=== PATIENT | male | born 1945 | race African-American/Black ===

== ENCOUNTER 2018-02-08 13:24 | Inpatient (IN) | payer OTHER ==
[~2018-02-08] VITALS: Ht 185.4 cm; Wt 132.5 kg
[~2018-02-08 13:24] MED LIST: AGG25C PO; ASP81EC PO; ASPI81TA27 PO; CHOL20007 BC; CLON0.1T PO; FURO40TA4 PO; HYDR50TA15 PO; LOSA100T27 PO; LOVA40TA72 PO; METO-158 PO; NIFE60TA59 PO
[2018-02-08 16:04] LABS: Basophils # (auto) 0.1 uL; Basophils % (auto) 0.9 % (0.0-2.0); Eosinophils # (auto) 0.2 uL; Eosinophils % (auto) 3.4 % (0.0-7.0); Hematocrit 40.9 % (41.0-53.0); Lymphocytes # (auto) 1.2 uL; Lymphocytes % (auto) 20.2 % (10.0-50.0); Mean Corpuscular Hemoglobin 29.5 pg (28.0-32.0); Mean Corpuscular Hgb Conc. 31.7 g/dL (32.0-36.0); Monocytes # (auto) 0.6 uL; Monocytes % (auto) 9.1 % (0.0-12.0); Neutrophils % (auto) 66.4 % (37.0-80.0); Nucleated Red Blood Cells % 0.1 %; Platelet Count (auto) 217 10^3/uL (140-450); Red Blood Cells 4.39 10^6/uL (4.5-5.90); Red Cell Distribution Width 13.7 % (11.8-14.3); White Blood Cell 6.1 10^3/uL (4.4-10.8)
[2018-02-08 16:06] LABS: Albumin 3.7 g/dL (3.4-5.0); BUN/Creatinine Ratio 8.7; Bilirubin, Total 0.5 mg/dL (0.2-1.0); Potassium 4.2 mmol/L (3.5-5.1); Total Protein 8.5 g/dL (6.4-8.2)
[2018-02-08] MEDS ORDERED: HYDROcodone-ACET 10/325MG TAB PO ONE (16:15)
[2018-02-08 16:40] LABS: Urine Bacteria MANY /hpf (None Seen); Urine Blood 2+ /uL (Negative); Urine Mucus FEW (None Seen); Urine Specific Gravity 1.013 (1.001-1.035); Urine WBC 137 /hpf (0 - 3); Urine WBC Clumps PRESENT /hpf (None Seen)
[2018-02-08] MEDS ORDERED: LEVOFLOXACIN 500MG 100 ML IV ONE (17:15)
[2018-02-08] MEDS ORDERED: FUROSEMIDE 40 MG TAB PO ONE (17:30)
[2018-02-08] MEDS ORDERED: cefTRIAXone 1GM/10ml IVPUSH 10 ML IV ONE (17:30)
[2018-02-08] MEDS ORDERED: cloNIDine HCL 0.1 MG TAB PO PRN (17:45)
[2018-02-08] MEDS ORDERED: hydrALAZINE HCL 25 MG TAB PO PRN (17:45)
[2018-02-08] MEDS ORDERED: MORPHINE SULF INJ 2 MG/ML SYRINGE 1ML IV PRN (17:45)
[2018-02-08] MEDS ORDERED: NITROGLYCERIN 0.4 MG SL TAB SL PRN (17:45)
[2018-02-08] MEDS ORDERED: TEMAZEPAM 15 MG CAP PO PRN (17:45)
[2018-02-08] MEDS ORDERED: ACETAMINOPHEN 325 MG TAB PO PRN (17:45)
[2018-02-08] MEDS ORDERED: ONDANSETRON HCL 4 MG/2 ML VIAL IV PRN (17:45)
[2018-02-08] MEDS ORDERED: DOCUSATE SOD 100 MG CAP PO PRN (17:45)
[2018-02-08] MEDS: NIFEdipine ER 30 MG TAB PO SCH (18:00)
[2018-02-08] MEDS: HYDROcodone-ACET 5/325MG TAB PO PRN (20:27)
[2018-02-08 22:00] VITALS: BP 161/98
[2018-02-08] MEDS ORDERED: ATORVASTATIN 20 MG TAB PO SCH (22:00)
[2018-02-08] MEDS ORDERED: LOSARTAN POTASSIUM 50 MG TAB PO SCH (22:00)
[2018-02-08] MEDS: SODIUM CHLOR 0.9% PF (SALINE LOCK) 10ML VIAL/SYR IV SCH (22:01)
[2018-02-08] MEDS: ASPIRIN-DIPYRIDAMOLE (25/200MG) CAPSULE PO SCH (22:03)
[2018-02-08 22:05] VITALS: BP 205/109
[2018-02-08] MEDS: cloNIDine HCL 0.1 MG TAB PO SCH (22:05)
[2018-02-08] MEDS: METOPROLOL TARTRATE 50 MG TAB PO SCH (22:05)
[2018-02-08] MEDS ORDERED: METO-5 PO (23:34)
[2018-02-08] MEDS ORDERED: CHOL20007 OR (23:34)
[2018-02-09] MEDS: HYDROcodone-ACET 5/325MG TAB PO PRN ×5 (00:29→17:59)
[2018-02-09 05:00] VITALS: BP 150/96
[2018-02-09 05:47] LABS: Basophils # (auto) 0.1 uL; Basophils % (auto) 0.9 % (0.0-2.0); Eosinophils # (auto) 0.2 uL; Eosinophils % (auto) 2.6 % (0.0-7.0); Hematocrit 36.4 % (41.0-53.0); Hemoglobin 11.6 g/dL (13.5-17.5); Lymphocytes # (auto) 1.3 uL; Lymphocytes % (auto) 17.2 % (10.0-50.0); Mean Corpuscular Hemoglobin 29.6 pg (28.0-32.0); Mean Corpuscular Hgb Conc. 31.9 g/dL (32.0-36.0); Mean Corpuscular Volume 92.7 fL (80.0-100.0); Monocytes # (auto) 0.7 uL; Monocytes % (auto) 9.9 % (0.0-12.0); Neutrophils # (auto) 5.1 uL; Neutrophils % (auto) 69.4 % (37.0-80.0); Platelet Count (auto) 210 10^3/uL (140-450); Red Blood Cells 3.92 10^6/uL (4.5-5.90); Red Cell Distribution Width 13.7 % (11.8-14.3); White Blood Cell 7.3 10^3/uL (4.4-10.8)
[2018-02-09] MEDS: METOPROLOL TARTRATE 50 MG TAB PO SCH ×2 (05:48→13:55)
[2018-02-09] MEDS: SODIUM CHLOR 0.9% PF (SALINE LOCK) 10ML VIAL/SYR IV SCH ×2 (05:48→13:55)
[2018-02-09 05:55] LABS: INR 0.97 (0.9-1.15); Prothrombin Time 10.4 sec (9.27-12.13)
[2018-02-09 06:07] LABS: Calcium 8.5 mg/dL (8.5-10.1); Potassium 4.7 mmol/L (3.5-5.1)
[2018-02-09 06:10] LABS: Albumin 2.9 g/dL (3.4-5.0); BUN/Creatinine Ratio 10.2
[2018-02-09 06:13] LABS: Bilirubin, Total 0.6 mg/dL (0.2-1.0); Total Protein 7.2 g/dL (6.4-8.2)
[2018-02-09 08:30] VITALS: BP 144/92
[2018-02-09] MEDS: ASPIRIN-DIPYRIDAMOLE (25/200MG) CAPSULE PO SCH (08:49)
[2018-02-09] MEDS: cloNIDine HCL 0.1 MG TAB PO SCH (08:50)
[2018-02-09] MEDS: NIFEdipine ER 30 MG TAB PO SCH ×2 (08:52→17:38)
[2018-02-09] MEDS ORDERED: cefTRIAXone 1GM/10ml IVPUSH 10 ML IV SCH (09:00)
[2018-02-09] MEDS ORDERED: ASPirin-EC 81 mg tab PO SCH (10:00)
[2018-02-09] MEDS ORDERED: FUROSEMIDE 40 MG TAB PO SCH (10:00)
[2018-02-09] MEDS ORDERED: CHOLECALCIFEROL (VITD3) 1,000 UNIT TAB PO SCH (10:00)
[2018-02-09 13:00] VITALS: BP 155/77
[2018-02-09] MEDS ORDERED: CIPR-217 PO (13:11)
[2018-02-09 17:21] VITALS: BP 163/98
== END 2018-02-09 18:12 | disposition home health service (06) | DRG 292 ==
LOC: ER 13:24 → OVERFLOW 13:25 → WEST WING 20:05
PROVIDERS: ADMIT Internal Medicine; ATTEND Internal Medicine
DX: I13.0 Hypertensive heart and chronic kidney disease with heart failure and stage 1 through stage 4 chronic kidney disease, or unspecified chronic kidney disease (principal); N39.0 Urinary tract infection, site not specified; N13.30 Unspecified hydronephrosis; J44.9 Chronic obstructive pulmonary disease, unspecified; R33.9 Retention of urine, unspecified; N18.3 Chronic kidney disease, stage 3 (moderate); K44.9 Diaphragmatic hernia without obstruction or gangrene; I70.0 Atherosclerosis of aorta; N32.89 Other specified disorders of bladder; D63.8 Anemia in other chronic diseases classified elsewhere; E78.5 Hyperlipidemia, unspecified; I50.9 Heart failure, unspecified; Z80.1 Family history of malignant neoplasm of trachea, bronchus and lung; Z82.5 Family history of asthma and other chronic lower respiratory diseases; Z86.73 Personal history of transient ischemic attack (TIA), and cerebral infarction without residual deficits; Z85.46 Personal history of malignant neoplasm of prostate; Z90.79 Acquired absence of other genital organ(s); Z79.899 Other long term (current) drug therapy; Z79.82 Long term (current) use of aspirin
CPT/HCPCS: 36415; 51702; 74176; 80053; 81001; 85025; 85610; 87086; 87088; 87186; 93926; 96365; 96375; J1956

== ENCOUNTER 2018-02-13 02:49 | Inpatient (IN) | payer OTHER ==
[~2018-02-13] VITALS: Ht 188 cm; Wt 130.4 kg
[~2018-02-13 02:49] MED LIST changes: -ASP81EC PO; -CHOL20007 BC; +CHOL20007 OR; +CIPR-217 PO; -LOSA100T27 PO; -METO-158 PO; +METO-5 PO
[2018-02-13 03:23] LABS: Urine Bacteria MANY /hpf (None Seen); Urine Blood 2+ /uL (Negative); Urine Specific Gravity 1.017 (1.001-1.035); Urine WBC 816 /hpf (0 - 3); Urine WBC Clumps PRESENT /hpf (None Seen)
[2018-02-13 03:44] LABS: Basophils # (auto) 0.1 uL; Basophils % (auto) 0.7 % (0.0-2.0); Eosinophils # (auto) 0.1 uL; Eosinophils % (auto) 0.7 % (0.0-7.0); Hematocrit 39.5 % (41.0-53.0); Hemoglobin 12.7 g/dL (13.5-17.5); Lymphocytes # (auto) 0.7 uL; Lymphocytes % (auto) 7.5 % (10.0-50.0); Mean Corpuscular Hemoglobin 29.8 pg (28.0-32.0); Mean Corpuscular Hgb Conc. 32.2 g/dL (32.0-36.0); Mean Corpuscular Volume 92.5 fL (80.0-100.0); Monocytes # (auto) 0.5 uL; Monocytes % (auto) 4.9 % (0.0-12.0); Neutrophils # (auto) 7.9 uL; Neutrophils % (auto) 86.2 % (37.0-80.0); Platelet Count (auto) 258 10^3/uL (140-450); Red Blood Cells 4.27 10^6/uL (4.5-5.90); Red Cell Distribution Width 13.6 % (11.8-14.3); White Blood Cell 9.2 10^3/uL (4.4-10.8)
[2018-02-13 04:03] LABS: Albumin 3.5 g/dL (3.4-5.0); BUN/Creatinine Ratio 11.9; Potassium 4.4 mmol/L (3.5-5.1)
[2018-02-13 04:05] LABS: Bilirubin, Total 0.3 mg/dL (0.2-1.0); Total Protein 8.6 g/dL (6.4-8.2)
[2018-02-13] MEDS ORDERED: SODIUM CHLORIDE 0.9% 500 ML IVB ONE (04:16)
[2018-02-13] MEDS ORDERED: ONDANSETRON HCL 4 MG/2 ML VIAL IV ONE (04:30)
[2018-02-13] MEDS ORDERED: NALBUPHINE HCL 10 MG/1ml INJECTION IV ONE (04:30)
[2018-02-13] MEDS ORDERED: PANTOPRAZOLE 40 MG/10 ML VIAL IV ONE (04:30)
[2018-02-13] MEDS ORDERED: ONDANSETRON HCL 4 MG/2 ML VIAL ONE (04:40)
[2018-02-13 04:56] LABS: Magnesium 2.3 mg/dL (1.6-2.6)
[2018-02-13 05:01] LABS: INR 0.99 (0.9-1.15); Partial Thromboplastin Time 31.3 sec (23.78-33.04); Prothrombin Time 10.6 sec (9.27-12.13)
[2018-02-13] MEDS ORDERED: CEFTRIAXONE SODIUM 2 GM in D5W 5% 50 ML IV ONE (06:15)
[2018-02-13] MEDS ORDERED: cefTRIAXone 1GM/10ml IVPUSH 10 ML IV ONE ×2 (06:30)
[2018-02-13] MEDS ORDERED: ONDANSETRON HCL 4 MG/2 ML VIAL IV PRN (07:00)
[2018-02-13] MEDS ORDERED: ACETAMINOPHEN 500 MG TAB PO PRN (07:00)
[2018-02-13] MEDS: METOPROLOL TARTRATE 50 MG TAB PO SCH (10:17)
[2018-02-13] MEDS: cefTRIAXone 1GM/10ml IVPUSH 10 ML IV SCH (10:17)
[2018-02-13] MEDS: NIFEdipine ER 30 MG TAB PO SCH (10:18)
[2018-02-13 11:16] VITALS: BP 154/88
[2018-02-13 13:00] VITALS: BP 167/97
[2018-02-13] MEDS: NALBUPHINE HCL 10 MG/1ml INJECTION IM PRN ×2 (15:39→22:03)
[2018-02-13 17:00] VITALS: BP 154/103
[2018-02-13] MEDS: PANTOPRAZOLE 40 MG/10 ML VIAL IV SCH ×2 (17:41→22:02)
[2018-02-13 20:00] VITALS: BP 145/73
[2018-02-13 21:54] VITALS: BP 145/73
[2018-02-14] MEDS: NALBUPHINE HCL 10 MG/1ml INJECTION IM PRN ×2 (02:09→05:57)
[2018-02-14] MEDS: HYDROcodone-ACET 5/325MG TAB PO PRN ×4 (03:24→21:09)
[2018-02-14 05:57] VITALS: BP 154/94
[2018-02-14 06:06] LABS: Basophils # (auto) 0 uL; Basophils % (auto) 0.5 % (0.0-2.0); Eosinophils # (auto) 0.1 uL; Eosinophils % (auto) 1.9 % (0.0-7.0); Hematocrit 37.5 % (41.0-53.0); Hemoglobin 11.8 g/dL (13.5-17.5); Lymphocytes # (auto) 1.2 uL; Lymphocytes % (auto) 15.9 % (10.0-50.0); Mean Corpuscular Hemoglobin 29.5 pg (28.0-32.0); Mean Corpuscular Hgb Conc. 31.5 g/dL (32.0-36.0); Mean Corpuscular Volume 93.6 fL (80.0-100.0); Monocytes # (auto) 0.8 uL; Monocytes % (auto) 11.3 % (0.0-12.0); Neutrophils # (auto) 5.2 uL; Neutrophils % (auto) 70.4 % (37.0-80.0); Platelet Count (auto) 232 10^3/uL (140-450); Red Blood Cells 4.01 10^6/uL (4.5-5.90); Red Cell Distribution Width 13.5 % (11.8-14.3); White Blood Cell 7.3 10^3/uL (4.4-10.8)
[2018-02-14 06:14] LABS: Calcium 8.6 mg/dL (8.5-10.1); Potassium 4.2 mmol/L (3.5-5.1)
[2018-02-14 06:18] LABS: BUN/Creatinine Ratio 13.1; Magnesium 2.7 mg/dL (1.6-2.6)
[2018-02-14] MEDS ORDERED: LIDOCAINE VISCOUS 2% 15ML UD ONE (08:09)
[2018-02-14] MEDS ORDERED: fentaNYL CITRATE 100 MCG/2 ML VL ONE (08:10)
[2018-02-14] MEDS ORDERED: diphenhdrAMINE HCL 50 MG/1 ML VL ONE (08:10)
[2018-02-14] MEDS: cefTRIAXone 1GM/10ml IVPUSH 10 ML IV SCH (08:10)
[2018-02-14] MEDS: PANTOPRAZOLE 40 MG/10 ML VIAL IV SCH (08:11)
[2018-02-14] MEDS: NIFEdipine ER 30 MG TAB PO SCH (08:11)
[2018-02-14] MEDS: METOPROLOL TARTRATE 50 MG TAB PO SCH (08:11)
[2018-02-14 09:11] VITALS: BP 145/83
[2018-02-14] MEDS: MIDAZOLAM HCL 5 MG/ML-1ML VIAL ONE ×2 (10:15→10:18)
[2018-02-14] MEDS ORDERED: hydrALAZINE HCL 20 MG/ML VL IV PRN (11:45)
[2018-02-14] MEDS: NALBUPHINE HCL 10 MG/1ml INJECTION IV PRN ×3 (11:53→22:40)
[2018-02-14 13:00] VITALS: BP 164/96
[2018-02-14] MEDS ORDERED: hydrALAZINE HCL 25 MG TAB PO SCH (14:00)
[2018-02-14] MEDS: hydrALAZINE HCL 25 MG TAB PO SCH ×2 (14:11→22:42)
[2018-02-14 16:52] VITALS: BP 154/81
[2018-02-14] MEDS ORDERED: PHENAZOPYRIDINE HCL 100 MG TAB PO ONE (17:45)
[2018-02-14 21:26] VITALS: BP 169/94
[2018-02-14] MEDS: PANTOPRAZOLE 40 MG TAB PO SCH (22:41)
[2018-02-15] MEDS: HYDROcodone-ACET 5/325MG TAB PO PRN ×3 (03:25→13:34)
[2018-02-15] MEDS: NALBUPHINE HCL 10 MG/1ml INJECTION IV PRN (04:35)
[2018-02-15 05:38] VITALS: BP 177/99
[2018-02-15] MEDS: hydrALAZINE HCL 25 MG TAB PO SCH ×2 (05:50→13:35)
[2018-02-15 06:14] LABS: Basophils # (auto) 0.1 uL; Basophils % (auto) 0.8 % (0.0-2.0); Eosinophils # (auto) 0.3 uL; Eosinophils % (auto) 2.7 % (0.0-7.0); Hematocrit 37.9 % (41.0-53.0); Hemoglobin 11.8 g/dL (13.5-17.5); Lymphocytes # (auto) 1.8 uL; Lymphocytes % (auto) 14.9 % (10.0-50.0); Mean Corpuscular Hgb Conc. 31.1 g/dL (32.0-36.0); Mean Corpuscular Volume 93.3 fL (80.0-100.0); Monocytes # (auto) 1.3 uL; Monocytes % (auto) 10.7 % (0.0-12.0); Neutrophils # (auto) 8.3 uL; Neutrophils % (auto) 70.9 % (37.0-80.0); Nucleated Red Blood Cells % 0.2 %; Platelet Count (auto) 259 10^3/uL (140-450); Red Blood Cells 4.06 10^6/uL (4.5-5.90); Red Cell Distribution Width 13.7 % (11.8-14.3); White Blood Cell 11.7 10^3/uL (4.4-10.8)
[2018-02-15 06:19] LABS: Potassium 4.3 mmol/L (3.5-5.1)
[2018-02-15 06:29] LABS: Calcium 8.8 mg/dL (8.5-10.1); Magnesium 2.8 mg/dL (1.6-2.6)
[2018-02-15] MEDS: PHENAZOPYRIDINE HCL 100 MG TAB PO SCH ×2 (08:24→12:57)
[2018-02-15] MEDS: cefTRIAXone 1GM/10ml IVPUSH 10 ML IV SCH (08:25)
[2018-02-15 09:00] VITALS: BP 154/95
[2018-02-15] MEDS: NIFEdipine ER 30 MG TAB PO SCH (10:12)
[2018-02-15] MEDS: METOPROLOL TARTRATE 50 MG TAB PO SCH (10:12)
[2018-02-15] MEDS: PANTOPRAZOLE 40 MG TAB PO SCH (10:13)
[2018-02-15] MEDS ORDERED: AMOXICILLIN/CLAVUL 875 MG TAB PO SCH (12:45)
[2018-02-15 15:10] VITALS: BP 145/86
== END 2018-02-15 15:50 | disposition home health service (06) | DRG 689 ==
LOC: ER 02:49 → CENTRAL 02:50 → TELE-CENTR 08:00
PROVIDERS: ADMIT Nurse Practitioner Family; ATTEND Internal Medicine
PROC: 0DB78ZX Excision of Stomach, Pylorus, Via Natural or Artificial Opening Endoscopic, Diagnostic (ICD-10-PCS; principal; 2018-02-14 10:13)
DX: N30.01 Acute cystitis with hematuria (principal); K29.61 Other gastritis with bleeding; K29.81 Duodenitis with bleeding; K57.91 Diverticulosis of intestine, part unspecified, without perforation or abscess with bleeding; I13.0 Hypertensive heart and chronic kidney disease with heart failure and stage 1 through stage 4 chronic kidney disease, or unspecified chronic kidney disease; N13.9 Obstructive and reflux uropathy, unspecified; K44.9 Diaphragmatic hernia without obstruction or gangrene; K40.90 Unilateral inguinal hernia, without obstruction or gangrene, not specified as recurrent; N18.3 Chronic kidney disease, stage 3 (moderate); E11.22 Type 2 diabetes mellitus with diabetic chronic kidney disease; I50.9 Heart failure, unspecified; E78.5 Hyperlipidemia, unspecified; E66.9 Obesity, unspecified; J44.9 Chronic obstructive pulmonary disease, unspecified; N32.0 Bladder-neck obstruction; N40.0 Benign prostatic hyperplasia without lower urinary tract symptoms; Z80.1 Family history of malignant neoplasm of trachea, bronchus and lung; Z82.5 Family history of asthma and other chronic lower respiratory diseases; Z79.82 Long term (current) use of aspirin; Z85.46 Personal history of malignant neoplasm of prostate; Z86.73 Personal history of transient ischemic attack (TIA), and cerebral infarction without residual deficits; Z90.79 Acquired absence of other genital organ(s)
CPT/HCPCS: 36415; 71046; 74176; 80048; 80053; 81001; 82150; 83605; 83690; 83735; 85025; 85610; 85730; 87081; 93005; 93926; 94761; 96361; 96374; 96375; C9113; J0696; J2250; J2405; J7060

== ENCOUNTER 2018-02-23 16:09 | Inpatient (IN) | payer OTHER ==
[2018-02-22 20:50] VITALS: BP 168/88
[~2018-02-23] VITALS: Ht 185.4 cm; Wt 135.0 kg
[~2018-02-23 16:09] MED LIST changes: -ASPI81TA27 PO; -CIPR-217 PO; -FURO40TA4 PO
[2018-02-23 19:18] LABS: Basophils # (auto) 0.1 uL; Basophils % (auto) 1.3 % (0.0-2.0); Eosinophils # (auto) 0.3 uL; Hemoglobin 11.6 g/dL (13.5-17.5); Lymphocytes # (auto) 1.5 uL; Lymphocytes % (auto) 21.6 % (10.0-50.0); Mean Corpuscular Hemoglobin 28.7 pg (28.0-32.0); Mean Corpuscular Hgb Conc. 31.4 g/dL (32.0-36.0); Mean Corpuscular Volume 91.4 fL (80.0-100.0); Monocytes # (auto) 0.8 uL; Monocytes % (auto) 11.2 % (0.0-12.0); Neutrophils # (auto) 4.2 uL; Neutrophils % (auto) 61.9 % (37.0-80.0); Platelet Count (auto) 268 10^3/uL (140-450); Red Blood Cells 4.05 10^6/uL (4.5-5.90); Red Cell Distribution Width 13.4 % (11.8-14.3); White Blood Cell 6.8 10^3/uL (4.4-10.8)
[2018-02-23 19:27] LABS: INR 0.95 (0.9-1.15); Partial Thromboplastin Time 27.1 sec (23.78-33.04); Prothrombin Time 10.2 sec (9.27-12.13)
[2018-02-23 19:32] LABS: Albumin 3.1 g/dL (3.4-5.0); BUN/Creatinine Ratio 15.2; Calcium 8.1 mg/dL (8.5-10.1); Magnesium 2.3 mg/dL (1.6-2.6); Potassium 4.1 mmol/L (3.5-5.1)
[2018-02-23 19:35] LABS: Bilirubin, Total 0.4 mg/dL (0.2-1.0); Total Protein 7.8 g/dL (6.4-8.2)
[2018-02-23] MEDS ORDERED: NIFEdipine 10 MG CAP PO ONE (19:45)
[2018-02-23] MEDS ORDERED: ACETAMINOPHEN 500 MG TAB PO PRN (19:45)
[2018-02-23] MEDS ORDERED: LORazepam 0.5 MG TAB PO PRN (19:45)
[2018-02-23] MEDS ORDERED: MORPHINE SULF(PF) 0.5MG/ML 10ML VIAL IV PRN (19:45)
[2018-02-23] MEDS ORDERED: hydrALAZINE HCL 25 MG TAB PO ONE (19:45)
[2018-02-23] MEDS ORDERED: cefTRIAXone 1GM/10ml IVPUSH 10 ML IV ONE (19:45)
[2018-02-23] MEDS ORDERED: NITROGLYCERIN 0.4 MG SL TAB SL PRN (19:45)
[2018-02-23] MEDS ORDERED: hydrALAZINE HCL 20 MG/ML VL IV ONE (19:45)
[2018-02-23] MEDS ORDERED: DEXTROSE (50%) 50ML SYRG IV PRN (19:45)
[2018-02-23] MEDS ORDERED: METOPROLOL TARTRATE 50 MG TAB PO ONE (19:45)
[2018-02-23] MEDS ORDERED: cloNIDine HCL 0.1 MG TAB PO ONE (19:45)
[2018-02-23] MEDS ORDERED: PROMETHAZINE HCL 25 MG/ML 1ML IV PRN (19:45)
[2018-02-23] MEDS ORDERED: TEMAZEPAM 15 MG CAP PO PRN (19:45)
[2018-02-23] MEDS: PRAVASTATIN SODIUM 20 MG TAB PO SCH (21:31)
[2018-02-23] MEDS: hydrALAZINE HCL 25 MG TAB PO SCH (21:31)
[2018-02-23] MEDS: ACCU-CHEK COMFORT CURVE STRIP VI SCH (21:32)
[2018-02-23] MEDS: NIFEdipine ER 30 MG TAB PO SCH (21:32)
[2018-02-23] MEDS ORDERED: LOSA100T27 PO (21:56)
[2018-02-23] MEDS ORDERED: METO-169 PO (21:56)
[2018-02-23] MEDS ORDERED: PANT40TA2 PO (21:56)
[2018-02-23] MEDS: InsuLIN REG 1unit/0.01ml Soln (100units/ml) SC SCH (21:57)
[2018-02-23 21:58] VITALS: BP 168/88
[2018-02-23 23:20] VITALS: BP 117/62
[2018-02-24 04:17] VITALS: BP 156/100
[2018-02-24] MEDS: HYDROcodone-ACET 5/325MG TAB PO PRN ×2 (04:22→10:15)
[2018-02-24] MEDS: ACCU-CHEK COMFORT CURVE STRIP VI SCH ×4 (06:03→22:13)
[2018-02-24] MEDS: InsuLIN REG 1unit/0.01ml Soln (100units/ml) SC SCH ×4 (06:03→22:00)
[2018-02-24 08:25] VITALS: BP 148/91
[2018-02-24] MEDS: ENALAPRIL MALEATE 10 MG TAB PO SCH (10:09)
[2018-02-24] MEDS: METOPROLOL SUCCINATE XL 50 MG TAB PO SCH (10:10)
[2018-02-24] MEDS: PANTOPRAZOLE 40 MG TAB PO SCH (10:11)
[2018-02-24] MEDS: NIFEdipine ER 30 MG TAB PO SCH ×2 (10:11→22:12)
[2018-02-24] MEDS: cloNIDine HCL 0.1 MG TAB PO SCH ×3 (10:12→22:12)
[2018-02-24] MEDS: hydrALAZINE HCL 25 MG TAB PO SCH ×2 (10:12→22:11)
[2018-02-24] MEDS: cefTRIAXone 1GM/10ml IVPUSH 10 ML IV SCH (10:14)
[2018-02-24] MEDS: NITROGLYCERIN 0.2MG/HR TOPICAL PATCH TD SCH (10:14)
[2018-02-24] MEDS: NALBUPHINE HCL 10 MG/1ml INJECTION IV PRN ×3 (12:19→21:00)
[2018-02-24 12:57] VITALS: BP 154/90
[2018-02-24] MEDS ORDERED: fentaNYL CITRATE 100 MCG/2 ML VL ONE (14:48)
[2018-02-24] MEDS ORDERED: MIDAZOLAM HCL 1MG/1ML-2 ML VIAL ONE (14:48)
[2018-02-24] MEDS ORDERED: LIDOCAINE 2% (LOCAL ANESTH.) PF 5ml SDV ONE ×2 (15:28→15:47)
[2018-02-24 17:00] VITALS: BP 154/84
[2018-02-24 22:00] VITALS: BP 145/67
[2018-02-24] MEDS: PRAVASTATIN SODIUM 20 MG TAB PO SCH (22:12)
[2018-02-24 23:39] LABS: Urine Bacteria NONE SEEN /hpf (None Seen); Urine Blood 2+ /uL (Negative); Urine Specific Gravity 1.007 (1.001-1.035); Urine WBC 2 /hpf (0 - 3)
[2018-02-25] MEDS: NALBUPHINE HCL 10 MG/1ml INJECTION IV PRN ×3 (00:45→08:55)
[2018-02-25 05:18] VITALS: BP 116/69
[2018-02-25] MEDS: ACCU-CHEK COMFORT CURVE STRIP VI SCH ×3 (06:20→17:00)
[2018-02-25] MEDS: InsuLIN REG 1unit/0.01ml Soln (100units/ml) SC SCH ×3 (06:20→17:00)
[2018-02-25 06:54] LABS: Basophils # (auto) 0 uL; Basophils % (auto) 0.9 % (0.0-2.0); Eosinophils # (auto) 0.2 uL; Eosinophils % (auto) 4.1 % (0.0-7.0); Hematocrit 35.2 % (41.0-53.0); Hemoglobin 11.2 g/dL (13.5-17.5); Lymphocytes % (auto) 19.3 % (10.0-50.0); Mean Corpuscular Hemoglobin 29.5 pg (28.0-32.0); Mean Corpuscular Volume 92.1 fL (80.0-100.0); Monocytes # (auto) 0.6 uL; Monocytes % (auto) 11.6 % (0.0-12.0); Neutrophils # (auto) 3.4 uL; Neutrophils % (auto) 64.1 % (37.0-80.0); Platelet Count (auto) 232 10^3/uL (140-450); Red Blood Cells 3.82 10^6/uL (4.5-5.90); Red Cell Distribution Width 13.4 % (11.8-14.3); White Blood Cell 5.4 10^3/uL (4.4-10.8)
[2018-02-25 07:00] LABS: Partial Thromboplastin Time 27.2 sec (23.78-33.04); Prothrombin Time 10.7 sec (9.27-12.13)
[2018-02-25 07:08] LABS: BUN/Creatinine Ratio 15.7; Calcium 8.5 mg/dL (8.5-10.1); Potassium 4.2 mmol/L (3.5-5.1)
[2018-02-25 07:53] VITALS: BP 149/84
[2018-02-25] MEDS: cefTRIAXone 1GM/10ml IVPUSH 10 ML IV SCH (09:00)
[2018-02-25] MEDS: NIFEdipine ER 30 MG TAB PO SCH (10:00)
[2018-02-25] MEDS: METOPROLOL SUCCINATE XL 50 MG TAB PO SCH (10:00)
[2018-02-25] MEDS: hydrALAZINE HCL 25 MG TAB PO SCH (10:00)
[2018-02-25] MEDS: PANTOPRAZOLE 40 MG TAB PO SCH (10:00)
[2018-02-25] MEDS: NITROGLYCERIN 0.2MG/HR TOPICAL PATCH TD SCH (10:00)
[2018-02-25] MEDS: ENALAPRIL MALEATE 10 MG TAB PO SCH (10:00)
[2018-02-25] MEDS: cloNIDine HCL 0.1 MG TAB PO SCH (10:00)
[2018-02-25 12:18] VITALS: BP 154/85
[2018-02-25] MEDS: HYDROcodone-ACET 5/325MG TAB PO PRN (13:57)
[2018-02-25 16:49] VITALS: BP 157/82
[2018-02-26] MEDS ORDERED: ERGOCALCIFEROL 50,000 UNIT(1.25MG) CAP PO SCH (10:00)
[2018-03-08] MEDS ORDERED: FEBU80TA PO (13:30)
[2018-03-08] MEDS ORDERED: FURO40TA4 PO (13:30)
[2018-03-08] MEDS ORDERED: ALBU1AER4 IN (13:55)
[2018-03-08] MEDS ORDERED: ASPI81TA27 PO (13:55)
== END 2018-02-25 17:35 | disposition home health service (06) | DRG 697 ==
LOC: ER 16:09 → TELE 16:10 → TELE-EAST 20:50
PROVIDERS: ADMIT Internal Medicine; ATTEND Internal Medicine
PROC: 0T9B30Z Drainage of Bladder with Drainage Device, Percutaneous Approach (ICD-10-PCS; principal; 2018-02-24)
DX: N35.9 Urethral stricture, unspecified (principal); N13.8 Other obstructive and reflux uropathy; I11.0 Hypertensive heart disease with heart failure; I50.9 Heart failure, unspecified; N40.1 Benign prostatic hyperplasia with lower urinary tract symptoms; R32 Unspecified urinary incontinence; J44.9 Chronic obstructive pulmonary disease, unspecified; E78.5 Hyperlipidemia, unspecified; E66.9 Obesity, unspecified; E11.9 Type 2 diabetes mellitus without complications; Z82.49 Family history of ischemic heart disease and other diseases of the circulatory system; Z82.5 Family history of asthma and other chronic lower respiratory diseases; Z86.73 Personal history of transient ischemic attack (TIA), and cerebral infarction without residual deficits; Z90.79 Acquired absence of other genital organ(s); Z68.39 Body mass index [BMI] 39.0-39.9, adult
CPT/HCPCS: 10022; 36415; 51702; 71045; 72192; 77012; 80048; 80053; 81001; 82962; 83036; 83735; 83880; 85025; 85610; 85730; 87081; 87086; 93005; 94761; 96374; C1729; J2250

== ENCOUNTER 2018-05-06 14:26 | Emergency (ER) | payer OTHER ==
[~2018-05-06] VITALS: Ht 188 cm; Wt 127.0 kg
[~2018-05-06 14:26] MED LIST changes: +ALBU1AER4 IN; +ASPI81TA27 PO; +FEBU80TA PO; +FURO40TA4 PO; +LOSA100T27 PO; +METO-169 PO; -METO-5 PO; +PANT40TA2 PO
[2018-05-06 14:33] VITALS: BP 147/80
[2018-05-07] MEDS ORDERED: CIPR-187 PO (10:32)
[2018-05-07] MEDS ORDERED: HYDR-4683 PO (11:16)
== END 2018-05-06 14:37 | disposition left against medical advice (07) ==
LOC: ER 14:29
DX: R33.9 Retention of urine, unspecified (principal); I11.0 Hypertensive heart disease with heart failure; I50.9 Heart failure, unspecified; E11.9 Type 2 diabetes mellitus without complications; J44.9 Chronic obstructive pulmonary disease, unspecified; Z86.73 Personal history of transient ischemic attack (TIA), and cerebral infarction without residual deficits; Z79.899 Other long term (current) drug therapy; Z53.29 Procedure and treatment not carried out because of patient's decision for other reasons

== ENCOUNTER 2018-05-06 17:28 | Inpatient (IN) | payer OTHER ==
[~2018-05-06] VITALS: Ht 185.4 cm; Wt 127.0 kg
[2018-05-06] MEDS ORDERED: SODIUM CHLORIDE LOCK 10 ML ONE (19:02)
[2018-05-06] MEDS ORDERED: MIDAZOLAM HCL 1MG/1ML-2 ML VIAL ONE (19:02)
[2018-05-06] MEDS ORDERED: PROPOFOL 10 MG/ML 20 ML IV ONE (19:02)
[2018-05-06] MEDS ORDERED: ONDANSETRON HCL 4 MG/2 ML VIAL ONE (19:02)
[2018-05-06] MEDS ORDERED: fentaNYL CITRATE 100 MCG/2 ML VL ONE (19:13)
[2018-05-06] MEDS ORDERED: PROMETHAZINE HCL 25 MG/ML 1ML IV PRN (19:15)
[2018-05-06] MEDS ORDERED: ACETAMINOPHEN 500 MG TAB PO PRN (19:15)
[2018-05-06] MEDS ORDERED: DEXTROSE (50%) 50ML SYRG IV PRN (19:15)
[2018-05-06] MEDS ORDERED: traMADol HCL 50 MG TAB PO PRN (19:15)
[2018-05-06] MEDS ORDERED: cefTRIAXone 1GM/10ml IVPUSH 10 ML IV ONE (19:15)
[2018-05-06] MEDS ORDERED: MORPHINE SULF INJ 2 MG/ML SYRINGE 1ML IV PRN (19:15)
[2018-05-06] MEDS ORDERED: METOCLOPRAMIDE HCL 5MG/ml INJ 2ml VIAL IV ONE (19:15)
[2018-05-06] MEDS ORDERED: ACCU-CHEK COMFORT CURVE STRIP VI ONE (19:15)
[2018-05-06] MEDS ORDERED: Albuterol Sulfate (Proair Respiclick) 108 MCG IN SCH (19:15)
[2018-05-06] MEDS ORDERED: fentaNYL CITRATE 100 MCG/2 ML VL IV ONE (20:00)
[2018-05-06 20:02] LABS: Basophils # (auto) 0 uL; Basophils % (auto) 0.7 % (0.0-2.0); Eosinophils # (auto) 0.2 uL; Eosinophils % (auto) 3.5 % (0.0-7.0); Hematocrit 36.4 % (41.0-53.0); Hemoglobin 11.3 g/dL (13.5-17.5); Lymphocytes # (auto) 1.5 uL; Lymphocytes % (auto) 23.6 % (10.0-50.0); Mean Corpuscular Hemoglobin 30.3 pg (28.0-32.0); Mean Corpuscular Hgb Conc. 31.1 g/dL (32.0-36.0); Mean Corpuscular Volume 97.4 fL (80.0-100.0); Monocytes # (auto) 0.6 uL; Monocytes % (auto) 9.6 % (0.0-12.0); Neutrophils % (auto) 62.6 % (37.0-80.0); Nucleated Red Blood Cells % 0.2 %; Platelet Count (auto) 217 10^3/uL (140-450); Red Blood Cells 3.74 10^6/uL (4.5-5.90); Red Cell Distribution Width 14.6 % (11.8-14.3); White Blood Cell 6.4 10^3/uL (4.4-10.8)
[2018-05-06] MEDS ORDERED: SUCCINYLCHOLINE CHLORIDE 20 MG/ML 10ML VIAL IV ONE (20:07)
[2018-05-06 20:12] LABS: INR 0.96 (0.9-1.15); Partial Thromboplastin Time 26.9 sec (23.78-33.04); Prothrombin Time 10.3 sec (9.27-12.13)
[2018-05-06 20:17] LABS: Albumin 3.2 g/dL (3.4-5.0); Calcium 8.5 mg/dL (8.5-10.1)
[2018-05-06 20:20] LABS: BUN/Creatinine Ratio 12.7
[2018-05-06 21:00] LABS: Bilirubin, Total 0.4 mg/dL (0.2-1.0); Potassium 3.5 mmol/L (3.5-5.1); Total Protein 7.7 g/dL (6.4-8.2)
[2018-05-06] MEDS ORDERED: BELLADONNA ALKAL/OPIUM (16.2/30MG) RECT SUPP PR ONE (21:15)
[2018-05-06] MEDS ORDERED: PRAVASTATIN SODIUM 20 MG TAB PO SCH (22:00)
[2018-05-06 22:22] VITALS: BP 157/90
[2018-05-06 23:00] VITALS: BP 152/90
[2018-05-06] MEDS: cloNIDine HCL 0.1 MG TAB PO SCH (23:17)
[2018-05-06] MEDS: NIFEdipine ER 30 MG TAB PO SCH (23:18)
[2018-05-06] MEDS: ASPIRIN-DIPYRIDAMOLE (25/200MG) CAPSULE PO SCH (23:18)
[2018-05-06] MEDS: PANTOPRAZOLE 40 MG TAB PO SCH (23:18)
[2018-05-06] MEDS: hydrALAZINE HCL 25 MG TAB PO SCH (23:19)
[2018-05-06] MEDS: METOPROLOL TARTRATE 50 MG TAB PO SCH (23:20)
[2018-05-06] MEDS: InsuLIN REG 1unit/0.01ml Soln (100units/ml) SC SCH (23:28)
[2018-05-06] MEDS: ACCU-CHEK COMFORT CURVE STRIP VI SCH (23:28)
[2018-05-07 03:32] LABS: Urine Bacteria NONE SEEN /hpf (None Seen); Urine Blood 3+ /uL (Negative); Urine Specific Gravity 1.016 (1.001-1.035); Urine WBC 358 /hpf (0 - 3)
[2018-05-07 04:47] VITALS: BP 118/78
[2018-05-07] MEDS: InsuLIN REG 1unit/0.01ml Soln (100units/ml) SC SCH ×2 (06:38→11:17)
[2018-05-07] MEDS: ACCU-CHEK COMFORT CURVE STRIP VI SCH ×2 (06:38→11:17)
[2018-05-07] MEDS ORDERED: ALBUTEROL SULF 2.5 MG/0.5ML(0.5%) NEB SOLN NEB PRN (07:30)
[2018-05-07 09:00] VITALS: BP 130/74
[2018-05-07] MEDS ORDERED: cefTRIAXone 1GM/10ml IVPUSH 10 ML IV SCH (09:00)
[2018-05-07] MEDS: NIFEdipine ER 30 MG TAB PO SCH (09:50)
[2018-05-07] MEDS: PANTOPRAZOLE 40 MG TAB PO SCH (09:51)
[2018-05-07] MEDS: ASPIRIN-DIPYRIDAMOLE (25/200MG) CAPSULE PO SCH (09:51)
[2018-05-07] MEDS: METOPROLOL TARTRATE 50 MG TAB PO SCH (09:51)
[2018-05-07] MEDS: hydrALAZINE HCL 25 MG TAB PO SCH (09:51)
[2018-05-07] MEDS: cloNIDine HCL 0.1 MG TAB PO SCH (09:52)
[2018-05-07] MEDS ORDERED: FUROSEMIDE 40 MG TAB PO SCH (10:00)
[2018-05-07] MEDS ORDERED: LOSARTAN POTASSIUM 50 MG TAB PO SCH (10:00)
[2018-05-07] MEDS ORDERED: CIPR-187 PO (10:32)
[2018-05-07] MEDS ORDERED: HYDR-4683 PO (11:16)
[2018-05-07] MEDS ORDERED: HYDROcodone-ACET 5/325MG TAB PO PRN (11:30)
[2018-05-07 11:47] VITALS: BP 130/74
== END 2018-05-07 13:05 | disposition home or self-care (01) | DRG 669 ==
LOC: ER 17:32 → OVERFLOW 17:33 → CENTRAL 22:05
PROVIDERS: ADMIT Internal Medicine; ATTEND Internal Medicine
PROC: 0TBC8ZZ Excision of Bladder Neck, Via Natural or Artificial Opening Endoscopic (ICD-10-PCS; principal; 2018-05-06 20:07)
DX: R33.9 Retention of urine, unspecified (principal); N39.0 Urinary tract infection, site not specified; I13.0 Hypertensive heart and chronic kidney disease with heart failure and stage 1 through stage 4 chronic kidney disease, or unspecified chronic kidney disease; E11.22 Type 2 diabetes mellitus with diabetic chronic kidney disease; E78.5 Hyperlipidemia, unspecified; N18.9 Chronic kidney disease, unspecified; K21.9 Gastro-esophageal reflux disease without esophagitis; M10.9 Gout, unspecified; E66.9 Obesity, unspecified; I50.9 Heart failure, unspecified; J44.9 Chronic obstructive pulmonary disease, unspecified; Z82.49 Family history of ischemic heart disease and other diseases of the circulatory system; Z82.5 Family history of asthma and other chronic lower respiratory diseases; Z86.73 Personal history of transient ischemic attack (TIA), and cerebral infarction without residual deficits; Z80.9 Family history of malignant neoplasm, unspecified; Z79.899 Other long term (current) drug therapy
CPT/HCPCS: 36415; 80053; 81001; 82962; 83036; 83735; 85025; 85610; 85730; 87086; 93005; 94761; J0330; J0696; J2250; J2405; J2704

== ENCOUNTER 2018-06-19 14:03 | Emergency (ER) | payer OTHER ==
[~2018-06-19] VITALS: Ht 185.4 cm; Wt 127.0 kg
[~2018-06-19 14:03] MED LIST changes: +CIPR-187 PO; +HYDR-4683 PO; +LOSA-49 PO; -LOSA100T27 PO
[2018-06-19] MEDS ORDERED: MORPHINE SULFATE 4 MG/ML SYR/VIAL IV ONE (14:45)
[2018-06-19] MEDS ORDERED: ONDANSETRON HCL 4 MG/2 ML VIAL IV ONE (14:45)
[2018-06-19 15:27] LABS: Basophils # (auto) 0.1 uL; Basophils % (auto) 0.7 % (0.0-2.0); Eosinophils # (auto) 0.2 uL; Eosinophils % (auto) 2.3 % (0.0-7.0); Hematocrit 39.7 % (41.0-53.0); Hemoglobin 12.8 g/dL (13.5-17.5); Lymphocytes # (auto) 0.9 uL; Lymphocytes % (auto) 11.5 % (10.0-50.0); Mean Corpuscular Hemoglobin 29.9 pg (28.0-32.0); Mean Corpuscular Hgb Conc. 32.2 g/dL (32.0-36.0); Mean Corpuscular Volume 92.9 fL (80.0-100.0); Monocytes # (auto) 0.5 uL; Monocytes % (auto) 7.2 % (0.0-12.0); Neutrophils # (auto) 5.9 uL; Neutrophils % (auto) 78.3 % (37.0-80.0); Nucleated Red Blood Cells % 0.1 %; Platelet Count (auto) 238 10^3/uL (140-450); Red Blood Cells 4.28 10^6/uL (4.5-5.90); Red Cell Distribution Width 14.3 % (11.8-14.3); White Blood Cell 7.5 10^3/uL (4.4-10.8)
[2018-06-19 15:44] LABS: Albumin 3.6 g/dL (3.4-5.0); BUN/Creatinine Ratio 12.8; Calcium 8.8 mg/dL (8.5-10.1); Potassium 3.9 mmol/L (3.5-5.1)
[2018-06-19 15:47] LABS: INR 0.93 (0.9-1.15); Partial Thromboplastin Time 28.2 sec (23.78-33.04)
[2018-06-19 15:48] LABS: Bilirubin, Total 0.3 mg/dL (0.2-1.0); Total Protein 8.6 g/dL (6.4-8.2)
[2018-06-19] MEDS ORDERED: LIDOCAINE 2% JELLY 11ml (GLYDO) ONE (15:51)
[2018-06-19] MEDS ORDERED: LIDOCAINE 2% JELLY 11ml (GLYDO) UR ONE (16:30)
[2018-06-19 16:51] VITALS: BP 149/85
== END 2018-06-19 17:13 | disposition home or self-care (01) ==
LOC: ER 14:03
DX: I13.0 Hypertensive heart and chronic kidney disease with heart failure and stage 1 through stage 4 chronic kidney disease, or unspecified chronic kidney disease (principal); E11.22 Type 2 diabetes mellitus with diabetic chronic kidney disease; N18.3 Chronic kidney disease, stage 3 (moderate); I50.9 Heart failure, unspecified; M10.9 Gout, unspecified; J44.9 Chronic obstructive pulmonary disease, unspecified; Z79.899 Other long term (current) drug therapy; Z87.891 Personal history of nicotine dependence
CPT/HCPCS: 36415; 51702; 80053; 85025; 85610; 85730; 94761; 96374; 96375; 99284; J2270; J2405

== ENCOUNTER 2018-07-26 07:08 | Inpatient (IN) | payer OTHER ==
[~2018-07-26] VITALS: Ht 186.7 cm; Wt 129.7 kg
[2018-07-26] MEDS: MORPHINE SULFATE 4 MG/ML SYR/VIAL ONE (08:17)
[2018-07-26] MEDS: ONDANSETRON HCL 4 MG/2 ML VIAL ONE (08:17)
[2018-07-26 08:19] LABS: Basophils # (auto) 0.1 uL; Basophils % (auto) 1.1 % (0.0-2.0); Eosinophils # (auto) 0.1 uL; Eosinophils % (auto) 1.4 % (0.0-7.0); Hematocrit 41.1 % (41.0-53.0); Hemoglobin 12.9 g/dL (13.5-17.5); Lymphocytes # (auto) 1.1 uL; Lymphocytes % (auto) 15.5 % (10.0-50.0); Mean Corpuscular Hgb Conc. 31.4 g/dL (32.0-36.0); Mean Corpuscular Volume 92.4 fL (80.0-100.0); Monocytes # (auto) 0.6 uL; Monocytes % (auto) 8.5 % (0.0-12.0); Neutrophils # (auto) 5.1 uL; Neutrophils % (auto) 73.5 % (37.0-80.0); Platelet Count (auto) 238 10^3/uL (140-450); Red Blood Cells 4.45 10^6/uL (4.5-5.90); Red Cell Distribution Width 14.5 % (11.8-14.3)
[2018-07-26 08:34] LABS: Albumin 3.6 g/dL (3.4-5.0); Calcium 8.9 mg/dL (8.5-10.1); Potassium 4.2 mmol/L (3.5-5.1)
[2018-07-26 08:37] LABS: BUN/Creatinine Ratio 13.2; Bilirubin, Total 0.4 mg/dL (0.2-1.0); Total Protein 8.5 g/dL (6.4-8.2)
[2018-07-26] MEDS ORDERED: LIDOCAINE 2% JELLY 11ml (GLYDO) ONE (09:01)
[2018-07-26] MEDS ORDERED: LIDOCAINE HCL 2% TOP JELLY 5ML TOP ONE (09:15)
[2018-07-26] MEDS ORDERED: MORPHINE SULFATE 4 MG/ML SYR/VIAL IV ONE (09:15)
[2018-07-26] MEDS ORDERED: ONDANSETRON HCL 4 MG/2 ML VIAL IM ONE (09:15)
[2018-07-26] MEDS ORDERED: HYDROmorphone HCL 2 MG/ML VL IV ONE (09:30)
[2018-07-26] MEDS ORDERED: ONDANSETRON HCL 4 MG/2 ML VIAL IV ONE (09:30)
[2018-07-26] MEDS ORDERED: FUROSEMIDE 40 MG TAB PO ONE (12:30)
[2018-07-26] MEDS ORDERED: ALBUTEROL SULF 2.5 MG/0.5ML(0.5%) NEB SOLN NEB PRN (12:30)
[2018-07-26] MEDS ORDERED: PANTOPRAZOLE 40 MG TAB PO ONE (12:30)
[2018-07-26] MEDS ORDERED: cloNIDine HCL 0.1 MG TAB PO PRN (12:30)
[2018-07-26 12:33] LABS: Urine Bacteria FEW /hpf (None Seen); Urine Blood 2+ /uL (Negative); Urine Specific Gravity 1.014 (1.001-1.035); Urine WBC 46 /hpf (0 - 3)
[2018-07-26] MEDS ORDERED: HYDROcodone-ACET 5/325MG TAB PO PRN (12:45)
[2018-07-26] MEDS ORDERED: NITROGLYCERIN 0.4 MG SL TAB SL PRN (12:45)
[2018-07-26] MEDS ORDERED: TEMAZEPAM 15 MG CAP PO PRN (12:45)
[2018-07-26] MEDS ORDERED: cefTRIAXone 1GM/50ML D5W 50 ML IV ONE (12:45)
[2018-07-26] MEDS ORDERED: DOCUSATE SOD 100 MG CAP PO PRN (12:45)
[2018-07-26] MEDS ORDERED: MORPHINE SULFATE 4 MG/ML SYR/VIAL IV PRN ×2 (12:45)
[2018-07-26] MEDS ORDERED: ONDANSETRON HCL 4 MG/2 ML VIAL IV PRN (12:45)
[2018-07-26] MEDS ORDERED: ACETAMINOPHEN 325 MG TAB PO PRN (12:45)
[2018-07-26] MEDS ORDERED: FAMOTIDINE 20 MG TAB PO SCH (12:51)
[2018-07-26] MEDS: SODIUM CHLOR 0.9% PF (SALINE LOCK) 10ML VIAL/SYR IV SCH ×2 (13:29→23:01)
[2018-07-26 17:00] VITALS: BP 144/84
[2018-07-26 20:20] VITALS: BP 144/84
[2018-07-26 22:00] VITALS: BP 145/79
[2018-07-26] MEDS ORDERED: ATORVASTATIN 20 MG TAB PO SCH (22:00)
[2018-07-26] MEDS: ASPIRIN-DIPYRIDAMOLE (25/200MG) CAPSULE PO SCH (22:47)
[2018-07-26] MEDS: hydrALAZINE HCL 25 MG TAB PO SCH (22:49)
[2018-07-26] MEDS: NIFEdipine ER 30 MG TAB PO SCH (22:52)
[2018-07-26] MEDS: ASCORBIC ACID 500 MG TAB PO SCH (22:53)
[2018-07-26] MEDS: cloNIDine HCL 0.1 MG TAB PO SCH (22:54)
[2018-07-26 23:23] VITALS: BP 145/79
[2018-07-27 05:49] VITALS: BP 146/79
[2018-07-27] MEDS: SODIUM CHLOR 0.9% PF (SALINE LOCK) 10ML VIAL/SYR IV SCH ×2 (06:39→14:00)
[2018-07-27 06:48] LABS: Basophils # (auto) 0 uL; Basophils % (auto) 0.8 % (0.0-2.0); Eosinophils # (auto) 0.2 uL; Eosinophils % (auto) 2.9 % (0.0-7.0); Hematocrit 37.7 % (41.0-53.0); Hemoglobin 11.9 g/dL (13.5-17.5); Lymphocytes # (auto) 1.2 uL; Mean Corpuscular Hemoglobin 29.6 pg (28.0-32.0); Mean Corpuscular Hgb Conc. 31.7 g/dL (32.0-36.0); Mean Corpuscular Volume 93.4 fL (80.0-100.0); Monocytes # (auto) 0.7 uL; Neutrophils % (auto) 66.3 % (37.0-80.0); Nucleated Red Blood Cells % 0.1 %; Platelet Count (auto) 195 10^3/uL (140-450); Red Blood Cells 4.03 10^6/uL (4.5-5.90); Red Cell Distribution Width 14.5 % (11.8-14.3); White Blood Cell 6.1 10^3/uL (4.4-10.8)
[2018-07-27 07:05] LABS: Albumin 3.1 g/dL (3.4-5.0); BUN/Creatinine Ratio 12.9; Calcium 8.5 mg/dL (8.5-10.1); Potassium 4.5 mmol/L (3.5-5.1)
[2018-07-27 07:08] LABS: Bilirubin, Total 0.3 mg/dL (0.2-1.0); Total Protein 7.4 g/dL (6.4-8.2)
[2018-07-27 08:00] VITALS: BP 149/81
[2018-07-27 09:00] VITALS: BP 149/81
[2018-07-27] MEDS ORDERED: cefTRIAXone 1GM/50ML D5W 50 ML IV SCH (09:00)
[2018-07-27] MEDS ORDERED: ASPirin-EC 81 mg tab PO SCH (10:00)
[2018-07-27] MEDS ORDERED: CHOLECALCIFEROL (VITD3) 1,000 UNIT TAB PO SCH (10:00)
[2018-07-27] MEDS ORDERED: ULORIC 80MG PO SCH (10:00)
[2018-07-27] MEDS ORDERED: FUROSEMIDE 40 MG TAB PO SCH (10:00)
[2018-07-27] MEDS ORDERED: MULTIPLE VITAMIN TAB PO SCH (10:00)
[2018-07-27] MEDS ORDERED: PANTOPRAZOLE 40 MG TAB PO SCH (10:00)
[2018-07-27] MEDS ORDERED: METOPROLOL SUCCINATE XL 50 MG TAB PO SCH (10:00)
[2018-07-27] MEDS ORDERED: ZINC SULFATE 220mg CAP or TAB PO SCH (10:00)
[2018-07-27] MEDS ORDERED: LOSARTAN POTASSIUM 50 MG TAB PO SCH (10:00)
[2018-07-27] MEDS: ASPIRIN-DIPYRIDAMOLE (25/200MG) CAPSULE PO SCH (10:40)
[2018-07-27] MEDS: ASCORBIC ACID 500 MG TAB PO SCH (10:42)
[2018-07-27] MEDS: hydrALAZINE HCL 25 MG TAB PO SCH (10:43)
[2018-07-27] MEDS ORDERED: TAMSULOSIN HYDROCHLORIDE 0.4 MG CAP PO ONE (10:45)
[2018-07-27] MEDS: NIFEdipine ER 30 MG TAB PO SCH (10:45)
[2018-07-27] MEDS: cloNIDine HCL 0.1 MG TAB PO SCH (10:46)
[2018-07-27 13:00] VITALS: BP 129/69
[2018-07-27] MEDS ORDERED: LEVOFLOXACIN 500 MG TAB PO ONE (14:00)
[2018-07-27] MEDS ORDERED: LEVO250T19 PO (14:13)
[2018-07-27] MEDS ORDERED: TAM04C PO (14:13)
[2018-07-27] MEDS ORDERED: INFLUENZA QUAD 2018-2019 0.5 ML SYRG IM ONE (15:15)
[2018-07-27] MEDS ORDERED: PNEUMOCOCCAL VACC POLYS 25 MCG/0.5 ML VIAL IM ONE (15:15)
[2018-07-27 16:45] VITALS: BP_SYST 125; BP_SYST 129; BP_DIAS 69; BP_DIAS 70
[2018-07-27] MEDS ORDERED: TAMSULOSIN HYDROCHLORIDE 0.4 MG CAP PO SCH (18:00)
== END 2018-07-27 18:00 | disposition home or self-care (01) | DRG 699 ==
LOC: ER 07:08 → TELE 12:25 → TELE-EAST 14:37
PROVIDERS: ADMIT Internal Medicine; ATTEND Internal Medicine
PROC: 0T9B30Z Drainage of Bladder with Drainage Device, Percutaneous Approach (ICD-10-PCS; principal; 2018-07-26)
DX: N13.9 Obstructive and reflux uropathy, unspecified (principal); I13.0 Hypertensive heart and chronic kidney disease with heart failure and stage 1 through stage 4 chronic kidney disease, or unspecified chronic kidney disease; I50.22 Chronic systolic (congestive) heart failure; N39.0 Urinary tract infection, site not specified; N18.3 Chronic kidney disease, stage 3 (moderate); J44.9 Chronic obstructive pulmonary disease, unspecified; E11.21 Type 2 diabetes mellitus with diabetic nephropathy; D63.8 Anemia in other chronic diseases classified elsewhere; E11.22 Type 2 diabetes mellitus with diabetic chronic kidney disease; E78.5 Hyperlipidemia, unspecified; M10.9 Gout, unspecified; Z82.49 Family history of ischemic heart disease and other diseases of the circulatory system; Z82.5 Family history of asthma and other chronic lower respiratory diseases; Z85.46 Personal history of malignant neoplasm of prostate; Z86.73 Personal history of transient ischemic attack (TIA), and cerebral infarction without residual deficits; K21.9 Gastro-esophageal reflux disease without esophagitis; Z23 Encounter for immunization
CPT/HCPCS: 36415; 51702; 80053; 81001; 85025; 87086; 90674; 94761; 96365; 96375; A6257; G0378; J0696; J2405

== ENCOUNTER 2018-11-02 18:52 | Emergency (ER) | payer OTHER ==
[~2018-11-02] VITALS: Ht 185.4 cm; Wt 127.0 kg
[~2018-11-02 18:52] MED LIST changes: -CIPR-187 PO; +LEVO250T19 PO; +TAM04C PO
[2018-11-02 19:00] VITALS: BP 157/87
== END 2018-11-02 22:05 | disposition left against medical advice (07) ==
LOC: ER 19:04
DX: R39.15 Urgency of urination (principal); Z53.21 Procedure and treatment not carried out due to patient leaving prior to being seen by health care provider

== ENCOUNTER 2018-11-03 08:32 | Emergency (ER) | payer OTHER ==
[~2018-11-03] VITALS: Ht 185.4 cm; Wt 127.0 kg
[2018-11-03] MEDS ORDERED: LIDOCAINE 2% JELLY 11ml (GLYDO) ONE ×2 (08:56→09:34)
[2018-11-03] MEDS ORDERED: LIDOCAINE 2% JELLY 11ml (GLYDO) UR ONE (10:00)
[2018-11-03] MEDS ORDERED: LIDOCAINE 1% HCL (LOCAL ANESTH.) INJ 20ML MDV ONE (11:44)
[2018-11-03] MEDS ORDERED: ONDANSETRON HCL 4 MG/2 ML VIAL IV ONE (12:15)
[2018-11-03] MEDS ORDERED: HYDROmorphone HCL 2 MG/ML VL IV ONE (12:15)
[2018-11-03] MEDS ORDERED: cefTRIAXone 1GM/50ML D5W 50 ML IV ONE (12:30)
[2018-11-03 13:23] VITALS: BP 153/85
== END 2018-11-03 13:29 | disposition home or self-care (01) ==
LOC: ER 08:32
DX: R33.9 Retention of urine, unspecified (principal); E78.5 Hyperlipidemia, unspecified; M10.9 Gout, unspecified; J44.9 Chronic obstructive pulmonary disease, unspecified; E11.22 Type 2 diabetes mellitus with diabetic chronic kidney disease; I13.0 Hypertensive heart and chronic kidney disease with heart failure and stage 1 through stage 4 chronic kidney disease, or unspecified chronic kidney disease; N18.9 Chronic kidney disease, unspecified; I50.9 Heart failure, unspecified; Z87.891 Personal history of nicotine dependence; Z79.82 Long term (current) use of aspirin; Z79.899 Other long term (current) drug therapy; Z86.73 Personal history of transient ischemic attack (TIA), and cerebral infarction without residual deficits
CPT/HCPCS: 51705; 96365; 96375; 99283; C2627; J0696; J1170; J2001; J2405; 51702

== ENCOUNTER 2018-11-18 08:33 | Emergency (ER) | payer OTHER ==
[~2018-11-18] VITALS: Ht 185.4 cm; Wt 127.0 kg
[2018-11-18 11:07] LABS: Urine Bacteria FEW /hpf (None Seen); Urine Blood Negative /uL (Negative); Urine Hyaline Cast FEW /lpf (0 - 2); Urine Specific Gravity 1.013 (1.001-1.035); Urine WBC 196 /hpf (0 - 3); Urine WBC Clumps PRESENT /hpf (None Seen)
[2018-11-18] MEDS ORDERED: HYDROcodone-ACET 10/325MG TAB PO ONE (12:00)
[2018-11-18] MEDS ORDERED: ONDANSETRON HCL 4 MG/2 ML VIAL IV ONE (12:30)
[2018-11-18] MEDS ORDERED: MORPHINE SULFATE 4 MG/ML SYR/VIAL IV ONE (12:30)
[2018-11-18] MEDS ORDERED: CARISOPRODOL 350 MG TAB PO ONE (12:30)
[2018-11-18] MEDS ORDERED: LIDOCAINE 2% (LOCAL ANESTH.) PF 5ml SDV ONE ×2 (16:00→16:27)
[2018-11-18] MEDS ORDERED: HYDROmorphone HCL 2 MG/ML VL ONE (16:08)
[2018-11-18] MEDS ORDERED: cefTRIAXone SOD 1,000 MG VL ONE (16:27)
[2018-11-18 17:00] VITALS: BP 109/60
[2018-11-18] MEDS ORDERED: cefTRIAXone SOD 1,000 MG VL IV ONE (17:30)
[2018-11-18] MEDS ORDERED: LIDOCAINE 2%HCL (LOCAL ANESTH.) INJ 10ml MDV IJ ONE (17:30)
[2018-11-18] MEDS ORDERED: HYDROmorphone HCL 2 MG/ML VL IV ONE (17:30)
== END 2018-11-18 20:59 | disposition home or self-care (01) ==
LOC: ER 08:42
DX: R33.9 Retention of urine, unspecified (principal); I10 Essential (primary) hypertension; E11.22 Type 2 diabetes mellitus with diabetic chronic kidney disease; I13.0 Hypertensive heart and chronic kidney disease with heart failure and stage 1 through stage 4 chronic kidney disease, or unspecified chronic kidney disease; N18.9 Chronic kidney disease, unspecified; I50.9 Heart failure, unspecified; J44.9 Chronic obstructive pulmonary disease, unspecified; E78.5 Hyperlipidemia, unspecified; Z86.73 Personal history of transient ischemic attack (TIA), and cerebral infarction without residual deficits; Z87.440 Personal history of urinary (tract) infections; Z87.891 Personal history of nicotine dependence; Z79.899 Other long term (current) drug therapy
CPT/HCPCS: 51705; 81001; 96374; 96375; 99284; C2627; J2001; J2270; J2405; 51702; J0696

== ENCOUNTER 2019-02-07 06:09 | Emergency (ER) | payer OTHER ==
[~2019-02-07] VITALS: Ht 185.4 cm; Wt 129.3 kg
[2019-02-07] MEDS ORDERED: cloNIDine HCL 0.1 MG TAB PO ONE ×2 (06:30→09:00)
[2019-02-07] MEDS ORDERED: PROMETHAZINE HCL 25 MG/ML 1ML IV ONE (07:45)
[2019-02-07] MEDS ORDERED: HYDROmorphone HCL 2 MG/ML VL IV ONE (07:45)
[2019-02-07] MEDS ORDERED: LIDOCAINE 2% JELLY 11ml (GLYDO) UR ONE (08:30)
[2019-02-07 09:40] LABS: Urine Bacteria FEW /hpf (None Seen); Urine Blood 2+ /uL (Negative); Urine Specific Gravity 1.014 (1.001-1.035); Urine WBC 71 /hpf (0 - 3); Urine WBC Clumps PRESENT /hpf (None Seen)
[2019-02-07] MEDS ORDERED: hydrALAZINE HCL 20 MG/ML VL IV ONE (10:15)
[2019-02-07 11:32] VITALS: BP 156/94
== END 2019-02-07 12:01 | disposition home or self-care (01) ==
LOC: ER 06:09
DX: R33.9 Retention of urine, unspecified (principal); J44.9 Chronic obstructive pulmonary disease, unspecified; M10.9 Gout, unspecified; E78.5 Hyperlipidemia, unspecified; E11.22 Type 2 diabetes mellitus with diabetic chronic kidney disease; I13.0 Hypertensive heart and chronic kidney disease with heart failure and stage 1 through stage 4 chronic kidney disease, or unspecified chronic kidney disease; N18.9 Chronic kidney disease, unspecified; I50.9 Heart failure, unspecified; Z79.82 Long term (current) use of aspirin; Z79.899 Other long term (current) drug therapy; Z86.73 Personal history of transient ischemic attack (TIA), and cerebral infarction without residual deficits
CPT/HCPCS: 81001; 96374; 96375; 99284; J0360; J1170; J2550

== ENCOUNTER 2020-09-01 15:59 | Inpatient (IN) | payer OTHER ==
[~2020-09-01] VITALS: Ht 188 cm; Wt 128.3 kg
[~2020-09-01 15:59] MED LIST changes: +ASPI-543 PO; -ASPI81TA27 PO; -HYDR-4683 PO; +HYDR-4833 PO; -LOSA-49 PO; -METO-169 PO; +METO-289 PO; +NIFE1TAB30 PO; -NIFE60TA59 PO
[2020-09-01 16:45] LABS: Basophils # (auto) 0 10 ^3/uL (0-0.2); Basophils % (auto) 0.3 % (0.0-2.0); Eosinophils # (auto) 0 10 ^3/uL (0-0.8); Hematocrit 40.9 % (41.0-53.0); Hemoglobin 13.5 g/dL (13.5-17.5); Lymphocytes # (auto) 0.9 10 ^3/uL (0.4-5.4); Lymphocytes % (auto) 12.8 % (10.0-50.0); Mean Corpuscular Hemoglobin 30.4 pg (28.0-32.0); Mean Corpuscular Volume 92.2 fL (80.0-100.0); Monocytes # (auto) 0.5 10 ^3/uL (0-1.3); Monocytes % (auto) 6.8 % (0.0-12.0); Neutrophils # (auto) 5.9 10 ^3/uL (1.6-8.6); Neutrophils % (auto) 80.1 % (37.0-80.0); Nucleated Red Blood Cells % 0.1 %; Red Blood Cells 4.43 10^6/uL (4.5-5.90); Red Cell Distribution Width 14.2 % (11.8-14.3); White Blood Cell 7.3 10^3/uL (4.4-10.8)
[2020-09-01 16:57] LABS: Partial Thromboplastin Time 32.3 sec (23.0-31.2)
[2020-09-01 17:01] LABS: Calcium 8.6 mg/dL (8.5-10.1); Magnesium 2.4 mg/dL (1.6-2.6); Potassium 3.9 mmol/L (3.5-5.1)
[2020-09-01 17:03] LABS: BUN/Creatinine Ratio 15.1
[2020-09-01 17:08] LABS: Bilirubin, Total 0.8 mg/dL (0.2-1.0); Total Protein 8.5 g/dL (6.4-8.2)
[2020-09-01] MEDS ORDERED: ACETAMINOPHEN 325 MG TAB PO ONE (18:15)
[2020-09-01] MEDS ORDERED: AZITHROMYCIN 500MG/ 250ML 250 ML IV ONE (20:15)
[2020-09-01] MEDS ORDERED: DexAMETHasone SOD PHOS 10MG/1ML VIAL INJ IV ONE (20:15)
[2020-09-01] MEDS ORDERED: ACETAMINOPHEN 500 MG TAB PO PRN (20:45)
[2020-09-01] MEDS: BUDESONIDE (INHALATION) 180 MCG IH IN SCH (22:00)
[2020-09-01] MEDS: cloNIDine HCL 0.1 MG TAB PO SCH (22:00)
[2020-09-01] MEDS: ATORVASTATIN 20 MG TAB PO SCH (22:00)
[2020-09-01] MEDS: METOPROLOL TARTRATE 50 MG TAB PO SCH (22:00)
[2020-09-01] MEDS: hydrALAZINE HCL 25 MG TAB PO SCH (22:00)
[2020-09-01] MEDS ORDERED: NITROGLYCERIN 0.4 MG SL TAB SL PRN (22:15)
[2020-09-01] MEDS ORDERED: MORPHINE SULFATE INJECTION 2 MG/ML SYRG IV PRN (22:15)
[2020-09-01 22:48] LABS: CRP High Sensitivity 18.2 mg/dL (< 0.3)
[2020-09-01 22:50] LABS: INR 1.01 (0.9-1.15); Partial Thromboplastin Time 24.1 sec (23.0-31.2)
[2020-09-02 05:14] LABS: Basophils # (auto) 0 10 ^3/uL (0-0.2); Basophils % (auto) 0.2 % (0.0-2.0); Eosinophils # (auto) 0 10 ^3/uL (0-0.8); Hematocrit 42.1 % (41.0-53.0); Hemoglobin 13.3 g/dL (13.5-17.5); Lymphocytes # (auto) 0.3 10 ^3/uL (0.4-5.4); Lymphocytes % (auto) 5.9 % (10.0-50.0); Mean Corpuscular Hemoglobin 29.8 pg (28.0-32.0); Mean Corpuscular Hgb Conc. 31.6 g/dL (32.0-36.0); Mean Corpuscular Volume 94.2 fL (80.0-100.0); Monocytes # (auto) 0.2 10 ^3/uL (0-1.3); Monocytes % (auto) 4.5 % (0.0-12.0); Neutrophils # (auto) 4.6 10 ^3/uL (1.6-8.6); Neutrophils % (auto) 89.4 % (37.0-80.0); Nucleated Red Blood Cells % 0.1 %; Red Blood Cells 4.47 10^6/uL (4.5-5.90); Red Cell Distribution Width 14.5 % (11.8-14.3); White Blood Cell 5.2 10^3/uL (4.4-10.8)
[2020-09-02 05:31] LABS: Albumin 2.8 g/dL (3.4-5.0); Potassium 4.4 mmol/L (3.5-5.1)
[2020-09-02 05:37] LABS: Bilirubin, Total 0.6 mg/dL (0.2-1.0); Total Protein 8.5 g/dL (6.4-8.2)
[2020-09-02] MEDS: ENOXAPARIN SOD 40 MG/0.4 ML SYRINGE SC SCH (09:12)
[2020-09-02] MEDS: CHOLECALCIFEROL (VITD3) 2,000 UNIT CAP/TAB PO SCH (09:12)
[2020-09-02] MEDS: ZINC SULFATE 220mg CAP or TAB PO SCH (09:13)
[2020-09-02] MEDS: PANTOPRAZOLE 40 MG TAB PO SCH (09:13)
[2020-09-02] MEDS: ASCORBIC ACID 1,000 MG TAB PO SCH (09:13)
[2020-09-02] MEDS: ASPirin 81 mg TAB PO SCH (09:14)
[2020-09-02] MEDS: hydrALAZINE HCL 25 MG TAB PO SCH ×2 (09:19→21:09)
[2020-09-02] MEDS: cloNIDine HCL 0.1 MG TAB PO SCH ×2 (09:19→21:11)
[2020-09-02] MEDS: METOPROLOL TARTRATE 50 MG TAB PO SCH ×2 (09:20→21:11)
[2020-09-02] MEDS: DexAMETHasone SOD PHOS 10MG/1ML VIAL INJ IV SCH (09:21)
[2020-09-02] MEDS: BUDESONIDE (INHALATION) 180 MCG IH IN SCH ×2 (10:00→22:40)
[2020-09-02] MEDS ORDERED: NIFEdipine ER 30 MG TAB PO SCH (10:00)
[2020-09-02] MEDS ORDERED: FUROSEMIDE 40 MG TAB PO SCH (10:00)
[2020-09-02] MEDS: NIFEdipine ER 30 MG TAB PO SCH (14:40)
[2020-09-02] MEDS: SODIUM CHLORIDE 0.9% 1,000 ML IV SCH (16:57)
[2020-09-02] MEDS: TAMSULOSIN HYDROCHLORIDE 0.4 MG CAP PO SCH (18:00)
[2020-09-02] MEDS: AZITHROMYCIN 500MG/ 250ML 250 ML IV SCH (21:09)
[2020-09-02] MEDS: ATORVASTATIN 20 MG TAB PO SCH (21:11)
[2020-09-02] MEDS: ALBUTEROL SULF HFA 90MCG INH 200DOSE IN PRN (22:51)
[2020-09-03] VITALS: BP 134/88
[2020-09-03 00:30] VITALS: BP 134/88
[2020-09-03] MEDS: SODIUM CHLORIDE 0.9% 1,000 ML IV SCH ×2 (02:43→15:55)
[2020-09-03 07:11] LABS: Urine Bacteria MANY /hpf (None Seen); Urine Blood TRACE /uL (Negative); Urine Specific Gravity 1.013 (1.001-1.035); Urine WBC 68 /hpf (0 - 3)
[2020-09-03 07:16] LABS: Creatinine, Urine 109 mg/dL (30.0-125.0); Protein, Urine 71.8 mg/dL (0.0-11.9); Sodium Urine 34 mmol/L (40-220)
[2020-09-03 08:00] VITALS: BP 146/89
[2020-09-03 08:09] LABS: BUN/Creatinine Ratio 21.9; Calcium 8.7 mg/dL (8.5-10.1); Potassium 4.6 mmol/L (3.5-5.1)
[2020-09-03 08:17] LABS: CRP High Sensitivity 12.3 mg/dL (< 0.3)
[2020-09-03] MEDS: ALBUTEROL SULF HFA 90MCG INH 200DOSE IN PRN ×2 (08:17→19:46)
[2020-09-03] MEDS: BUDESONIDE (INHALATION) 180 MCG IH IN SCH ×2 (08:17→19:46)
[2020-09-03 08:45] LABS: Basophils # (auto) 0 10 ^3/uL (0-0.2); Basophils % (auto) 0.1 % (0.0-2.0); Eosinophils # (auto) 0 10 ^3/uL (0-0.8); Hematocrit 40.7 % (41.0-53.0); Lymphocytes # (auto) 0.4 10 ^3/uL (0.4-5.4); Lymphocytes % (auto) 3.9 % (10.0-50.0); Mean Corpuscular Hemoglobin 29.7 pg (28.0-32.0); Mean Corpuscular Hgb Conc. 31.9 g/dL (32.0-36.0); Mean Corpuscular Volume 93.1 fL (80.0-100.0); Monocytes # (auto) 0.8 10 ^3/uL (0-1.3); Monocytes % (auto) 7.7 % (0.0-12.0); Neutrophils # (auto) 9.3 10 ^3/uL (1.6-8.6); Neutrophils % (auto) 88.3 % (37.0-80.0); Nucleated Red Blood Cells % 0.1 %; Red Blood Cells 4.38 10^6/uL (4.5-5.90); White Blood Cell 10.5 10^3/uL (4.4-10.8)
[2020-09-03] MEDS: DexAMETHasone SOD PHOS 10MG/1ML VIAL INJ IV SCH (09:53)
[2020-09-03] MEDS: ASPirin 81 mg TAB PO SCH (09:53)
[2020-09-03] MEDS: ENOXAPARIN SOD 40 MG/0.4 ML SYRINGE SC SCH (09:53)
[2020-09-03] MEDS: ASCORBIC ACID 1,000 MG TAB PO SCH (09:54)
[2020-09-03] MEDS: ZINC SULFATE 220mg CAP or TAB PO SCH (09:54)
[2020-09-03] MEDS: PANTOPRAZOLE 40 MG TAB PO SCH (09:54)
[2020-09-03] MEDS: CHOLECALCIFEROL (VITD3) 2,000 UNIT CAP/TAB PO SCH (09:54)
[2020-09-03] MEDS: hydrALAZINE HCL 25 MG TAB PO SCH ×2 (10:00→23:59)
[2020-09-03] MEDS: NIFEdipine ER 30 MG TAB PO SCH (10:00)
[2020-09-03] MEDS: cloNIDine HCL 0.1 MG TAB PO SCH (10:01)
[2020-09-03] MEDS: METOPROLOL TARTRATE 50 MG TAB PO SCH (10:01)
[2020-09-03 16:00] VITALS: BP 135/62
[2020-09-03] MEDS: TAMSULOSIN HYDROCHLORIDE 0.4 MG CAP PO SCH (17:33)
[2020-09-03] MEDS: AZITHROMYCIN 500MG/ 250ML 250 ML IV SCH (21:26)
[2020-09-04] VITALS: BP 158/98
[2020-09-04] MEDS: SODIUM CHLORIDE 0.9% 1,000 ML IV SCH ×2 (06:58→21:14)
[2020-09-04 07:16] LABS: Basophils # (auto) 0.3 10 ^3/uL (0-0.2); Basophils % (auto) 3.2 % (0.0-2.0); Eosinophils # (auto) 0 10 ^3/uL (0-0.8); Hematocrit 36.8 % (41.0-53.0); Hemoglobin 11.8 g/dL (13.5-17.5); Lymphocytes # (auto) 0.6 10 ^3/uL (0.4-5.4); Lymphocytes % (auto) 6.2 % (10.0-50.0); Mean Corpuscular Hemoglobin 29.3 pg (28.0-32.0); Mean Corpuscular Volume 91.3 fL (80.0-100.0); Monocytes # (auto) 0.8 10 ^3/uL (0-1.3); Monocytes % (auto) 8.3 % (0.0-12.0); Neutrophils # (auto) 8.3 10 ^3/uL (1.6-8.6); Neutrophils % (auto) 82.3 % (37.0-80.0); Nucleated Red Blood Cells % 0.2 %; Red Blood Cells 4.03 10^6/uL (4.5-5.90); White Blood Cell 10.1 10^3/uL (4.4-10.8)
[2020-09-04] MEDS: ALBUTEROL SULF HFA 90MCG INH 200DOSE IN PRN ×2 (07:19→21:10)
[2020-09-04] MEDS: BUDESONIDE (INHALATION) 180 MCG IH IN SCH ×2 (07:19→21:10)
[2020-09-04 08:00] VITALS: BP 162/76
[2020-09-04 08:04] LABS: Calcium 8.8 mg/dL (8.5-10.1); Potassium 4.9 mmol/L (3.5-5.1)
[2020-09-04 08:33] LABS: CRP High Sensitivity 5.61 mg/dL (< 0.3)
[2020-09-04] MEDS: hydrALAZINE HCL 25 MG TAB PO SCH ×2 (10:00→23:04)
[2020-09-04] MEDS: NIFEdipine ER 30 MG TAB PO SCH (10:00)
[2020-09-04] MEDS: CHOLECALCIFEROL (VITD3) 2,000 UNIT CAP/TAB PO SCH (10:00)
[2020-09-04] MEDS: ZINC SULFATE 220mg CAP or TAB PO SCH (10:43)
[2020-09-04] MEDS: ASCORBIC ACID 1,000 MG TAB PO SCH (10:43)
[2020-09-04] MEDS: METOPROLOL TARTRATE 50 MG TAB PO SCH ×3 (10:43→21:29)
[2020-09-04] MEDS: PANTOPRAZOLE 40 MG TAB PO SCH (10:43)
[2020-09-04] MEDS: ASPirin 81 mg TAB PO SCH (10:43)
[2020-09-04] MEDS: cloNIDine HCL 0.1 MG TAB PO SCH ×3 (10:44→23:05)
[2020-09-04] MEDS: ENOXAPARIN SOD 40 MG/0.4 ML SYRINGE SC SCH (10:44)
[2020-09-04] MEDS: DexAMETHasone SOD PHOS 10MG/1ML VIAL INJ IV SCH (10:44)
[2020-09-04 16:00] VITALS: BP 137/66
[2020-09-04] MEDS: TAMSULOSIN HYDROCHLORIDE 0.4 MG CAP PO SCH (18:23)
[2020-09-04] MEDS ORDERED: IPRIH INH (19:25)
[2020-09-04] MEDS ORDERED: DOXY-338 PO (19:25)
[2020-09-04] MEDS ORDERED: DEXA6TAB6 PO (19:25)
[2020-09-04] MEDS: AZITHROMYCIN 500MG/ 250ML 250 ML IV SCH (21:14)
[2020-09-04] MEDS: ATORVASTATIN 20 MG TAB PO SCH ×2 (22:02)
[2020-09-05] VITALS: BP 154/86
[2020-09-05 03:35] VITALS: BP 141/86
[2020-09-05 08:00] VITALS: BP 148/82
== END 2020-09-05 10:00 | disposition home health service (06) | DRG 177 ==
LOC: EDBD 15:59 → ER 16:04 → TELE 16:05 → TELE-WESTW 09-02 22:05
PROVIDERS: ADMIT Nurse Practitioner; ATTEND Internal Medicine
DX: U07.1 COVID-19 (principal); J96.01 Acute respiratory failure with hypoxia; N17.0 Acute kidney failure with tubular necrosis; J12.89 Other viral pneumonia; J15.9 Unspecified bacterial pneumonia; N18.4 Chronic kidney disease, stage 4 (severe); E44.0 Moderate protein-calorie malnutrition; I50.22 Chronic systolic (congestive) heart failure; I13.0 Hypertensive heart and chronic kidney disease with heart failure and stage 1 through stage 4 chronic kidney disease, or unspecified chronic kidney disease; J44.0 Chronic obstructive pulmonary disease with (acute) lower respiratory infection; E11.22 Type 2 diabetes mellitus with diabetic chronic kidney disease; E78.5 Hyperlipidemia, unspecified; K21.9 Gastro-esophageal reflux disease without esophagitis; E66.9 Obesity, unspecified; N35.919 Unspecified urethral stricture, male, unspecified site; N13.9 Obstructive and reflux uropathy, unspecified; C61 Malignant neoplasm of prostate; M10.9 Gout, unspecified; I25.10 Atherosclerotic heart disease of native coronary artery without angina pectoris; N32.0 Bladder-neck obstruction; N40.0 Benign prostatic hyperplasia without lower urinary tract symptoms; Z79.51 Long term (current) use of inhaled steroids; Z79.899 Other long term (current) drug therapy; Z82.49 Family history of ischemic heart disease and other diseases of the circulatory system; Z82.5 Family history of asthma and other chronic lower respiratory diseases; Z85.46 Personal history of malignant neoplasm of prostate; Z68.34 Body mass index [BMI] 34.0-34.9, adult; Z86.73 Personal history of transient ischemic attack (TIA), and cerebral infarction without residual deficits; Z93.59 Other cystostomy status; Z79.84 Long term (current) use of oral hypoglycemic drugs; Z95.818 Presence of other cardiac implants and grafts; Z87.891 Personal history of nicotine dependence; Z80.9 Family history of malignant neoplasm, unspecified; Z79.01 Long term (current) use of anticoagulants; Z79.891 Long term (current) use of opiate analgesic
CPT/HCPCS: 36415; 71045; 76775; 80048; 80053; 81001; 82570; 82728; 83036; 83605; 83615; 83735; 83880; 84156; 84300; 84443; 84484; 85025; 85379; 85610; 85730; 86141; 87040; 87426; 93005; 93970; 94640; 96361; 96365; 96366; 96367; 96372; 96375; G0378; J1100

== ENCOUNTER 2021-06-27 12:16 | Emergency (ER) | payer OTHER ==
[~2021-06-27] VITALS: Ht 15.2 cm; Wt 121.6 kg
[~2021-06-27 12:16] MED LIST changes: -ASPI-543 PO; +DEXA6TAB6 PO; +DOXY-338 PO; -FURO40TA4 PO; +IPRIH INH; -LEVO250T19 PO
[2021-06-27] MEDS ORDERED: LIDOCAINE 2% JELLY 11ml (GLYDO) UR ONE (16:45)
[2021-06-27 18:00] VITALS: BP 141/79
== END 2021-06-27 18:16 | disposition home or self-care (01) ==
LOC: ER 12:16
DX: R33.9 Retention of urine, unspecified (principal); I25.10 Atherosclerotic heart disease of native coronary artery without angina pectoris; K21.9 Gastro-esophageal reflux disease without esophagitis; M10.9 Gout, unspecified; I13.0 Hypertensive heart and chronic kidney disease with heart failure and stage 1 through stage 4 chronic kidney disease, or unspecified chronic kidney disease; N18.9 Chronic kidney disease, unspecified; I50.9 Heart failure, unspecified; J44.9 Chronic obstructive pulmonary disease, unspecified; E78.5 Hyperlipidemia, unspecified; Z87.891 Personal history of nicotine dependence; Z79.2 Long term (current) use of antibiotics; Z79.82 Long term (current) use of aspirin; Z79.899 Other long term (current) drug therapy

== ENCOUNTER 2021-06-28 07:55 | Emergency (ER) | payer OTHER ==
[~2021-06-28] VITALS: Ht 185.4 cm; Wt 121.6 kg
[2021-06-28] MEDS ORDERED: fentaNYL CITRATE 100 MCG/2 ML VL IV ONE (08:15)
[2021-06-28] MEDS ORDERED: MIDAZOLAM HCL 5 MG/ML-1ML VIAL IV ONE (08:15)
[2021-06-28] MEDS ORDERED: LIDOCAINE 2%HCL (LOCAL ANESTH.) INJ 20ML MDV ONE (09:26)
[2021-06-28] MEDS ORDERED: SODIUM CHLORIDE 0.9% 1,000 ML IV ONE (10:15)
[2021-06-28 11:06] LABS: Basophils # (auto) 0 10 ^3/uL (0-0.2); Eosinophils # (auto) 0.1 10 ^3/uL (0-0.8); Eosinophils % (auto) 2.4 % (0.0-7.0); Hematocrit 37.5 % (41.0-53.0); Hemoglobin 11.8 g/dL (13.5-17.5); Lymphocytes % (auto) 21.3 % (10.0-50.0); Mean Corpuscular Hemoglobin 28.8 pg (28.0-32.0); Mean Corpuscular Hgb Conc. 31.5 g/dL (32.0-36.0); Mean Corpuscular Volume 91.4 fL (80.0-100.0); Monocytes # (auto) 0.5 10 ^3/uL (0-1.3); Monocytes % (auto) 10.5 % (0.0-12.0); Neutrophils % (auto) 64.8 % (37.0-80.0); Nucleated Red Blood Cells % 0.1 %; Red Cell Distribution Width 13.9 % (11.8-14.3); White Blood Cell 4.7 10^3/uL (4.4-10.8)
[2021-06-28 11:25] LABS: INR 1.05 (0.9-1.15); Partial Thromboplastin Time 27.7 sec (23.6-33.0)
[2021-06-28 11:49] LABS: Albumin 2.9 g/dL (3.4-5.0); Anion Gap 3 (5-15); Blood Urea Nitrogen 53 mg/dL (7-18); Calcium 8.5 mg/dL (8.5-10.1); Carbon Dioxide 27 mmol/L (21-32); Chloride 112 mmol/L (98-107); Glucose 159 mg/dL (74-106); Potassium 4.7 mmol/L (3.5-5.1); Sodium 142 mmol/L (136-145)
[2021-06-28 11:55] LABS: Alanine Aminotransferase 18 U/L (16-61); Alkaline Phosphatase 61 U/L (45-117); Aspartate Aminotransferase 18 U/L (15-37); BUN/Creatinine Ratio 14.2; Bilirubin, Total 0.3 mg/dL (0.2-1.0); GFR African American 20 mL/min; GFR Non-African American 17 mL/min; Total Protein 6.6 g/dL (6.4-8.2)
[2021-06-28] MEDS ORDERED: HYDROcodone-ACET 10/325MG TAB PO ONE (14:15)
[2021-06-28 16:15] VITALS: BP 157/77
== END 2021-06-28 17:28 | disposition home or self-care (01) ==
LOC: ER 07:55
DX: R33.9 Retention of urine, unspecified (principal); R31.9 Hematuria, unspecified; I13.0 Hypertensive heart and chronic kidney disease with heart failure and stage 1 through stage 4 chronic kidney disease, or unspecified chronic kidney disease; N18.9 Chronic kidney disease, unspecified; I50.9 Heart failure, unspecified; I25.10 Atherosclerotic heart disease of native coronary artery without angina pectoris; J44.9 Chronic obstructive pulmonary disease, unspecified; K21.9 Gastro-esophageal reflux disease without esophagitis; M10.9 Gout, unspecified; E78.5 Hyperlipidemia, unspecified; Z87.891 Personal history of nicotine dependence; Z79.82 Long term (current) use of aspirin; Z79.2 Long term (current) use of antibiotics; Z79.899 Other long term (current) drug therapy
CPT/HCPCS: 36415; 51705; 71045; 76942; 80053; 83880; 84484; 85025; 85610; 85730; 96361; 96374; 99285; J2250; J3010; J7030; 51702

== ENCOUNTER 2022-08-30 19:41 | Emergency (ER) | payer OTHER ==
[~2022-08-30] VITALS: Ht 186.7 cm; Wt 127.5 kg
[2022-08-30] MEDS ORDERED: cloNIDine HCL 0.1 MG TAB PO ONE (20:30)
[2022-08-30 21:17] LABS: Basophils # (auto) 0.1 10 ^3/uL (0-0.2); Eosinophils # (auto) 0.4 10 ^3/uL (0-0.8); Eosinophils % (auto) 5.1 % (0.0-7.0); Hematocrit 37.2 % (41.0-53.0); Hemoglobin 11.9 g/dL (13.5-17.5); Lymphocytes # (auto) 1.3 10 ^3/uL (0.4-5.4); Lymphocytes % (auto) 19.1 % (10.0-50.0); Mean Corpuscular Hemoglobin 29.5 pg (28.0-32.0); Mean Corpuscular Hgb Conc. 32.1 g/dL (32.0-36.0); Mean Corpuscular Volume 91.9 fL (80.0-100.0); Monocytes # (auto) 0.7 10 ^3/uL (0-1.3); Monocytes % (auto) 10.2 % (0.0-12.0); Neutrophils # (auto) 4.4 10 ^3/uL (1.6-8.6); Neutrophils % (auto) 64.6 % (37.0-80.0); Nucleated Red Blood Cells % 0.1 %; Red Blood Cells 4.04 10^6/uL (4.5-5.90); Red Cell Distribution Width 13.6 % (11.8-14.3); White Blood Cell 6.9 10^3/uL (4.4-10.8)
[2022-08-30 21:42] LABS: BUN/Creatinine Ratio 14.2; Potassium 4.1 mmol/L (3.5-5.1)
[2022-08-30 21:43] LABS: Albumin 3.2 g/dL (3.4-5.0); Bilirubin, Total 0.3 mg/dL (0.2-1.0); Calcium 8.8 mg/dL (8.5-10.1); Total Protein 6.5 g/dL (6.4-8.2)
[2022-08-31 01:09] VITALS: BP 126/71
== END 2022-08-31 01:22 | disposition home or self-care (01) ==
LOC: ER 19:41
DX: I16.0 Hypertensive urgency (principal); J44.9 Chronic obstructive pulmonary disease, unspecified; I13.0 Hypertensive heart and chronic kidney disease with heart failure and stage 1 through stage 4 chronic kidney disease, or unspecified chronic kidney disease; N18.9 Chronic kidney disease, unspecified; I50.9 Heart failure, unspecified; K21.9 Gastro-esophageal reflux disease without esophagitis; E78.5 Hyperlipidemia, unspecified; R42 Dizziness and giddiness; Z87.891 Personal history of nicotine dependence
CPT/HCPCS: 36415; 70450; 71045; 80053; 83880; 84484; 85025; 93005; 99291

== ENCOUNTER 2022-12-04 17:52 | Inpatient (IN) | payer OTHER ==
[~2022-12-04] VITALS: Ht 177.8 cm; Wt 109.5 kg
[2022-12-04 19:00] LABS: Basophils # (auto) 0.1 10 ^3/uL (0-0.2); Basophils % (auto) 0.7 % (0.0-2.0); Eosinophils # (auto) 0.5 10 ^3/uL (0-0.8); Eosinophils % (auto) 4.5 % (0.0-7.0); Hematocrit 35.8 % (41.0-53.0); Hemoglobin 11.1 g/dL (13.5-17.5); Lymphocytes # (auto) 1.7 10 ^3/uL (0.4-5.4); Lymphocytes % (auto) 15.7 % (10.0-50.0); Mean Corpuscular Hemoglobin 29.5 pg (28.0-32.0); Mean Corpuscular Volume 95.4 fL (80.0-100.0); Neutrophils # (auto) 7.8 10 ^3/uL (1.6-8.6); Neutrophils % (auto) 70.1 % (37.0-80.0); Nucleated Red Blood Cells % 0.1 %; Red Blood Cells 3.76 10^6/uL (4.5-5.90); Red Cell Distribution Width 16.6 % (11.8-14.3); White Blood Cell 11.1 10^3/uL (4.4-10.8)
[2022-12-04 19:14] LABS: Albumin 3.1 g/dL (3.4-5.0); Calcium 9.4 mg/dL (8.5-10.1); Magnesium 2.8 mg/dL (1.6-2.6)
[2022-12-04 19:19] LABS: BUN/Creatinine Ratio 6.9 (10.0-20.0); Bilirubin, Total 0.3 mg/dL (0.2-1.0); Total Protein 8.4 g/dL (6.4-8.2)
[2022-12-05] MEDS ORDERED: NITROGLYCERIN 0.4 MG SL TAB SL PRN (00:45)
[2022-12-05] MEDS ORDERED: HYDROcodone-ACET 5/325MG TAB PO PRN (00:45)
[2022-12-05] MEDS ORDERED: ACETAMINOPHEN 325 MG TAB PO PRN (00:45)
[2022-12-05] MEDS ORDERED: ONDANSETRON HCL 4 MG/2 ML VIAL IV PRN (00:45)
[2022-12-05] MEDS ORDERED: cefTRIAXone 1GM/50ML D5W 50 ML IV ONE (00:45)
[2022-12-05] MEDS ORDERED: MORPHINE SULFATE INJ 2 MG/ml SYRG IV PRN (00:45)
[2022-12-05] MEDS ORDERED: DOCUSATE SOD 100 MG CAP PO PRN (00:45)
[2022-12-05] MEDS ORDERED: METO25TA5 PO (04:03)
[2022-12-05] MEDS ORDERED: SEVE800T8 PO (04:03)
[2022-12-05] MEDS ORDERED: PANT40TA2 PO (04:03)
[2022-12-05] MEDS ORDERED: APIX2.5T PO (04:03)
[2022-12-05] MEDS ORDERED: ATOR10TA52 PO (04:03)
[2022-12-05 04:24] LABS: Basophils # (auto) 0.1 10 ^3/uL (0-0.2); Basophils % (auto) 1.2 % (0.0-2.0); Eosinophils # (auto) 0.5 10 ^3/uL (0-0.8); Eosinophils % (auto) 4.8 % (0.0-7.0); Hematocrit 31.6 % (41.0-53.0); Hemoglobin 9.9 g/dL (13.5-17.5); Lymphocytes # (auto) 1.7 10 ^3/uL (0.4-5.4); Lymphocytes % (auto) 18.1 % (10.0-50.0); Mean Corpuscular Hemoglobin 29.9 pg (28.0-32.0); Mean Corpuscular Hgb Conc. 31.5 g/dL (32.0-36.0); Mean Corpuscular Volume 95.1 fL (80.0-100.0); Monocytes # (auto) 0.8 10 ^3/uL (0-1.3); Monocytes % (auto) 8.7 % (0.0-12.0); Neutrophils # (auto) 6.5 10 ^3/uL (1.6-8.6); Neutrophils % (auto) 67.2 % (37.0-80.0); Nucleated Red Blood Cells % 0.1 %; Red Blood Cells 3.33 10^6/uL (4.5-5.90); Red Cell Distribution Width 16.6 % (11.8-14.3); White Blood Cell 9.6 10^3/uL (4.4-10.8)
[2022-12-05 04:41] LABS: Albumin 2.8 g/dL (3.4-5.0); Calcium 9.2 mg/dL (8.5-10.1); Magnesium 2.3 mg/dL (1.6-2.6); Potassium 3.7 mmol/L (3.5-5.1)
[2022-12-05 04:43] LABS: BUN/Creatinine Ratio 7.4 (10.0-20.0)
[2022-12-05 04:45] LABS: Bilirubin, Total 0.4 mg/dL (0.2-1.0); Total Protein 7.2 g/dL (6.4-8.2)
[2022-12-05] MEDS: SODIUM CHLOR 0.9% PF (SALINE LOCK) 10ML VIAL/SYR IV SCH ×3 (06:09→21:07)
[2022-12-05] MEDS: SEVELAMER 800 MG TAB PO SCH ×3 (08:22→18:18)
[2022-12-05] MEDS: B-COMPLEX W/ C & FOLIC ACID(NEPHROVITE TAB) PO SCH (09:48)
[2022-12-05] MEDS: FAMOTIDINE (10MG/ML) 2ML VL IV SCH ×2 (09:48→21:07)
[2022-12-05] MEDS: ASPirin 81 mg TAB PO SCH (09:48)
[2022-12-05 13:23] VITALS: BP 107/78
[2022-12-05 16:53] VITALS: BP 120/67
[2022-12-05] MEDS: cefTRIAXone 1GM/50ML D5W 50 ML IV SCH (21:07)
[2022-12-05] MEDS: ATORVASTATIN 20 MG TAB PO SCH (21:16)
[2022-12-05] MEDS ORDERED: LORazepam 2MG/ML-1ML VIAL IV PRN (21:45)
[2022-12-05 22:00] VITALS: BP 121/78
[2022-12-05 22:13] LABS: Cholesterol 105 mg/dL (< 200)
[2022-12-05 22:16] LABS: HDL Cholesterol 44 mg/dL (40-59); LDL Cholesterol 52 mg/dL (< 100); Triglycerides 138 mg/dL (< 150)
[2022-12-06] VITALS (7 sets, daily range): BP systolic 123–137; BP diastolic 68–85
[2022-12-06] MEDS: SODIUM CHLOR 0.9% PF (SALINE LOCK) 10ML VIAL/SYR IV SCH ×3 (05:14→22:27)
[2022-12-06 06:41] LABS: Basophils # (auto) 0.1 10 ^3/uL (0-0.2); Basophils % (auto) 0.9 % (0.0-2.0); Eosinophils # (auto) 0.5 10 ^3/uL (0-0.8); Eosinophils % (auto) 6.2 % (0.0-7.0); Hematocrit 27.7 % (41.0-53.0); Lymphocytes # (auto) 1.3 10 ^3/uL (0.4-5.4); Lymphocytes % (auto) 16.8 % (10.0-50.0); Mean Corpuscular Hemoglobin 30.8 pg (28.0-32.0); Mean Corpuscular Hgb Conc. 32.5 g/dL (32.0-36.0); Monocytes # (auto) 0.7 10 ^3/uL (0-1.3); Monocytes % (auto) 8.8 % (0.0-12.0); Neutrophils # (auto) 5.3 10 ^3/uL (1.6-8.6); Neutrophils % (auto) 67.3 % (37.0-80.0); Nucleated Red Blood Cells % 0.1 %; Red Blood Cells 2.91 10^6/uL (4.5-5.90); Red Cell Distribution Width 16.3 % (11.8-14.3); White Blood Cell 7.8 10^3/uL (4.4-10.8)
[2022-12-06 06:47] LABS: Albumin 2.7 g/dL (3.4-5.0); Calcium 8.9 mg/dL (8.5-10.1); Potassium 3.9 mmol/L (3.5-5.1)
[2022-12-06 06:51] LABS: Bilirubin, Total 0.3 mg/dL (0.2-1.0)
[2022-12-06 07:15] LABS: BUN/Creatinine Ratio 7.9 (10.0-20.0)
[2022-12-06] MEDS: B-COMPLEX W/ C & FOLIC ACID(NEPHROVITE TAB) PO SCH (08:43)
[2022-12-06] MEDS: FAMOTIDINE (10MG/ML) 2ML VL IV SCH ×2 (08:43→22:25)
[2022-12-06] MEDS: SEVELAMER 800 MG TAB PO SCH ×3 (08:43→18:24)
[2022-12-06] MEDS: ASPirin 81 mg TAB PO SCH (08:44)
[2022-12-06] MEDS ORDERED: ERGOCALCIFEROL 50,000 UNIT(1.25MG) CAP PO SCH ×2 (11:30→12:15)
[2022-12-06] MEDS ORDERED: IOHEXOL 350 MG/ML 100ML IJ ONE ×2 (17:38→23:23)
[2022-12-06] MEDS: TAMSULOSIN HYDROCHLORIDE 0.4 MG CAP PO SCH (18:24)
[2022-12-06] MEDS: APIXABAN 2.5 MG TAB PO SCH (22:22)
[2022-12-06] MEDS: ATORVASTATIN 20 MG TAB PO SCH (22:23)
[2022-12-06] MEDS: METOPROLOL TARTRATE 25 MG TAB PO SCH (22:25)
[2022-12-06] MEDS: cefTRIAXone 1GM/50ML D5W 50 ML IV SCH (22:26)
[2022-12-07 05:00] VITALS: BP 133/81
[2022-12-07] MEDS: SODIUM CHLOR 0.9% PF (SALINE LOCK) 10ML VIAL/SYR IV SCH ×3 (06:37→22:00)
[2022-12-07 09:00] VITALS: BP 145/81
[2022-12-07] MEDS: SEVELAMER 800 MG TAB PO SCH ×4 (09:00→19:00)
[2022-12-07] MEDS: FAMOTIDINE (10MG/ML) 2ML VL IV SCH ×2 (10:05→22:58)
[2022-12-07] MEDS: B-COMPLEX W/ C & FOLIC ACID(NEPHROVITE TAB) PO SCH (10:07)
[2022-12-07] MEDS: APIXABAN 2.5 MG TAB PO SCH ×2 (10:07→22:54)
[2022-12-07] MEDS: METOPROLOL TARTRATE 25 MG TAB PO SCH ×2 (10:15→22:58)
[2022-12-07 13:00] VITALS: BP 140/89
[2022-12-07 17:00] VITALS: BP 143/94
[2022-12-07 18:59] LABS: Folate (Folic Acid) > 24.00 ng/mL (5.38-24)
[2022-12-07] MEDS: TAMSULOSIN HYDROCHLORIDE 0.4 MG CAP PO SCH (19:00)
[2022-12-07 20:00] VITALS: BP 112/72
[2022-12-07 22:00] VITALS: BP 112/72
[2022-12-07] MEDS: ATORVASTATIN 20 MG TAB PO SCH (22:54)
[2022-12-08 05:00] VITALS: BP 117/70
[2022-12-08] MEDS: SODIUM CHLOR 0.9% PF (SALINE LOCK) 10ML VIAL/SYR IV SCH ×3 (06:00→22:00)
[2022-12-08 08:36] VITALS: BP 113/73
[2022-12-08] MEDS: FAMOTIDINE (10MG/ML) 2ML VL IV SCH ×2 (08:55→23:08)
[2022-12-08] MEDS: APIXABAN 2.5 MG TAB PO SCH ×2 (08:55→23:08)
[2022-12-08] MEDS: B-COMPLEX W/ C & FOLIC ACID(NEPHROVITE TAB) PO SCH (08:55)
[2022-12-08] MEDS: METOPROLOL TARTRATE 25 MG TAB PO SCH ×2 (08:56→23:09)
[2022-12-08] MEDS: SEVELAMER 800 MG TAB PO SCH ×3 (08:57→17:19)
[2022-12-08] MEDS ORDERED: PROM1SOL4 PO (10:11)
[2022-12-08] MEDS ORDERED: ONDA-144 PO (10:11)
[2022-12-08] MEDS ORDERED: NITR0.4S29 SL (10:11)
[2022-12-08] MEDS ORDERED: BENZ100C97 PO (10:11)
[2022-12-08] MEDS ORDERED: CLOT1CRE56 TOP (10:11)
[2022-12-08 11:04] LABS: BUN/Creatinine Ratio 6.9 (10.0-20.0); Calcium 8.9 mg/dL (8.5-10.1); Potassium 4.1 mmol/L (3.5-5.1)
[2022-12-08] MEDS ORDERED: OPTISON 3ml Vial for INJ IV ONE (11:31)
[2022-12-08 12:47] VITALS: BP 119/77
[2022-12-08] MEDS ORDERED: SODIUM CHL 0.9% 1000 ML BAG XX ONE (15:08)
[2022-12-08 16:49] VITALS: BP 127/83
[2022-12-08] MEDS: TAMSULOSIN HYDROCHLORIDE 0.4 MG CAP PO SCH (17:18)
[2022-12-08 20:00] VITALS: BP 104/70
[2022-12-08 22:00] VITALS: BP 104/70
[2022-12-08] MEDS: ATORVASTATIN 20 MG TAB PO SCH (23:08)
[2022-12-09 05:00] VITALS: BP 119/77
[2022-12-09] MEDS: SODIUM CHLOR 0.9% PF (SALINE LOCK) 10ML VIAL/SYR IV SCH ×3 (06:25→22:17)
[2022-12-09] MEDS ORDERED: SODIUM CHL 0.9% 1000 ML BAG XX ONE (07:00)
[2022-12-09 07:56] LABS: Hematocrit 30.6 % (41.0-53.0); Hemoglobin 10.1 g/dL (13.5-17.5)
[2022-12-09] MEDS: APIXABAN 2.5 MG TAB PO SCH ×2 (08:13→22:17)
[2022-12-09] MEDS: FAMOTIDINE (10MG/ML) 2ML VL IV SCH ×2 (08:13→22:12)
[2022-12-09] MEDS: B-COMPLEX W/ C & FOLIC ACID(NEPHROVITE TAB) PO SCH (08:13)
[2022-12-09] MEDS: SEVELAMER 800 MG TAB PO SCH ×3 (08:13→18:18)
[2022-12-09 08:15] LABS: BUN/Creatinine Ratio 6.4 (10.0-20.0); Calcium 8.9 mg/dL (8.5-10.1); Potassium 4.3 mmol/L (3.5-5.1)
[2022-12-09 08:22] LABS: % Iron Saturation 21.6 % (20-55)
[2022-12-09 09:00] VITALS: BP 123/73
[2022-12-09] MEDS: METOPROLOL TARTRATE 25 MG TAB PO SCH ×2 (10:00→22:18)
[2022-12-09 13:00] VITALS: BP 125/86
[2022-12-09 16:36] VITALS: BP 119/85
[2022-12-09] MEDS: TAMSULOSIN HYDROCHLORIDE 0.4 MG CAP PO SCH (18:18)
[2022-12-09 20:00] VITALS: BP 140/88
[2022-12-09] MEDS ORDERED: EPOETIN ALFA-EPBX 10,000 UNIT/1ML VIAL SC ONE (21:00)
[2022-12-09 22:00] VITALS: BP 140/88
[2022-12-09] MEDS: ATORVASTATIN 20 MG TAB PO SCH (22:17)
[2022-12-10 05:00] VITALS: BP 157/87
[2022-12-10 05:20] VITALS: BP 126/84
[2022-12-10] MEDS: SODIUM CHLOR 0.9% PF (SALINE LOCK) 10ML VIAL/SYR IV SCH ×3 (06:39→22:23)
[2022-12-10 08:00] VITALS: BP 112/77
[2022-12-10] MEDS: FAMOTIDINE (10MG/ML) 2ML VL IV SCH ×2 (09:20→22:23)
[2022-12-10] MEDS: SEVELAMER 800 MG TAB PO SCH ×3 (09:20→17:27)
[2022-12-10] MEDS: APIXABAN 2.5 MG TAB PO SCH ×2 (09:20→22:23)
[2022-12-10] MEDS: METOPROLOL TARTRATE 25 MG TAB PO SCH ×2 (09:21→22:23)
[2022-12-10] MEDS: B-COMPLEX W/ C & FOLIC ACID(NEPHROVITE TAB) PO SCH (09:21)
[2022-12-10 12:00] VITALS: BP 118/75
[2022-12-10 12:28] LABS: Hepatitis A Ab IgM Negative; Hepatitis B Core IgM Negative; Hepatitis C Antibody Negative (Negative)
[2022-12-10 16:00] VITALS: BP 116/80
[2022-12-10] MEDS: TAMSULOSIN HYDROCHLORIDE 0.4 MG CAP PO SCH (17:27)
[2022-12-10 22:00] VITALS: BP 108/74
[2022-12-10] MEDS: MUPIROCIN 2% OINT 15gm or 22gm FOR MRSA NARES EACHNOSTRI SCH (22:22)
[2022-12-10] MEDS: ATORVASTATIN 20 MG TAB PO SCH (22:23)
[2022-12-11 05:00] VITALS: BP 120/89
[2022-12-11] MEDS: SODIUM CHLOR 0.9% PF (SALINE LOCK) 10ML VIAL/SYR IV SCH ×2 (06:45→14:00)
[2022-12-11] MEDS ORDERED: SODIUM CHL 0.9% 1000 ML BAG XX ONE (07:00)
[2022-12-11 09:00] VITALS: BP 129/83
[2022-12-11] MEDS: SEVELAMER 800 MG TAB PO SCH ×2 (09:14→12:00)
[2022-12-11] MEDS: MUPIROCIN 2% OINT 15gm or 22gm FOR MRSA NARES EACHNOSTRI SCH (09:14)
[2022-12-11] MEDS: APIXABAN 2.5 MG TAB PO SCH (09:15)
[2022-12-11] MEDS: B-COMPLEX W/ C & FOLIC ACID(NEPHROVITE TAB) PO SCH (09:15)
[2022-12-11] MEDS: FAMOTIDINE (10MG/ML) 2ML VL IV SCH (09:15)
[2022-12-11] MEDS: METOPROLOL TARTRATE 25 MG TAB PO SCH (09:15)
[2022-12-11 10:58] LABS: % Iron Saturation 35.7 % (20-55)
[2022-12-11 13:00] VITALS: BP 107/62
[2022-12-11 13:14] LABS: Hematocrit 35.3 % (41.0-53.0); Hemoglobin 11.2 g/dL (13.5-17.5)
[2022-12-11 13:44] VITALS: BP 107/62
[2022-12-11 13:47] LABS: BUN/Creatinine Ratio 5.9 (10.0-20.0); Calcium 9.1 mg/dL (8.5-10.1); Potassium 4.1 mmol/L (3.5-5.1)
[2022-12-11] MEDS ORDERED: EPOETIN ALFA-EPBX 10,000 UNIT/1ML VIAL SC ONE (21:00)
[2022-12-14 13:18] LABS: Hepatitis B Core IgM Negative; Hepatitis C Antibody Negative (Negative)
[2022-12-14 13:22] LABS: Hepatitis A Ab IgM Negative
== END 2022-12-11 17:07 | DRG 291 ==
LOC: ER 17:52 → EDBD 17:52 → TELE 12-05 00:41 → TELE-WESTW 12-05 13:00
PROVIDERS: ADMIT Nurse Practitioner Family; ATTEND Internal Medicine
PROC: 5A1D70Z Performance of Urinary Filtration, Intermittent, Less than 6 Hours Per Day (ICD-10-PCS; 2022-12-07)
PROC: 5A1D70Z Performance of Urinary Filtration, Intermittent, Less than 6 Hours Per Day (ICD-10-PCS; principal; 2022-12-09)
PROC: 5A1D70Z Performance of Urinary Filtration, Intermittent, Less than 6 Hours Per Day (ICD-10-PCS; 2022-12-11)
DX: I13.2 Hypertensive heart and chronic kidney disease with heart failure and with stage 5 chronic kidney disease, or end stage renal disease (principal); N18.6 End stage renal disease; I69.351 Hemiplegia and hemiparesis following cerebral infarction affecting right dominant side; R53.1 Weakness; D64.9 Anemia, unspecified; D72.829 Elevated white blood cell count, unspecified; E66.01 Morbid (severe) obesity due to excess calories; F17.200 Nicotine dependence, unspecified, uncomplicated; I25.10 Atherosclerotic heart disease of native coronary artery without angina pectoris; I48.91 Unspecified atrial fibrillation; I50.9 Heart failure, unspecified; J44.9 Chronic obstructive pulmonary disease, unspecified; K21.9 Gastro-esophageal reflux disease without esophagitis; M10.9 Gout, unspecified; N40.0 Benign prostatic hyperplasia without lower urinary tract symptoms; Z74.01 Bed confinement status; Z79.01 Long term (current) use of anticoagulants; Z79.82 Long term (current) use of aspirin; Z79.899 Other long term (current) drug therapy; Z82.49 Family history of ischemic heart disease and other diseases of the circulatory system; Z82.5 Family history of asthma and other chronic lower respiratory diseases; Z99.2 Dependence on renal dialysis; Z68.33 Body mass index [BMI] 33.0-33.9, adult
CPT/HCPCS: 36415; 70450; 70498; 70551; 71045; 73030; 80048; 80053; 80061; 80074; 82607; 82728; 82746; 82962; 83540; 83550; 83735; 83880; 84443; 84484; 85014; 85018; 85025; 87081; 87426; 90935; 93005; 93306; 93886; 95819; 96365; 97110; 97116; 97163; G0378; J0696; J1642; J3490; Q9956

== ENCOUNTER 2024-03-13 17:08 | Inpatient (IN) | payer MEDICAID, OTHER ==
[~2024-03-13] VITALS: Ht 188 cm; Wt 107.9 kg
[~2024-03-13 17:08] MED LIST changes: -AGG25C PO; +AMIO200T33 PO; +APIX2.5T PO; +ASPI-543 PO; +ATOR10TA52 PO; +ATOR20TA50 PO; +BENZ100C97 PO; +CLOT1CRE56 TOP; -DEXA6TAB6 PO; -DOXY-338 PO; -HYDR50TA15 PO; +HYDR50TA47 PO; -LOVA40TA72 PO; +MET25T PO; -METO-289 PO; +METO25TA5 PO; +NITR0.4S29 SL; +ONDA-144 PO; +PANT40T PO; +PROM1SOL4 PO; +SEVE800T8 PO; -TAM04C PO; +TAMS-35 PO; +[UNRECOGNIZED DRUG - CODE] PO
[2024-03-13 20:19] LABS: Basophils # (auto) 0.1 10 ^3/uL (0-0.2); Basophils % (auto) 0.6 % (0.0-2.0); Eosinophils # (auto) 0.5 10 ^3/uL (0-0.8); Eosinophils % (auto) 4.5 % (0.0-7.0); Hematocrit 26.3 % (41.0-53.0); Hemoglobin 8.3 g/dL (13.5-17.5); Lymphocytes # (auto) 0.9 10 ^3/uL (0.4-5.4); Lymphocytes % (auto) 8.1 % (10.0-50.0); Mean Corpuscular Hemoglobin 31.2 pg (28.0-32.0); Mean Corpuscular Hgb Conc. 31.6 g/dL (32.0-36.0); Mean Corpuscular Volume 98.9 fL (80.0-100.0); Monocytes # (auto) 0.8 10 ^3/uL (0-1.3); Monocytes % (auto) 7.5 % (0.0-12.0); Neutrophils # (auto) 8.8 10 ^3/uL (1.6-8.6); Neutrophils % (auto) 79.3 % (37.0-80.0); Red Blood Cells 2.66 10^6/uL (4.5-5.90); Red Cell Distribution Width 13.9 % (11.8-14.3); White Blood Cell 11.2 10^3/uL (4.4-10.8)
[2024-03-13 20:49] LABS: Alanine Aminotransferase 12 U/L (7-40); Albumin 3.8 g/dL (3.2-4.8); Alkaline Phosphatase 76 U/L (46-116); Anion Gap 12 (5-15); Aspartate Aminotransferase 14 U/L (13-40); BUN/Creatinine Ratio 4.9 (10.0-20.0); Bilirubin, Total 0.2 mg/dL (0.2-1.0); Blood Urea Nitrogen 17 mg/dL (9-23); Calcium 8.3 mg/dL (8.7-10.4); Carbon Dioxide 22 mmol/L (20-30); Chloride 106 mmol/L (98-107); Glucose 111 mg/dL (74-106); Potassium 4.1 mmol/L (3.5-5.1); Sodium 140 mmol/L (136-145); Total Protein 6.4 g/dL (5.7-8.2)
[2024-03-13 21:34] LABS: COVID19 ANTIGEN SOFIA FIA NEGATIVE (NEGATIVE); Rapid Influenza A Negative (Negative); Rapid Influenza B Negative (Negative)
[2024-03-13] MEDS ORDERED: HYDROcodone-ACET 5/325MG TAB PO PRN (23:15)
[2024-03-13] MEDS ORDERED: MORPHINE SULFATE INJ 2 MG/ml SYRG IV PRN ×2 (23:15)
[2024-03-13] MEDS ORDERED: DOCUSATE SOD 100 MG CAP PO PRN (23:15)
[2024-03-13] MEDS ORDERED: ONDANSETRON HCL 4 MG/2 ML VIAL IV PRN (23:15)
[2024-03-13] MEDS ORDERED: NITROGLYCERIN 0.4 MG SL TAB SL PRN (23:15)
[2024-03-13] MEDS ORDERED: ACETAMINOPHEN 325 MG TAB PO PRN (23:15)
[2024-03-13 23:25] VITALS: BP 118/68; PULSE 94; RESP 12; TEMP 98.7; O2SAT 100
[2024-03-14] VITALS (16 sets, daily range): BP systolic 116–120; BP diastolic 71–75; PULSE 64–120; RESP 12–23; TEMP 98.2–98.3; O2SAT 93–100
[2024-03-14] MEDS: IPRATROPIUM BROM 0.5 MG/2.5ML INH SOL NEB SCH (01:20)
[2024-03-14] MEDS: ALBUTEROL SULF 2.5 MG/0.5ML(0.5%) NEB SOLN NEB SCH (01:20)
[2024-03-14 05:40] LABS: Basophils # (auto) 0.1 10 ^3/uL (0-0.2); Basophils % (auto) 0.7 % (0.0-2.0); Eosinophils # (auto) 0.5 10 ^3/uL (0-0.8); Eosinophils % (auto) 5.5 % (0.0-7.0); Hemoglobin 8.2 g/dL (13.5-17.5); Lymphocytes % (auto) 10.9 % (10.0-50.0); Mean Corpuscular Hemoglobin 32.5 pg (28.0-32.0); Mean Corpuscular Hgb Conc. 32.9 g/dL (32.0-36.0); Mean Corpuscular Volume 98.9 fL (80.0-100.0); Monocytes # (auto) 0.7 10 ^3/uL (0-1.3); Monocytes % (auto) 7.8 % (0.0-12.0); Neutrophils # (auto) 6.6 10 ^3/uL (1.6-8.6); Neutrophils % (auto) 75.1 % (37.0-80.0); Red Blood Cells 2.53 10^6/uL (4.5-5.90); White Blood Cell 8.8 10^3/uL (4.4-10.8)
[2024-03-14 05:43] LABS: Chloride 105 mmol/L (98-107); Potassium 4.3 mmol/L (3.5-5.1); Sodium 138 mmol/L (136-145)
[2024-03-14 05:44] LABS: Anion Gap 9 (5-15); Calcium 8.9 mg/dL (8.7-10.4); Carbon Dioxide 24 mmol/L (20-30)
[2024-03-14 05:49] LABS: BUN/Creatinine Ratio 4.4 (10.0-20.0); Blood Urea Nitrogen 19 mg/dL (9-23); Glucose 107 mg/dL (74-106)
[2024-03-14] MEDS: PANTOPRAZOLE 40 MG/10 ML VIAL INJ IV SCH (10:02)
[2024-03-14] MEDS: BUMETANIDE 2.5mg/10ml (0.25 mg/ml) INJ IV ONE (12:26)
[2024-03-14] MEDS: methylPREDNISolone SOD SUCC 40 MG/ML VL IV SCH (15:21)
[2024-03-14] MEDS ORDERED: MET50T PO (18:48)
[2024-03-14] MEDS: SEVELAMER CARBONATE 2.4 GM PO SCH (22:00)
[2024-03-14] MEDS: APIXABAN 2.5 MG TAB PO SCH (22:44)
[2024-03-14] MEDS: BUMETANIDE 2.5mg/10ml (0.25 mg/ml) INJ IV SCH (22:44)
[2024-03-14] MEDS: METOPROLOL TARTRATE 50 MG TAB PO SCH (22:45)
[2024-03-15] VITALS (20 sets, daily range): BP systolic 107–131; BP diastolic 67–74; PULSE 66–132; RESP 15–20; TEMP 97.7–98.2; O2SAT 92–100
[2024-03-15 07:12] LABS: Basophils # (auto) 0 10 ^3/uL (0-0.2); Basophils % (auto) 0.3 % (0.0-2.0); Eosinophils # (auto) 0 10 ^3/uL (0-0.8); Hemoglobin 8.4 g/dL (13.5-17.5); Mean Corpuscular Hemoglobin 32.2 pg (28.0-32.0); Monocytes # (auto) 0.2 10 ^3/uL (0-1.3); Monocytes % (auto) 2.4 % (0.0-12.0); Nucleated Red Blood Cells % 0.2 %
[2024-03-15 07:18] LABS: Lymphocytes # (auto) 0.5 10 ^3/uL (0.4-5.4); Lymphocytes % (auto) 5.1 % (10.0-50.0); Mean Corpuscular Hgb Conc. 32.3 g/dL (32.0-36.0); Mean Corpuscular Volume 99.8 fL (80.0-100.0); Neutrophils # (auto) 8.3 10 ^3/uL (1.6-8.6); Neutrophils % (auto) 92.2 % (37.0-80.0); Red Blood Cells 2.61 10^6/uL (4.5-5.90); Red Cell Distribution Width 14.4 % (11.8-14.3)
[2024-03-15 07:33] LABS: Anion Gap 7 (5-15); Carbon Dioxide 25 mmol/L (20-30); Chloride 105 mmol/L (98-107); Potassium 4.9 mmol/L (3.5-5.1); Sodium 137 mmol/L (136-145)
[2024-03-15 07:34] LABS: Calcium 9.2 mg/dL (8.5-10.1)
[2024-03-15 07:39] LABS: BUN/Creatinine Ratio 4.9 (10.0-20.0); Blood Urea Nitrogen 27 mg/dL (9-23); Glucose 125 mg/dL (74-106)
[2024-03-15] MEDS: IOHEXOL 350 MG/ML 100ML IJ ONE (13:04)
[2024-03-15] MEDS ORDERED: levoFLOXacin 500MG 100 ML IV SCH (15:00)
[2024-03-15] MEDS: levoFLOXacin 500MG 100 ML IV ONE (21:28)
[2024-03-15] MEDS: ATORVASTATIN 20 MG TAB PO SCH (21:29)
[2024-03-15] MEDS: EPOETIN ALFA-EPBX 4,000 UNIT/ML VIAL SC ONE (21:33)
[2024-03-16] VITALS (20 sets, daily range): BP systolic 111–158; BP diastolic 63–92; PULSE 80–108; RESP 16–20; TEMP 97.4–98.3; O2SAT 95–100
[2024-03-16 06:48] LABS: Basophils # (auto) 0 10 ^3/uL (0-0.2); Basophils % (auto) 0.1 % (0.0-2.0); Eosinophils # (auto) 0 10 ^3/uL (0-0.8); Eosinophils % (auto) 0.1 % (0.0-7.0); Hemoglobin 7.7 g/dL (13.5-17.5); Lymphocytes # (auto) 0.4 10 ^3/uL (0.4-5.4)
[2024-03-16 06:52] LABS: Hematocrit 24.1 % (41.0-53.0); Lymphocytes % (auto) 3.8 % (10.0-50.0); Mean Corpuscular Hemoglobin 31.5 pg (28.0-32.0); Mean Corpuscular Hgb Conc. 32.1 g/dL (32.0-36.0); Mean Corpuscular Volume 98.1 fL (80.0-100.0); Monocytes # (auto) 0.7 10 ^3/uL (0-1.3); Monocytes % (auto) 6.2 % (0.0-12.0); Neutrophils # (auto) 9.5 10 ^3/uL (1.6-8.6); Neutrophils % (auto) 89.8 % (37.0-80.0); Nucleated Red Blood Cells % 0.2 %; Red Blood Cells 2.46 10^6/uL (4.5-5.90); Red Cell Distribution Width 14.1 % (11.8-14.3); White Blood Cell 10.5 10^3/uL (4.4-10.8)
[2024-03-16 06:56] LABS: Chloride 101 mmol/L (98-107); Potassium 4.3 mmol/L (3.5-5.1); Sodium 138 mmol/L (136-145)
[2024-03-16 06:57] LABS: Anion Gap 7 (5-15); Calcium 9.2 mg/dL (8.5-10.1); Carbon Dioxide 30 mmol/L (20-30)
[2024-03-16] MEDS: SODIUM CHL 0.9% 1000 ML BAG XX ONE (07:00)
[2024-03-16 07:02] LABS: BUN/Creatinine Ratio 7.1 (10.0-20.0); Blood Urea Nitrogen 29 mg/dL (9-23); Glucose 121 mg/dL (74-106)
[2024-03-16] MEDS: levoFLOXacin 250MG 50 ML IV SCH (10:26)
[2024-03-17] VITALS (19 sets, daily range): BP systolic 114–155; BP diastolic 64–94; PULSE 73–103; RESP 14–27; TEMP 97.5–97.8; O2SAT 93–100
[2024-03-17 06:13] LABS: Basophils # (auto) 0 10 ^3/uL (0-0.2); Eosinophils # (auto) 0 10 ^3/uL (0-0.8); Lymphocytes # (auto) 0.5 10 ^3/uL (0.4-5.4); Lymphocytes % (auto) 5.1 % (10.0-50.0); Monocytes # (auto) 0.5 10 ^3/uL (0-1.3); Nucleated Red Blood Cells % 0.1 %
[2024-03-17 06:17] LABS: Hemoglobin 8.1 g/dL (13.5-17.5); Mean Corpuscular Hemoglobin 31.8 pg (28.0-32.0); Mean Corpuscular Hgb Conc. 32.5 g/dL (32.0-36.0); Mean Corpuscular Volume 97.8 fL (80.0-100.0); Monocytes % (auto) 5.2 % (0.0-12.0); Neutrophils % (auto) 89.7 % (37.0-80.0); Red Blood Cells 2.56 10^6/uL (4.5-5.90); Red Cell Distribution Width 14.1 % (11.8-14.3)
[2024-03-17 06:24] LABS: Chloride 102 mmol/L (98-107); Potassium 4.8 mmol/L (3.5-5.1); Sodium 136 mmol/L (136-145)
[2024-03-17 06:25] LABS: Anion Gap 5 (5-15); Calcium 9.2 mg/dL (8.5-10.1); Carbon Dioxide 29 mmol/L (20-30)
[2024-03-17 06:30] LABS: BUN/Creatinine Ratio 7.4 (10.0-20.0); Glucose 135 mg/dL (74-106)
[2024-03-17 06:32] LABS: Blood Urea Nitrogen 41 mg/dL (9-23)
[2024-03-17] MEDS ORDERED: LEVO250T58 PO (14:38)
[2024-03-17] MEDS ORDERED: ASPI-543 PO (14:38)
[2024-03-17] MEDS ORDERED: METH4PAK PO (14:38)
== END 2024-03-17 20:20 | disposition home or self-care (01) | DRG 291 ==
LOC: EDBD 17:08 → ER 17:08 → TELE-EAST 23:17 → TELE 23:17 → TELE-EAST 03-14 17:19
PROVIDERS: ADMIT Nurse Practitioner Family; ATTEND Nurse Practitioner Family
PROC: 5A1D70Z Performance of Urinary Filtration, Intermittent, Less than 6 Hours Per Day (ICD-10-PCS; principal; 2024-03-15)
PROC: 5A1D70Z Performance of Urinary Filtration, Intermittent, Less than 6 Hours Per Day (ICD-10-PCS; 2024-03-17)
DX: I13.2 Hypertensive heart and chronic kidney disease with heart failure and with stage 5 chronic kidney disease, or end stage renal disease (principal); I50.33 Acute on chronic diastolic (congestive) heart failure; J96.21 Acute and chronic respiratory failure with hypoxia; N18.6 End stage renal disease; J44.1 Chronic obstructive pulmonary disease with (acute) exacerbation; E11.22 Type 2 diabetes mellitus with diabetic chronic kidney disease; K21.9 Gastro-esophageal reflux disease without esophagitis; Z20.822 Contact with and (suspected) exposure to COVID-19; D63.1 Anemia in chronic kidney disease; Z79.01 Long term (current) use of anticoagulants; Z80.9 Family history of malignant neoplasm, unspecified; Z82.49 Family history of ischemic heart disease and other diseases of the circulatory system; Z82.5 Family history of asthma and other chronic lower respiratory diseases; Z99.2 Dependence on renal dialysis; Z99.81 Dependence on supplemental oxygen; Z90.79 Acquired absence of other genital organ(s); Z85.46 Personal history of malignant neoplasm of prostate; Z86.73 Personal history of transient ischemic attack (TIA), and cerebral infarction without residual deficits
CPT/HCPCS: 36415; 70450; 71045; 71275; 80048; 80053; 83605; 83735; 83880; 84484; 85025; 85379; 87081; 87340; 87426; 87804; 90935; 93005; 93306; 94640; 97110; 97163; 97530; G0378; J1642; J1956; J2470

== ENCOUNTER 2025-01-11 20:09 | Inpatient (IN) | payer OTHER, MEDICAID ==
[~2025-01-11] VITALS: Ht 182.9 cm; Wt 102.1 kg
[~2025-01-11 20:09] MED LIST changes: -ALBU1AER4 IN; -AMIO200T33 PO; -ATOR10TA52 PO; -BENZ100C97 PO; -CHOL20007 OR; -CLON0.1T PO; -CLOT1CRE56 TOP; -FEBU80TA PO; -HYDR-4833 PO; -HYDR50TA47 PO; -IPRIH INH; +LEVO250T58 PO; -MET25T PO; +MET50T PO; +METH4PAK PO; -METO25TA5 PO; -NIFE1TAB30 PO; -NITR0.4S29 SL; -PANT40TA2 PO; -PROM1SOL4 PO; -SEVE800T8 PO; -TAMS-35 PO
[2025-01-11] MEDS: AMIODARONE 360mg/200mL PREMIX 200 ML IV ONE (20:45)
--- NOTE | 2025-01-11 20:47 | ED.PDOC ---
SOB-HPI HPI Comments 79-year-old male who came to ER via EMS for shortness of breath. Per EMS, patient resides at [place] [facility], does have history of hypertension diabetes, CHF, COPD, end-stage renal disease, on dialysis. Per EMS, patient has been having productive cough or shortness a breath for the past few days. Denies any acute chest pains. Saturating 84% at 2 lpm, with a blood pressure of 174/97 mmHg. Chief Complaint: Shortness of Breath Time Seen by MD: 20:45 Primary Care Provider: ANGELI Farfan notes: Paper Machine Tender Notes Information Source: Patient, Emergency Med Personnel Mode of Arrival: EMS Severity: Moderate Timing: Days Duration: Since onset Context: With Light Exertion History of: COPD, CHF Prehospital treatment: Breathing Tx, Oxygen Modifying Factors: Nothing Associated Signs and Symptoms: Cough Quality: Aching, Tightness Radiation: No Radiation If cough with SOB: Productive Review of Systems REVIEW OF SYSTEMS: No fever, no chills, or fatigue HEENT: No sore throat, no earache, no congestion, no neck pain. Cardiac: No chest pain. No palpitations. Lungs: (+) shortness of breath, (+) cough. GI: No nausea, no vomiting, no diarrhea, no constipation, no abdominal pain : No dysuria, frequency, or urgency. No hematuria. Musculoskeletal: No joint pain , no joint swelling, no extremity edema. Skin: No rash, no itching. Neuro: No headache, no dizziness, no weakness Vital Signs Vital Signs Date Time Temp Pulse Resp B/P (MAP) Pulse Ox O2 Delivery O2 Flow Rate FiO2 01/12/25 03:00 77 01/12/25 03:00 27 102/58 (73) 99 01/11/25 23:00 98.9 98.9 01/11/25 22:00 Oxymizer 6 N/A Physical Exam General: Patient appears lethargic. Skin: Skin in warm, dry and intact without rashes or lesions. HEENT: The head is normocephalic and atraumatic. Cardiac: Rapid rate Respiratory: Patient is tachypneic No Stridor. Extremities: Upper and lower extremities are atraumatic in appearance without deformity. Neurological: The patient is awake, lethargic. There is no facial asymmetry. Past Medical History PAST MEDICAL HISTORY: CAD, CHF, COPD, CVA, DM, ESRD, GERD, Gout, High Lipids, HTN, UTI'S Past Medical History (Other): Dialysis every Wednesday Surgical History: PTCA Family History Family History: Reviewed,noncontributory to illness, Family hx of Cancer Social History Smoker: Non-Smoker, Quit Greater Than 1 Year Alcohol: Denies ETOH Use Drugs: Denies Drug Use Lives In: Half-Way EKG EKG : Pulse Rate (adult): 121 Cardiac Rhythm: Afib, Aflutter Comments No STEMI Was a procedure done? Was a procedure done?: No Differential Dx Differential Diagnosis: Bronchitis, CHF, COPD, Myocardial infarction, Pneumonia, Respiratory Distress, URI X-Ray, Labs, Meds, VS Vital Signs Date Time Temp Pulse Resp B/P (MAP) Pulse Ox O2 Delivery O2 Flow Rate FiO2 01/12/25 03:00 77 01/12/25 03:00 77 27 102/58 (73) 99 01/12/25 02:00 78 32 98/56 (70) 99 01/12/25 00:51 88 29 122/62 (82) 100 01/11/25 23:09 88 01/11/25 23:00 98.9 93 28 131/58 (82) 98 98.9 01/11/25 22:50 96 01/11/25 22:00 99 29 99 Oxymizer 6 N/A 01/11/25 21:56 98.9 99 18 162/81 (108) 99 98.9 01/11/25 21:09 113 01/11/25 20:46 121 01/11/25 20:12 121 01/11/25 20:09 98.3 118 24 174/97 (122) 98 98.3 Lab Test 01/11/25 23:30 01/11/25 22:54 01/11/25 21:09 01/11/25 20:38 Range/Units Influenza Type A Antigen Negative Negative Influenza Type B Antigen Negative Negative SARS-CoV-2 Antigen (Rapid) Negative NEGATIVE Lactic Acid Level 2.4 *H 4.0 *H 0.4-2.0 mmol/L White Blood Count 15.1 H 4.4-10.8 10^3/uL Red Blood Count 3.28 L 4.5-5.90 10^6/uL Hemoglobin 10.8 L 13.5-17.5 g/dL Hematocrit 34.9 L 41.0-53.0 % Mean Corpuscular Volume 106.4 H 80.0-100.0 fL Mean Corpuscular Hemoglobin 33.0 H 28.0-32.0 pg Mean Corpuscular Hemoglobin Concent 31.0 L 32.0-36.0 g/dL Red Cell Distribution Width 19.4 H 11.8-14.3 % Platelet Count 207 140-450 10^3/uL Mean Platelet Volume 7.0 6.9-10.8 fL Neutrophils (%) (Auto) 91.9 H 37.0-80.0 % Lymphocytes (%) (Auto) 1.9 L 10.0-50.0 % Monocytes (%) (Auto) 4.3 0.0-12.0 % Eosinophils (%) (Auto) 1.6 0.0-7.0 % Basophils (%) (Auto) 0.3 0.0-2.0 % Neutrophils # (Auto) 13.9 H 1.6-8.6 10 ^3/uL Lymphocytes # (Auto) 0.3 L 0.4-5.4 10 ^3/uL Monocytes # (Auto) 0.6 0-1.3 10 ^3/uL Eosinophils # (Auto) 0.2 0-0.8 10 ^3/uL Basophils # (Auto) 0 0-0.2 10 ^3/uL Nucleated Red Blood Cells 0.1 % Sodium Level 139 136-145 mmol/L Potassium Level 4.3 3.5-5.1 mmol/L Chloride Level 99 98-107 mmol/L Carbon Dioxide Level 28 20-31 mmol/L Anion Gap 12 5-15 Blood Urea Nitrogen 27 H 9-23 mg/dL Creatinine 4.64 H 0.700-1.30 mg/dL Glomerular Filtration Rate Calc 12 >90 mL/min BUN/Creatinine Ratio 5.8 L 10.0-20.0 Serum Glucose 101 74-106 mg/dL Calcium Level 9.1 8.7-10.4 mg/dL Total Bilirubin 0.6 0.2-1.0 mg/dL Aspartate Amino Transferase (AST) 13 13-40 U/L Alanine Aminotransferase (ALT) 11 7-40 U/L Alkaline Phosphatase 152 H 46-116 U/L Troponin I High Sensitivity 17 </=54 ng/L B-Type Natriuretic Peptide 175.50 0-100 pg/mL Total Protein 7.7 5.7-8.2 g/dL Albumin 4.3 3.2-4.8 g/dL Blood Gas Specimen Type Arterial Blood Gas Sample Site Left radial Blood Gas Patient Temperature 37.0 Arterial Blood Date Drawn [id number] Arterial Blood pH 7.415 7.350-7.450 Arterial Blood Partial Pressure CO2 47.5 35.0-48.0 mmHg Arterial Blood Partial Pressure O2 134.3 H 83.0-108.0 mmHg Arterial Blood HCO3 29.8 H 21.0-28.0 mmol/L Arterial Blood Oxygen Saturation 99.2 H 94.0-98.0 % Arterial Blood Base Excess 4.5 H -2.0-3.0 mmol/L Arterial Blood Oxyhemoglobin 98.0 94.0-98.0 % Arterial Blood Carboxyhemoglobin 0.7 0.5-1.5 % Arterial Blood Methemoglobin 0.5 0.0-1.5 % Cornelio Test Yes Blood Gas Total Hemoglobin 10.40 L 13.5-17.5 g/dL Blood Gas Liter Flow 15.00 Blood Gas Modality Mask - nrb FiO2 % 100.0 Microbiology Date/Time Source Procedure Growth Status 01/11/25 21:52 Blood Blood Culture - Preliminary Resulted 01/11/25 21:52 Blood Blood Culture - Preliminary Resulted Current Medications Medications (Trade) Dose Ordered Sig/Carmen Route Start Time Stop Time Status Last Admin Amiodarone HCl 100 ml @ 600 mls/hr ONCE ONCE IV 01/11/25 20:30 01/11/25 20:39 DC 01/11/25 21:41 Sodium Chloride 1,000 ml @ 250 mls/hr Q4H ONCE IV 01/11/25 22:15 01/12/25 02:14 DC 01/11/25 22:15 Ceftriaxone Sodium 50 ml @ 100 mls/hr ONCE ONCE IV 01/11/25 23:00 01/11/25 23:29 DC 01/11/25 23:00 Vancomycin HCl 200 ml @ 200 mls/hr ONCE ONCE IV 01/11/25 23:00 01/11/25 23:59 DC 01/11/25 23:11 Sodium Chloride 1,000 ml @ 130 mls/hr Q7H42M ONCE IV 01/11/25 23:00 01/12/25 06:41 DC 01/11/25 23:24 Sodium Chloride 500 ml @ 500 mls/hr Q1H ONCE IV 01/11/25 23:00 01/11/25 23:59 DC 01/11/25 22:55 CHEST RADIOGRAPH Indication: Shortness of breath Technique: Single frontal view of the chest was obtained Comparison: XY CHEST XRAY 1 VIEW on DOS: 03/13/24, XY CHEST PORTABLE on DOS: 08/02/23, XY CHEST PORTABLE on DOS: 12/04/22 FINDINGS: Lines and Tubes: The hemodialysis catheter from the right has been removed. Interval placement of a hemodialysis catheter from the left internal jugular vein demonstrates the tip of the catheter in the distal superior vena cava or cavoatrial junction Lungs: Increased interstitial markings when compared to 08/02/2023. Pleura: No effusion. No pneumothorax. Cardiomediastinal contours: Unremarkable Bones: No acute osseous abnormality. IMPRESSION: 1. Removal of the right internal jugular catheter and placement of a hemodialysis catheter from the left. Catheter tip is in the distal superior vena cava or cavoatrial junction. 2. Mildly prominent bronchovascular markings especially in the left perihilar and lower lobe. Time of 1ST Reevaluation: 20:41 Reevaluation 1ST: Unchanged Patient Education/Counseling: Diagnosis, Treatment Family Education/Counseling: Diagnosis, Treatment Departure 1 Departure Time of Disposition: 22:48 Impression: Primary Impression: Atrial fibrillation with RVR Additional Impression: Sepsis Disposition: 01 HOME / SELF CARE / HOMELESS Condition: Stable Comments Patient admitted to hospitalist service for further treatment, evaluation and monitoring. Extensive evaluation was performed in attempt to identify or rule out: (See differential diagnosis section) The following tests were ordered, and results were reviewed by me and discussed with patient: (See diagnostic results section) The following test were independently interpreted by me: EKG I reviewed and agreed with the following test results read by other providers: Chest x-ray I reviewed the following notes from the pt's past medical encounters: N/A Additional information was gathered from interviewing the following independent historians: N/A Discussion of management or test interpretation with external physician/other qualified health nonfarm animal caretaker: N/A Acute or chronic illness that poses a threat to life or bodily function: Sepsis, AFib with RVR Decision regarding hospitalization or escalation of hospital level of care: Risk and benefits of admission for further treatment of patient's condition was considered. Due to patient's current clinical condition, high risk of decline and poor outcome if discharged and need for further inpatient management and monitoring, patient will be admitted to the hospital. Discussed with patient. Drug therapy requiring intensive monitoring for toxicity: IV amiodarone Parenteral controlled substances: N/A Decision regarding elective major surgery with identified patient or procedure risk factors: N/A Decision regarding emergency major surgery: N/A Decision not to resuscitate or to de-escalate care because of poor prognosis: N/A Diagnosis or treatment significantly limited by social determinants of health: N/A Critical Care Note Critical Care Time?: Yes (35 min-critical care time only) Critical care comment: Shortness of breath Stability Stability form required: No Heart Score Heart Score: Heart Score Response (Comments) Value History Moderate Suspicious 1 EKG Repolarization Disturb 1 Age >65 2 Risk Factors >3 or Hx ASHD 2 Troponin Normal limit 0 Total 6 I personally scribed for DRAKE DEL TORO MD ([email or web address]) on 01/11/25 at 20:46. Electronically submitted by Aristides Kennedy ([employer]). I personally scribed for DRAKE DEL TORO MD ([email or web address]) on 01/11/25 at 22:08. Electronically submitted by Aristides Kennedy ([employer]). DRAKE DEL TORO MD January 11, 2025 20:46
[2025-01-11 20:51] LABS: Base Excess 4.5 mmol/L (-2.0-3.0)
[2025-01-11 21:26] LABS: Basophils # (auto) 0 10 ^3/uL (0-0.2); Basophils % (auto) 0.3 % (0.0-2.0); Eosinophils # (auto) 0.2 10 ^3/uL (0-0.8); Eosinophils % (auto) 1.6 % (0.0-7.0); Hematocrit 34.9 % (41.0-53.0); Hemoglobin 10.8 g/dL (13.5-17.5); Lymphocytes # (auto) 0.3 10 ^3/uL (0.4-5.4); Lymphocytes % (auto) 1.9 % (10.0-50.0); Mean Corpuscular Volume 106.4 fL (80.0-100.0); Monocytes # (auto) 0.6 10 ^3/uL (0-1.3); Monocytes % (auto) 4.3 % (0.0-12.0); Neutrophils # (auto) 13.9 10 ^3/uL (1.6-8.6); Neutrophils % (auto) 91.9 % (37.0-80.0); Nucleated Red Blood Cells % 0.1 %; Platelet Count (auto) 207 10^3/uL (140-450); Red Blood Cells 3.28 10^6/uL (4.5-5.90); Red Cell Distribution Width 19.4 % (11.8-14.3); White Blood Cell 15.1 10^3/uL (4.4-10.8)
--- NOTE | 2025-01-11 21:40 | DVH ---
CHEST RADIOGRAPH Indication: Shortness of breath Technique: Single frontal view of the chest was obtained Comparison: XY CHEST XRAY 1 VIEW on DOS: 03/13/24, XY CHEST PORTABLE on DOS: 08/02/23, XY CHEST PORTABL E on DOS: 12/04/22 FINDINGS: Lines and Tubes: The hemodialysis catheter from the right has been removed. Interval placement of a h emodialysis catheter from the left internal jugular vein demonstrates the tip of the catheter in the distal superior vena cava or cavoatrial junction Lungs: Increased interstitial markings when compared to 08/02/2023. Pleura: No effusion. No pneumothorax. Cardiomediastinal contours: Unremarkable Bones: No acute osseous abnormality. IMPRESSION: 1. Removal of the right internal jugular catheter and placement of a hemodialysis catheter from the l eft. Catheter tip is in the distal superior vena cava or cavoatrial junction. 2. Mildly prominent bronchovascular markings especially in the left perihilar and lower lobe.
[2025-01-11] MEDS: AMIODARONE BOLUS KIT 100 ML IV ONE (21:41)
[2025-01-11 21:42] LABS: Alanine Aminotransferase 11 U/L (7-40); Albumin 4.3 g/dL (3.2-4.8); Anion Gap 12 (5-15); BUN/Creatinine Ratio 5.8 (10.0-20.0); Bilirubin, Total 0.6 mg/dL (0.2-1.0); Calcium 9.1 mg/dL (8.7-10.4); Carbon Dioxide 28 mmol/L (20-31); Chloride 99 mmol/L (98-107); Glucose 101 mg/dL (74-106); Potassium 4.3 mmol/L (3.5-5.1); Sodium 139 mmol/L (136-145); Total Protein 7.7 g/dL (5.7-8.2)
[2025-01-11 21:52] LABS: Alkaline Phosphatase 152 U/L (46-116); Aspartate Aminotransferase 13 U/L (13-40); Blood Urea Nitrogen 27 mg/dL (9-23)
[2025-01-11 22:00] VITALS: PULSE 99; RESP 29; O2SAT 99
[2025-01-11] MEDS: SODIUM CHLORIDE 0.9% 1,000 ML IV ONE ×2 (22:15→23:24)
[2025-01-11] MEDS: SODIUM CHLORIDE 0.9% 500 ML IV ONE (22:55)
[2025-01-11] MEDS: cefTRIAXone 1GM/50ML D5W 50 ML IV ONE (23:00)
[2025-01-11] MEDS: VANCOMYCIN 1GM/200ML PM 200 ML IV ONE (23:11)
[2025-01-12] VITALS (11 sets, daily range): BP systolic 115–180; BP diastolic 61–111; PULSE 84–119; RESP 14–27; TEMP 97.8–100; O2SAT 94–100
[2025-01-12 00:34] LABS: COVID19 ANTIGEN SOFIA FIA NEGATIVE (NEGATIVE); Rapid Influenza A Negative (Negative); Rapid Influenza B Negative (Negative)
[2025-01-12] MEDS ORDERED: VANCOMYCIN PER PHARMACY 0 MG IV SCH ×2 (03:15→20:00)
[2025-01-12] MEDS ORDERED: NITROGLYCERIN 0.4 MG SL TAB SL PRN (03:15)
[2025-01-12] MEDS ORDERED: DOCUSATE SOD 100 MG CAP PO PRN (03:15)
[2025-01-12] MEDS ORDERED: ONDANSETRON HCL 4 MG/2 ML VIAL IV PRN (03:15)
[2025-01-12] MEDS ORDERED: DEXTROSE (50%) 50ML SYRG IV PRN (03:15)
[2025-01-12] MEDS ORDERED: MORPHINE SULFATE INJ 2 MG/ml SYRG IV PRN (03:15)
--- NOTE | 2025-01-12 03:18 | DVHHP2 ---
ANAISBELLE Brayden [facility] 01/12/25 0318: History of Present Illness Reason for Visit: Atrial fibrillation with RVR History of Present Illness The patient is a 79-year-old male with multiple past medical history including COPD, DM, CVA, CHF, and hypertension who presented to [facility] ED with complaint of shortness of breaths. Patient is symptoms progressively get worse with productive cough, increased work of breathing, getting worse that prompted this visit. Patient was seen and evaluated in the ED, laboratory data shows WBC 15.1, hemoglobin 10.8, hematocrit 34.9, platelets 207, sodium 139, potassium 4.3, BUN 27, creatinine 4.64, glucose 101, lactic acid 4.0 trending down to 2.4, BNP 175.50, troponin 17, blood pressure 174/94 trending down to 98/54, heart rate 121 trending down to 78, temperature 98.9 F, O2 saturation 99% on oxygen. Patient was started on IV antibiotic regimen vancomycin, please see medication orders section in the computer. On my assessment,. Patient denied chest pain, no headache, no dizziness, currently on oxygen, no diaphoresis, no nausea, no vomiting, no fever, no chills. Patient was admitted for further evaluation and medical management. Past Medical History CAD, CHF, COPD, CVA, DM, ESRD, GERD, Gout, High Lipids, HTN, UTI'S Past Surgical History PTCA, Dialysis access; Dialysis every Wednesday Family History Reviewed, noncontributory to the management of this case. Past Social History The patient lives at long-term, denies smoking, alcohol or illicit drugs abuse. Review of Systems Constitutional: Yes: Weakness; No: Fever, Chills, Sweats, Malaise, Other Eyes: No: Pain, Vision change, Conjunctivae inflammation, Eyelid inflammation, Other, Redness ENT: No: Ear pain, Ear discharge, Nose pain, Nose discharge, Nose congestion, Mouth pain, Mouth swelling, Throat pain, Throat swelling, Other Respiratory: Shortness of breath; No: Cough, Dry, SOB with excertion, Wheezing, Hemoptysis, Pleuritic Pain, Sputum, Wheezing, Other Cardiovascular: No: Chest Pain, Palpitations, Orthopnea, Paroxysmal Noc. Dyspnea, Edema, Lt Headedness, Other Gastrointestinal: No: Nausea, Vomiting, Abdominal Pain, Diarrhea, Constipation, Melena, Hematochezia, Other Genitourinary: No Dysuria, No Frequency, No Incontinence, No Hematuria, No Retention, No Other Musculoskeletal: No: other, neck pain, shoulder pain, arm pain, back pain, hand pain, leg pain, foot pain Skin: No: Rash, Lesions, Jaundice, Bruising, Other Neurological: No: Weakness, Numbness, Incoordination, Change in speech, Confusion, Seizures, Other Allergies: Coded Allergies: NO KNOWN ALLERGIES (Unverified , 03/08/18) Exam Vital Signs Vital Signs Date Time Temp Pulse Resp B/P (MAP) Pulse Ox O2 Delivery O2 Flow Rate FiO2 01/12/25 02:00 78 32 98/56 (70) 99 01/11/25 23:00 98.9 98.9 01/11/25 22:00 Oxymizer 6 N/A General Appearance: Alert, Oriented X3, Cooperative, No acute distress HEENT: Atraumatic, PERRLA, EOMI, Mucous membr. moist/pink Respiratory: Normal air movement Cardiovascular: Regular rate, Normal S1, Normal S2, No murmurs Abdominal: Normal bowel sounds, Soft, No tenderness, No hepatospenomegaly, No masses Extremities: No clubbing, No cyanosis, No edema, Normal pulses, No tenderness/swelling Skin: No rashes, No breakdown, No significant lesion Neuro: Normal speech, Normal tone, Sensation intact, Cranial nerves 3-12 NL, Reflexes 2+, Other (Generalized weakness) Psych/Mental Status: Mental status NL, Mood NL Labs/Xrays Labs Test 01/11/25 23:30 01/11/25 22:54 01/11/25 21:09 01/11/25 20:38 Range/Units Influenza Type A Antigen Negative Negative Influenza Type B Antigen Negative Negative SARS-CoV-2 Antigen (Rapid) Negative NEGATIVE Lactic Acid Level 2.4 *H 0.4-2.0 mmol/L White Blood Count 15.1 H 4.4-10.8 10^3/uL Red Blood Count 3.28 L 4.5-5.90 10^6/uL Hemoglobin 10.8 L 13.5-17.5 g/dL Hematocrit 34.9 L 41.0-53.0 % Mean Corpuscular Volume 106.4 H 80.0-100.0 fL Mean Corpuscular Hemoglobin 33.0 H 28.0-32.0 pg Mean Corpuscular Hemoglobin Concent 31.0 L 32.0-36.0 g/dL Red Cell Distribution Width 19.4 H 11.8-14.3 % Platelet Count 207 140-450 10^3/uL Mean Platelet Volume 7.0 6.9-10.8 fL Neutrophils (%) (Auto) 91.9 H 37.0-80.0 % Lymphocytes (%) (Auto) 1.9 L 10.0-50.0 % Monocytes (%) (Auto) 4.3 0.0-12.0 % Eosinophils (%) (Auto) 1.6 0.0-7.0 % Basophils (%) (Auto) 0.3 0.0-2.0 % Neutrophils # (Auto) 13.9 H 1.6-8.6 10 ^3/uL Lymphocytes # (Auto) 0.3 L 0.4-5.4 10 ^3/uL Monocytes # (Auto) 0.6 0-1.3 10 ^3/uL Eosinophils # (Auto) 0.2 0-0.8 10 ^3/uL Basophils # (Auto) 0 0-0.2 10 ^3/uL Nucleated Red Blood Cells 0.1 % Sodium Level 139 136-145 mmol/L Potassium Level 4.3 3.5-5.1 mmol/L Chloride Level 99 98-107 mmol/L Carbon Dioxide Level 28 20-31 mmol/L Anion Gap 12 5-15 Blood Urea Nitrogen 27 H 9-23 mg/dL Creatinine 4.64 H 0.700-1.30 mg/dL Glomerular Filtration Rate Calc 12 >90 mL/min BUN/Creatinine Ratio 5.8 L 10.0-20.0 Serum Glucose 101 74-106 mg/dL Calcium Level 9.1 8.7-10.4 mg/dL Total Bilirubin 0.6 0.2-1.0 mg/dL Aspartate Amino Transferase (AST) 13 13-40 U/L Alanine Aminotransferase (ALT) 11 7-40 U/L Alkaline Phosphatase 152 H 46-116 U/L Troponin I High Sensitivity 17 </=54 ng/L B-Type Natriuretic Peptide 175.50 0-100 pg/mL Total Protein 7.7 5.7-8.2 g/dL Albumin 4.3 3.2-4.8 g/dL Blood Gas Specimen Type Arterial Blood Gas Sample Site Left radial Blood Gas Patient Temperature 37.0 Arterial Blood Date Drawn [id number] Arterial Blood pH 7.415 7.350-7.450 Arterial Blood Partial Pressure CO2 47.5 35.0-48.0 mmHg Arterial Blood Partial Pressure O2 134.3 H 83.0-108.0 mmHg Arterial Blood HCO3 29.8 H 21.0-28.0 mmol/L Arterial Blood Oxygen Saturation 99.2 H 94.0-98.0 % Arterial Blood Base Excess 4.5 H -2.0-3.0 mmol/L Arterial Blood Oxyhemoglobin 98.0 94.0-98.0 % Arterial Blood Carboxyhemoglobin 0.7 0.5-1.5 % Arterial Blood Methemoglobin 0.5 0.0-1.5 % Cornelio Test Yes Blood Gas Total Hemoglobin 10.40 L 13.5-17.5 g/dL Blood Gas Liter Flow 15.00 Blood Gas Modality Mask - nrb FiO2 % 100.0 PATIENT: TINY JIM ACCT: [id number] UNIT: [id number] : 1945 LOC: ER ROOM / BED: / AGE / SEX: 79 / M ADM STATUS: REG ER SERVICE 28 ORDERING PHYSICIAN: DRAKE DEL TORO MD PROCEDURE(s): CXR1 - CHEST XRAY 1 VIEW REASON: Shortness of breath ORDER NUMBER(s): [id number], ACCESSION NUMBER(s): [id number] CHEST RADIOGRAPH Indication: Shortness of breath Technique: Single frontal view of the chest was obtained Comparison: XY CHEST XRAY 1 VIEW on DOS: 03/13/24, XY CHEST PORTABLE on DOS: 08/02/23, XY CHEST PORTABLE on DOS: 12/04/22 FINDINGS: Lines and Tubes: The hemodialysis catheter from the right has been removed. Interval placement of a hemodialysis catheter from the left internal jugular vein demonstrates the tip of the catheter in the distal superior vena cava or cavoatrial junction Lungs: Increased interstitial markings when compared to 08/02/2023. Pleura: No effusion. No pneumothorax. Cardiomediastinal contours: Unremarkable Bones: No acute osseous abnormality. IMPRESSION: 1. Removal of the right internal jugular catheter and placement of a hemodial ysis catheter from the left. Catheter tip is in the distal superior vena cava or cavoatrial junction. 2. Mildly prominent bronchovascular markings especially in the left perihilar and lower lobe. Assessment/Plan Assessment/Plan Atrial fibrillation with RVR Sepsis, unspecified organism End-stage renal disease on hemodialysis Generalized weakness Plan 1. Admit to telemetry unit 2. Breathing treatment 3. Pain control management 4. IV antibiotic management 5. Management of fluids and electrolytes 6. Consultation for Nephrology 7. Diagnostic test chest x-ray 8. DVT prophylaxis-on Eliquis 9. Repeat labs CBC, CMP in a.m. 10. Home medication reviewed and reconciled 11. Continue with current medical management 12. Treatment plan discussed with patient and RN. Patient verbalized understanding. Plan discussed with: Patient, Other (RN) My Orders Orders - BELLE MANZO DNP Procedure Category Date Status Time Complete Blood Count LAB 01/12/25 Verified 04:00 Comprehensive LAB 01/12/25 Verified Metabolic Panel 04:00 *[facility] CONS 01/12/25 Verified -[place] 03:07 Vancomycin Per PHA 01/12/25 Verified Pharmacy 03:15 Ceftriaxone Ivpb PHA 01/12/25 Verified Rocephin 09:00 B-Complex W/ C & PHA 01/12/25 Verified Folic Tablet 10:00 Sevelamer (Renagel) PHA 01/12/25 Verified 08:00 Famotidine Injection PHA 01/12/25 Verified (Pepcid Injection) 10:00 Carvedilol Tablet PHA 01/12/25 Verified (Coreg Tablet) 10:00 Atorvastatin (Lipitor) PHA 01/12/25 Verified 22:00 Amiodarone Tablet PHA 01/12/25 Verified (Cordarone Tablet) 10:00 Apixaban (Eliquis) PHA 01/12/25 Verified 10:00 Glucose Blood PHA 01/12/25 Verified (Accu-Chek Comfort 07:00 Mild Sliding Scale PHA 01/12/25 Verified 07:00 Dextrose 50% Syringe PHA 01/12/25 Verified 03:15 Admit ADMIT 01/12/25 Verified 03:07 Allergies LULY 01/12/25 Verified 03:07 Code Status CODE 01/12/25 Verified 03:07 Renal DIET 01/12/25 Verified Standard(2gna,3gk,Lopho) Breakfast Sodium Chloride Lock PHA 01/12/25 Verified (Saline Lock Ns) 06:00 Oxygen Per Hour RT 01/12/25 Verified 03:07 Hydrocodone-Acet PHA 01/12/25 Verified 5/325mg Tab (Terry 03:15 Ondansetron Hcl PHA 01/12/25 Verified (Zofran) 03:15 Docusate Sodium PHA 01/12/25 Verified Capsule (Colace 03:15 Complete Blood Count LAB 01/13/25 Verified 04:00 Comprehensive LAB 01/13/25 Verified Metabolic Panel 04:00 Condition: Serious [facility] 01/12/25 Verified 03:[address] [facility] 01/12/25 Verified (Tylenol Tablet) 03:15 Bedrest With Bathroom [facility] 01/12/25 Verified Privileg 03:07 Sequential [facility] 01/12/25 Verified Compression Device Nitroglycerin [facility] 01/12/25 Verified Sublingual (Ntrostat 03:[address] [facility] 01/12/25 Verified Injection 03:15 Notify Md Of Changes [facility] 01/12/25 Verified From Base 03:07 Education Intern For [facility] 01/12/25 Verified 24 Hours 03:07 Emergency Dysrhythmia [facility] 01/12/25 Verified Protocol 03:07 Rhythm Strips Once [facility] 01/12/25 Verified Every Shift 03:07 Oxygen By Nasal RT 01/12/25 Verified Cannula 03:07 Problem List: (1) Atrial fibrillation with RVR (2) Sepsis, unspecified organism (3) End-stage renal disease on hemodialysis (4) Generalized weakness Date of Service: January 12, 2025 Billing Provider: BELLE MANZO DNP Common Visit Codes: [id number] INP/OBS CARE (HIGH) GARLAND BLOUNT MD 01/12/25 1650: Review of Systems Allergies: Coded Allergies: NO KNOWN ALLERGIES (Unverified , 03/08/18) Additional Comments Additional Comments Additional Comments Patient was seen and evaluated by me. I agree with the assessment and plan as outlined by my nurse practitioner. BELLE MANZO DNP January 12, 2025 03:18 GARLAND BLOUNT MD January 12, 2025 16:50
[2025-01-12 05:27] LABS: Basophils # (auto) 0.1 10 ^3/uL (0-0.2); Eosinophils # (auto) 0.2 10 ^3/uL (0-0.8); Eosinophils % (auto) 1.2 % (0.0-7.0); Lymphocytes # (auto) 0.4 10 ^3/uL (0.4-5.4); Mean Corpuscular Hgb Conc. 31.9 g/dL (32.0-36.0)
[2025-01-12 05:30] LABS: Basophils % (auto) 0.4 % (0.0-2.0); Hematocrit 26.5 % (41.0-53.0); Hemoglobin 8.5 g/dL (13.5-17.5); Lymphocytes % (auto) 2.4 % (10.0-50.0); Mean Corpuscular Hemoglobin 33.2 pg (28.0-32.0); Monocytes # (auto) 1.3 10 ^3/uL (0-1.3); Monocytes % (auto) 6.9 % (0.0-12.0); Neutrophils # (auto) 16.3 10 ^3/uL (1.6-8.6); Neutrophils % (auto) 89.1 % (37.0-80.0); Nucleated Red Blood Cells % 0.1 %; Platelet Count (auto) 170 10^3/uL (140-450); Red Blood Cells 2.55 10^6/uL (4.5-5.90); Red Cell Distribution Width 18.4 % (11.8-14.3); White Blood Cell 18.3 10^3/uL (4.4-10.8)
[2025-01-12 05:44] LABS: Albumin 3.4 g/dL (3.2-4.8); Alkaline Phosphatase 103 U/L (46-116); Anion Gap 12 (5-15); BUN/Creatinine Ratio 5.9 (10.0-20.0); Bilirubin, Total 0.3 mg/dL (0.2-1.0); Carbon Dioxide 27 mmol/L (20-31); Chloride 99 mmol/L (98-107); Potassium 4.1 mmol/L (3.5-5.1); Sodium 138 mmol/L (136-145); Total Protein 6.1 g/dL (5.7-8.2)
[2025-01-12 05:50] LABS: Alanine Aminotransferase < 9 U/L (7-40); Aspartate Aminotransferase < 8 U/L (13-40); Blood Urea Nitrogen 31 mg/dL (9-23); Calcium 7.8 mg/dL (8.7-10.4); Glucose 111 mg/dL (74-106)
[2025-01-12] MEDS: ACCU-CHEK COMFORT CURVE STRIP VI SCH (07:00)
[2025-01-12] MEDS: SODIUM CHLOR 0.9% PF (SALINE LOCK) 10ML VIAL/SYR IV SCH (07:37)
[2025-01-12] MEDS: InsuLIN REG 1unit/0.01ml Soln (100units/ml) SC SCH (07:37)
[2025-01-12] MEDS: SEVELAMER 800 MG TAB PO SCH (08:10)
--- NOTE | 2025-01-12 09:04 | ECG ---
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
--- NOTE | 2025-01-12 09:04 | ECG ---
[facility] Test Date: 2025-01-11 Test Time: 21:09:18 Pat Name: RUTH JIM Department: ED Room: 0231T Gender: M Tape Stringer: BJ : 1945 Requested By: DRAKE DEL TORO Order Number: [id number] Reading MD: Benja Arroyo Measurements Intervals [place] Rate: 113 P: 0 NE: 0 QRS: 8 QRSD: 83 T: 32 QT: 311 QTc: 427 Interpretive Statements Atrial flutter with predominant 2:1 AV block Abnormal R-wave progression, early transition Borderline abnrm T, anterolateral leads Electronically Signed On 01-17-2025 12:06:27 PDT by Benja Arryoo Please click the below link to view image of tracing.
--- NOTE | 2025-01-12 09:05 | ECG ---
[facility] Test Date: 2025-01-11 Test Time: 23:09:03 Pat Name: RUTH JIM Department: ED Room: 0231T Gender: M Medical Claims Examiner: BJ : 1945 Requested By: DRAKE DEL TORO Order Number: [id number] Reading MD: Benja Arroyo Measurements Intervals [place] Rate: 88 P: 0 IA: 0 QRS: 4 QRSD: 90 T: -1 QT: 373 QTc: 452 Interpretive Statements Atrial flutter Multiple ventricular premature complexes Abnormal R-wave progression, early transition Inferior infarct, age indeterminate Baseline wander in lead(s) V3 Electronically Signed On 01-17-2025 12:06:41 PDT by Benja Arroyo Please click the below link to view image of tracing.
[2025-01-12] MEDS: cefTRIAXone 1GM/50ML D5W 50 ML IV SCH (09:18)
--- NOTE | 2025-01-12 10:04 | DVHCONRES ---
Date Seen: February 02, 2025 Resident Creating Document: BEATRIZ ROCK RESIDENT History of Present Illness Mr. Muñoz is a 79-year-old male with PMHx AFib on Eliquis, ESRD on hemodialysis with [facility] Wednesday/Wednesday/Wednesday for the past 2 years, COPD not on home oxygen, history of stroke twice last 09/2023, denies diabetes mellitus, hypertension who presented to the ER with a chief complaint of shortness of breaths and generalized weakness. Patient is A&O x3, reports experiencing flu-like symptoms including fever, chills, generalized weakness and body ache for the past 3 weeks. He has been experiencing worsening shortness of breaths especially on exertion associated with sore throat and congestion, can not cough up the phlegm. Patient denies orthopnea, PND, chest pain, palpitations. Last hemodialysis session was on Wednesday per patient Patient reports making urine PMHx: AFib on Eliquis, ESRD on hemodialysis with [facility] Wednesday/ Wednesday/Wednesday for the past 2 years, COPD not on home oxygen, history of stroke twice last 09/2023, denies diabetes mellitus, hypertension Social history: Lives alone, does not have a caregiver, quit smoking more than 15 years back, previously heavy smoker, denies drinking or illicit drug use Home medications: Eliquis 2.5 mg b.i.d., aspirin, atorvastatin, metoprolol tartrate 50 mg, pantoprazole, sevelamer TID Patient seen and examined in the ER. Saturating 99 on 6 L Oxymizer. Family History: Asthma G8 MOTHER, Onset:Unknown FH: cancer G8 FATHER Hypertension G8 FATHER Allergies: Coded Allergies: NO KNOWN ALLERGIES (Unverified , 03/08/18) Home Meds Active Scripts Aspirin (Aspir-Low) 81 Mg Tab, 81 MG PO DAILY, #60 TAB Prov:GARLAND BLOUNT MD 03/17/24 Atorvastatin Calcium (ATORVASTATIN CALCIUM) 20 Mg Tab, 1 TAB PO DAILY, #90 TAB 1 Refill Prov:TALA GODINEZ MD 08/04/23 Reported Medications Metoprolol Tartrate (LOPRESSOR TABLET) 50 Mg Tb, 1 TAB PO BID, #60 TAB 5 Refills 03/14/24 Pantoprazole Sodium Sesquihydr (Pantoprazole Sodium) 40 Mg Tab, 1 TAB PO DAILY 07/17/23 Apixaban Base (ELIQUIS) 2.5 Mg Tab, 1 TAB PO BID 07/17/23 Sevelamer Carbonate (Sevelamer Carbonate) 2.4 Gm Pow, 1 PKT PO TID 07/17/23 Current Medications Current Medications Medications (Trade) Dose Ordered Sig/Carmen Route PRN Reason Start Time Stop Time Status Last Admin Vancomycin HCl 0 ml @ 0 mls/hr UD IV 01/12/25 03:15 Ceftriaxone Sodium 50 ml @ 100 mls/hr DAILY@09 IV 01/12/25 09:00 01/12/25 09:18 Multivit/Ca Carb/ B Cmplx/FA/Prenat (Nephro-Feliz Tablet) 1 tab DAILY PO 01/12/25 10:00 Sevelamer HCl (Renagel) 1,200 mg TIDWM PO 01/12/25 08:00 01/12/25 08:10 Famotidine (Pepcid Injection) 20 mg DAILY IV 01/12/25 10:00 Carvedilol (Coreg Tablet) 3.125 mg Q12HR PO 01/12/25 10:00 Atorvastatin Calcium (Lipitor) 10 mg HS PO 01/12/25 22:00 Amiodarone HCl (Cordarone Tablet) 200 mg DAILY PO 01/12/25 10:00 Apixaban (Eliquis) 2.5 mg BID PO 01/12/25 10:00 Diagnostic Test (Pha) (Accu-Chek Comfort Curve T) 1 strip ACHS 01/12/25 07:00 01/12/25 07:00 Insulin Human Regular (InsuLIN R) ACHS SC 01/12/25 07:00 Dextrose 50 ml UD PRN IV Blood Sugar LESS THAN 60 01/12/25 03:15 Sodium Chloride (Saline Lock Ns) 10 ml Q8HR IV 01/12/25 06:00 01/12/25 07:37 Acetaminophen/ Hydrocodone Bitart ([place] 5/325MG Tab) 1 tab Q4HP PRN PO MODERATE PAIN (4-6 PAIN SCALE) 01/12/25 03:15 Ondansetron HCl (Zofran) 4 mg Q4HP PRN IV NAUSEA / VOMITING 01/12/25 03:15 Docusate Sodium (Colace Capsule) 100 mg BIDPRN PRN PO FOR CONSTIPATION 01/12/25 03:15 Acetaminophen (Tylenol Tablet) 650 mg Q6HP PRN PO PAIN SCALE 1-3 OR TEMP>100.4 01/12/25 03:15 Nitroglycerin (Ntrostat Sublingual) 0.4 mg Q5MINP PRN SL FOR CHEST PAIN 01/12/25 03:15 Morphine Sulfate 2 mg Q30M PRN IV FOR CHEST PAIN 01/12/25 03:15 Review of Systems Eyes: No Pain, No Vision change, No Conjunctivae inflammation, No Eyelid inflammation, No Other, No Redness ENT: No Ear pain, No Ear discharge, No Nose pain, No Nose discharge, No Nose congestion, No Mouth pain, No Mouth swelling, No Throat pain, No Throat swelling, No Other Cardiovascular: No Chest Pain, No Palpitations, No Orthopnea, No PND, No Edema, No Lt Headedness, No Other Respiratory: Reports dry cough, shortness of breaths, shortness of breath on exertion Gastrointestinal: No Nausea, No Vomiting, No Abdominal Pain, No Diarrhea, No Constipation, No Melena, No Hematochezia, No Other Genitourinary: No Dysuria, No Frequency, No Incontinence, No Hematuria, No Retention, No Other Musculoskeletal: No other, No neck pain, No shoulder pain, No arm pain, No back pain, No hand pain, No leg pain, No foot pain Skin: No Rash, No Lesions, No Jaundice, No Bruising, No Other Vital Signs Vital Signs Date Time Temp Pulse Resp B/P (MAP) Pulse Ox O2 Delivery O2 Flow Rate FiO2 01/12/25 08:30 84 27 100 Oxymizer 6 N/A 01/12/25 07:00 97.8 110/59 (76) 97.8 Physical Exam Obese male patient lying in the bed, mild cough General: Obese, afebrile,, mucosae are moist Cardiovascular: Regular S1 and S2. No murmurs, gallops or rubs. No JVD elevation. 1+ bilateral pedal edema pitting Respiratory: Decreased bilateral air entry on 6 L Oxymizer, saturating 99% Abdomen: Soft, nontender, nondistended, normoactive bowel sounds, no rebound ten derness, no organomegaly, no masses Genitourinary: Deferred MSK/skin: Mobilizes 4 limbs. Skin is dry and warm Psych/Mental Status: A/Ox3 Labs/Diagnostic Data Labs Test 01/12/25 07:33 01/12/25 04:58 01/11/25 23:30 01/11/25 22:54 Range/Units POC Glucose 109 H 70-106 mg/dl White Blood Count 18.3 H 4.4-10.8 10^3/uL Red Blood Count 2.55 L 4.5-5.90 10^6/uL Hemoglobin 8.5 #L 13.5-17.5 g/dL Hematocrit 26.5 #L 41.0-53.0 % Mean Corpuscular Volume 104.0 H 80.0-100.0 fL Mean Corpuscular Hemoglobin 33.2 H 28.0-32.0 pg Mean Corpuscular Hemoglobin Concent 31.9 L 32.0-36.0 g/dL Red Cell Distribution Width 18.4 H 11.8-14.3 % Platelet Count 170 140-450 10^3/uL Mean Platelet Volume 7.0 6.9-10.8 fL Neutrophils (%) (Auto) 89.1 H 37.0-80.0 % Lymphocytes (%) (Auto) 2.4 L 10.0-50.0 % Monocytes (%) (Auto) 6.9 0.0-12.0 % Eosinophils (%) (Auto) 1.2 0.0-7.0 % Basophils (%) (Auto) 0.4 0.0-2.0 % Neutrophils # (Auto) 16.3 H 1.6-8.6 10 ^3/uL Lymphocytes # (Auto) 0.4 0.4-5.4 10 ^3/uL Monocytes # (Auto) 1.3 0-1.3 10 ^3/uL Eosinophils # (Auto) 0.2 0-0.8 10 ^3/uL Basophils # (Auto) 0.1 0-0.2 10 ^3/uL Nucleated Red Blood Cells 0.1 % Sodium Level 138 136-145 mmol/L Potassium Level 4.1 3.5-5.1 mmol/L Chloride Level 99 98-107 mmol/L Carbon Dioxide Level 27 20-31 mmol/L Anion Gap 12 5-15 Blood Urea Nitrogen 31 H 9-23 mg/dL Creatinine 5.22 H 0.700-1.30 mg/dL Glomerular Filtration Rate Calc 11 >90 mL/min BUN/Creatinine Ratio 5.9 L 10.0-20.0 Serum Glucose 111 H 74-106 mg/dL Calcium Level 7.8 L 8.7-10.4 mg/dL Total Bilirubin 0.3 0.2-1.0 mg/dL Aspartate Amino Transferase (AST) < 8 L 13-40 U/L Alanine Aminotransferase (ALT) < 9 7-40 U/L Alkaline Phosphatase 103 46-116 U/L Total Protein 6.1 5.7-8.2 g/dL Albumin 3.4 3.2-4.8 g/dL Influenza Type A Antigen Negative Negative Influenza Type B Antigen Negative Negative SARS-CoV-2 Antigen (Rapid) Negative NEGATIVE Lactic Acid Level 2.4 *H 0.4-2.0 mmol/L Test 01/11/25 21:09 01/11/25 20:38 Range/Units Troponin I High Sensitivity 17 </=54 ng/L B-Type Natriuretic Peptide 175.50 0-100 pg/mL Blood Gas Specimen Type Arterial Blood Gas Sample Site Left radial Blood Gas Patient Temperature 37.0 Arterial Blood Date Drawn [id number] Arterial Blood pH 7.415 7.350-7.450 Arterial Blood Partial Pressure CO2 47.5 35.0-48.0 mmHg Arterial Blood Partial Pressure O2 134.3 H 83.0-108.0 mmHg Arterial Blood HCO3 29.8 H 21.0-28.0 mmol/L Arterial Blood Oxygen Saturation 99.2 H 94.0-98.0 % Arterial Blood Base Excess 4.5 H -2.0-3.0 mmol/L Arterial Blood Oxyhemoglobin 98.0 94.0-98.0 % Arterial Blood Carboxyhemoglobin 0.7 0.5-1.5 % Arterial Blood Methemoglobin 0.5 0.0-1.5 % Cornelio Test Yes Blood Gas Total Hemoglobin 10.40 L 13.5-17.5 g/dL Blood Gas Liter Flow 15.00 Blood Gas Modality Mask - nrb FiO2 % 100.0 Assessment Acute kidney injury superimposed on ESRD on hemodialysis ESRD on hemodialysis Wednesday/Wednesday/Wednesday Macrocytic Anemia, likely secondary to ESRD Acute hypoxic respiratory failure Acute COPD exacerbation secondary to probable pneumonia Probable sepsis secondary to pneumonia Paroxysmal Atrial fibrillation-on Eliquis-currently sinus Lactic acidosis History of CVA History of diabetes-patient denies Hypertension GERD Plan: BUN 31/creatinine 5.2, patient is scheduled for hemodialysis today. Follow up with urine studies Continue sevelamer t.i.d. Follow up with PTH, phosphate, vitamin-D Follow up with lactic acid levels Continue IV antibiotics, consider azithromycin and pulmonology consultation Nebulized treatments, sputum culture, MRSA nares Covid/flu pending Plan discussed with patient in which all questions have been answered Case discussed with Dr. Villareal Patient seen and examined by myself today in rounds with the medicine resident, I agree with his assessment and plan Patient examined on HD, BP stable Plan discussed with: Patient BEATRIZ ROCK RESIDENT January 12, 2025 10:04 TISH VILLAREAL MD January 12, 2025 17:29
[2025-01-12] MEDS: B-COMPLEX W/ C & FOLIC ACID(NEPHROVITE TAB) PO SCH (10:09)
[2025-01-12] MEDS: CARVEDILOL 3.125 MG TAB PO SCH (10:10)
[2025-01-12] MEDS: AMIODARONE HCL 200 MG TAB PO SCH (10:10)
[2025-01-12] MEDS: APIXABAN 2.5 MG TAB PO SCH (10:10)
[2025-01-12] MEDS: FAMOTIDINE (10MG/ML) 2ML VL IV SCH (10:11)
[2025-01-12] MEDS: IPRATROPIUM BROM 0.5 MG/2.5ML INH SOL NEB ONE (11:01)
[2025-01-12] MEDS: IPRATROPIUM BROM 0.5 MG/2.5ML INH SOL ONE (11:02)
[2025-01-12 11:43] LABS: Lactic Acid w/Reflex 2.1 mmol/L (0.4-2.0)
[2025-01-12] MEDS: SODIUM CHLORIDE 0.9% 1,000 ML IV ONE (11:50)
[2025-01-12] MEDS: IPRATROPIUM BROM 0.5 MG/2.5ML INH SOL NEB SCH (13:18)
[2025-01-12] MEDS: LEVALBUTEROL HCL 1.25 MG/3 ML NEB NEB SCH (13:19)
[2025-01-12] MEDS: ACETAMINOPHEN 325 MG TAB PO PRN (17:45)
[2025-01-12] MEDS: AMIODARONE BOLUS KIT 100 ML IV ONE (18:10)
[2025-01-12] MEDS: AMIODARONE 360mg/200mL PREMIX 200 ML IV ONE (18:18)
[2025-01-12] MEDS: EPOETIN ALFA-EPBX 10,000 UNIT/1ML VIAL SC ONE (21:00)
--- NOTE | 2025-01-12 21:38 | DVHINCON2 ---
Date of service: January 12, [address] Blount Reason for Consultation Acute hypoxic respiratory failure History of Present Illness A 79-year-old man with multiple past medical history including COPD, congestive heart failure, CAD, diabetes, hypertension and ESRD on dialysis who presented to ED on 01/11/25 with complaint of shortness of breath. Patient stated symptoms progressively got worse with productive cough, increased work of breathing that prompted this visit. Patient denied chest pain, headache, dizziness, fever, chills or GI symptoms. Workup in the ED showed WBC 15.1, hemoglobin 10.8, hematocrit 34.9, platelets 207, sodium 139, potassium 4.3, BUN 27, creatinine 4.64, glucose 101, lactic acid 4.0 trending down to 2.4, BNP 175.50 and troponin 17. Initial vitals showed blood pressure 174/94 trending down to 98/54, heart rate 121 trending down to 78, temperature 98.9 F, O2 saturation 99% on oxygen. Patient was admitted for further care, and pulmonary consultation is requested for evaluation and management of acute hypoxic respiratory failure. Review of Systems: 14-point review of systems negative unless otherwise noted above. Past Medical History COPD, congestive heart failure, CAD, CVA, diabetes mellitus, ESRD on dialysis, GERD, gout, hypertension, hyperlipidemia and UTI's Past Surgical History PTCA, Dialysis access Medications: Reviewed. Allergies: No known drug allergies. Family History: Asthma, cancer and hypertension Social History: Nonsmoker. No alcohol or illicit drug use. Family History: Asthma G8 MOTHER, Onset:Unknown FH: cancer G8 FATHER Hypertension G8 FATHER Allergies: Coded Allergies: NO KNOWN ALLERGIES (Unverified , 03/08/18) Home Meds Active Scripts Aspirin (Aspir-Low) 81 Mg Tab, 81 MG PO DAILY, #60 TAB Prov:GARLAND BLOUNT MD 03/17/24 Atorvastatin Calcium (ATORVASTATIN CALCIUM) 20 Mg Tab, 1 TAB PO DAILY, #90 TAB 1 Refill Prov:TALA GODINEZ MD 08/04/23 Reported Medications Metoprolol Tartrate (LOPRESSOR TABLET) 50 Mg Tb, 1 TAB PO BID, #60 TAB 5 Refills 03/14/24 Pantoprazole Sodium Sesquihydr (Pantoprazole Sodium) 40 Mg Tab, 1 TAB PO DAILY 07/17/23 Apixaban Base (ELIQUIS) 2.5 Mg Tab, 1 TAB PO BID 07/17/23 Sevelamer Carbonate (Sevelamer Carbonate) 2.4 Gm Pow, 1 PKT PO TID 07/17/23 Current Medications Current Medications Medications (Trade) Dose Ordered Sig/Carmen Route PRN Reason Start Time Stop Time Status Last Admin Vancomycin HCl 0 ml @ 0 mls/hr UD IV 01/12/25 03:15 Ceftriaxone Sodium 50 ml @ 100 mls/hr DAILY@09 IV 01/12/25 09:00 01/12/25 09:18 Multivit/Ca Carb/ B Cmplx/FA/Prenat (Nephro-Feliz Tablet) 1 tab DAILY PO 01/12/25 10:00 01/12/25 10:09 Sevelamer HCl (Renagel) 1,200 mg TIDWM PO 01/12/25 08:00 01/12/25 12:06 Famotidine (Pepcid Injection) 20 mg DAILY IV 01/12/25 10:00 01/12/25 10:11 Carvedilol (Coreg Tablet) 3.125 mg Q12HR PO 01/12/25 10:00 01/12/25 10:10 Atorvastatin Calcium (Lipitor) 10 mg HS PO 01/12/25 22:00 Amiodarone HCl (Cordarone Tablet) 200 mg DAILY PO 01/12/25 10:00 01/12/25 10:10 Apixaban (Eliquis) 2.5 mg BID PO 01/12/25 10:00 01/12/25 10:10 Diagnostic Test (Pha) (Accu-Chek Comfort Curve T) 1 strip ACHS 01/12/25 07:00 01/12/25 11:30 Insulin Human Regular (InsuLIN R) ACHS SC 01/12/25 07:00 Dextrose 50 ml UD PRN IV Blood Sugar LESS THAN 60 01/12/25 03:15 Sodium Chloride (Saline Lock Ns) 10 ml Q8HR IV 01/12/25 06:00 01/12/25 07:37 Acetaminophen/ Hydrocodone Bitart ([place] 5/325MG Tab) 1 tab Q4HP PRN PO MODERATE PAIN (4-6 PAIN SCALE) 01/12/25 03:15 Ondansetron HCl (Zofran) 4 mg Q4HP PRN IV NAUSEA / VOMITING 01/12/25 03:15 Docusate Sodium (Colace Capsule) 100 mg BIDPRN PRN PO FOR CONSTIPATION 01/12/25 03:15 Acetaminophen (Tylenol Tablet) 650 mg Q6HP PRN PO PAIN SCALE 1-3 OR TEMP>100.4 01/12/25 03:15 01/12/25 17:45 Nitroglycerin (Ntrostat Sublingual) 0.4 mg Q5MINP PRN SL FOR CHEST PAIN 01/12/25 03:15 Morphine Sulfate 2 mg Q30M PRN IV FOR CHEST PAIN 01/12/25 03:15 Ipratropium Shelly (Atrovent Medneb) 0.5 mg Q4HR NEB 01/12/25 14:00 01/12/25 18:23 Levalbuterol HCl (Xopenex Medneb) 1.25 mg Q4HR NEB 01/12/25 14:00 01/12/25 18:23 Vancomycin HCl 0 ml @ 0 mls/hr UD IV 01/12/25 20:00 UNV Vital Signs Vital Signs Date Time Temp Pulse Resp B/P (MAP) Pulse Ox O2 Delivery O2 Flow Rate FiO2 01/12/25 21:00 97.8 92 17 115/61 (79) 100 97.8 01/12/25 20:00 Nasal Cannula* 3 32 Physical Exam Gen.: Patient lying in bed in no apparent distress. On supplemental oxygen. Head: Normocephalic, atraumatic. Eyes: EOMI/PERRLA. Ears: Normal hearing. Normal anatomy. Neck/trachea: Trachea midline, supple. Nose: Normal external anatomy. Mouth: Moist mucous membranes. Chest: Decreased air entry bilaterally. No wheezing or rhonchi. Cardiovascular: Positive S1, positive S2. Regular rate and rhythm. Abdomen: Positive bowel sounds in all 4 quadrants. Soft, non-tender, non- distended. : Deferred. Rectal: Deferred. Skin: Warm, dry. Intact. Extremities: 2+ radial pulses bilaterally. No lower extremity edema. Neuro: Awake, alert, oriented x3. No gross motor or sensory deficits. Cranial nerves II through XII intact. Gait not assessed. Labs/Diagnostic Data Labs Test 01/12/25 12:00 01/12/25 11:12 01/12/25 04:58 01/11/25 23:30 Range/Units POC Glucose 107 H 70-106 mg/dl Lactic Acid Level 2.1 *H 0.4-2.0 mmol/L White Blood Count 18.3 H 4.4-10.8 10^3/uL Red Blood Count 2.55 L 4.5-5.90 10^6/uL Hemoglobin 8.5 #L 13.5-17.5 g/dL Hematocrit 26.5 #L 41.0-53.0 % Mean Corpuscular Volume 104.0 H 80.0-100.0 fL Mean Corpuscular Hemoglobin 33.2 H 28.0-32.0 pg Mean Corpuscular Hemoglobin Concent 31.9 L 32.0-36.0 g/dL Red Cell Distribution Width 18.4 H 11.8-14.3 % Platelet Count 170 140-450 10^3/uL Mean Platelet Volume 7.0 6.9-10.8 fL Neutrophils (%) (Auto) 89.1 H 37.0-80.0 % Lymphocytes (%) (Auto) 2.4 L 10.0-50.0 % Monocytes (%) (Auto) 6.9 0.0-12.0 % Eosinophils (%) (Auto) 1.2 0.0-7.0 % Basophils (%) (Auto) 0.4 0.0-2.0 % Neutrophils # (Auto) 16.3 H 1.6-8.6 10 ^3/uL Lymphocytes # (Auto) 0.4 0.4-5.4 10 ^3/uL Monocytes # (Auto) 1.3 0-1.3 10 ^3/uL Eosinophils # (Auto) 0.2 0-0.8 10 ^3/uL Basophils # (Auto) 0.1 0-0.2 10 ^3/uL Nucleated Red Blood Cells 0.1 % Sodium Level 138 136-145 mmol/L Potassium Level 4.1 3.5-5.1 mmol/L Chloride Level 99 98-107 mmol/L Carbon Dioxide Level 27 20-31 mmol/L Anion Gap 12 5-15 Blood Urea Nitrogen 31 H 9-23 mg/dL Creatinine 5.22 H 0.700-1.30 mg/dL Glomerular Filtration Rate Calc 11 >90 mL/min BUN/Creatinine Ratio 5.9 L 10.0-20.0 Serum Glucose 111 H 74-106 mg/dL Calcium Level 7.8 L 8.7-10.4 mg/dL Phosphorus Level 3.0 2.4-5.1 mg/dL Total Bilirubin 0.3 0.2-1.0 mg/dL Aspartate Amino Transferase (AST) < 8 L 13-40 U/L Alanine Aminotransferase (ALT) < 9 7-40 U/L Alkaline Phosphatase 103 46-116 U/L Total Protein 6.1 5.7-8.2 g/dL Albumin 3.4 3.2-4.8 g/dL Vitamin D 25-Hydroxy 58.1 30.0-100 ng/mL Parathyroid Hormone (Intact) 294.4 H 18.4-80.1 pg/mL Hepatitis B Surface Antigen Negative Negative Influenza Type A Antigen Negative Negative Influenza Type B Antigen Negative Negative SARS-CoV-2 Antigen (Rapid) Negative NEGATIVE Test 01/11/25 21:09 01/11/25 20:38 Range/Units Troponin I High Sensitivity 17 </=54 ng/L B-Type Natriuretic Peptide 175.50 0-100 pg/mL Blood Gas Specimen Type Arterial Blood Gas Sample Site Left radial Blood Gas Patient Temperature 37.0 Arterial Blood Date Drawn [id number] Arterial Blood pH 7.415 7.350-7.450 Arterial Blood Partial Pressure CO2 47.5 35.0-48.0 mmHg Arterial Blood Partial Pressure O2 134.3 H 83.0-108.0 mmHg Arterial Blood HCO3 29.8 H 21.0-28.0 mmol/L Arterial Blood Oxygen Saturation 99.2 H 94.0-98.0 % Arterial Blood Base Excess 4.5 H -2.0-3.0 mmol/L Arterial Blood Oxyhemoglobin 98.0 94.0-98.0 % Arterial Blood Carboxyhemoglobin 0.7 0.5-1.5 % Arterial Blood Methemoglobin 0.5 0.0-1.5 % Cornelio Test Yes Blood Gas Total Hemoglobin 10.40 L 13.5-17.5 g/dL Blood Gas Liter Flow 15.00 Blood Gas Modality Mask - nrb FiO2 % 100.0 Microbiology Date/Time Source Procedure Growth Status 01/11/25 21:52 Blood Blood Culture - Preliminary Resulted Assessment Impression: Acute hypoxic respiratory failure Dependence on supplemental oxygen Atrial fibrillation with rapid ventricular response End-stage renal disease, on hemodialysis Congestive heart failure Bacteremia with GPC in clusters Obesity BMI 32.6 Plan: Supplemental oxygen 2 LPM NC Titrate to keep O2 sats above 92%. Taper O2 as tolerated. Continue bronchodilators. Continue antibiotics Follow up cultures Diurese with Lasix HD per Nephrology Nephrology recs appreciated. Monitor renal function. Monitor electrolytes. Supplement as necessary. Monitor ins and outs. DVT prophylaxis. Prognosis: Poor given patient's multiple co-morbidities. Rest of plan per hospitalist and other consultants. Thank you, Dr. Blount, for allowing me to participate in this patient's care. Further recommendations will depend on the patient's clinical course. Please do not hesitate to contact me if you have any questions or concerns. This medical document was created using an electronic medical record system with [employer] dictation system. Although these documentations are being carefully reviewed, there may still be some phonetic and typographical changes. The errors are purely typographical, due to imperfection on the software program, and do not reflect any compromise in the patient's medical care. Plan discussed with: Patient, Other (ALFIE Granados/Dr. Blount) JUANITO ADAMS MD January 12, 2025 21:38
--- NOTE | 2025-01-12 22:29 | DVHINCON2 ---
Date of service: January 12, 2025 Referring Physician Jaylon Reason for Consultation A-fib w RVR History of Present Illness This is a 79-year-old male with a PMH of hypertension diabetes, CHF, COPD, end- stage renal disease, on dialysis (M,W,F) who is brought in by EMS from [facility] due to complaint of shortness of breath. Per EMS, patient has been having productive cough or shortness a breath for the past few days. EKG shows A Fib at 121. 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 LA 4.0 > 2.4. Troponin is negative. Viral swabs were negative. Chest x-ray shows mildly prominent bronchovascular markings especially in the left perihilar and lower lobe. Patient was admitted to the hospital. I am asked to consult on this patient. Family History: Asthma G8 MOTHER, Onset:Unknown FH: cancer G8 FATHER Hypertension G8 FATHER Allergies: Coded Allergies: NO KNOWN ALLERGIES (Unverified , 03/08/18) Home Meds Active Scripts Aspirin (Aspir-Low) 81 Mg Tab, 81 MG PO DAILY, #60 TAB Prov:GARLAND BLOUNT MD 03/17/24 Atorvastatin Calcium (ATORVASTATIN CALCIUM) 20 Mg Tab, 1 TAB PO DAILY, #90 TAB 1 Refill Prov:TALA GODINEZ MD 08/04/23 Reported Medications Metoprolol Tartrate (LOPRESSOR TABLET) 50 Mg Tb, 1 TAB PO BID, #60 TAB 5 Refills 03/14/24 Pantoprazole Sodium Sesquihydr (Pantoprazole Sodium) 40 Mg Tab, 1 TAB PO DAILY 07/17/23 Apixaban Base (ELIQUIS) 2.5 Mg Tab, 1 TAB PO BID 07/17/23 Sevelamer Carbonate (Sevelamer Carbonate) 2.4 Gm Pow, 1 PKT PO TID 07/17/23 Current Medications Current Medications Medications (Trade) Dose Ordered Sig/Carmen Route PRN Reason Start Time Stop Time Status Last Admin Vancomycin HCl 0 ml @ 0 mls/hr UD IV 01/12/25 03:15 01/12/25 21:44 DC Ceftriaxone Sodium 50 ml @ 100 mls/hr DAILY@09 IV 01/12/25 09:00 01/12/25 09:18 Multivit/Ca Carb/ B Cmplx/FA/Prenat (Nephro-Feliz Tablet) 1 tab DAILY PO 01/12/25 10:00 01/12/25 10:09 Sevelamer HCl (Renagel) 1,200 mg TIDWM PO 01/12/25 08:00 01/12/25 12:06 Famotidine (Pepcid Injection) 20 mg DAILY IV 01/12/25 10:00 01/12/25 10:11 Carvedilol (Coreg Tablet) 3.125 mg Q12HR PO 01/12/25 10:00 01/12/25 10:10 Atorvastatin Calcium (Lipitor) 10 mg HS PO 01/12/25 22:00 Amiodarone HCl (Cordarone Tablet) 200 mg DAILY PO 01/12/25 10:00 01/12/25 10:10 Apixaban (Eliquis) 2.5 mg BID PO 01/12/25 10:00 01/12/25 10:10 Diagnostic Test (Pha) (Accu-Chek Comfort Curve T) 1 strip ACHS 01/12/25 07:00 01/12/25 11:30 Insulin Human Regular (InsuLIN R) ACHS SC 01/12/25 07:00 Dextrose 50 ml UD PRN IV Blood Sugar LESS THAN 60 01/12/25 03:15 Sodium Chloride (Saline Lock Ns) 10 ml Q8HR IV 01/12/25 06:00 01/12/25 07:37 Acetaminophen/ Hydrocodone Bitart ([place] 5/325MG Tab) 1 tab Q4HP PRN PO MODERATE PAIN (4-6 PAIN SCALE) 01/12/25 03:15 Ondansetron HCl (Zofran) 4 mg Q4HP PRN IV NAUSEA / VOMITING 01/12/25 03:15 Docusate Sodium (Colace Capsule) 100 mg BIDPRN PRN PO FOR CONSTIPATION 01/12/25 03:15 Acetaminophen (Tylenol Tablet) 650 mg Q6HP PRN PO PAIN SCALE 1-3 OR TEMP>100.4 01/12/25 03:15 01/12/25 17:45 Nitroglycerin (Ntrostat Sublingual) 0.4 mg Q5MINP PRN SL FOR CHEST PAIN 01/12/25 03:15 Morphine Sulfate 2 mg Q30M PRN IV FOR CHEST PAIN 01/12/25 03:15 Ipratropium [place] (Atrovent Medneb) 0.5 mg Q4HR NEB 01/12/25 14:00 01/12/25 21:43 Levalbuterol HCl (Xopenex Medneb) 1.25 mg Q4HR NEB 01/12/25 14:00 01/12/25 21:43 Vancomycin HCl 0 ml @ 0 mls/hr UD IV 01/12/25 20:00 Review of Systems REVIEW OF SYSTEMS: No fever, no chills, or fatigue HEENT: No sore throat, no earache, no congestion, no neck pain. Cardiac: No chest pain. No palpitations. Lungs: (+) shortness of breath, (+) cough. GI: No nausea, no vomiting, no diarrhea, no constipation, no abdominal pain : No dysuria, frequency, or urgency. No hematuria. Musculoskeletal: No joint pain , no joint swelling, no extremity edema. Skin: No rash, no itching. Neuro: No headache, no dizziness, no weakness Vital Signs Vital Signs Date Time Temp Pulse Resp B/P (MAP) Pulse Ox O2 Delivery O2 Flow Rate FiO2 01/12/25 21:00 97.8 92 17 115/61 (79) 100 97.8 01/12/25 20:00 Nasal Cannula* 3 32 Physical Exam GENERAL: Alert and oriented x 3. No acute distress.. EYES: PERRL, EOMI. Anicteric. HENT: Moist mucous membranes. LUNGS: Decreased breath sounds. CARDIOVASCULAR: Regular rate and rhythm. ABDOMEN: Soft, nontender and nondistended. EXTREMITIES: No edema. NEUROLOGIC: No focal neurological deficits. SKIN: Warm, dry. Labs/Diagnostic Data Labs Test 01/12/25 12:00 01/12/25 11:12 01/12/25 04:58 01/11/25 23:30 Range/Units POC Glucose 107 H 70-106 mg/dl Lactic Acid Level 2.1 *H 0.4-2.0 mmol/L White Blood Count 18.3 H 4.4-10.8 10^3/uL Red Blood Count 2.55 L 4.5-5.90 10^6/uL Hemoglobin 8.5 #L 13.5-17.5 g/dL Hematocrit 26.5 #L 41.0-53.0 % Mean Corpuscular Volume 104.0 H 80.0-100.0 fL Mean Corpuscular Hemoglobin 33.2 H 28.0-32.0 pg Mean Corpuscular Hemoglobin Concent 31.9 L 32.0-36.0 g/dL Red Cell Distribution Width 18.4 H 11.8-14.3 % Platelet Count 170 140-450 10^3/uL Mean Platelet Volume 7.0 6.9-10.8 fL Neutrophils (%) (Auto) 89.1 H 37.0-80.0 % Lymphocytes (%) (Auto) 2.4 L 10.0-50.0 % Monocytes (%) (Auto) 6.9 0.0-12.0 % Eosinophils (%) (Auto) 1.2 0.0-7.0 % Basophils (%) (Auto) 0.4 0.0-2.0 % Neutrophils # (Auto) 16.3 H 1.6-8.6 10 ^3/uL Lymphocytes # (Auto) 0.4 0.4-5.4 10 ^3/uL Monocytes # (Auto) 1.3 0-1.3 10 ^3/uL Eosinophils # (Auto) 0.2 0-0.8 10 ^3/uL Basophils # (Auto) 0.1 0-0.2 10 ^3/uL Nucleated Red Blood Cells 0.1 % Sodium Level 138 136-145 mmol/L Potassium Level 4.1 3.5-5.1 mmol/L Chloride Level 99 98-107 mmol/L Carbon Dioxide Level 27 20-31 mmol/L Anion Gap 12 5-15 Blood Urea Nitrogen 31 H 9-23 mg/dL Creatinine 5.22 H 0.700-1.30 mg/dL Glomerular Filtration Rate Calc 11 >90 mL/min BUN/Creatinine Ratio 5.9 L 10.0-20.0 Serum Glucose 111 H 74-106 mg/dL Calcium Level 7.8 L 8.7-10.4 mg/dL Phosphorus Level 3.0 2.4-5.1 mg/dL Total Bilirubin 0.3 0.2-1.0 mg/dL Aspartate Amino Transferase (AST) < 8 L 13-40 U/L Alanine Aminotransferase (ALT) < 9 7-40 U/L Alkaline Phosphatase 103 46-116 U/L Total Protein 6.1 5.7-8.2 g/dL Albumin 3.4 3.2-4.8 g/dL Vitamin D 25-Hydroxy 58.1 30.0-100 ng/mL Parathyroid Hormone (Intact) 294.4 H 18.4-80.1 pg/mL Hepatitis B Surface Antigen Negative Negative Influenza Type A Antigen Negative Negative Influenza Type B Antigen Negative Negative SARS-CoV-2 Antigen (Rapid) Negative NEGATIVE Test 01/11/25 21:09 01/11/25 20:38 Range/Units Troponin I High Sensitivity 17 </=54 ng/L B-Type Natriuretic Peptide 175.50 0-100 pg/mL Blood Gas Specimen Type Arterial Blood Gas Sample Site Left radial Blood Gas Patient Temperature 37.0 Arterial Blood Date Drawn [id number] Arterial Blood pH 7.415 7.350-7.450 Arterial Blood Partial Pressure CO2 47.5 35.0-48.0 mmHg Arterial Blood Partial Pressure O2 134.3 H 83.0-108.0 mmHg Arterial Blood HCO3 29.8 H 21.0-28.0 mmol/L Arterial Blood Oxygen Saturation 99.2 H 94.0-98.0 % Arterial Blood Base Excess 4.5 H -2.0-3.0 mmol/L Arterial Blood Oxyhemoglobin 98.0 94.0-98.0 % Arterial Blood Carboxyhemoglobin 0.7 0.5-1.5 % Arterial Blood Methemoglobin 0.5 0.0-1.5 % Cornelio Test Yes Blood Gas Total Hemoglobin 10.40 L 13.5-17.5 g/dL Blood Gas Liter Flow 15.00 Blood Gas Modality Mask - nrb FiO2 % 100.0 Microbiology Date/Time Source Procedure Growth Status 01/11/25 21:52 Blood Blood Culture - Preliminary Resulted Assessment Atrial fibrillation with RVR. Sepsis, unspecified organism. End-stage renal disease on hemodialysis. Generalized weakness. Plan/Recommendation I agree with your ongoing assessment and care of plan. Telemetry reviewed. Echocardiogram. Morphine and [place] for pain management. Amiodarone. Eliquis. Lipitor. Coreg. Additional plan as per the hospital course. A total of 45 minutes was spent reviewing the patient record, examining the patient, making a diagnostic and therapeutic plan, discussing this plan with medical personnel, following up on diagnostic studies and following the patient for clinical stability excluding any and all procedures. At least 50% of this time was spent in direct, [id number] contact. Plan discussed with: Patient ANASTASIYA KOLB MD January 12, 2025 22:07
[2025-01-12] MEDS: ATORVASTATIN 20 MG TAB PO SCH (22:51)
[2025-01-13] VITALS (24 sets, daily range): BP systolic 107–149; BP diastolic 63–82; PULSE 81–109; RESP 17–20; TEMP 97.5–98.7; O2SAT 95–100
[2025-01-13] MEDS: AMIODARONE 360mg/200mL PREMIX 200 ML IV SCH (00:19)
[2025-01-13 07:17] LABS: Basophils # (auto) 0.1 10 ^3/uL (0-0.2); Eosinophils # (auto) 0.2 10 ^3/uL (0-0.8); Mean Corpuscular Hemoglobin 33.1 pg (28.0-32.0); Monocytes # (auto) 0.8 10 ^3/uL (0-1.3)
[2025-01-13 07:20] LABS: Basophils % (auto) 0.5 % (0.0-2.0); Eosinophils % (auto) 1.9 % (0.0-7.0); Hematocrit 28.1 % (41.0-53.0); Hemoglobin 8.9 g/dL (13.5-17.5); Lymphocytes # (auto) 0.3 10 ^3/uL (0.4-5.4); Lymphocytes % (auto) 2.8 % (10.0-50.0); Mean Corpuscular Hgb Conc. 31.8 g/dL (32.0-36.0); Monocytes % (auto) 7.2 % (0.0-12.0); Neutrophils % (auto) 87.6 % (37.0-80.0); Platelet Count (auto) 181 10^3/uL (140-450); Red Cell Distribution Width 18.3 % (11.8-14.3); White Blood Cell 11.4 10^3/uL (4.4-10.8)
[2025-01-13 07:45] LABS: Alanine Aminotransferase 10 U/L (7-40); Albumin 3.4 g/dL (3.2-4.8); Alkaline Phosphatase 114 U/L (46-116); Anion Gap 13 (5-15); Aspartate Aminotransferase 14 U/L (13-40); BUN/Creatinine Ratio 5.1 (10.0-20.0); Bilirubin, Total 0.4 mg/dL (0.2-1.0); Blood Urea Nitrogen 21 mg/dL (9-23); Calcium 8.8 mg/dL (8.7-10.4); Carbon Dioxide 25 mmol/L (20-31); Chloride 100 mmol/L (98-107); Sodium 138 mmol/L (136-145); Total Protein 6.4 g/dL (5.7-8.2)
[2025-01-13 07:48] LABS: Glucose 116 mg/dL (74-106); Potassium 3.4 mmol/L (3.5-5.1)
--- NOTE | 2025-01-13 09:53 | DVHPN2 ---
Progress Note Date Seen: January 13, 2025 Medical Necessity Reason Pt with a Central, PICC or Fol: No Subjective Patient reports: No new complaints Other Systems: Patient seen and examined by myself today in follow-up Objective vital signs Vital Sign Date Time Temp Pulse Resp B/P (MAP) Pulse Ox O2 Delivery O2 Flow Rate FiO2 01/13/25 08:30 99 107/63 01/13/25 06:00 20 100 01/13/25 05:52 Nasal Cannula* 1 24 01/13/25 05:00 97.5 97.5 Total Intake and Output 01/12/25 01/12/25 01/13/25 15:00 23:00 07:00 Intake Total 100 ml 120 ml 0 ml Output Total 0 ml Balance 100 ml 120 ml 0 ml medications Current Medications Medications Dose Ordered Sig/Carmen Route Start Time Stop Time Status Last Admin Dose Admin Ceftriaxone Sodium 50 ml @ 100 mls/hr DAILY@09 IV 01/12/25 09:00 01/13/25 08:33 100 MLS/HR Multivit/Ca Carb/ B Cmplx/FA/Prenat 1 tab DAILY PO 01/12/25 10:00 01/13/25 08:25 1 TAB Sevelamer HCl 1,200 mg TIDWM PO 01/12/25 08:00 01/13/25 08:25 1,200 MG Famotidine 20 mg DAILY IV 01/12/25 10:00 01/13/25 08:32 20 MG Carvedilol 3.125 mg Q12HR PO 01/12/25 10:00 01/13/25 08:30 3.125 MG Atorvastatin Calcium 10 mg HS PO 01/12/25 22:00 01/12/25 22:51 10 MG Amiodarone HCl 200 mg DAILY PO 01/12/25 10:00 01/13/25 08:26 200 MG Apixaban 2.5 mg BID PO 01/12/25 10:00 01/13/25 08:25 2.5 MG Diagnostic Test (Pha) 1 strip ACHS 01/12/25 07:00 01/12/25 11:30 1 STRIP Insulin Human Regular ACHS SC 01/12/25 07:00 Dextrose 50 ml UD PRN IV 01/12/25 03:15 Sodium Chloride 10 ml Q8HR IV 01/12/25 06:00 01/13/25 06:15 10 ML Acetaminophen/ Hydrocodone Bitart 1 tab Q4HP PRN PO 01/12/25 03:15 Ondansetron HCl 4 mg Q4HP PRN IV 01/12/25 03:15 Docusate Sodium 100 mg BIDPRN PRN PO 01/12/25 03:15 Acetaminophen 650 mg Q6HP PRN PO 01/12/25 03:15 01/12/25 17:45 650 MG Nitroglycerin 0.4 mg Q5MINP PRN SL 01/12/25 03:15 Morphine Sulfate 2 mg Q30M PRN IV 01/12/25 03:15 Ipratropium [place] 0.5 mg Q4HR NEB 01/12/25 14:00 01/13/25 05:52 0.5 MG Levalbuterol HCl 1.25 mg Q4HR NEB 01/12/25 14:00 01/13/25 05:52 1.25 MG Vancomycin HCl 0 ml @ 0 mls/hr UD IV 01/12/25 20:00 Examination: LUNGS:Normal, CVS:Normal, MSK:Normal laboratory and microbiology Laboratory Tests 01/13/25 06:31 Test 01/13/25 06:31 Range/Units Serum Glucose 116 H 74-106 mg/dL Microbiology Date/Time Source Procedure Growth Status 01/11/25 21:52 Blood Blood Culture - Preliminary Resulted Problem List/Assessment/Plan Problem List/Assessment/Plan ESRD on hemodialysis Wednesday/Wednesday/Wednesday Acute hypoxic respiratory failure Acute COPD exacerbation Pneumonia AFib with RVR Lactic acidosis History of CVA Hypertension GERD Microcytic anemia Recommendations Next hemodialysis 01/15 Epogen 98989 subQ 3 times weekly Resume home medications Renal diet IV antibiotics Renal vitamins We will continue to follow Plan discussed with: Patient My Orders My Orders Orders - TISH CHOW MD Procedure Category Date Status Time Hemodialysis Orders ORDERS 01/12/25 Transmitted 12:39 Dialysis Nursing LULY 01/12/25 In Process Message 12:39 Document Fluid Input LULY 01/12/25 In Process And Outpu 12:39 TISH CHOW MD January 13, 2025 09:53
--- NOTE | 2025-01-13 16:15 | DVHPN2 ---
Subjective I am assuming the care of the patient from today onwards who was under the care of the hospitalist team. Detailed sign out obtained. Patient was seen and evaluated by me currently getting breathing treatment. Family was updated at bedside. Changes from previous H/P or p: No Changes Eyes: No Pain, No Vision change, No Conjunctivae inflammation, No Eyelid inflammation, No Other, No Redness ENT: No Ear pain, No Ear discharge, No Nose pain, No Nose discharge, No Nose congestion, No Mouth pain, No Mouth swelling, No Throat pain, No Throat swelling, No Other Cardiovascular: No Chest Pain, No Palpitations, No Orthopnea, No Paroxysmal Noc. Dyspnea, No Edema, No Lt Headedness, No Other Respiratory: No Cough, No Dry; Shortness of breath; No SOB with excertion, No Wheezing, No Hemoptysis, No Pleuritic Pain, No Sputum, No Other Gastrointestinal: No Nausea, No Vomiting, No Abdominal Pain, No Diarrhea, No Constipation, No Melena, No Hematochezia, No Other Genitourinary: No Dysuria, No Frequency, No Incontinence, No Hematuria, No Retention, No Other Musculoskeletal: No other, No neck pain, No shoulder pain, No arm pain, No back pain, No hand pain, No leg pain, No foot pain Skin: No Rash, No Lesions, No Jaundice, No Bruising, No Other Objective Vitals Vital Signs Date Time Temp Pulse Resp B/P (MAP) Pulse Ox O2 Delivery O2 Flow Rate FiO2 01/13/25 15:14 95 18 100 01/13/25 15:06 Nasal Cannula* 1 24 01/13/25 09:30 149/82 01/13/25 09:00 98.1 98.1 Intake/Output Intake and Output 01/13/25 07:00 Intake Total 220 ml Output Total 0 ml Balance 220 ml Intake Oral 20 ml IV Total 200 ml Output Urine Total 0 ml Exam HEENT pupils are reactive Neck is supple CV is S1-S2 regular rate and rhythm Respiratory diminished breath sounds bases GI positive bowel sound Extremity no edema 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 motor 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 Medications Current Medications Medications Dose Ordered Sig/Carmen Route Start Time Stop Time Status Last Admin Dose Admin Ceftriaxone Sodium 50 ml @ 100 mls/hr DAILY@09 IV 01/12/25 09:00 01/13/25 08:33 100 MLS/HR Multivit/Ca Carb/ B Cmplx/FA/Prenat 1 tab DAILY PO 01/12/25 10:00 01/13/25 08:25 1 TAB Sevelamer HCl 1,200 mg TIDWM PO 01/12/25 08:00 01/13/25 11:20 1,200 MG Famotidine 20 mg DAILY IV 01/12/25 10:00 01/13/25 08:32 20 MG Carvedilol 3.125 mg Q12HR PO 01/12/25 10:00 01/13/25 08:30 3.125 MG Atorvastatin Calcium 10 mg HS PO 01/12/25 22:00 01/12/25 22:51 10 MG Amiodarone HCl 200 mg DAILY PO 01/12/25 10:00 01/13/25 08:26 200 MG Apixaban 2.5 mg BID PO 01/12/25 10:00 01/13/25 08:25 2.5 MG Diagnostic Test (Pha) 1 strip ACHS 01/12/25 07:00 01/13/25 11:22 1 STRIP Insulin Human Regular ACHS SC 01/12/25 07:00 Dextrose 50 ml UD PRN IV 01/12/25 03:15 Sodium Chloride 10 ml Q8HR IV 01/12/25 06:00 01/13/25 14:00 10 ML Acetaminophen/ Hydrocodone Bitart 1 tab Q4HP PRN PO 01/12/25 03:15 Ondansetron HCl 4 mg Q4HP PRN IV 01/12/25 03:15 Docusate Sodium 100 mg BIDPRN PRN PO 01/12/25 03:15 Acetaminophen 650 mg Q6HP PRN PO 01/12/25 03:15 01/12/25 17:45 650 MG Nitroglycerin 0.4 mg Q5MINP PRN SL 01/12/25 03:15 Morphine Sulfate 2 mg Q30M PRN IV 01/12/25 03:15 Ipratropium [place] 0.5 mg Q4HR NEB 01/12/25 14:00 01/13/25 15:06 0.5 MG Levalbuterol HCl 1.25 mg Q4HR NEB 01/12/25 14:00 01/13/25 15:06 1.25 MG Vancomycin HCl 0 ml @ 0 mls/hr UD IV 01/12/25 20:00 Laboratory Results Laboratory Tests 01/13/25 06:31 Chemistry Test 01/13/25 06:31 Albumin 3.4 g/dL (3.2-4.8) Calcium Level 8.8 mg/dL (8.7-10.4) Total Protein 6.4 g/dL (5.7-8.2) LFT Test 01/13/25 06:31 Alanine Aminotransferase (ALT) 10 U/L (7-40) Alkaline Phosphatase 114 U/L (46-116) Aspartate Amino Transferase (AST) 14 U/L (13-40) Total Bilirubin 0.4 mg/dL (0.2-1.0) HgA1c, TSH Test 01/13/25 06:31 Hemoglobin A1c < 3.8 % A1C (<5.7) Microbiology Microbiology Date/Time Source Procedure Growth Status 01/12/25 14:01 Nose MRSA Screen - Final Methicillin Resistant S.aureus Complete 01/11/25 21:52 Blood Blood Culture - Preliminary Resulted Assessment/Plan Assessment/Plan 79-year-old male with a known history of end-stage renal disease on hemodialysis, chronic respiratory failure on home O2, COPD, congestive heart failure, chronic AFib, history of previous CVA, chronic anemia who initially presented to the hospital with the increasing shortness a breath and increasing work of breathing found to have 1. Acute on chronic hypoxic respiratory failure secondary to acute COPD exacerbation 2. Acute COPD exacerbation 3. AFib with RVR currently on amiodarone drip 4. MRSA bacteremia 5. Suspected pneumonia 6. End-stage renal disease on hemodialysis 7. Chronic congestive heart failure with diastolic dysfunction -continue amiodarone drip, repeat blood cultures, continue IV antibiotics, infectious disease consultation -obtain 2D echo to rule out vegetation, cardiology consultation, nephrology consultation for dialysis. Plan discussed with: Patient, Son My Orders Orders - AGRLAND BLOUNT MD Procedure Category Date Status Time *Consult CONS 01/12/25 Transmitted / 16:40 * Belly Packer CONS 01/12/25 Transmitted Consult 17:11 Amiodarone PHA 01/13/25 In Process 360mg/200ml Premix 00:15 Vancomycin Per PHA 01/12/25 In Process Pharmacy 20:00 * Infectious Patricia- CONS 01/12/25 Transmitted Monse Jeffries 19:09 * Cardiology Consult CONS 5/9/25 Transmitted 19:14 Vancomycin 1gm/200ml PHA 01/13/25 In Process Pm 15:15 Complete Blood Count LAB 01/14/25 Verified 04:00 Creatinine LAB 01/14/25 Verified 04:00 Vancomycin,Random LAB 01/14/25 Verified 04:00 Mrsa Screen CRYSTAL 01/13/25 Logged 15:32 Date of Service: January 13, 2025 Billing Provider: GARLAND BLOUNT MD Common Visit Codes: NOT BILLABLE GARLAND BLOUNT MD January 13, 2025 16:15
[2025-01-13] MEDS: VANCOMYCIN 1GM/200ML PM 200 ML IV ONE (16:41)
--- NOTE | 2025-01-13 18:30 | DVHSR ---
APPROVED REPORT EXAM: LIMITED Two-dimensional and M-mode echocardiogram with Doppler and color Doppler. Blood Pressure: 107/[address] Iyer RISK FACTORS Obesity: Height: 6', Weight: 240 DIMENSIONS LVDd5.3 (3.8-5.7cm)LA (2D)4.6 (1.9-4.0cm)Aortic Root3.6 (2.0-3.7cm) LVDs3.7 (2.5-4.0cm)LA (MM) (1.9-4.0cm)Aortic Cusp Exc1.6 (1.5-2.0cm) EF (%) 55.0 (55-70%)Rt. Atrium5.7 (1.9-4.0cm)Asc. Aorta cm IVSd1.1 (0.7-1.1cm)RV (D) (1.8-2.4cm) PWd1.1 (0.7-1.1cm) Mitral Valve MitralMitral Stenosis E wave1.10m/sMV Mean GR.mmHg A wave0.50m/sMV Peak GR.mmHg E/A ratio2.22D MVAcm2 Aortic Valve Aortic ValveAortic Stenosis V10.80m/Lisette Mean GR.9mmHg V21.90m/Lisette Peak GR.16mmHg LVOT Diameter2.0 (1.8-2.4cm)Doppler AVA1.32cm2 Other Information Quality : Technically LimitedRhythm : Technically limited study due to patient position and body habitus. Conclusion MILD LVH AND MILD LV DIASTOLIC DYSFUNCTION MODERATELY DILATED LA LV EF IS 60% DYSKINESIS OF IVS MODERATELY DILATED RV AND RA RV DYSFUNCTION AND DILATATION OF RV IS SEEN AORTIC LEAFLETS ARE MODERATELY CALCIFIED AORTIC VALVE AREA IS 1.4 CM SQUARE MILD AORTIC STENOSIS NO EFFUSION
--- NOTE | 2025-01-13 23:07 | DVHPN2 ---
Progress Note - Dictate Date Seen: January 13, 2025 Medical Necessity Reason Pt with a Central, PICC or Fol: No Subjective Patient seen and examined at bedside. Remains on supplemental oxygen Overnight events reviewed. vital signs Vital Sign Date Time Temp Pulse Resp B/P (MAP) Pulse Ox O2 Delivery O2 Flow Rate FiO2 01/13/25 22:58 95 18 100 01/13/25 22:50 Nasal Cannula* 2 28 01/13/25 21:17 123/67 01/13/25 21:00 98.7 98.7 Total Intake and Output 01/12/25 01/12/25 01/13/25 15:00 23:00 07:00 Intake Total 100 ml 120 ml 0 ml Output Total 0 ml Balance 100 ml 120 ml 0 ml medications Current Medications Medications Dose Ordered Sig/Carmen Route Start Time Stop Time Status Last Admin Dose Admin Ceftriaxone Sodium 50 ml @ 100 mls/hr DAILY@09 IV 01/12/25 09:00 01/13/25 08:33 100 MLS/HR Multivit/Ca Carb/ B Cmplx/FA/Prenat 1 tab DAILY PO 01/12/25 10:00 01/13/25 08:25 1 TAB Sevelamer HCl 1,200 mg TIDWM PO 01/12/25 08:00 01/13/25 18:05 1,200 MG Famotidine 20 mg DAILY IV 01/12/25 10:00 01/13/25 08:32 20 MG Carvedilol 3.125 mg Q12HR PO 01/12/25 10:00 01/13/25 21:17 3.125 MG Atorvastatin Calcium 10 mg HS PO 01/12/25 22:00 01/13/25 21:15 10 MG Amiodarone HCl 200 mg DAILY PO 01/12/25 10:00 01/13/25 08:26 200 MG Apixaban 2.5 mg BID PO 01/12/25 10:00 01/13/25 21:15 2.5 MG Sodium Chloride 10 ml Q8HR IV 01/12/25 06:00 01/13/25 21:18 10 ML Acetaminophen/ Hydrocodone Bitart 1 tab Q4HP PRN PO 01/12/25 03:15 Ondansetron HCl 4 mg Q4HP PRN IV 01/12/25 03:15 Docusate Sodium 100 mg BIDPRN PRN PO 01/12/25 03:15 Acetaminophen 650 mg Q6HP PRN PO 01/12/25 03:15 01/12/25 17:45 650 MG Nitroglycerin 0.4 mg Q5MINP PRN SL 01/12/25 03:15 Morphine Sulfate 2 mg Q30M PRN IV 01/12/25 03:15 Ipratropium [place] 0.5 mg Q4HR NEB 01/12/25 14:00 01/13/25 22:50 0.5 MG Levalbuterol HCl 1.25 mg Q4HR NEB 01/12/25 14:00 01/13/25 22:50 1.25 MG Vancomycin HCl 0 ml @ 0 mls/hr UD IV 01/12/25 20:00 objective Gen.: Patient lying in bed in no apparent distress. On supplemental oxygen. Head: Normocephalic, atraumatic. Eyes: EOMI/PERRLA. Ears: Normal hearing. Normal anatomy. Neck/trachea: Trachea midline, supple. Nose: Normal external anatomy. Mouth: Moist mucous membranes. Chest: Decreased air entry bilaterally. No wheezing or rhonchi. Cardiovascular: Positive S1, positive S2. Regular rate and rhythm. Abdomen: Positive bowel sounds in all 4 quadrants. Soft, non-tender, non- distended. : Deferred. Rectal: Deferred. Skin: Warm, dry. Intact. Extremities: 2+ radial pulses bilaterally. No lower extremity edema. Neuro: Awake, alert, oriented x3. No gross motor or sensory deficits. Cranial nerves II through XII intact. Gait not assessed. laboratory and microbiology Laboratory Tests 01/13/25 06:31 Test 01/13/25 06:31 Range/Units Serum Glucose 116 H 74-106 mg/dL Assessment/Plan Impression: Acute hypoxic respiratory failure Dependence on supplemental oxygen Atrial fibrillation with rapid ventricular response End-stage renal disease, on hemodialysis Congestive heart failure Bacteremia with GPC in clusters Obesity BMI 32.6 Events: Remains on supplemental oxygen, 2 LPM NC Taper O2 as tolerated BiPAP from 10 PM to 6 AM. IV amiodarone Continue bronchodilators Continue antibiotics Monitor hemoglobin Accu-Cheks, ISS. Pepcid for GI prophylaxis Eliquis BID Labs and imaging reviewed. Rest of plan as noted below Plan: Supplemental oxygen Titrate to keep O2 sats above 92%. Continue bronchodilators. Continue antibiotics Follow up cultures HD per Nephrology Nephrology recs appreciated. Monitor renal function. Monitor electrolytes. Supplement as necessary. Monitor ins and outs. DVT prophylaxis. Prognosis: Poor given patient's multiple co-morbidities. Rest of plan per hospitalist and other consultants. Thank you, Dr. Iyer, for allowing me to participate in this patient's care. Further recommendations will depend on the patient's clinical course. Please do not hesitate to contact me if you have any questions or concerns. This medical document was created using an electronic medical record system with [employer] dictation system. Although these documentations are being carefully reviewed, there may still be some phonetic and typographical changes. The errors are purely typographical, due to imperfection on the software program, and do not reflect any compromise in the patient's medical care. Plan discussed with: Patient, Other (ALFIE Resendiz) JUANITO ADAMS MD January 13, 2025 23:07
--- NOTE | 2025-01-13 23:56 | DVHPN2 ---
Progress Note - Dictate Date Seen: January 13, 2025 Medical Necessity Reason Pt with a Central, PICC or Fol: No Subjective Patient was seen and evaluated in follow up. Patient is complaining of SOB. Patient is on 1 LPM NC. WBC 11.4, HGB 8.9, HCT 28.1, K 3.4, DATA ASSISTANT 4.13. Telemetry reviewed. vital signs Vital Sign Date Time Temp Pulse Resp B/P (MAP) Pulse Ox O2 Delivery O2 Flow Rate FiO2 01/13/25 11:49 81 18 100 01/13/25 11:41 Nasal Cannula 1.0 01/13/25 11:41 24 01/13/25 09:00 98.1 107/63 (78) 98.1 Total Intake and Output 01/12/25 01/12/25 01/13/25 15:00 23:00 07:00 Intake Total 100 ml 120 ml 0 ml Output Total 0 ml Balance 100 ml 120 ml 0 ml medications Current Medications Medications Dose Ordered Sig/Carmen Route Start Time Stop Time Status Last Admin Dose Admin Ceftriaxone Sodium 50 ml @ 100 mls/hr DAILY@09 IV 01/12/25 09:00 01/13/25 08:33 100 MLS/HR Multivit/Ca Carb/ B Cmplx/FA/Prenat 1 tab DAILY PO 01/12/25 10:00 01/13/25 08:25 1 TAB Sevelamer HCl 1,200 mg TIDWM PO 01/12/25 08:00 01/13/25 11:20 1,200 MG Famotidine 20 mg DAILY IV 01/12/25 10:00 01/13/25 08:32 20 MG Carvedilol 3.125 mg Q12HR PO 01/12/25 10:00 01/13/25 08:30 3.125 MG Atorvastatin Calcium 10 mg HS PO 01/12/25 22:00 01/12/25 22:51 10 MG Amiodarone HCl 200 mg DAILY PO 01/12/25 10:00 01/13/25 08:26 200 MG Apixaban 2.5 mg BID PO 01/12/25 10:00 01/13/25 08:25 2.5 MG Diagnostic Test (Pha) 1 strip ACHS 01/12/25 07:00 01/13/25 11:22 1 STRIP Insulin Human Regular ACHS SC 01/12/25 07:00 Dextrose 50 ml UD PRN IV 01/12/25 03:15 Sodium Chloride 10 ml Q8HR IV 01/12/25 06:00 01/13/25 06:15 10 ML Acetaminophen/ Hydrocodone Bitart 1 tab Q4HP PRN PO 01/12/25 03:15 Ondansetron HCl 4 mg Q4HP PRN IV 01/12/25 03:15 Docusate Sodium 100 mg BIDPRN PRN PO 01/12/25 03:15 Acetaminophen 650 mg Q6HP PRN PO 01/12/25 03:15 01/12/25 17:45 650 MG Nitroglycerin 0.4 mg Q5MINP PRN SL 01/12/25 03:15 Morphine Sulfate 2 mg Q30M PRN IV 01/12/25 03:15 Ipratropium [place] 0.5 mg Q4HR NEB 01/12/25 14:00 01/13/25 11:41 0.5 MG Levalbuterol HCl 1.25 mg Q4HR NEB 01/12/25 14:00 01/13/25 11:41 1.25 MG Vancomycin HCl 0 ml @ 0 mls/hr UD IV 01/12/25 20:00 objective GENERAL: Alert and oriented x 3. No acute distress.. EYES: PERRL, EOMI. Anicteric. HENT: Moist mucous membranes. LUNGS: Decreased breath sounds. CARDIOVASCULAR: Regular rate and rhythm. ABDOMEN: Soft, nontender and nondistended. EXTREMITIES: No edema. NEUROLOGIC: No focal neurological deficits. SKIN: Warm, dry. laboratory and microbiology Laboratory Tests 01/13/25 06:31 Test 01/13/25 06:31 Range/Units Serum Glucose 116 H 74-106 mg/dL Problem List Atrial fibrillation with RVR. Sepsis, unspecified organism. End-stage renal disease on hemodialysis. Generalized weakness. Assessment/Plan Continued all current supportive medical care. Echocardiogram. Morphine and [place] for pain management. Amiodarone. Eliquis. Lipitor. Coreg. Additional plan as per the hospital course. Plan discussed with: Patient ANASTASIYA KOLB MD January 13, 2025 13:23
[2025-01-14] VITALS (21 sets, daily range): BP systolic 100–132; BP diastolic 55–73; PULSE 85–117; RESP 16–24; TEMP 97.8–99.4; O2SAT 90–100
[2025-01-14 07:11] LABS: Basophils # (auto) 0.1 10 ^3/uL (0-0.2); Basophils % (auto) 0.6 % (0.0-2.0); Eosinophils # (auto) 0.7 10 ^3/uL (0-0.8); Eosinophils % (auto) 6.6 % (0.0-7.0); Hematocrit 26.1 % (41.0-53.0); Hemoglobin 8.5 g/dL (13.5-17.5); Lymphocytes # (auto) 0.6 10 ^3/uL (0.4-5.4); Lymphocytes % (auto) 5.7 % (10.0-50.0); Mean Corpuscular Hemoglobin 33.4 pg (28.0-32.0); Mean Corpuscular Hgb Conc. 32.7 g/dL (32.0-36.0); Mean Corpuscular Volume 102.1 fL (80.0-100.0); Monocytes # (auto) 1.3 10 ^3/uL (0-1.3); Monocytes % (auto) 11.5 % (0.0-12.0); Neutrophils # (auto) 8.2 10 ^3/uL (1.6-8.6); Neutrophils % (auto) 75.6 % (37.0-80.0); Platelet Count (auto) 209 10^3/uL (140-450); Red Blood Cells 2.55 10^6/uL (4.5-5.90); Red Cell Distribution Width 17.7 % (11.8-14.3); White Blood Cell 10.9 10^3/uL (4.4-10.8)
--- NOTE | 2025-01-14 09:28 | DVHPN2 ---
Progress Note Date Seen: January 14, 2025 Medical Necessity Reason Pt with a Central, PICC or Fol: No Subjective Patient reports: No new complaints Other Systems: Patient seen and examined by myself today in follow-up Objective vital signs Vital Sign Date Time Temp Pulse Resp B/P (MAP) Pulse Ox O2 Delivery O2 Flow Rate FiO2 01/14/25 06:40 104 18 100 01/14/25 06:40 Bi-pap/CPAP 01/14/25 06:40 40 40 01/14/25 05:00 98.2 109/64 (79) 98.2 01/13/25 22:50 2 Total Intake and Output 01/13/25 01/13/25 01/14/25 15:00 23:00 07:00 Intake Total 484 ml 1125 ml Balance 484 ml 1125 ml medications Current Medications Medications Dose Ordered Sig/Carmen Route Start Time Stop Time Status Last Admin Dose Admin Ceftriaxone Sodium 50 ml @ 100 mls/hr DAILY@09 IV 01/12/25 09:00 01/13/25 08:33 100 MLS/HR Multivit/Ca Carb/ B Cmplx/FA/Prenat 1 tab DAILY PO 01/12/25 10:00 01/13/25 08:25 1 TAB Sevelamer HCl 1,200 mg TIDWM PO 01/12/25 08:00 01/13/25 18:05 1,200 MG Famotidine 20 mg DAILY IV 01/12/25 10:00 01/13/25 08:32 20 MG Carvedilol 3.125 mg Q12HR PO 01/12/25 10:00 01/13/25 21:17 3.125 MG Atorvastatin Calcium 10 mg HS PO 01/12/25 22:00 01/13/25 21:15 10 MG Amiodarone HCl 200 mg DAILY PO 01/12/25 10:00 01/13/25 08:26 200 MG Apixaban 2.5 mg BID PO 01/12/25 10:00 01/13/25 21:15 2.5 MG Sodium Chloride 10 ml Q8HR IV 01/12/25 06:00 01/14/25 05:47 10 ML Acetaminophen/ Hydrocodone Bitart 1 tab Q4HP PRN PO 01/12/25 03:15 Ondansetron HCl 4 mg Q4HP PRN IV 01/12/25 03:15 Docusate Sodium 100 mg BIDPRN PRN PO 01/12/25 03:15 Acetaminophen 650 mg Q6HP PRN PO 01/12/25 03:15 01/12/25 17:45 650 MG Nitroglycerin 0.4 mg Q5MINP PRN SL 01/12/25 03:15 Morphine Sulfate 2 mg Q30M PRN IV 01/12/25 03:15 Ipratropium [place] 0.5 mg Q4HR NEB 01/12/25 14:00 01/14/25 06:40 0.5 MG Levalbuterol HCl 1.25 mg Q4HR NEB 01/12/25 14:00 01/14/25 06:40 1.25 MG Vancomycin HCl 0 ml @ 0 mls/hr UD IV 01/12/25 20:00 Examination: LUNGS:Normal, CVS:Normal, MSK:Normal laboratory and microbiology Laboratory Tests 01/14/25 06:40 01/13/25 06:31 Test 01/13/25 06:31 Range/Units Serum Glucose 116 H 74-106 mg/dL Microbiology Date/Time Source Procedure Growth Status 01/12/25 14:01 Nose MRSA Screen - Final Methicillin Resistant S.aureus Complete 01/11/25 21:52 Blood Blood Culture - Preliminary Resulted Problem List/Assessment/Plan Problem List/Assessment/Plan ESRD on hemodialysis Wednesday/Wednesday/Wednesday Acute hypoxic respiratory failure Acute COPD exacerbation Pneumonia AFib with RVR Lactic acidosis History of CVA Hypotension MRSA nares GERD Macrocytic anemia Recommendations Hemodialysis tomorrow Albumin 25% IV piggyback BUN hemodialysis Epogen 67069 subQ 3 times weekly Resume home medications Renal diet Midodrine 10 mg p.o. t.i.d. IV antibiotics Renal vitamins We will continue to follow Plan discussed with: Patient My Orders My Orders Orders - TISH CHOW MD Procedure Category Date Status Time Hemodialysis Orders ORDERS 01/15/25 Verified 07:00 Dialysis Nursing LULY 01/15/25 Verified Message 07:00 Heparin Sodium PHA 01/15/25 Verified (Porcine) 07:00 Heparin Sodium PHA 01/15/25 Verified (Porcine) 07:00 Sodium Chloride 0.9% PHA 01/15/25 Verified 07:00 Document Fluid Input LULY 01/15/25 Verified And Outpu 07:00 Retacrit 10,000unit PHA 01/15/25 Verified Sc Xone 21:00 Midodrine Tablet PHA 01/14/25 Verified (Proamatine Tablet) 12:00 TISH CHOW MD January 14, 2025 09:28
[2025-01-14] MEDS: MIDODRINE HCL 10 MG TAB PO SCH (13:02)
--- NOTE | 2025-01-14 14:55 | DVHPN2 ---
Subjective Patient was seen and evaluated by me feeling much better.. Changes from previous H/P or p: No Changes Eyes: No Pain, No Vision change, No Conjunctivae inflammation, No Eyelid inflammation, No Other, No Redness ENT: No Ear pain, No Ear discharge, No Nose pain, No Nose discharge, No Nose congestion, No Mouth pain, No Mouth swelling, No Throat pain, No Throat swelling, No Other Cardiovascular: No Chest Pain, No Palpitations, No Orthopnea, No Paroxysmal Noc. Dyspnea, No Edema, No Lt Headedness, No Other Respiratory: No Cough, No Dry; Shortness of breath; No SOB with excertion, No Wheezing, No Hemoptysis, No Pleuritic Pain, No Sputum, No Other Gastrointestinal: No Nausea, No Vomiting, No Abdominal Pain, No Diarrhea, No Constipation, No Melena, No Hematochezia, No Other Genitourinary: No Dysuria, No Frequency, No Incontinence, No Hematuria, No Retention, No Other Musculoskeletal: No other, No neck pain, No shoulder pain, No arm pain, No back pain, No hand pain, No leg pain, No foot pain Skin: No Rash, No Lesions, No Jaundice, No Bruising, No Other Objective Vitals Vital Signs Date Time Temp Pulse Resp B/P (MAP) Pulse Ox O2 Delivery O2 Flow Rate FiO2 01/14/25 14:03 99 20 100 01/14/25 12:26 129/76 01/14/25 10:25 Nasal Cannula 2.0 01/14/25 10:25 28 01/14/25 09:00 99.4 99.4 Intake/Output Intake and Output 01/14/25 07:00 Intake Total 1609 ml Balance 1609 ml Intake Oral 1168 ml IV Total 441 ml # Voids 1 # Bowel Movements 1 Exam HEENT pupils are reactive Neck is supple CV is S1-S2 regular rate and rhythm Respiratory diminished breath sounds bases with expiratory wheezing. 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 Medications Current Medications Medications Dose Ordered Sig/Carmen Route Start Time Stop Time Status Last Admin Dose Admin Ceftriaxone Sodium 50 ml @ 100 mls/hr DAILY@09 IV 01/12/25 09:00 01/14/25 11:26 100 MLS/HR Multivit/Ca Carb/ B Cmplx/FA/Prenat 1 tab DAILY PO 01/12/25 10:00 01/14/25 11:24 1 TAB Sevelamer HCl 1,200 mg TIDWM PO 01/12/25 08:00 01/14/25 13:02 1,200 MG Famotidine 20 mg DAILY IV 01/12/25 10:00 01/14/25 11:27 20 MG Carvedilol 3.125 mg Q12HR PO 01/12/25 10:00 01/14/25 11:26 3.125 MG Atorvastatin Calcium 10 mg HS PO 01/12/25 22:00 01/13/25 21:15 10 MG Amiodarone HCl 200 mg DAILY PO 01/12/25 10:00 01/14/25 11:25 200 MG Apixaban 2.5 mg BID PO 01/12/25 10:00 01/14/25 11:26 2.5 MG Sodium Chloride 10 ml Q8HR IV 01/12/25 06:00 01/14/25 05:47 10 ML Acetaminophen/ Hydrocodone Bitart 1 tab Q4HP PRN PO 01/12/25 03:15 Ondansetron HCl 4 mg Q4HP PRN IV 01/12/25 03:15 Docusate Sodium 100 mg BIDPRN PRN PO 01/12/25 03:15 Acetaminophen 650 mg Q6HP PRN PO 01/12/25 03:15 01/12/25 17:45 650 MG Nitroglycerin 0.4 mg Q5MINP PRN SL 01/12/25 03:15 Morphine Sulfate 2 mg Q30M PRN IV 01/12/25 03:15 Ipratropium [place] 0.5 mg Q4HR NEB 01/12/25 14:00 01/14/25 13:55 0.5 MG Levalbuterol HCl 1.25 mg Q4HR NEB 01/12/25 14:00 01/14/25 13:55 1.25 MG Vancomycin HCl 0 ml @ 0 mls/hr UD IV 01/12/25 20:00 Midodrine 10 mg TID@0600,1200,1800 PO 01/14/25 12:00 01/14/25 13:02 10 MG Laboratory Results Laboratory Tests 01/13/25 06:31 01/14/25 06:40 Microbiology Microbiology Date/Time Source Procedure Growth Status 01/13/25 15:20 Nose MRSA Screen - Final Methicillin Resistant S.aureus Complete 01/11/25 21:52 Blood Blood Culture - Final Methicillin Resistant S.aureus Complete Assessment/Plan Assessment/Plan 79-year-old male with a known history of end-stage renal disease on hemodialysis, chronic respiratory failure on home O2, COPD, congestive heart failure, chronic AFib, history of previous CVA, chronic anemia who initially presented to the hospital with the increasing shortness a breath and increasing work of breathing found to have 1. Acute on chronic hypoxic respiratory failure secondary to acute COPD exacerbation 2. Acute COPD exacerbation 3. AFib with RVR currently on amiodarone drip 4. MRSA bacteremia 5. Suspected pneumonia 6. End-stage renal disease on hemodialysis 7. Chronic congestive heart failure with diastolic dysfunction -discontinue amiodarone drip, start amiodarone p.o., repeat blood cultures, continue IV antibiotics, infectious disease consultation -obtain 2D echo to rule out vegetation, cardiology consultation, nephrology consultation for dialysis. -med nebs, O2 supplementation. -physical therapy evaluation and treatment. Plan discussed with: Patient My Orders Orders - GARLAND BLOUNT MD Procedure Category Date Status Time Blood Culture CRYSTAL 01/13/25 In Process 16:15 Date of Service: January 14, 2025 Billing Provider: GARLAND BLOUNT MD Common Visit Codes: NOT BILLABLE GARLAND BLOUNT MD January 14, 2025 14:55
--- NOTE | 2025-01-14 21:47 | DVHINCON2 ---
Date of service: January 14, 2025 Family History: Asthma G8 MOTHER, Onset:Unknown FH: cancer G8 FATHER Hypertension G8 FATHER Allergies: Coded Allergies: NO KNOWN ALLERGIES (Unverified , 03/08/18) Home Meds Active Scripts Aspirin (Aspir-Low) 81 Mg Tab, 81 MG PO DAILY, #60 TAB Prov:GARLAND BLOUNT MD 03/17/24 Atorvastatin Calcium (ATORVASTATIN CALCIUM) 20 Mg Tab, 1 TAB PO DAILY, #90 TAB 1 Refill Prov:TALA GODINEZ MD 08/04/23 Reported Medications Metoprolol Tartrate (LOPRESSOR TABLET) 50 Mg Tb, 1 TAB PO BID, #60 TAB 5 Refills 03/14/24 Pantoprazole Sodium Sesquihydr (Pantoprazole Sodium) 40 Mg Tab, 1 TAB PO DAILY 07/17/23 Apixaban Base (ELIQUIS) 2.5 Mg Tab, 1 TAB PO BID 07/17/23 Sevelamer Carbonate (Sevelamer Carbonate) 2.4 Gm Pow, 1 PKT PO TID 07/17/23 Current Medications Current Medications Medications (Trade) Dose Ordered Sig/Carmen Route PRN Reason Start Time Stop Time Status Last Admin Midodrine (Proamatine Tablet) 10 mg TID@0600,1200,1800 PO 01/14/25 12:00 01/14/25 17:22 Vital Signs Vital Signs Date Time Temp Pulse Resp B/P (MAP) Pulse Ox O2 Delivery O2 Flow Rate FiO2 01/14/25 21:00 97.9 85 20 132/63 (86) 90 97.9 01/14/25 20:00 Nasal Cannula* 3 32 Labs/Diagnostic Data Labs Test 01/14/25 06:40 01/13/25 11:22 01/13/25 06:31 01/12/25 11:12 Range/Units White Blood Count 10.9 H 4.4-10.8 10^3/uL Red Blood Count 2.55 L 4.5-5.90 10^6/uL Hemoglobin 8.5 L 13.5-17.5 g/dL Hematocrit 26.1 L 41.0-53.0 % Mean Corpuscular Volume 102.1 H 80.0-100.0 fL Mean Corpuscular Hemoglobin 33.4 H 28.0-32.0 pg Mean Corpuscular Hemoglobin Concent 32.7 32.0-36.0 g/dL Red Cell Distribution Width 17.7 H 11.8-14.3 % Platelet Count 209 140-450 10^3/uL Mean Platelet Volume 7.4 6.9-10.8 fL Neutrophils (%) (Auto) 75.6 37.0-80.0 % Lymphocytes (%) (Auto) 5.7 L 10.0-50.0 % Monocytes (%) (Auto) 11.5 0.0-12.0 % Eosinophils (%) (Auto) 6.6 0.0-7.0 % Basophils (%) (Auto) 0.6 0.0-2.0 % Neutrophils # (Auto) 8.2 1.6-8.6 10 ^3/uL Lymphocytes # (Auto) 0.6 0.4-5.4 10 ^3/uL Monocytes # (Auto) 1.3 0-1.3 10 ^3/uL Eosinophils # (Auto) 0.7 0-0.8 10 ^3/uL Basophils # (Auto) 0.1 0-0.2 10 ^3/uL Nucleated Red Blood Cells 0.0 % Creatinine 5.45 H 0.700-1.30 mg/dL Glomerular Filtration Rate Calc 10 >90 mL/min Random Vancomycin Level 22.2 H 5-10 ug/mL POC Glucose 127 H 70-106 mg/dl Sodium Level 138 136-145 mmol/L Potassium Level 3.4 L 3.5-5.1 mmol/L Chloride Level 100 98-107 mmol/L Carbon Dioxide Level 25 20-31 mmol/L Anion Gap 13 5-15 Blood Urea Nitrogen 21 # 9-23 mg/dL BUN/Creatinine Ratio 5.1 L 10.0-20.0 Serum Glucose 116 H 74-106 mg/dL Hemoglobin A1c < 3.8 <5.7 % A1C Calcium Level 8.8 8.7-10.4 mg/dL Total Bilirubin 0.4 0.2-1.0 mg/dL Aspartate Amino Transferase (AST) 14 13-40 U/L Alanine Aminotransferase (ALT) 10 7-40 U/L Alkaline Phosphatase 114 46-116 U/L Total Protein 6.4 5.7-8.2 g/dL Albumin 3.4 3.2-4.8 g/dL Lactic Acid Level 2.1 *H 0.4-2.0 mmol/L Test 01/12/25 04:58 01/11/25 23:30 01/11/25 21:09 01/11/25 20:38 Range/Units Phosphorus Level 3.0 2.4-5.1 mg/dL Vitamin D 25-Hydroxy 58.1 30.0-100 ng/mL Parathyroid Hormone (Intact) 294.4 H 18.4-80.1 pg/mL Hepatitis B Surface Antigen Negative Negative Influenza Type A Antigen Negative Negative Influenza Type B Antigen Negative Negative SARS-CoV-2 Antigen (Rapid) Negative NEGATIVE Troponin I High Sensitivity 17 </=54 ng/L B-Type Natriuretic Peptide 175.50 0-100 pg/mL Blood Gas Specimen Type Arterial Blood Gas Sample Site Left radial Blood Gas Patient Temperature 37.0 Arterial Blood Date Drawn [id number] Arterial Blood pH 7.415 7.350-7.450 Arterial Blood Partial Pressure CO2 47.5 35.0-48.0 mmHg Arterial Blood Partial Pressure O2 134.3 H 83.0-108.0 mmHg Arterial Blood HCO3 29.8 H 21.0-28.0 mmol/L Arterial Blood Oxygen Saturation 99.2 H 94.0-98.0 % Arterial Blood Base Excess 4.5 H -2.0-3.0 mmol/L Arterial Blood Oxyhemoglobin 98.0 94.0-98.0 % Arterial Blood Carboxyhemoglobin 0.7 0.5-1.5 % Arterial Blood Methemoglobin 0.5 0.0-1.5 % Cornelio Test Yes Blood Gas Total Hemoglobin 10.40 L 13.5-17.5 g/dL Blood Gas Liter Flow 15.00 Blood Gas Modality Mask - nrb FiO2 % 100.0 Microbiology Date/Time Source Procedure Growth Status 01/13/25 16:52 Blood Blood Culture - Preliminary NO GROWTH AFTER 24 HOURS OF INCUBATION. Resulted 01/13/25 15:20 Nose MRSA Screen - Final Methicillin Resistant S.aureus Complete Problems(with codes): (1) MRSA (methicillin resistant Staphylococcus aureus) septicemia (2) Leukocytosis (3) Syncope (4) Weakness (5) ESRD (end stage renal disease) on dialysis (6) Altered mental status (7) Atrial fibrillation with RVR Plan/Recommendation ASSESSMENT AND PLAN: ID Problem List: - Catheter-associated MRSA bacteremia - Severe sepsis - End-stage renal disease on hemodialysis - History of stroke with left-sided deficits (also noted as right-sided deficits in parts of transcript; clarify later if needed) COPD - Diabetes mellitus - Hypertension - Congestive heart failure Assessment: Mr. 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 On admission, laboratory findings were significant for leukocytosis (WBC 15.1), Hct 10.8, platelets 207, sodium 139, BUN 27, creatinine 4.64, glucose 101, and lactic acid 2.4. Physical examination notes obesity and left chest wall dialysis catheter site tenderness. The patient developed hypotension (BP decreased from 174/94 to 98/54) and tachycardia (HR 121 improved to 78 post-fluid bolus), as well as hypoxemia (SpO2 79% on 6L NC) with tachypnea (RR 32). Blood cultures returned positive for MRSA in 4/4 bottles (drawn 01/11 and 01/12); subsequent cultures after catheter removal have been negative for >72 hours as of 01/13. Chest imaging notes removal of the right internal jugular central line, placement of hemodialysis catheter in the left chest wall with tip in distal SVC, and mildly prominent bronchovascular markings left perihilar lobe. No acute/clear evidence of pulmonary infiltrate. Echocardiogram was limited by body habitus but showed aortic stenosis (valve area 1.4 cm), dyskinesis of interventricular septum, mild LVH, mild left ventricular diastolic dysfunction, and mildly dilated right-sided chambers. Plan: - Continue intravenous vancomycin; patient appears to be responding well - Catheter removal has been performed; plan to replace dialysis line after ?72 hours of negative blood cultures - Once negative cultures maintained for at least 72 hours, initiate a 46 week course of IV vancomycin - Transesophageal echocardiogram (ANGEL) is planned to rule out endocarditis, as t ransthoracic study was inconclusive and suspicion remains elevated - Monitor daily blood cultures until negative clearance confirmed - Monitor for clinical stability and resolution of sepsis - Dialysis to continue per // schedule; ensure line access as above - No evidence of pulmonary infection or viral etiologies (Flu A, Flu B, COVID-19 all negative) - Supportive care including oxygen and fluid management as needed Isolation Precautions: Standard Assessment and plan discussed with patient. Plan subject to change based on new clinical/laboratory/imaging information. Updates will be provided as an addendum. Thank you for the consult. Infectious Diseases will continue to follow. Please contact with further questions or developments. Rg Jeffries M.D. [facility] Ph: ? History: The patient's chart and medications were reviewed in detail, and the patient was seen and examined. History obtained from: patient/chart. Mr. Aguirre is a 79-year-old male with end-stage renal disease (on hemodialysis), COPD, diabetes, hypertension, CHF, and prior stroke with residual neurologic deficits, who presented with shortness of breath, cough, and generalized weakness following recent dialysis. Patient reports tenderness at the dialysis catheter site and recurrent fatigue after sessions. No reported history of smoking, alcohol, or IV drug use. He resides in a [facility]. Review of Systems: A full ten-system review was attempted; details as follows or per the HPI above. - CONSTITUTIONAL: Reports weakness. No report of fever/chills/weight loss. - HEENT: Not discussed. - RESPIRATORY: Reports shortness of breath and cough. - CARDIOVASCULAR: No chest pain or palpitations discussed. - GI: Not discussed. - : Not discussed. - MSK: Not discussed. - SKIN: Tenderness at dialysis catheter site. - NEUROLOGICAL: Reports residual deficits (left/right sided) from prior stroke. No headache or syncope discussed. - PSYCHIATRIC: Not discussed. Past Medical History: - Chronic obstructive pulmonary disease (COPD) - Diabetes mellitus - Hypertension - Congestive heart failure (CHF) - End-stage renal disease, on hemodialysis (M/W/F) - History of stroke with residual deficits Past Surgical History: Not provided in transcript. Home Medications: Not provided in transcript. Allergies: No known drug allergies. Family History: Not provided in transcript. Social History: - Resides in a [facility] - Never smoker - Denies alcohol use - Denies illicit drug use - No IV drug use Objective: Vital Signs on Arrival: - Temperature: 98.9 F - Pulse: 78 - Respiratory Rate: 32 - Blood Pressure: 98/156 (noted range from 174/94 down to 98/54) - SpO2: 79% on 6L nasal cannula Physical Exam: General: NAD Neck: Supple. No masses. HEENT: PERRL. Normal lids and conjunctiva. Moist mucous membranes. Oropharynx without lesions, exudates or excessive erythema. Normal appearance of the external aspects of the nose and ears. Heart: Regular rhythm, normal rate. No murmur. No lower extremity edema. Lungs: Normal respiratory effort. Clear to auscultation bilaterally. No wheezes. No crackles. Abdomen: Soft. Non-tender. Non-distended. No masses or abdominal hernia. Msk: No digital cyanosis. Normal strength and tone in all 4 limbs. Skin: Warm and dry, no rashes. Tenderness at left chest wall dialysis catheter site. Neuro: Alert. No facial droop or slurred speech. Extra-ocular movements intact. Sensation intact to soft touch in all 4 limbs. Chronic left/right-sided defi cits. Psych: Appropriate mood. Full affect. Oriented to person, place, time, and situation. Lines: Dialysis catheter present in left chest wall (tip in distal SVC). Right internal jugular catheter removed. Diagnostic Studies: Available studies reviewed as summarized below. Pertinent Imaging: - Chest X-ray: Removal of right internal jugular central venous catheter; left chest wall hemodialysis catheter with tip in distal SVC. Mildly prominent bronchovascular markings left perihilar lobe. No acute findings. - Echocardiogram: Limited by body habitus; moderately calcified aortic valve (area 1.4 cm, mild aortic stenosis), dyskinesis of interventricular septum, mildly dilated right atrium/ventricle, mild LVH, mild LV diastolic dysfunction. - Laboratory Data: WBC 15.1 (improved to 10.9 on repeat), Hct 10.8, platelets 207, sodium 139, BUN 27, creatinine 4.64, glucose 101, lactic acid 2.4. - Microbiology: Blood cultures positive for MRSA (4/4 bottles, 01/11 and 01/12), negative after 72 hours on 01/13. - Virology: Influenza A/B and COVID-19 all negative. Plan discussed with: Patient RG JEFFRIES MD January 14, 2025 21:47
--- NOTE | 2025-01-14 22:57 | DVHPN2 ---
Progress Note - Dictate Date Seen: January 14, 2025 Medical Necessity Reason Pt with a Central, PICC or Fol: No Subjective Patient was seen and evaluated in follow up. No overnight events. Patient remains on 2 LPM NC. WBC 10.9, HGB 8.5, HCT 26.1, SOCIAL SERVICE LIAISON 5.45. Telemetry reviewed. vital signs Vital Sign Date Time Temp Pulse Resp B/P (MAP) Pulse Ox O2 Delivery O2 Flow Rate FiO2 01/14/25 14:03 99 20 100 01/14/25 13:00 98.0 121/69 (86) 98.0 01/14/25 10:25 Nasal Cannula 2.0 01/14/25 10: 28 Total Intake and Output 01/13/25 01/13/25 01/14/25 15:00 23:00 07:00 Intake Total 484 ml 1125 ml Balance 484 ml 1125 ml medications Current Medications Medications Dose Ordered Sig/Carmen Route Start Time Stop Time Status Last Admin Dose Admin Ceftriaxone Sodium 50 ml @ 100 mls/hr DAILY@09 IV 01/12/25 09:00 01/14/25 11:26 100 MLS/HR Multivit/Ca Carb/ B Cmplx/FA/Prenat 1 tab DAILY PO 01/12/25 10:00 01/14/25 11:24 1 TAB Sevelamer HCl 1,200 mg TIDWM PO 01/12/25 08:00 01/14/25 13:02 1,200 MG Famotidine 20 mg DAILY IV 01/12/25 10:00 01/14/25 11:27 20 MG Carvedilol 3.125 mg Q12HR PO 01/12/25 10:00 01/14/25 11:26 3.125 MG Atorvastatin Calcium 10 mg HS PO 01/12/25 22:00 01/13/25 21:15 10 MG Amiodarone HCl 200 mg DAILY PO 01/12/25 10:00 01/14/25 11:25 200 MG Apixaban 2.5 mg BID PO 01/12/25 10:00 01/14/25 11:26 2.5 MG Sodium Chloride 10 ml Q8HR IV 01/12/25 06:00 01/14/25 05:47 10 ML Acetaminophen/ Hydrocodone Bitart 1 tab Q4HP PRN PO 01/12/25 03:15 Ondansetron HCl 4 mg Q4HP PRN IV 01/12/25 03:15 Docusate Sodium 100 mg BIDPRN PRN PO 01/12/25 03:15 Acetaminophen 650 mg Q6HP PRN PO 01/12/25 03:15 01/12/25 17:45 650 MG Nitroglycerin 0.4 mg Q5MINP PRN SL 01/12/25 03:15 Morphine Sulfate 2 mg Q30M PRN IV 01/12/25 03:15 Ipratropium [place] 0.5 mg Q4HR NEB 01/12/25 14:00 01/14/25 13:55 0.5 MG Levalbuterol HCl 1.25 mg Q4HR NEB 01/12/25 14:00 01/14/25 13:55 1.25 MG Vancomycin HCl 0 ml @ 0 mls/hr UD IV 01/12/25 20:00 Midodrine 10 mg TID@0600,1200,1800 PO 01/14/25 12:00 01/14/25 13:02 10 MG objective GENERAL: Alert and oriented x 3. No acute distress.. EYES: PERRL, EOMI. Anicteric. HENT: Moist mucous membranes. LUNGS: Decreased breath sounds. CARDIOVASCULAR: Regular rate and rhythm. ABDOMEN: Soft, nontender and nondistended. EXTREMITIES: No edema. NEUROLOGIC: No focal neurological deficits. SKIN: Warm, dry. laboratory and microbiology Laboratory Tests 01/14/25 06:40 01/13/25 06:31 Test 01/13/25 06:31 Range/Units Serum Glucose 116 H 74-106 mg/dL Problem List Atrial fibrillation with RVR. Sepsis, unspecified organism. End-stage renal disease on hemodialysis. Generalized weakness. Assessment/Plan Continued all current supportive medical care. Echocardiogram. Morphine and [place] for pain management. Amiodarone. Eliquis. Lipitor. Coreg. Additional plan as per the hospital course. Plan discussed with: Patient ANASTASIYA KOLB MD January 14, 2025 15:29
--- NOTE | 2025-01-14 23:00 | DVHPN2 ---
Progress Note - Dictate Date Seen: January 14, 2025 Medical Necessity Reason Pt with a Central, PICC or Fol: No Subjective Patient seen and examined at bedside. Remains on supplemental oxygen Overnight events reviewed. vital signs Vital Sign Date Time Temp Pulse Resp B/P (MAP) Pulse Ox O2 Delivery O2 Flow Rate FiO2 01/14/25 22:28 85 132/63 01/14/25 21:53 96 Room Air 0.0 01/14/25 21:53 21 01/14/25 21:53 20 01/14/25 21:00 97.9 97.9 Total Intake and Output 01/13/25 01/13/25 01/14/25 15:00 23:00 07:00 Intake Total 484 ml 1125 ml Balance 484 ml 1125 ml medications Current Medications Medications Dose Ordered Sig/Carmen Route Start Time Stop Time Status Last Admin Dose Admin Ceftriaxone Sodium 50 ml @ 100 mls/hr DAILY@09 IV 01/12/25 09:00 01/14/25 11:26 100 MLS/HR Multivit/Ca Carb/ B Cmplx/FA/Prenat 1 tab DAILY PO 01/12/25 10:00 01/14/25 11:24 1 TAB Sevelamer HCl 1,200 mg TIDWM PO 01/12/25 08:00 01/14/25 17:20 1,200 MG Famotidine 20 mg DAILY IV 01/12/25 10:00 01/14/25 11:27 20 MG Carvedilol 3.125 mg Q12HR PO 01/12/25 10:00 01/14/25 22:28 3.125 MG Atorvastatin Calcium 10 mg HS PO 01/12/25 22:00 01/14/25 22:27 10 MG Amiodarone HCl 200 mg DAILY PO 01/12/25 10:00 01/14/25 11:25 200 MG Apixaban 2.5 mg BID PO 01/12/25 10:00 01/14/25 22:27 2.5 MG Sodium Chloride 10 ml Q8HR IV 01/12/25 06:00 01/14/25 22:28 10 ML Acetaminophen/ Hydrocodone Bitart 1 tab Q4HP PRN PO 01/12/25 03:15 Ondansetron HCl 4 mg Q4HP PRN IV 01/12/25 03:15 Docusate Sodium 100 mg BIDPRN PRN PO 01/12/25 03:15 Acetaminophen 650 mg Q6HP PRN PO 01/12/25 03:15 01/12/25 17:45 650 MG Nitroglycerin 0.4 mg Q5MINP PRN SL 01/12/25 03:15 Morphine Sulfate 2 mg Q30M PRN IV 01/12/25 03:15 Ipratropium [place] 0.5 mg Q4HR NEB 01/12/25 14:00 01/14/25 21:53 0.5 MG Levalbuterol HCl 1.25 mg Q4HR NEB 01/12/25 14:00 01/14/25 21:53 1.25 MG Vancomycin HCl 0 ml @ 0 mls/hr UD IV 01/12/25 20:00 Midodrine 10 mg TID@0600,1200,1800 PO 01/14/25 12:00 01/14/25 17:22 10 MG objective Gen.: Patient lying in bed in no apparent distress. On supplemental oxygen. Head: Normocephalic, atraumatic. Eyes: EOMI/PERRLA. Ears: Normal hearing. Normal anatomy. Neck/trachea: Trachea midline, supple. Nose: Normal external anatomy. Mouth: Moist mucous membranes. Chest: Decreased air entry bilaterally. No wheezing or rhonchi. Cardiovascular: Positive S1, positive S2. Regular rate and rhythm. Abdomen: Positive bowel sounds in all 4 quadrants. Soft, non-tender, non- distended. : Deferred. Rectal: Deferred. Skin: Warm, dry. Intact. Extremities: 2+ radial pulses bilaterally. No lower extremity edema. Neuro: Awake, alert, oriented x3. No gross motor or sensory deficits. Cranial nerves II through XII intact. Gait not assessed. laboratory and microbiology Laboratory Tests 01/14/25 06:40 01/13/25 06:31 Test 01/13/25 06:31 Range/Units Serum Glucose 116 H 74-106 mg/dL Assessment/Plan Impression: Acute hypoxic respiratory failure Dependence on supplemental oxygen Atrial fibrillation with rapid ventricular response End-stage renal disease, on hemodialysis Congestive heart failure Bacteremia with GPC in clusters Obesity BMI 32.6 Events: Remains on supplemental oxygen, 2 LPM NC Taper O2 as tolerated BiPAP from 10 PM to 6 AM. Transitioned to PO amiodarone Continue bronchodilators Continue antibiotics Positive blood cultures - MRSA ID recommendations appreciated. Monitor hemoglobin Pepcid for GI prophylaxis Eliquis BID HD per Nephrology Follow up Nephro recs. Labs and imaging reviewed. Rest of plan as noted below Plan: Supplemental oxygen Titrate to keep O2 sats above 92%. Continue bronchodilators. Continue antibiotics Follow up cultures Accu-Cheks, ISS HD per Nephrology Nephrology recs appreciated. Monitor renal function. Monitor electrolytes. Supplement as necessary. Monitor ins and outs. DVT prophylaxis. Prognosis: Poor given patient's multiple co-morbidities. Rest of plan per hospitalist and other consultants. Thank you, Dr. Iyer, for allowing me to participate in this patient's care. Further recommendations will depend on the patient's clinical course. Please do not hesitate to contact me if you have any questions or concerns. This medical document was created using an electronic medical record system with [employer] dictation system. Although these documentations are being carefully reviewed, there may still be some phonetic and typographical changes. The errors are purely typographical, due to imperfection on the software program, and do not reflect any compromise in the patient's medical care. Plan discussed with: Patient, Other (ALFIE Peña) JUANITO ADAMS MD January 14, 2025 23:00
[2025-01-15] VITALS (21 sets, daily range): BP systolic 112–125; BP diastolic 56–82; PULSE 75–91; RESP 16–22; TEMP 97.4–98; O2SAT 94–100
[2025-01-15] MEDS: SODIUM CHL 0.9% 1000 ML BAG XX ONE (07:00)
--- NOTE | 2025-01-15 14:05 | DVHPN2 ---
Progress Note Date Seen: January 15, 2025 Resident Creating Document: [place] RESIDENT Medical Necessity Reason Pt with a Central, PICC or Fol: No Subjective Review of Systems Mr. Muñoz is a 79-year-old male with PMHx AFib on Eliquis, ESRD on hemodialysis with [facility] nephro Wednesday/Wednesday/Wednesday for the past 2 years, COPD not on home oxygen, history of stroke twice last 09/2023, denies diabetes mellitus, hypertension who presented to the ER with a chief complaint of shortness of breaths and generalized weakness. Patient is A&O x3, reports experiencing flu-like symptoms including fever, chills, generalized weakness and body ache for the past 3 weeks. He has been experiencing worsening shortness of breaths especially on exertion associated with sore throat and congestion, can not cough up the phlegm. Patient denies orthopnea, PND, chest pain, palpitations. Last hemodialysis session was on Wednesday per patient Patient reports making urine PMHx: AFib on Eliqu, ESRD on hemodialysis with [facility] nephro Wednesday/Wednesday/Wednesday for the past 2 years, COPD not on home oxygen, history of stroke twice last 09/2023, denies diabetes mellitus, hypertension Social history: Lives alone, does not have a caregiver, quit smoking more than 15 years back, previously heavy smoker, denies drinking or illicit drug use Home medications: Eliquis 2.5 mg b.i.d., aspirin, atorvastatin, metoprolol tartrate 50 mg, pantoprazole, sevelamer TID Patient seen and examined the bedside. Left subclavian tunneled cath draining purulent material, IR consulted for removal. Objective vital signs Vital Sign Date Time Temp Pulse Resp B/P (MAP) Pulse Ox O2 Delivery O2 Flow Rate FiO2 01/15/25 13:55 75 17 100 01/15/25 13:47 Nasal Cannula 2.0 01/15/25 13:47 28 01/15/25 11:04 119/67 01/15/25 09:00 97.4 97.4 Total Intake and Output 01/14/25 01/14/25 01/15/25 15:00 23:00 07:00 Intake Total 890 ml 360 ml 280 ml Balance 890 ml 360 ml 280 ml medications Current Medications Medications Dose Ordered Sig/Carmen Route Start Time Stop Time Status Last Admin Dose Admin Ceftriaxone Sodium 50 ml @ 100 mls/hr DAILY@09 IV 01/12/25 09:00 01/15/25 08:47 100 MLS/HR Multivit/Ca Carb/ B Cmplx/FA/Prenat 1 tab DAILY PO 01/12/25 10:00 01/15/25 08:54 1 TAB Sevelamer HCl 1,200 mg TIDWM PO 01/12/25 08:00 01/15/25 12:19 1,200 MG Famotidine 20 mg DAILY IV 01/12/25 10:00 01/15/25 08:48 20 MG Carvedilol 3.125 mg Q12HR PO 01/12/25 10:00 01/15/25 08:55 3.125 MG Atorvastatin Calcium 10 mg HS PO 01/12/25 22:00 01/14/25 22:27 10 MG Amiodarone HCl 200 mg DAILY PO 01/12/25 10:00 01/15/25 08:54 200 MG Apixaban 2.5 mg BID PO 01/12/25 10:00 01/15/25 08:54 2.5 MG Sodium Chloride 10 ml Q8HR IV 01/12/25 06:00 01/14/25 22:28 10 ML Acetaminophen/ Hydrocodone Bitart 1 tab Q4HP PRN PO 01/12/25 03:15 Ondansetron HCl 4 mg Q4HP PRN IV 01/12/25 03:15 Docusate Sodium 100 mg BIDPRN PRN PO 01/12/25 03:15 Acetaminophen 650 mg Q6HP PRN PO 01/12/25 03:15 01/12/25 17:45 650 MG Nitroglycerin 0.4 mg Q5MINP PRN SL 01/12/25 03:15 Morphine Sulfate 2 mg Q30M PRN IV 01/12/25 03:15 Ipratropium [place] 0.5 mg Q4HR NEB 01/12/25 14:00 01/15/25 13:47 0.5 MG Levalbuterol HCl 1.25 mg Q4HR NEB 01/12/25 14:00 01/15/25 13:47 1.25 MG Vancomycin HCl 0 ml @ 0 mls/hr UD IV 01/12/25 20:00 Midodrine 10 mg TID@0600,1200,1800 PO 01/14/25 12:00 01/15/25 12:19 10 MG Examination Obese male patient lying in the bed, mild cough General: Obese, afebrile,, mucosae are moist Cardiovascular: Regular S1 and S2. No murmurs, gallops or rubs. No JVD elevation. 1+ bilateral pedal edema pitting Respiratory: Decreased bilateral air entry on nasal cannula supplementation Abdomen: Soft, nontender, nondistended, normoactive bowel sounds, no rebound tenderness, no organomegaly, no masses Genitourinary: Deferred MSK/skin: Mobilizes 4 limbs. Skin is dry and warm Psych/Mental Status: A/Ox3 laboratory and microbiology Laboratory Tests 01/14/25 06:40 01/13/25 06:31 Test 01/13/25 06:31 Range/Units Serum Glucose 116 H 74-106 mg/dL Microbiology Date/Time Source Procedure Growth Status 01/13/25 16:52 Blood Blood Culture - Preliminary NO GROWTH AFTER 24 HOURS OF INCUBATION. Resulted 01/13/25 15:20 Nose MRSA Screen - Final Methicillin Resistant S.aureus Complete Labs and/or images reviewed: Labs reviewed by me, Image(s) reviewed by me Problem List/Assessment/Plan Problem List/Assessment/Plan ESRD on hemodialysis Wednesday/Wednesday/Wednesday Likely infected tunneled catheter MRSA bacteremia Macrocytic Anemia, likely secondary to ESRD Acute hypoxic respiratory failure Acute COPD exacerbation secondary to probable pneumonia Probable sepsis secondary to pneumonia Paroxysmal Atrial fibrillation-on Eliquis-currently sinus Lactic acidosis History of CVA History of diabetes-patient denies Hypertension GERD Plan: Patient underwent hemodialysis 01/12, hemodialysis planned for today. IR consulted for removal of the left tunneled catheter 01/11 blood culture showing MRSA, 01/13 prelim negative, blood cultures ordered 01/15 Continue midodrine 10 mg TID Consider daily blood cultures, reconsider putting a new tunneled catheter for hemodialysis once 3 consecutive blood cultures have been negative for 3 consecutive days Continue IV vancomycin and ceftriaxone Continue sevelamer t.i.d. Plan discussed with patient in which all questions have been answered Case discussed with Dr. Gipson Addendum Patient seen and examined, plan discussed with resident. Agree with above, we will follow closely Plan discussed with: Patient My Orders My Orders Orders - [place] RESIDENT Procedure Category Date Status Time Blood Culture CRYSTAL 01/15/25 Logged 13:01 [place] RESIDENT January 15, 2025 14:05 MAHESH GIPSON MD January 15, 2025 15:27
[2025-01-15] MEDS: LIDOCAINE 2%HCL (LOCAL ANESTH.) INJ 10ml MDV ONE (14:37)
--- NOTE | 2025-01-15 16:28 | DVHPN2 ---
Subjective Patient was seen and evaluated by me feeling much better. Currently getting hemodialysis. Changes from previous H/P or p: No Changes Eyes: No Pain, No Vision change, No Conjunctivae inflammation, No Eyelid inflammation, No Other, No Redness ENT: No Ear pain, No Ear discharge, No Nose pain, No Nose discharge, No Nose congestion, No Mouth pain, No Mouth swelling, No Throat pain, No Throat swelling, No Other Cardiovascular: No Chest Pain, No Palpitations, No Orthopnea, No Paroxysmal Noc. Dyspnea, No Edema, No Lt Headedness, No Other Respiratory: No Cough, No Dry; Shortness of breath; No SOB with excertion, No Wheezing, No Hemoptysis, No Pleuritic Pain, No Sputum, No Other Gastrointestinal: No Nausea, No Vomiting, No Abdominal Pain, No Diarrhea, No Constipation, No Melena, No Hematochezia, No Other Genitourinary: No Dysuria, No Frequency, No Incontinence, No Hematuria, No Retention, No Other Musculoskeletal: No other, No neck pain, No shoulder pain, No arm pain, No back pain, No hand pain, No leg pain, No foot pain Skin: No Rash, No Lesions, No Jaundice, No Bruising, No Other Objective Vitals Vital Signs Date Time Temp Pulse Resp B/P (MAP) Pulse Ox O2 Delivery O2 Flow Rate FiO2 01/15/25 13:55 75 17 100 01/15/25 13:47 Nasal Cannula 2.0 01/15/25 13:47 28 01/15/25 13:00 97.9 114/62 (79) 97.9 Intake/Output Intake and Output 01/15/25 07:00 Intake Total 1530 ml Balance 1530 ml Intake Oral 1480 ml IV Total 50 ml # Voids 5 # Bowel Movements 3 Exam HEENT pupils are reactive Neck is supple CV is S1-S2 regular rate and rhythm Respiratory diminished breath sounds bases with expiratory wheezing. GI positive bowel sound Extremity no edema [employer] no motor deficit Medications Current Medications Medications Dose Ordered Sig/Carmen Route Start Time Stop Time Status Last Admin Dose Admin Ceftriaxone Sodium 50 ml @ 100 mls/hr DAILY@09 IV 01/12/25 09:00 01/15/25 08:47 100 MLS/HR Multivit/Ca Carb/ B Cmplx/FA/Prenat 1 tab DAILY PO 01/12/25 10:00 01/15/25 08:54 1 TAB Sevelamer HCl 1,200 mg TIDWM PO 01/12/25 08:00 01/15/25 12:19 1,200 MG Famotidine 20 mg DAILY IV 01/12/25 10:00 01/15/25 08:48 20 MG Carvedilol 3.125 mg Q12HR PO 01/12/25 10:00 01/15/25 08:55 3.125 MG Atorvastatin Calcium 10 mg HS PO 01/12/25 22:00 01/14/25 22:27 10 MG Amiodarone HCl 200 mg DAILY PO 01/12/25 10:00 01/15/25 08:54 200 MG Apixaban 2.5 mg BID PO 01/12/25 10:00 01/15/25 08:54 2.5 MG Sodium Chloride 10 ml Q8HR IV 01/12/25 06:00 01/14/25 22:28 10 ML Acetaminophen/ Hydrocodone Bitart 1 tab Q4HP PRN PO 01/12/25 03:15 Ondansetron HCl 4 mg Q4HP PRN IV 01/12/25 03:15 Docusate Sodium 100 mg BIDPRN PRN PO 01/12/25 03:15 Acetaminophen 650 mg Q6HP PRN PO 01/12/25 03:15 01/12/25 17:45 650 MG Nitroglycerin 0.4 mg Q5MINP PRN SL 01/12/25 03:15 Morphine Sulfate 2 mg Q30M PRN IV 01/12/25 03:15 Ipratropium [place] 0.5 mg Q4HR NEB 01/12/25 14:00 01/15/25 13:47 0.5 MG Levalbuterol HCl 1.25 mg Q4HR NEB 01/12/25 14:00 01/15/25 13:47 1.25 MG Vancomycin HCl 0 ml @ 0 mls/hr UD IV 01/12/25 20:00 Midodrine 10 mg TID@0600,1200,1800 PO 01/14/25 12:00 01/15/25 12:19 10 MG Laboratory Results Laboratory Tests 01/13/25 06:31 01/14/25 06:40 Microbiology Microbiology Date/Time Source Procedure Growth Status 01/13/25 16:52 Blood Blood Culture - Preliminary NO GROWTH AFTER 24 HOURS OF INCUBATION. Resulted 01/13/25 15:20 Nose MRSA Screen - Final Methicillin Resistant S.aureus Complete Assessment/Plan Assessment/Plan 79-year-old male with a known history of end-stage renal disease on hemodialysis, chronic respiratory failure on home O2, COPD, congestive heart failure, chronic AFib, history of previous CVA, chronic anemia who initially presented to the hospital with the increasing shortness a breath and increasing work of breathing found to have 1. Acute on chronic hypoxic respiratory failure secondary to acute COPD exacerbation 2. Acute COPD exacerbation 3. AFib with RVR currently on amiodarone drip 4. MRSA bacteremia 5. Suspected pneumonia 6. End-stage renal disease on hemodialysis 7. Chronic congestive heart failure with diastolic dysfunction - repeat blood cultures, continue IV antibiotics, infectious disease consultation appreciated -obtain 2D echo to rule out vegetation, cardiology consultation, nephrology consultation for dialysis. -med nebs, O2 supplementation. -removed, with a spent of new hemodialysis catheter once blood cultures are negative for 72 hours. -physical therapy evaluation and treatment. Plan discussed with: Patient, Other Date of Service: January 15, 2025 Billing Provider: GARLAND BLOUNT MD Common Visit Codes: NOT BILLABLE GARLAND BLOUNT MD January 15, 2025 16:28
[2025-01-15] MEDS: EPOETIN ALFA-EPBX 10,000 UNIT/1ML VIAL SC ONE (21:00)
--- NOTE | 2025-01-15 22:33 | DVHPN2 ---
Progress Note - Dictate Date Seen: January 15, 2025 Medical Necessity Reason Pt with a Central, PICC or Fol: No Subjective Patient seen and examined at bedside. Remains on supplemental oxygen Overnight events reviewed. vital signs Vital Sign Date Time Temp Pulse Resp B/P (MAP) Pulse Ox O2 Delivery O2 Flow Rate FiO2 01/15/25 20:54 98.0 78 18 124/82 (96) 98 98.0 01/15/25 19:00 Nasal Cannula* 2 28 Total Intake and Output 01/14/25 01/14/25 01/15/25 15:00 23:00 07:00 Intake Total 890 ml 360 ml 280 ml Balance 890 ml 360 ml 280 ml medications Current Medications Medications Dose Ordered Sig/Carmen Route Start Time Stop Time Status Last Admin Dose Admin Ceftriaxone Sodium 50 ml @ 100 mls/hr DAILY@09 IV 01/12/25 09:00 01/15/25 08:47 100 MLS/HR Multivit/Ca Carb/ B Cmplx/FA/Prenat 1 tab DAILY PO 01/12/25 10:00 01/15/25 08:54 1 TAB Sevelamer HCl 1,200 mg TIDWM PO 01/12/25 08:00 01/15/25 17:50 1,200 MG Famotidine 20 mg DAILY IV 01/12/25 10:00 01/15/25 08:48 20 MG Carvedilol 3.125 mg Q12HR PO 01/12/25 10:00 01/15/25 08:55 3.125 MG Atorvastatin Calcium 10 mg HS PO 01/12/25 22:00 01/14/25 22:27 10 MG Amiodarone HCl 200 mg DAILY PO 01/12/25 10:00 01/15/25 08:54 200 MG Apixaban 2.5 mg BID PO 01/12/25 10:00 01/15/25 08:54 2.5 MG Sodium Chloride 10 ml Q8HR IV 01/12/25 06:00 01/15/25 17:47 10 ML Acetaminophen/ Hydrocodone Bitart 1 tab Q4HP PRN PO 01/12/25 03:15 Ondansetron HCl 4 mg Q4HP PRN IV 01/12/25 03:15 Docusate Sodium 100 mg BIDPRN PRN PO 01/12/25 03:15 Acetaminophen 650 mg Q6HP PRN PO 01/12/25 03:15 01/12/25 17:45 650 MG Nitroglycerin 0.4 mg Q5MINP PRN SL 01/12/25 03:15 Morphine Sulfate 2 mg Q30M PRN IV 01/12/25 03:15 Ipratropium [place] 0.5 mg Q4HR NEB 01/12/25 14:00 01/15/25 19:25 0.5 MG Levalbuterol HCl 1.25 mg Q4HR NEB 01/12/25 14:00 01/15/25 19:25 1.25 MG Vancomycin HCl 0 ml @ 0 mls/hr UD IV 01/12/25 20:00 Midodrine 10 mg TID@0600,1200,1800 PO 01/14/25 12:00 01/15/25 17:50 10 MG objective Gen.: Patient lying in bed in no apparent distress. On supplemental oxygen. Head: Normocephalic, atraumatic. Eyes: EOMI/PERRLA. Ears: Normal hearing. Normal anatomy. Neck/trachea: Trachea midline, supple. Nose: Normal external anatomy. Mouth: Moist mucous membranes. Chest: Decreased air entry bilaterally. No wheezing or rhonchi. Cardiovascular: Positive S1, positive S2. Regular rate and rhythm. Abdomen: Positive bowel sounds in all 4 quadrants. Soft, non-tender, non- distended. : Deferred. Rectal: Deferred. Skin: Warm, dry. Intact. Extremities: 2+ radial pulses bilaterally. No lower extremity edema. Neuro: Awake, alert, oriented x3. No gross motor or sensory deficits. Cranial nerves II through XII intact. Gait not assessed. laboratory and microbiology Laboratory Tests 01/14/25 06:40 01/13/25 06:31 Test 01/13/25 06:31 Range/Units Serum Glucose 116 H 74-106 mg/dL Assessment/Plan Impression: Acute hypoxic respiratory failure Dependence on supplemental oxygen Atrial fibrillation with rapid ventricular response End-stage renal disease, on hemodialysis Congestive heart failure Bacteremia with GPC in clusters Obesity BMI 32.6 Events: Remains on supplemental oxygen, 2 LPM NC Taper O2 as tolerated Patient refusing BiPAP. No overnight events Continue amiodarone PO Continue bronchodilators Continue antibiotics Positive blood cultures - MRSA Repeat blood cultures show no growth after 48 hours ID recommendations appreciated. Monitor hemoglobin Pepcid for GI prophylaxis HD per Nephrology Follow up Nephro recs. Labs and imaging reviewed. Rest of plan as noted below Plan: Supplemental oxygen Titrate to keep O2 sats above 92%. Continue bronchodilators. Continue antibiotics Follow up cultures Accu-Cheks, ISS HD per Nephrology Nephrology recs appreciated. Monitor renal function. Monitor electrolytes. Supplement as necessary. Monitor ins and outs. DVT prophylaxis. Prognosis: Poor given patient's multiple co-morbidities. Rest of plan per hospitalist and other consultants. Thank you, Dr. Iyer, for allowing me to participate in this patient's care. Further recommendations will depend on the patient's clinical course. Please do not hesitate to contact me if you have any questions or concerns. This medical document was created using an electronic medical record system with [employer] dictation system. Although these documentations are being carefully reviewed, there may still be some phonetic and typographical changes. The errors are purely typographical, due to imperfection on the software program, and do not reflect any compromise in the patient's medical care. Dietary Evaluation Review Comments: 1) Continue liberalizing diet to renal standard diet 2) Consider Nepro Carb steady 240ml daily if PO intake <50% 3) Continue current POC Expected Outcomes/Goals: to meet at least 75% estimated needs fu 3-5 days Plan discussed with: Patient, Other (ALFIE Ray) JUANITO ADAMS MD January 15, 2025 22:33
--- NOTE | 2025-01-15 23:39 | DVHPN2 ---
Progress Note - Dictate Date Seen: January 15, 2025 Medical Necessity Reason Pt with a Central, PICC or Fol: No Subjective Patient was seen and evaluated in follow up. Patient is on 2 LPM NC. Left subclavian tunneled cath draining purulent material, IR consulted for removal. Telemetry reviewed. vital signs Vital Sign Date Time Temp Pulse Resp B/P (MAP) Pulse Ox O2 Delivery O2 Flow Rate FiO2 01/15/25 22:23 75 17 100 01/15/25 22:23 124/82 01/15/25 20:54 98.0 98.0 01/15/25 19:00 Nasal Cannula* 2 28 Total Intake and Output 01/14/25 01/14/25 01/15/25 15:00 23:00 07:00 Intake Total 890 ml 360 ml 280 ml Balance 890 ml 360 ml 280 ml medications Current Medications Medications Dose Ordered Sig/Carmen Route Start Time Stop Time Status Last Admin Dose Admin Ceftriaxone Sodium 50 ml @ 100 mls/hr DAILY@09 IV 01/12/25 09:00 01/15/25 08:47 100 MLS/HR Multivit/Ca Carb/ B Cmplx/FA/Prenat 1 tab DAILY PO 01/12/25 10:00 01/15/25 08:54 1 TAB Sevelamer HCl 1,200 mg TIDWM PO 01/12/25 08:00 01/15/25 17:50 1,200 MG Famotidine 20 mg DAILY IV 01/12/25 10:00 01/15/25 08:48 20 MG Carvedilol 3.125 mg Q12HR PO 01/12/25 10:00 01/15/25 22:23 3.125 MG Atorvastatin Calcium 10 mg HS PO 01/12/25 22:00 01/15/25 22:23 10 MG Amiodarone HCl 200 mg DAILY PO 01/12/25 10:00 01/15/25 08:54 200 MG Apixaban 2.5 mg BID PO 01/12/25 10:00 01/15/25 08:54 2.5 MG Sodium Chloride 10 ml Q8HR IV 01/12/25 06:00 01/15/25 22:23 10 ML Acetaminophen/ Hydrocodone Bitart 1 tab Q4HP PRN PO 01/12/25 03:15 Ondansetron HCl 4 mg Q4HP PRN IV 01/12/25 03:15 Docusate Sodium 100 mg BIDPRN PRN PO 01/12/25 03:15 Acetaminophen 650 mg Q6HP PRN PO 01/12/25 03:15 01/12/25 17:45 650 MG Nitroglycerin 0.4 mg Q5MINP PRN SL 01/12/25 03:15 Morphine Sulfate 2 mg Q30M PRN IV 01/12/25 03:15 Ipratropium [place] 0.5 mg Q4HR NEB 01/12/25 14:00 01/15/25 22:25 0.5 MG Levalbuterol HCl 1.25 mg Q4HR NEB 01/12/25 14:00 01/15/25 22:25 1.25 MG Vancomycin HCl 0 ml @ 0 mls/hr UD IV 01/12/25 20:00 Midodrine 10 mg TID@0600,1200,1800 PO 01/14/25 12:00 01/15/25 17:50 10 MG objective GENERAL: Alert and oriented x 3. No acute distress.. EYES: PERRL, EOMI. Anicteric. HENT: Moist mucous membranes. LUNGS: Decreased breath sounds. CARDIOVASCULAR: Regular rate and rhythm. ABDOMEN: Soft, nontender and nondistended. EXTREMITIES: No edema. NEUROLOGIC: No focal neurological deficits. SKIN: Warm, dry. laboratory and microbiology Laboratory Tests 01/14/25 06:40 01/13/25 06:31 Test 01/13/25 06:31 Range/Units Serum Glucose 116 H 74-106 mg/dL Problem List Atrial fibrillation with RVR. Sepsis, unspecified organism. End-stage renal disease on hemodialysis. Generalized weakness. Assessment/Plan Continued all current supportive medical care. Morphine and [place] for pain management. Amiodarone. Eliquis. Lipitor. Coreg. IV antibiotics as ordered. Additional plan as per the hospital course. Dietary Evaluation Review Comments: 1) Continue liberalizing diet to renal standard diet 2) Consider Nepro Carb steady 240ml daily if PO intake <50% 3) Continue current POC Expected Outcomes/Goals: to meet at least 75% estimated needs fu 3-5 days Plan discussed with: Patient ANASTASIYA KOLB MD January 15, 2025 23:39
[2025-01-16] VITALS (19 sets, daily range): BP systolic 118–155; BP diastolic 57–81; PULSE 76–82; RESP 16–22; TEMP 96.9–98.4; O2SAT 93–100
[2025-01-16 08:52] LABS: Potassium 3.7 mmol/L (3.5-5.1)
--- NOTE | 2025-01-16 10:40 | DVHPN2 ---
Progress Note Date Seen: January 16, 2025 Resident Creating Document: BEATRIZ ROCK RESIDENT Medical Necessity Reason Pt with a Central, PICC or Fol: No Subjective Review of Systems Mr. Muñoz is a 79-year-old male with PMHx AFib on Eliquis, ESRD on hemodialysis with [facility] nephro Wednesday/Wednesday/Wednesday for the past 2 years, COPD not on home oxygen, history of stroke twice last 09/2023, denies diabetes mellitus, hypertension who presented to the ER with a chief complaint of shortness of breaths and generalized weakness. Patient is A&O x3, reports experiencing flu-like symptoms including fever, chills, generalized weakness and body ache for the past 3 weeks. He has been experiencing worsening shortness of breaths especially on exertion associated with sore throat and congestion, can not cough up the phlegm. Patient denies orthopnea, PND, chest pain, palpitations. Last hemodialysis session was on Wednesday per patient Patient reports making urine PMHx: AFib on Eliquis, ESRD on hemodialysis with [facility] nephro Wednesday/Wednesday/Wednesday for the past 2 years, COPD not on home oxygen, history of stroke twice last 09/2023, denies diabetes mellitus, hypertension Social history: Lives alone, does not have a caregiver, quit smoking more than 15 years back, previously heavy smoker, denies drinking or illicit drug use Home medications: Eliquis 2.5 mg b.i.d., aspirin, atorvastatin, metoprolol tartrate 50 mg, pantoprazole, sevelamer TID Patient seen and examined the bedside. Left subclavian tunneled cath draining purulent material, IR consulted for removal. 01/16 - patient is seen and examined at the bedside. Weaned of oxygen from 3 L to 1 L, Saturating 98 on 1 L oxygen. 2 L HD yesterday around 5pm. Tunneled catheter removed by IR. Objective vital signs Vital Sign Date Time Temp Pulse Resp B/P (MAP) Pulse Ox O2 Delivery O2 Flow Rate FiO2 01/16/25 09:40 79 16 100 01/16/25 09:34 Nasal Cannula* 1 24 01/16/25 09:00 96.9 132/71 (91) 96.9 Total Intake and Output 01/15/25 01/15/25 01/16/25 15:00 23:00 07:00 Intake Total 170 ml 520 ml 0 ml Balance 170 ml 520 ml 0 ml medications Current Medications Medications Dose Ordered Sig/Carmen Route Start Time Stop Time Status Last Admin Dose Admin Ceftriaxone Sodium 50 ml @ 100 mls/hr DAILY@09 IV 01/12/25 09:00 01/16/25 08:43 100 MLS/HR Multivit/Ca Carb/ B Cmplx/FA/Prenat 1 tab DAILY PO 01/12/25 10:00 01/16/25 08:46 1 TAB Sevelamer HCl 1,200 mg TIDWM PO 01/12/25 08:00 01/16/25 08:46 1,200 MG Famotidine 20 mg DAILY IV 01/12/25 10:00 01/16/25 08:41 20 MG Carvedilol 3.125 mg Q12HR PO 01/12/25 10:00 01/16/25 08:46 3.125 MG Atorvastatin Calcium 10 mg HS PO 01/12/25 22:00 01/15/25 22:23 10 MG Amiodarone HCl 200 mg DAILY PO 01/12/25 10:00 01/16/25 08:46 200 MG Apixaban 2.5 mg BID PO 01/12/25 10:00 01/15/25 08:54 2.5 MG Sodium Chloride 10 ml Q8HR IV 01/12/25 06:00 01/16/25 05:44 10 ML Acetaminophen/ Hydrocodone Bitart 1 tab Q4HP PRN PO 01/12/25 03:15 Ondansetron HCl 4 mg Q4HP PRN IV 01/12/25 03:15 Docusate Sodium 100 mg BIDPRN PRN PO 01/12/25 03:15 Acetaminophen 650 mg Q6HP PRN PO 01/12/25 03:15 01/12/25 17:45 650 MG Nitroglycerin 0.4 mg Q5MINP PRN SL 01/12/25 03:15 Morphine Sulfate 2 mg Q30M PRN IV 01/12/25 03:15 Ipratropium [place] 0.5 mg Q4HR NEB 01/12/25 14:00 01/16/25 09:34 0.5 MG Levalbuterol HCl 1.25 mg Q4HR NEB 01/12/25 14:00 01/16/25 09:34 1.25 MG Vancomycin HCl 0 ml @ 0 mls/hr UD IV 01/12/25 20:00 Midodrine 10 mg TID@0600,1200,1800 PO 01/14/25 12:00 01/16/25 05:43 10 MG Examination Obese male patient lying in the bed General: Obese, afebrile,, mucosae are moist Cardiovascular: Regular S1 and S2. No murmurs, gallops or rubs. No JVD elevation. 1+ bilateral pedal edema pitting. L subclavian tunneld cath draining purulent discharge Respiratory: Decreased bilateral air entry on nasal cannula supplementation Abdomen: Soft, nontender, nondistended, normoactive bowel sounds, no rebound tenderness, no organomegaly, no masses Genitourinary: Deferred MSK/skin: Mobilizes 4 limbs. Skin is dry and warm Psych/Mental Status: A/Ox3 laboratory and microbiology Laboratory Tests 01/16/25 05:22 01/14/25 06:40 01/13/25 06:31 Test 01/13/25 06:31 Range/Units Serum Glucose 116 H 74-106 mg/dL Microbiology Date/Time Source Procedure Growth Status 01/13/25 16:52 Blood Blood Culture - Preliminary NO GROWTH AFTER 48 HOURS OF INCUBATION. Resulted 01/13/25 15:20 Nose MRSA Screen - Final Methicillin Resistant S.aureus Complete Labs and/or images reviewed: Labs reviewed by me, Image(s) reviewed by me Problem List/Assessment/Plan Problem List/Assessment/Plan Acute kidney injury superimposed on ESRD on hemodialysis ESRD on hemodialysis Wednesday/Wednesday/Wednesday Likely infected tunneled catheter MRSA bacteremia Macrocytic Anemia, likely secondary to ESRD Acute hypoxic respiratory failure Acute COPD exacerbation secondary to probable pneumonia Probable sepsis secondary to pneumonia Paroxysmal Atrial fibrillation-on Eliquis-currently sinus Lactic acidosis History of CVA History of diabetes-patient denies Hypertension GERD Plan: Patient underwent left tunneled catheter removal 01/16. Follow up with culture results. Patient underwent hemodialysis 01/12, and yesterday 01/15 - 2 L taken out WBC trended down to 7.8 01/11 blood culture showing MRSA, 01/13 prelim negative, blood cultures ordered 01/15 and 01/16 Continue midodrine 10 mg TID Consider daily blood cultures, reconsider putting a new tunneled catheter for hemodialysis once 3 consecutive blood cultures have been negative for 3 consecutive days Continue IV vancomycin Continue sevelamer t.i.d. Plan discussed with patient in which all questions have been answered Case discussed with Dr. Gipson Addendum Patient seen and examined, plan discussed with resident. Agree with above, we will follow closely Plan discussed with: Patient My Orders My Orders Orders - BEATRIZ ROCK Procedure Category Date Status Time Blood Culture CRYSTAL 01/15/25 In Process 13:01 Dietary Evaluation Review Comments: 1) Continue liberalizing diet to renal standard diet 2) Consider Nepro Carb steady 240ml daily if PO intake <50% 3) Continue current POC Expected Outcomes/Goals: to meet at least 75% estimated needs fu 3-5 days BEATRIZ ROCK January 16, 2025 10:40 MAHESH GIPSON MD January 16, 2025 13:37
--- NOTE | 2025-01-16 16:10 | DVHPN2 ---
Subjective Patient was seen and evaluated by me feeling much better. PATIENT'S LEFT CONTINUE CATHETER HAS BEEN REMOVED. Changes from previous H/P or p: No Changes Eyes: No Pain, No Vision change, No Conjunctivae inflammation, No Eyelid inflammation, No Other, No Redness ENT: No Ear pain, No Ear discharge, No Nose pain, No Nose discharge, No Nose congestion, No Mouth pain, No Mouth swelling, No Throat pain, No Throat swelling, No Other Cardiovascular: No Chest Pain, No Palpitations, No Orthopnea, No Paroxysmal Noc. Dyspnea, No Edema, No Lt Headedness, No Other Respiratory: No Cough, No Dry; Shortness of breath; No SOB with excertion, No Wheezing, No Hemoptysis, No Pleuritic Pain, No Sputum, No Other Gastrointestinal: No Nausea, No Vomiting, No Abdominal Pain, No Diarrhea, No Constipation, No Melena, No Hematochezia, No Other Genitourinary: No Dysuria, No Frequency, No Incontinence, No Hematuria, No Retention, No Other Musculoskeletal: No other, No neck pain, No shoulder pain, No arm pain, No back pain, No hand pain, No leg pain, No foot pain Skin: No Rash, No Lesions, No Jaundice, No Bruising, No Other Objective Vitals Vital Signs Date Time Temp Pulse Resp B/P (MAP) Pulse Ox O2 Delivery O2 Flow Rate FiO2 01/16/25 14:00 78 18 100 01/16/25 13:54 Nasal Cannula 1.0 01/16/25 13:54 24 01/16/25 13:00 97.4 140/77 (98) 97.4 Intake/Output Intake and Output 01/16/25 07:00 Intake Total 690 ml Balance 690 ml Intake Oral 240 ml IV Total 50 ml Tube Feeding 400 ml # Voids 1 # Bowel Movements 2 Exam HEENT pupils are reactive Neck is supple CV is S1-S2 regular rate and rhythm Respiratory diminished breath sounds bases with expiratory wheezing. 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 Medications Current Medications Medications Dose Ordered Sig/Carmen Route Start Time Stop Time Status Last Admin Dose Admin Multivit/Ca Carb/ B Cmplx/FA/Prenat 1 tab DAILY PO 01/12/25 10:00 01/16/25 08:46 1 TAB Sevelamer HCl 1,200 mg TIDWM PO 01/12/25 08:00 01/16/25 12:48 1,200 MG Famotidine 20 mg DAILY IV 01/12/25 10:00 01/16/25 08:41 20 MG Carvedilol 3.125 mg Q12HR PO 01/12/25 10:00 01/16/25 08:46 3.125 MG Atorvastatin Calcium 10 mg HS PO 01/12/25 22:00 01/15/25 22:23 10 MG Amiodarone HCl 200 mg DAILY PO 01/12/25 10:00 01/16/25 08:46 200 MG Apixaban 2.5 mg BID PO 01/12/25 10:00 01/15/25 08:54 2.5 MG Sodium Chloride 10 ml Q8HR IV 01/12/25 06:00 01/16/25 16:07 10 ML Acetaminophen/ Hydrocodone Bitart 1 tab Q4HP PRN PO 01/12/25 03:15 Ondansetron HCl 4 mg Q4HP PRN IV 01/12/25 03:15 Docusate Sodium 100 mg BIDPRN PRN PO 01/12/25 03:15 Acetaminophen 650 mg Q6HP PRN PO 01/12/25 03:15 01/12/25 17:45 650 MG Nitroglycerin 0.4 mg Q5MINP PRN SL 01/12/25 03:15 Morphine Sulfate 2 mg Q30M PRN IV 01/12/25 03:15 Ipratropium [place] 0.5 mg Q4HR NEB 01/12/25 14:00 01/16/25 13:54 0.5 MG Levalbuterol HCl 1.25 mg Q4HR NEB 01/12/25 14:00 01/16/25 13:54 1.25 MG Vancomycin HCl 0 ml @ 0 mls/hr UD IV 01/12/25 20:00 Midodrine 10 mg TID@0600,1200,1800 PO 01/14/25 12:00 01/16/25 12:48 10 MG Laboratory Results Laboratory Tests 01/13/25 06:31 01/14/25 06:40 01/16/25 05:22 Microbiology Microbiology Date/Time Source Procedure Growth Status 01/15/25 15:05 Blood Blood Culture - Preliminary NO GROWTH AFTER 24 HOURS OF INCUBATION. Resulted 01/13/25 15:20 Nose MRSA Screen - Final Methicillin Resistant S.aureus Complete Assessment/Plan Assessment/Plan 79-year-old male with a known history of end-stage renal disease on hemodialysis, chronic respiratory failure on home O2, COPD, congestive heart failure, chronic AFib, history of previous CVA, chronic anemia who initially presented to the hospital with the increasing shortness a breath and increasing work of breathing found to have 1. Acute on chronic hypoxic respiratory failure secondary to acute COPD exacerbation 2. Acute COPD exacerbation 3. AFib with RVR CURRENTLY IMPROVED 4. MRSA bacteremia, REPEAT BLOOD CULTURES ARE NEGATIVE 5. Suspected pneumonia 6. End-stage renal disease on hemodialysis 7. Chronic congestive heart failure with diastolic dysfunction - repeat blood cultures, continue IV antibiotics, infectious disease consultation appreciated -obtain 2D echo to rule out vegetation, cardiology consultation, -med nebs, O2 supplementation. -PATIENT IS STATUS POST REMOVAL OF HEMODIALYSIS CATHETHER, NEW CATHETER WILL BE PLACED AFTER BLOOD CULTURES NEGATIVE FOR 72 HOURS. -physical therapy evaluation and treatment. Plan discussed with: Patient My Orders Orders - GARLAND BLOUNT MD Procedure Category Date Status Time Communication Order ORDERS 01/15/25 Transmitted 17:13 Complete Blood Count LAB 01/17/25 Verified 04:00 Creatinine LAB 01/17/25 Verified 04:00 Vancomycin,Random LAB 01/17/25 Verified 04:00 Date of Service: January 16, 2025 Billing Provider: GARLAND BLOUNT MD Common Visit Codes: NOT BILLABLE GARLAND BLOUNT MD January 16, 2025 16:10
--- NOTE | 2025-01-16 19:56 | DVHPN2 ---
Progress Note - Dictate Date Seen: January 16, 2025 Medical Necessity Reason Pt with a Central, PICC or Fol: No Subjective Patient seen and examined at bedside. Remains on supplemental oxygen Overnight events reviewed. vital signs Vital Sign Date Time Temp Pulse Resp B/P (MAP) Pulse Ox O2 Delivery O2 Flow Rate FiO2 01/16/25 17:00 97.2 81 17 134/65 (88) 100 97.2 01/16/25 13:54 Nasal Cannula 1.0 01/16/25 13:54 24 Total Intake and Output 01/15/25 01/15/25 01/16/25 15:00 23:00 07:00 Intake Total 170 ml 520 ml 0 ml Balance 170 ml 520 ml 0 ml medications Current Medications Medications Dose Ordered Sig/Carmen Route Start Time Stop Time Status Last Admin Dose Admin Multivit/Ca Carb/ B Cmplx/FA/Prenat 1 tab DAILY PO 01/12/25 10:00 01/16/25 08:46 1 TAB Sevelamer HCl 1,200 mg TIDWM PO 01/12/25 08:00 01/16/25 17:27 1,200 MG Famotidine 20 mg DAILY IV 01/12/25 10:00 01/16/25 08:41 20 MG Carvedilol 3.125 mg Q12HR PO 01/12/25 10:00 01/16/25 08:46 3.125 MG Atorvastatin [place] 10 mg HS PO 01/12/25 22:00 01/15/25 22:23 10 MG Amiodarone HCl 200 mg DAILY PO 01/12/25 10:00 01/16/25 08:46 200 MG Apixaban 2.5 mg BID PO 01/12/25 10:00 01/15/25 08:54 2.5 MG Sodium Chloride 10 ml Q8HR IV 01/12/25 06:00 01/16/25 16:07 10 ML Acetaminophen/ Hydrocodone Bitart 1 tab Q4HP PRN PO 01/12/25 03:15 Ondansetron HCl 4 mg Q4HP PRN IV 01/12/25 03:15 Docusate Sodium 100 mg BIDPRN PRN PO 01/12/25 03:15 Acetaminophen 650 mg Q6HP PRN PO 01/12/25 03:15 01/12/25 17:45 650 MG Nitroglycerin 0.4 mg Q5MINP PRN SL 01/12/25 03:15 Morphine Sulfate 2 mg Q30M PRN IV 01/12/25 03:15 Ipratropium [place] 0.5 mg Q4HR NEB 01/12/25 14:00 01/16/25 19:38 0.5 MG Levalbuterol HCl 1.25 mg Q4HR NEB 01/12/25 14:00 01/16/25 19:38 1.25 MG Vancomycin HCl 0 ml @ 0 mls/hr UD IV 01/12/25 20:00 Midodrine 10 mg TID@0600,1200,1800 PO 01/14/25 12:00 01/16/25 17:27 10 MG objective Gen.: Patient lying in bed in no apparent distress. On supplemental oxygen. Head: Normocephalic, atraumatic. Eyes: EOMI/PERRLA. Ears: Normal hearing. Normal anatomy. Neck/trachea: Trachea midline, supple. Nose: Normal external anatomy. Mouth: Moist mucous membranes. Chest: Decreased air entry bilaterally. No wheezing or rhonchi. Cardiovascular: Positive S1, positive S2. Regular rate and rhythm. Abdomen: Positive bowel sounds in all 4 quadrants. Soft, non-tender, non- distended. : Deferred. Rectal: Deferred. Skin: Warm, dry. Intact. Extremities: 2+ radial pulses bilaterally. No lower extremity edema. Neuro: Awake, alert, oriented x3. No gross motor or sensory deficits. Cranial nerves II through XII intact. Gait not assessed. laboratory and microbiology Laboratory Tests 01/16/25 05:22 01/14/25 06:40 01/13/25 06:31 Test 01/13/25 06:31 Range/Units Serum Glucose 116 H 74-106 mg/dL Assessment/Plan Impression: Acute hypoxic respiratory failure Dependence on supplemental oxygen Atrial fibrillation with rapid ventricular response End-stage renal disease, on hemodialysis Congestive heart failure Bacteremia with GPC in clusters Obesity BMI 32.6 Events: Remains on supplemental oxygen, 1 LPM NC Taper O2 as tolerated Patient had tunneled catheter removed by IR today. Cultured tip. F/u results No overnight events Continue amiodarone PO Continue bronchodilators Continue antibiotics. WBC trending down. Positive blood cultures - MRSA Repeat blood cultures show no growth after 72 hours and 2nd set, no growth after 24 hours. ID recommendations appreciated. Monitor hemoglobin Pepcid for GI prophylaxis HD per Nephrology Monitor potassium. Nephro recs appreciated. Labs and imaging reviewed. Rest of plan as noted below Plan: Supplemental oxygen Titrate to keep O2 sats above 92%. Continue bronchodilators. Continue antibiotics Accu-Cheks, ISS HD per Nephrology Nephrology recs appreciated. Monitor renal function. Monitor electrolytes. Supplement as necessary. Monitor ins and outs. DVT prophylaxis. Prognosis: Poor given patient's multiple co-morbidities. Rest of plan per hospitalist and other consultants. Thank you, Dr. Iyer, for allowing me to participate in this patient's care. Further recommendations will depend on the patient's clinical course. Please do not hesitate to contact me if you have any questions or concerns. This medical document was created using an electronic medical record system with iMER dictation system. Although these documentations are being carefully reviewed, there may still be some phonetic and typographical changes. The errors are purely typographical, due to imperfection on the software program, and do not reflect any compromise in the patient's medical care. Dietary Evaluation Review Comments: 1) Continue liberalizing diet to renal standard diet 2) Consider Nepro Carb steady 240ml daily if PO intake <50% 3) Continue current POC Expected Outcomes/Goals: to meet at least 75% estimated needs fu 3-5 days Plan discussed with: Patient, Other (ALFIE Peña) JUANITO ADAMS MD January 16, 2025 19:56
--- NOTE | 2025-01-16 22:23 | DVHPN2 ---
Progress Note - Dictate Date Seen: January 16, 2025 Medical Necessity Reason Pt with a Central, PICC or Fol: No Subjective Patient was seen and evaluated in follow up. Patient is on 1 LPM NC. Left subclavian tunneled cath was removed. WBC is now WNL at 7.8. 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 Telemetry reviewed. vital signs Vital Sign Date Time Temp Pulse Resp B/P (MAP) Pulse Ox O2 Delivery O2 Flow Rate FiO2 01/16/25 21:57 82 155/81 01/16/25 17:00 97.2 17 100 97.2 01/16/25 13:54 Nasal Cannula 1.0 01/16/25 13:54 24 Total Intake and Output 01/15/25 01/15/25 01/16/25 15:00 23:00 07:00 Intake Total 170 ml 520 ml 0 ml Balance 170 ml 520 ml 0 ml medications Current Medications Medications Dose Ordered Sig/Carmen Route Start Time Stop Time Status Last Admin Dose Admin Multivit/Ca Carb/ B Cmplx/FA/Prenat 1 tab DAILY PO 01/12/25 10:00 01/16/25 08:46 1 TAB Sevelamer HCl 1,200 mg TIDWM PO 01/12/25 08:00 01/16/25 17:27 1,200 MG Famotidine 20 mg DAILY IV 01/12/25 10:00 01/16/25 08:41 20 MG Carvedilol 3.125 mg Q12HR PO 01/12/25 10:00 01/16/25 21:57 3.125 MG Atorvastatin Calcium 10 mg HS PO 01/12/25 22:00 01/16/25 21:56 10 MG Amiodarone HCl 200 mg DAILY PO 01/12/25 10:00 01/16/25 08:46 200 MG Apixaban 2.5 mg BID PO 01/12/25 10:00 01/16/25 21:57 2.5 MG Sodium Chloride 10 ml Q8HR IV 01/12/25 06:00 01/16/25 21:57 10 ML Acetaminophen/ Hydrocodone Bitart 1 tab Q4HP PRN PO 01/12/25 03:15 Ondansetron HCl 4 mg Q4HP PRN IV 01/12/25 03:15 Docusate Sodium 100 mg BIDPRN PRN PO 01/12/25 03:15 Acetaminophen 650 mg Q6HP PRN PO 01/12/25 03:15 01/12/25 17:45 650 MG Nitroglycerin 0.4 mg Q5MINP PRN SL 01/12/25 03:15 Morphine Sulfate 2 mg Q30M PRN IV 01/12/25 03:15 Ipratropium [place] 0.5 mg Q4HR NEB 01/12/25 14:00 01/16/25 22:18 0.5 MG Levalbuterol HCl 1.25 mg Q4HR NEB 01/12/25 14:00 01/16/25 22:18 1.25 MG Vancomycin HCl 0 ml @ 0 mls/hr UD IV 01/12/25 20:00 Midodrine 10 mg TID@0600,1200,1800 PO 01/14/25 12:00 01/16/25 17:27 10 MG objective GENERAL: Alert and oriented x 3. No acute distress.. EYES: PERRL, EOMI. Anicteric. HENT: Moist mucous membranes. LUNGS: Decreased breath sounds. CARDIOVASCULAR: Regular rate and rhythm. ABDOMEN: Soft, nontender and nondistended. EXTREMITIES: No edema. NEUROLOGIC: No focal neurological deficits. SKIN: Warm, dry. laboratory and microbiology Laboratory Tests 01/16/25 05:22 01/14/25 06:40 01/13/25 06:31 Test 01/13/25 06:31 Range/Units Serum Glucose 116 H 74-106 mg/dL Problem List Atrial fibrillation with RVR. Sepsis, unspecified organism. End-stage renal disease on hemodialysis. Generalized weakness. Assessment/Plan Continued all current supportive medical care. Morphine and [place] for pain management. Amiodarone. Eliquis. Lipitor. Coreg. IV antibiotics as ordered. Additional plan as per the hospital course. Dietary Evaluation Review Comments: 1) Continue liberalizing diet to renal standard diet 2) Consider Nepro Carb steady 240ml daily if PO intake <50% 3) Continue current POC Expected Outcomes/Goals: to meet at least 75% estimated needs fu 3-5 days Plan discussed with: Patient ANASTASIYA KOLB MD January 16, 2025 22:22
--- NOTE | 2025-01-16 22:27 | DVHPN2 ---
Consult Progress Note Date Seen: January 16, 2025 Subjective Patient reports: Other (has some rigth sided deficits and unable to move right arm and leg ) Objective vital signs Vital Sign Date Time Temp Pulse Resp B/P (MAP) Pulse Ox O2 Delivery O2 Flow Rate FiO2 01/16/25 21:57 82 155/81 01/16/25 17:00 97.2 17 100 97.2 01/16/25 13:54 Nasal Cannula 1.0 01/16/25 13:54 24 Total Intake and Output 01/15/25 01/15/25 01/16/25 15:00 23:00 07:00 Intake Total 170 ml 520 ml 0 ml Balance 170 ml 520 ml 0 ml medications Current Medications Medications Dose Ordered Sig/Carmen Route Start Time Stop Time Status Last Admin Dose Admin Multivit/Ca Carb/ B Cmplx/FA/Prenat 1 tab DAILY PO 01/12/25 10:00 01/16/25 08:46 1 TAB Sevelamer HCl 1,200 mg TIDWM PO 01/12/25 08:00 01/16/25 17:27 1,200 MG Famotidine 20 mg DAILY IV 01/12/25 10:00 01/16/25 08:41 20 MG Carvedilol 3.125 mg Q12HR PO 01/12/25 10:00 01/16/25 21:57 3.125 MG Atorvastatin Calcium 10 mg HS PO 01/12/25 22:00 01/16/25 21:56 10 MG Amiodarone HCl 200 mg DAILY PO 01/12/25 10:00 01/16/25 08:46 200 MG Apixaban 2.5 mg BID PO 01/12/25 10:00 01/16/25 21:57 2.5 MG Sodium Chloride 10 ml Q8HR IV 01/12/25 06:00 01/16/25 21:57 10 ML Acetaminophen/ Hydrocodone Bitart 1 tab Q4HP PRN PO 01/12/25 03:15 Ondansetron HCl 4 mg Q4HP PRN IV 01/12/25 03:15 Docusate Sodium 100 mg BIDPRN PRN PO 01/12/25 03:15 Acetaminophen 650 mg Q6HP PRN PO 01/12/25 03:15 01/12/25 17:45 650 MG Nitroglycerin 0.4 mg Q5MINP PRN SL 01/12/25 03:15 Morphine Sulfate 2 mg Q30M PRN IV 01/12/25 03:15 Ipratropium [place] 0.5 mg Q4HR NEB 01/12/25 14:00 01/16/25 22:18 0.5 MG Levalbuterol HCl 1.25 mg Q4HR NEB 01/12/25 14:00 01/16/25 22:18 1.25 MG Vancomycin HCl 0 ml @ 0 mls/hr UD IV 01/12/25 20:00 Midodrine 10 mg TID@0600,1200,1800 PO 01/14/25 12:00 01/16/25 17:27 10 MG laboratory and microbiology Laboratory Tests 01/16/25 05:22 01/14/25 06:40 01/13/25 06:31 Test 01/13/25 06:31 Range/Units Serum Glucose 116 H 74-106 mg/dL Problem List/Assessment/Plan Problems(with codes): (1) Metabolic encephalopathy (2) ESRD (end stage renal disease) on dialysis (3) Altered mental status (4) MRSA (methicillin resistant Staphylococcus aureus) septicemia (5) Weakness (6) Syncope (7) Leukocytosis Problem List/Assessment/Plan ASSESSMENT AND PLAN: ID Problem List: - Catheter-associated MRSA bacteremia - Severe sepsis - End-stage renal disease on hemodialysis - History of stroke with left-sided deficits (also noted as right-sided deficits in parts of transcript; clarify later if needed) COPD - Diabetes mellitus - Hypertension - Congestive heart failure Assessment: Mr. 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 On admission, laboratory findings were significant for leukocytosis (WBC 15.1), Hct 10.8, platelets 207, sodium 139, BUN 27, creatinine 4.64, glucose 101, and lactic acid 2.4. Physical examination notes obesity and left chest wall dialysis catheter site tenderness. The patient developed hypotension (BP decreased from 174/94 to 98/54) and tachycardia (HR 121 improved to 78 post-fluid bolus), as well as hypoxemia (SpO2 79% on 6L NC) with tachypnea (RR 32). Blood cultures returned positive for MRSA in 4/4 bottles (drawn 01/11 and 01/12); subsequent cultures after catheter removal have been negative for >72 hours as of 01/13. Chest imaging notes removal of the right internal jugular central line, placement of hemodialysis catheter in the left chest wall with tip in distal SVC, and mildly prominent bronchovascular markings left perihilar lobe. No acute/clear evidence of pulmonary infiltrate. Echocardiogram was limited by body habitus but showed aortic stenosis (valve area 1.4 cm), dyskinesis of interventricular septum, mild LVH, mild left ventricular diastolic dysfunction, and mildly dilated right-sided chambers. 01/15: patients blood cultures continue to be negative , catheter cultures are pending 01/16:catheter cultures are are showing staph aureus Plan: - recommend ANGEL at this time to rule out worsening potential endocarditis - once blood cultures are negative for 72 hours can replace the dialysis catheter line - patient will need vancomycin as outpatient for a minimum of 4-6 weeks -Continue intravenous vancomycin; patient appears to be responding well - Catheter removal has been performed; plan to replace dialysis line after ?72 hours of negative blood cultures - Once negative cultures maintained for at least 72 hours, initiate a 46 week course of IV vancomycin - Transesophageal echocardiogram (ANGEL) is planned to rule out endocarditis, as transthoracic study was inconclusive and suspicion remains elevated - Monitor daily blood cultures until negative clearance confirmed - Monitor for clinical stability and resolution of sepsis - Dialysis to continue per // schedule; ensure line access as above - No evidence of pulmonary infection or viral etiologies (Flu A, Flu B, COVID-19 all negative) - Supportive care including oxygen and fluid management as needed Isolation Precautions: Standard Plan discussed with: Other Dietary Evaluation Review Comments: 1) Continue liberalizing diet to renal standard diet 2) Consider Nepro Carb steady 240ml daily if PO intake <50% 3) Continue current POC Expected Outcomes/Goals: to meet at least 75% estimated needs fu 3-5 days RG STEVE MD January 16, 2025 22:27
--- NOTE | 2025-01-16 22:27 | DVHPN2 ---
Consult Progress Note Date Seen: January 15, 2025 Subjective Patient reports: Other (doing well , dialysis catheteer was removed and site appeqars clean . no open wounds ) Objective vital signs Vital Sign Date Time Temp Pulse Resp B/P (MAP) Pulse Ox O2 Delivery O2 Flow Rate FiO2 01/16/25 21:57 82 155/81 01/16/25 17:00 97.2 17 100 97.2 01/16/25 13:54 Nasal Cannula 1.0 01/16/25 13:54 24 Total Intake and Output 01/15/25 01/15/25 01/16/25 15:00 23:00 07:00 Intake Total 170 ml 520 ml 0 ml Balance 170 ml 520 ml 0 ml medications Current Medications Medications Dose Ordered Sig/Carmen Route Start Time Stop Time Status Last Admin Dose Admin Multivit/Ca Carb/ B Cmplx/FA/Prenat 1 tab DAILY PO 01/12/25 10:00 01/16/25 08:46 1 TAB Sevelamer HCl 1,200 mg TIDWM PO 01/12/25 08:00 01/16/25 17:27 1,200 MG Famotidine 20 mg DAILY IV 01/12/25 10:00 01/16/25 08:41 20 MG Carvedilol 3.125 mg Q12HR PO 01/12/25 10:00 01/16/25 21:57 3.125 MG Atorvastatin Calcium 10 mg HS PO 01/12/25 22:00 01/16/25 21:56 10 MG Amiodarone HCl 200 mg DAILY PO 01/12/25 10:00 01/16/25 08:46 200 MG Apixaban 2.5 mg BID PO 01/12/25 10:00 01/16/25 21:57 2.5 MG Sodium Chloride 10 ml Q8HR IV 01/12/25 06:00 01/16/25 21:57 10 ML Acetaminophen/ Hydrocodone Bitart 1 tab Q4HP PRN PO 01/12/25 03:15 Ondansetron HCl 4 mg Q4HP PRN IV 01/12/25 03:15 Docusate Sodium 100 mg BIDPRN PRN PO 01/12/25 03:15 Acetaminophen 650 mg Q6HP PRN PO 01/12/25 03:15 01/12/25 17:45 650 MG Nitroglycerin 0.4 mg Q5MINP PRN SL 01/12/25 03:15 Morphine Sulfate 2 mg Q30M PRN IV 01/12/25 03:15 Ipratropium [place] 0.5 mg Q4HR NEB 01/12/25 14:00 01/16/25 22:18 0.5 MG Levalbuterol HCl 1.25 mg Q4HR NEB 01/12/25 14:00 01/16/25 22:18 1.25 MG Vancomycin HCl 0 ml @ 0 mls/hr UD IV 01/12/25 20:00 Midodrine 10 mg TID@0600,1200,1800 PO 01/14/25 12:00 01/16/25 17:27 10 MG Physical Exam: General: NAD Neck: Supple. No masses. HEENT: PERRL. Normal lids and conjunctiva. Moist mucous membranes. Oropharynx without lesions, exudates or excessive erythema. Normal appearance of the external aspects of the nose and ears. Heart: Regular rhythm, normal rate. No murmur. No lower extremity edema. Lungs: Normal respiratory effort. Clear to auscultation bilaterally. No wheezes. No crackles. Abdomen: Soft. Non-tender. Non-distended. No masses or abdominal hernia. Msk: No digital cyanosis. Normal strength and tone in all 4 limbs. Skin: Warm and dry, no rashes. Tenderness at left chest wall dialysis catheter site. Neuro: Alert. No facial droop or slurred speech. Extra-ocular movements intact. Sensation intact to soft touch in all 4 limbs. Chronic left/right-sided deficits. Psych: Appropriate mood. Full affect. Oriented to person, place, time, and situation. laboratory and microbiology Laboratory Tests 01/16/25 05:22 01/14/25 06:40 01/13/25 06:31 Test 01/13/25 06:31 Range/Units Serum Glucose 116 H 74-106 mg/dL Problem List/Assessment/Plan Problems(with codes): (1) Metabolic encephalopathy (2) ESRD (end stage renal disease) on dialysis (3) MRSA (methicillin resistant Staphylococcus aureus) septicemia (4) Altered mental status (5) Syncope (6) Atrial fibrillation with RVR Problem List/Assessment/Plan ASSESSMENT AND PLAN: ID Problem List: - Catheter-associated MRSA bacteremia - Severe sepsis - End-stage renal disease on hemodialysis - History of stroke with left-sided deficits (also noted as right-sided deficits in parts of transcript; clarify later if needed) COPD - Diabetes mellitus - Hypertension - Congestive heart failure Assessment: Mr. 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 On admission, laboratory findings were significant for leukocytosis (WBC 15.1), Hct 10.8, platelets 207, sodium 139, BUN 27, creatinine 4.64, glucose 101, and lactic acid 2.4. Physical examination notes obesity and left chest wall dialysis catheter site tenderness. The patient developed hypotension (BP decreased from 174/94 to 98/54) and tachycardia (HR 121 improved to 78 post-fluid bolus), as well as hypoxemia (SpO2 79% on 6L NC) with tachypnea (RR 32). Blood cultures returned positive for MRSA in 4/4 bottles (drawn 01/11 and 01/12); subsequent cultures after catheter removal have been negative for >72 hours as of 01/13. Chest imaging notes removal of the right internal jugular central line, placement of hemodialysis catheter in the left chest wall with tip in distal SVC, and mildly prominent bronchovascular markings left perihilar lobe. No acute/clear evidence of pulmonary infiltrate. Echocardiogram was limited by body habitus but showed aortic stenosis (valve area 1.4 cm), dyskinesis of interventricular septum, mild LVH, mild left ventricular diastolic dysfunction, and mildly dilated right-sided chambers. 01/15: patients blood cultures continue to be negative , catheter cultures are pending Plan: - Continue intravenous vancomycin; patient appears to be responding well - Catheter removal has been performed; plan to replace dialysis line after ?72 hours of negative blood cultures - Once negative cultures maintained for at least 72 hours, initiate a 46 week course of IV vancomycin - Transesophageal echocardiogram (ANGEL) is planned to rule out endocarditis, as transthoracic study was inconclusive and suspicion remains elevated - Monitor daily blood cultures until negative clearance confirmed - Monitor for clinical stability and resolution of sepsis - Dialysis to continue per // schedule; ensure line access as above - No evidence of pulmonary infection or viral etiologies (Flu A, Flu B, COVID-19 all negative) - Supportive care including oxygen and fluid management as needed Isolation Precautions: Standard Plan discussed with: Other Dietary Evaluation Review Comments: 1) Continue liberalizing diet to renal standard diet 2) Consider Nepro Carb steady 240ml daily if PO intake <50% 3) Continue current POC Expected Outcomes/Goals: to meet at least 75% estimated needs fu 3-5 days RG STEVE MD January 16, 2025 22:27
[2025-01-17] VITALS (21 sets, daily range): BP systolic 127–171; BP diastolic 72–99; PULSE 71–116; RESP 16–20; TEMP 97.5–98.3; O2SAT 95–100
[2025-01-17 06:14] LABS: Basophils # (auto) 0.1 10 ^3/uL (0-0.2); Eosinophils # (auto) 0.6 10 ^3/uL (0-0.8); Mean Corpuscular Volume 102.3 fL (80.0-100.0); Neutrophils # (auto) 5.9 10 ^3/uL (1.6-8.6)
[2025-01-17 06:16] LABS: Basophils % (auto) 1.1 % (0.0-2.0); Eosinophils % (auto) 7.1 % (0.0-7.0); Hematocrit 25.5 % (41.0-53.0); Lymphocytes # (auto) 1.1 10 ^3/uL (0.4-5.4); Lymphocytes % (auto) 12.5 % (10.0-50.0); Mean Corpuscular Hemoglobin 32.3 pg (28.0-32.0); Mean Corpuscular Hgb Conc. 31.5 g/dL (32.0-36.0); Monocytes % (auto) 11.1 % (0.0-12.0); Neutrophils % (auto) 68.2 % (37.0-80.0); Platelet Count (auto) 260 10^3/uL (140-450); Red Blood Cells 2.49 10^6/uL (4.5-5.90); Red Cell Distribution Width 18.1 % (11.8-14.3); White Blood Cell 8.7 10^3/uL (4.4-10.8)
[2025-01-17] MEDS ORDERED: LOSA-533 PO (11:59)
[2025-01-17] MEDS: VANCOMYCIN 500mg/100mL 100 ML IV ONE (14:10)
--- NOTE | 2025-01-17 15:12 | DVHPN2 ---
Subjective Patient was seen and evaluated by me feeling much better. Patient's hemodialysis catheter has been removed. Changes from previous H/P or p: No Changes Eyes: No Pain, No Vision change, No Conjunctivae inflammation, No Eyelid inflammation, No Other, No Redness ENT: No Ear pain, No Ear discharge, No Nose pain, No Nose discharge, No Nose congestion, No Mouth pain, No Mouth swelling, No Throat pain, No Throat swelling, No Other Cardiovascular: No Chest Pain, No Palpitations, No Orthopnea, No Paroxysmal Noc. Dyspnea, No Edema, No Lt Headedness, No Other Respiratory: No Cough, No Dry; Shortness of breath; No SOB with excertion, No Wheezing, No Hemoptysis, No Pleuritic Pain, No Sputum, No Other Gastrointestinal: No Nausea, No Vomiting, No Abdominal Pain, No Diarrhea, No Constipation, No Melena, No Hematochezia, No Other Genitourinary: No Dysuria, No Frequency, No Incontinence, No Hematuria, No Retention, No Other Musculoskeletal: No other, No neck pain, No shoulder pain, No arm pain, No back pain, No hand pain, No leg pain, No foot pain Skin: No Rash, No Lesions, No Jaundice, No Bruising, No Other Objective Vitals Vital Signs Date Time Temp Pulse Resp B/P (MAP) Pulse Ox O2 Delivery O2 Flow Rate FiO2 01/17/25 14:50 76 16 100 01/17/25 13:00 98.0 159/89 (112) 98.0 01/17/25 07:00 Nasal Cannula 2.0 01/17/25 07:00 28 Intake/Output Intake and Output 01/17/25 07:00 Intake Total 251 ml Balance 251 ml Intake Oral 201 ml IV Total 50 ml # Bowel Movements 1 Exam HEENT pupils are reactive Neck is supple CV is S1-S2 regular rate and rhythm Respiratory diminished breath sounds bases with expiratory wheezing. GI positive bowel sound Extremity no edema BUTTONHOLE TACKER no motor deficit Medications Current Medications Medications Dose Ordered Sig/Carmen Route Start Time Stop Time Status Last Admin Dose Admin Multivit/Ca Carb/ B Cmplx/FA/Prenat 1 tab DAILY PO 01/12/25 10:00 01/17/25 11:32 1 TAB Sevelamer HCl 1,200 mg TIDWM PO 01/12/25 08:00 01/17/25 12:59 1,200 MG Famotidine 20 mg DAILY IV 01/12/25 10:00 01/17/25 11:30 20 MG Carvedilol 3.125 mg Q12HR PO 01/12/25 10:00 01/17/25 11:32 3.125 MG Atorvastatin Calcium 10 mg HS PO 01/12/25 22:00 01/16/25 21:56 10 MG Amiodarone HCl 200 mg DAILY PO 01/12/25 10:00 01/17/25 11:32 200 MG Apixaban 2.5 mg BID PO 01/12/25 10:00 01/17/25 11:32 2.5 MG Sodium Chloride 10 ml Q8HR IV 01/12/25 06:00 01/17/25 06:04 10 ML Acetaminophen/ Hydrocodone Bitart 1 tab Q4HP PRN PO 01/12/25 03:15 Ondansetron HCl 4 mg Q4HP PRN IV 01/12/25 03:15 Docusate Sodium 100 mg BIDPRN PRN PO 01/12/25 03:15 Acetaminophen 650 mg Q6HP PRN PO 01/12/25 03:15 01/12/25 17:45 650 MG Nitroglycerin 0.4 mg Q5MINP PRN SL 01/12/25 03:15 Morphine Sulfate 2 mg Q30M PRN IV 01/12/25 03:15 Ipratropium [place] 0.5 mg Q4HR NEB 01/12/25 14:00 01/17/25 14:40 0.5 MG Levalbuterol HCl 1.25 mg Q4HR NEB 01/12/25 14:00 01/17/25 14:40 1.25 MG Vancomycin HCl 0 ml @ 0 mls/hr UD IV 01/12/25 20:00 Hydralazine HCl 10 mg Q4HP PRN IV 01/17/25 12:00 Laboratory Results Laboratory Tests 01/13/25 06:31 01/16/25 05:22 01/17/25 05:20 Microbiology Microbiology Date/Time Source Procedure Growth Status 01/16/25 13:45 Blood Blood Culture - Preliminary NO GROWTH AFTER 24 HOURS OF INCUBATION. Resulted 01/16/25 12:06 Catheter Tip Other Aerobic Culture - Preliminary Resulted Assessment/Plan Assessment/Plan 79-year-old male with a known history of end-stage renal disease on hemodialysis, chronic respiratory failure on home O2, COPD, congestive heart failure, chronic AFib, history of previous CVA, chronic anemia who initially presented to the hospital with the increasing shortness a breath and increasing work of breathing found to have 1. Acute on chronic hypoxic respiratory failure secondary to acute COPD exacerbation 2. Acute COPD exacerbation 3. AFib with RVR CURRENTLY IMPROVED 4. MRSA bacteremia, REPEAT BLOOD CULTURES ARE NEGATIVE 5. Suspected pneumonia 6. End-stage renal disease on hemodialysis 7. Chronic congestive heart failure with diastolic dysfunction - repeat blood cultures, continue IV antibiotics, infectious disease consultation appreciated -med nebs, O2 supplementation. -PATIENT IS STATUS POST REMOVAL OF HEMODIALYSIS CATHETHER, NEW CATHETER WILL BE PLACED AFTER BLOOD CULTURES NEGATIVE FOR 72 HOURS. -physical therapy evaluation and treatment. -care will be transferred to [facility] team as patient is Medicare now. Plan discussed with: Patient My Orders Orders - GARLAND BLOUNT MD Procedure Category Date Status Time Hydralazine Injection PHA 01/17/25 In Process (Apresoline Inject 12:00 Vancomycin,Random LAB 01/18/25 Verified 04:00 Complete Blood Count LAB 01/18/25 Verified 04:00 Creatinine LAB 01/18/25 Verified 04:00 Vancomycin Per LULY 01/17/25 In Process Pharmacy Protoc 13:01 Transfer Service ORDERS 01/18/25 Transmitted 07:00 Date of Service: January 17, 2025 Billing Provider: GARLAND BLOUNT MD Common Visit Codes: NOT BILLABLE GARLAND BLOUNT MD January 17, 2025 15:12
--- NOTE | 2025-01-17 16:08 | DVHPN2 ---
Progress Note Date Seen: January 17, 2025 Resident Creating Document: BEATRIZ ROCK RESIDENT Medical Necessity Reason Pt with a Central, PICC or Fol: No Subjective Review of Systems Mr. Muñoz is a 79-year-old male with PMHx AFib on Eliquis, ESRD on hemodialysis with [facility] nephro Wednesday/Wednesday/Wednesday for the past 2 years, COPD not on home oxygen, history of stroke twice last 09/2023, denies diabetes mellitus, hypertension who presented to the ER with a chief complaint of shortness of breaths and generalized weakness. Patient is A&O x3, reports experiencing flu-like symptoms including fever, chills, generalized weakness and body ache for the past 3 weeks. He has been experiencing worsening shortness of breaths especially on exertion associated with sore throat and congestion, can not cough up the phlegm. Patient denies orthopnea, PND, chest pain, palpitations. Last hemodialysis session was on Wednesday per patient Patient reports making urine PMHx: AFib on Eliquis, ESRD on hemodialysis with [facility] nephro Wednesday/Wednesday/Wednesday for the past 2 years, COPD not on home oxygen, history of stroke twice last 09/2023, denies diabetes mellitus, hypertension Social history: Lives alone, does not have a caregiver, quit smoking more than 15 years back, previously heavy smoker, denies drinking or illicit drug use Home medications: Eliquis 2.5 mg b.i.d., aspirin, atorvastatin, metoprolol tartrate 50 mg, pantoprazole, sevelamer TID Patient seen and examined the bedside. Left subclavian tunneled cath draining purulent material, IR consulted for removal. 01/16 - patient is seen and examined at the bedside. Weaned of oxygen from 3 L to 1 L, Saturating 98 on 1 L oxygen. 2 L HD yesterday around 5pm. Tunneled catheter removed by IR. 01/17 - seen and examined at the bedside. Currently on 2 L oxygen supplementation. Blood culture 01/11 and 01/13 showing MRSA, 01/15/13 pending Objective vital signs Vital Sign Date Time Temp Pulse Resp B/P (MAP) Pulse Ox O2 Delivery O2 Flow Rate FiO2 01/17/25 14:50 76 16 100 01/17/25 13:00 98.0 159/89 (112) 98.0 01/17/25 07:00 Nasal Cannula 2.0 01/17/25 07:00 28 Total Intake and Output 01/16/25 01/16/25 01/17/25 15:00 23:00 07:00 Intake Total 50 ml 200 ml 1 ml Balance 50 ml 200 ml 1 ml medications Current Medications Medications Dose Ordered Sig/Carmen Route Start Time Stop Time Status Last Admin Dose Admin Multivit/Ca Carb/ B Cmplx/FA/Prenat 1 tab DAILY PO 01/12/25 10:00 01/17/25 11:32 1 TAB Sevelamer HCl 1,200 mg TIDWM PO 01/12/25 08:00 01/17/25 12:59 1,200 MG Famotidine 20 mg DAILY IV 01/12/25 10:00 01/17/25 11:30 20 MG Carvedilol 3.125 mg Q12HR PO 01/12/25 10:00 01/17/25 11:32 3.125 MG Atorvastatin Calcium 10 mg HS PO 01/12/25 22:00 01/16/25 21:56 10 MG Amiodarone HCl 200 mg DAILY PO 01/12/25 10:00 01/17/25 11:32 200 MG Apixaban 2.5 mg BID PO 01/12/25 10:00 01/17/25 11:32 2.5 MG Sodium Chloride 10 ml Q8HR IV 01/12/25 06:00 01/17/25 06:04 10 ML Acetaminophen/ Hydrocodone Bitart 1 tab Q4HP PRN PO 01/12/25 03:15 Ondansetron HCl 4 mg Q4HP PRN IV 01/12/25 03:15 Docusate Sodium 100 mg BIDPRN PRN PO 01/12/25 03:15 Acetaminophen 650 mg Q6HP PRN PO 01/12/25 03:15 01/12/25 17:45 650 MG Nitroglycerin 0.4 mg Q5MINP PRN SL 01/12/25 03:15 Morphine Sulfate 2 mg Q30M PRN IV 01/12/25 03:15 Ipratropium [place] 0.5 mg Q4HR NEB 01/12/25 14:00 01/17/25 14:40 0.5 MG Levalbuterol HCl 1.25 mg Q4HR NEB 01/12/25 14:00 01/17/25 14:40 1.25 MG Vancomycin HCl 0 ml @ 0 mls/hr UD IV 01/12/25 20:00 Hydralazine HCl 10 mg Q4HP PRN IV 01/17/25 12:00 Examination Obese male patient lying in the bed General: Obese, afebrile,, mucosae are moist Cardiovascular: Regular S1 and S2. No murmurs, gallops or rubs. No JVD elevation. 1+ bilateral pedal edema pitting. L subclavian tunneld cath draining purulent discharge Respiratory: Decreased bilateral air entry on nasal cannula supplementation Abdomen: Soft, nontender, nondistended, normoactive bowel sounds, no rebound tenderness, no organomegaly, no masses Genitourinary: Deferred MSK/skin: Mobilizes 4 limbs. Skin is dry and warm Psych/Mental Status: A/Ox3 laboratory and microbiology Laboratory Tests 01/17/25 05:20 01/16/25 05:22 01/13/25 06:31 Test 01/13/25 06:31 Range/Units Serum Glucose 116 H 74-106 mg/dL Microbiology Date/Time Source Procedure Growth Status 01/16/25 13:45 Blood Blood Culture - Preliminary NO GROWTH AFTER 24 HOURS OF INCUBATION. Resulted 01/16/25 12:06 Catheter Tip Other Aerobic Culture - Preliminary Resulted Labs and/or images reviewed: Labs reviewed by me, Image(s) reviewed by me Problem List/Assessment/Plan Problem List/Assessment/Plan ESRD on hemodialysis Wednesday/Wednesday/Wednesday Likely infected tunneled catheter MRSA bacteremia Macrocytic Anemia, likely secondary to ESRD Acute hypoxic respiratory failure Acute COPD exacerbation secondary to probable pneumonia Probable sepsis secondary to pneumonia Paroxysmal Atrial fibrillation-on Eliquis-currently sinus Lactic acidosis History of CVA History of diabetes-patient denies Hypertension GERD Plan: Continue daily blood cultures, we will reconsider putting a new tunneled catheter for hemodialysis once 3 consecutive blood cultures have been negative for 3 consecutive days Patient underwent left tunneled catheter removal 01/16. Follow up with culture results. Prelim catheter tip showing MRSA Patient underwent hemodialysis 01/12, and yesterday 01/15 - 2 L taken out WBC trended down to 7.8 01/11 blood culture showing MRSA, 01/13 prelim negative, blood cultures ordered 01/15 and 01/16, 01/17 Continue midodrine 10 mg TID Continue IV vancomycin and ceftriaxone Continue sevelamer t.i.d. Plan discussed with patient in which all questions have been answered Case discussed with Dr. Moyer Plan discussed with: Patient Dietary Evaluation Review Comments: 1) Continue liberalizing diet to renal standard diet 2) Consider Nepro Carb steady 240ml daily if PO intake <50% 3) Continue current POC Expected Outcomes/Goals: to meet at least 75% estimated needs fu 3-5 days BEATRIZ ROCK RESIDENT January 17, 2025 16:07
[2025-01-17] MEDS: hydrALAZINE HCL 20 MG/ML VL IV PRN (16:54)
--- NOTE | 2025-01-17 16:54 | DVHPN2 ---
Progress Note - Dictate Date Seen: January 17, 2025 Medical Necessity Reason Pt with a Central, PICC or Fol: No Subjective Patient was seen and evaluated in follow up. Patient's O2 was increased to 2 LPM NC. Blood cultures from 01/11 and 01/13 showing MRSA. Prelim repeat blood cultures from 01/15/13 are showing no growth. HGB 8, HCT 25.5, RN DISCHARGE 7.35. Telemetry reviewed. vital signs Vital Sign Date Time Temp Pulse Resp B/P (MAP) Pulse Ox O2 Delivery O2 Flow Rate FiO2 01/17/25 13:00 98.0 77 20 159/89 (112) 99 98.0 01/17/25 07:00 Nasal Cannula 2.0 01/17/25 07:00 28 Total Intake and Output 01/16/25 01/16/25 01/17/25 15:00 23:00 07:00 Intake Total 50 ml 200 ml 1 ml Balance 50 ml 200 ml 1 ml medications Current Medications Medications Dose Ordered Sig/Carmen Route Start Time Stop Time Status Last Admin Dose Admin Multivit/Ca Carb/ B Cmplx/FA/Prenat 1 tab DAILY PO 01/12/25 10:00 01/17/25 11:32 1 TAB Sevelamer HCl 1,200 mg TIDWM PO 01/12/25 08:00 01/17/25 12:59 1,200 MG Famotidine 20 mg DAILY IV 01/12/25 10:00 01/17/25 11:30 20 MG Carvedilol 3.125 mg Q12HR PO 01/12/25 10:00 01/17/25 11:32 3.125 MG Atorvastatin Calcium 10 mg HS PO 01/12/25 22:00 01/16/25 21:56 10 MG Amiodarone HCl 200 mg DAILY PO 01/12/25 10:00 01/17/25 11:32 200 MG Apixaban 2.5 mg BID PO 01/12/25 10:00 01/17/25 11:32 2.5 MG Sodium Chloride 10 ml Q8HR IV 01/12/25 06:00 01/17/25 06:04 10 ML Acetaminophen/ Hydrocodone Bitart 1 tab Q4HP PRN PO 01/12/25 03:15 Ondansetron HCl 4 mg Q4HP PRN IV 01/12/25 03:15 Docusate Sodium 100 mg BIDPRN PRN PO 01/12/25 03:15 Acetaminophen 650 mg Q6HP PRN PO 01/12/25 03:15 01/12/25 17:45 650 MG Nitroglycerin 0.4 mg Q5MINP PRN SL 01/12/25 03:15 Morphine Sulfate 2 mg Q30M PRN IV 01/12/25 03:15 Ipratropium [place] 0.5 mg Q4HR NEB 01/12/25 14:00 01/17/25 11:04 0.5 MG Levalbuterol HCl 1.25 mg Q4HR NEB 01/12/25 14:00 01/17/25 11:04 1.25 MG Vancomycin HCl 0 ml @ 0 mls/hr UD IV 01/12/25 20:00 Hydralazine HCl 10 mg Q4HP PRN IV 01/17/25 12:00 objective GENERAL: Alert and oriented x 3. No acute distress.. EYES: PERRL, EOMI. Anicteric. HENT: Moist mucous membranes. LUNGS: Decreased breath sounds. CARDIOVASCULAR: Regular rate and rhythm. ABDOMEN: Soft, nontender and nondistended. EXTREMITIES: No edema. NEUROLOGIC: No focal neurological deficits. SKIN: Warm, dry. laboratory and microbiology Laboratory Tests 01/17/25 05:20 01/16/25 05:22 01/13/25 06:31 Test 01/13/25 06:31 Range/Units Serum Glucose 116 H 74-106 mg/dL Problem List Atrial fibrillation with RVR. Sepsis, unspecified organism. End-stage renal disease on hemodialysis. Generalized weakness. Assessment/Plan Continued all current supportive medical care. Morphine and [place] for pain management. Amiodarone. Eliquis. Lipitor. Coreg. IV antibiotics as ordered. Additional plan as per the hospital course. Dietary Evaluation Review Comments: 1) Continue liberalizing diet to renal standard diet 2) Consider Nepro Carb steady 240ml daily if PO intake <50% 3) Continue current POC Expected Outcomes/Goals: to meet at least 75% estimated needs fu 3-5 days Plan discussed with: Patient ANASTASIYA KOLB MD January 17, 2025 14:22
--- NOTE | 2025-01-17 21:25 | DVHPN2 ---
Progress Note - Dictate Date Seen: January 17, 2025 Medical Necessity Reason Pt with a Central, PICC or Fol: No Subjective Patient seen and examined at bedside. Remains on supplemental oxygen Overnight events reviewed. vital signs Vital Sign Date Time Temp Pulse Resp B/P (MAP) Pulse Ox O2 Delivery O2 Flow Rate FiO2 01/17/25 18:16 95 18 100 01/17/25 18:08 Nasal Cannula 1.0 01/17/25 18:08 24 01/17/25 17:00 98.3 171/72 (105) 98.3 Total Intake and Output 01/16/25 01/16/25 01/17/25 15:00 23:00 07:00 Intake Total 50 ml 200 ml 1 ml Balance 50 ml 200 ml 1 ml medications Current Medications Medications Dose Ordered Sig/Carmen Route Start Time Stop Time Status Last Admin Dose Admin Multivit/Ca Carb/ B Cmplx/FA/Prenat 1 tab DAILY PO 01/12/25 10:00 01/17/25 11:32 1 TAB Sevelamer HCl 1,200 mg TIDWM PO 01/12/25 08:00 01/17/25 19:59 1,200 MG Famotidine 20 mg DAILY IV 01/12/25 10:00 01/17/25 11:30 20 MG Carvedilol 3.125 mg Q12HR PO 01/12/25 10:00 01/17/25 11:32 3.125 MG Atorvastatin Calcium 10 mg HS PO 01/12/25 22:00 01/16/25 21:56 10 MG Amiodarone HCl 200 mg DAILY PO 01/12/25 10:00 01/17/25 11:32 200 MG Apixaban 2.5 mg BID PO 01/12/25 10:00 01/17/25 11:32 2.5 MG Sodium Chloride 10 ml Q8HR IV 01/12/25 06:00 01/17/25 16:56 10 ML Acetaminophen/ Hydrocodone Bitart 1 tab Q4HP PRN PO 01/12/25 03:15 Ondansetron HCl 4 mg Q4HP PRN IV 01/12/25 03:15 Docusate Sodium 100 mg BIDPRN PRN PO 01/12/25 03:15 Acetaminophen 650 mg Q6HP PRN PO 01/12/25 03:15 01/12/25 17:45 650 MG Nitroglycerin 0.4 mg Q5MINP PRN SL 01/12/25 03:15 Morphine Sulfate 2 mg Q30M PRN IV 01/12/25 03:15 Ipratropium [place] 0.5 mg Q4HR NEB 01/12/25 14:00 01/17/25 18:08 0.5 MG Levalbuterol HCl 1.25 mg Q4HR NEB 01/12/25 14:00 01/17/25 18:08 1.25 MG Vancomycin HCl 0 ml @ 0 mls/hr UD IV 01/12/25 20:00 Hydralazine HCl 10 mg Q4HP PRN IV 01/17/25 12:00 01/17/25 16:54 10 MG objective Gen.: Patient lying in bed in no apparent distress. On supplemental oxygen. Head: Normocephalic, atraumatic. Eyes: EOMI/PERRLA. Ears: Normal hearing. Normal anatomy. Neck/trachea: Trachea midline, supple. Nose: Normal external anatomy. Mouth: Moist mucous membranes. Chest: Decreased air entry bilaterally. No wheezing or rhonchi. Cardiovascular: Positive S1, positive S2. Regular rate and rhythm. Abdomen: Positive bowel sounds in all 4 quadrants. Soft, non-tender, non- distended. : Deferred. Rectal: Deferred. Skin: Warm, dry. Intact. Extremities: 2+ radial pulses bilaterally. No lower extremity edema. Neuro: Awake, alert, oriented x3. No gross motor or sensory deficits. Cranial nerves II through XII intact. Gait not assessed. laboratory and microbiology Laboratory Tests 01/17/25 05:20 01/16/25 05:22 01/13/25 06:31 Test 01/13/25 06:31 Range/Units Serum Glucose 116 H 74-106 mg/dL Assessment/Plan Impression: Acute hypoxic respiratory failure Dependence on supplemental oxygen Atrial fibrillation with rapid ventricular response End-stage renal disease, on hemodialysis Congestive heart failure Bacteremia with GPC in clusters Obesity BMI 32.6 Events: Remains on supplemental oxygen, 2 LPM NC Taper O2 as tolerated Patient had tunneled catheter removed by IR yesterday. Cultured tip. Prelim catheter tip showing MRSA. No overnight events Continue amiodarone PO Continue bronchodilators Incentive spirometry Continue antibiotics. WBC currently 8.7 k Positive blood cultures - MRSA Repeat blood cultures show no growth x2 sets ID recommendations appreciated. Monitor hemoglobin Pepcid for GI prophylaxis HD per Nephrology Monitor renal function. Monitor electrolytes. Supplement as necessary Monitor potassium. Nephro recs appreciated. Labs and imaging reviewed. Rest of plan as noted below Plan: Supplemental oxygen Titrate to keep O2 sats above 92%. Continue bronchodilators. Continue antibiotics Accu-Cheks, ISS HD per Nephrology Nephrology recs appreciated. Monitor renal function. Monitor electrolytes. Supplement as necessary. Monitor ins and outs. DVT prophylaxis. Prognosis: Poor given patient's multiple co-morbidities. Rest of plan per hospitalist and other consultants. Thank you, Dr. Iyer, for allowing me to participate in this patient's care. Further recommendations will depend on the patient's clinical course. Please do not hesitate to contact me if you have any questions or concerns. This medical document was created using an electronic medical record system with [employer] dictation system. Although these documentations are being carefully reviewed, there may still be some phonetic and typographical changes. The errors are purely typographical, due to imperfection on the software program, and do not reflect any compromise in the patient's medical care. Dietary Evaluation Review Comments: 1) Continue liberalizing diet to renal standard diet 2) Consider Nepro Carb steady 240ml daily if PO intake <50% 3) Continue current POC Expected Outcomes/Goals: to meet at least 75% estimated needs fu 3-5 days Plan discussed with: Patient, Other (ALFIE Gupta) JUANITO ADAMS MD January 17, 2025 21:25
[2025-01-17] MEDS: HYDROcodone-ACET 5/325MG TAB PO PRN (23:19)
[2025-01-18] VITALS (21 sets, daily range): BP systolic 141–171; BP diastolic 70–85; PULSE 77–96; RESP 12–26; TEMP 97.9–98.7; O2SAT 96–100
[2025-01-18 05:24] LABS: Basophils # (auto) 0.1 10 ^3/uL (0-0.2); Eosinophils # (auto) 0.6 10 ^3/uL (0-0.8); Lymphocytes # (auto) 1.1 10 ^3/uL (0.4-5.4); Mean Corpuscular Hemoglobin 32.4 pg (28.0-32.0); Neutrophils # (auto) 7.1 10 ^3/uL (1.6-8.6); White Blood Cell 9.8 10^3/uL (4.4-10.8)
[2025-01-18 05:26] LABS: Basophils % (auto) 0.9 % (0.0-2.0); Eosinophils % (auto) 6.2 % (0.0-7.0); Hematocrit 25.2 % (41.0-53.0); Lymphocytes % (auto) 11.2 % (10.0-50.0); Mean Corpuscular Hgb Conc. 31.9 g/dL (32.0-36.0); Mean Corpuscular Volume 101.5 fL (80.0-100.0); Monocytes # (auto) 0.9 10 ^3/uL (0-1.3); Monocytes % (auto) 9.1 % (0.0-12.0); Neutrophils % (auto) 72.6 % (37.0-80.0); Platelet Count (auto) 267 10^3/uL (140-450); Red Blood Cells 2.48 10^6/uL (4.5-5.90); Red Cell Distribution Width 18.2 % (11.8-14.3)
[2025-01-18 05:33] LABS: Anion Gap 13 (5-15); Calcium 8.5 mg/dL (8.7-10.4); Carbon Dioxide 26 mmol/L (20-31); Chloride 101 mmol/L (98-107); Sodium 140 mmol/L (136-145)
[2025-01-18 05:38] LABS: BUN/Creatinine Ratio 7.6 (10.0-20.0); Glucose 95 mg/dL (74-106)
[2025-01-18 05:41] LABS: Blood Urea Nitrogen 62 mg/dL (9-23)
[2025-01-18] MEDS: SODIUM CHL 0.9% 1000 ML BAG XX ONE (11:04)
--- NOTE | 2025-01-18 12:24 | DVHPN2 ---
Reviewed: Care Plan, H&P, Labs, Medications, Previous Orders, Radiology Changes from previous H/P or p: No Changes Eyes: No Pain, No Vision change, No Conjunctivae inflammation, No Eyelid inflammation, No Other, No Redness ENT: No Ear pain, No Ear discharge, No Nose pain, No Nose discharge, No Nose congestion, No Mouth pain, No Mouth swelling, No Throat pain, No Throat swelling, No Other Cardiovascular: No Chest Pain, No Palpitations, No Orthopnea, No Paroxysmal Noc. Dyspnea, No Edema, No Lt Headedness, No Other Respiratory: No Cough, No Dry; Shortness of breath; No SOB with excertion, No Wheezing, No Hemoptysis, No Pleuritic Pain, No Sputum, No Other Gastrointestinal: No Nausea, No Vomiting, No Abdominal Pain, No Diarrhea, No Constipation, No Melena, No Hematochezia, No Other Genitourinary: No Dysuria, No Frequency, No Incontinence, No Hematuria, No Retention, No Other Musculoskeletal: No other, No neck pain, No shoulder pain, No arm pain, No back pain, No hand pain, No leg pain, No foot pain Skin: No Rash, No Lesions, No Jaundice, No Bruising, No Other Objective Vitals Vital Signs Date Time Temp Pulse Resp B/P (MAP) Pulse Ox O2 Delivery O2 Flow Rate FiO2 01/18/25 10:45 87 163/83 01/18/25 10:34 18 100 01/18/25 10:28 Nasal Cannula* 1 24 01/18/25 09:00 98.1 98.1 Intake/Output Intake and Output 01/18/25 07:00 Intake Total 1650 ml Balance 1650 ml Intake Oral 1550 ml IV Total 100 ml # Voids 6 # Bowel Movements 1 Medications Current Medications Medications Dose Ordered Sig/Carmen Route Start Time Stop Time Status Last Admin Dose Admin Multivit/Ca Carb/ B Cmplx/FA/Prenat 1 tab DAILY PO 01/12/25 10:00 01/18/25 10:43 1 TAB Sevelamer HCl 1,200 mg TIDWM PO 01/12/25 08:00 01/18/25 10:43 1,200 MG Famotidine 20 mg DAILY IV 01/12/25 10:00 01/18/25 10:41 20 MG Carvedilol 3.125 mg Q12HR PO 01/12/25 10:00 01/18/25 10:45 3.125 MG Atorvastatin Calcium 10 mg HS PO 01/12/25 22:00 01/17/25 22:00 10 MG Amiodarone HCl 200 mg DAILY PO 01/12/25 10:00 01/18/25 10:46 200 MG Apixaban 2.5 mg BID PO 01/12/25 10:00 01/18/25 10:46 2.5 MG Sodium Chloride 10 ml Q8HR IV 01/12/25 06:00 01/18/25 06:15 10 ML Acetaminophen/ Hydrocodone Bitart 1 tab Q4HP PRN PO 01/12/25 03:15 01/17/25 23:19 1 TAB Ondansetron HCl 4 mg Q4HP PRN IV 01/12/25 03:15 Docusate Sodium 100 mg BIDPRN PRN PO 01/12/25 03:15 Acetaminophen 650 mg Q6HP PRN PO 01/12/25 03:15 01/12/25 17:45 650 MG Nitroglycerin 0.4 mg Q5MINP PRN SL 01/12/25 03:15 Morphine Sulfate 2 mg Q30M PRN IV 01/12/25 03:15 Ipratropium [place] 0.5 mg Q4HR NEB 01/12/25 14:00 01/18/25 10:28 0.5 MG Levalbuterol HCl 1.25 mg Q4HR NEB 01/12/25 14:00 01/18/25 10:28 1.25 MG Vancomycin HCl 0 ml @ 0 mls/hr UD IV 01/12/25 20:00 Hydralazine HCl 10 mg Q4HP PRN IV 01/17/25 12:00 01/17/25 16:54 10 MG Laboratory Results Laboratory Tests 01/18/25 05:00 Chemistry Test 01/18/25 05:00 Calcium Level 8.5 mg/dL (8.7-10.4) L Microbiology Microbiology Date/Time Source Procedure Growth Status 01/16/25 13:45 Blood Blood Culture - Preliminary NO GROWTH AFTER 24 HOURS OF INCUBATION. Resulted 01/16/25 12:06 Catheter Tip Other Aerobic Culture - Final Methicillin Resistant S.aureus Complete Labs and/or images reviewed: Labs reviewed by me, Image(s) reviewed by me Assessment/Plan Assessment/Plan Care Transferred from Dr. Iyer to Dr. Rolo Vazquez on 01/18/25 1. Acute on chronic hypoxic respiratory failure secondary to acute COPD exacerbation: Pulmonary consult by Dr. Ferreira appreciated 2. Acute COPD exacerbation 3. AFib with RVR CURRENTLY IMPROVED: Cardiology consult by Dr. Lyle appreciated 4. MRSA bacteremia, treated with vancomycin, REPEAT BLOOD CULTURES ARE NEGATIVE 5. Suspected pneumonia 6. End-stage renal disease on hemodialysis, Nephrology consult for dialysis 7. Chronic congestive heart failure with diastolic dysfunction Patient To get New dialysis cath as the blood cultures have been negative Status Post removal of infected left tunneled dialysis cath on 01/15 Time Spent 70 minutes Advanced care planning time 20 minutes Patient is full code Plan discussed with: Patient Date of Service: January 18, 2025 Billing Provider: ROLO VAZQUEZ MD Common Visit Codes: [id number] CARE 30-74 MIN ROLO VAZQUEZ MD January 18, 2025 12:24
--- NOTE | 2025-01-18 14:42 | DVHPN2 ---
Progress Note - Dictate Date Seen: January 18, 2025 Medical Necessity Reason Pt with a Central, PICC or Fol: No Subjective Patient was seen and evaluated in follow up. Patient appears comfortable in bed. Patient is currently on 1 LPM NC. HGB 8, HCT 25.2, BUN 62, MANAGER LINE 8.16, CA 8.5. Telemetry reviewed. vital signs Vital Sign Date Time Temp Pulse Resp B/P (MAP) Pulse Ox O2 Delivery O2 Flow Rate FiO2 01/18/25 10:45 87 163/83 01/18/25 10:34 18 100 01/18/25 10:28 Nasal Cannula* 1 24 01/18/25 09:00 98.1 98.1 Total Intake and Output 01/17/25 01/17/25 01/18/25 15:00 23:00 07:00 Intake Total 1050 ml 600 ml Balance 1050 ml 600 ml medications Current Medications Medications Dose Ordered Sig/Carmen Route Start Time Stop Time Status Last Admin Dose Admin Multivit/Ca Carb/ B Cmplx/FA/Prenat 1 tab DAILY PO 01/12/25 10:00 01/18/25 10:43 1 TAB Sevelamer HCl 1,200 mg TIDWM PO 01/12/25 08:00 01/18/25 10:43 1,200 MG Famotidine 20 mg DAILY IV 01/12/25 10:00 01/18/25 10:41 20 MG Carvedilol 3.125 mg Q12HR PO 01/12/25 10:00 01/18/25 10:45 3.125 MG Atorvastatin Calcium 10 mg HS PO 01/12/25 22:00 01/17/25 22:00 10 MG Amiodarone HCl 200 mg DAILY PO 01/12/25 10:00 01/18/25 10:46 200 MG Apixaban 2.5 mg BID PO 01/12/25 10:00 01/18/25 10:46 2.5 MG Sodium Chloride 10 ml Q8HR IV 01/12/25 06:00 01/18/25 06:15 10 ML Acetaminophen/ Hydrocodone Bitart 1 tab Q4HP PRN PO 01/12/25 03:15 01/17/25 23:19 1 TAB Ondansetron HCl 4 mg Q4HP PRN IV 01/12/25 03:15 Docusate Sodium 100 mg BIDPRN PRN PO 01/12/25 03:15 Acetaminophen 650 mg Q6HP PRN PO 01/12/25 03:15 01/12/25 17:45 650 MG Nitroglycerin 0.4 mg Q5MINP PRN SL 01/12/25 03:15 Morphine Sulfate 2 mg Q30M PRN IV 01/12/25 03:15 Ipratropium [place] 0.5 mg Q4HR NEB 01/12/25 14:00 01/18/25 10:28 0.5 MG Levalbuterol HCl 1.25 mg Q4HR NEB 01/12/25 14:00 01/18/25 10:28 1.25 MG Vancomycin HCl 0 ml @ 0 mls/hr UD IV 01/12/25 20:00 Hydralazine HCl 10 mg Q4HP PRN IV 01/17/25 12:00 01/17/25 16:54 10 MG objective GENERAL: Alert and oriented x 3. No acute distress.. EYES: PERRL, EOMI. Anicteric. HENT: Moist mucous membranes. LUNGS: Decreased breath sounds. CARDIOVASCULAR: Regular rate and rhythm. ABDOMEN: Soft, nontender and nondistended. EXTREMITIES: No edema. NEUROLOGIC: No focal neurological deficits. SKIN: Warm, dry. laboratory and microbiology Laboratory Tests 01/18/25 05:00 Test 01/18/25 05:00 Range/Units Serum Glucose 95 74-106 mg/dL Problem List Atrial fibrillation with RVR. Sepsis, unspecified organism. End-stage renal disease on hemodialysis. Generalized weakness. Assessment/Plan Continued all current supportive medical care. Morphine and [place] for pain management. Amiodarone. Eliquis. Lipitor. Coreg. IV antibiotics as ordered. IV Hydralazine for SBP > 160. Additional plan as per the hospital course. Dietary Evaluation Review Comments: 1) Continue liberalizing diet to renal standard diet 2) Consider Nepro Carb steady 240ml daily if PO intake <50% 3) Continue current POC Expected Outcomes/Goals: to meet at least 75% estimated needs fu 3-5 days Plan discussed with: Patient ANASTASIYA KOLB MD January 18, 2025 11:31
[2025-01-18 14:47] LABS: INR 1.03 (0.9-1.15); Partial Thromboplastin Time 23.6 SEC (24.5-34.5); Prothrombin Time 10.9 sec (9.3-11.8)
--- NOTE | 2025-01-18 17:01 | DVHPN2 ---
Consult Progress Note Date Seen: January 17, 2025 Subjective Patient reports: Other (off all oxygen and no longer tachycardic) Objective vital signs Vital Sign Date Time Temp Pulse Resp B/P (MAP) Pulse Ox O2 Delivery O2 Flow Rate FiO2 01/18/25 15:28 77 26 100 01/18/25 15:22 Room Air* 0 21 01/18/25 13:00 98.7 171/83 (112) 98.7 Total Intake and Output 01/17/25 01/17/25 01/18/25 15:00 23:00 07:00 Intake Total 1050 ml 600 ml Balance 1050 ml 600 ml medications Current Medications Medications Dose Ordered Sig/Carmen Route Start Time Stop Time Status Last Admin Dose Admin Multivit/Ca Carb/ B Cmplx/FA/Prenat 1 tab DAILY PO 01/12/25 10:00 01/18/25 10:43 1 TAB Sevelamer HCl 1,200 mg TIDWM PO 01/12/25 08:00 01/18/25 10:43 1,200 MG Famotidine 20 mg DAILY IV 01/12/25 10:00 01/18/25 10:41 20 MG Carvedilol 3.125 mg Q12HR PO 01/12/25 10:00 01/18/25 10:45 3.125 MG Atorvastatin Calcium 10 mg HS PO 01/12/25 22:00 01/17/25 22:00 10 MG Amiodarone HCl 200 mg DAILY PO 01/12/25 10:00 01/18/25 10:46 200 MG Apixaban 2.5 mg BID PO 01/12/25 10:00 01/18/25 10:46 2.5 MG Sodium Chloride 10 ml Q8HR IV 01/12/25 06:00 01/18/25 14:00 10 ML Acetaminophen/ Hydrocodone Bitart 1 tab Q4HP PRN PO 01/12/25 03:15 01/17/25 23:19 1 TAB Ondansetron HCl 4 mg Q4HP PRN IV 01/12/25 03:15 Docusate Sodium 100 mg BIDPRN PRN PO 01/12/25 03:15 Acetaminophen 650 mg Q6HP PRN PO 01/12/25 03:15 01/12/25 17:45 650 MG Nitroglycerin 0.4 mg Q5MINP PRN SL 01/12/25 03:15 Morphine Sulfate 2 mg Q30M PRN IV 01/12/25 03:15 Ipratropium [place] 0.5 mg Q4HR NEB 01/12/25 14:00 01/18/25 15:22 0.5 MG Levalbuterol HCl 1.25 mg Q4HR NEB 01/12/25 14:00 01/18/25 15:22 1.25 MG Vancomycin HCl 0 ml @ 0 mls/hr UD IV 01/12/25 20:00 Hydralazine HCl 10 mg Q4HP PRN IV 01/17/25 12:00 01/17/25 16:54 10 MG Physical Exam: General: NAD Neck: Supple. No masses. HEENT: PERRL. Normal lids and conjunctiva. Moist mucous membranes. Oropharynx without lesions, exudates or excessive erythema. Normal appearance of the external aspects of the nose and ears. Heart: Regular rhythm, normal rate. No murmur. No lower extremity edema. Lungs: Normal respiratory effort. Clear to auscultation bilaterally. No wheezes. No crackles. Abdomen: Soft. Non-tender. Non-distended. No masses or abdominal hernia. Msk: No digital cyanosis. Normal strength and tone in all 4 limbs. Skin: Warm and dry, no rashes. Tenderness at left chest wall dialysis catheter site. Neuro: Alert. No facial droop or slurred speech. Extra-ocular movements intact. Sensation intact to soft touch in all 4 limbs. Chronic left/right-sided deficits. Psych: Appropriate mood. Full affect. Oriented to person, place, time, and situation. laboratory and microbiology Laboratory Tests 01/18/25 05:00 Test 01/18/25 05:00 Range/Units Serum Glucose 95 74-106 mg/dL Problem List/Assessment/Plan Problems(with codes): (1) Nausea (2) Metabolic encephalopathy (3) ESRD (end stage renal disease) on dialysis (4) Altered mental status (5) Weakness (6) Leukocytosis Problem List/Assessment/Plan ASSESSMENT AND PLAN: ID Problem List: - Catheter-associated MRSA bacteremia - Severe sepsis - End-stage renal disease on hemodialysis - History of stroke with left-sided deficits (also noted as right-sided deficits in parts of transcript; clarify later if needed) COPD - Diabetes mellitus - Hypertension - Congestive heart failure Assessment: Mr. 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 On admission, laboratory findings were significant for leukocytosis (WBC 15.1), Hct 10.8, platelets 207, sodium 139, BUN 27, creatinine 4.64, glucose 101, and lactic acid 2.4. Physical examination notes obesity and left chest wall dialysis catheter site tenderness. The patient developed hypotension (BP decreased from 174/94 to 98/54) and tachycardia (HR 121 improved to 78 post-fluid bolus), as well as hypoxemia (SpO2 79% on 6L NC) with tachypnea (RR 32). Blood cultures returned positive for MRSA in 4/4 bottles (drawn 01/11 and 01/12); subsequent cultures after catheter removal have been negative for >72 hours as of 01/13. Chest imaging notes removal of the right internal jugular central line, placement of hemodialysis catheter in the left chest wall with tip in distal SVC, and mildly prominent bronchovascular markings left perihilar lobe. No acute/clear evidence of pulmonary infiltrate. Echocardiogram was limited by body habitus but showed aortic stenosis (valve area 1.4 cm), dyskinesis of interventricular septum, mild LVH, mild left ventricular diastolic dysfunction, and mildly dilated right-sided chambers. 01/15: patients blood cultures continue to be negative , catheter cultures are pending 01/16:catheter cultures are are showing staph aureus 01/17: improved signs of sepsis and bacteremia is clearing Plan: - recommend ANGEL at this time to rule out worsening potential endocarditis - once blood cultures are negative for 72 hours can replace the dialysis catheter line - patient will need vancomycin as outpatient for a minimum of 4-6 weeks -Continue intravenous vancomycin; patient appears to be responding well - Catheter removal has been performed; plan to replace dialysis line after ?72 hours of negative blood cultures - Once negative cultures maintained for at least 72 hours, initiate a 46 week course of IV vancomycin - Transesophageal echocardiogram (ANGEL) is planned to rule out endocarditis, as transthoracic study was inconclusive and suspicion remains elevated - Monitor daily blood cultures until negative clearance confirmed - Monitor for clinical stability and resolution of sepsis - Dialysis to continue per M/W/ schedule; ensure line access as above - No evidence of pulmonary infection or viral etiologies (Flu A, Flu B, COVID-19 all negative) - Supportive care including oxygen and fluid management as needed Isolation Precautions: Standard Plan discussed with: Other Dietary Evaluation Review Comments: 1) Continue liberalizing diet to renal standard diet 2) Consider Nepro Carb steady 240ml daily if PO intake <50% 3) Continue current POC Expected Outcomes/Goals: to meet at least 75% estimated needs fu 3-5 days RG STEVE MD January 18, 2025 17:01
--- NOTE | 2025-01-18 19:52 | DVHPN2 ---
Progress Note Date Seen: January 18, 2025 Medical Necessity Reason Pt with a Central, PICC or Fol: No Subjective Patient reports: No new complaints Review of Systems: Deferred Objective vital signs Vital Sign Date Time Temp Pulse Resp B/P (MAP) Pulse Ox O2 Delivery O2 Flow Rate FiO2 01/18/25 19:00 88 18 100 01/18/25 16:59 98.5 171/81 (111) 98.5 01/18/25 15:22 Room Air* 0 21 Total Intake and Output 01/17/25 01/17/25 01/18/25 15:00 23:00 07:00 Intake Total 1050 ml 600 ml Balance 1050 ml 600 ml medications Current Medications Medications Dose Ordered Sig/Carmen Route Start Time Stop Time Status Last Admin Dose Admin Multivit/Ca Carb/ B Cmplx/FA/Prenat 1 tab DAILY PO 01/12/25 10:00 01/18/25 10:43 1 TAB Sevelamer HCl 1,200 mg TIDWM PO 01/12/25 08:00 01/18/25 16:53 1,200 MG Famotidine 20 mg DAILY IV 01/12/25 10:00 01/18/25 10:41 20 MG Carvedilol 3.125 mg Q12HR PO 01/12/25 10:00 01/18/25 10:45 3.125 MG Atorvastatin Calcium 10 mg HS PO 01/12/25 22:00 01/17/25 22:00 10 MG Amiodarone HCl 200 mg DAILY PO 01/12/25 10:00 01/18/25 10:46 200 MG Apixaban 2.5 mg BID PO 01/12/25 10:00 01/18/25 10:46 2.5 MG Sodium Chloride 10 ml Q8HR IV 01/12/25 06:00 01/18/25 14:00 10 ML Acetaminophen/ Hydrocodone Bitart 1 tab Q4HP PRN PO 01/12/25 03:15 01/17/25 23:19 1 TAB Ondansetron HCl 4 mg Q4HP PRN IV 01/12/25 03:15 Docusate Sodium 100 mg BIDPRN PRN PO 01/12/25 03:15 Acetaminophen 650 mg Q6HP PRN PO 01/12/25 03:15 01/12/25 17:45 650 MG Nitroglycerin 0.4 mg Q5MINP PRN SL 01/12/25 03:15 Morphine Sulfate 2 mg Q30M PRN IV 01/12/25 03:15 Ipratropium [place] 0.5 mg Q4HR NEB 01/12/25 14:00 01/18/25 18:59 0.5 MG Levalbuterol HCl 1.25 mg Q4HR NEB 01/12/25 14:00 01/18/25 18:59 1.25 MG Vancomycin HCl 0 ml @ 0 mls/hr UD IV 01/12/25 20:00 Hydralazine HCl 10 mg Q4HP PRN IV 01/17/25 12:00 01/18/25 16:52 10 MG laboratory and microbiology Laboratory Tests 01/18/25 05:00 Test 01/18/25 05:00 Range/Units Serum Glucose 95 74-106 mg/dL Microbiology Date/Time Source Procedure Growth Status 01/17/25 13:02 Blood Blood Culture - Preliminary NO GROWTH AFTER 24 HOURS OF INCUBATION. Resulted 01/16/25 12:06 Catheter Tip Other Aerobic Culture - Final Methicillin Resistant S.aureus Complete Problem List/Assessment/Plan Problem List/Assessment/Plan ESRD on hemodialysis Wednesday/Wednesday/Wednesday Central line associated bloodstream infection MRSA bacteremia Macrocytic Anemia, likely secondary to ESRD Acute hypoxic respiratory failure Acute COPD exacerbation secondary to probable pneumonia Probable sepsis secondary to pneumonia Paroxysmal Atrial fibrillation-on Eliquis-currently sinus Lactic acidosis History of CVA History of diabetes-patient denies Hypertension GERD Plan: Patient underwent left tunneled catheter removal 01/16. cx ngtd since Cultures remain negative until tomorrow HD catheter will be placed and dialysis tomorrow Plan discussed with: Patient Dietary Evaluation Review Comments: 1) Continue liberalizing diet to renal standard diet 2) Consider Nepro Carb steady 240ml daily if PO intake <50% 3) Continue current POC Expected Outcomes/Goals: to meet at least 75% estimated needs fu 3-5 days MAHESH GIPSON MD January 18, 2025 19:52
--- NOTE | 2025-01-18 22:57 | DVHPN2 ---
Progress Note - Dictate Date Seen: January 18, 2025 Medical Necessity Reason Pt with a Central, PICC or Fol: No Subjective Patient seen and examined at bedside. On supplemental oxygen Overnight events reviewed. vital signs Vital Sign Date Time Temp Pulse Resp B/P (MAP) Pulse Ox O2 Delivery O2 Flow Rate FiO2 01/18/25 22:24 162/85 01/18/25 22:18 95 01/18/25 22:07 18 100 01/18/25 21:00 98.5 98.5 01/18/25 15:22 Room Air* 0 21 Total Intake and Output 01/17/25 01/17/25 01/18/25 15:00 23:00 07:00 Intake Total 1050 ml 600 ml Balance 1050 ml 600 ml medications Current Medications Medications Dose Ordered Sig/Carmen Route Start Time Stop Time Status Last Admin Dose Admin Multivit/Ca Carb/ B Cmplx/FA/Prenat 1 tab DAILY PO 01/12/25 10:00 01/18/25 10:43 1 TAB Sevelamer HCl 1,200 mg TIDWM PO 01/12/25 08:00 01/18/25 16:53 1,200 MG Famotidine 20 mg DAILY IV 01/12/25 10:00 01/18/25 10:41 20 MG Carvedilol 3.125 mg Q12HR PO 01/12/25 10:00 01/18/25 22:18 3.125 MG Atorvastatin Calcium 10 mg HS PO 01/12/25 22:00 01/18/25 22:24 10 MG Amiodarone HCl 200 mg DAILY PO 01/12/25 10:00 01/18/25 10:46 200 MG Apixaban 2.5 mg BID PO 01/12/25 10:00 01/18/25 22:18 2.5 MG Sodium Chloride 10 ml Q8HR IV 01/12/25 06:00 01/18/25 22:38 10 ML Acetaminophen/ Hydrocodone Bitart 1 tab Q4HP PRN PO 01/12/25 03:15 01/17/25 23:19 1 TAB Ondansetron HCl 4 mg Q4HP PRN IV 01/12/25 03:15 Docusate Sodium 100 mg BIDPRN PRN PO 01/12/25 03:15 Acetaminophen 650 mg Q6HP PRN PO 01/12/25 03:15 01/12/25 17:45 650 MG Nitroglycerin 0.4 mg Q5MINP PRN SL 01/12/25 03:15 Morphine Sulfate 2 mg Q30M PRN IV 01/12/25 03:15 Ipratropium [place] 0.5 mg Q4HR NEB 01/12/25 14:00 01/18/25 22:05 0.5 MG Levalbuterol HCl 1.25 mg Q4HR NEB 01/12/25 14:00 01/18/25 22:05 1.25 MG Vancomycin HCl 0 ml @ 0 mls/hr UD IV 01/12/25 20:00 Hydralazine HCl 10 mg Q4HP PRN IV 01/17/25 12:00 01/18/25 22:24 10 MG objective Gen.: Patient lying in bed in no apparent distress. On supplemental oxygen Head: Normocephalic, atraumatic. Eyes: EOMI/PERRLA. Ears: Normal hearing. Normal anatomy. Neck/trachea: Trachea midline, supple. Nose: Normal external anatomy. Mouth: Moist mucous membranes. Chest: Decreased air entry bilaterally. No wheezing or rhonchi. Cardiovascular: Positive S1, positive S2. Regular rate and rhythm. Abdomen: Positive bowel sounds in all 4 quadrants. Soft, non-tender, non- distended. : Deferred. Rectal: Deferred. Skin: Warm, dry. Intact. Extremities: 2+ radial pulses bilaterally. No lower extremity edema. Neuro: Awake, alert, oriented x3. No gross motor or sensory deficits. Cranial nerves II through XII intact. Gait not assessed. laboratory and microbiology Laboratory Tests 01/18/25 05:00 Test 01/18/25 05:00 Range/Units Serum Glucose 95 74-106 mg/dL Assessment/Plan Impression: Acute hypoxic respiratory failure Dependence on supplemental oxygen Atrial fibrillation with rapid ventricular response End-stage renal disease, on hemodialysis Congestive heart failure Bacteremia with GPC in clusters Obesity BMI 32.6 Events: On 1 LPM [place] supplemental oxygen Patient c/o shortness of breath. Plan for tunneled catheter placement in AM Awaiting 1 set of blood cultures to be negative Prior blood cultures grew MRSA Continue antibiotics. WBC is wnl ID recommendations appreciated. Continue bronchodilators Incentive spirometry Continue amiodarone PO Monitor hemoglobin Pepcid for GI prophylaxis HD per Nephrology Monitor renal function. Monitor electrolytes. Supplement as necessary Potassium at goal. Nephro recs appreciated. Labs and imaging reviewed. Rest of plan as noted below Plan: Supplemental oxygen Titrate to keep O2 sats above 92%. Continue bronchodilators. Continue antibiotics Accu-Cheks, ISS HD per Nephrology Nephrology recs appreciated. Monitor renal function. Monitor electrolytes. Supplement as necessary. Monitor ins and outs. DVT prophylaxis. Prognosis: Poor given patient's multiple co-morbidities. Rest of plan per hospitalist and other consultants. Thank you, Dr. Iyer, for allowing me to participate in this patient's care. Further recommendations will depend on the patient's clinical course. Please do not hesitate to contact me if you have any questions or concerns. This medical document was created using an electronic medical record system with [employer] dictation system. Although these documentations are being carefully reviewed, there may still be some phonetic and typographical changes. The errors are purely typographical, due to imperfection on the software program, and do not reflect any compromise in the patient's medical care. Dietary Evaluation Review Comments: 1) Continue liberalizing diet to renal standard diet 2) Consider Nepro Carb steady 240ml daily if PO intake <50% 3) Continue current POC Expected Outcomes/Goals: to meet at least 75% estimated needs fu 3-5 days Plan discussed with: Patient, Other (ALFIE Goodwin) JUANITO ADAMS MD January 18, 2025 22:57
[2025-01-19] VITALS (21 sets, daily range): BP systolic 152–167; BP diastolic 84–108; PULSE 93–105; RESP 12–20; TEMP 97.4–98.6; O2SAT 97–100
[2025-01-19 06:54] LABS: Basophils # (auto) 0.1 10 ^3/uL (0-0.2); Eosinophils # (auto) 0.6 10 ^3/uL (0-0.8); Lymphocytes # (auto) 0.9 10 ^3/uL (0.4-5.4); Monocytes # (auto) 0.7 10 ^3/uL (0-1.3); Neutrophils # (auto) 6.9 10 ^3/uL (1.6-8.6)
[2025-01-19 06:56] LABS: Basophils % (auto) 1.2 % (0.0-2.0); Eosinophils % (auto) 6.2 % (0.0-7.0); Hematocrit 27.8 % (41.0-53.0); Hemoglobin 8.9 g/dL (13.5-17.5); Lymphocytes % (auto) 10.1 % (10.0-50.0); Mean Corpuscular Hemoglobin 32.2 pg (28.0-32.0); Mean Corpuscular Hgb Conc. 31.8 g/dL (32.0-36.0); Mean Corpuscular Volume 101.2 fL (80.0-100.0); Monocytes % (auto) 7.8 % (0.0-12.0); Neutrophils % (auto) 74.7 % (37.0-80.0); Platelet Count (auto) 317 10^3/uL (140-450); Red Blood Cells 2.75 10^6/uL (4.5-5.90); Red Cell Distribution Width 17.9 % (11.8-14.3); White Blood Cell 9.2 10^3/uL (4.4-10.8)
[2025-01-19] MEDS: IODIXANOL 320MG/ML 100ML BTL IV ONE (07:56)
--- NOTE | 2025-01-19 08:36 | DVHPN2 ---
Reviewed: Care Plan, H&P, Labs, Medications, Previous Orders, Radiology Changes from previous H/P or p: No Changes Eyes: No Pain, No Vision change, No Conjunctivae inflammation, No Eyelid inflammation, No Other, No Redness ENT: No Ear pain, No Ear discharge, No Nose pain, No Nose discharge, No Nose congestion, No Mouth pain, No Mouth swelling, No Throat pain, No Throat swelling, No Other Cardiovascular: No Chest Pain, No Palpitations, No Orthopnea, No Paroxysmal Noc. Dyspnea, No Edema, No Lt Headedness, No Other Respiratory: No Cough, No Dry; Shortness of breath; No SOB with excertion, No Wheezing, No Hemoptysis, No Pleuritic Pain, No Sputum, No Other Gastrointestinal: No Nausea, No Vomiting, No Abdominal Pain, No Diarrhea, No Constipation, No Melena, No Hematochezia, No Other Genitourinary: No Dysuria, No Frequency, No Incontinence, No Hematuria, No Retention, No Other Musculoskeletal: No other, No neck pain, No shoulder pain, No arm pain, No back pain, No hand pain, No leg pain, No foot pain Skin: No Rash, No Lesions, No Jaundice, No Bruising, No Other Objective Vitals Vital Signs Date Time Temp Pulse Resp B/P (MAP) Pulse Ox O2 Delivery O2 Flow Rate FiO2 01/19/25 07:49 100 16 99 01/19/25 07:43 Nasal Cannula 2.0 01/19/25 07:43 28 01/19/25 05:59 176/108 01/19/25 05:00 97.8 97.8 Intake/Output Intake and Output 01/19/25 07:00 Intake Total 820 ml Balance 820 ml Intake Oral 820 ml # Voids 4 # Bowel Movements 2 Medications Current Medications Medications Dose Ordered Sig/Carmen Route Start Time Stop Time Status Last Admin Dose Admin Multivit/Ca Carb/ B Cmplx/FA/Prenat 1 tab DAILY PO 01/12/25 10:00 01/18/25 10:43 1 TAB Sevelamer HCl 1,200 mg TIDWM PO 01/12/25 08:00 01/18/25 16:53 1,200 MG Famotidine 20 mg DAILY IV 01/12/25 10:00 01/18/25 10:41 20 MG Carvedilol 3.125 mg Q12HR PO 01/12/25 10:00 01/18/25 22:18 3.125 MG Atorvastatin Calcium 10 mg HS PO 01/12/25 22:00 01/18/25 22:24 10 MG Amiodarone HCl 200 mg DAILY PO 01/12/25 10:00 01/18/25 10:46 200 MG Apixaban 2.5 mg BID PO 01/12/25 10:00 01/18/25 22:18 2.5 MG Sodium Chloride 10 ml Q8HR IV 01/12/25 06:00 01/19/25 06:12 10 ML Acetaminophen/ Hydrocodone Bitart 1 tab Q4HP PRN PO 01/12/25 03:15 01/17/25 23:19 1 TAB Ondansetron HCl 4 mg Q4HP PRN IV 01/12/25 03:15 Docusate Sodium 100 mg BIDPRN PRN PO 01/12/25 03:15 Acetaminophen 650 mg Q6HP PRN PO 01/12/25 03:15 01/12/25 17:45 650 MG Nitroglycerin 0.4 mg Q5MINP PRN SL 01/12/25 03:15 Morphine Sulfate 2 mg Q30M PRN IV 01/12/25 03:15 Ipratropium [place] 0.5 mg Q4HR NEB 01/12/25 14:00 01/19/25 07:44 0.5 MG Levalbuterol HCl 1.25 mg Q4HR NEB 01/12/25 14:00 01/19/25 07:43 1.25 MG Vancomycin HCl 0 ml @ 0 mls/hr UD IV 01/12/25 20:00 Hydralazine HCl 10 mg Q4HP PRN IV 01/17/25 12:00 01/19/25 05:59 10 MG Laboratory Results Laboratory Tests 01/18/25 05:00 01/19/25 06:02 Coagulation Test 01/18/25 14:17 Prothrombin Time 10.9 sec (9.3-11.8) Prothrombin Time INR 1.03 (0.9-1.15) Activated Partial Thromboplast Time 23.6 SEC (24.5-34.5) L Microbiology Microbiology Date/Time Source Procedure Growth Status 01/17/25 13:02 Blood Blood Culture - Preliminary NO GROWTH AFTER 24 HOURS OF INCUBATION. Resulted 01/16/25 12:06 Catheter Tip Other Aerobic Culture - Final Methicillin Resistant S.aureus Complete Labs and/or images reviewed: Labs reviewed by me, Image(s) reviewed by me Assessment/Plan Assessment/Plan Care Transferred from Dr. Iyer to Dr. Jessenia Vazquez on 01/18/25 1. Acute on chronic hypoxic respiratory failure secondary to acute COPD exacerbation: Pulmonary consult by Dr. Ferreira appreciated 2. Acute COPD exacerbation 3. AFib with RVR CURRENTLY IMPROVED: Cardiology consult by Dr. Lyle appreciated, on Eliquis 4. MRSA bacteremia, treated with vancomycin, repeat blood cultures neg 5. Suspected pneumonia : Continue vancomycin 6. End-stage renal disease on hemodialysis, Nephrology consult for dialysis 7. Chronic congestive heart failure with diastolic dysfunction Patient To get New dialysis cath as the blood cultures have been negative 8. Infected left tunneled dialysis cath removed on 01/15/2025, patient getting new dialysis cath today Time spent 55 minutes Patient lives in [facility] Care Spoke with daughter Agatha on the phone (who is also RN) [phone] and advised current diagnosis management and poor prognosis Plan discussed with: Patient My Orders Orders - JESSENIA VAZQUEZ MD Procedure Category Date Status Time * Radiologist Consult CONS 01/18/25 Transmitted 13:26 Date of Service: January 19, 2025 Billing Provider: JESSENIA VAZQUEZ MD Common Visit Codes: [id number] INP/OBS CARE(HIGH) Secondary Visit Codes: [id number] CARE PLAN 30 MINUTES JESSENIA VAZQUEZ MD January 19, 2025 08:36
[2025-01-19] MEDS: LIDOCAINE 2%HCL (LOCAL ANESTH.) INJ 20ML MDV ONE (09:41)
[2025-01-19] MEDS: fentaNYL CITRATE 100 MCG/2 ML VL ONE (10:07)
[2025-01-19] MEDS: MIDAZOLAM HCL 2MG/2ML 2ml VIAL (1mg/ml) ONE (10:08)
[2025-01-19] MEDS: ceFAZolin 1GM/50ML 50 ML IV ONE (10:15)
[2025-01-19] MEDS: HEPARIN SODIUM (PORCINE) 5000 UNITS/ML 1ML VIAL ONE (10:47)
--- NOTE | 2025-01-19 12:33 | DVHPN2 ---
Progress Note - Dictate Date Seen: January 19, 2025 Medical Necessity Reason Pt with a Central, PICC or Fol: No Subjective Patient was seen and evaluated in follow up. Patient was taken to the cardiac cath lab technologist for HD catheter placement this am. Patient planned to receive HD post procedure today. HGB 8.9, HCT 27.8, [employer] 8.37. Telemetry reviewed. vital signs Vital Sign Date Time Temp Pulse Resp B/P (MAP) Pulse Ox O2 Delivery O2 Flow Rate FiO2 01/19/25 09:28 104 163/83 01/19/25 09:00 97.9 16 100 97.9 01/19/25 08:00 Nasal Cannula* 2 28 Total Intake and Output 01/18/25 01/18/25 01/19/25 15:00 23:00 07:00 Intake Total 220 ml 600 ml Balance 220 ml 600 ml medications Current Medications Medications Dose Ordered Sig/Carmen Route Start Time Stop Time Status Last Admin Dose Admin Multivit/Ca Carb/ B Cmplx/FA/Prenat 1 tab DAILY PO 01/12/25 10:00 01/19/25 09:26 1 TAB Sevelamer HCl 1,200 mg TIDWM PO 01/12/25 08:00 01/19/25 09:26 1,200 MG Famotidine 20 mg DAILY IV 01/12/25 10:00 01/19/25 09:26 20 MG Carvedilol 3.125 mg Q12HR PO 01/12/25 10:00 01/19/25 09:28 3.125 MG Atorvastatin Calcium 10 mg HS PO 01/12/25 22:00 01/18/25 22:24 10 MG Amiodarone HCl 200 mg DAILY PO 01/12/25 10:00 01/19/25 09:26 200 MG Apixaban 2.5 mg BID PO 01/12/25 10:00 01/18/25 22:18 2.5 MG Sodium Chloride 10 ml Q8HR IV 01/12/25 06:00 01/19/25 06:12 10 ML Acetaminophen/ Hydrocodone Bitart 1 tab Q4HP PRN PO 01/12/25 03:15 01/17/25 23:19 1 TAB Ondansetron HCl 4 mg Q4HP PRN IV 01/12/25 03:15 Docusate Sodium 100 mg BIDPRN PRN PO 01/12/25 03:15 Acetaminophen 650 mg Q6HP PRN PO 01/12/25 03:15 01/12/25 17:45 650 MG Nitroglycerin 0.4 mg Q5MINP PRN SL 01/12/25 03:15 Morphine Sulfate 2 mg Q30M PRN IV 01/12/25 03:15 Ipratropium [place] 0.5 mg Q4HR NEB 01/12/25 14:00 01/19/25 07:44 0.5 MG Levalbuterol HCl 1.25 mg Q4HR NEB 01/12/25 14:00 01/19/25 07:43 1.25 MG Vancomycin HCl 0 ml @ 0 mls/hr UD IV 01/12/25 20:00 Hydralazine HCl 10 mg Q4HP PRN IV 01/17/25 12:00 01/19/25 05:59 10 MG objective GENERAL: Alert and oriented x 3. No acute distress.. EYES: PERRL, EOMI. Anicteric. HENT: Moist mucous membranes. LUNGS: Decreased breath sounds. CARDIOVASCULAR: Regular rate and rhythm. ABDOMEN: Soft, nontender and nondistended. EXTREMITIES: No edema. NEUROLOGIC: No focal neurological deficits. SKIN: Warm, dry. laboratory and microbiology Laboratory Tests 01/19/25 06:02 01/18/25 05:00 Test 01/18/25 05:00 Range/Units Serum Glucose 95 74-106 mg/dL Problem List Atrial fibrillation with RVR. Sepsis, unspecified organism. End-stage renal disease on hemodialysis. Generalized weakness. Assessment/Plan Continued all current supportive medical care. Morphine and [place] for pain management. Amiodarone. Eliquis. Lipitor. Coreg. IV antibiotics as ordered. IV Hydralazine for SBP > 160. Additional plan as per the hospital course. Dietary Evaluation Review Comments: 1) Continue liberalizing diet to renal standard diet 2) Consider Nepro Carb steady 240ml daily if PO intake <50% 3) Continue current POC Expected Outcomes/Goals: to meet at least 75% estimated needs fu 3-5 days Plan discussed with: Patient ANASTASIYA KOLB MD January 19, 2025 11:52
--- NOTE | 2025-01-19 18:52 | DVH ---
XY Insertion of Venous Cath, HISTORY: HD CATH PL PROCEDURE: Informed consent was obtained. The patient was placed supine on the interventional table. 1 gram of Ancef was given IV. A limited localization ultrasound of the right neck base was obtained. The right neck base and upper chest were prepped with chlorhexidine which was allowed to dry and drap ed in the usual sterile fashion. Time out was performed. IV sedation was administered. The skin and t he soft tissues were infiltrated with 1% Lidocaine . With real-time ultrasound guidance, the internal jugular vein was accessed with a micropuncture kit, and an image documenting patency was recorded to PACS. Small amount of contrast was injected through the micro sheath. A subcutaneous tunneled tract was created from the right upper chest to the venotomy site. A 14.5 [place] Path, 23 cm long hem odialysis catheter was advanced through the tunneled tract. Fluoroscopy was used to advance a guidewire through the internal jugular vein into the inferior vena cava. Following serial dilatation, a 15 [place] peel-away sheath was introduced, though which was adva nced the catheter into the right atrium. The catheter tip position was confirmed with fluoroscopy. Th ere was satisfactory flow in both lumens. The catheter lumens were flushed with saline and heparin wa s left indwelling in the catheter. A post-procedure image of the chest was obtained. The neck incisio n site was closed with a Dermabond and dressed sterilely. The catheter was sutured at the skin surfac e and exit site also dressed sterilely. No immediate complication was identified. DAP 266 FLUOROSCOPY TIME: 3.9 minutes. Contrast 10 mL SEDATION: Dr. Caleb Elizalde was personally responsible for the administration of moderate sedation during the procedure performed, including the use of an independent trained observer who had no other duties during the procedure. The drugs utilized were IV fentanyl and versed (see nursing log for details). The total time of supervision by the attending physician was approximately 45 minutes. FINDINGS: Widely patent right IJV. Post procedure image demonstrates smooth course of the hemodialysi s catheter with the tip in the distal SVC. IMPRESSION: Placement of 14.5 [place] path, 23 cm long hemodialysis catheter through right internal jugular vein. Plan: Please contact IR for removal when no longer needed.
--- NOTE | 2025-01-19 21:07 | DVHPN2 ---
Progress Note - Dictate Date Seen: January 19, 2025 Medical Necessity Reason Pt with a Central, PICC or Fol: No Subjective Patient seen and examined at bedside. On supplemental oxygen Overnight events reviewed. vital signs Vital Sign Date Time Temp Pulse Resp B/P (MAP) Pulse Ox O2 Delivery O2 Flow Rate FiO2 01/19/25 19:16 105 18 100 01/19/25 19:10 Nasal Cannula* 2 28 01/19/25 17:00 97.4 161/104 (123) 97.4 Total Intake and Output 01/18/25 01/18/25 01/19/25 15:00 23:00 07:00 Intake Total 220 ml 600 ml Balance 220 ml 600 ml medications Current Medications Medications Dose Ordered Sig/Carmen Route Start Time Stop Time Status Last Admin Dose Admin Multivit/Ca Carb/ B Cmplx/FA/Prenat 1 tab DAILY PO 01/12/25 10:00 01/19/25 09:26 1 TAB Sevelamer HCl 1,200 mg TIDWM PO 01/12/25 08:00 01/19/25 18:00 1,200 MG Famotidine 20 mg DAILY IV 01/12/25 10:00 01/19/25 09:26 20 MG Carvedilol 3.125 mg Q12HR PO 01/12/25 10:00 01/19/25 09:28 3.125 MG Atorvastatin Calcium 10 mg HS PO 01/12/25 22:00 01/18/25 22:24 10 MG Amiodarone HCl 200 mg DAILY PO 01/12/25 10:00 01/19/25 09:26 200 MG Apixaban 2.5 mg BID PO 01/12/25 10:00 01/18/25 22:18 2.5 MG Sodium Chloride 10 ml Q8HR IV 01/12/25 06:00 01/19/25 13:25 10 ML Acetaminophen/ Hydrocodone Bitart 1 tab Q4HP PRN PO 01/12/25 03:15 01/17/25 23:19 1 TAB Ondansetron HCl 4 mg Q4HP PRN IV 01/12/25 03:15 Docusate Sodium 100 mg BIDPRN PRN PO 01/12/25 03:15 Acetaminophen 650 mg Q6HP PRN PO 01/12/25 03:15 01/12/25 17:45 650 MG Nitroglycerin 0.4 mg Q5MINP PRN SL 01/12/25 03:15 Morphine Sulfate 2 mg Q30M PRN IV 01/12/25 03:15 Ipratropium [place] 0.5 mg Q4HR NEB 01/12/25 14:00 01/19/25 19:10 0.5 MG Levalbuterol HCl 1.25 mg Q4HR NEB 01/12/25 14:00 01/19/25 19:10 1.25 MG Vancomycin HCl 0 ml @ 0 mls/hr UD IV 01/12/25 20:00 Hydralazine HCl 10 mg Q4HP PRN IV 01/17/25 12:00 01/19/25 12:40 10 MG objective Gen.: Patient lying in bed in no apparent distress. On supplemental oxygen Head: Normocephalic, atraumatic. Eyes: EOMI/PERRLA. Ears: Normal hearing. Normal anatomy. Neck/trachea: Trachea midline, supple. Nose: Normal external anatomy. Mouth: Moist mucous membranes. Chest: Decreased air entry bilaterally. No wheezing or rhonchi. Cardiovascular: Positive S1, positive S2. Regular rate and rhythm. Abdomen: Positive bowel sounds in all 4 quadrants. Soft, non-tender, non- distended. : Deferred. Rectal: Deferred. Skin: Warm, dry. Intact. Extremities: 2+ radial pulses bilaterally. No lower extremity edema. Neuro: Awake, alert, oriented x3. No gross motor or sensory deficits. Cranial nerves II through XII intact. Gait not assessed. laboratory and microbiology Laboratory Tests 01/19/25 06:02 01/18/25 05:00 Test 01/18/25 05:00 Range/Units Serum Glucose 95 74-106 mg/dL Assessment/Plan Impression: Acute hypoxic respiratory failure Dependence on supplemental oxygen Atrial fibrillation with rapid ventricular response End-stage renal disease, on hemodialysis Congestive heart failure Bacteremia with GPC in clusters Obesity BMI 32.6 Events: On 2 LPM [place] supplemental oxygen Taper O2 as tolerated S/p tunneled catheter placement today Obtain ABG in 1 hour. Monitor blood cultures ID recommendations appreciated Prior blood cultures grew MRSA Continue antibiotics. WBC is wnl Continue bronchodilators Incentive spirometry Continue amiodarone PO Monitor hemoglobin Pepcid for GI prophylaxis HD per Nephrology Monitor renal function. Monitor electrolytes. Supplement as necessary Nephro recs appreciated. Labs and imaging reviewed. Rest of plan as noted below Plan: Supplemental oxygen Titrate to keep O2 sats above 92%. Continue bronchodilators. Continue antibiotics Accu-Cheks, ISS HD per Nephrology Nephrology recs appreciated. Monitor renal function. Monitor electrolytes. Supplement as necessary. Monitor ins and outs. DVT prophylaxis. Prognosis: Poor given patient's multiple co-morbidities. Rest of plan per hospitalist and other consultants. Thank you, Dr. Iyer, for allowing me to participate in this patient's care. Further recommendations will depend on the patient's clinical course. Please do not hesitate to contact me if you have any questions or concerns. This medical document was created using an electronic medical record system with [employer] dictation system. Although these documentations are being carefully reviewed, there may still be some phonetic and typographical changes. The errors are purely typographical, due to imperfection on the software program, and do not reflect any compromise in the patient's medical care. Dietary Evaluation Review Comments: 1) Continue liberalizing diet to renal standard diet 2) Consider Nepro Carb steady 240ml daily if PO intake <50% 3) Continue current POC Expected Outcomes/Goals: to meet at least 75% estimated needs fu 3-5 days Plan discussed with: Patient, Other (ALFIE Goodwin) JUANITO ADAMS MD January 19, 2025 21:07
--- NOTE | 2025-01-19 22:16 | DVHPN2 ---
Consult Progress Note Date Seen: January 19, 2025 Subjective Patient reports: Other (S/P new placement of dialysis line in the right chest wall and is tolerating insertion site well and the insertion site is clean ) Objective vital signs Vital Sign Date Time Temp Pulse Resp B/P (MAP) Pulse Ox O2 Delivery O2 Flow Rate FiO2 01/19/25 21:36 104 145/77 01/19/25 19:16 18 100 01/19/25 19:10 Nasal Cannula* 2 28 01/19/25 17:00 97.4 97.4 Total Intake and Output 01/18/25 01/18/25 01/19/25 15:00 23:00 07:00 Intake Total 220 ml 600 ml Balance 220 ml 600 ml medications Current Medications Medications Dose Ordered Sig/Carmen Route Start Time Stop Time Status Last Admin Dose Admin Multivit/Ca Carb/ B Cmplx/FA/Prenat 1 tab DAILY PO 01/12/25 10:00 01/19/25 09:26 1 TAB Sevelamer HCl 1,200 mg TIDWM PO 01/12/25 08:00 01/19/25 18:00 1,200 MG Famotidine 20 mg DAILY IV 01/12/25 10:00 01/19/25 09:26 20 MG Carvedilol 3.125 mg Q12HR PO 01/12/25 10:00 01/19/25 21:36 3.125 MG Atorvastatin Calcium 10 mg HS PO 01/12/25 22:00 01/19/25 21:37 10 MG Amiodarone HCl 200 mg DAILY PO 01/12/25 10:00 01/19/25 09:26 200 MG Apixaban 2.5 mg BID PO 01/12/25 10:00 01/19/25 21:36 2.5 MG Sodium Chloride 10 ml Q8HR IV 01/12/25 06:00 01/19/25 21:37 10 ML Acetaminophen/ Hydrocodone Bitart 1 tab Q4HP PRN PO 01/12/25 03:15 01/17/25 23:19 1 TAB Ondansetron HCl 4 mg Q4HP PRN IV 01/12/25 03:15 Docusate Sodium 100 mg BIDPRN PRN PO 01/12/25 03:15 Acetaminophen 650 mg Q6HP PRN PO 01/12/25 03:15 01/12/25 17:45 650 MG Nitroglycerin 0.4 mg Q5MINP PRN SL 01/12/25 03:15 Morphine Sulfate 2 mg Q30M PRN IV 01/12/25 03:15 Ipratropium [place] 0.5 mg Q4HR NEB 01/12/25 14:00 01/19/25 19:10 0.5 MG Levalbuterol HCl 1.25 mg Q4HR NEB 01/12/25 14:00 01/19/25 19:10 1.25 MG Vancomycin HCl 0 ml @ 0 mls/hr UD IV 01/12/25 20:00 Hydralazine HCl 10 mg Q4HP PRN IV 01/17/25 12:00 01/19/25 12:40 10 MG Physical Exam: General: NAD Neck: Supple. No masses. HEENT: PERRL. Normal lids and conjunctiva. Moist mucous membranes. Oropharynx without lesions, exudates or excessive erythema. Normal appearance of the external aspects of the nose and ears. Heart: Regular rhythm, normal rate. No murmur. No lower extremity edema. Lungs: Normal respiratory effort. Clear to auscultation bilaterally. No wheezes. No crackles. Abdomen: Soft. Non-tender. Non-distended. No masses or abdominal hernia. Msk: No digital cyanosis. Normal strength and tone in all 4 limbs. Skin: Warm and dry, no rashes. Tenderness at left chest wall dialysis catheter site. Neuro: Alert. No facial droop or slurred speech. Extra-ocular movements intact. Sensation intact to soft touch in all 4 limbs. Chronic left/right-sided deficits. Psych: Appropriate mood. Full affect. Oriented to person, place, time, and situation. laboratory and microbiology Laboratory Tests 01/19/25 06:02 01/18/25 05:00 Test 01/18/25 05:00 Range/Units Serum Glucose 95 74-106 mg/dL Problem List/Assessment/Plan Problems(with codes): (1) Metabolic encephalopathy (2) Nausea (3) ESRD (end stage renal disease) on dialysis (4) MRSA (methicillin resistant Staphylococcus aureus) septicemia (5) Altered mental status (6) Weakness (7) Syncope (8) Leukocytosis Problem List/Assessment/Plan ASSESSMENT AND PLAN: ID Problem List: - Catheter-associated MRSA bacteremia - Severe sepsis - End-stage renal disease on hemodialysis - History of stroke with left-sided deficits (also noted as right-sided deficits in parts of transcript; clarify later if needed) COPD - Diabetes mellitus - Hypertension - Congestive heart failure Assessment: Mr. 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 On admission, laboratory findings were significant for leukocytosis (WBC 15.1), Hct 10.8, platelets 207, sodium 139, BUN 27, creatinine 4.64, glucose 101, and lactic acid 2.4. Physical examination notes obesity and left chest wall dialysis catheter site tenderness. The patient developed hypotension (BP decreased from 174/94 to 98/54) and tachycardia (HR 121 improved to 78 post-fluid bolus), as well as hypoxemia (SpO2 79% on 6L NC) with tachypnea (RR 32). Blood cultures returned positive for MRSA in 4/4 bottles (drawn 01/11 and 01/12); subsequent cultures after catheter removal have been negative for >72 hours as of 01/13. Chest imaging notes removal of the right internal jugular central line, placement of hemodialysis catheter in the left chest wall with tip in distal SVC, and mildly prominent bronchovascular markings left perihilar lobe. No acute/clear evidence of pulmonary infiltrate. Echocardiogram was limited by body habitus but showed aortic stenosis (valve area 1.4 cm), dyskinesis of interventricular septum, mild LVH, mild left ventricular diastolic dysfunction, and mildly dilated right-sided chambers. 01/15: patients blood cultures continue to be negative , catheter cultures are pending 01/16:catheter cultures are are showing staph aureus 01/17: improved signs of sepsis and bacteremia is clearing 01/18: tolerating dialysis 01/19: patients vancomycin troths are therapeutic Plan: - recommend ANGEL at this time to rule out worsening potential endocarditis - once blood cultures are negative for 72 hours can replace the dialysis catheter line - patient will need vancomycin as outpatient for a minimum of 4-6 weeks -Continue intravenous vancomycin; patient appears to be responding well - Catheter removal has been performed; plan to replace dialysis line after ?72 hours of negative blood cultures - Once negative cultures maintained for at least 72 hours, initiate a 46 week course of IV vancomycin - Transesophageal echocardiogram (ANGEL) is planned to rule out endocarditis, as transthoracic study was inconclusive and suspicion remains elevated - Monitor daily blood cultures until negative clearance confirmed - Monitor for clinical stability and resolution of sepsis - Dialysis to continue per // schedule; ensure line access as above - No evidence of pulmonary infection or viral etiologies (Flu A, Flu B, COVID-19 all negative) - Supportive care including oxygen and fluid management as needed Isolation Precautions: Standard Plan discussed with: Other Dietary Evaluation Review Comments: 1) Continue liberalizing diet to renal standard diet 2) Consider Nepro Carb steady 240ml daily if PO intake <50% 3) Continue current POC Expected Outcomes/Goals: to meet at least 75% estimated needs fu 3-5 days RG STEVE MD January 19, 2025 22:16
[2025-01-20] VITALS (17 sets, daily range): BP systolic 148–158; BP diastolic 68–99; PULSE 77–106; RESP 16–20; TEMP 97.3–98.4; O2SAT 91–100
--- NOTE | 2025-01-20 08:31 | DVHPN2 ---
Reviewed: Care Plan, H&P, Labs, Medications, Previous Orders, Radiology Changes from previous H/P or p: No Changes Eyes: No Pain, No Vision change, No Conjunctivae inflammation, No Eyelid inflammation, No Other, No Redness ENT: No Ear pain, No Ear discharge, No Nose pain, No Nose discharge, No Nose congestion, No Mouth pain, No Mouth swelling, No Throat pain, No Throat swelling, No Other Cardiovascular: No Chest Pain, No Palpitations, No Orthopnea, No Paroxysmal Noc. Dyspnea, No Edema, No Lt Headedness, No Other Respiratory: No Cough, No Dry; Shortness of breath; No SOB with excertion, No Wheezing, No Hemoptysis, No Pleuritic Pain, No Sputum, No Other Gastrointestinal: No Nausea, No Vomiting, No Abdominal Pain, No Diarrhea, No Constipation, No Melena, No Hematochezia, No Other Genitourinary: No Dysuria, No Frequency, No Incontinence, No Hematuria, No Retention, No Other Musculoskeletal: No other, No neck pain, No shoulder pain, No arm pain, No back pain, No hand pain, No leg pain, No foot pain Skin: No Rash, No Lesions, No Jaundice, No Bruising, No Other Objective Vitals Vital Signs Date Time Temp Pulse Resp B/P (MAP) Pulse Ox O2 Delivery O2 Flow Rate FiO2 01/20/25 07:08 98 Nasal Cannula* 1 24 01/20/25 07:08 88 16 01/20/25 05:00 98.4 158/80 (106) 98.4 Intake/Output Intake and Output 01/20/25 07:00 Intake Total 800 ml Output Total 3 ml Balance 797 ml Intake Oral 800 ml Output Urine Total 2 ml Stool Total 1 ml # Voids 2 # Bowel Movements 1 Medications Current Medications Medications Dose Ordered Sig/Carmen Route Start Time Stop Time Status Last Admin Dose Admin Multivit/Ca Carb/ B Cmplx/FA/Prenat 1 tab DAILY PO 01/12/25 10:00 01/19/25 09:26 1 TAB Sevelamer HCl 1,200 mg TIDWM PO 01/12/25 08:00 01/20/25 07:57 1,200 MG Famotidine 20 mg DAILY IV 01/12/25 10:00 01/19/25 09:26 20 MG Carvedilol 3.125 mg Q12HR PO 01/12/25 10:00 01/19/25 21:36 3.125 MG Atorvastatin Calcium 10 mg HS PO 01/12/25 22:00 01/19/25 21:37 10 MG Amiodarone HCl 200 mg DAILY PO 01/12/25 10:00 01/19/25 09:26 200 MG Apixaban 2.5 mg BID PO 01/12/25 10:00 01/19/25 21:36 2.5 MG Sodium Chloride 10 ml Q8HR IV 01/12/25 06:00 01/20/25 05:46 10 ML Acetaminophen/ Hydrocodone Bitart 1 tab Q4HP PRN PO 01/12/25 03:15 01/17/25 23:19 1 TAB Ondansetron HCl 4 mg Q4HP PRN IV 01/12/25 03:15 Docusate Sodium 100 mg BIDPRN PRN PO 01/12/25 03:15 Acetaminophen 650 mg Q6HP PRN PO 01/12/25 03:15 01/12/25 17:45 650 MG Nitroglycerin 0.4 mg Q5MINP PRN SL 01/12/25 03:15 Morphine Sulfate 2 mg Q30M PRN IV 01/12/25 03:15 Ipratropium [place] 0.5 mg Q4HR NEB 01/12/25 14:00 01/20/25 07:08 0.5 MG Levalbuterol HCl 1.25 mg Q4HR NEB 01/12/25 14:00 01/20/25 07:08 1.25 MG Vancomycin HCl 0 ml @ 0 mls/hr UD IV 01/12/25 20:00 Hydralazine HCl 10 mg Q4HP PRN IV 01/17/25 12:00 01/19/25 12:40 10 MG Laboratory Results Laboratory Tests 01/18/25 05:00 01/19/25 06:02 Microbiology Microbiology Date/Time Source Procedure Growth Status 01/17/25 13:02 Blood Blood Culture - Preliminary NO GROWTH AFTER 48 HOURS OF INCUBATION. Resulted 01/16/25 12:06 Catheter Tip Other Aerobic Culture - Final Methicillin Resistant S.aureus Complete Labs and/or images reviewed: Labs reviewed by me, Image(s) reviewed by me Assessment/Plan Assessment/Plan Care Transferred from Dr. Iyer to Dr. Jessenia Vazquez on 01/18/25 1. Acute on chronic hypoxic respiratory failure secondary to acute COPD exacerbation: Pulmonary consult by Dr. Ferreira appreciated 2. Acute COPD exacerbation 3. AFib with RVR CURRENTLY IMPROVED: Cardiology consult by Dr. Lyle appreciated, on Eliquis 4. MRSA bacteremia, treated with vancomycin, repeat blood cultures neg 5. Suspected pneumonia : Continue vancomycin 6. End-stage renal disease on hemodialysis, Nephrology consult for dialysis 7. Chronic congestive heart failure with diastolic dysfunction Patient To get New dialysis cath as the blood cultures have been negative 8. Infected left tunneled dialysis cath removed on 01/15/2025, status post new tunneled dialysis cath right upper chest on 01-19-25, Will inform Nephrology for dialysis Time spent 55 minutes Patient lives in [place] [facility] Spoke with daughter Agatha on the phone (who is also RN) [phone] and advised current diagnosis management and poor prognosis JOHNNY pending Plan discussed with: Patient My Orders Orders - JESSENIA VAZQUEZ MD Procedure Category Date Status Time Echo Johnny Complete BD 01/19/25 Transmitted 08:39 Insertion Of Venous XY 01/19/25 Resulted Cath 10:45 Date of Service: January 20, 2025 Billing Provider: JESSENIA VAZQUEZ MD Common Visit Codes: [id number] INP/OBS CARE(HIGH) JESSENIA VAZQUEZ MD January 20, 2025 08:31
--- NOTE | 2025-01-20 12:16 | DVHPN2 ---
Progress Note Date Seen: January 19, 2025 Medical Necessity Reason Pt with a Central, PICC or Fol: No Subjective Patient reports: No new complaints, Feels better Review of Systems: Deferred Objective vital signs Vital Sign Date Time Temp Pulse Resp B/P (MAP) Pulse Ox O2 Delivery O2 Flow Rate FiO2 01/20/25 10:05 90 16 100 01/20/25 09:57 Nasal Cannula* 1 24 01/20/25 09:00 98.0 151/99 (116) 98.0 Total Intake and Output 01/19/25 01/19/25 01/20/25 15:00 23:00 07:00 Intake Total 400 ml 400 ml Output Total 3 ml Balance 397 ml 400 ml medications Current Medications Medications Dose Ordered Sig/Carmen Route Start Time Stop Time Status Last Admin Dose Admin Multivit/Ca Carb/ B Cmplx/FA/Prenat 1 tab DAILY PO 01/12/25 10:00 01/19/25 09:26 1 TAB Sevelamer HCl 1,200 mg TIDWM PO 01/12/25 08:00 01/20/25 07:57 1,200 MG Famotidine 20 mg DAILY IV 01/12/25 10:00 01/19/25 09:26 20 MG Carvedilol 3.125 mg Q12HR PO 01/12/25 10:00 01/19/25 21:36 3.125 MG Atorvastatin Calcium 10 mg HS PO 01/12/25 22:00 01/19/25 21:37 10 MG Amiodarone HCl 200 mg DAILY PO 01/12/25 10:00 01/19/25 09:26 200 MG Apixaban 2.5 mg BID PO 01/12/25 10:00 01/19/25 21:36 2.5 MG Sodium Chloride 10 ml Q8HR IV 01/12/25 06:00 01/20/25 05:46 10 ML Acetaminophen/ Hydrocodone Bitart 1 tab Q4HP PRN PO 01/12/25 03:15 01/17/25 23:19 1 TAB Ondansetron HCl 4 mg Q4HP PRN IV 01/12/25 03:15 Docusate Sodium 100 mg BIDPRN PRN PO 01/12/25 03:15 Acetaminophen 650 mg Q6HP PRN PO 01/12/25 03:15 01/12/25 17:45 650 MG Nitroglycerin 0.4 mg Q5MINP PRN SL 01/12/25 03:15 Morphine Sulfate 2 mg Q30M PRN IV 01/12/25 03:15 Ipratropium [place] 0.5 mg Q4HR NEB 01/12/25 14:00 01/20/25 09:57 0.5 MG Levalbuterol HCl 1.25 mg Q4HR NEB 01/12/25 14:00 01/20/25 09:57 1.25 MG Vancomycin HCl 0 ml @ 0 mls/hr UD IV 01/12/25 20:00 Hydralazine HCl 10 mg Q4HP PRN IV 01/17/25 12:00 01/19/25 12:40 10 MG laboratory and microbiology Laboratory Tests 01/19/25 06:02 01/18/25 05:00 Test 01/18/25 05:00 Range/Units Serum Glucose 95 74-106 mg/dL Microbiology Date/Time Source Procedure Growth Status 01/17/25 13:02 Blood Blood Culture - Preliminary NO GROWTH AFTER 48 HOURS OF INCUBATION. Resulted 01/16/25 12:06 Catheter Tip Other Aerobic Culture - Final Methicillin Resistant S.aureus Complete Problem List/Assessment/Plan Problem List/Assessment/Plan ESRD on hemodialysis Wednesday/Wednesday/Wednesday Central line associated bloodstream infection MRSA bacteremia Macrocytic Anemia, likely secondary to ESRD Acute hypoxic respiratory failure Acute COPD exacerbation secondary to probable pneumonia Probable sepsis secondary to pneumonia Paroxysmal Atrial fibrillation-on Eliquis-currently sinus Lactic acidosis History of CVA History of diabetes-patient denies Hypertension GERD Plan: new cath placed/HD today Plan discussed with: Patient My Orders My Orders Orders - MAHESH GIPSON MD Procedure Category Date Status Time Hemodialysis Orders ORDERS 01/19/25 Transmitted 16:16 Dietary Evaluation Review Comments: 1) Continue liberalizing diet to renal standard diet 2) Consider Nepro Carb steady 240ml daily if PO intake <50% 3) Continue current POC Expected Outcomes/Goals: to meet at least 75% estimated needs fu 3-5 days MAHESH GIPSON MD January 20, 2025 12:16
--- NOTE | 2025-01-20 12:17 | DVHPN2 ---
Progress Note Date Seen: January 20, 2025 Medical Necessity Reason Pt with a Central, PICC or Fol: No Subjective Patient reports: No new complaints Objective vital signs Vital Sign Date Time Temp Pulse Resp B/P (MAP) Pulse Ox O2 Delivery O2 Flow Rate FiO2 01/20/25 10:05 90 16 100 01/20/25 09:57 Nasal Cannula* 1 24 01/20/25 09:00 98.0 151/99 (116) 98.0 Total Intake and Output 01/19/25 01/19/25 01/20/25 15:00 23:00 07:00 Intake Total 400 ml 400 ml Output Total 3 ml Balance 397 ml 400 ml medications Current Medications Medications Dose Ordered Sig/Carmen Route Start Time Stop Time Status Last Admin Dose Admin Multivit/Ca Carb/ B Cmplx/FA/Prenat 1 tab DAILY PO 01/12/25 10:00 01/19/25 09:26 1 TAB Sevelamer HCl 1,200 mg TIDWM PO 01/12/25 08:00 01/20/25 07:57 1,200 MG Famotidine 20 mg DAILY IV 01/12/25 10:00 01/19/25 09:26 20 MG Carvedilol 3.125 mg Q12HR PO 01/12/25 10:00 01/19/25 21:36 3.125 MG Atorvastatin Calcium 10 mg HS PO 01/12/25 22:00 01/19/25 21:37 10 MG Amiodarone HCl 200 mg DAILY PO 01/12/25 10:00 01/19/25 09:26 200 MG Apixaban 2.5 mg BID PO 01/12/25 10:00 01/19/25 21:36 2.5 MG Sodium Chloride 10 ml Q8HR IV 01/12/25 06:00 01/20/25 05:46 10 ML Acetaminophen/ Hydrocodone Bitart 1 tab Q4HP PRN PO 01/12/25 03:15 01/17/25 23:19 1 TAB Ondansetron HCl 4 mg Q4HP PRN IV 01/12/25 03:15 Docusate Sodium 100 mg BIDPRN PRN PO 01/12/25 03:15 Acetaminophen 650 mg Q6HP PRN PO 01/12/25 03:15 01/12/25 17:45 650 MG Nitroglycerin 0.4 mg Q5MINP PRN SL 01/12/25 03:15 Morphine Sulfate 2 mg Q30M PRN IV 01/12/25 03:15 Ipratropium [place] 0.5 mg Q4HR NEB 01/12/25 14:00 01/20/25 09:57 0.5 MG Levalbuterol HCl 1.25 mg Q4HR NEB 01/12/25 14:00 01/20/25 09:57 1.25 MG Vancomycin HCl 0 ml @ 0 mls/hr UD IV 01/12/25 20:00 Hydralazine HCl 10 mg Q4HP PRN IV 01/17/25 12:00 01/19/25 12:40 10 MG laboratory and microbiology Laboratory Tests 01/19/25 06:02 01/18/25 05:00 Test 01/18/25 05:00 Range/Units Serum Glucose 95 74-106 mg/dL Microbiology Date/Time Source Procedure Growth Status 01/17/25 13:02 Blood Blood Culture - Preliminary NO GROWTH AFTER 48 HOURS OF INCUBATION. Resulted 01/16/25 12:06 Catheter Tip Other Aerobic Culture - Final Methicillin Resistant S.aureus Complete Problem List/Assessment/Plan Problem List/Assessment/Plan ESRD on hemodialysis Wednesday/Wednesday/Wednesday Central line associated bloodstream infection MRSA bacteremia Macrocytic Anemia, likely secondary to ESRD Acute hypoxic respiratory failure Acute COPD exacerbation secondary to probable pneumonia Probable sepsis secondary to pneumonia Paroxysmal Atrial fibrillation-on Eliquis-currently sinus Lactic acidosis History of CVA History of diabetes-patient denies Hypertension GERD Plan: new cath placed/HD wednesday if still here or else resume outpt HD schedule [facility] Plan discussed with: Patient My Orders My Orders Orders - MAHESH GIPSON MD Procedure Category Date Status Time Hemodialysis Orders ORDERS 01/19/25 Transmitted 16:16 Dietary Evaluation Review Comments: 1) Continue liberalizing diet to renal standard diet 2) Consider Nepro Carb steady 240ml daily if PO intake <50% 3) Continue current POC Expected Outcomes/Goals: to meet at least 75% estimated needs fu 3-5 days MAHESH GIPSON MD January 20, 2025 12:17
--- NOTE | 2025-01-20 19:22 | DVHPN2 ---
Progress Note - Dictate Date Seen: January 20, 2025 Medical Necessity Reason Pt with a Central, PICC or Fol: No Subjective Patient seen and examined at bedside. On supplemental oxygen Overnight events reviewed. vital signs Vital Sign Date Time Temp Pulse Resp B/P (MAP) Pulse Ox O2 Delivery O2 Flow Rate FiO2 01/20/25 18:23 93 20 100 01/20/25 18:13 Nasal Cannula 1.0 01/20/25 18:13 24 01/20/25 16:56 98.0 154/68 (96) 98.0 Total Intake and Output 01/19/25 01/19/25 01/20/25 15:00 23:00 07:00 Intake Total 400 ml 400 ml Output Total 3 ml Balance 397 ml 400 ml medications Current Medications Medications Dose Ordered Sig/Carmen Route Start Time Stop Time Status Last Admin Dose Admin Multivit/Ca Carb/ B Cmplx/FA/Prenat 1 tab DAILY PO 01/12/25 10:00 01/20/25 13:51 1 TAB Sevelamer HCl 1,200 mg TIDWM PO 01/12/25 08:00 01/20/25 17:35 1,200 MG Famotidine 20 mg DAILY IV 01/12/25 10:00 01/20/25 13:50 20 MG Carvedilol 3.125 mg Q12HR PO 01/12/25 10:00 01/20/25 13:51 3.125 MG Atorvastatin Calcium 10 mg HS PO 01/12/25 22:00 01/19/25 21:37 10 MG Amiodarone HCl 200 mg DAILY PO 01/12/25 10:00 01/20/25 13:51 200 MG Apixaban 2.5 mg BID PO 01/12/25 10:00 01/20/25 13:50 2.5 MG Sodium Chloride 10 ml Q8HR IV 01/12/25 06:00 01/20/25 13:52 10 ML Acetaminophen/ Hydrocodone Bitart 1 tab Q4HP PRN PO 01/12/25 03:15 01/17/25 23:19 1 TAB Ondansetron HCl 4 mg Q4HP PRN IV 01/12/25 03:15 Docusate Sodium 100 mg BIDPRN PRN PO 01/12/25 03:15 Acetaminophen 650 mg Q6HP PRN PO 01/12/25 03:15 01/12/25 17:45 650 MG Nitroglycerin 0.4 mg Q5MINP PRN SL 01/12/25 03:15 Morphine Sulfate 2 mg Q30M PRN IV 01/12/25 03:15 Ipratropium [place] 0.5 mg Q4HR NEB 01/12/25 14:00 01/20/25 18:13 0.5 MG Levalbuterol HCl 1.25 mg Q4HR NEB 01/12/25 14:00 01/20/25 18:13 1.25 MG Vancomycin HCl 0 ml @ 0 mls/hr UD IV 01/12/25 20:00 Hydralazine HCl 10 mg Q4HP PRN IV 01/17/25 12:00 01/19/25 12:40 10 MG objective Gen.: Patient lying in bed in no apparent distress. On supplemental oxygen Head: Normocephalic, atraumatic. Eyes: EOMI/PERRLA. Ears: Normal hearing. Normal anatomy. Neck/trachea: Trachea midline, supple. Nose: Normal external anatomy. Mouth: Moist mucous membranes. Chest: Decreased air entry bilaterally. No wheezing or rhonchi. Cardiovascular: Positive S1, positive S2. Regular rate and rhythm. Abdomen: Positive bowel sounds in all 4 quadrants. Soft, non-tender, non- distended. : Deferred. Rectal: Deferred. Skin: Warm, dry. Intact. Extremities: 2+ radial pulses bilaterally. No lower extremity edema. Neuro: Awake, alert, oriented x3. No gross motor or sensory deficits. Cranial nerves II through XII intact. Gait not assessed. laboratory and microbiology Laboratory Tests 01/19/25 06:02 01/18/25 05:00 Test 01/18/25 05:00 Range/Units Serum Glucose 95 74-106 mg/dL Assessment/Plan Impression: Acute hypoxic respiratory failure Dependence on supplemental oxygen Atrial fibrillation with rapid ventricular response End-stage renal disease, on hemodialysis Congestive heart failure Bacteremia with GPC in clusters Obesity BMI 32.6 Events: On 2 LPM NC supplemental oxygen Taper O2 as tolerated HD per Nephrology S/p new tunneled catheter placement. Monitor renal function. Monitor electrolytes. Supplement as necessary Nephro recs appreciated. Repeat blood cultures show no growth after 72 hours Prior blood cultures grew MRSA ID recommendations appreciated Continue bronchodilators Incentive spirometry Continue amiodarone PO Monitor hemoglobin Pepcid for GI prophylaxis Disposition per hospitalist Labs and imaging reviewed. Rest of plan as noted below Plan: Supplemental oxygen Titrate to keep O2 sats above 92%. Continue bronchodilators. Amiodarone PO Accu-Cheks, ISS HD per Nephrology Nephrology recs appreciated. Monitor renal function. Monitor electrolytes. Supplement as necessary. Monitor ins and outs. DVT prophylaxis. Prognosis: Poor given patient's multiple co-morbidities. Rest of plan per hospitalist and other consultants. Thank you, Dr. Iyer, for allowing me to participate in this patient's care. Further recommendations will depend on the patient's clinical course. Please do not hesitate to contact me if you have any questions or concerns. This medical document was created using an electronic medical record system with [employer] dictation system. Although these documentations are being carefully reviewed, there may still be some phonetic and typographical changes. The errors are purely typographical, due to imperfection on the software program, and do not reflect any compromise in the patient's medical care. Dietary Evaluation Review Comments: 1) Continue liberalizing diet to renal standard diet 2) Consider Nepro Carb steady 240ml daily if PO intake <50% 3) Continue current POC Expected Outcomes/Goals: to meet at least 75% estimated needs fu 3-5 days Plan discussed with: Patient, Other (RN Lorelei) JUANITO ADAMS MD January 20, 2025 19:22
--- NOTE | 2025-01-20 20:27 | DVHPN2 ---
Consult Progress Note Date Seen: January 20, 2025 Subjective Patient reports: Other (new TTE was ordered and is pending procedure , right sided deficits are unchanged ) Objective vital signs Vital Sign Date Time Temp Pulse Resp B/P (MAP) Pulse Ox O2 Delivery O2 Flow Rate FiO2 01/20/25 18:23 93 20 100 01/20/25 18:13 Nasal Cannula 1.0 01/20/25 18:13 24 01/20/25 16:56 98.0 154/68 (96) 98.0 Total Intake and Output 01/19/25 01/19/25 01/20/25 15:00 23:00 07:00 Intake Total 400 ml 400 ml Output Total 3 ml Balance 397 ml 400 ml medications Current Medications Medications Dose Ordered Sig/Carmen Route Start Time Stop Time Status Last Admin Dose Admin Multivit/Ca Carb/ B Cmplx/FA/Prenat 1 tab DAILY PO 01/12/25 10:00 01/20/25 13:51 1 TAB Sevelamer HCl 1,200 mg TIDWM PO 01/12/25 08:00 01/20/25 17:35 1,200 MG Famotidine 20 mg DAILY IV 01/12/25 10:00 01/20/25 13:50 20 MG Carvedilol 3.125 mg Q12HR PO 01/12/25 10:00 01/20/25 13:51 3.125 MG Atorvastatin Calcium 10 mg HS PO 01/12/25 22:00 01/19/25 21:37 10 MG Amiodarone HCl 200 mg DAILY PO 01/12/25 10:00 01/20/25 13:51 200 MG Apixaban 2.5 mg BID PO 01/12/25 10:00 01/20/25 13:50 2.5 MG Sodium Chloride 10 ml Q8HR IV 01/12/25 06:00 01/20/25 13:52 10 ML Acetaminophen/ Hydrocodone Bitart 1 tab Q4HP PRN PO 01/12/25 03:15 01/17/25 23:19 1 TAB Ondansetron HCl 4 mg Q4HP PRN IV 01/12/25 03:15 Docusate Sodium 100 mg BIDPRN PRN PO 01/12/25 03:15 Acetaminophen 650 mg Q6HP PRN PO 01/12/25 03:15 01/12/25 17:45 650 MG Nitroglycerin 0.4 mg Q5MINP PRN SL 01/12/25 03:15 Morphine Sulfate 2 mg Q30M PRN IV 01/12/25 03:15 Ipratropium [place] 0.5 mg Q4HR NEB 01/12/25 14:00 01/20/25 18:13 0.5 MG Levalbuterol HCl 1.25 mg Q4HR NEB 01/12/25 14:00 01/20/25 18:13 1.25 MG Vancomycin HCl 0 ml @ 0 mls/hr UD IV 01/12/25 20:00 Hydralazine HCl 10 mg Q4HP PRN IV 01/17/25 12:00 01/19/25 12:40 10 MG Physical Exam: General: NAD Neck: Supple. No masses. HEENT: PERRL. Normal lids and conjunctiva. Moist mucous membranes. Oropharynx without lesions, exudates or excessive erythema. Normal appearance of the external aspects of the nose and ears. Heart: Regular rhythm, normal rate. No murmur. No lower extremity edema. Lungs: Normal respiratory effort. Clear to auscultation bilaterally. No wheezes. No crackles. Abdomen: Soft. Non-tender. Non-distended. No masses or abdominal hernia. Msk: No digital cyanosis. Normal strength and tone in all 4 limbs. Skin: Warm and dry, no rashes. Tenderness at left chest wall dialysis catheter site. Neuro: Alert. No facial droop or slurred speech. Extra-ocular movements intact. Sensation intact to soft touch in all 4 limbs. Chronic left/right-sided deficits. Psych: Appropriate mood. Full affect. Oriented to person, place, time, and situation. laboratory and microbiology Laboratory Tests 01/19/25 06:02 01/18/25 05:00 Test 01/18/25 05:00 Range/Units Serum Glucose 95 74-106 mg/dL Problem List/Assessment/Plan Problems(with codes): (1) Nausea (2) Metabolic encephalopathy (3) ESRD (end stage renal disease) on dialysis (4) MRSA (methicillin resistant Staphylococcus aureus) septicemia (5) Altered mental status (6) Weakness (7) Syncope Problem List/Assessment/Plan ASSESSMENT AND PLAN: ID Problem List: - Catheter-associated MRSA bacteremia - Severe sepsis - End-stage renal disease on hemodialysis - History of stroke with left-sided deficits (also noted as right-sided deficits in parts of transcript; clarify later if needed) COPD - Diabetes mellitus - Hypertension - Congestive heart failure Assessment: Mr. 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 On admission, laboratory findings were significant for leukocytosis (WBC 15.1), Hct 10.8, platelets 207, sodium 139, BUN 27, creatinine 4.64, glucose 101, and lactic acid 2.4. Physical examination notes obesity and left chest wall dialysis catheter site tenderness. The patient developed hypotension (BP decreased from 174/94 to 98/54) and tachycardia (HR 121 improved to 78 post-fluid bolus), as well as hypoxemia (SpO2 79% on 6L NC) with tachypnea (RR 32). Blood cultures returned positive for MRSA in 4/4 bottles (drawn 01/11 and 01/12); subsequent cultures after catheter removal have been negative for >72 hours as of 01/13. Chest imaging notes removal of the right internal jugular central line, placement of hemodialysis catheter in the left chest wall with tip in distal SVC, and mildly prominent bronchovascular markings left perihilar lobe. No acute/clear evidence of pulmonary infiltrate. Echocardiogram was limited by body habitus but showed aortic stenosis (valve area 1.4 cm), dyskinesis of interventricular septum, mild LVH, mild left ventricular diastolic dysfunction, and mildly dilated right-sided chambers. 01/15: patients blood cultures continue to be negative , catheter cultures are pending 01/16:catheter cultures are are showing staph aureus 01/17: improved signs of sepsis and bacteremia is clearing 01/18: tolerating dialysis 01/19: patients vancomycin troths are therapeutic 01/20: patients resumes dialysis on Wednesday Plan: - recommend ANGEL at this time to rule out worsening potential endocarditis - once blood cultures are negative for 72 hours can replace the dialysis catheter line - patient will need vancomycin as outpatient for a minimum of 4-6 weeks -Continue intravenous vancomycin; patient appears to be responding well - Catheter removal has been performed; plan to replace dialysis line after ?72 hours of negative blood cultures - Once negative cultures maintained for at least 72 hours, initiate a 46 week course of IV vancomycin - Transesophageal echocardiogram (ANGEL) is planned to rule out endocarditis, as transthoracic study was inconclusive and suspicion remains elevated - Monitor daily blood cultures until negative clearance confirmed - Monitor for clinical stability and resolution of sepsis - Dialysis to continue per // schedule; ensure line access as above - No evidence of pulmonary infection or viral etiologies (Flu A, Flu B, COVID-19 all negative) - Supportive care including oxygen and fluid management as needed Isolation Precautions: Standard Plan discussed with: Other Dietary Evaluation Review Comments: 1) Continue liberalizing diet to renal standard diet 2) Consider Nepro Carb steady 240ml daily if PO intake <50% 3) Continue current POC Expected Outcomes/Goals: to meet at least 75% estimated needs fu 3-5 days RG STEVE MD January 20, 2025 20:27
--- NOTE | 2025-01-20 22:28 | DVHPN2 ---
Progress Note - Dictate Date Seen: January 20, 2025 Medical Necessity Reason Pt with a Central, PICC or Fol: No Subjective Patient was seen and evaluated in follow up. Overnight, the patient refused medications. Patient states he is feeling better since admission. Telemetry reviewed. vital signs Vital Sign Date Time Temp Pulse Resp B/P (MAP) Pulse Ox O2 Delivery O2 Flow Rate FiO2 01/20/25 12:31 97.3 77 18 153/78 (103) 95 97.3 01/20/25 09:57 Nasal Cannula* 1 24 Total Intake and Output 01/19/25 01/19/25 01/20/25 15:00 23:00 07:00 Intake Total 400 ml 400 ml Output Total 3 ml Balance 397 ml 400 ml medications Current Medications Medications Dose Ordered Sig/Carmen Route Start Time Stop Time Status Last Admin Dose Admin Multivit/Ca Carb/ B Cmplx/FA/Prenat 1 tab DAILY PO 01/12/25 10:00 01/19/25 09:26 1 TAB Sevelamer HCl 1,200 mg TIDWM PO 01/12/25 08:00 01/20/25 07:57 1,200 MG Famotidine 20 mg DAILY IV 01/12/25 10:00 01/19/25 09:26 20 MG Carvedilol 3.125 mg Q12HR PO 01/12/25 10:00 01/19/25 21:36 3.125 MG Atorvastatin Calcium 10 mg HS PO 01/12/25 22:00 01/19/25 21:37 10 MG Amiodarone HCl 200 mg DAILY PO 01/12/25 10:00 01/19/25 09:26 200 MG Apixaban 2.5 mg BID PO 01/12/25 10:00 01/19/25 21:36 2.5 MG Sodium Chloride 10 ml Q8HR IV 01/12/25 06:00 01/20/25 05:46 10 ML Acetaminophen/ Hydrocodone Bitart 1 tab Q4HP PRN PO 01/12/25 03:15 01/17/25 23:19 1 TAB Ondansetron HCl 4 mg Q4HP PRN IV 01/12/25 03:15 Docusate Sodium 100 mg BIDPRN PRN PO 01/12/25 03:15 Acetaminophen 650 mg Q6HP PRN PO 01/12/25 03:15 01/12/25 17:45 650 MG Nitroglycerin 0.4 mg Q5MINP PRN SL 01/12/25 03:15 Morphine Sulfate 2 mg Q30M PRN IV 01/12/25 03:15 Ipratropium [place] 0.5 mg Q4HR NEB 01/12/25 14:00 01/20/25 09:57 0.5 MG Levalbuterol HCl 1.25 mg Q4HR NEB 01/12/25 14:00 01/20/25 09:57 1.25 MG Vancomycin HCl 0 ml @ 0 mls/hr UD IV 01/12/25 20:00 Hydralazine HCl 10 mg Q4HP PRN IV 01/17/25 12:00 01/19/25 12:40 10 MG objective GENERAL: Alert and oriented x 3. No acute distress.. EYES: PERRL, EOMI. Anicteric. HENT: Moist mucous membranes. LUNGS: Decreased breath sounds. CARDIOVASCULAR: Regular rate and rhythm. ABDOMEN: Soft, nontender and nondistended. EXTREMITIES: No edema. NEUROLOGIC: No focal neurological deficits. SKIN: Warm, dry. laboratory and microbiology Laboratory Tests 01/19/25 06:02 01/18/25 05:00 Test 01/18/25 05:00 Range/Units Serum Glucose 95 74-106 mg/dL Problem List Atrial fibrillation with RVR. Sepsis, unspecified organism. End-stage renal disease on hemodialysis. Generalized weakness. Assessment/Plan Continued all current supportive medical care. Morphine and [place] for pain management. Amiodarone. Eliquis. Lipitor. Coreg. IV antibiotics as ordered. IV Hydralazine for SBP > 160. Additional plan as per the hospital course. Dietary Evaluation Review Comments: 1) Continue liberalizing diet to renal standard diet 2) Consider Nepro Carb steady 240ml daily if PO intake <50% 3) Continue current POC Expected Outcomes/Goals: to meet at least 75% estimated needs fu 3-5 days Plan discussed with: Patient ANASTASIYA KOLB MD January 20, 2025 12:54
[2025-01-21] VITALS (20 sets, daily range): BP systolic 117–155; BP diastolic 66–87; PULSE 80–116; RESP 16–20; TEMP 97.6–98.2; O2SAT 94–100
[2025-01-21 05:49] LABS: Basophils # (auto) 0 10 ^3/uL (0-0.2); Basophils % (auto) 0.5 % (0.0-2.0); Eosinophils # (auto) 0.5 10 ^3/uL (0-0.8); Eosinophils % (auto) 5.8 % (0.0-7.0); Hematocrit 27.2 % (41.0-53.0); Hemoglobin 8.6 g/dL (13.5-17.5); Lymphocytes % (auto) 11.6 % (10.0-50.0); Mean Corpuscular Hemoglobin 32.3 pg (28.0-32.0); Mean Corpuscular Hgb Conc. 31.5 g/dL (32.0-36.0); Mean Corpuscular Volume 102.7 fL (80.0-100.0); Monocytes # (auto) 0.7 10 ^3/uL (0-1.3); Monocytes % (auto) 7.9 % (0.0-12.0); Neutrophils # (auto) 6.5 10 ^3/uL (1.6-8.6); Neutrophils % (auto) 74.2 % (37.0-80.0); Nucleated Red Blood Cells % 0.1 %; Platelet Count (auto) 352 10^3/uL (140-450); Red Blood Cells 2.65 10^6/uL (4.5-5.90); Red Cell Distribution Width 17.5 % (11.8-14.3); White Blood Cell 8.8 10^3/uL (4.4-10.8)
--- NOTE | 2025-01-21 10:07 | DVHPN2 ---
Reviewed: Care Plan, H&P, Labs, Medications, Previous Orders, Radiology Changes from previous H/P or p: No Changes Eyes: No Pain, No Vision change, No Conjunctivae inflammation, No Eyelid inflammation, No Other, No Redness ENT: No Ear pain, No Ear discharge, No Nose pain, No Nose discharge, No Nose congestion, No Mouth pain, No Mouth swelling, No Throat pain, No Throat swelling, No Other Cardiovascular: No Chest Pain, No Palpitations, No Orthopnea, No Paroxysmal Noc. Dyspnea, No Edema, No Lt Headedness, No Other Respiratory: No Cough, No Dry; Shortness of breath; No SOB with excertion, No Wheezing, No Hemoptysis, No Pleuritic Pain, No Sputum, No Other Gastrointestinal: No Nausea, No Vomiting, No Abdominal Pain, No Diarrhea, No Constipation, No Melena, No Hematochezia, No Other Genitourinary: No Dysuria, No Frequency, No Incontinence, No Hematuria, No Retention, No Other Musculoskeletal: No other, No neck pain, No shoulder pain, No arm pain, No back pain, No hand pain, No leg pain, No foot pain Skin: No Rash, No Lesions, No Jaundice, No Bruising, No Other Objective Vitals Vital Signs Date Time Temp Pulse Resp B/P (MAP) Pulse Ox O2 Delivery O2 Flow Rate FiO2 01/21/25 09:36 97 18 100 01/21/25 09:30 Room Air 0.0 01/21/25 09:30 21 01/21/25 09:00 98.1 148/85 (106) 98.1 Intake/Output Intake and Output 01/21/25 07:00 Intake Total 980 ml Output Total 0 ml Balance 980 ml Intake Oral 980 ml Output Urine Total 0 ml # Voids 3 # Bowel Movements 2 Medications Current Medications Medications Dose Ordered Sig/Carmen Route Start Time Stop Time Status Last Admin Dose Admin Multivit/Ca Carb/ B Cmplx/FA/Prenat 1 tab DAILY PO 01/12/25 10:00 01/21/25 08:36 1 TAB Sevelamer HCl 1,200 mg TIDWM PO 01/12/25 08:00 01/21/25 08:36 1,200 MG Famotidine 20 mg DAILY IV 01/12/25 10:00 01/21/25 08:35 20 MG Carvedilol 3.125 mg Q12HR PO 01/12/25 10:00 01/20/25 21:43 3.125 MG Atorvastatin Calcium 10 mg HS PO 01/12/25 22:00 01/20/25 21:43 10 MG Amiodarone HCl 200 mg DAILY PO 01/12/25 10:00 01/20/25 13:51 200 MG Apixaban 2.5 mg BID PO 01/12/25 10:00 01/21/25 08:36 2.5 MG Sodium Chloride 10 ml Q8HR IV 01/12/25 06:00 01/21/25 06:02 10 ML Ondansetron HCl 4 mg Q4HP PRN IV 01/12/25 03:15 Docusate Sodium 100 mg BIDPRN PRN PO 01/12/25 03:15 Acetaminophen 650 mg Q6HP PRN PO 01/12/25 03:15 01/12/25 17:45 650 MG Nitroglycerin 0.4 mg Q5MINP PRN SL 01/12/25 03:15 Ipratropium [place] 0.5 mg Q4HR NEB 01/12/25 14:00 01/21/25 09:30 0.5 MG Levalbuterol HCl 1.25 mg Q4HR NEB 01/12/25 14:00 01/21/25 09:30 1.25 MG Vancomycin HCl 0 ml @ 0 mls/hr UD IV 01/12/25 20:00 Hydralazine HCl 10 mg Q4HP PRN IV 01/17/25 12:00 01/19/25 12:40 10 MG Laboratory Results Laboratory Tests 01/18/25 05:00 01/21/25 05:15 Microbiology Microbiology Date/Time Source Procedure Growth Status 01/17/25 13:02 Blood Blood Culture - Preliminary NO GROWTH AFTER 72 HOURS OF INCUBATION. Resulted 01/16/25 12:06 Catheter Tip Other Aerobic Culture - Final Methicillin Resistant S.aureus Complete Labs and/or images reviewed: Labs reviewed by me, Image(s) reviewed by me Assessment/Plan Assessment/Plan Care Transferred from Dr. Iyer to Dr. Jessenia Vazquez on 01/18/25 1. Acute on chronic hypoxic respiratory failure secondary to acute COPD exacerbation: Pulmonary consult by Dr. Ferreira appreciated 2. Acute COPD exacerbation 3. AFib with RVR CURRENTLY IMPROVED: Cardiology consult by Dr. Lyle appreciated, on Eliquis 4. MRSA bacteremia, treated with vancomycin, repeat blood cultures neg 5. Suspected pneumonia : Continue vancomycin 6. End-stage renal disease on hemodialysis, Nephrology consult for dialysis 7. Chronic congestive heart failure with diastolic dysfunction Patient To get New dialysis cath as the blood cultures have been negative 8. Infected left tunneled dialysis cath removed on 01/15/2025, status post new tunneled dialysis cath right upper chest on 01-19-25, Will inform Nephrology for dialysis Time spent 55 minutes Patient lives in [place] of [facility] Spoke with daughter Agatha on the phone (who is also RN) [phone] and advised current diagnosis management and poor prognosis ANGEL pending Plan discussed with: Patient Date of Service: January 21, 2025 Billing Provider: JESSENIA VAZQUEZ MD Common Visit Codes: [id number] INP/OBS CARE(HIGH) JESSENIA VAZQUEZ MD January 21, 2025 10:07
--- NOTE | 2025-01-21 13:59 | DVHPN2 ---
Progress Note Date Seen: January 21, 2025 Medical Necessity Reason Pt with a Central, PICC or Fol: No Subjective Patient reports: No new complaints Review of Systems: Deferred Objective vital signs Vital Sign Date Time Temp Pulse Resp B/P (MAP) Pulse Ox O2 Delivery O2 Flow Rate FiO2 01/21/25 13:54 98 18 100 01/21/25 13:49 Room Air 0.0 01/21/25 13:49 21 01/21/25 10:54 148/85 01/21/25 09:00 98.1 98.1 Total Intake and Output 01/20/25 01/20/25 01/21/25 15:00 23:00 07:00 Intake Total 480 ml 500 ml Output Total 0 ml Balance 480 ml 500 ml medications Current Medications Medications Dose Ordered Sig/Carmen Route Start Time Stop Time Status Last Admin Dose Admin Multivit/Ca Carb/ B Cmplx/FA/Prenat 1 tab DAILY PO 01/12/25 10:00 01/21/25 08:36 1 TAB Sevelamer HCl 1,200 mg TIDWM PO 01/12/25 08:00 01/21/25 13:12 1,200 MG Famotidine 20 mg DAILY IV 01/12/25 10:00 01/21/25 08:35 20 MG Carvedilol 3.125 mg Q12HR PO 01/12/25 10:00 01/20/25 21:43 3.125 MG Atorvastatin Calcium 10 mg HS PO 01/12/25 22:00 01/20/25 21:43 10 MG Amiodarone HCl 200 mg DAILY PO 01/12/25 10:00 01/20/25 13:51 200 MG Apixaban 2.5 mg BID PO 01/12/25 10:00 01/21/25 08:36 2.5 MG Sodium Chloride 10 ml Q8HR IV 01/12/25 06:00 01/21/25 06:02 10 ML Ondansetron HCl 4 mg Q4HP PRN IV 01/12/25 03:15 Docusate Sodium 100 mg BIDPRN PRN PO 01/12/25 03:15 Acetaminophen 650 mg Q6HP PRN PO 01/12/25 03:15 01/12/25 17:45 650 MG Nitroglycerin 0.4 mg Q5MINP PRN SL 01/12/25 03:15 Ipratropium [place] 0.5 mg Q4HR NEB 01/12/25 14:00 01/21/25 13:49 0.5 MG Levalbuterol HCl 1.25 mg Q4HR NEB 01/12/25 14:00 01/21/25 13:49 1.25 MG Vancomycin HCl 0 ml @ 0 mls/hr UD IV 01/12/25 20:00 Hydralazine HCl 10 mg Q4HP PRN IV 01/17/25 12:00 01/19/25 12:40 10 MG laboratory and microbiology Laboratory Tests 01/21/25 05:15 01/18/25 05:00 Test 01/18/25 05:00 Range/Units Serum Glucose 95 74-106 mg/dL Microbiology Date/Time Source Procedure Growth Status 01/17/25 13:02 Blood Blood Culture - Preliminary NO GROWTH AFTER 72 HOURS OF INCUBATION. Resulted 01/16/25 12:06 Catheter Tip Other Aerobic Culture - Final Methicillin Resistant S.aureus Complete Problem List/Assessment/Plan Problem List/Assessment/Plan ESRD on hemodialysis Wednesday/Wednesday/Wednesday Central line associated bloodstream infection MRSA bacteremia Macrocytic Anemia, likely secondary to ESRD Acute hypoxic respiratory failure Acute COPD exacerbation secondary to probable pneumonia Probable sepsis secondary to pneumonia Paroxysmal Atrial fibrillation-on Eliquis-currently sinus Lactic acidosis History of CVA History of diabetes-patient denies Hypertension GERD Plan: HD today new tunneled cath placed/next HD wednesday if still here or else resume outpt HD schedule need vancomycin iv for 2 weeks with HD after dc Plan discussed with: Patient Dietary Evaluation Review Comments: 1) Continue liberalizing diet to renal standard diet 2) Consider Nepro Carb steady 240ml daily if PO intake <50% 3) Continue current POC Expected Outcomes/Goals: to meet at least 75% estimated needs fu 3-5 days MAHESH GIPSON MD January 21, 2025 13:59
--- NOTE | 2025-01-21 22:46 | DVHPN2 ---
Progress Note - Dictate Date Seen: January 21, 2025 Medical Necessity Reason Pt with a Central, PICC or Fol: No Subjective Patient was seen and evaluated in follow up. Patient is on 1 LPM NC. Patient is resting in bed. Reports minimal SOB. HGB 8.6, HCT 27.2, DEVELOPMENT CHEMIST 8.23, Telemetry reviewed. vital signs Vital Sign Date Time Temp Pulse Resp B/P (MAP) Pulse Ox O2 Delivery O2 Flow Rate FiO2 01/21/25 10:54 97 18 148/85 94 21 01/21/25 09:30 Room Air 0.0 01/21/25 09:00 98.1 98.1 Total Intake and Output 01/20/25 01/20/25 01/21/25 15:00 23:00 07:00 Intake Total 480 ml 500 ml Output Total 0 ml Balance 480 ml 500 ml medications Current Medications Medications Dose Ordered Sig/Carmen Route Start Time Stop Time Status Last Admin Dose Admin Multivit/Ca Carb/ B Cmplx/FA/Prenat 1 tab DAILY PO 01/12/25 10:00 01/21/25 08:36 1 TAB Sevelamer HCl 1,200 mg TIDWM PO 01/12/25 08:00 01/21/25 13:12 1,200 MG Famotidine 20 mg DAILY IV 01/12/25 10:00 01/21/25 08:35 20 MG Carvedilol 3.125 mg Q12HR PO 01/12/25 10:00 01/20/25 21:43 3.125 MG Atorvastatin Cal[place] 10 mg HS PO 01/12/25 22:00 01/20/25 21:43 10 MG Amiodarone HCl 200 mg DAILY PO 01/12/25 10:00 01/20/25 13:51 200 MG Apixaban 2.5 mg BID PO 01/12/25 10:00 01/21/25 08:36 2.5 MG Sodium Chloride 10 ml Q8HR IV 01/12/25 06:00 01/21/25 06:02 10 ML Ondansetron HCl 4 mg Q4HP PRN IV 01/12/25 03:15 Docusate Sodium 100 mg BIDPRN PRN PO 01/12/25 03:15 Acetaminophen 650 mg Q6HP PRN PO 01/12/25 03:15 01/12/25 17:45 650 MG Nitroglycerin 0.4 mg Q5MINP PRN SL 01/12/25 03:15 Ipratropium [place] 0.5 mg Q4HR NEB 01/12/25 14:00 01/21/25 09:30 0.5 MG Levalbuterol HCl 1.25 mg Q4HR NEB 01/12/25 14:00 01/21/25 09:30 1.25 MG Vancomycin HCl 0 ml @ 0 mls/hr UD IV 01/12/25 20:00 Hydralazine HCl 10 mg Q4HP PRN IV 01/17/25 12:00 01/19/25 12:40 10 MG objective GENERAL: Alert and oriented x 3. No acute distress.. EYES: PERRL, EOMI. Anicteric. HENT: Moist mucous membranes. LUNGS: Decreased breath sounds. CARDIOVASCULAR: Regular rate and rhythm. ABDOMEN: Soft, nontender and nondistended. EXTREMITIES: No edema. NEUROLOGIC: No focal neurological deficits. SKIN: Warm, dry. laboratory and microbiology Laboratory Tests 01/21/25 05:15 01/18/25 05:00 Test 01/18/25 05:00 Range/Units Serum Glucose 95 74-106 mg/dL Problem List Atrial fibrillation with RVR. Sepsis, unspecified organism. End-stage renal disease on hemodialysis. Generalized weakness. Assessment/Plan Continued all current supportive medical care. Morphine and [place] for pain management. Amiodarone. Eliquis. Lipitor. Coreg. IV antibiotics as ordered. IV Hydralazine for SBP > 160. Additional plan as per the hospital course. Dietary Evaluation Review Comments: 1) Continue liberalizing diet to renal standard diet 2) Consider Nepro Carb steady 240ml daily if PO intake <50% 3) Continue current POC Expected Outcomes/Goals: to meet at least 75% estimated needs fu 3-5 days Plan discussed with: Patient ANASTASIYA KOLB MD January 21, 2025 13:14
--- NOTE | 2025-01-21 22:50 | DVHPN2 ---
Progress Note - Dictate Date Seen: January 21, 2025 Medical Necessity Reason Pt with a Central, PICC or Fol: No Subjective Patient seen and examined at bedside. Breathing comfortably on room air Overnight events reviewed. vital signs Vital Sign Date Time Temp Pulse Resp B/P (MAP) Pulse Ox O2 Delivery O2 Flow Rate FiO2 01/21/25 22:33 103 01/21/25 22:30 18 100 01/21/25 21:00 97.6 155/85 (108) 97.6 01/21/25 18:45 Nasal Cannula* 1 24 Total Intake and Output 01/20/25 01/20/25 01/21/25 15:00 23:00 07:00 Intake Total 480 ml 500 ml Output Total 0 ml Balance 480 ml 500 ml medications Current Medications Medications Dose Ordered Sig/Carmen Route Start Time Stop Time Status Last Admin Dose Admin Multivit/Ca Carb/ B Cmplx/FA/Prenat 1 tab DAILY PO 01/12/25 10:00 01/21/25 08:36 1 TAB Sevelamer HCl 1,200 mg TIDWM PO 01/12/25 08:00 01/21/25 17:50 1,200 MG Famotidine 20 mg DAILY IV 01/12/25 10:00 01/21/25 08:35 20 MG Carvedilol 3.125 mg Q12HR PO 01/12/25 10:00 01/21/25 22:33 3.125 MG Atorvastatin Calcium 10 mg HS PO 01/12/25 22:00 01/21/25 22:34 10 MG Amiodarone HCl 200 mg DAILY PO 01/12/25 10:00 01/20/25 13:51 200 MG Apixaban 2.5 mg BID PO 01/12/25 10:00 01/21/25 22:34 2.5 MG Sodium Chloride 10 ml Q8HR IV 01/12/25 06:00 01/21/25 22:38 10 ML Ondansetron HCl 4 mg Q4HP PRN IV 01/12/25 03:15 Docusate Sodium 100 mg BIDPRN PRN PO 01/12/25 03:15 Acetaminophen 650 mg Q6HP PRN PO 01/12/25 03:15 01/12/25 17:45 650 MG Nitroglycerin 0.4 mg Q5MINP PRN SL 01/12/25 03:15 Ipratropium [place] 0.5 mg Q4HR NEB 01/12/25 14:00 01/21/25 22:29 0.5 MG Levalbuterol HCl 1.25 mg Q4HR NEB 01/12/25 14:00 01/21/25 22:29 1.25 MG Vancomycin HCl 0 ml @ 0 mls/hr UD IV 01/12/25 20:00 Hydralazine HCl 10 mg Q4HP PRN IV 01/17/25 12:00 01/19/25 12:40 10 MG objective Gen.: Patient lying in bed in no apparent distress. On room air Head: Normocephalic, atraumatic. Eyes: EOMI/PERRLA. Ears: Normal hearing. Normal anatomy. Neck/trachea: Trachea midline, supple. Nose: Normal external anatomy. Mouth: Moist mucous membranes. Chest: Decreased air entry bilaterally. No wheezing or rhonchi. Cardiovascular: Positive S1, positive S2. Regular rate and rhythm. Abdomen: Positive bowel sounds in all 4 quadrants. Soft, non-tender, non- distended. : Deferred. Rectal: Deferred. Skin: Warm, dry. Intact. Extremities: 2+ radial pulses bilaterally. No lower extremity edema. Neuro: Awake, alert, oriented x3. No gross motor or sensory deficits. Cranial nerves II through XII intact. Gait not assessed. laboratory and microbiology Laboratory Tests 01/21/25 05:15 01/18/25 05:00 Test 01/18/25 05:00 Range/Units Serum Glucose 95 74-106 mg/dL Assessment/Plan Impression: Acute hypoxic respiratory failure Dependence on supplemental oxygen Atrial fibrillation with rapid ventricular response End-stage renal disease, on hemodialysis Congestive heart failure Bacteremia with GPC in clusters Obesity BMI 32.6 Events: Currently breathing on room air. No distress. Supplemental O2 PRN ABG reviewed. Hemodialysis per Nephrology - plan for HD S/p new tunneled catheter placement. Monitor renal function. Monitor electrolytes. Supplement as necessary Nephro recs appreciated. Continue bronchodilators Continue antibiotics ID recommendations appreciated Incentive spirometry Amiodarone held Monitor hemoglobin Pepcid for GI prophylaxis Disposition per hospitalist Labs and imaging reviewed. Rest of plan as noted below Plan: Supplemental oxygen PRN Titrate to keep O2 sats above 92%. Continue bronchodilators. Continue antibiotics Repeat blood cultures showed no growth after 72 hours Prior blood cultures grew MRSA ID recommendations appreciated HD per Nephrology Nephrology recs appreciated. Monitor renal function. Monitor electrolytes. Supplement as necessary. Monitor ins and outs. DVT prophylaxis. Prognosis: Guarded given patient's multiple co-morbidities. Rest of plan per hospitalist and other consultants. Thank you, Dr. Iyer, for allowing me to participate in this patient's care. Further recommendations will depend on the patient's clinical course. Please do not hesitate to contact me if you have any questions or concerns. This medical document was created using an electronic medical record system with [employer] dictation system. Although these documentations are being carefully reviewed, there may still be some phonetic and typographical changes. The errors are purely typographical, due to imperfection on the software program, and do not reflect any compromise in the patient's medical care. Dietary Evaluation Review Comments: 1) Continue liberalizing diet to renal standard diet 2) Consider Nepro Carb steady 240ml daily if PO intake <50% 3) Continue current POC Expected Outcomes/Goals: to meet at least 75% estimated needs fu 3-5 days Plan discussed with: Patient, Other (RN Lorelei) JUANITO ADAMS MD January 21, 2025 22:50
[2025-01-22] VITALS (19 sets, daily range): BP systolic 126–165; BP diastolic 73–96; PULSE 60–107; RESP 16–20; TEMP 97.4–98.1; O2SAT 91–100
[2025-01-22 10:25] LABS: Hemoglobin 8.5 g/dL (13.5-17.5); Mean Corpuscular Hemoglobin 31.8 pg (28.0-32.0); Red Blood Cells 2.67 10^6/uL (4.5-5.90)
[2025-01-22 10:27] LABS: Hematocrit 27.2 % (41.0-53.0); Mean Corpuscular Hgb Conc. 31.2 g/dL (32.0-36.0); Mean Corpuscular Volume 101.7 fL (80.0-100.0); Platelet Count (auto) 328 10^3/uL (140-450); Red Cell Distribution Width 17.2 % (11.8-14.3); White Blood Cell 6.8 10^3/uL (4.4-10.8)
[2025-01-22 10:35] LABS: Band Neutrophils % (manual) 0; Basophils % (manual) 0 (0.0-2.0); Blast Cells 0; Metamyelocytes % 0; Myelocytes % 0; Promyelocytes % 0; Reactive Lymphocytes 0
--- NOTE | 2025-01-22 10:50 | DVHPN2 ---
Reviewed: Care Plan, H&P, Labs, Medications, Previous Orders, Radiology Changes from previous H/P or p: No Changes Eyes: No Pain, No Vision change, No Conjunctivae inflammation, No Eyelid inflammation, No Other, No Redness ENT: No Ear pain, No Ear discharge, No Nose pain, No Nose discharge, No Nose congestion, No Mouth pain, No Mouth swelling, No Throat pain, No Throat swelling, No Other Cardiovascular: No Chest Pain, No Palpitations, No Orthopnea, No Paroxysmal Noc. Dyspnea, No Edema, No Lt Headedness, No Other Respiratory: No Cough, No Dry; Shortness of breath; No SOB with excertion, No Wheezing, No Hemoptysis, No Pleuritic Pain, No Sputum, No Other Gastrointestinal: No Nausea, No Vomiting, No Abdominal Pain, No Diarrhea, No Constipation, No Melena, No Hematochezia, No Other Genitourinary: No Dysuria, No Frequency, No Incontinence, No Hematuria, No Retention, No Other Musculoskeletal: No other, No neck pain, No shoulder pain, No arm pain, No back pain, No hand pain, No leg pain, No foot pain Skin: No Rash, No Lesions, No Jaundice, No Bruising, No Other Objective Vitals Vital Signs Date Time Temp Pulse Resp B/P (MAP) Pulse Ox O2 Delivery O2 Flow Rate FiO2 01/22/25 09:46 62 20 100 01/22/25 09:40 Nasal Cannula 1.0 01/22/25 09:40 24 01/22/25 09:31 126/73 01/22/25 05:00 97.9 97.9 Intake/Output Intake and Output 01/22/25 07:00 Intake Total 860 ml Output Total 82 ml Balance 778 ml Intake Oral 860 ml Output Urine Total 82 ml # Bowel Movements 1 Medications Current Medications Medications Dose Ordered Sig/Carmen Route Start Time Stop Time Status Last Admin Dose Admin Multivit/Ca Carb/ B Cmplx/FA/Prenat 1 tab DAILY PO 01/12/25 10:00 01/22/25 09:32 1 TAB Sevelamer HCl 1,200 mg TIDWM PO 01/12/25 08:00 01/22/25 08:16 1,200 MG Famotidine 20 mg DAILY IV 01/12/25 10:00 01/22/25 09:32 20 MG Carvedilol 3.125 mg Q12HR PO 01/12/25 10:00 01/22/25 09:31 3.125 MG Atorvastatin Calcium 10 mg HS PO 01/12/25 22:00 01/21/25 22:34 10 MG Amiodarone HCl 200 mg DAILY PO 01/12/25 10:00 01/22/25 09:32 200 MG Apixaban 2.5 mg BID PO 01/12/25 10:00 01/22/25 09:32 2.5 MG Sodium Chloride 10 ml Q8HR IV 01/12/25 06:00 01/22/25 05:25 10 ML Ondansetron HCl 4 mg Q4HP PRN IV 01/12/25 03:15 Docusate Sodium 100 mg BIDPRN PRN PO 01/12/25 03:15 Acetaminophen 650 mg Q6HP PRN PO 01/12/25 03:15 01/12/25 17:45 650 MG Nitroglycerin 0.4 mg Q5MINP PRN SL 01/12/25 03:15 Ipratropium [place] 0.5 mg Q4HR NEB 01/12/25 14:00 01/22/25 09:40 0.5 MG Levalbuterol HCl 1.25 mg Q4HR NEB 01/12/25 14:00 01/22/25 09:39 1.25 MG Vancomycin HCl 0 ml @ 0 mls/hr UD IV 01/12/25 20:00 Hydralazine HCl 10 mg Q4HP PRN IV 01/17/25 12:00 01/19/25 12:40 10 MG Laboratory Results Laboratory Tests 01/18/25 05:00 01/22/25 10:15 Microbiology Microbiology Date/Time Source Procedure Growth Status 01/17/25 13:02 Blood Blood Culture - Preliminary NO GROWTH AFTER 72 HOURS OF INCUBATION. Resulted 01/16/25 12:06 Catheter Tip Other Aerobic Culture - Final Methicillin Resistant S.aureus Complete Labs and/or images reviewed: Labs reviewed by me, Image(s) reviewed by me Assessment/Plan Assessment/Plan Care Transferred from Dr. Iyer to Dr. Jessenia Vazquez on 01/18/25 1. Acute on chronic hypoxic respiratory failure secondary to acute COPD exacerbation: Pulmonary consult by Dr. Ferreira appreciated 2. Acute COPD exacerbation 3. AFib with RVR CURRENTLY IMPROVED: Cardiology consult by Dr. Lyle appreciated, on Eliquis 4. MRSA bacteremia, treated with vancomycin, repeat blood cultures neg 5. Suspected pneumonia : Continue vancomycin 6. End-stage renal disease on hemodialysis, Nephrology consult for dialysis 7. Chronic congestive heart failure with diastolic dysfunction Patient To get New dialysis cath as the blood cultures have been negative 8. Infected left tunneled dialysis cath removed on 01/15/2025, status post new tunneled dialysis cath right upper chest on 01-19-25, Will inform Nephrology for dialysis Time spent 55 minutes Patient lives in [place] of [facility] Spoke with daughter Agatha on the phone (who is also RN) [phone] and advised current diagnosis management and poor prognosis ANGEL pending Plan discussed with: Patient Date of Service: January 22, 2025 Billing Provider: JESSENIA VAZQUEZ MD Common Visit Codes: [id number] INP/OBS CARE(HIGH) JESSENIA VAZQUEZ MD January 22, 2025 10:50
--- NOTE | 2025-01-22 11:30 | DVHPN2 ---
Progress Note - Dictate Date Seen: January 22, 2025 Medical Necessity Reason Pt with a Central, PICC or Fol: No vital signs Vital Sign Date Time Temp Pulse Resp B/P (MAP) Pulse Ox O2 Delivery O2 Flow Rate FiO2 01/22/25 09:46 62 20 100 01/22/25 09:40 Nasal Cannula 1.0 01/22/25 09:40 24 01/22/25 09:31 126/73 01/22/25 09:00 97.9 97.9 Total Intake and Output 01/21/25 01/21/25 01/22/25 15:00 23:00 07:00 Intake Total 720 ml 140 ml Output Total 2 ml 80 ml Balance 718 ml 60 ml medications Current Medications Medications Dose Ordered Sig/Carmen Route Start Time Stop Time Status Last Admin Dose Admin Multivit/Ca Carb/ B Cmplx/FA/Prenat 1 tab DAILY PO 01/12/25 10:00 01/22/25 09:32 1 TAB Sevelamer HCl 1,200 mg TIDWM PO 01/12/25 08:00 01/22/25 08:16 1,200 MG Famotidine 20 mg DAILY IV 01/12/25 10:00 01/22/25 09:32 20 MG Carvedilol 3.125 mg Q12HR PO 01/12/25 10:00 01/22/25 09:31 3.125 MG Atorvastatin Calcium 10 mg HS PO 01/12/25 22:00 01/21/25 22:34 10 MG Amiodarone HCl 200 mg DAILY PO 01/12/25 10:00 01/22/25 09:32 200 MG Apixaban 2.5 mg BID PO 01/12/25 10:00 01/22/25 09:32 2.5 MG Sodium Chloride 10 ml Q8HR IV 01/12/25 06:00 01/22/25 05:25 10 ML Ondansetron HCl 4 mg Q4HP PRN IV 01/12/25 03:15 Docusate Sodium 100 mg BIDPRN PRN PO 01/12/25 03:15 Acetaminophen 650 mg Q6HP PRN PO 01/12/25 03:15 01/12/25 17:45 650 MG Nitroglycerin 0.4 mg Q5MINP PRN SL 01/12/25 03:15 Ipratropium [place] 0.5 mg Q4HR NEB 01/12/25 14:00 01/22/25 09:40 0.5 MG Levalbuterol HCl 1.25 mg Q4HR NEB 01/12/25 14:00 01/22/25 09:39 1.25 MG Vancomycin HCl 0 ml @ 0 mls/hr UD IV 01/12/25 20:00 Hydralazine HCl 10 mg Q4HP PRN IV 01/17/25 12:00 01/19/25 12:40 10 MG laboratory and microbiology Laboratory Tests 01/22/25 10:15 01/18/25 05:00 Test 01/18/25 05:00 Range/Units Serum Glucose 95 74-106 mg/dL Assessment/Plan Impression: Acute hypoxic respiratory failure Dependence on supplemental oxygen Atrial fibrillation with rapid ventricular response End-stage renal disease, on hemodialysis Congestive heart failure Bacteremia with GPC in clusters Obesity Patient seen and examined Events: Low oxygen requirements On room air No acute events Labs and imaging reviewed Plan: Supplemental oxygen PRN Titrate to keep O2 sats above 92%. Incentive spirometry Continue bronchodilators Continue antibiotics F/u cultures and ID Monitor renal function HD as per nephrology Management deferred Monitor electrolytes Supplement as necessary Monitor ins and outs Monitor hemoglobin Pepcid for GI prophylaxis DVT prophylaxis Dietary Evaluation Review Comments: 1) Continue liberalizing diet to renal standard diet 2) Consider Nepro Carb steady 240ml daily if PO intake <50% 3) Continue current POC Expected Outcomes/Goals: to meet at least 75% estimated needs fu 3-5 days Plan discussed with: Patient ERWIN ROCK MD January 22, 2025 11:30
[2025-01-22 11:49] LABS: Eosinophils % (manual) 4 (0-7); Lymphocytes % (manual) 13 (10.0-50.0); Macrocytosis Slight; Monocytes % (manual) 6 (0-12); Platelet Estimate Adequate
[2025-01-22 11:50] LABS: Anisocytosis Slight
--- NOTE | 2025-01-22 12:58 | DVHPN2 ---
Progress Note Date Seen: January 22, 2025 Resident Creating Document: BEATRIZ ROCK RESIDENT Medical Necessity Reason Pt with a Central, PICC or Fol: No Subjective Review of Systems Mr. Muñoz is a 79-year-old male with PMHx AFib on Eliquis, ESRD on hemodialysis with [facility] nephro Wednesday/Wednesday/Wednesday for the past 2 years, COPD not on home oxygen, history of stroke twice last 09/2023, denies diabetes mellitus, hypertension who presented to the ER with a chief complaint of shortness of breaths and generalized weakness. Patient is A&O x3, reports experiencing flu-like symptoms including fever, chills, generalized weakness and body ache for the past 3 weeks. He has been experiencing worsening shortness of breaths especially on exertion associated with sore throat and congestion, can not cough up the phlegm. Patient denies orthopnea, PND, chest pain, palpitations. Last hemodialysis session was on Wednesday per patient Patient reports making urine PMHx: AFib on Eliquis, ESRD on hemodialysis with [facility] nephro Wednesday/Wednesday/Wednesday for the past 2 years, COPD not on home oxygen, history of stroke twice last 09/2023, denies diabetes mellitus, hypertension Social history: Lives alone, does not have a caregiver, quit smoking more than 15 years back, previously heavy smoker, denies drinking or illicit drug use Home medications: Eliquis 2.5 mg b.i.d., aspirin, atorvastatin, metoprolol tartrate 50 mg, pantoprazole, sevelamer TID 01/15 - Patient seen and examined the bedside. Left subclavian tunneled cath draining purulent material, IR consulted for removal. 01/16 - patient is seen and examined at the bedside. Weaned of oxygen from 3 L to 1 L, Saturating 98 on 1 L oxygen. 2 L HD yesterday around 5pm. Tunneled catheter removed by IR. 01/17 - seen and examined at the bedside. Currently on 2 L oxygen supplementation. Blood culture 01/11 and 01/13 showing MRSA, 01/15// pending 01/22 - patient seen and examined at bedside. Reports feeling better. Hemodialysis scheduled for tomorrow. Other Systems: Patient seen and examined by myself today in round with the resident, I agree with his assessment and plan Objective vital signs Vital Sign Date Time Temp Pulse Resp B/P (MAP) Pulse Ox O2 Delivery O2 Flow Rate FiO2 01/22/25 09:46 62 20 100 01/22/25 09:40 Nasal Cannula 1.0 01/22/25 09:40 24 01/22/25 09:31 126/73 01/22/25 09:00 97.9 97.9 Total Intake and Output 01/21/25 01/21/25 01/22/25 15:00 23:00 07:00 Intake Total 720 ml 140 ml Output Total 2 ml 80 ml Balance 718 ml 60 ml medications Current Medications Medications Dose Ordered Sig/Carmen Route Start Time Stop Time Status Last Admin Dose Admin Multivit/Ca Carb/ B Cmplx/FA/Prenat 1 tab DAILY PO 01/12/25 10:00 01/22/25 09:32 1 TAB Sevelamer HCl 1,200 mg TIDWM PO 01/12/25 08:00 01/22/25 08:16 1,200 MG Famotidine 20 mg DAILY IV 01/12/25 10:00 01/22/25 09:32 20 MG Carvedilol 3.125 mg Q12HR PO 01/12/25 10:00 01/22/25 09:31 3.125 MG Atorvastatin Calcium 10 mg HS PO 01/12/25 22:00 01/21/25 22:34 10 MG Amiodarone HCl 200 mg DAILY PO 01/12/25 10:00 01/22/25 09:32 200 MG Apixaban 2.5 mg BID PO 01/12/25 10:00 01/22/25 09:32 2.5 MG Sodium Chloride 10 ml Q8HR IV 01/12/25 06:00 01/22/25 05:25 10 ML Ondansetron HCl 4 mg Q4HP PRN IV 01/12/25 03:15 Docusate Sodium 100 mg BIDPRN PRN PO 01/12/25 03:15 Acetaminophen 650 mg Q6HP PRN PO 01/12/25 03:15 01/12/25 17:45 650 MG Nitroglycerin 0.4 mg Q5MINP PRN SL 01/12/25 03:15 Ipratropium [place] 0.5 mg Q4HR NEB 01/12/25 14:00 01/22/25 09:40 0.5 MG Levalbuterol HCl 1.25 mg Q4HR NEB 01/12/25 14:00 01/22/25 09:39 1.25 MG Vancomycin HCl 0 ml @ 0 mls/hr UD IV 01/12/25 20:00 Hydralazine HCl 10 mg Q4HP PRN IV 01/17/25 12:00 01/19/25 12:40 10 MG Examination Obese male patient lying in the bed General: Obese, afebrile,, mucosae are moist Cardiovascular: Regular S1 and S2. No murmurs, gallops or rubs. No JVD elevation. 1+ bilateral pedal edema pitting. Right tunneled catheter seen. Respiratory: Decreased bilateral air entry on nasal cannula supplementation Abdomen: Soft, nontender, nondistended, normoactive bowel sounds, no rebound tenderness, no organomegaly, no masses Genitourinary: Deferred MSK/skin: Mobilizes 4 limbs. Skin is dry and warm Psych/Mental Status: A/Ox3 laboratory and microbiology Laboratory Tests 01/22/25 10:15 01/18/25 05:00 Test 01/18/25 05:00 Range/Units Serum Glucose 95 74-106 mg/dL Microbiology Date/Time Source Procedure Growth Status 01/17/25 13:02 Blood Blood Culture - Preliminary NO GROWTH AFTER 72 HOURS OF INCUBATION. Resulted 01/16/25 12:06 Catheter Tip Other Aerobic Culture - Final Methicillin Resistant S.aureus Complete Labs and/or images reviewed: Labs reviewed by me, Image(s) reviewed by me Problem List/Assessment/Plan Problem List/Assessment/Plan ESRD on hemodialysis Wednesday/Wednesday/Wednesday Central line associated bloodstream infection MRSA bacteremia Macrocytic Anemia, likely secondary to ESRD Acute hypoxic respiratory failure Acute COPD exacerbation secondary to probable pneumonia Probable sepsis secondary to pneumonia Paroxysmal Atrial fibrillation-on Eliquis-currently sinus Lactic acidosis History of CVA History of diabetes-patient denies Hypertension GERD Plan: Tunneled catheter placed by IR 01/18. Hemodialysis recontinued starting 01/19, 01/21. Hemodialysis scheduled for 01/23. Previously patient underwent hemodialysis 01/12, and 01/15. Blood cultures 01/13, 01/15, 01/16, 01/17 negative. Underwent left heart catheter removal 01/16. Catheter tip groin MRSA. Patient will require IV vancomycin 2 weeks with a HD after DC Continue IV antibiotics. Continue sevelamer t.i.d. We will continue to follow up Plan discussed with patient in which all questions have been answered Case discussed with Dr. Chow Plan discussed with: Patient Dietary Evaluation Review Comments: 1) Continue liberalizing diet to renal standard diet 2) Consider Nepro Carb steady 240ml daily if PO intake <50% 3) Continue current POC Expected Outcomes/Goals: to meet at least 75% estimated needs fu 3-5 days BEATRIZ ROCK January 22, 2025 12:57 TISH CHOW MD January 22, 2025 14:47
[2025-01-22] MEDS: VANCOMYCIN 500mg/100mL PREMIX or KIT IV ONE (13:41)
--- NOTE | 2025-01-22 22:26 | DVHPN2 ---
Progress Note - Dictate Date Seen: January 22, 2025 Medical Necessity Reason Pt with a Central, PICC or Fol: No Subjective Patient was seen and evaluated in follow up. Patient is on 2 LPM NC. Patient is complaining of SOB. Hemodialysis scheduled for tomorrow. HGB 8.5, HCT 27.2, Cashier Court[employer] Booth 5.78. Telemetry reviewed. vital signs Vital Sign Date Time Temp Pulse Resp B/P (MAP) Pulse Ox O2 Delivery O2 Flow Rate FiO2 01/22/25 21:28 116 148/80 01/22/25 20:41 97.7 20 98 97.7 01/22/25 20:00 Nasal Cannula* 2 28 Total Intake and Output 01/21/25 01/21/25 01/22/25 15:00 23:00 07:00 Intake Total 720 ml 140 ml Output Total 2 ml 80 ml Balance 718 ml 60 ml medications Current Medications Medications Dose Ordered Sig/Carmen Route Start Time Stop Time Status Last Admin Dose Admin Multivit/Ca Carb/ B Cmplx/FA/Prenat 1 tab DAILY PO 01/12/25 10:00 01/22/25 09:32 1 TAB Sevelamer HCl 1,200 mg TIDWM PO 01/12/25 08:00 01/22/25 18:34 1,200 MG Famotidine 20 mg DAILY IV 01/12/25 10:00 01/22/25 09:32 20 MG Carvedilol 3.125 mg Q12HR PO 01/12/25 10:00 01/22/25 20:28 3.125 MG Atorvastatin Calcium 10 mg HS PO 01/12/25 22:00 01/22/25 20:27 10 MG Amiodarone HCl 200 mg DAILY PO 01/12/25 10:00 01/22/25 09:32 200 MG Apixaban 2.5 mg BID PO 01/12/25 10:00 01/22/25 20:27 2.5 MG Sodium Chloride 10 ml Q8HR IV 01/12/25 06:00 01/22/25 20:27 10 ML Ondansetron HCl 4 mg Q4HP PRN IV 01/12/25 03:15 Docusate Sodium 100 mg BIDPRN PRN PO 01/12/25 03:15 Acetaminophen 650 mg Q6HP PRN PO 01/12/25 03:15 01/12/25 17:45 650 MG Nitroglycerin 0.4 mg Q5MINP PRN SL 01/12/25 03:15 Ipratropium [place] 0.5 mg Q4HR NEB 01/12/25 14:00 01/22/25 18:40 0.5 MG Levalbuterol HCl 1.25 mg Q4HR NEB 01/12/25 14:00 01/22/25 18:40 1.25 MG Vancomycin HCl 0 ml @ 0 mls/hr UD IV 01/12/25 20:00 Hydralazine HCl 10 mg Q4HP PRN IV 01/17/25 12:00 01/22/25 20:28 10 MG objective GENERAL: Alert and oriented x 3. No acute distress.. EYES: PERRL, EOMI. Anicteric. HENT: Moist mucous membranes. LUNGS: Decreased breath sounds. CARDIOVASCULAR: Regular rate and rhythm. ABDOMEN: Soft, nontender and nondistended. EXTREMITIES: No edema. NEUROLOGIC: No focal neurological deficits. SKIN: Warm, dry. laboratory and microbiology Laboratory Tests 01/22/25 10:15 01/18/25 05:00 Test 01/18/25 05:00 Range/Units Serum Glucose 95 74-106 mg/dL Problem List Atrial fibrillation with RVR. Sepsis, unspecified organism. End-stage renal disease on hemodialysis. Generalized weakness. Assessment/Plan Continued all current supportive medical care. Morphine and [place] for pain management. Amiodarone. Eliquis. Lipitor. Coreg. IV antibiotics as ordered. IV Hydralazine for SBP > 160. Additional plan as per the hospital course. Dietary Evaluation Review Comments: 1) Continue liberalizing diet to renal standard diet 2) Consider Nepro Carb steady 240ml daily if PO intake <50% 3) Continue current POC Expected Outcomes/Goals: to meet at least 75% estimated needs fu 3-5 days Plan discussed with: Patient ANASTASIYA KOLB MD January 22, 2025 22:26
[2025-01-23] VITALS (17 sets, daily range): BP systolic 134–164; BP diastolic 86–96; PULSE 80–113; RESP 18–20; TEMP 96.3–98; O2SAT 94–100
[2025-01-23 06:30] LABS: Eosinophils # (auto) 0.8 10 ^3/uL (0-0.8); Hemoglobin 9.7 g/dL (13.5-17.5); Monocytes # (auto) 0.6 10 ^3/uL (0-1.3); Nucleated Red Blood Cells % 0.1 %
[2025-01-23 06:36] LABS: Alanine Aminotransferase 18 U/L (7-40); Alkaline Phosphatase 89 U/L (46-116); Anion Gap 11 (5-15); Aspartate Aminotransferase 27 U/L (13-40); BUN/Creatinine Ratio 5.6 (10.0-20.0); Carbon Dioxide 25 mmol/L (20-31); Chloride 101 mmol/L (98-107); Magnesium 2.2 mg/dL (1.6-2.6); Sodium 137 mmol/L (136-145); Total Protein 7.4 g/dL (5.7-8.2)
[2025-01-23 06:40] LABS: Basophils # (auto) 0.1 10 ^3/uL (0-0.2); Basophils % (auto) 0.7 % (0.0-2.0); Eosinophils % (auto) 10.2 % (0.0-7.0); Hematocrit 31.4 % (41.0-53.0); Lymphocytes # (auto) 0.9 10 ^3/uL (0.4-5.4); Lymphocytes % (auto) 11.5 % (10.0-50.0); Mean Corpuscular Hemoglobin 32.6 pg (28.0-32.0); Mean Corpuscular Hgb Conc. 30.9 g/dL (32.0-36.0); Mean Corpuscular Volume 105.5 fL (80.0-100.0); Monocytes % (auto) 7.4 % (0.0-12.0); Neutrophils # (auto) 5.8 10 ^3/uL (1.6-8.6); Neutrophils % (auto) 70.2 % (37.0-80.0); Platelet Count (auto) 346 10^3/uL (140-450); Red Blood Cells 2.98 10^6/uL (4.5-5.90); Red Cell Distribution Width 17.2 % (11.8-14.3); White Blood Cell 8.2 10^3/uL (4.4-10.8)
[2025-01-23 06:51] LABS: Bilirubin, Total 0.2 mg/dL (0.2-1.0); Blood Urea Nitrogen 38 mg/dL (9-23); Glucose 108 mg/dL (74-106)
[2025-01-23] MEDS: SODIUM CHL 0.9% 1000 ML BAG XX ONE (07:00)
--- NOTE | 2025-01-23 11:07 | DVHDS2 ---
Discharge Summary Date of Admission January 12, 2025 at 03:07 Date of Discharge: January 23, 2025 Admitting Diagnosis Generalized weakness Wounds: None Labs/Diagnostic Data: Laboratory Results Test 01/23/25 05:46 01/22/25 10:15 01/18/25 14:17 01/13/25 11:22 White Blood Count 8.2 10^3/uL (4.4-10.8) Red Blood Count 2.98 10^6/uL (4.5-5.90) Hemoglobin 9.7 g/dL (13.5-17.5) Hematocrit 31.4 % (41.0-53.0) Mean Corpuscular Volume 105.5 fL (80.0-100.0) Mean Corpuscular Hemoglobin 32.6 pg (28.0-32.0) Mean Corpuscular Hemoglobin Concent 30.9 g/dL (32.0-36.0) Red Cell Distribution Width 17.2 % (11.8-14.3) Platelet Count 346 10^3/uL (140-450) Mean Platelet Volume 7.3 fL (6.9-10.8) Neutrophils (%) (Auto) 70.2 % (37.0-80.0) Lymphocytes (%) (Auto) 11.5 % (10.0-50.0) Monocytes (%) (Auto) 7.4 % (0.0-12.0) Eosinophils (%) (Auto) 10.2 % (0.0-7.0) Basophils (%) (Auto) 0.7 % (0.0-2.0) Neutrophils # (Auto) 5.8 10 ^3/uL (1.6-8.6) Lymphocytes # (Auto) 0.9 10 ^3/uL (0.4-5.4) Monocytes # (Auto) 0.6 10 ^3/uL (0-1.3) Eosinophils # (Auto) 0.8 10 ^3/uL (0-0.8) Basophils # (Auto) 0.1 10 ^3/uL (0-0.2) Nucleated Red Blood Cells 0.1 % Sodium Level 137 mmol/L (136-145) Potassium Level 4.0 mmol/L (3.5-5.1) Chloride Level 101 mmol/L (98-107) Carbon Dioxide Level 25 mmol/L (20-31) Anion Gap 11 (5-15) Blood Urea Nitrogen 38 mg/dL (9-23) Creatinine 6.77 mg/dL (0.700-1.30) Glomerular Filtration Rate Calc 8 mL/min (>90) BUN/Creatinine Ratio 5.6 (10.0-20.0) Serum Glucose 108 mg/dL (74-106) Calcium Level 10.0 mg/dL (8.7-10.4) Magnesium Level 2.2 mg/dL (1.6-2.6) Total Bilirubin 0.2 mg/dL (0.2-1.0) Aspartate Amino Transferase (AST) 27 U/L (13-40) Alanine Aminotransferase (ALT) 18 U/L (7-40) Alkaline Phosphatase 89 U/L (46-116) Total Protein 7.4 g/dL (5.7-8.2) Albumin 4.0 g/dL (3.2-4.8) Random Vancomycin Level 18.4 ug/mL (5-10) Differential Total Cells Counted 100.0 (100) Neutrophils % (Manual) 77 (37.0-80.0) Band Neutrophils % (Manual) 0 Lymphocytes % (Manual) 13 (10.0-50.0) Monocytes % (Manual) 6 (0-12) Eosinophils % (Manual) 4 (0-7) Basophils % (Manual) 0 (0.0-2.0) Metamyelocytes % (manual) 0 Myelocytes % (Manual) 0 Promyelocytes % (Manual) 0 Blast Cells % (Manual) 0 Reactive Lymphocytes 0 Platelet Estimate Adequate Anisocytosis (manual) Slight Macrocytosis Slight Prothrombin Time 10.9 sec (9.3-11.8) Prothrombin Time INR 1.03 (0.9-1.15) Activated Partial Thromboplast Time 23.6 SEC (24.5-34.5) POC Glucose 127 mg/dl (70-106) Test 01/13/25 06:31 01/12/25 11:12 01/12/25 04:58 01/11/25 23:30 Hemoglobin A1c < 3.8 % A1C (<5.7) Lactic Acid Level 2.1 mmol/L (0.4-2.0) Phosphorus Level 3.0 mg/dL (2.4-5.1) Vitamin D 25-Hydroxy 58.1 ng/mL (30.0-100) Parathyroid Hormone (Intact) 294.4 pg/mL (18.4-80.1) Hepatitis B Surface Antigen Negative (Negative) Influenza Type A Antigen Negative (Negative) Influenza Type B Antigen Negative (Negative) SARS-CoV-2 Antigen (Rapid) Negative (NEGATIVE) Test 01/11/25 21:09 01/11/25 20:38 Troponin I High Sensitivity 17 ng/L (</=54) B-Type Natriuretic Peptide 175.50 pg/mL (0-100) Blood Gas Specimen Type Arterial Blood Gas Sample Site Left radial Blood Gas Patient Temperature 37.0 Arterial Blood Date Drawn [id number] Arterial Blood pH 7.415 (7.350-7.450) Arterial Blood Partial Pressure CO2 47.5 mmHg (35.0-48.0) Arterial Blood Partial Pressure O2 134.3 mmHg (83.0-108.0) Arterial Blood HCO3 29.8 mmol/L (21.0-28.0) Arterial Blood Oxygen Saturation 99.2 % (94.0-98.0) Arterial Blood Base Excess 4.5 mmol/L (-2.0-3.0) Arterial Blood Oxyhemoglobin 98.0 % (94.0-98.0) Arterial Blood Carboxyhemoglobin 0.7 % (0.5-1.5) Arterial Blood Methemoglobin 0.5 % (0.0-1.5) Cornelio Test Yes Blood Gas Total Hemoglobin 10.40 g/dL (13.5-17.5) Blood Gas Liter Flow 15.00 Blood Gas Modality Mask - nrb FiO2 % 100.0 Other Laboratory Tests 01/23/25 05:46 Brief Hx & Hospital Course: 79-year-old male with a history of ESRD on dialysis AFib with a RVR COPD chronic hypoxic respiratory failure chronic congestive heart failure with the diastolic dysfunction admitted for generalized weakness and confusion found to have sepsis secondary to MRSA bacteremia treated with the vancomycin repeat blood cultures came negative seen by ID Dr Dr. Jeffries, cardiology Dr. Lyle. He was found to have infected dialysis cath which was removed and new cath was placed by the radiologist seen by Cardiology Dr. Lyle for AFib with RVR placed on Eliquis. Patient received hemodialysis by Dr. Nemo vizcaino. Being discharged home back to hospice per patient's daughter's wishes. He will continue dialysis. He will receive vancomycin for two weeks during days of dialysis. General condition poor but satisfactory at the time of discharge Consults/Reason for consult Nephrology Cardiology Radiology Operations or Procedures Removal of infected tunneled dialysis cath and insertion of new dialysis cath Condition at Discharge: Fair Final Diagnosis/Problems List 1. Acute on chronic hypoxic respiratory failure secondary to acute COPD exacerbation: Pulmonary consult by Dr. Ferreira appreciated 2. Acute COPD exacerbation 3. AFib with RVR CURRENTLY IMPROVED: Cardiology consult by Dr. Lyle appreciated, on Eliquis 4. MRSA bacteremia, treated with vancomycin, repeat blood cultures neg 5. Suspected pneumonia : Continue vancomycin 6. End-stage renal disease on hemodialysis, Nephrology consult for dialysis 7. Chronic congestive heart failure with diastolic dysfunction Patient To get New dialysis cath as the blood cultures have been negative 8. Infected left tunneled dialysis cath removed on 01/15/2025, status post new tunneled dialysis cath right upper chest on 01-19-25, Will inform Nephrology for dialysis Discharge Disposition: Hospice - Home Discharge Instruct/Medications Diet: Renal Activity: Light activity Follow Up/Referral: Continued All your previous home medications Follow up with your primary Dr and cook tortilla for dialysis Follow up with the Cardiology Dr. Lyle in two weeks Medications: Vancomycin 1 g IV during dialysis days for two weeks 36 (Time taken for discharge summary 36 minutes) Discharge Statement: "Patient was advised to return to the ER or call 911 if any headaches, dizziness, shortness of breath, chest pain, abdominal pain, bleeding, fevers, or worsening of medical condition. Patient was counseled about treatment plan, medications, possible side effects, patientverbalized understanding. All questions were answered to the best of my ability. This discharge took greater then 30 minutes in planning, reviewing documentation, counseling the patient, and discussing with other team members." ASSESSMENT ASSESSMENT Hospital Course Improved marginally Assessment 1. Acute on chronic hypoxic respiratory failure secondary to acute COPD exacerbation: Pulmonary consult by Dr. Ferreira appreciated 2. Acute COPD exacerbation 3. AFib with RVR CURRENTLY IMPROVED: Cardiology consult by Dr. Lyle appreciated, on Eliquis 4. MRSA bacteremia, treated with vancomycin, repeat blood cultures neg 5. Suspected pneumonia : Continue vancomycin 6. End-stage renal disease on hemodialysis, Nephrology consult for dialysis 7. Chronic congestive heart failure with diastolic dysfunction Patient To get New dialysis cath as the blood cultures have been negative 8. Infected left tunneled dialysis cath removed on 01/15/2025, status post new tunneled dialysis cath right upper chest on 01-19-25, Will inform Nephrology for dialysis Date of Service: January 23, 2025 Billing Provider: JESSENIA VAZQUEZ MD Common Visit Codes: 43641-KVX/OBS DISCH DAY >30min JESSENIA VAZQUEZ MD January 23, 2025 11:07
--- NOTE | 2025-01-23 12:26 | DVHPN2 ---
Progress Note Date Seen: January 23, 2025 Resident Creating Document: BEATRIZ ROCK RESIDENT Medical Necessity Reason Pt with a Central, PICC or Fol: No Subjective Review of Systems Mr. Muñoz is a 79-year-old male with PMHx AFib on Eliquis, ESRD on hemodialysis with [place] [facility] Wednesday/Wednesday/Wednesday for the past 2 years, COPD not on home oxygen, history of stroke twice last 09/2023, denies diabetes mellitus, hypertension who presented to the ER with a chief complaint of shortness of breaths and generalized weakness. Patient is A&O x3, reports experiencing flu-like symptoms including fever, chills, generalized weakness and body ache for the past 3 weeks. He has been experiencing worsening shortness of breaths especially on exertion associated with sore throat and congestion, can not cough up the phlegm. Patient denies orthopnea, PND, chest pain, palpitations. Last hemodialysis session was on Wednesday per patient Patient reports making urine PMHx: AFib on Eliquis, ESRD on hemodialysis with [facility] Wednesday/Wednesday/Wednesday for the past 2 years, COPD not on home oxygen, history of stroke twice last 09/2023, denies diabetes mellitus, hypertension Social history: Lives alone, does not have a caregiver, quit smoking more than 15 years back, previously heavy smoker, denies drinking or illicit drug use Home medications: Eliquis 2.5 mg b.i.d., aspirin, atorvastatin, metoprolol tartrate 50 mg, pantoprazole, sevelamer TID 01/15 - Patient seen and examined the bedside. Left subclavian tunneled cath draining purulent material, IR consulted for removal. 01/16 - patient is seen and examined at the bedside. Weaned of oxygen from 3 L to 1 L, Saturating 98 on 1 L oxygen. 2 L HD yesterday around 5pm. Tunneled catheter removed by IR. 01/17 - seen and examined at the bedside. Currently on 2 L oxygen supplementation. Blood culture 01/11 and 01/13 showing MRSA, 01/15/ pending 01/22 - patient seen and examined at bedside. Reports feeling better. Hemodialysis scheduled for tomorrow. 01/23-patient is seen and examined at the bedside. Hemodialysis pending. Other Systems: Patient seen and examined by myself today in follow-up with the medicine resident, I agree with the assessment and plan Patient examined hemodialysis, blood pressure stable Objective vital signs Vital Sign Date Time Temp Pulse Resp B/P (MAP) Pulse Ox O2 Delivery O2 Flow Rate FiO2 01/23/25 11:06 88 20 100 01/23/25 10:58 Nasal Cannula 2.0 01/23/25 10:58 28 01/23/25 09:04 160/86 01/23/25 09:00 97.8 97.8 Total Intake and Output 01/22/25 01/22/25 01/23/25 15:00 23:00 07:00 Intake Total 320 ml 600 ml 240 ml Balance 320 ml 600 ml 240 ml medications Current Medications Medications Dose Ordered Sig/Carmen Route Start Time Stop Time Status Last Admin Dose Admin Multivit/Ca Carb/ B Cmplx/FA/Prenat 1 tab DAILY PO 01/12/25 10:00 01/23/25 09:04 1 TAB Sevelamer HCl 1,200 mg TIDWM PO 01/12/25 08:00 01/23/25 11:46 1,200 MG Famotidine 20 mg DAILY IV 01/12/25 10:00 01/23/25 09:04 20 MG Carvedilol 3.125 mg Q12HR PO 01/12/25 10:00 01/23/25 09:04 3.125 MG Atorvastatin Calcium 10 mg HS PO 01/12/25 22:00 01/22/25 20:27 10 MG Amiodarone HCl 200 mg DAILY PO 01/12/25 10:00 01/23/25 09:04 200 MG Apixaban 2.5 mg BID PO 01/12/25 10:00 01/23/25 09:04 2.5 MG Sodium Chloride 10 ml Q8HR IV 01/12/25 06:00 01/23/25 06:00 10 ML Ondansetron HCl 4 mg Q4HP PRN IV 01/12/25 03:15 Docusate Sodium 100 mg BIDPRN PRN PO 01/12/25 03:15 Acetaminophen 650 mg Q6HP PRN PO 01/12/25 03:15 01/12/25 17:45 650 MG Nitroglycerin 0.4 mg Q5MINP PRN SL 01/12/25 03:15 Ipratropium [place] 0.5 mg Q4HR NEB 01/12/25 14:00 01/23/25 10:58 0.5 MG Levalbuterol HCl 1.25 mg Q4HR NEB 01/12/25 14:00 01/23/25 10:57 1.25 MG Vancomycin HCl 0 ml @ 0 mls/hr UD IV 01/12/25 20:00 Hydralazine HCl 10 mg Q4HP PRN IV 01/17/25 12:00 01/22/25 20:28 10 MG Examination Obese male patient lying in the bed General: Obese, afebrile,, mucosae are moist Cardiovascular: Regular S1 and S2. No murmurs, gallops or rubs. No JVD elevation. Resolving bilateral pedal edema pitting. Right tunneled catheter seen. Respiratory: Decreased bilateral air entry on nasal cannula supplementation Abdomen: Soft, nontender, nondistended, normoactive bowel sounds, no rebound tenderness, no organomegaly, no masses Genitourinary: Deferred MSK/skin: Mobilizes 4 limbs. Skin is dry and warm Psych/Mental Status: A/Ox laboratory and microbiology Laboratory Tests 01/23/25 05:46 Test 01/23/25 05:46 Range/Units Serum Glucose 108 H 74-106 mg/dL Microbiology Date/Time Source Procedure Growth Status 01/17/25 13:02 Blood Blood Culture - Final NO GROWTH AFTER 5 DAYS OF INCUBATION. Complete 01/16/25 12:06 Catheter Tip Other Aerobic Culture - Final Methicillin Resistant S.aureus Complete Labs and/or images reviewed: Labs reviewed by me, Image(s) reviewed by me Problem List/Assessment/Plan Problem List/Assessment/Plan ESRD on hemodialysis Wednesday/Wednesday/Wednesday Central line associated bloodstream infection MRSA bacteremia Macrocytic Anemia, likely secondary to ESRD Acute hypoxic respiratory failure Acute COPD exacerbation secondary to probable pneumonia Probable sepsis secondary to pneumonia Paroxysmal Atrial fibrillation-on Eliquis-currently sinus Lactic acidosis History of CVA History of diabetes-patient denies Hypertension GERD Plan: Tunneled catheter placed by IR 01/18. Hemodialysis recontinued starting 01/19, 01/21. Hemodialysis pending later today. Previously patient underwent hemodialysis 01/12, and 01/15. Blood cultures 01/13, 01/15, 01/16, 01/17 negative. Underwent left heart catheter removal 01/16. Catheter tip groin MRSA. Patient will require IV vancomycin 2 weeks with a HD after DC Continue IV antibiotics. Continue sevelamer t.i.d. We will continue to follow up Plan discussed with patient in which all questions have been answered Case discussed with Dr. Chow Plan discussed with: Patient Dietary Evaluation Review Comments: 1) Continue liberalizing diet to renal standard diet 2) Consider Nepro Carb steady 240ml daily if PO intake <50% 3) Continue current POC Expected Outcomes/Goals: to meet at least 75% estimated needs fu 3-5 days BEATRIZ ROCK January 23, 2025 12:26 TISH CHOW MD January 23, 2025 18:42
[2025-01-23] MEDS ORDERED: VANCOMYCIN 500mg/100mL 100 ML IV ONE (17:30)
--- NOTE | 2025-01-23 19:38 | DVHPN2 ---
Progress Note - Dictate Date Seen: January 23, 2025 Medical Necessity Reason Pt with a Central, PICC or Fol: No vital signs Vital Sign Date Time Temp Pulse Resp B/P (MAP) Pulse Ox O2 Delivery O2 Flow Rate FiO2 01/23/25 17:00 96.3 82 18 164/91 (115) 99 96.3 01/23/25 13:49 Nasal Cannula 2.0 01/23/25 13:49 28 Total Intake and Output 01/22/25 01/22/25 01/23/25 15:00 23:00 07:00 Intake Total 320 ml 600 ml 240 ml Balance 320 ml 600 ml 240 ml medications Current Medications Medications Dose Ordered Sig/Carmen Route Start Time Stop Time Status Last Admin Dose Admin Multivit/Ca Carb/ B Cmplx/FA/Prenat 1 tab DAILY PO 01/12/25 10:00 01/23/25 09:04 1 TAB Sevelamer HCl 1,200 mg TIDWM PO 01/12/25 08:00 01/23/25 17:36 1,200 MG Famotidine 20 mg DAILY IV 01/12/25 10:00 01/23/25 09:04 20 MG Carvedilol 3.125 mg Q12HR PO 01/12/25 10:00 01/23/25 09:04 3.125 MG Atorvastatin Calcium 10 mg HS PO 01/12/25 22:00 01/22/25 20:27 10 MG Amiodarone HCl 200 mg DAILY PO 01/12/25 10:00 01/23/25 09:04 200 MG Apixaban 2.5 mg BID PO 01/12/25 10:00 01/23/25 09:04 2.5 MG Sodium Chloride 10 ml Q8HR IV 01/12/25 06:00 01/23/25 14:00 10 ML Ondansetron HCl 4 mg Q4HP PRN IV 01/12/25 03:15 Docusate Sodium 100 mg BIDPRN PRN PO 01/12/25 03:15 Acetaminophen 650 mg Q6HP PRN PO 01/12/25 03:15 01/12/25 17:45 650 MG Nitroglycerin 0.4 mg Q5MINP PRN SL 01/12/25 03:15 Ipratropium [place] 0.5 mg Q4HR NEB 01/12/25 14:00 01/23/25 13:49 0.5 MG Levalbuterol HCl 1.25 mg Q4HR NEB 01/12/25 14:00 01/23/25 13:49 1.25 MG Vancomycin HCl 0 ml @ 0 mls/hr UD IV 01/12/25 20:00 Hydralazine HCl 10 mg Q4HP PRN IV 01/17/25 12:00 01/22/25 20:28 10 MG laboratory and microbiology Laboratory Tests 01/23/25 05:46 Test 01/23/25 05:46 Range/Units Serum Glucose 108 H 74-106 mg/dL Assessment/Plan Impression: Acute hypoxic respiratory failure Dependence on supplemental oxygen Atrial fibrillation with rapid ventricular response End-stage renal disease, on hemodialysis Congestive heart failure Bacteremia with GPC in clusters Obesity Patient seen and examined Events: Low oxygen requirements On room air No distress Labs and imaging reviewed Plan: Supplemental oxygen PRN Titrate to keep O2 sats above 92%. Incentive spirometry Continue bronchodilators Continue antibiotics F/u cultures and ID Monitor renal function HD as per nephrology Management deferred Monitor electrolytes Supplement as necessary Monitor ins and outs Monitor hemoglobin Pepcid for GI prophylaxis DVT prophylaxis Dietary Evaluation Review Comments: 1) Continue liberalizing diet to renal standard diet 2) Consider Nepro Carb steady 240ml daily if PO intake <50% 3) Continue current POC Expected Outcomes/Goals: to meet at least 75% estimated needs fu 3-5 days Plan discussed with: Patient ERWIN ROCK MD January 23, 2025 19:38
--- NOTE | 2025-01-23 19:55 | DVHPN2 ---
Progress Note - Dictate Date Seen: January 23, 2025 Medical Necessity Reason Pt with a Central, PICC or Fol: No Subjective Patient was seen and evaluated in follow up. Patient is on 2 LPM NC. Patient is awaiting to receive HD today. HGB 9.7, HCT 31.4, BUN 38, [place] 6.77. Telemetry reviewed. vital signs Vital Sign Date Time Temp Pulse Resp B/P (MAP) Pulse Ox O2 Delivery O2 Flow Rate FiO2 01/23/25 17:00 96.3 82 18 164/91 (115) 99 96.3 01/23/25 13:49 Nasal Cannula 2.0 01/23/25 13:49 28 Total Intake and Output 01/22/25 01/22/25 01/23/25 15:00 23:00 07:00 Intake Total 320 ml 600 ml 240 ml Balance 320 ml 600 ml 240 ml medications Current Medications Medications Dose Ordered Sig/Carmen Route Start Time Stop Time Status Last Admin Dose Admin Multivit/Ca Carb/ B Cmplx/FA/Prenat 1 tab DAILY PO 01/12/25 10:00 01/23/25 09:04 1 TAB Sevelamer HCl 1,200 mg TIDWM PO 01/12/25 08:00 01/23/25 17:36 1,200 MG Famotidine 20 mg DAILY IV 01/12/25 10:00 01/23/25 09:04 20 MG Carvedilol 3.125 mg Q12HR PO 01/12/25 10:00 01/23/25 09:04 3.125 MG Atorvastatin Calcium 10 mg HS PO 01/12/25 22:00 01/22/25 20:27 10 MG Amiodarone HCl 200 mg DAILY PO 01/12/25 10:00 01/23/25 09:04 200 MG Apixaban 2.5 mg BID PO 01/12/25 10:00 01/23/25 09:04 2.5 MG Sodium Chloride 10 ml Q8HR IV 01/12/25 06:00 01/23/25 14:00 10 ML Ondansetron HCl 4 mg Q4HP PRN IV 01/12/25 03:15 Docusate Sodium 100 mg BIDPRN PRN PO 01/12/25 03:15 Acetaminophen 650 mg Q6HP PRN PO 01/12/25 03:15 01/12/25 17:45 650 MG Nitroglycerin 0.4 mg Q5MINP PRN SL 01/12/25 03:15 Ipratropium [place] 0.5 mg Q4HR NEB 01/12/25 14:00 01/23/25 13:49 0.5 MG Levalbuterol HCl 1.25 mg Q4HR NEB 01/12/25 14:00 01/23/25 13:49 1.25 MG Vancomycin HCl 0 ml @ 0 mls/hr UD IV 01/12/25 20:00 Hydralazine HCl 10 mg Q4HP PRN IV 01/17/25 12:00 01/22/25 20:28 10 MG objective GENERAL: Alert and oriented x 3. No acute distress.. EYES: PERRL, EOMI. Anicteric. HENT: Moist mucous membranes. LUNGS: Decreased breath sounds. CARDIOVASCULAR: Regular rate and rhythm. ABDOMEN: Soft, nontender and nondistended. EXTREMITIES: No edema. NEUROLOGIC: No focal neurological deficits. SKIN: Warm, dry. laboratory and microbiology Laboratory Tests 01/23/25 05:46 Test 01/23/25 05:46 Range/Units Serum Glucose 108 H 74-106 mg/dL Problem List Atrial fibrillation with RVR. Sepsis, unspecified organism. End-stage renal disease on hemodialysis. Generalized weakness. Assessment/Plan Continued all current supportive medical care. Morphine and [place] for pain management. Amiodarone. Eliquis. Lipitor. Coreg. IV antibiotics as ordered. IV Hydralazine for SBP > 160. Additional plan as per the hospital course. Dietary Evaluation Review Comments: 1) Continue liberalizing diet to renal standard diet 2) Consider Nepro Carb steady 240ml daily if PO intake <50% 3) Continue current POC Expected Outcomes/Goals: to meet at least 75% estimated needs fu 3-5 days Plan discussed with: Patient ANASTASIYA KOLB MD January 23, 2025 19:55
[2025-01-23] MEDS: EPOETIN ALFA-EPBX 10,000 UNIT/1ML VIAL SC ONE (21:14)
[2025-01-23] MEDS: VANCOMYCIN 500mg/100mL 100 ML IV ONE (21:16)
--- NOTE | 2025-01-23 22:32 | DVHPN2 ---
Consult Progress Note Date Seen: January 21, 2025 Subjective Patient reports: Feels better (has a new catheter line in place and is tolerating dialysis with a new line) Objective vital signs Vital Sign Date Time Temp Pulse Resp B/P (MAP) Pulse Ox O2 Delivery O2 Flow Rate FiO2 01/23/25 21:14 101 158/96 01/23/25 21:00 97.8 18 99 97.8 01/23/25 20:00 Nasal Cannula* 2 28 Total Intake and Output 01/22/25 01/22/25 01/23/25 15:00 23:00 07:00 Intake Total 320 ml 600 ml 240 ml Balance 320 ml 600 ml 240 ml medications Current Medications Medications Dose Ordered Sig/Carmen Route Start Time Stop Time Status Last Admin Dose Admin Multivit/Ca Carb/ B Cmplx/FA/Prenat 1 tab DAILY PO 01/12/25 10:00 01/23/25 09:04 1 TAB Sevelamer HCl 1,200 mg TIDWM PO 01/12/25 08:00 01/23/25 17:36 1,200 MG Famotidine 20 mg DAILY IV 01/12/25 10:00 01/23/25 09:04 20 MG Carvedilol 3.125 mg Q12HR PO 01/12/25 10:00 01/23/25 21:14 3.125 MG Atorvastatin Calcium 10 mg HS PO 01/12/25 22:00 01/23/25 21:16 10 MG Amiodarone HCl 200 mg DAILY PO 01/12/25 10:00 01/23/25 09:04 200 MG Apixaban 2.5 mg BID PO 01/12/25 10:00 01/23/25 21:15 2.5 MG Sodium Chloride 10 ml Q8HR IV 01/12/25 06:00 01/23/25 21:14 10 ML Ondansetron HCl 4 mg Q4HP PRN IV 01/12/25 03:15 Docusate Sodium 100 mg BIDPRN PRN PO 01/12/25 03:15 Acetaminophen 650 mg Q6HP PRN PO 01/12/25 03:15 01/12/25 17:45 650 MG Nitroglycerin 0.4 mg Q5MINP PRN SL 01/12/25 03:15 Ipratropium [place] 0.5 mg Q4HR NEB 01/12/25 14:00 01/23/25 21:41 0.5 MG Levalbuterol HCl 1.25 mg Q4HR NEB 01/12/25 14:00 01/23/25 21:40 1.25 MG Vancomycin HCl 0 ml @ 0 mls/hr UD IV 01/12/25 20:00 Hydralazine HCl 10 mg Q4HP PRN IV 01/17/25 12:00 01/22/25 20:28 10 MG Physical Exam: General: NAD Neck: Supple. No masses. HEENT: PERRL. Normal lids and conjunctiva. Moist mucous membranes. Oropharynx without lesions, exudates or excessive erythema. Normal appearance of the external aspects of the nose and ears. Heart: Regular rhythm, normal rate. No murmur. No lower extremity edema. Lungs: Normal respiratory effort. Clear to auscultation bilaterally. No wheezes. No crackles. Abdomen: Soft. Non-tender. Non-distended. No masses or abdominal hernia. Msk: No digital cyanosis. Normal strength and tone in all 4 limbs. Skin: Warm and dry, no rashes. Tenderness at left chest wall dialysis catheter site. Neuro: Alert. No facial droop or slurred speech. Extra-ocular movements intact. Sensation intact to soft touch in all 4 limbs. Chronic left/right-sided deficits. Psych: Appropriate mood. Full affect. Oriented to person, place, time, and situation. laboratory and microbiology Laboratory Tests 01/23/25 05:46 Test 01/23/25 05:46 Range/Units Serum Glucose 108 H 74-106 mg/dL Problem List/Assessment/Plan Problems(with codes): (1) Nausea (2) Metabolic encephalopathy (3) ESRD (end stage renal disease) on dialysis (4) MRSA (methicillin resistant Staphylococcus aureus) septicemia (5) Altered mental status (6) Weakness (7) Syncope Problem List/Assessment/Plan ASSESSMENT AND PLAN: ID Problem List: - Catheter-associated MRSA bacteremia - Severe sepsis - End-stage renal disease on hemodialysis - History of stroke with left-sided deficits (also noted as right-sided deficits in parts of transcript; clarify later if needed) COPD - Diabetes mellitus - Hypertension - Congestive heart failure Assessment: Mr. 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 On admission, laboratory findings were significant for leukocytosis (WBC 15.1), Hct 10.8, platelets 207, sodium 139, BUN 27, creatinine 4.64, glucose 101, and lactic acid 2.4. Physical examination notes obesity and left chest wall dialysis catheter site tenderness. The patient developed hypotension (BP decreased from 174/94 to 98/54) and tachycardia (HR 121 improved to 78 post-fluid bolus), as well as hypoxemia (SpO2 79% on 6L NC) with tachypnea (RR 32). Blood cultures returned positive for MRSA in 4/4 bottles (drawn 01/11 and 01/12); subsequent cultures after catheter removal have been negative for >72 hours as of 01/13. Chest imaging notes removal of the right internal jugular central line, placement of hemodialysis catheter in the left chest wall with tip in distal SVC, and mildly prominent bronchovascular markings left perihilar lobe. No acute/clear evidence of pulmonary infiltrate. Echocardiogram was limited by body habitus but showed aortic stenosis (valve area 1.4 cm), dyskinesis of interventricular septum, mild LVH, mild left ventricular diastolic dysfunction, and mildly dilated right-sided chambers. 01/15: patients blood cultures continue to be negative , catheter cultures are pending 01/16:catheter cultures are are showing staph aureus 01/17: improved signs of sepsis and bacteremia is clearing 01/18: tolerating dialysis 01/19: patients vancomycin troths are therapeutic 01/20: patients resumes dialysis on Sunday 01/21: patient is awaiting a ANGEL procedure evaluation by cardiology to determine if patient will require 4 or 6 weeks of IV vancomycin Plan: - recommend ANGEL at this time to rule out worsening potential endocarditis - once blood cultures are negative for 72 hours can replace the dialysis catheter line - patient will need vancomycin as outpatient for a minimum of 4-6 weeks -Continue intravenous vancomycin; patient appears to be responding well - Catheter removal has been performed; plan to replace dialysis line after ?72 hours of negative blood cultures - Once negative cultures maintained for at least 72 hours, initiate a 46 week course of IV vancomycin - Transesophageal echocardiogram (ANGEL) is planned to rule out endocarditis, as transthoracic study was inconclusive and suspicion remains elevated - Monitor daily blood cultures until negative clearance confirmed - Monitor for clinical stability and resolution of sepsis - Dialysis to continue per // schedule; ensure line access as above - No evidence of pulmonary infection or viral etiologies (Flu A, Flu B, COVID-19 all negative) - Supportive care including oxygen and fluid management as needed Isolation Precautions: Standard Plan discussed with: Other Dietary Evaluation Review Comments: 1) Continue liberalizing diet to renal standard diet 2) Consider Nepro Carb steady 240ml daily if PO intake <50% 3) Continue current POC Expected Outcomes/Goals: to meet at least 75% estimated needs fu 3-5 days RG STEVE MD January 23, 2025 22:32
--- NOTE | 2025-01-23 22:33 | DVHPN2 ---
Consult Progress Note Date Seen: January 22, 2025 Subjective Patient reports: Other (teri is not a canidate for ANGEL at this time would be high risk , has right sided deficits chronically and right sided new dialysis catheter and is recieving vancomycin throguh it after dialysis ) Objective vital signs Vital Sign Date Time Temp Pulse Resp B/P (MAP) Pulse Ox O2 Delivery O2 Flow Rate FiO2 01/23/25 21:14 101 158/96 01/23/25 21:00 97.8 18 99 97.8 01/23/25 20:00 Nasal Cannula* 2 28 Total Intake and Output 01/22/25 01/22/25 01/23/25 15:00 23:00 07:00 Intake Total 320 ml 600 ml 240 ml Balance 320 ml 600 ml 240 ml medications Current Medications Medications Dose Ordered Sig/Carmen Route Start Time Stop Time Status Last Admin Dose Admin Multivit/Ca Carb/ B Cmplx/FA/Prenat 1 tab DAILY PO 01/12/25 10:00 01/23/25 09:04 1 TAB Sevelamer HCl 1,200 mg TIDWM PO 01/12/25 08:00 01/23/25 17:36 1,200 MG Famotidine 20 mg DAILY IV 01/12/25 10:00 01/23/25 09:04 20 MG Carvedilol 3.125 mg Q12HR PO 01/12/25 10:00 01/23/25 21:14 3.125 MG Atorvastatin Calcium 10 mg HS PO 01/12/25 22:00 01/23/25 21:16 10 MG Amiodarone HCl 200 mg DAILY PO 01/12/25 10:00 01/23/25 09:04 200 MG Apixaban 2.5 mg BID PO 01/12/25 10:00 01/23/25 21:15 2.5 MG Sodium Chloride 10 ml Q8HR IV 01/12/25 06:00 01/23/25 21:14 10 ML Ondansetron HCl 4 mg Q4HP PRN IV 01/12/25 03:15 Docusate Sodium 100 mg BIDPRN PRN PO 01/12/25 03:15 Acetaminophen 650 mg Q6HP PRN PO 01/12/25 03:15 01/12/25 17:45 650 MG Nitroglycerin 0.4 mg Q5MINP PRN SL 01/12/25 03:15 Ipratropium [place] 0.5 mg Q4HR NEB 01/12/25 14:00 01/23/25 21:41 0.5 MG Levalbuterol HCl 1.25 mg Q4HR NEB 01/12/25 14:00 01/23/25 21:40 1.25 MG Vancomycin HCl 0 ml @ 0 mls/hr UD IV 01/12/25 20:00 Hydralazine HCl 10 mg Q4HP PRN IV 01/17/25 12:00 01/22/25 20:28 10 MG Physical Exam: General: NAD Neck: Supple. No masses. HEENT: PERRL. Normal lids and conjunctiva. Moist mucous membranes. Oropharynx without lesions, exudates or excessive erythema. Normal appearance of the external aspects of the nose and ears. Heart: Regular rhythm, normal rate. No murmur. No lower extremity edema. Lungs: Normal respiratory effort. Clear to auscultation bilaterally. No wheezes. No crackles. Abdomen: Soft. Non-tender. Non-distended. No masses or abdominal hernia. Msk: No digital cyanosis. Normal strength and tone in all 4 limbs. Skin: Warm and dry, no rashes. Tenderness at left chest wall dialysis catheter site. Neuro: Alert. No facial droop or slurred speech. Extra-ocular movements intact. Sensation intact to soft touch in all 4 limbs. Chronic left/right-sided deficits. Psych: Appropriate mood. Full affect. Oriented to person, place, time, and situation. laboratory and microbiology Laboratory Tests 01/23/25 05:46 Test 01/23/25 05:46 Range/Units Serum Glucose 108 H 74-106 mg/dL Problem List/Assessment/Plan Problems(with codes): (1) Nausea (2) Metabolic encephalopathy (3) ESRD (end stage renal disease) on dialysis (4) MRSA (methicillin resistant Staphylococcus aureus) septicemia (5) Altered mental status (6) Weakness (7) Syncope Problem List/Assessment/Plan ASSESSMENT AND PLAN: ID Problem List: - Catheter-associated MRSA bacteremia - Severe sepsis - End-stage renal disease on hemodialysis - History of stroke with left-sided deficits (also noted as right-sided deficits in parts of transcript; clarify later if needed) COPD - Diabetes mellitus - Hypertension - Congestive heart failure Assessment: Mr. 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 On admission, laboratory findings were significant for leukocytosis (WBC 15.1), Hct 10.8, platelets 207, sodium 139, BUN 27, creatinine 4.64, glucose 101, and lactic acid 2.4. Physical examination notes obesity and left chest wall dialysis catheter site tenderness. The patient developed hypotension (BP decreased from 174/94 to 98/54) and tachycardia (HR 121 improved to 78 post-fluid bolus), as well as hypoxemia (SpO2 79% on 6L NC) with tachypnea (RR 32). Blood cultures returned positive for MRSA in 4/4 bottles (drawn 01/11 and 01/12); subsequent cultures after catheter removal have been negative for >72 hours as of 01/13. Chest imaging notes removal of the right internal jugular central line, placement of hemodialysis catheter in the left chest wall with tip in distal SVC, and mildly prominent bronchovascular markings left perihilar lobe. No acute/clear evidence of pulmonary infiltrate. Echocardiogram was limited by body habitus but showed aortic stenosis (valve area 1.4 cm), dyskinesis of interventricular septum, mild LVH, mild left ventricular diastolic dysfunction, and mildly dilated right-sided chambers. 01/15: patients blood cultures continue to be negative , catheter cultures are pending 01/16:catheter cultures are are showing staph aureus 01/17: improved signs of sepsis and bacteremia is clearing 15: tolerating dialysis 16: patients vancomycin troths are therapeutic 01/20: patients resumes dialysis on Sunday 01/21: patient is awaiting a ANGEL procedure evaluation by cardiology to determine if patient will require 4 or 6 weeks of IV vancomycin 01/22: since patient is not a candidate for TTE would recommend 6 weeks of empirically treatment for presumed endocarditis Plan: - treatment for presumed endocarditis is 500mg MWF for 6 weeks with dialysis - follow up with infectious disease clinic in 4-6 weeks - once blood cultures are negative for 72 hours can replace the dialysis catheter line - patient will need vancomycin as outpatient for a minimum of 4-6 weeks -Continue intravenous vancomycin; patient appears to be responding well - Catheter removal has been performed; plan to replace dialysis line after ?72 hours of negative blood cultures - Once negative cultures maintained for at least 72 hours, initiate a 46 week course of IV vancomycin - Transesophageal echocardiogram (ANGEL) is planned to rule out endocarditis, as transthoracic study was inconclusive and suspicion remains elevated - Monitor daily blood cultures until negative clearance confirmed - Monitor for clinical stability and resolution of sepsis - Dialysis to continue per // schedule; ensure line access as above - No evidence of pulmonary infection or viral etiologies (Flu A, Flu B, COVID-19 all negative) - Supportive care including oxygen and fluid management as needed Isolation Precautions: Standard Plan discussed with: Other Dietary Evaluation Review Comments: 1) Continue liberalizing diet to renal standard diet 2) Consider Nepro Carb steady 240ml daily if PO intake <50% 3) Continue current POC Expected Outcomes/Goals: to meet at least 75% estimated needs fu 3-5 days RG STEVE MD January 23, 2025 22:33
--- NOTE | 2025-01-23 22:33 | DVHPN2 ---
Consult Progress Note Date Seen: January 23, 2025 Subjective Patient reports: Other (tolerating antibiotic therapy and dialysis ) Objective vital signs Vital Sign Date Time Temp Pulse Resp B/P (MAP) Pulse Ox O2 Delivery O2 Flow Rate FiO2 01/23/25 21:14 101 158/96 01/23/25 21:00 97.8 18 99 97.8 01/23/25 20:00 Nasal Cannula* 2 28 Total Intake and Output 01/22/25 01/22/25 01/23/25 15:00 23:00 07:00 Intake Total 320 ml 600 ml 240 ml Balance 320 ml 600 ml 240 ml medications Current Medications Medications Dose Ordered Sig/Carmen Route Start Time Stop Time Status Last Admin Dose Admin Multivit/Ca Carb/ B Cmplx/FA/Prenat 1 tab DAILY PO 01/12/25 10:00 01/23/25 09:04 1 TAB Sevelamer HCl 1,200 mg TIDWM PO 01/12/25 08:00 01/23/25 17:36 1,200 MG Famotidine 20 mg DAILY IV 01/12/25 10:00 01/23/25 09:04 20 MG Carvedilol 3.125 mg Q12HR PO 01/12/25 10:00 01/23/25 21:14 3.125 MG Atorvastatin Calcium 10 mg HS PO 01/12/25 22:00 01/23/25 21:16 10 MG Amiodarone HCl 200 mg DAILY PO 01/12/25 10:00 01/23/25 09:04 200 MG Apixaban 2.5 mg BID PO 01/12/25 10:00 01/23/25 21:15 2.5 MG Sodium Chloride 10 ml Q8HR IV 01/12/25 06:00 01/23/25 21:14 10 ML Ondansetron HCl 4 mg Q4HP PRN IV 01/12/25 03:15 Docusate Sodium 100 mg BIDPRN PRN PO 01/12/25 03:15 Acetaminophen 650 mg Q6HP PRN PO 01/12/25 03:15 01/12/25 17:45 650 MG Nitroglycerin 0.4 mg Q5MINP PRN SL 01/12/25 03:15 Ipratropium [place] 0.5 mg Q4HR NEB 01/12/25 14:00 01/23/25 21:41 0.5 MG Levalbuterol HCl 1.25 mg Q4HR NEB 01/12/25 14:00 01/23/25 21:40 1.25 MG Vancomycin HCl 0 ml @ 0 mls/hr UD IV 01/12/25 20:00 Hydralazine HCl 10 mg Q4HP PRN IV 01/17/25 12:00 01/22/25 20:28 10 MG laboratory and microbiology Laboratory Tests 01/23/25 05:46 Test 01/23/25 05:46 Range/Units Serum Glucose 108 H 74-106 mg/dL Problem List/Assessment/Plan Problems(with codes): (1) Nausea (2) Metabolic encephalopathy (3) ESRD (end stage renal disease) on dialysis (4) MRSA (methicillin resistant Staphylococcus aureus) septicemia (5) Altered mental status (6) Weakness (7) Syncope Problem List/Assessment/Plan ASSESSMENT AND PLAN: ID Problem List: - Catheter-associated MRSA bacteremia - Severe sepsis - End-stage renal disease on hemodialysis - History of stroke with left-sided deficits (also noted as right-sided deficits in parts of transcript; clarify later if needed) COPD - Diabetes mellitus - Hypertension - Congestive heart failure Assessment: Mr. 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 On admission, laboratory findings were significant for leukocytosis (WBC 15.1), Hct 10.8, platelets 207, sodium 139, BUN 27, creatinine 4.64, glucose 101, and lactic acid 2.4. Physical examination notes obesity and left chest wall dialysis catheter site tenderness. The patient developed hypotension (BP decreased from 174/94 to 98/54) and tachycardia (HR 121 improved to 78 post-fluid bolus), as well as hypoxemia (SpO2 79% on 6L NC) with tachypnea (RR 32). Blood cultures returned positive for MRSA in 4/4 bottles (drawn 01/11 and 01/12); subsequent cultures after catheter removal have been negative for >72 hours as of 01/13. Chest imaging notes removal of the right internal jugular central line, placement of hemodialysis catheter in the left chest wall with tip in distal SVC, and mildly prominent bronchovascular markings left perihilar lobe. No acute/clear evidence of pulmonary infiltrate. Echocardiogram was limited by body habitus but showed aortic stenosis (valve area 1.4 cm), dyskinesis of interventricular septum, mild LVH, mild left ventricular diastolic dysfunction, and mildly dilated right-sided chambers. 01/15: patients blood cultures continue to be negative , catheter cultures are pending 01/16:catheter cultures are are showing staph aureus 01/17: improved signs of sepsis and bacteremia is clearing 01/18: tolerating dialysis 01/19: patients vancomycin troths are therapeutic 01/20: patients resumes dialysis on Sunday 01/21: patient is awaiting a ANGEL procedure evaluation by cardiology to determine if patient will require 4 or 6 weeks of IV vancomycin 01/22: since patient is not a candidate for TTE would recommend 6 weeks of empirically treatment for presumed endocarditis 01/23: awaiting placement at dialysis center Plan: - treatment for presumed endocarditis is 500mg MWF for 6 weeks with dialysis - follow up with infectious disease clinic in 4-6 weeks - once blood cultures are negative for 72 hours can replace the dialysis catheter line - patient will need vancomycin as outpatient for a minimum of 4-6 weeks -Continue intravenous vancomycin; patient appears to be responding well - Catheter removal has been performed; plan to replace dialysis line after ?72 hours of negative blood cultures - Once negative cultures maintained for at least 72 hours, initiate a 46 week course of IV vancomycin - Transesophageal echocardiogram (ANGEL) is planned to rule out endocarditis, as transthoracic study was inconclusive and suspicion remains elevated - Monitor daily blood cultures until negative clearance confirmed - Monitor for clinical stability and resolution of sepsis - Dialysis to continue per // schedule; ensure line access as above - No evidence of pulmonary infection or viral etiologies (Flu A, Flu B, COVID-19 all negative) - Supportive care including oxygen and fluid management as needed Isolation Precautions: Standard Plan discussed with: Other Dietary Evaluation Review Comments: 1) Continue liberalizing diet to renal standard diet 2) Consider Nepro Carb steady 240ml daily if PO intake <50% 3) Continue current POC Expected Outcomes/Goals: to meet at least 75% estimated needs fu 3-5 days RG STEVE MD January 23, 2025 22:33
[2025-01-24] VITALS (16 sets, daily range): BP systolic 118–157; BP diastolic 79–101; PULSE 89–115; RESP 17–20; TEMP 96–97.4; O2SAT 97–100
--- NOTE | 2025-01-24 09:40 | DVHPN2 ---
Reviewed: Care Plan, H&P, Labs, Medications, Previous Orders, Radiology Changes from previous H/P or p: No Changes Eyes: No Pain, No Vision change, No Conjunctivae inflammation, No Eyelid inflammation, No Other, No Redness ENT: No Ear pain, No Ear discharge, No Nose pain, No Nose discharge, No Nose congestion, No Mouth pain, No Mouth swelling, No Throat pain, No Throat swelling, No Other Cardiovascular: No Chest Pain, No Palpitations, No Orthopnea, No Paroxysmal Noc. Dyspnea, No Edema, No Lt Headedness, No Other Respiratory: No Cough, No Dry; Shortness of breath; No SOB with excertion, No Wheezing, No Hemoptysis, No Pleuritic Pain, No Sputum, No Other Gastrointestinal: No Nausea, No Vomiting, No Abdominal Pain, No Diarrhea, No Constipation, No Melena, No Hematochezia, No Other Genitourinary: No Dysuria, No Frequency, No Incontinence, No Hematuria, No Retention, No Other Musculoskeletal: No other, No neck pain, No shoulder pain, No arm pain, No back pain, No hand pain, No leg pain, No foot pain Skin: No Rash, No Lesions, No Jaundice, No Bruising, No Other Objective Vitals Vital Signs Date Time Temp Pulse Resp B/P (MAP) Pulse Ox O2 Delivery O2 Flow Rate FiO2 01/24/25 09:30 97.3 106 17 118/80 (93) 100 97.3 01/24/25 05:56 Nasal Cannula 2.0 01/24/25 05:56 28 Intake/Output Intake and Output 01/24/25 07:00 Intake Total 738 ml Balance 738 ml Intake Oral 738 ml # Voids 3 # Bowel Movements 1 Medications Current Medications Medications Dose Ordered Sig/Carmen Route Start Time Stop Time Status Last Admin Dose Admin Multivit/Ca Carb/ B Cmplx/FA/Prenat 1 tab DAILY PO 01/12/25 10:00 01/24/25 09:06 1 TAB Sevelamer HCl 1,200 mg TIDWM PO 01/12/25 08:00 01/24/25 09:05 1,200 MG Famotidine 20 mg DAILY IV 01/12/25 10:00 01/24/25 09:05 20 MG Carvedilol 3.125 mg Q12HR PO 01/12/25 10:00 01/24/25 09:06 3.125 MG Atorvastatin Calcium 10 mg HS PO 01/12/25 22:00 01/23/25 21:16 10 MG Amiodarone HCl 200 mg DAILY PO 01/12/25 10:00 01/24/25 09:06 200 MG Apixaban 2.5 mg BID PO 01/12/25 10:00 01/24/25 09:06 2.5 MG Sodium Chloride 10 ml Q8HR IV 01/12/25 06:00 01/24/25 05:10 10 ML Ondansetron HCl 4 mg Q4HP PRN IV 01/12/25 03:15 Docusate Sodium 100 mg BIDPRN PRN PO 01/12/25 03:15 Acetaminophen 650 mg Q6HP PRN PO 01/12/25 03:15 01/12/25 17:45 650 MG Nitroglycerin 0.4 mg Q5MINP PRN SL 01/12/25 03:15 Ipratropium [place] 0.5 mg Q4HR NEB 01/12/25 14:00 01/24/25 05:56 0.5 MG Levalbuterol HCl 1.25 mg Q4HR NEB 01/12/25 14:00 01/24/25 05:56 1.25 MG Vancomycin HCl 0 ml @ 0 mls/hr UD IV 01/12/25 20:00 Hydralazine HCl 10 mg Q4HP PRN IV 01/17/25 12:00 01/22/25 20:28 10 MG Laboratory Results Laboratory Tests 01/23/25 05:46 Microbiology Microbiology Date/Time Source Procedure Growth Status 01/17/25 13:02 Blood Blood Culture - Final NO GROWTH AFTER 5 DAYS OF INCUBATION. Complete 01/16/25 12:06 Catheter Tip Other Aerobic Culture - Final Methicillin Resistant S.aureus Complete Labs and/or images reviewed: Labs reviewed by me, Image(s) reviewed by me Assessment/Plan Assessment/Plan Care Transferred from Dr. Iyer to Dr. Jessenia Vazquez on 01/18/25 1. Acute on chronic hypoxic respiratory failure secondary to acute COPD exacerbation: Pulmonary consult by Dr. Ferreira appreciated 2. Acute COPD exacerbation 3. AFib with RVR CURRENTLY IMPROVED: Cardiology consult by Dr. Lyle appreciated, on Eliquis 4. MRSA bacteremia, treated with vancomycin, repeat blood cultures neg 5. Suspected pneumonia : Continue vancomycin 6. End-stage renal disease on hemodialysis, Nephrology consult for dialysis 7. Chronic congestive heart failure with diastolic dysfunction Patient To get New dialysis cath as the blood cultures have been negative 8. Infected left tunneled dialysis cath removed on 01/15/2025, status post new tunneled dialysis cath right upper chest on 01-19-25, Will inform Nephrology for dialysis Time spent 55 minutes Patient lives in [place] [facility] Board and Care Spoke with daughter Agatha on the phone (who is also RN) [phone] and advised current diagnosis management and poor prognosis Patient was discharged home on hospice on 01/23/25 Social service consult placed for arranging vancomycin during dialysis; after arrangements made by social services technician, patient will be going home Plan discussed with: Patient My Orders Orders - JESSENIA VAZQUEZ MD Procedure Category Date Status Time Discharge DISCHARGE 01/24/25 Transmitted 09:00 Date of Service: January 24, 2025 Billing Provider: JESSENIA VAZQUEZ MD Common Visit Codes: [id number] INP/OBS CARE(HIGH) JESSENIA VAZQUEZ MD January 24, 2025 09:40
--- NOTE | 2025-01-24 14:21 | DVHPN2 ---
Progress Note Date Seen: January 24, 2025 Resident Creating Document: BEATRIZ ROCK RESIDENT Medical Necessity Reason Pt with a Central, PICC or Fol: No Subjective Review of Systems Mr. Muñoz is a 79-year-old male with PMHx AFib on Eliquis, ESRD on hemodialysis with [facility] nephro Wednesday/Wednesday/Wednesday for the past 2 years, COPD not on home oxygen, history of stroke twice last 09/2023, denies diabetes mellitus, hypertension who presented to the ER with a chief complaint of shortness of breaths and generalized weakness. Patient is A&O x3, reports experiencing flu-like symptoms including fever, chills, generalized weakness and body ache for the past 3 weeks. He has been experiencing worsening shortness of breaths especially on exertion associated with sore throat and congestion, can not cough up the phlegm. Patient denies orthopnea, PND, chest pain, palpitations. Last hemodialysis session was on Wednesday per patient Patient reports making urine PMHx: AFib on Eliquis, ESRD on hemodialysis with [facility] nephro Wednesday/Wednesday/Wednesday for the past 2 years, COPD not on home oxygen, history of stroke twice last 09/2023, denies diabetes mellitus, hypertension Social history: Lives alone, does not have a caregiver, quit smoking more than 15 years back, previously heavy smoker, denies drinking or illicit drug use Home medications: Eliquis 2.5 mg b.i.d., aspirin, atorvastatin, metoprolol tartrate 50 mg, pantoprazole, sevelamer TID 01/15 - Patient seen and examined the bedside. Left subclavian tunneled cath draining purulent material, IR consulted for removal. 01/16 - patient is seen and examined at the bedside. Weaned of oxygen from 3 L to 1 L, Saturating 98 on 1 L oxygen. 2 L HD yesterday around 5pm. Tunneled catheter removed by IR. 01/17 - seen and examined at the bedside. Currently on 2 L oxygen supplementation. Blood culture 01/11 and 01/13 showing MRSA, 01/15/ pending 01/22 - patient seen and examined at bedside. Reports feeling better. Hemodialysis scheduled for tomorrow. 01/23-patient is seen and examined at the bedside. Hemodialysis pending. 01/24 patient seen and examined, underwent hemodialysis yesterday. Other Systems: Patient seen and examined by myself today in rounds with the resident, I agree with the asessment and plan Objective vital signs Vital Sign Date Time Temp Pulse Resp B/P (MAP) Pulse Ox O2 Delivery O2 Flow Rate FiO2 01/24/25 13:16 97.4 95 19 135/79 (97) 99 97.4 01/24/25 10:54 2.0 21 01/24/25 10:35 Nasal Cannula* Total Intake and Output 01/23/25 01/23/25 01/24/25 15:00 23:00 07:00 Intake Total 638 ml 100 ml Balance 638 ml 100 ml medications Current Medications Medications Dose Ordered Sig/Carmen Route Start Time Stop Time Status Last Admin Dose Admin Multivit/Ca Carb/ B Cmplx/FA/Prenat 1 tab DAILY PO 01/12/25 10:00 01/24/25 09:06 1 TAB Sevelamer HCl 1,200 mg TIDWM PO 01/12/25 08:00 01/24/25 12:24 1,200 MG Famotidine 20 mg DAILY IV 01/12/25 10:00 01/24/25 09:05 20 MG Carvedilol 3.125 mg Q12HR PO 01/12/25 10:00 01/24/25 09:06 3.125 MG Atorvastatin Calcium 10 mg HS PO 01/12/25 22:00 01/23/25 21:16 10 MG Amiodarone HCl 200 mg DAILY PO 01/12/25 10:00 01/24/25 09:06 200 MG Apixaban 2.5 mg BID PO 01/12/25 10:00 01/24/25 09:06 2.5 MG Sodium Chloride 10 ml Q8HR IV 01/12/25 06:00 01/24/25 14:06 10 ML Ondansetron HCl 4 mg Q4HP PRN IV 01/12/25 03:15 Docusate Sodium 100 mg BIDPRN PRN PO 01/12/25 03:15 Acetaminophen 650 mg Q6HP PRN PO 01/12/25 03:15 01/12/25 17:45 650 MG Nitroglycerin 0.4 mg Q5MINP PRN SL 01/12/25 03:15 Ipratropium [place] 0.5 mg Q4HR NEB 01/12/25 14:00 01/24/25 10:35 0.5 MG Levalbuterol HCl 1.25 mg Q4HR NEB 01/12/25 14:00 01/24/25 10:36 1.25 MG Vancomycin HCl 0 ml @ 0 mls/hr UD IV 01/12/25 20:00 Hydralazine HCl 10 mg Q4HP PRN IV 01/17/25 12:00 01/22/25 20:28 10 MG Examination Obese male patient lying in the bed General: Obese, afebrile,, mucosae are moist Cardiovascular: Regular S1 and S2. No murmurs, gallops or rubs. No JVD elevation. Resolving bilateral pedal edema pitting. Right tunneled catheter seen. Respiratory: Decreased bilateral air entry on nasal cannula supplementation Abdomen: Soft, nontender, nondistended, normoactive bowel sounds, no rebound tenderness, no organomegaly, no masses Genitourinary: Deferred MSK/skin: Mobilizes 4 limbs. Skin is dry and warm Psych/Mental Status: A/Ox2 laboratory and microbiology Laboratory Tests 01/23/25 05:46 Test 01/23/25 05:46 Range/Units Serum Glucose 108 H 74-106 mg/dL Microbiology Date/Time Source Procedure Growth Status 01/17/25 13:02 Blood Blood Culture - Final NO GROWTH AFTER 5 DAYS OF INCUBATION. Complete 01/16/25 12:06 Catheter Tip Other Aerobic Culture - Final Methicillin Resistant S.aureus Complete Labs and/or images reviewed: Labs reviewed by me, Image(s) reviewed by me Problem List/Assessment/Plan Problem List/Assessment/Plan ESRD on hemodialysis Wednesday/Wednesday/Wednesday Central line associated bloodstream infection MRSA bacteremia Macrocytic Anemia, likely secondary to ESRD Acute hypoxic respiratory failure Acute COPD exacerbation secondary to probable pneumonia Probable sepsis secondary to pneumonia Paroxysmal Atrial fibrillation-on Eliquis-currently sinus Lactic acidosis History of CVA History of diabetes-patient denies Hypertension GERD Plan: HD tomorrow Patient underwent hemodialysis yesterday. Patient is stable to be discharged per Nephrology. Tunneled catheter placed by IR 01/18. Hemodialysis recontinued starting 01/19, 01/21, 01/23. ID recommended vancomycin IV 500 mg with dialysis for the next 6 weeks for presumed endocarditis Previously patient underwent hemodialysis 01/12, and 01/15. Blood cultures 01/13, 01/15, 01/16, 01/17 negative. Underwent left heart catheter removal 01/16. Catheter tip groin MRSA. Patient will require IV vancomycin 2 weeks with a HD after DC Continue IV antibiotics. Continue sevelamer t.i.d. We will continue to follow up Plan discussed with patient in which all questions have been answered Case discussed with Dr. Chow Plan discussed with: Patient Dietary Evaluation Review Comments: 1) Continue liberalizing diet to renal standard diet 2) Consider Nepro Carb steady 240ml daily if PO intake <50% 3) Continue current POC Expected Outcomes/Goals: to meet at least 75% estimated needs fu 3-5 days BEATRIZ ROCK January 24, 2025 14:21 TISH COHW MD January 24, 2025 16:40
--- NOTE | 2025-01-24 20:49 | DVHPN2 ---
Progress Note - Dictate Date Seen: January 24, 2025 Medical Necessity Reason Pt with a Central, PICC or Fol: No Subjective Patient was seen and evaluated in follow up. Patient has no new complaints at this time. Patient denies any cardiac symptoms. Patient is cardiac stable for discharge. Telemetry reviewed. vital signs Vital Sign Date Time Temp Pulse Resp B/P (MAP) Pulse Ox O2 Delivery O2 Flow Rate FiO2 01/24/25 11:06 97.3 106 17 100 01/24/25 10:35 Nasal Cannula* 2 28 01/24/25 09:30 118/80 (93) Total Intake and Output 01/23/25 01/23/25 01/24/25 15:00 23:00 07:00 Intake Total 638 ml 100 ml Balance 638 ml 100 ml medications Current Medications Medications Dose Ordered Sig/Carmen Route Start Time Stop Time Status Last Admin Dose Admin Multivit/Ca Carb/ B Cmplx/FA/Prenat 1 tab DAILY PO 01/12/25 10:00 01/24/25 09:06 1 TAB Sevelamer HCl 1,200 mg TIDWM PO 01/12/25 08:00 01/24/25 12:24 1,200 MG Famotidine 20 mg DAILY IV 01/12/25 10:00 01/24/25 09:05 20 MG Carvedilol 3.125 mg Q12HR PO 01/12/25 10:00 01/24/25 09:06 3.125 MG Atorvastatin Calcium 10 mg HS PO 01/12/25 22:00 01/23/25 21:16 10 MG Amiodarone HCl 200 mg DAILY PO 01/12/25 10:00 01/24/25 09:06 200 MG Apixaban 2.5 mg BID PO 01/12/25 10:00 01/24/25 09:06 2.5 MG Sodium Chloride 10 ml Q8HR IV 01/12/25 06:00 01/24/25 05:10 10 ML Ondansetron HCl 4 mg Q4HP PRN IV 01/12/25 03:15 Docusate Sodium 100 mg BIDPRN PRN PO 01/12/25 03:15 Acetaminophen 650 mg Q6HP PRN PO 01/12/25 03:15 01/12/25 17:45 650 MG Nitroglycerin 0.4 mg Q5MINP PRN SL 01/12/25 03:15 Ipratropium [place] 0.5 mg Q4HR NEB 01/12/25 14:00 01/24/25 10:35 0.5 MG Levalbuterol HCl 1.25 mg Q4HR NEB 01/12/25 14:00 01/24/25 10:36 1.25 MG Vancomycin HCl 0 ml @ 0 mls/hr UD IV 01/12/25 20:00 Hydralazine HCl 10 mg Q4HP PRN IV 01/17/25 12:00 01/22/25 20:28 10 MG objective GENERAL: Alert and oriented x 3. No acute distress.. EYES: PERRL, EOMI. Anicteric. HENT: Moist mucous membranes. LUNGS: Decreased breath sounds. CARDIOVASCULAR: Regular rate and rhythm. ABDOMEN: Soft, nontender and nondistended. EXTREMITIES: No edema. NEUROLOGIC: No focal neurological deficits. SKIN: Warm, dry. laboratory and microbiology Laboratory Tests 01/23/25 05:46 Test 01/23/25 05:46 Range/Units Serum Glucose 108 H 74-106 mg/dL Problem List Atrial fibrillation with RVR. Sepsis, unspecified organism. End-stage renal disease on hemodialysis. Generalized weakness. Assessment/Plan Continued all current supportive medical care. Morphine and [place] for pain management. Amiodarone. Eliquis. Lipitor. Coreg. IV antibiotics as ordered. IV Hydralazine for SBP > 160. Additional plan as per the hospital course. Dietary Evaluation Review Comments: 1) Continue liberalizing diet to renal standard diet 2) Consider Nepro Carb steady 240ml daily if PO intake <50% 3) Continue current POC Expected Outcomes/Goals: to meet at least 75% estimated needs fu 3-5 days Plan discussed with: Patient ANASTASIYA KOLB MD January 24, 2025 13:05
--- NOTE | 2025-01-24 22:14 | DVHPN2 ---
Consult Progress Note Date Seen: January 24, 2025 Subjective Patient reports: Other (doing well on IV antibiotic therapy and toleratign dialysis . continuing to have right sided deficits and tolerating renal diet ) Objective vital signs Vital Sign Date Time Temp Pulse Resp B/P (MAP) Pulse Ox O2 Delivery O2 Flow Rate FiO2 01/24/25 14:36 98 18 99 01/24/25 14:26 Nasal Cannula* 2 28 01/24/25 13:16 97.4 135/79 (97) 97.4 Total Intake and Output 01/23/25 01/23/25 01/24/25 15:00 23:00 07:00 Intake Total 638 ml 100 ml Balance 638 ml 100 ml laboratory and microbiology Laboratory Tests 01/23/25 05:46 Test 01/23/25 05:46 Range/Units Serum Glucose 108 H 74-106 mg/dL Problem List/Assessment/Plan Problems(with codes): (1) Nausea (2) Metabolic encephalopathy (3) ESRD (end stage renal disease) on dialysis (4) MRSA (methicillin resistant Staphylococcus aureus) septicemia (5) Altered mental status (6) Weakness (7) Syncope (8) Leukocytosis (9) Atrial fibrillation with RVR Problem List/Assessment/Plan ASSESSMENT AND PLAN: ID Problem List: - Catheter-associated MRSA bacteremia - Severe sepsis - End-stage renal disease on hemodialysis - History of stroke with left-sided deficits (also noted as right-sided deficits in parts of transcript; clarify later if needed) COPD - Diabetes mellitus - Hypertension - Congestive heart failure Assessment: Mr. 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 On admission, laboratory findings were significant for leukocytosis (WBC 15.1), Hct 10.8, platelets 207, sodium 139, BUN 27, creatinine 4.64, glucose 101, and lactic acid 2.4. Physical examination notes obesity and left chest wall dialysis catheter site tenderness. The patient developed hypotension (BP decreased from 174/94 to 98/54) and tachycardia (HR 121 improved to 78 post-fluid bolus), as well as hypoxemia (SpO2 79% on 6L NC) with tachypnea (RR 32). Blood cultures returned positive for MRSA in 4/4 bottles (drawn 01/11 and 01/12); subsequent cultures after catheter removal have been negative for >72 hours as of 01/13. Chest imaging notes removal of the right internal jugular central line, placement of hemodialysis catheter in the left chest wall with tip in distal SVC, and mildly prominent bronchovascular markings left perihilar lobe. No acute/clear evidence of pulmonary infiltrate. Echocardiogram was limited by body habitus but showed aortic stenosis (valve area 1.4 cm), dyskinesis of interventricular septum, mild LVH, mild left ventricular diastolic dysfunction, and mildly dilated right-sided chambers. 01/15: patients blood cultures continue to be negative , catheter cultures are pending 01/16:catheter cultures are are showing staph aureus 01/17: improved signs of sepsis and bacteremia is clearing 01/18: tolerating dialysis 01/19: patients vancomycin troths are therapeutic 01/20: patients resumes dialysis on Sunday 01/21: patient is awaiting a ANGEL procedure evaluation by cardiology to determine if patient will require 4 or 6 weeks of IV vancomycin 01/22: since patient is not a candidate for TTE would recommend 6 weeks of empirically treatment for presumed endocarditis 01/23: awaiting placement at dialysis center 01/24: set up to go home with dialysis and understands plan to get vancomycin with dialysis 3x a week Plan: - treatment for presumed endocarditis is 500mg MWF for 6 weeks with dialysis - follow up with infectious disease clinic in 4-6 weeks - once blood cultures are negative for 72 hours can replace the dialysis catheter line - patient will need vancomycin as outpatient for a minimum of 4-6 weeks -Continue intravenous vancomycin; patient appears to be responding well - Catheter removal has been performed; plan to replace dialysis line after ?72 hours of negative blood cultures - Once negative cultures maintained for at least 72 hours, initiate a 46 week course of IV vancomycin - Transesophageal echocardiogram (ANGEL) is planned to rule out endocarditis, as transthoracic study was inconclusive and suspicion remains elevated - Monitor daily blood cultures until negative clearance confirmed - Monitor for clinical stability and resolution of sepsis - Dialysis to continue per // schedule; ensure line access as above - No evidence of pulmonary infection or viral etiologies (Flu A, Flu B, COVID-19 all negative) - Supportive care including oxygen and fluid management as needed Isolation Precautions: Standard Plan discussed with: Other Dietary Evaluation Review Comments: 1) Continue liberalizing diet to renal standard diet 2) Consider Nepro Carb steady 240ml daily if PO intake <50% 3) Continue current POC Expected Outcomes/Goals: to meet at least 75% estimated needs fu 3-5 days RG STEVE MD January 24, 2025 22:14
[2025-01-25] MEDS ORDERED: SODIUM CHL 0.9% 1000 ML BAG XX ONE (07:00)
[2025-01-25] MEDS ORDERED: EPOETIN ALFA-EPBX 10,000 UNIT/1ML VIAL SC ONE (21:00)
== END 2025-01-24 16:50 | disposition hospice, home (50) | DRG 314 ==
LOC: ER 20:09 → EDBD 20:09 → OVERFLOW 01-12 03:07 → TELE-CENTR 01-12 16:13 → TELE-EAST 01-13 19:34
PROVIDERS: ADMIT Family Medicine; ATTEND Family Medicine
PROC: 5A1D70Z Performance of Urinary Filtration, Intermittent, Less than 6 Hours Per Day (ICD-10-PCS; 2025-01-12)
PROC: 5A09357 Assistance with Respiratory Ventilation, Less than 24 Consecutive Hours, Continuous Positive Airway Pressure (ICD-10-PCS; 2025-01-13)
PROC: 5A09357 Assistance with Respiratory Ventilation, Less than 24 Consecutive Hours, Continuous Positive Airway Pressure (ICD-10-PCS; 2025-01-14)
PROC: 5A1D70Z Performance of Urinary Filtration, Intermittent, Less than 6 Hours Per Day (ICD-10-PCS; 2025-01-15)
PROC: 0JH63XZ Insertion of Tunneled Vascular Access Device into Chest Subcutaneous Tissue and Fascia, Percutaneous Approach (ICD-10-PCS; principal; 2025-01-19)
PROC: 02HV33Z Insertion of Infusion Device into Superior Vena Cava, Percutaneous Approach (ICD-10-PCS; 2025-01-19)
PROC: B518ZZA Fluoroscopy of Superior Vena Cava, Guidance (ICD-10-PCS; 2025-01-19)
PROC: B548ZZA Ultrasonography of Superior Vena Cava, Guidance (ICD-10-PCS; 2025-01-19)
PROC: 5A1D70Z Performance of Urinary Filtration, Intermittent, Less than 6 Hours Per Day (ICD-10-PCS; 2025-01-19)
PROC: 02PY33Z Removal of Infusion Device from Great Vessel, Percutaneous Approach (ICD-10-PCS; 2025-01-19)
PROC: 5A1D70Z Performance of Urinary Filtration, Intermittent, Less than 6 Hours Per Day (ICD-10-PCS; 2025-01-21)
PROC: 5A1D70Z Performance of Urinary Filtration, Intermittent, Less than 6 Hours Per Day (ICD-10-PCS; 2025-01-23)
DX: T80.211A Bloodstream infection due to central venous catheter, initial encounter (principal); A41.02 Sepsis due to Methicillin resistant Staphylococcus aureus; J96.21 Acute and chronic respiratory failure with hypoxia; N18.6 End stage renal disease; R65.20 Severe sepsis without septic shock; J15.212 Pneumonia due to Methicillin resistant Staphylococcus aureus; J15.9 Unspecified bacterial pneumonia; I13.2 Hypertensive heart and chronic kidney disease with heart failure and with stage 5 chronic kidney disease, or end stage renal disease; I50.32 Chronic diastolic (congestive) heart failure; J44.1 Chronic obstructive pulmonary disease with (acute) exacerbation; E87.20 Acidosis, unspecified; J44.0 Chronic obstructive pulmonary disease with (acute) lower respiratory infection; D50.9 Iron deficiency anemia, unspecified; E66.9 Obesity, unspecified; I25.10 Atherosclerotic heart disease of native coronary artery without angina pectoris; I48.0 Paroxysmal atrial fibrillation; I35.0 Nonrheumatic aortic (valve) stenosis; K21.9 Gastro-esophageal reflux disease without esophagitis; M10.9 Gout, unspecified; E78.5 Hyperlipidemia, unspecified; Z20.822 Contact with and (suspected) exposure to COVID-19; E11.22 Type 2 diabetes mellitus with diabetic chronic kidney disease; Y84.8 Other medical procedures as the cause of abnormal reaction of the patient, or of later complication, without mention of misadventure at the time of the procedure; Z68.32 Body mass index [BMI] 32.0-32.9, adult; Z99.2 Dependence on renal dialysis; Z99.81 Dependence on supplemental oxygen; Z82.49 Family history of ischemic heart disease and other diseases of the circulatory system; Z82.5 Family history of asthma and other chronic lower respiratory diseases; Z79.82 Long term (current) use of aspirin; Z79.899 Other long term (current) drug therapy; Z79.01 Long term (current) use of anticoagulants; Z80.8 Family history of malignant neoplasm of other organs or systems; Y92.89 Other specified places as the place of occurrence of the external cause
CPT/HCPCS: 36415; 36558; 36600; 71045; 76942; 77001; 80048; 80053; 80202; 82306; 82565; 82805; 82962; 83036; 83605; 83735; 83880; 83970; 84100; 84132; 84295; 84484; 84520; 85007; 85025; 85027; 85048; 85610; 85730; 87040; 87070; 87075; 87077; 87081; 87147; 87186; 87340; 87426; 87804; 90935; 93005; 93306; 94640; 94660; 96365; 99152; 99291; C1894; G0378; J1642; J2003; J2250; J3490; Q9967

== ENCOUNTER 2025-02-18 15:12 | Inpatient (IN) | payer OTHER, MEDICAID ==
[~2025-02-18] VITALS: Ht 185.4 cm; Wt 110.1 kg
[~2025-02-18 15:12] MED LIST changes: -LEVO250T58 PO; +LOSA-533 PO; -METH4PAK PO; -ONDA-144 PO
--- NOTE | 2025-02-18 15:20 | ED.PDOC ---
SOB-HPI HPI Comments 79 y.o male with PMHx of COPD, HTN, HLD, CVA, prostate cancer and CHF, presents to the ED via EMS for a chief complaint of SOB that started today. EMS reports patient is coming from [facility], where he resides, states staff has been administrating multiple breathing treatments but patient has no relief. On scene, EMS noted wheezing and diminish lung sounds on bilateral sides with hypertensive pressure of 226/113. EMS placed patient on C- Pap, increasing SPO2 to 97-100% and with respiratory distress relief from patient. Patient denies any chest pain, fever, chills, leg swelling, cough. 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 Modifying Factors: Nothing Associated Signs and Symptoms: None Past Medical History PAST MEDICAL HISTORY: CAD, CHF, COPD, CVA, DM, ESRD, GERD, Gout, High Lipids, HTN, UTI'S Surgical History: PTCA Family History Family History: Reviewed,noncontributory to illness, Family hx of Cancer Social History Smoker: Non-Smoker, Quit Greater Than 1 Year Alcohol: Denies ETOH Use Drugs: Denies Drug Use Lives In: [facility] Constitutional: denies: chills, diaphoresis, fatigue, fever, malaise, sweats, weakness, others EENTM: denies: blurred vision, double vision, ear bleeding, ear discharge, ear drainage, ear pain, ear ringing, eye pain, eye redness, hearing loss, mouth pain, mouth swelling, nasal discharge, nose bleeding, nose congestion, nose pain, photophobia, tearing, throat pain, throat swelling, voice changes, others Respiratory: reports: SOB at rest, shortness of breath, SOB with excertion, wheezing; denies: cough, hemoptysis, orthopnea, stridor, others Cardiovascular: denies: chest pain, dizzy spells, diaphoresis, Dyspnea on exertion, edema, irregular heart beat, left arm pain, lightheadedness, palpitations, PND, syncope, others Gastrointestinal: denies: abdomen distended, abdominal pain, blood streaked bowels, constipated, diarrhea, dysphagia, difficulty swallowing, hematemesis, melena, nausea, poor appetite, poor fluid intake, rectal bleeding, rectal pain, vomiting, others Genitourinary: denies: burning, dysuria, flank pain, frequency, hematuria, incontinence, penile discharge, penile sore, pain, testicle pain, testicle swelling, urgency, others Neurological: denies: dizziness, fainting, headache, left sided numbness, left sided weakness, numbness, paresthesia, pre-existing deficit, right sided numbness, right sided weakness, seizure, speech problems, tingling, tremors, weakness, others Musculoskeletal: denies: back pain, gout, joint pain, joint swelling, muscle pain, muscle stiffness, neck pain, others Integumetry: denies: bruises, change in color, change in hair/nails, dryness, laceration, lesions, lumps, rash, wounds, others Allergic/Immunocompromised: denies: Difficulty Healing, Frequent Infections, Hives, Itching, others Hematologic/Lymphatic: denies: anemia, blood clots, easy bleeding, easy bruising, swollen glands, others Endocrine: denies: excessive hunger, excessive sweating, excessive thirst, excessive urination, flushing, intolerance to cold, intolerance to heat, unexplained weight gain, unexplained weight loss, others Psychiatric: denies: anxiety, bipolar disorder, depression, hopeless, panic disorder, schizophrenia, sleepless, suicidal, others All Other Systems: Reviewed and Negative Physical Exam General Appearance: Severe Distress HEENT: Normal ENT Inspection, Pharynx Normal, TMs Normal Neck: Full Range of Motion, Non-Tender, Normal, Normal Inspection Respiratory: Accessory Muscle Use, Chest Non-Tender, Decreased Breath Sounds, Respiratory Distress Cardiovascular: No Edema, No JVD, No Murmur, No Gallop, Tachycardia Breast Exam: Deferred Gastrointestinal: No Organomegaly, Non Tender, No Pulsatile Mass, Normal Bowel Sounds, Soft Genitalia: Deferred Pelvic: Deferred Rectal: Deferred Extremities: No calf tenderness, Normal capillary refill, Pedal edema Musculoskeletal : Apperance: Normal Neurologic: Alert, front desk monitor II-XII nml as Tested, Motor Weakness, Normal Affect, Normal Mood, No Sensory Deficits Cerebellar Function: Normal Reflexes: Normal Skin: Dry, Pallor, Warm Lymphatic: No Adenopathy EKG EKG : Pulse Rate (adult): 102 [place]: Normal Cardiac Rhythm: ST Block: None ST: Nonsp Was a procedure done? Was a procedure done?: No Differential Dx Differential Diagnosis: Asthma, Bronchitis, CHF, COPD, Pneumonia, Pneumothorax, Respiratory Distress, URI X-Ray, Labs, Meds, VS Vital Signs Date Time Temp Pulse Resp B/P (MAP) Pulse Ox O2 Delivery O2 Flow Rate FiO2 02/18/25 17:08 198/96 02/18/25 17:06 180/96 02/18/25 16:34 101 25 97 Nasal Cannula* 3 32 02/18/25 16:02 96 02/18/25 15:35 102 02/18/25 15:33 102 02/18/25 15:26 22 100 Nasal Cannula* 4 36 02/18/25 15:24 203/126 02/18/25 15:15 97.8 101 28 203/126 (151) 100 97.8 02/18/25 15:12 97.8 97 26 223/113 (149) 100 97.8 Lab Test 02/18/25 16:36 02/18/25 15:34 Range/Units Troponin I High Sensitivity 24 25 </=54 ng/L White Blood Count 9.2 4.4-10.8 10^3/uL Red Blood Count 3.35 L 4.5-5.90 10^6/uL Hemoglobin 10.7 L 13.5-17.5 g/dL Hematocrit 33.7 L 41.0-53.0 % Mean Corpuscular Volume 100.7 H 80.0-100.0 fL Mean Corpuscular Hemoglobin 31.9 28.0-32.0 pg Mean Corpuscular Hemoglobin Concent 31.7 L 32.0-36.0 g/dL Red Cell Distribution Width 17.0 H 11.8-14.3 % Platelet Count 240 140-450 10^3/uL Mean Platelet Volume 6.9 6.9-10.8 fL Neutrophils (%) (Auto) 76.1 37.0-80.0 % Lymphocytes (%) (Auto) 9.4 L 10.0-50.0 % Monocytes (%) (Auto) 4.6 0.0-12.0 % Eosinophils (%) (Auto) 8.7 H 0.0-7.0 % Basophils (%) (Auto) 1.2 0.0-2.0 % Neutrophils # (Auto) 7.0 1.6-8.6 10 ^3/uL Lymphocytes # (Auto) 0.9 0.4-5.4 10 ^3/uL Monocytes # (Auto) 0.4 0-1.3 10 ^3/uL Eosinophils # (Auto) 0.8 0-0.8 10 ^3/uL Basophils # (Auto) 0.1 0-0.2 10 ^3/uL Nucleated Red Blood Cells 0.0 % Sodium Level 140 136-145 mmol/L Potassium Level 3.9 3.5-5.1 mmol/L Chloride Level 100 98-107 mmol/L Carbon Dioxide Level 31 20-31 mmol/L Anion Gap 9 5-15 Blood Urea Nitrogen 25 H 9-23 mg/dL Creatinine 4.74 H 0.700-1.30 mg/dL Glomerular Filtration Rate Calc 12 >90 mL/min BUN/Creatinine Ratio 5.3 L 10.0-20.0 Serum Glucose 137 H 74-106 mg/dL Calcium Level 8.9 8.7-10.4 mg/dL B-Type Natriuretic Peptide 310.52 0-100 pg/mL Current Medications Medications (Trade) Dose Ordered Sig/Carmen Route Start Time Stop Time Status Last Admin Methylprednisolone Sodium Succinate (Solu Medrol) 125 mg ONCE ONCE IV 02/18/25 15:15 02/18/25 15:17 DC 02/18/25 15:25 Nitroglycerin (Ntrostat Sublingual) 0.4 mg ONCE ONCE SL 02/18/25 15:15 02/18/25 15:17 DC 02/18/25 15:24 Ipratropium [place] (Atrovent Medneb) 1 mg ONCE ONCE HHN 02/18/25 15:30 02/18/25 15:31 DC 02/18/25 15:25 Albuterol (Ventolin Medneb) 10 mg ONCE ONCE N 02/18/25 15:30 02/18/25 15:31 DC 02/18/25 15:25 Furosemide (Lasix Injection) 80 mg ONCE ONCE IV 02/18/25 16:30 02/18/25 16:31 DC 02/18/25 17:06 The chest x-ray shows: IMPRESSION: 1. Worsening infiltrate left lower lobe and left perihilar area. 2. Removal of the left internal jugular catheter 3. Placement of a right internal jugular hemodialysis catheter with the tip at the cavoatrial junction.. Upon arrival, the patient was on a CPAP machine but we did change the patient to a non-rebreather. Shortly after that we change the patient to a nasal cannula because he was still saturating at 100% We did start the patient on a breathing treatment of albuterol and Atrovent. The patient was significantly hypertensive so was given nitroglycerin x3 and the blood pressure did subsequently normalized down to a diastolic less than 90. The BNP is 310.52 The patient was given 80 mg of Lasix because he still produces urine despite being on dialysis. At this time, the patient's seems to be improving The patient is being admitted to the hospitalist Images Reviewed?: Images reviewed and evaluated by me Time of 1ST Reevaluation: 15:15 Reevaluation 1ST: Unchanged Patient Education/Counseling: Diagnosis, Treatment, Prognosis Family Education/Counseling: Diagnosis, Treatment, Prognosis Departure 1 Departure Time of Disposition: 19:04 Impression: Primary Impression: Acute respiratory failure Qualified Codes: J96.01 - Acute respiratory failure with hypoxia Additional Impressions: ESRD (end stage renal disease) on dialysis Generalized weakness Disposition: 09 ADMITTED INPATIENT Admit to: [facility] Condition: Fair Critical Care Note Critical Care Time?: Yes (35 min-critical care time only) Stability Stability form required: Yes Unstable for transfer: Telemetry monitoring (Telemetry monitoring required), ED Physician Assesment (Clinical assesment) Heart Score Heart Score: Heart Score Response (Comments) Value History Moderate Suspicious 1 EKG Repolarization Disturb 1 Age >65 2 Risk Factors >3 or Hx ASHD 2 Troponin Normal limit 0 Total 6 I personally scribed for ARJUN GOODSON MD ([email or web address]) on 02/18/25 at 15:20. Nevaeh ctronically submitted by Jocelyne Antunez ([facility]). ARJUN GOODSON MD Feb 18, 2025 15:20
[2025-02-18] MEDS: NITROGLYCERIN 0.4 MG SL TAB SL ONE (15:24)
[2025-02-18] MEDS: IPRATROPIUM BROM 0.5 MG/2.5ML INH SOL HHN ONE (15:25)
[2025-02-18] MEDS: ALBUTEROL SULF 2.5 MG/0.5ML(0.5%) NEB SOLN HHN ONE (15:25)
[2025-02-18] MEDS: methylPREDNISolone SOD SUCC 125 MG/2 ML VL IV ONE (15:25)
[2025-02-18 15:48] LABS: Basophils # (auto) 0.1 10 ^3/uL (0-0.2); Basophils % (auto) 1.2 % (0.0-2.0); Eosinophils # (auto) 0.8 10 ^3/uL (0-0.8); Eosinophils % (auto) 8.7 % (0.0-7.0); Hematocrit 33.7 % (41.0-53.0); Hemoglobin 10.7 g/dL (13.5-17.5); Lymphocytes # (auto) 0.9 10 ^3/uL (0.4-5.4); Lymphocytes % (auto) 9.4 % (10.0-50.0); Mean Corpuscular Hemoglobin 31.9 pg (28.0-32.0); Mean Corpuscular Hgb Conc. 31.7 g/dL (32.0-36.0); Mean Corpuscular Volume 100.7 fL (80.0-100.0); Monocytes # (auto) 0.4 10 ^3/uL (0-1.3); Monocytes % (auto) 4.6 % (0.0-12.0); Neutrophils % (auto) 76.1 % (37.0-80.0); Platelet Count (auto) 240 10^3/uL (140-450); Red Blood Cells 3.35 10^6/uL (4.5-5.90); White Blood Cell 9.2 10^3/uL (4.4-10.8)
[2025-02-18 15:53] LABS: Chloride 100 mmol/L (98-107); Potassium 3.9 mmol/L (3.5-5.1); Sodium 140 mmol/L (136-145)
--- NOTE | 2025-02-18 15:53 | ECG ---
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
--- NOTE | 2025-02-18 15:53 | DVH ---
CHEST RADIOGRAPH Indication: sob Technique: Single frontal view of the chest was obtained Comparison: XY CHEST XRAY 1 VIEW on DOS: 01/11/25, XY CHEST XRAY 1 VIEW on DOS: 03/13/24, XY CHEST PORTAB LE on DOS: 08/02/23 FINDINGS: Lines and Tubes: Removal hemodialysis catheter from the left and placed from the right internal jugul ar vein with the tip of the cavoatrial junction. Lungs: Increasing infiltrate left lower lobe and left perihilar area when compared to 01/11/2025 Pleura: No effusion. No pneumothorax. Cardiomediastinal contours: Unremarkable Bones: No acute osseous abnormality. IMPRESSION: 1. Worsening infiltrate left lower lobe and left perihilar area. 2. Removal of the left internal jugular catheter 3. Placement of a right internal jugular hemodialysis catheter with the tip at the cavoatrial junctio n..
[2025-02-18 15:54] LABS: Anion Gap 9 (5-15); Calcium 8.9 mg/dL (8.7-10.4)
[2025-02-18 15:59] LABS: BUN/Creatinine Ratio 5.3 (10.0-20.0)
[2025-02-18 16:06] LABS: Blood Urea Nitrogen 25 mg/dL (9-23); Glucose 137 mg/dL (74-106)
[2025-02-18 16:07] LABS: Carbon Dioxide 31 mmol/L (20-31)
[2025-02-18 16:34] VITALS: PULSE 101; RESP 25; O2SAT 97
[2025-02-18] MEDS: FUROSEMIDE 100 MG/10ML VIAL IV ONE (17:06)
[2025-02-18 19:30] VITALS: PULSE 79; RESP 29; O2SAT 99
[2025-02-18] MEDS ORDERED: ALBUTEROL SULF 2.5 MG/0.5ML(0.5%) NEB SOLN NEB PRN (19:45)
[2025-02-18] MEDS ORDERED: ACETAMINOPHEN 325 MG TAB PO PRN (19:45)
[2025-02-18] MEDS ORDERED: ONDANSETRON HCL 4 MG/2 ML VIAL IV PRN (19:45)
[2025-02-18 20:26] VITALS: BP 174/90; PULSE 79; RESP 20; O2SAT 99
[2025-02-18] MEDS: METOPROLOL SUCCINATE XL 50 MG TAB PO ONE (20:26)
[2025-02-18] MEDS: cefTRIAXone 1GM/50ML D5W 50 ML IV ONE (20:26)
[2025-02-18] MEDS: AZITHROMYCIN 500MG/ 250ML 250 ML IV ONE (23:20)
[2025-02-18] MEDS: ATORVASTATIN 20 MG TAB PO SCH (23:29)
[2025-02-18] MEDS: APIXABAN 2.5 MG TAB PO SCH (23:29)
[2025-02-19] VITALS (7 sets, daily range): BP systolic 137–175; BP diastolic 83–100; PULSE 76–81; RESP 18–21; TEMP 97.5–98.4; O2SAT 90–100
--- NOTE | 2025-02-19 00:07 | DVHHP2 ---
History of Present Illness Reason for Visit: Shortness for breath History of Present Illness 79-year-old male presents for evaluation of shortness for breath. Patient reports a two day history of worsening shortness for breath with associated productive cough with yellow/brown phlegm. Denies chest pain or palpitations. Reports occasional chills. No other acute complaints reported. Past Medical History CVA, diabetes mellitus, COPD, CHF, end-stage renal disease, dyslipidemia, hypertension, Past Surgical History PTCA, dialysis access Family History Noncontributory Smoke: Quit ALCOHOL: none Drugs: None Lives: with Family Review of Systems Review of Systems Review of systems are currently negative otherwise addressed in HPI. Allergies: Coded Allergies: NO KNOWN ALLERGIES (Unverified , 03/08/18) Medications Current Medications Medications Dose Ordered Sig/Carmen Route Start Time Stop Time Status Last Admin Dose Admin Metoprolol Succinate 50 mg DAILY PO 02/19/25 10:00 Albuterol 2.5 mg Q6HPRN PRN NEB 02/18/25 19:45 Ceftriaxone Sodium 50 ml @ 100 mls/hr DAILY@09 IV 02/19/25 09:00 Azithromycin 250 ml @ 125 mls/hr DAILY IV 02/19/25 10:00 Apixaban 2.5 mg BID PO 02/18/25 22:00 02/18/25 23:29 2.5 MG Sevelamer HCl 800 mg TIDWM PO 02/19/25 08:00 Atorvastatin Calcium 20 mg HS PO 02/18/25 22:00 02/18/25 23:29 20 MG Ondansetron HCl 4 mg Q4HP PRN IV 02/18/25 19:45 Acetaminophen 650 mg Q6HP PRN PO 02/18/25 19:45 Exam Vital Signs Vital Signs Date Time Temp Pulse Resp B/P (MAP) Pulse Ox O2 Delivery O2 Flow Rate FiO2 02/18/25 20:26 79 174/90 02/18/25 20:26 20 99 3.0 02/18/25 19:30 97.9 97.9 02/18/25 19:30 Nasal Cannula* 32 Exam Gen: 79-year-old male in mild distress Skin: Warm, dry, normal color and texture, no rash. HEENT: Normocephalic atraumatic, mucous membranes moist and pink. Neck: Cervical and supraclavicular nodes normal without enlargement, trachea is midline, thyroid gland is normal without masses. Pulmonary: Rhonchi Cardiac: Regular rate and rhythm. No murmur Abdomen: Soft, nontender, nondistended, bowel sounds present all 4 quadrants, no guarding, no rigidity, no organomegaly. Extremities: No cyanosis, clubbing, no edema Neuro: Cranial nerves II through XII grossly intact, normal affect and speech, no focal motor deficits. Labs/Xrays ORDERING PHYSICIAN: ARJUN GOODSON MD PROCEDURE(s): CXRP - CHEST PORTABLE REASON: sob ORDER NUMBER(s): [id number], ACCESSION NUMBER(s): [id number] CHEST RADIOGRAPH Indication: sob Technique: Single frontal view of the chest was obtained Comparison: XY CHEST XRAY 1 VIEW on DOS: 01/11/25, XY CHEST XRAY 1 VIEW on DOS: 03/13/24, XY CHEST PORTABLE on DOS: 08/02/23 FINDINGS: Lines and Tubes: Removal hemodialysis catheter from the left and placed from the right internal jugular vein with the tip of the cavoatrial junction. Lungs: Increasing infiltrate left lower lobe and left perihilar area when compared to 01/11/2025 Pleura: No effusion. No pneumothorax. Cardiomediastinal contours: Unremarkable Bones: No acute osseous abnormality. IMPRESSION: 1. Worsening infiltrate left lower lobe and left perihilar area. 2. Removal of the left internal jugular catheter 3. Placement of a right internal jugular hemodialysis catheter with the tip at the cavoatrial junction.. Labs Test 02/18/25 19:03 02/18/25 15:34 Range/Units Troponin I High Sensitivity 23 </=54 ng/L White Blood Count 9.2 4.4-10.8 10^3/uL Red Blood Count 3.35 L 4.5-5.90 10^6/uL Hemoglobin 10.7 L 13.5-17.5 g/dL Hematocrit 33.7 L 41.0-53.0 % Mean Corpuscular Volume 100.7 H 80.0-100.0 fL Mean Corpuscular Hemoglobin 31.9 28.0-32.0 pg Mean Corpuscular Hemoglobin Concent 31.7 L 32.0-36.0 g/dL Red Cell Distribution Width 17.0 H 11.8-14.3 % Platelet Count 240 140-450 10^3/uL Mean Platelet Volume 6.9 6.9-10.8 fL Neutrophils (%) (Auto) 76.1 37.0-80.0 % Lymphocytes (%) (Auto) 9.4 L 10.0-50.0 % Monocytes (%) (Auto) 4.6 0.0-12.0 % Eosinophils (%) (Auto) 8.7 H 0.0-7.0 % Basophils (%) (Auto) 1.2 0.0-2.0 % Neutrophils # (Auto) 7.0 1.6-8.6 10 ^3/uL Lymphocytes # (Auto) 0.9 0.4-5.4 10 ^3/uL Monocytes # (Auto) 0.4 0-1.3 10 ^3/uL Eosinophils # (Auto) 0.8 0-0.8 10 ^3/uL Basophils # (Auto) 0.1 0-0.2 10 ^3/uL Nucleated Red Blood Cells 0.0 % Sodium Level 140 136-145 mmol/L Potassium Level 3.9 3.5-5.1 mmol/L Chloride Level 100 98-107 mmol/L Carbon Dioxide Level 31 20-31 mmol/L Anion Gap 9 5-15 Blood Urea Nitrogen 25 H 9-23 mg/dL Creatinine 4.74 H 0.700-1.30 mg/dL Glomerular Filtration Rate Calc 12 >90 mL/min BUN/Creatinine Ratio 5.3 L 10.0-20.0 Serum Glucose 137 H 74-106 mg/dL Calcium Level 8.9 8.7-10.4 mg/dL B-Type Natriuretic Peptide 310.52 0-100 pg/mL Assessment/Plan Assessment/Plan Assessment Community-acquired pneumonia End-stage renal disease, dialysis dependent Accelerated hypertension COPD Plan Admit the patient to telemetry to the hospitalist Med nebs Rocephin/azithromycin Resume home medications Continue treatment per orders Plan discussed with: Patient My Orders Orders - FABIÁN LEE AGACNP Procedure Category Date Status Time Metoprolol Xl PHA 02/19/25 In Process Succinate (Toprol Xl) 10:00 Albuterol Medneb PHA 02/18/25 In Process (Ventolin Medneb) 19:45 Ceftriaxone 1gm/50ml PHA 02/19/25 In Process D5w (Rocephin) 09:00 Apixaban (Eliquis) PHA 02/18/25 In Process 22:00 Sevelamer (Renagel) PHA 02/19/25 In Process 08:00 Atorvastatin (Lipitor) PHA 02/18/25 In Process 22:00 *[facility] CONS 02/18/25 Transmitted -[place] 19:37 Admit ADMIT 02/18/25 Transmitted 19:37 Renal DIET 02/19/25 Transmitted Standard(2gna,3gk,Lopho) Breakfast Ondansetron Hcl PHA 02/18/25 In Process (Zofran) 19:45 Complete Blood Count LAB 02/19/25 Logged 04:00 Condition: Stable LULY 02/18/25 In Process 19:37 Acetaminophen Tablet PHA 02/18/25 In Process (Tylenol Tablet) 19:45 Bedrest With Bathroom LULY 02/18/25 In Process Privileg 19:37 Basic Metabolic Panel LAB 02/19/25 Logged 04:00 Azithromycin 500mg/ PHA 02/19/25 In Process 250ml (Zithromax 50 10:00 Date of Service: Feb 18, 2025 Billing Provider: FABIÁN LEE Common Visit Codes: [id number] INP/OBS CARE (HIGH) FABIÁN LEE Feb 19, 2025 00:07
[2025-02-19 08:28] LABS: Basophils # (auto) 0 10 ^3/uL (0-0.2); Hemoglobin 10.9 g/dL (13.5-17.5); Monocytes # (auto) 0.6 10 ^3/uL (0-1.3); Nucleated Red Blood Cells % 0.2 %; Red Cell Distribution Width 17.4 % (11.8-14.3)
[2025-02-19 08:30] LABS: Basophils % (auto) 0.4 % (0.0-2.0); Eosinophils # (auto) 0.1 10 ^3/uL (0-0.8); Eosinophils % (auto) 0.8 % (0.0-7.0); Hematocrit 35.1 % (41.0-53.0); Lymphocytes # (auto) 0.8 10 ^3/uL (0.4-5.4); Lymphocytes % (auto) 8.3 % (10.0-50.0); Mean Corpuscular Hemoglobin 31.7 pg (28.0-32.0); Mean Corpuscular Hgb Conc. 31.1 g/dL (32.0-36.0); Mean Corpuscular Volume 101.9 fL (80.0-100.0); Monocytes % (auto) 6.1 % (0.0-12.0); Neutrophils # (auto) 8.4 10 ^3/uL (1.6-8.6); Neutrophils % (auto) 84.4 % (37.0-80.0); Platelet Count (auto) 241 10^3/uL (140-450); Red Blood Cells 3.45 10^6/uL (4.5-5.90)
[2025-02-19 08:35] LABS: Chloride 100 mmol/L (98-107); Sodium 138 mmol/L (136-145)
[2025-02-19 08:36] LABS: Anion Gap 12 (5-15); Calcium 9.3 mg/dL (8.7-10.4); Carbon Dioxide 26 mmol/L (20-31)
[2025-02-19 08:41] LABS: BUN/Creatinine Ratio 5.2 (10.0-20.0)
[2025-02-19 08:43] LABS: Blood Urea Nitrogen 27 mg/dL (9-23); Glucose 108 mg/dL (74-106); Potassium 5.2 mmol/L (3.5-5.1)
[2025-02-19] MEDS: SEVELAMER 800 MG TAB PO SCH (09:32)
[2025-02-19] MEDS: METOPROLOL SUCCINATE XL 50 MG TAB PO SCH (09:33)
[2025-02-19] MEDS: cefTRIAXone 1GM/50ML D5W 50 ML IV SCH (09:34)
[2025-02-19] MEDS ORDERED: AZITHROMYCIN 500MG/ 250ML 250 ML IV SCH (10:00)
--- NOTE | 2025-02-19 10:19 | DVHPN2 ---
Progress Note Date Seen: Feb 19, 2025 Medical Necessity Reason Pt with a Central, PICC or Fol: No Subjective Patient reports: No new complaints Review of Systems: HEENT:Normal, CVS:Normal, RESPIRATORY:Normal, GI:Normal, :Normal, MSK:Normal, NEURO:Normal Objective vital signs Vital Sign Date Time Temp Pulse Resp B/P (MAP) Pulse Ox O2 Delivery O2 Flow Rate FiO2 02/19/25 09:33 79 139/89 02/19/25 08:32 97.5 20 100 97.5 02/18/25 22:30 Nasal Cannula* 2 28 Total Intake and Output 02/18/25 02/18/25 02/19/25 15:00 23:00 07:00 Intake Total 250 ml Balance 250 ml medications Current Medications Medications Dose Ordered Sig/Carmen Route Start Time Stop Time Status Last Admin Dose Admin Metoprolol Succinate 50 mg DAILY PO 02/19/25 10:00 02/19/25 09:33 50 MG Albuterol 2.5 mg Q6HPRN PRN NEB 02/18/25 19:45 Ceftriaxone Sodium 50 ml @ 100 mls/hr DAILY@09 IV 02/19/25 09:00 02/19/25 09:34 100 MLS/HR Azithromycin 250 ml @ 125 mls/hr DAILY IV 02/19/25 10:00 Apixaban 2.5 mg BID PO 02/18/25 22:00 02/19/25 09:33 2.5 MG Sevelamer HCl 800 mg TIDWM PO 02/19/25 08:00 02/19/25 09:32 800 MG Atorvastatin Calcium 20 mg HS PO 02/18/25 22:00 02/18/25 23:29 20 MG Ondansetron HCl 4 mg Q4HP PRN IV 02/18/25 19:45 Acetaminophen 650 mg Q6HP PRN PO 02/18/25 19:45 Examination: GENERAL:Normal, HEENT:Normal, NECK:Normal, LUNGS:Normal, LUNGS:Abnormal (on oxygen), CVS:Normal, ABDOMEN:Normal, MSK:Normal, SKIN:Normal, NEURO:Normal, :Normal laboratory and microbiology Laboratory Tests 02/19/25 08:12 Test 02/19/25 08:12 Range/Units Serum Glucose 108 H 74-106 mg/dL Problem List/Assessment/Plan Problem List/Assessment/Plan #1 hypertensive emergency: adjust meds #2 acute on chronic diastolic heart failure: cont meds, dialysis #3 esrd: dialysis #4 hyperkalemia: dialysis today #5 obesity #6 acute resp failure #7 copd #8 cad #9 a fib with secondary hypercoagulable state: memo yadav #10 encephalopathy ?metabolic advance care planning- full code- time spent 19 mins Plan discussed with: Patient Date of Service: Feb 19, 2025 Billing Provider: FABIÁN SEGURA MD Common Visit Codes: 40364-[id number] INP/OBS CARE(HIGH) Secondary Visit Codes: [id number] CARE PLAN 30 MINUTES FABIÁN SEGURA MD Feb 19, 2025 10:19
[2025-02-19] MEDS ORDERED: ONDA-155 PO (14:24)
--- NOTE | 2025-02-19 18:46 | DVHINCON2 ---
Date of service: Feb 19, 2025 Reason for Consultation ESRD History of Present Illness 79 years old male with past medical history of ESRD on dialysis, dyslipidemia, hypertension, COPD, diabetes, CVA presented with chief complaints of shortness of breath associated with cough and sputum patient denies missing any dialysis he has a right chest wall dialysis catheter Recent admission for MRSA bacteremia Past Medical History As per HPI Allergies: Coded Allergies: NO KNOWN ALLERGIES (Unverified , 03/08/18) Home Meds Active Scripts Aspirin (Aspir-Low) 81 Mg Tab, 81 MG PO DAILY, #60 TAB Prov:GARLAND BLOUNT MD 03/17/24 Atorvastatin Calcium (ATORVASTATIN CALCIUM) 20 Mg Tab, 1 TAB PO DAILY, #90 TAB 1 Refill Prov:TALA GODINEZ MD 08/04/23 Reported Medications Ondansetron HCl (Ondansetron) 4 Mg Tab, 4 MG PO, TAB 02/19/25 Losartan Potassium (Losartan Potassium) 25 Mg Tab, 1 TAB PO BID for HTN , #90 TAB 1 Refill 01/17/25 Metoprolol Tartrate (LOPRESSOR TABLET) 50 Mg Tb, 1 TAB PO BID, #60 TAB 5 Refills 03/14/24 Pantoprazole Sodium Sesquihydr (Pantoprazole Sodium) 40 Mg Tab, 1 TAB PO DAILY 07/17/23 Apixaban Base (ELIQUIS) 2.5 Mg Tab, 1 TAB PO BID 07/17/23 Sevelamer Carbonate (Sevelamer Carbonate) 2.4 Gm Pow, 1 PKT PO TID 07/17/23 Current Medications Current Medications Medications (Trade) Dose Ordered Sig/Carmen Route PRN Reason Start Time Stop Time Status Last Admin Metoprolol Succinate (Toprol Xl) 50 mg DAILY PO 02/19/25 10:00 02/19/25 09:33 Albuterol (Ventolin Medneb) 2.5 mg Q6HPRN PRN NEB SHORTNESS OF BREATH 02/18/25 19:45 Ceftriaxone Sodium 50 ml @ 100 mls/hr DAILY@09 IV 02/19/25 09:00 02/19/25 10:16 DC 02/19/25 09:34 Azithromycin 250 ml @ 125 mls/hr DAILY IV 02/19/25 10:00 02/19/25 10:16 DC Apixaban (Eliquis) 2.5 mg BID PO 02/18/25 22:00 02/19/25 09:33 Sevelamer HCl (Renagel) 800 mg TIDWM PO 02/19/25 08:00 02/19/25 12:56 Atorvastatin Calcium (Lipitor) 20 mg HS PO 02/18/25 22:00 02/18/25 23:29 Ondansetron HCl (Zofran) 4 mg Q4HP PRN IV NAUSEA / VOMITING 02/18/25 19:45 Acetaminophen (Tylenol Tablet) 650 mg Q6HP PRN PO PAIN SCALE 1-3 OR TEMP>100.4 02/18/25 19:45 Hydralazine HCl (Apresoline Injection) 10 mg Q6HP PRN IV SBP>150 02/19/25 10:15 Pantoprazole Sodium (Protonix Tablet) 40 mg DAILY@0600 PO 02/20/25 06:00 Family History: Asthma G8 MOTHER, Onset:Unknown FH: cancer G8 FATHER Hypertension G8 FATHER Review of Systems As documented in HPI H&P Exam Vital Signs/I&O Vital Sign Date Time Temp Pulse Resp B/P (MAP) Pulse Ox O2 Delivery O2 Flow Rate FiO2 02/19/25 16:52 98.4 78 18 153/91 (111) 94 98.4 02/19/25 10:00 Nasal Cannula* 1 24 Intake and Output 02/18/25 02/19/25 18:59 06:59 Intake Total 250 ml Balance 250 ml IV Total 250 ml Physical Exam General-not in any distress HEENT-normocephalic, no icterus, no pallor, neck supple Respiratory-fair air entry bilateral, [id number] heard, no murmurs appreciated Abdominal-soft, nontender, nondistended Musculoskeletal-no pedal edema, no calf tenderness Genitourinary-deferred Neuro-awake alert oriented x3, Psychiatric-not agitated, cooperative, Labs/Diagnostic Data Labs/Diagnostic Data Laboratory Tests Test 02/19/25 08:12 02/18/25 19:03 02/18/25 16:36 02/18/25 15:34 Range/Units White Blood Count 10.0 9.2 4.4-10.8 10^3/uL Red Blood Count 3.45 L 3.35 L 4.5-5.90 10^6/uL Hemoglobin 10.9 L 10.7 L 13.5-17.5 g/dL Hematocrit 35.1 L 33.7 L 41.0-53.0 % Mean Corpuscular Volume 101.9 H 100.7 H 80.0-100.0 fL Mean Corpuscular Hemoglobin 31.7 31.9 28.0-32.0 pg Mean Corpuscular Hemoglobin Concent 31.1 L 31.7 L 32.0-36.0 g/dL Red Cell Distribution Width 17.4 H 17.0 H 11.8-14.3 % Platelet Count 241 240 140-450 10^3/uL Mean Platelet Volume 7.3 6.9 6.9-10.8 fL Neutrophils (%) (Auto) 84.4 H 76.1 37.0-80.0 % Lymphocytes (%) (Auto) 8.3 L 9.4 L 10.0-50.0 % Monocytes (%) (Auto) 6.1 4.6 0.0-12.0 % Eosinophils (%) (Auto) 0.8 8.7 H 0.0-7.0 % Basophils (%) (Auto) 0.4 1.2 0.0-2.0 % Neutrophils # (Auto) 8.4 7.0 1.6-8.6 10 ^3/uL Lymphocytes # (Auto) 0.8 0.9 0.4-5.4 10 ^3/uL Monocytes # (Auto) 0.6 0.4 0-1.3 10 ^3/uL Eosinophils # (Auto) 0.1 0.8 0-0.8 10 ^3/uL Basophils # (Auto) 0 0.1 0-0.2 10 ^3/uL Nucleated Red Blood Cells 0.2 0.0 % Sodium Level 138 140 136-145 mmol/L Potassium Level 5.2 H 3.9 3.5-5.1 mmol/L Chloride Level 100 100 98-107 mmol/L Carbon Dioxide Level 26 31 20-31 mmol/L Anion Gap 12 9 5-15 Blood Urea Nitrogen 27 H 25 H 9-23 mg/dL Creatinine 5.18 H 4.74 H 0.700-1.30 mg/dL Glomerular Filtration Rate Calc 11 12 >90 mL/min BUN/Creatinine Ratio 5.2 L 5.3 L 10.0-20.0 Serum Glucose 108 H 137 H 74-106 mg/dL Calcium Level 9.3 8.9 8.7-10.4 mg/dL Troponin I High Sensitivity 23 24 25 </=54 ng/L B-Type Natriuretic Peptide 310.52 0-100 pg/mL Assessment ESRD on dialysis Pneumonia Hyperkalemia Acute hypoxic respiratory failure CVA Diabetes Anemia Recommendations Dialysis will be done today Renally dose antibiotics We will monitor closely Blood cultures Charles with HD Plan discussed with: Patient MAHESH GIPSON MD Feb 19, 2025 18:46
[2025-02-19] MEDS: EPOETIN ALFA-EPBX 4,000 UNIT/ML VIAL SC ONE (21:14)
[2025-02-20] VITALS (9 sets, daily range): BP systolic 138–155; BP diastolic 70–91; PULSE 77–93; RESP 18–21; TEMP 97.4–98.2; O2SAT 93–97
[2025-02-20] MEDS: hydrALAZINE HCL 20 MG/ML VL IV PRN (00:52)
[2025-02-20] MEDS: PANTOPRAZOLE 40 MG TAB PO SCH (05:53)
--- NOTE | 2025-02-20 09:53 | DVHPN2 ---
Progress Note Date Seen: Feb 20, 2025 Medical Necessity Reason Pt with a Central, PICC or Fol: No Subjective Patient reports: No new complaints Review of Systems: HEENT:Normal, CVS:Normal, RESPIRATORY:Normal, GI:Normal, :Normal, MSK:Normal, NEURO:Normal Objective vital signs Vital Sign Date Time Temp Pulse Resp B/P (MAP) Pulse Ox O2 Delivery O2 Flow Rate FiO2 02/20/25 09:00 98.2 79 19 153/89 (110) 95 98.2 02/20/25 08:44 Room Air 1.0 02/20/25 08:44 24 Total Intake and Output 02/19/25 02/19/25 02/20/25 15:00 23:00 07:00 Intake Total 1600 ml 1200 ml Balance 1600 ml 1200 ml medications Current Medications Medications Dose Ordered Sig/Carmen Route Start Time Stop Time Status Last Admin Dose Admin Metoprolol Succinate 50 mg DAILY PO 02/19/25 10:00 02/19/25 09:33 50 MG Albuterol 2.5 mg Q6HPRN PRN NEB 02/18/25 19:45 Apixaban 2.5 mg BID PO 02/18/25 22:00 02/19/25 21:13 2.5 MG Sevelamer HCl 800 mg TIDWM PO 02/19/25 08:00 02/20/25 08:05 800 MG Atorvastatin Calcium 20 mg HS PO 02/18/25 22:00 02/19/25 21:13 20 MG Ondansetron HCl 4 mg Q4HP PRN IV 02/18/25 19:45 Acetaminophen 650 mg Q6HP PRN PO 02/18/25 19:45 Hydralazine HCl 10 mg Q6HP PRN IV 02/19/25 10:15 02/20/25 00:52 10 MG Pantoprazole Sodium 40 mg DAILY@0600 PO 02/20/25 06:00 02/20/25 05:53 40 MG Examination: GENERAL:Normal, HEENT:Normal, NECK:Normal, LUNGS:Normal, LUNGS:Abnormal (on oxygen), CVS:Normal, ABDOMEN:Normal, MSK:Normal, SKIN:Normal, NEURO:Normal, :Normal laboratory and microbiology Laboratory Tests 02/19/25 08:12 Test 02/19/25 08:12 Range/Units Serum Glucose 108 H 74-106 mg/dL Problem List/Assessment/Plan Problem List/Assessment/Plan #1 hypertensive emergency: adjust meds #2 acute on chronic diastolic heart failure: cont meds, dialysis #3 esrd: dialysis #4 hyperkalemia: dialysis today #5 obesity #6 acute resp failure #7 copd #8 cad #9 a fib with secondary hypercoagulable state: lopressor, eliquis #10 encephalopathy ?metabolic advance care planning- full code- time spent 19 mins Plan discussed with: Patient My Orders My Orders Orders - FABIÁN SEGURA MD Procedure Category Date Status Time Hydralazine Injection PHA 02/19/25 In Process (Apresoline Inject 10:15 Pantoprazole Tablet PHA 02/20/25 In Process (Protonix Tablet) 06:00 Complete Blood Count LAB 02/20/25 Logged 06:00 Comprehensive LAB 02/20/25 Logged Metabolic Panel 06:00 Chest Portable XY 02/20/25 Logged 06:00 Pt Request For Service PT 02/19/25 Verified 10:12 Vitamin B12 LAB 02/20/25 Logged 06:00 Thyroid Stimulating LAB 02/20/25 Logged Hormone 05:00 Mrsa Screen CRYSTAL 02/19/25 Uncollected 13:45 Date of Service: Feb 20, 2025 Billing Provider: FABIÁN SEGURA MD Common Visit Codes: [id number] INP/OBS CARE(HIGH) FABIÁN SEGURA MD Feb 20, 2025 09:53
[2025-02-20 10:31] LABS: Basophils # (auto) 0.1 10 ^3/uL (0-0.2); Basophils % (auto) 1.2 % (0.0-2.0); Eosinophils # (auto) 0.4 10 ^3/uL (0-0.8); Eosinophils % (auto) 6.7 % (0.0-7.0); Hemoglobin 9.7 g/dL (13.5-17.5); Lymphocytes # (auto) 0.7 10 ^3/uL (0.4-5.4); Mean Corpuscular Hemoglobin 31.4 pg (28.0-32.0); Mean Corpuscular Hgb Conc. 31.4 g/dL (32.0-36.0); Mean Corpuscular Volume 99.7 fL (80.0-100.0); Monocytes # (auto) 0.4 10 ^3/uL (0-1.3); Monocytes % (auto) 5.6 % (0.0-12.0); Neutrophils # (auto) 4.8 10 ^3/uL (1.6-8.6); Neutrophils % (auto) 75.5 % (37.0-80.0); Nucleated Red Blood Cells % 0.1 %; Platelet Count (auto) 205 10^3/uL (140-450); Red Cell Distribution Width 16.9 % (11.8-14.3); White Blood Cell 6.4 10^3/uL (4.4-10.8)
[2025-02-20] MEDS ORDERED: VANCOMYCIN PER PHARMACY 0 MG IV SCH (11:15)
[2025-02-20 11:17] LABS: Albumin 3.8 g/dL (3.2-4.8); Alkaline Phosphatase 78 U/L (46-116); Anion Gap 10 (5-15); Aspartate Aminotransferase 17 U/L (<34); BUN/Creatinine Ratio 4.8 (10.0-20.0); Blood Urea Nitrogen 13 mg/dL (9-23); Carbon Dioxide 29 mmol/L (20-31); Glucose 99 mg/dL (74-106); Total Protein 6.8 g/dL (5.7-8.2)
[2025-02-20 11:18] LABS: Bilirubin, Total 0.5 mg/dL (0.2-1.0)
[2025-02-20 11:19] LABS: Alanine Aminotransferase 9 U/L (7-40); Chloride 102 mmol/L (98-107); Potassium 3.2 mmol/L (3.5-5.1); Sodium 141 mmol/L (136-145)
[2025-02-20] MEDS: VANCOMYCIN 1.5GM/300ML 300 ML IV ONE (12:32)
--- NOTE | 2025-02-20 13:52 | DVH ---
CHEST RADIOGRAPH Indication: chf Technique: Single frontal view of the chest was obtained Comparison: XY CHEST PORTABLE on DOS: 02/18/25, XY CHEST XRAY 1 VIEW on DOS: 01/11/25, XY CHEST XRAY 1 V IEW on DOS: 03/13/24, XY CHEST PORTABLE on DOS: 08/02/23, XY CHEST PORTABLE on DOS: 12/04/22, XY CHEST P ORTABLE on DOS: 02/18/25 FINDINGS: Lines and Tubes: Removal hemodialysis catheter from the left and placed from the right internal jugul ar vein with the tip of the cavoatrial junction. Lungs: Increasing infiltrate left lower lobe and left perihilar area when compared to 01/11/2025 Pleura: No effusion. No pneumothorax. Cardiomediastinal contours: Unremarkable Bones: No acute osseous abnormality. IMPRESSION: 1. No interval change.
[2025-02-20] MEDS: SODIUM CHL 0.9% 1000 ML BAG XX ONE (16:15)
[2025-02-20] MEDS: POTASSIUM CHL 20 Meq TABLET PO ONE (17:02)
--- NOTE | 2025-02-20 18:18 | DVHPN2 ---
Progress Note Date Seen: Feb 20, 2025 Medical Necessity Reason Pt with a Central, PICC or Fol: No Subjective Patient reports: No new complaints Review of Systems: Deferred Objective vital signs Vital Sign Date Time Temp Pulse Resp B/P (MAP) Pulse Ox O2 Delivery O2 Flow Rate FiO2 02/20/25 16:52 97.4 82 21 142/72 (95) 96 97.4 02/20/25 10:00 Nasal Cannula 1.0 02/20/25 10:00 24 Total Intake and Output 02/19/25 02/19/25 02/20/25 15:00 23:00 07:00 Intake Total 1600 ml 1200 ml Balance 1600 ml 1200 ml medications Current Medications Medications Dose Ordered Sig/Carmen Route Start Time Stop Time Status Last Admin Dose Admin Metoprolol Succinate 50 mg DAILY PO 02/19/25 10:00 02/20/25 12:26 50 MG Albuterol 2.5 mg Q6HPRN PRN NEB 02/18/25 19:45 Apixaban 2.5 mg BID PO 02/18/25 22:00 02/20/25 12:26 2.5 MG Sevelamer HCl 800 mg TIDWM PO 02/19/25 08:00 02/20/25 18:06 800 MG Atorvastatin Calcium 20 mg HS PO 02/18/25 22:00 02/19/25 21:13 20 MG Ondansetron HCl 4 mg Q4HP PRN IV 02/18/25 19:45 Acetaminophen 650 mg Q6HP PRN PO 02/18/25 19:45 Hydralazine HCl 10 mg Q6HP PRN IV 02/19/25 10:15 02/20/25 00:52 10 MG Pantoprazole Sodium 40 mg DAILY@0600 PO 02/20/25 06:00 02/20/25 05:53 40 MG Vancomycin HCl 0 ml @ 0 mls/hr UD IV 02/20/25 11:15 Examination: GENERAL:Normal, ABDOMEN:Normal, MSK:Abnormal, SKIN:Abnormal, NEURO:Normal laboratory and microbiology Laboratory Tests 02/20/25 10:09 Test 02/20/25 10:09 Range/Units Serum Glucose 99 74-106 mg/dL Microbiology Date/Time Source Procedure Growth Status 02/19/25 14:21 Blood Blood Culture - Preliminary Resulted Problem List/Assessment/Plan Problem List/Assessment/Plan ESRD on dialysis sepsis Gram-positive organisms blood culture Pneumonia possible gram + Hyperkalemia Acute hypoxic respiratory failure CVA Diabetes Anemia recs Continue IV vancomycin If final cultures show MRSA need tunneled catheter removal line holiday for three days and then he will need new catheter prior to discharge Hemodialysis today Plan discussed with: Patient My Orders My Orders Orders - MAHESH GIPSON MD Procedure Category Date Status Time Hemodialysis [facility] 02/20/25 In Process Treatment Order 08:00 MAHESH GIPSON MD Feb 20, 2025 18:18
[2025-02-21] VITALS (11 sets, daily range): BP systolic 106–149; BP diastolic 64–80; PULSE 75–80; RESP 18–20; TEMP 97.4–97.7; O2SAT 91–99
--- NOTE | 2025-02-21 08:10 | DVHPN2 ---
Progress Note Date Seen: Feb 21, 2025 Medical Necessity Reason Pt with a Central, PICC or Fol: No Subjective Patient reports: No new complaints Review of Systems: Deferred Objective vital signs Vital Sign Date Time Temp Pulse Resp B/P (MAP) Pulse Ox O2 Delivery O2 Flow Rate FiO2 02/21/25 07:04 97 Nasal Cannula 1.0 02/21/25 07:04 24 02/21/25 05:10 164/89 02/21/25 05:00 97.6 80 18 97.6 Total Intake and Output 02/20/25 02/20/25 02/21/25 15:00 23:00 07:00 Intake Total 400 ml 1200 ml Balance 400 ml 1200 ml medications Current Medications Medications Dose Ordered Sig/Carmen Route Start Time Stop Time Status Last Admin Dose Admin Metoprolol Succinate 50 mg DAILY PO 02/19/25 10:00 02/20/25 12:26 50 MG Albuterol 2.5 mg Q6HPRN PRN NEB 02/18/25 19:45 Apixaban 2.5 mg BID PO 02/18/25 22:00 02/20/25 21:20 2.5 MG Sevelamer HCl 800 mg TIDWM PO 02/19/25 08:00 02/21/25 07:52 800 MG Atorvastatin Calcium 20 mg HS PO 02/18/25 22:00 02/20/25 21:20 20 MG Ondansetron HCl 4 mg Q4HP PRN IV 02/18/25 19:45 Acetaminophen 650 mg Q6HP PRN PO 02/18/25 19:45 Hydralazine HCl 10 mg Q6HP PRN IV 02/19/25 10:15 02/21/25 05:10 10 MG Pantoprazole Sodium 40 mg DAILY@0600 PO 02/20/25 06:00 02/21/25 05:01 40 MG Vancomycin HCl 0 ml @ 0 mls/hr UD IV 02/20/25 11:15 Examination: GENERAL:Normal, MSK:Abnormal, SKIN:Abnormal, NEURO:Normal laboratory and microbiology Laboratory Tests 02/21/25 05:21 02/20/25 10:09 Test 02/20/25 10:09 Range/Units Serum Glucose 99 74-106 mg/dL Microbiology Date/Time Source Procedure Growth Status 02/19/25 14:21 Blood Blood Culture - Preliminary Resulted Problem List/Assessment/Plan Problem List/Assessment/Plan ESRD on dialysis sepsis Gram-positive organisms blood culture Pneumonia possible gram + Hyperkalemia Acute hypoxic respiratory failure CVA Diabetes Anemia recs Continue IV vancomycin If final cultures show MRSA need tunneled catheter removal ,then line holiday for three days and then he will need new catheter prior to discharge Hemodialysis tomorrow Plan discussed with: Patient My Orders My Orders Orders - MAHESH GIPSON MD Procedure Category Date Status Time Hemodialysis [facility] 02/20/25 In Process Treatment Order 08:00 MAHESH GIPSON MD Feb 21, 2025 08:10
--- NOTE | 2025-02-21 10:02 | DVHPN2 ---
Progress Note Date Seen: Feb 21, 2025 Medical Necessity Reason Pt with a Central, PICC or Fol: No Subjective Patient reports: No new complaints Review of Systems: HEENT:Normal, CVS:Normal, RESPIRATORY:Normal, GI:Normal, :Normal, MSK:Normal, NEURO:Normal Objective vital signs Vital Sign Date Time Temp Pulse Resp B/P (MAP) Pulse Ox O2 Delivery O2 Flow Rate FiO2 02/21/25 09:29 79 149/80 02/21/25 09:00 97.6 18 97 97.6 02/21/25 07:04 Nasal Cannula 1.0 02/21/25 07:04 24 Total Intake and Output 02/20/25 02/20/25 02/21/25 15:00 23:00 07:00 Intake Total 400 ml 1200 ml Balance 400 ml 1200 ml medications Current Medications Medications Dose Ordered Sig/Carmen Route Start Time Stop Time Status Last Admin Dose Admin Metoprolol Succinate 50 mg DAILY PO 02/19/25 10:00 02/21/25 09:29 50 MG Albuterol 2.5 mg Q6HPRN PRN NEB 02/18/25 19:45 Apixaban 2.5 mg BID PO 02/18/25 22:00 02/21/25 09:28 2.5 MG Sevelamer HCl 800 mg TIDWM PO 02/19/25 08:00 02/21/25 07:52 800 MG Atorvastatin Calcium 20 mg HS PO 02/18/25 22:00 02/20/25 21:20 20 MG Ondansetron HCl 4 mg Q4HP PRN IV 02/18/25 19:45 Acetaminophen 650 mg Q6HP PRN PO 02/18/25 19:45 Hydralazine HCl 10 mg Q6HP PRN IV 02/19/25 10:15 02/21/25 05:10 10 MG Pantoprazole Sodium 40 mg DAILY@0600 PO 02/20/25 06:00 02/21/25 05:01 40 MG Vancomycin HCl 0 ml @ 0 mls/hr UD IV 02/20/25 11:15 Examination: GENERAL:Normal, HEENT:Normal, NECK:Normal, LUNGS:Normal, CVS:Normal, ABDOMEN:Normal, MSK:Normal, SKIN:Normal, NEURO:Normal, :Normal laboratory and microbiology Laboratory Tests 02/21/25 05:21 02/20/25 10:09 Test 02/20/25 10:09 Range/Units Serum Glucose 99 74-106 mg/dL Microbiology Date/Time Source Procedure Growth Status 02/19/25 14:21 Blood Blood Culture - Preliminary Resulted Problem List/Assessment/Plan Problem List/Assessment/Plan #1 hypertensive emergency: adjust meds #2 acute on chronic diastolic heart failure: cont meds, dialysis #3 esrd: dialysis #4 hyperkalemia: dialysis today #5 obesity #6 acute resp failure #7 copd #8 cad #9 a fib with secondary hypercoagulable state: lopressor, eliquis #10 encephalopathy ?metabolic #11 ?sepsis- gram positive - vanc, repeat cultures advance care planning- full code- time spent 19 mins Plan discussed with: Patient My Orders My Orders Orders - FABIÁN SEGURA MD Procedure Category Date Status Time Vancomycin Per PHA 02/20/25 In Process Pharmacy 11:15 Mrsa Screen CRYSTAL 02/20/25 In Process 15:45 Date of Service: Feb 21, 2025 Billing Provider: FABIÁN SEGURA MD Common Visit Codes: [id number] INP/OBS CARE(HIGH) FABIÁN SEGURA MD Feb 21, 2025 10:02
--- NOTE | 2025-02-21 10:37 | DVH ---
US CHEST ULTRASOUND, HISTORY: CHECK FLUID COMPARISON(S): None TECHNICAL DATA: Transverse and longitudinal images are obtained of the chest. FINDING: IMPRESSION(S): No right pleural effusion. Trace left pleural effusion.
[2025-02-21 11:40] LABS: Hepatitis A Ab IgM Negative; Hepatitis B Core IgM Negative (Negative); Hepatitis B Surface Antigen Negative (Negative); Hepatitis C Antibody Negative (Negative)
[2025-02-21] MEDS: NIFEdipine ER 30 MG TAB PO ONE (14:30)
[2025-02-21] MEDS ORDERED: VANCOMYCIN 500mg/100mL 100 ML IV ONE (20:00)
[2025-02-21] MEDS: MUPIROCIN 2% OINT 15gm or 22gm FOR MRSA NARES EACHNOSTRI SCH (21:48)
[2025-02-22] VITALS (11 sets, daily range): BP systolic 149–160; BP diastolic 79–94; PULSE 78–81; RESP 18–20; TEMP 97–97.7; O2SAT 94–99
[2025-02-22] MEDS: NIFEdipine ER 30 MG TAB PO SCH (09:42)
--- NOTE | 2025-02-22 10:08 | DVHPN2 ---
Progress Note Date Seen: Feb 22, 2025 Medical Necessity Reason Pt with a Central, PICC or Fol: No Subjective Patient reports: No new complaints Review of Systems: HEENT:Normal, CVS:Normal, RESPIRATORY:Normal, GI:Normal, :Normal, MSK:Normal, NEURO:Normal Objective vital signs Vital Sign Date Time Temp Pulse Resp B/P (MAP) Pulse Ox O2 Delivery O2 Flow Rate FiO2 02/22/25 09:28 97.5 81 20 149/79 (102) 96 97.5 02/22/25 05:42 Nasal Cannula* 1 24 Total Intake and Output 02/21/25 02/21/25 02/22/25 15:00 23:00 07:00 Intake Total 920 ml 0 ml Balance 920 ml 0 ml medications Current Medications Medications Dose Ordered Sig/Carmen Route Start Time Stop Time Status Last Admin Dose Admin Metoprolol Succinate 50 mg DAILY PO 02/19/25 10:00 02/21/25 09:29 50 MG Albuterol 2.5 mg Q6HPRN PRN NEB 02/18/25 19:45 Apixaban 2.5 mg BID PO 02/18/25 22:00 02/21/25 21:45 2.5 MG Sevelamer HCl 800 mg TIDWM PO 02/19/25 08:00 02/22/25 07:56 800 MG Atorvastatin Calcium 20 mg HS PO 02/18/25 22:00 02/21/25 21:45 20 MG Ondansetron HCl 4 mg Q4HP PRN IV 02/18/25 19:45 Acetaminophen 650 mg Q6HP PRN PO 02/18/25 19:45 Hydralazine HCl 10 mg Q6HP PRN IV 02/19/25 10:15 02/21/25 05:10 10 MG Pantoprazole Sodium 40 mg DAILY@0600 PO 02/20/25 06:00 02/22/25 06:04 40 MG Vancomycin HCl 0 ml @ 0 mls/hr UD IV 02/20/25 11:15 Mupirocin 1 applic BID EACHNOSTRI 02/21/25 22:00 02/26/25 21:59 02/22/25 09:42 1 APPLIC Nifedipine 60 mg DAILY PO 02/22/25 10:00 laboratory and microbiology Laboratory Tests 02/22/25 05:18 02/20/25 10:09 Test 02/20/25 10:09 Range/Units Serum Glucose 99 74-106 mg/dL Microbiology Date/Time Source Procedure Growth Status 02/20/25 15:45 Nose MRSA Screen - Final Methicillin Resistant S.aureus Complete 02/19/25 14:21 Blood Blood Culture - Preliminary Resulted Problem List/Assessment/Plan Problem List/Assessment/Plan ESRD on dialysis sepsis Gram-positive organisms blood culture Pneumonia possible gram + Hyperkalemia Acute hypoxic respiratory failure CVA Diabetes Anemia recs Continue IV vancomycin HD today blood cx staph remove tunneled cath,,line holiday until cx neg for 3days then will need new cath iv diuretics Plan discussed with: Patient My Orders My Orders Orders - MAHESH GIPSON MD Procedure Category Date Status Time Hemodialysis Orders ORDERS 02/21/25 Transmitted 13:07 * Radiologist Consult CONS 02/22/25 Transmitted 08:53 Communication Order ORDERS 02/22/25 Transmitted 08:53 PTPTT LAB 02/22/25 In Process 09:09 MAHESH GIPSON MD Feb 22, 2025 10:08
[2025-02-22 10:22] LABS: INR 1.06 (0.9-1.15); Partial Thromboplastin Time 29.1 SEC (24.5-34.5); Prothrombin Time 11.2 sec (9.3-11.8)
--- NOTE | 2025-02-22 10:24 | DVHPN2 ---
Progress Note Date Seen: Feb 22, 2025 Medical Necessity Reason Pt with a Central, PICC or Fol: No Subjective Patient reports: No new complaints Review of Systems: HEENT:Normal, CVS:Normal, RESPIRATORY:Normal, GI:Normal, :Normal, MSK:Normal, NEURO:Normal Objective vital signs Vital Sign Date Time Temp Pulse Resp B/P (MAP) Pulse Ox O2 Delivery O2 Flow Rate FiO2 02/22/25 09:28 97.5 81 20 149/79 (102) 96 97.5 02/22/25 05:42 Nasal Cannula* 1 24 Total Intake and Output 02/21/25 02/21/25 02/22/25 15:00 23:00 07:00 Intake Total 920 ml 0 ml Balance 920 ml 0 ml medications Current Medications Medications Dose Ordered Sig/Carmen Route Start Time Stop Time Status Last Admin Dose Admin Metoprolol Succinate 50 mg DAILY PO 02/19/25 10:00 02/21/25 09:29 50 MG Albuterol 2.5 mg Q6HPRN PRN NEB 02/18/25 19:45 Apixaban 2.5 mg BID PO 02/18/25 22:00 02/21/25 21:45 2.5 MG Sevelamer HCl 800 mg TIDWM PO 02/19/25 08:00 02/22/25 07:56 800 MG Atorvastatin Calcium 20 mg HS PO 02/18/25 22:00 02/21/25 21:45 20 MG Ondansetron HCl 4 mg Q4HP PRN IV 02/18/25 19:45 Acetaminophen 650 mg Q6HP PRN PO 02/18/25 19:45 Hydralazine HCl 10 mg Q6HP PRN IV 02/19/25 10:15 02/21/25 05:10 10 MG Pantoprazole Sodium 40 mg DAILY@0600 PO 02/20/25 06:00 02/22/25 06:04 40 MG Vancomycin HCl 0 ml @ 0 mls/hr UD IV 02/20/25 11:15 Mupirocin 1 applic BID EACHNOSTRI 02/21/25 22:00 02/26/25 21:59 02/22/25 09:42 1 APPLIC Nifedipine 60 mg DAILY PO 02/22/25 10:00 Examination: GENERAL:Normal, HEENT:Normal, NECK:Normal, LUNGS:Normal, CVS:Normal, ABDOMEN:Normal, MSK:Normal, SKIN:Normal, NEURO:Normal, :Normal laboratory and microbiology Laboratory Tests 02/22/25 05:18 02/20/25 10:09 Test 02/20/25 10:09 Range/Units Serum Glucose 99 74-106 mg/dL Microbiology Date/Time Source Procedure Growth Status 02/20/25 15:45 Nose MRSA Screen - Final Methicillin Resistant S.aureus Complete 02/19/25 14:21 Blood Blood Culture - Preliminary Resulted Problem List/Assessment/Plan Problem List/Assessment/Plan #1 hypertensive emergency: adjust meds #2 acute on chronic diastolic heart failure: cont meds, dialysis #3 esrd: dialysis #4 hyperkalemia: dialysis today #5 obesity #6 acute resp failure #7 copd #8 cad #9 a fib with secondary hypercoagulable state: memo yadav #10 encephalopathy ?metabolic #11 ?sepsis/line infection: new dialysis line once bacteremia cleared- gram positive - vanc, repeat cultures advance care planning- full code- time spent 19 mins Plan discussed with: Patient My Orders My Orders Orders - FABIÁN SEGURA MD Procedure Category Date Status Time Mupirocin 2% Oint PHA 02/21/25 In Process Mrsa Nares (Bactroban 22:00 Nifedipine Er PHA 02/22/25 In Process (Procardia Xl 10:00 Date of Service: Feb 22, 2025 Billing Provider: FABIÁN SEGURA MD Common Visit Codes: [id number] INP/OBS CARE(HIGH) FABIÁN SEGURA MD Feb 22, 2025 10:24
[2025-02-23] VITALS (13 sets, daily range): BP systolic 134–167; BP diastolic 80–96; PULSE 78–106; RESP 18–22; TEMP 97–98.2; O2SAT 27–100
--- NOTE | 2025-02-23 09:12 | DVHPN2 ---
Progress Note Date Seen: Feb 23, 2025 Medical Necessity Reason Pt with a Central, PICC or Fol: No Subjective Patient reports: No new complaints Other Systems: Patient seen and examined by myself today in follow-up Objective vital signs Vital Sign Date Time Temp Pulse Resp B/P (MAP) Pulse Ox O2 Delivery O2 Flow Rate FiO2 02/23/25 05:00 97.2 79 19 143/81 (101) 100 97.2 02/22/25 20:00 Nasal Cannula* 1 24 Total Intake and Output 02/22/25 02/22/25 02/23/25 15:00 23:00 07:00 Intake Total 800 ml 100 ml Balance 800 ml 100 ml medications Current Medications Medications Dose Ordered Sig/Carmen Route Start Time Stop Time Status Last Admin Dose Admin Metoprolol Succinate 50 mg DAILY PO 02/19/25 10:00 02/21/25 09:29 50 MG Albuterol 2.5 mg Q6HPRN PRN NEB 02/18/25 19:45 Cancel Sevelamer HCl 800 mg TIDWM PO 02/19/25 08:00 02/22/25 07:56 800 MG Atorvastatin Calcium 20 mg HS PO 02/18/25 22:00 02/22/25 21:22 20 MG Ondansetron HCl 4 mg Q4HP PRN IV 02/18/25 19:45 Acetaminophen 650 mg Q6HP PRN PO 02/18/25 19:45 Hydralazine HCl 10 mg Q6HP PRN IV 02/19/25 10:15 02/21/25 05:10 10 MG Pantoprazole Sodium 40 mg DAILY@0600 PO 02/20/25 06:00 02/22/25 06:04 40 MG Vancomycin HCl 0 ml @ 0 mls/hr UD IV 02/20/25 11:15 Mupirocin 1 applic BID EACHNOSTRI 02/21/25 22:00 02/26/25 21:59 02/22/25 21:23 1 APPLIC Nifedipine 60 mg DAILY PO 02/22/25 10:00 Examination: LUNGS:Normal, CVS:Normal, MSK:Normal laboratory and microbiology Laboratory Tests 02/22/25 05:18 02/20/25 10:09 Test 02/20/25 10:09 Range/Units Serum Glucose 99 74-106 mg/dL Microbiology Date/Time Source Procedure Growth Status 02/21/25 10:26 Blood Blood Culture - Preliminary NO GROWTH AFTER 24 HOURS OF INCUBATION. Resulted 02/20/25 15:45 Nose MRSA Screen - Final Methicillin Resistant S.aureus Complete Problem List/Assessment/Plan Problem List/Assessment/Plan ESRD on dialysis MRSA bacteremia Pneumonia possible gram + Hyperkalemia Acute hypoxic respiratory failure CVA Diabetes Anemia chronic kidney disease Recommendations Catheter exchange today by Radiology Blood cultures negative since 02/21 Hemodialysis tomorrow Epogen [id number] subQ with hemodialysis Fluid restriction Renal diet Blood pressure control We will continue to follow up Plan discussed with: Patient Dietary Evaluation Review Comments: Follow Renal Standard Soft Diet Monitor PO itnake to meet his needs, avoid fast wt loss and uremic syndrome Expected Outcomes/Goals: recovered PNA TISH CHOW MD Feb 23, 2025 09:12
[2025-02-23] MEDS: MIDAZOLAM HCL 2MG/2ML 2ml VIAL (1mg/ml) ONE (10:03)
[2025-02-23] MEDS: fentaNYL CITRATE 100 MCG/2 ML VL ONE (11:14)
[2025-02-23] MEDS: HEPARIN SODIUM (PORCINE) 5000 UNITS/ML 1ML VIAL ONE (11:16)
[2025-02-23] MEDS: LIDOCAINE 2%HCL (LOCAL ANESTH.) INJ 20ML MDV ONE (11:18)
--- NOTE | 2025-02-23 11:24 | DVH ---
PROCEDURE: Tunneled central venous catheter exchange Procedural Personnel Attending physician(s): Ash Christopher Fellow physician(s): None Resident physician(s): None Advanced practice provider(s): None Procedure Date (//yyyy): 02/23/2025 Pre-procedure diagnosis: Bacteremia, resolved Post-procedure diagnosis: same Indication: Other-resolution of bacteremia with need for maintenance of central venous hemodialysis a ccess Additional clinical history: None Complications: No immediate complications. IMPRESSION: Right-sided internal jugular tunneled hemodialysis catheter exchange, with its tip in the expected lo cation of the superior vena cava. Plan: The catheter may be used immediately. PROCEDURE SUMMARY: - Tunneled central venous catheter exchange with fluoroscopic guidance - Additional procedure(s): None PROCEDURE DETAILS: Pre-procedure Consent: Informed consent for the procedure including risks, benefits and alternatives was obtained a nd time-out was performed prior to the procedure. Preparation: The site was prepared and draped using maximal sterile barrier technique including cutan eous antisepsis. Anesthesia/sedation Level of anesthesia/sedation: Moderate sedation (conscious sedation) Anesthesia/sedation administered by: Independent trained observer under attending supervision with co ntinuous monitoring of the patient s level of consciousness and physiologic status Total intra-service sedation time (minutes): 30 Venography Indication for venography: None Catheter tip position for venography: Not applicable Findings: Not applicable Catheter exchange A wire was passed through the indwelling tunneled central venous catheter and into the central veins. The catheter was removed, and a new catheter was advanced under fluoroscopic guidance. Catheter tip location was fluoroscopically verified and a permanent image was stored. Catheter placed: Duramax Catheter size (Polish): 15.5 Lumens: Dual-lumen Power injectable: Yes Catheter tip: superior vena cava Catheter flush: Heparin (1000 units/mL) Closure The catheter was secured. A sterile dressing was applied. Catheter securement technique: Non-absorbable suture Contrast Contrast agent: None Contrast volume (mL): 0 Radiation Dose Fluoroscopy time (minutes): 0.5 Reference air kerma (mGy): 3 Additional Details Additional description of procedure: None Registry event: V/3/g Device used: None Equipment details: None Unique Device Identifiers: Not available Specimens removed: None Estimated blood loss (mL): Less than 10 Standardized report: [email or web address] Attestation Signer name: Ash Christopher I attest that I was present for the entire procedure. I reviewed the stored images and agree with the report as written.
--- NOTE | 2025-02-23 12:26 | DVHPN2 ---
Subjective Denies any symptoms. Reviewed: Care Plan, H&P, Labs, Medications Changes from previous H/P or p: No Changes General: Per HPI Objective Vitals Vital Signs Date Time Temp Pulse Resp B/P (MAP) Pulse Ox O2 Delivery O2 Flow Rate FiO2 02/23/25 11:30 85 22 145/91 (109) 27 02/23/25 10:00 Nasal Cannula 1.0 02/23/25 10:00 24 02/23/25 09:00 97.8 97.8 Intake/Output Intake and Output 02/23/25 07:00 Intake Total 900 ml Balance 900 ml Intake Oral 900 ml # Voids 1 General Appearance: Alert, Oriented X3, Cooperative, No acute distress HEENT: Atraumatic, PERRLA Cardiovascular: Normal S1, Normal S2 Abdomen: Normal bowel sounds, Soft, No tenderness, No hepatospenomegaly Musculoskeletal: Normal sensory function, Normal motor function Extremities: No clubbing, No cyanosis Neuro: Normal gait, Normal speech Skin: Dry, Intact Psych/Mental Status: Mental status NL, Mood NL Medications Current Medications Medications Dose Ordered Sig/Carmen Route Start Time Stop Time Status Last Admin Dose Admin Metoprolol Succinate 50 mg DAILY PO 02/19/25 10:00 02/21/25 09:29 50 MG Albuterol 2.5 mg Q6HPRN PRN NEB 02/18/25 19:45 Cancel Sevelamer HCl 800 mg TIDWM PO 02/19/25 08:00 02/22/25 07:56 800 MG Atorvastatin Calcium 20 mg HS PO 02/18/25 22:00 02/22/25 21:22 20 MG Ondansetron HCl 4 mg Q4HP PRN IV 02/18/25 19:45 Acetaminophen 650 mg Q6HP PRN PO 02/18/25 19:45 Hydralazine HCl 10 mg Q6HP PRN IV 02/19/25 10:15 02/21/25 05:10 10 MG Pantoprazole Sodium 40 mg DAILY@0600 PO 02/20/25 06:00 02/22/25 06:04 40 MG Vancomycin HCl 0 ml @ 0 mls/hr UD IV 02/20/25 11:15 Mupirocin 1 applic BID EACHNOSTRI 02/21/25 22:00 02/26/25 21:59 02/22/25 21:23 1 APPLIC Nifedipine 60 mg DAILY PO 02/22/25 10:00 Laboratory Results Laboratory Tests 02/20/25 10:09 02/22/25 05:18 Microbiology Microbiology Date/Time Source Procedure Growth Status 02/21/25 10:26 Blood Blood Culture - Preliminary NO GROWTH AFTER 48 HOURS OF INCUBATION. 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 Patient without any growth and repeat blood cultures -nephrology consultation: Plans for HD tomorrow -continue antihypertensives -bronchodilators as needed -continue current anticoagulation -repeat labs in a.m. -reassess for discharge once blood cultures has been negative for growth. Total time spent with patient discussing and formulating plan of care: 35 minutes. This medical document was created using an electronic medical record system with [employer] dictation system. Although this document has been carefully reviewed, there may still be some phonetic and typographical errors. These areas are purely typographical due to imperfections of the software programs, and do not reflect any compromise in the patient's medical care. Plan discussed with: Patient, Other (RN) My Orders Orders - ESPERANZA BARRERA NP Procedure Category Date Status Time Insertion Of Venous XY 02/23/25 Resulted Cath 10:52 Date of Service: Feb 23, 2025 Billing Provider: ESPERANZA BARRERA NP Common Visit Codes: [id number] INP/OBS CARE(HIGH) ESPERANZA BARRERA NP Feb 23, 2025 12:26
[2025-02-23] MEDS: LIDOCAINE 2%HCL (LOCAL ANESTH.) INJ 10ml MDV ONE (15:30)
[2025-02-23] MEDS: VANCOMYCIN 500mg/100mL 100 ML IV ONE (18:41)
[2025-02-24] VITALS (8 sets, daily range): BP systolic 102–140; BP diastolic 51–81; PULSE 74–79; RESP 17–21; TEMP 96.6–98.8; O2SAT 98–100
[2025-02-24 05:49] LABS: Basophils # (auto) 0.1 10 ^3/uL (0-0.2); Basophils % (auto) 1.1 % (0.0-2.0); Eosinophils # (auto) 0.5 10 ^3/uL (0-0.8); Eosinophils % (auto) 8.5 % (0.0-7.0); Hematocrit 33.2 % (41.0-53.0); Hemoglobin 10.3 g/dL (13.5-17.5); Lymphocytes # (auto) 0.8 10 ^3/uL (0.4-5.4); Mean Corpuscular Hemoglobin 31.2 pg (28.0-32.0); Mean Corpuscular Hgb Conc. 30.9 g/dL (32.0-36.0); Mean Corpuscular Volume 100.8 fL (80.0-100.0); Monocytes # (auto) 0.6 10 ^3/uL (0-1.3); Monocytes % (auto) 8.8 % (0.0-12.0); Neutrophils # (auto) 4.5 10 ^3/uL (1.6-8.6); Neutrophils % (auto) 69.6 % (37.0-80.0); Nucleated Red Blood Cells % 0.1 %; Platelet Count (auto) 191 10^3/uL (140-450); Red Blood Cells 3.29 10^6/uL (4.5-5.90); Red Cell Distribution Width 17.1 % (11.8-14.3); White Blood Cell 6.5 10^3/uL (4.4-10.8)
[2025-02-24 05:59] LABS: Chloride 103 mmol/L (98-107); Potassium 4.3 mmol/L (3.5-5.1); Sodium 143 mmol/L (136-145)
[2025-02-24 06:00] LABS: Anion Gap 10 (5-15); Carbon Dioxide 30 mmol/L (20-31)
[2025-02-24 06:01] LABS: Calcium 9.2 mg/dL (8.7-10.4)
[2025-02-24 06:05] LABS: BUN/Creatinine Ratio 7.4 (10.0-20.0)
[2025-02-24 06:07] LABS: Blood Urea Nitrogen 42 mg/dL (9-23); Glucose 109 mg/dL (74-106)
[2025-02-24] MEDS ORDERED: SODIUM CHL 0.9% 1000 ML BAG XX ONE (07:00)
--- NOTE | 2025-02-24 09:12 | DVHPN2 ---
Progress Note Date Seen: Feb 24, 2025 Medical Necessity Reason Pt with a Central, PICC or Fol: No Subjective Patient reports: No new complaints Objective vital signs Vital Sign Date Time Temp Pulse Resp B/P (MAP) Pulse Ox O2 Delivery O2 Flow Rate FiO2 02/24/25 08:34 128/76 02/24/25 08:34 79 02/24/25 08:32 98.8 21 100 98.8 02/24/25 08:30 Nasal Cannula* 2 28 Total Intake and Output 02/23/25 02/23/25 02/24/25 15:00 23:00 07:00 Intake Total 625 ml 100 ml Balance 625 ml 100 ml medications Current Medications Medications Dose Ordered Sig/Carmen Route Start Time Stop Time Status Last Admin Dose Admin Metoprolol Succinate 50 mg DAILY PO 02/19/25 10:00 02/24/25 08:34 50 MG Albuterol 2.5 mg Q6HPRN PRN NEB 02/18/25 19:45 Cancel Sevelamer HCl 800 mg TIDWM PO 02/19/25 08:00 02/24/25 08:25 800 MG Atorvastatin Calcium 20 mg HS PO 02/18/25 22:00 02/23/25 22:18 20 MG Ondansetron HCl 4 mg Q4HP PRN IV 02/18/25 19:45 Acetaminophen 650 mg Q6HP PRN PO 02/18/25 19:45 Hydralazine HCl 10 mg Q6HP PRN IV 02/19/25 10:15 02/21/25 05:10 10 MG Pantoprazole Sodium 40 mg DAILY@0600 PO 02/20/25 06:00 02/24/25 05:53 40 MG Vancomycin HCl 0 ml @ 0 mls/hr UD IV 02/20/25 11:15 Mupirocin 1 applic BID EACHNOSTRI 02/21/25 22:00 02/26/25 21:59 02/24/25 08:35 1 APPLIC Nifedipine 60 mg DAILY PO 02/22/25 10:00 02/24/25 08:34 60 MG laboratory and microbiology Laboratory Tests 02/24/25 05:14 Test 02/24/25 05:14 Range/Units Serum Glucose 109 H 74-106 mg/dL Microbiology Date/Time Source Procedure Growth Status 02/23/25 06:50 Blood Blood Culture - Preliminary NO GROWTH AFTER 24 HOURS OF INCUBATION. Resulted 02/20/25 15:45 Nose MRSA Screen - Final Methicillin Resistant S.aureus Complete Problem List/Assessment/Plan Problem List/Assessment/Plan ESRD on dialysis MRSA bacteremia Pneumonia possible gram + Hyperkalemia Acute hypoxic respiratory failure CVA Diabetes Anemia chronic kidney disease Recommendations s/p Catheter exchange by Radiology 02/23 Blood cultures negative since 02/21 Hemodialysis tomorrow Epogen 32622 subQ with hemodialysis Fluid restriction Renal diet IV antibiotics Blood pressure control We will continue to follow up Plan discussed with: Patient My Orders My Orders Orders - TISH CHOW MD Procedure Category Date Status Time Hemodialysis Orders ORDERS 02/24/25 Transmitted 07:00 Dialysis Nursing LULY 02/24/25 In Process Message 07:00 Document Fluid Input LULY 02/24/25 In Process And Outpu 07:00 Epoetin Carlos-Epbx PHA 02/24/25 In Process (Retacrit) 21:00 Dietary Evaluation Review Comments: Follow Renal Standard Soft Diet Monitor PO itnake to meet his needs, avoid fast wt loss and uremic syndrome Expected Outcomes/Goals: recovered PNA TISH CHOW MD Feb 24, 2025 09:12
--- NOTE | 2025-02-24 11:29 | DVHPN2 ---
Subjective Denies any symptoms. Reviewed: Care Plan, H&P, Labs, Medications Changes from previous H/P or p: No Changes General: Per HPI Objective Vitals Vital Signs Date Time Temp Pulse Resp B/P (MAP) Pulse Ox O2 Delivery O2 Flow Rate FiO2 02/24/25 08:34 128/76 02/24/25 08:34 79 02/24/25 08:32 98.8 21 100 98.8 02/24/25 08:30 Nasal Cannula* 2 28 Intake/Output Intake and Output 02/24/25 07:00 Intake Total 725 ml Balance 725 ml Intake Oral 725 ml # Voids 3 General Appearance: Alert, Oriented X3, Cooperative, No acute distress HEENT: Atraumatic, PERRLA Lungs: Normal air movement Chest/Breasts: Other (HD catheter site benign) Cardiovascular: Normal S1, Normal S2 Abdomen: Normal bowel sounds, Soft, No tenderness, No hepatospenomegaly Musculoskeletal: Normal sensory function, Normal motor function Extremities: No clubbing, No cyanosis Neuro: Normal gait, Normal speech Skin: Dry, Intact Psych/Mental Status: Mental status NL, Mood NL Medications Current Medications Medications Dose Ordered Sig/Carmen Route Start Time Stop Time Status Last Admin Dose Admin Albuterol 2.5 mg Q6HPRN PRN NEB 02/18/25 19:45 Cancel Sevelamer HCl 800 mg TIDWM PO 02/19/25 08:00 02/24/25 08:25 800 MG Atorvastatin Calcium 20 mg HS PO 02/18/25 22:00 02/23/25 22:18 20 MG Ondansetron HCl 4 mg Q4HP PRN IV 02/18/25 19:45 Acetaminophen 650 mg Q6HP PRN PO 02/18/25 19:45 Hydralazine HCl 10 mg Q6HP PRN IV 02/19/25 10:15 02/21/25 05:10 10 MG Pantoprazole Sodium 40 mg DAILY@0600 PO 02/20/25 06:00 02/24/25 05:53 40 MG Vancomycin HCl 0 ml @ 0 mls/hr UD IV 02/20/25 11:15 Mupirocin 1 applic BID EACHNOSTRI 02/21/25 22:00 02/26/25 21:59 02/24/25 08:35 1 APPLIC Metoprolol Succinate 50 mg DAILY PO 02/25/25 10:00 Nifedipine 30 mg DAILY PO 02/25/25 10:00 Laboratory Results Laboratory Tests 02/24/25 05:14 Chemistry Test 02/24/25 05:14 Calcium Level 9.2 mg/dL (8.7-10.4) Microbiology Microbiology Date/Time Source Procedure Growth Status 02/23/25 06:50 Blood Blood Culture - Preliminary NO GROWTH AFTER 24 HOURS OF INCUBATION. Resulted 02/20/25 15:45 Nose MRSA Screen - Final Methicillin Resistant S.aureus Complete Labs and/or images reviewed: Labs reviewed by me, Image(s) reviewed by me Assessment/Plan Assessment/Plan Impression: -sepsis secondary to infected dialysis catheter -end-stage renal disease with hemodialysis -hypertensive urgency -hyperkalemia -obesity -acute respiratory failure -COPD -history of CAD -AFib -metabolic encephalopathy Plan: Events: No events overnight -nephrology consultation: Plans for HD tomorrow -continue antihypertensives -bronchodilators as needed -continue current anticoagulation -repeat labs in a.m. Total time spent with patient discussing and formulating plan of care: 35 minutes. This medical document was created using an electronic medical record system with [employer] dictation system. Although this document has been carefully reviewed, there may still be some phonetic and typographical errors. These areas are purely typographical due to imperfections of the software programs, and do not reflect any compromise in the patient's medical care. Plan discussed with: Patient, Other (RN) Date of Service: Feb 24, 2025 Billing Provider: ESPERANZA BARRERA NP Common Visit Codes: [id number] INP/OBS CARE(HIGH) ESPERANZA BARRERA NP Feb 24, 2025 11:29
[2025-02-24] MEDS ORDERED: EPOETIN ALFA-EPBX 10,000 UNIT/1ML VIAL SC ONE (21:00)
[2025-02-25] VITALS (8 sets, daily range): BP systolic 111–151; BP diastolic 61–88; PULSE 73–80; RESP 17–19; TEMP 36.6; O2SAT 96–100
[2025-02-25] MEDS: NIFEdipine ER 30 MG TAB PO SCH (10:01)
[2025-02-25] MEDS: METOPROLOL SUCCINATE XL 50 MG TAB PO SCH (10:01)
--- NOTE | 2025-02-25 10:31 | DVHPN2 ---
Progress Note Date Seen: Feb 25, 2025 Medical Necessity Reason Pt with a Central, PICC or Fol: No Subjective Patient reports: No new complaints Other Systems: Patient seen and examined by myself today in follow-up Patient examined hemodialysis, blood pressure stable Objective vital signs Vital Sign Date Time Temp Pulse Resp B/P (MAP) Pulse Ox O2 Delivery O2 Flow Rate FiO2 02/25/25 10:01 150/84 02/25/25 10:01 79 02/25/25 10:00 100 Nasal Cannula 3.0 02/25/25 10:00 32 02/25/25 08:35 97.9 17 97.9 Total Intake and Output 02/24/25 02/24/25 02/25/25 15:00 23:00 07:00 Intake Total 60 ml 960 ml 275 ml Balance 60 ml 960 ml 275 ml medications Current Medications Medications Dose Ordered Sig/Carmen Route Start Time Stop Time Status Last Admin Dose Admin Albuterol 2.5 mg Q6HPRN PRN NEB 02/18/25 19:45 Cancel Sevelamer HCl 800 mg TIDWM PO 02/19/25 08:00 02/25/25 10:01 800 MG Atorvastatin Calcium 20 mg HS PO 02/18/25 22:00 02/24/25 21:23 20 MG Ondansetron HCl 4 mg Q4HP PRN IV 02/18/25 19:45 Acetaminophen 650 mg Q6HP PRN PO 02/18/25 19:45 Hydralazine HCl 10 mg Q6HP PRN IV 02/19/25 10:15 02/21/25 05:10 10 MG Pantoprazole Sodium 40 mg DAILY@0600 PO 02/20/25 06:00 02/25/25 05:45 40 MG Vancomycin HCl 0 ml @ 0 mls/hr UD IV 02/20/25 11:15 Mupirocin 1 applic BID EACHNOSTRI 02/21/25 22:00 02/26/25 21:59 02/25/25 10:02 1 APPLIC Metoprolol Succinate 50 mg DAILY PO 02/25/25 10:00 02/25/25 10:01 50 MG Nifedipine 30 mg DAILY PO 02/25/25 10:00 02/25/25 10:01 30 MG Examination: LUNGS:Normal, CVS:Normal, MSK:Normal laboratory and microbiology Laboratory Tests 02/24/25 05:14 Test 02/24/25 05:14 Range/Units Serum Glucose 109 H 74-106 mg/dL Microbiology Date/Time Source Procedure Growth Status 02/23/25 06:50 Blood Blood Culture - Preliminary NO GROWTH AFTER 48 HOURS OF INCUBATION. Resulted 02/20/25 15:45 Nose MRSA Screen - Final Methicillin Resistant S.aureus Complete Problem List/Assessment/Plan Problem List/Assessment/Plan ESRD on dialysis MRSA bacteremia Pneumonia possible gram + Hyperkalemia Acute hypoxic respiratory failure CVA Diabetes Anemia chronic kidney disease Recommendations Continue with UF to 3 L as tolerated s/p Catheter exchange by Radiology 02/23 Blood cultures negative since 02/21 Epogen 83619 subQ with hemodialysis Fluid restriction Renal diet IV antibiotics Blood pressure control We will continue to follow up Plan discussed with: Patient Dietary Evaluation Review Comments: Follow Renal Standard Soft Diet Monitor PO itnake to meet his needs, avoid fast wt loss and uremic syndrome Expected Outcomes/Goals: recovered PNA TISH CHOW MD Feb 25, 2025 10:31
[2025-02-25] MEDS ORDERED: AUG875T PO (11:28)
--- NOTE | 2025-02-25 11:32 | DVHDS2 ---
Discharge Summary Date of Admission Feb 18, 2025 at 19:37 Date of Discharge: Feb 25, 2025 Admitting Diagnosis Community-acquired pneumonia Labs/Diagnostic Data: Laboratory Results Test 02/24/25 05:14 02/23/25 06:50 02/22/25 09:58 02/20/25 10:09 White Blood Count 6.5 10^3/uL (4.4-10.8) Red Blood Count 3.29 10^6/uL (4.5-5.90) Hemoglobin 10.3 g/dL (13.5-17.5) Hematocrit 33.2 % (41.0-53.0) Mean Corpuscular Volume 100.8 fL (80.0-100.0) Mean Corpuscular Hemoglobin 31.2 pg (28.0-32.0) Mean Corpuscular Hemoglobin Concent 30.9 g/dL (32.0-36.0) Red Cell Distribution Width 17.1 % (11.8-14.3) Platelet Count 191 10^3/uL (140-450) Mean Platelet Volume 7.2 fL (6.9-10.8) Neutrophils (%) (Auto) 69.6 % (37.0-80.0) Lymphocytes (%) (Auto) 12.0 % (10.0-50.0) Monocytes (%) (Auto) 8.8 % (0.0-12.0) Eosinophils (%) (Auto) 8.5 % (0.0-7.0) Basophils (%) (Auto) 1.1 % (0.0-2.0) Neutrophils # (Auto) 4.5 10 ^3/uL (1.6-8.6) Lymphocytes # (Auto) 0.8 10 ^3/uL (0.4-5.4) Monocytes # (Auto) 0.6 10 ^3/uL (0-1.3) Eosinophils # (Auto) 0.5 10 ^3/uL (0-0.8) Basophils # (Auto) 0.1 10 ^3/uL (0-0.2) Nucleated Red Blood Cells 0.1 % Sodium Level 143 mmol/L (136-145) Potassium Level 4.3 mmol/L (3.5-5.1) Chloride Level 103 mmol/L (98-107) Carbon Dioxide Level 30 mmol/L (20-31) Anion Gap 10 (5-15) Blood Urea Nitrogen 42 mg/dL (9-23) Creatinine 5.66 mg/dL (0.700-1.30) Glomerular Filtration Rate Calc 10 mL/min (>90) BUN/Creatinine Ratio 7.4 (10.0-20.0) Serum Glucose 109 mg/dL (74-106) Calcium Level 9.2 mg/dL (8.7-10.4) Random Vancomycin Level 14.1 ug/mL (5-10) Prothrombin Time 11.2 sec (9.3-11.8) Prothrombin Time INR 1.06 (0.9-1.15) Activated Partial Thromboplast Time 29.1 SEC (24.5-34.5) Total Bilirubin 0.5 mg/dL (0.2-1.0) Aspartate Amino Transferase (AST) 17 U/L (<34) Alanine Aminotransferase (ALT) 9 U/L (7-40) Alkaline Phosphatase 78 U/L (46-116) Total Protein 6.8 g/dL (5.7-8.2) Albumin 3.8 g/dL (3.2-4.8) Vitamin B12 Level 974 pg/mL (211-911) Thyroid Stimulating Hormone (TSH) 3.84 uIU/mL (0.55-4.78) Test 02/19/25 08:12 02/18/25 19:03 02/18/25 15:34 Hepatitis A IgM Antibody Negative Hepatitis B Surface Antigen Negative (Negative) Hepatitis B Core IgM Antibody Negative (Negative) Hepatitis C Antibody Negative (Negative) Troponin I High Sensitivity 23 ng/L (</=54) B-Type Natriuretic Peptide 310.52 pg/mL (0-100) Other Laboratory Tests 02/24/25 05:14 Brief Hx & Hospital Course: History of Present Illness 79-year-old male presents for evaluation of shortness for breath. Patient reports a two day history of worsening shortness for breath with associated productive cough with yellow/brown phlegm. Denies chest pain or palpitations. Reports occasional chills. No other acute complaints reported. Course of hospitalization: Patient was found to have positive blood culture. Final growth is Staphylococcus capitis. Patient was continued on vancomycin while in the hospital. Patient had tunneled catheter removed with repeat blood culture being clear of any growth. New HD catheter was placed. Patient will undergo hemodialysis today. He has been cleared to be discharged from Nephrology standpoint. Patient has no signs of having any bacteremia, with normal vital signs. Apparently, patient was on hospice prior to coming to the hospital. Social service consultation has been placed, with the patient to be discharged back on hospice with a different group. Given culture sensitivity, patient will be continued on antibiotic therapy with Augmentin 875 mg p.o. twice a day for additional five days. Patient was agreeable this discharge plan. All questions answered. Physical examination General: Alert and Oriented x3. No acute distress. Well-nourished. Eyes: EOMI. Anicteric. HENT: Moist mucous membranes. Lungs: Clear to auscultation bilaterally. No accessory muscle use. Cardiovascular: Regular rate and rhythm. No murmur. No JVD. Abdomen: Soft, non-tender and non-distended. No palpable masses. Extremities: No edema. Non-tender. Skin: No rashes or lesions. Warm. Neurologic: No focal neurological deficits. CN II-XII grossly intact, but not individually tested. Psychiatric: Cooperative. Appropriate mood and affect. Total time spent with patient discussing and formulating plan of care: 35 minutes. This medical document was created using an electronic medical record system with [employer] computerized dictation system. Although this document has been carefully reviewed, there may still be some phonetic and typographical errors. These areas are purely typographical due to imperfections of the software programs, and do not reflect any compromise in the patient's medical care. Condition at Discharge: Poor Final Diagnosis/Problems List Infected hemodialysis catheter Secondary diagnosis: -sepsis secondary to infected dialysis catheter -end-stage renal disease with hemodialysis -hypertensive urgency -hyperkalemia -obesity -acute respiratory failure -COPD -history of CAD -AFib -metabolic encephalopathy -community-acquired pneumonia, probable Gram-positive/Gram-negative etiology Discharge Disposition: Hospice - Home Discharge Instruct/Medications Diet: Cardiac 2g Na,low cholest, Renal Activity: No Restrictions, As Tolerated Follow Up/Referral: Per accepting hospice provider Continue with established hemodialysis chair time Medications: Continue all previous home medications Augmentin 875 mg p.o. b.i.d. for additional five days 36 Discharge Statement: "Patient was advised to return to the ER or call 911 if any headaches, dizziness, shortness of breath, chest pain, abdominal pain, bleeding, fevers, or worsening of medical condition. Patient was counseled about treatment plan, medications, possible side effects, patientverbalized understanding. All questions were answered to the best of my ability. This discharge took greater then 30 minutes in planning, reviewing documentation, counseling the patient, and discussing with other team members." ASSESSMENT ASSESSMENT Assessment Infected hemodialysis catheter Date of Service: Feb 25, 2025 Billing Provider: ESPERANZA BARRERA NP Common Visit Codes: [id number] DISCH DAY >30min ESPERANZA BARRERA NP Feb 25, 2025 11:32
[2025-02-25] MEDS ORDERED: VANCOMYCIN 500mg/100mL 100 ML IV ONE (22:00)
== END 2025-02-25 17:15 | disposition hospice, home (50) | DRG 314 ==
LOC: ER 15:12 → EDBD 15:12 → OVERFLOW 19:37 → CENTRAL 02-19 06:15
PROVIDERS: ADMIT Nurse Practitioner Acute Care; ATTEND Nurse Practitioner Acute Care
PROC: 5A1D70Z Performance of Urinary Filtration, Intermittent, Less than 6 Hours Per Day (ICD-10-PCS; 2025-02-19)
PROC: 5A1D70Z Performance of Urinary Filtration, Intermittent, Less than 6 Hours Per Day (ICD-10-PCS; 2025-02-20)
PROC: 5A1D70Z Performance of Urinary Filtration, Intermittent, Less than 6 Hours Per Day (ICD-10-PCS; 2025-02-22)
PROC: 0J2TXYZ Change Other Device in Trunk Subcutaneous Tissue and Fascia, External Approach (ICD-10-PCS; principal; 2025-02-23)
PROC: 5A1D70Z Performance of Urinary Filtration, Intermittent, Less than 6 Hours Per Day (ICD-10-PCS; 2025-02-25)
DX: T80.211A Bloodstream infection due to central venous catheter, initial encounter (principal); G93.41 Metabolic encephalopathy; J96.01 Acute respiratory failure with hypoxia; J15.69 Pneumonia due to other Gram-negative bacteria; I50.33 Acute on chronic diastolic (congestive) heart failure; J15.9 Unspecified bacterial pneumonia; N18.6 End stage renal disease; I16.1 Hypertensive emergency; I13.2 Hypertensive heart and chronic kidney disease with heart failure and with stage 5 chronic kidney disease, or end stage renal disease; J44.0 Chronic obstructive pulmonary disease with (acute) lower respiratory infection; D68.69 Other thrombophilia; E11.22 Type 2 diabetes mellitus with diabetic chronic kidney disease; Z99.2 Dependence on renal dialysis; D64.9 Anemia, unspecified; E66.9 Obesity, unspecified; Z68.31 Body mass index [BMI] 31.0-31.9, adult; E87.5 Hyperkalemia; I25.10 Atherosclerotic heart disease of native coronary artery without angina pectoris; E78.5 Hyperlipidemia, unspecified; I48.91 Unspecified atrial fibrillation; M10.9 Gout, unspecified; K21.9 Gastro-esophageal reflux disease without esophagitis; Z86.73 Personal history of transient ischemic attack (TIA), and cerebral infarction without residual deficits; Z82.5 Family history of asthma and other chronic lower respiratory diseases; Z82.49 Family history of ischemic heart disease and other diseases of the circulatory system; Z85.46 Personal history of malignant neoplasm of prostate; Y84.8 Other medical procedures as the cause of abnormal reaction of the patient, or of later complication, without mention of misadventure at the time of the procedure; Z79.82 Long term (current) use of aspirin; Z79.899 Other long term (current) drug therapy
CPT/HCPCS: 36415; 36576; 71045; 76604; 77001; 80048; 80053; 80074; 80202; 82565; 82607; 83880; 84443; 84484; 85025; 85610; 85730; 86850; 86900; 86901; 87040; 87077; 87081; 87186; 90935; 93005; 94640; 96365; 96375; 97163; 99152; 99291; G0378; J1642; J2003; J2250

== ENCOUNTER 2025-03-25 08:11 | Inpatient (IN) | payer OTHER, MEDICAID ==
[~2025-03-25] VITALS: Ht 185.4 cm; Wt 102.9 kg
[~2025-03-25 08:11] MED LIST changes: +AUG875T PO; +ONDA-155 PO
--- NOTE | 2025-03-25 08:28 | ED.PDOC ---
History of Present Illness HPI Comments 80 year old male presents to the ED via EMS with a chief complaint of generalized weakness onset 1 week. Per EMS, [facility], 911 was called due to increased respiratory effort this morning. Patient states for the past week he has been weak, has not been able to walk. Upon EMS arrival, O2 sat was 96% on 4L, tachycardiac with HR of 120. Patient has been seen at [facility] several times, last discharge was 02/25/25 was admitted due to shortness of breath. Patient is currently on antibiotics, for the past 3 days, due to hematuria/ UTI. PMHx CAD, CHF, COPD, HLD, HTN, UTIs, ESRD, GERD, DM, enlarged prostate, dementia. Denies chest pain, dizziness, nausea, vomiting, erick rrhea, fevers, chills. No other symptoms or modifying factors present at this time. Chief Complaint: General Weakness Time Seen by MD: 08:15 Primary Care Provider: ANGELI Farfan Notes: Medications, Allergies Allergies: Coded Allergies: NO KNOWN ALLERGIES (Unverified , 03/08/18) Home Meds Active Scripts Amoxicillin & Pot Clavulanate (AUGMENTIN TABLET) 875 Mg Tb, 875 MG PO BID for 5 Days, #10 TAB Prov:ESPERANZA BARRERA NP 02/25/25 Aspirin (Aspir-Low) 81 Mg Tab, 81 MG PO DAILY, #60 TAB Prov:GARLAND BLOUNT MD 03/17/24 Atorvastatin Calcium (ATORVASTATIN CALCIUM) 20 Mg Tab, 1 TAB PO DAILY, #90 TAB 1 Refill Prov:TALA GODINEZ MD 08/04/23 Reported Medications Ondansetron HCl (Ondansetron) 4 Mg Tab, 4 MG PO, TAB 02/19/25 Losartan Potassium (Losartan Potassium) 25 Mg Tab, 1 TAB PO BID for HTN , #90 TAB 1 Refill 01/17/25 Metoprolol Tartrate (LOPRESSOR TABLET) 50 Mg Tb, 1 TAB PO BID, #60 TAB 5 Refills 03/14/24 Pantoprazole Sodium Sesquihydr (Pantoprazole Sodium) 40 Mg Tab, 1 TAB PO DAILY 07/17/23 Apixaban Base (ELIQUIS) 2.5 Mg Tab, 1 TAB PO BID 07/17/23 Sevelamer Carbonate (Sevelamer Carbonate) 2.4 Gm Pow, 1 PKT PO TID 07/17/23 Information Source: Patient, Emergency Med Personnel Mode of Arrival: EMS Severity: Moderate Timing: Hours Duration: Since onset Prehospital treatment: None Past Medical History PAST MEDICAL HISTORY: CAD, CHF, COPD, CVA, DM, ESRD, GERD, Gout, High Lipids, HTN, UTI'S Surgical History: PTCA Family History Family History: Reviewed,noncontributory to illness, Family hx of Cancer Social History Smoker: Non-Smoker, Quit Greater Than 1 Year Alcohol: Denies ETOH Use Drugs: Denies Drug Use Lives In: [facility] Constitutional: reports: weakness; denies: chills, diaphoresis, fatigue, fever, malaise, sweats, others EENTM: denies: blurred vision, double vision, ear bleeding, ear discharge, ear drainage, ear pain, ear ringing, eye pain, eye redness, hearing loss, mouth pain, mouth swelling, nasal discharge, nose bleeding, nose congestion, nose pain, photophobia, tearing, throat pain, throat swelling, voice changes, others Respiratory: reports: shortness of breath; denies: cough, hemoptysis, orthopnea, SOB at rest, SOB with excertion, stridor, wheezing, others Cardiovascular: denies: chest pain, dizzy spells, diaphoresis, Dyspnea on exertion, edema, irregular heart beat, left arm pain, lightheadedness, palpitations, PND, syncope, others Gastrointestinal: denies: abdomen distended, abdominal pain, blood streaked bowels, constipated, diarrhea, dysphagia, difficulty swallowing, hematemesis, melena, nausea, poor appetite, poor fluid intake, rectal bleeding, rectal pain, vomiting, others Genitourinary: denies: burning, dysuria, flank pain, frequency, hematuria, incontinence, penile discharge, penile sore, pain, testicle pain, testicle swelling, urgency, others Neurological: reports: weakness; denies: dizziness, fainting, headache, left sided numbness, left sided weakness, numbness, paresthesia, pre-existing deficit, right sided numbness, right sided weakness, seizure, speech problems, tingling, tremors, others Musculoskeletal: denies: back pain, gout, joint pain, joint swelling, muscle pain, muscle stiffness, neck pain, others Integumetry: denies: bruises, change in color, change in hair/nails, dryness, laceration, lesions, lumps, rash, wounds, others Allergic/Immunocompromised: denies: Difficulty Healing, Frequent Infections, Hives, Itching, others Hematologic/Lymphatic: denies: anemia, blood clots, easy bleeding, easy bruising, swollen glands, others Endocrine: denies: excessive hunger, excessive sweating, excessive thirst, excessive urination, flushing, intolerance to cold, intolerance to heat, unexplained weight gain, unexplained weight loss, others Psychiatric: denies: anxiety, bipolar disorder, depression, hopeless, panic disorder, schizophrenia, sleepless, suicidal, others All Other Systems: Reviewed and Negative Physical Exam General Appearance: Moderate Distress HEENT: Normal ENT Inspection, Pharynx Normal, TMs Normal Neck: Full Range of Motion, Non-Tender, Normal, Normal Inspection Respiratory: Chest Non-Tender Cardiovascular: No Edema, No JVD, No Murmur, No Gallop, Normal Peripheral Pulses, Regular Rate/Rhythm Breast Exam: Deferred Gastrointestinal: No Organomegaly, Non Tender, No Pulsatile Mass, Normal Bowel Sounds, Soft Genitalia: Deferred Pelvic: Deferred Rectal: Deferred Extremities: No calf tenderness, Normal capillary refill, Normal inspection, Normal range of motion, Non-tender, No pedal edema Musculoskeletal : Apperance: Normal Neurologic: Alert Cerebellar Function: NOT DONE Reflexes: NOT DONE Skin: Dry, Normal Color, Warm Lymphatic: No Adenopathy Was a procedure done? Was a procedure done?: No EKG EKG : Pulse Rate (adult): 132 Cardiac Rhythm: ST Differential Dx Considerations may include: Sepsis Electrolyte imbalance X-Ray, Labs, Meds, VS Vital Signs Date Time Temp Pulse Resp B/P (MAP) Pulse Ox O2 Delivery O2 Flow Rate FiO2 03/25/25 08:28 132 03/25/25 08:19 132 03/25/25 08:15 98.9 132 24 133/75 (94) 95 98.9 Patient does state his name. Possible sepsis. Has been feeling like this for week. Currently taking antibiotics for possible urinary tract infection. Requiring more oxygen than normal. Reviewed his previous visit. Explained to the patient. Continue monitoring. Time of 1ST Reevaluation: 08:45 Reevaluation 1ST: Unchanged Patient Education/Counseling: Diagnosis, Treatment, Prognosis Family Education/Counseling: No Family Present SEPSIS Sepsis Screen Physician Orders Complete Blood Count (03/25/25 08:17) Comprehensive Metabolic Panel (03/25/25 08:17) PTPTT (03/25/25 08:17) Urinalysis (03/25/25 08:17) Chest Portable (03/25/25 08:17) Accucheck (03/25/25 08:17) Lactated Ringer's (03/25/25 08:30) Blood Culture (03/25/25 08:17) Vancomycin 1gm/200ml Pm (03/25/25 08:30) Lactic Acid W/ Reflex Order (03/25/25 10:00) Lactic Acid W/ Reflex Order (03/25/25 12:00) Cefepime 1gm/ 50ml (Maxipime 1gm/50ml) (03/25/25 14:00) Notify Md If Map <65 Or Bp<90 (03/25/25 08:17) If Map<65 Start Vasopressor (03/25/25 08:17) Sepsis Reassesment After Fluid (03/25/25 09:17) Vital Signs Date Time Temp Pulse Resp B/P (MAP) Pulse Ox O2 Delivery O2 Flow Rate FiO2 03/25/25 08:28 132 03/25/25 08:19 132 03/25/25 08:15 98.9 132 24 133/75 (94) 95 98.9 Departure 1 Departure Time of Disposition: 08:53 Impression: Primary Impression: Sepsis, unspecified organism Qualified Codes: A41.9 - Sepsis, unspecified organism Disposition: ADMITTED INPATIENT Admit to: Med Surg Condition: Guarded Critical Care Note Critical Care Time?: Yes (90 min-critical care time only) Critical care comment: Sepsis Stability Stability form required: No Heart Score Heart Score: Heart Score Response (Comments) Value History Slightly Suspicious 0 EKG Normal 0 Age >65 2 Risk Factors >3 or Hx ASHD 2 Troponin Normal limit 0 Total 4 I personally scribed for KAMAR JO MD ([email or web address]) on 03/25/25 at 08:28. Electronically submitted by Erica Gallego ([email or web address]). KAMAR JO MD Mar 25, 2025 08:28
[2025-03-25] MEDS: LACTATED RINGER'S 1,700 ML IV ONE (08:50)
--- NOTE | 2025-03-25 08:52 | ECG ---
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
--- NOTE | 2025-03-25 09:08 | DVH ---
XY CHEST PORTABLE, HISTORY: sob COMPARISON: XY CHEST PORTABLE on DOS: 02/20/25, XY CHEST PORTABLE on DOS: 02/18/25, XY CHEST XRAY 1 VIE W on DOS: 01/11/25 XY CHEST PORTABLE on DOS: 02/20/25, XY CHEST PORTABLE on DOS: 02/18/25, XY CHEST XRAY 1 VIEW on DOS: 01/11/25 TECHNICAL DATA: 1 view of the chest was obtained. FINDINGS: Lines and tubes: A TD cath is seen. Cardiomediastinal silhouette: Enlarged Pulmonary vasculature: Prominent Lung expansion: Low Lung airspace: normal Lung interstitium: normal Pleura: normal Pneumothorax: no Bones: Unremarkable Other: no IMPRESSION: Cardiomegaly with pulmonary vascular congestion.
[2025-03-25 09:33] LABS: Hematocrit 32.5 % (41.0-53.0); Hemoglobin 9.9 g/dL (13.5-17.5); Mean Corpuscular Hemoglobin 31.4 pg (28.0-32.0); Mean Corpuscular Volume 103.4 fL (80.0-100.0); Nucleated Red Blood Cells % 0.1 %
[2025-03-25 09:46] LABS: INR 1.14 (0.9-1.15); Partial Thromboplastin Time 31.6 SEC (24.5-34.5); Prothrombin Time 11.9 sec (9.3-11.8)
[2025-03-25 09:51] LABS: Alanine Aminotransferase 10 U/L (7-40); Albumin 3.6 g/dL (3.2-4.8); Alkaline Phosphatase 105 U/L (46-116); Anion Gap 9 (5-15); BUN/Creatinine Ratio 5.5 (10.0-20.0); Bilirubin, Total 0.6 mg/dL (0.2-1.0); Calcium 9.2 mg/dL (8.7-10.4); Carbon Dioxide 28 mmol/L (20-31); Chloride 102 mmol/L (98-107); Potassium 3.6 mmol/L (3.5-5.1); Sodium 139 mmol/L (136-145); Total Protein 6.9 g/dL (5.7-8.2)
[2025-03-25 09:52] LABS: Blood Urea Nitrogen 31 mg/dL (9-23); Glucose 116 mg/dL (74-106)
[2025-03-25] MEDS: VANCOMYCIN 1GM/200ML PM 200 ML IV ONE (10:53)
[2025-03-25 11:42] LABS: Lactic Acid w/Reflex 2.1 mmol/L (0.4-2.0)
[2025-03-25] MEDS: CEFEPIME 1GM/ 50ML 50 ML IV ONE (13:44)
[2025-03-25] MEDS ORDERED: IPRATROPIUM BROM 0.5 MG/2.5ML INH SOL NEB PRN ×2 (14:00→15:00)
[2025-03-25] MEDS ORDERED: CEFEPIME 1GM/ 50ML 50 ML IV SCH (14:00)
[2025-03-25] MEDS ORDERED: VANCOMYCIN PER PHARMACY 0 MG IV SCH (14:45)
[2025-03-25] MEDS ORDERED: ALBUTEROL SULF 2.5 MG/0.5ML(0.5%) NEB SOLN NEB PRN (14:45)
[2025-03-25] MEDS ORDERED: DEXTROSE (50%) 50ML SYRG IV PRN (15:00)
[2025-03-25] MEDS: SODIUM CHLORIDE 0.9% 1,000 ML IV SCH (15:04)
--- NOTE | 2025-03-25 15:04 | DVHHP2 ---
History of Present Illness Reason for Visit: Generalized weakness History of Present Illness 80-year-old male presents to the emergency department via EMS with a chief complaint of generalized weakness, with onset approximately one week ago. Per EMS and medical staff from his [facility] facility, 911 was called due to increased work of breathing noted this morning. The patient reports feeling weak over the past week and states he has not been able to ambulate during this time. He denies any pain, chest discomfort, fever, chills, or other acute complaint at this time. On exam, the patient is alert to name but appears frail and chronically ill. Chart review reveals multiple recent ED visits and hos pitalizations over the past few months, with the most recent discharge occurring on 02/25/2025. The patient is currently enrolled in hospice care. Significant past medical history of CAD, congestive heart failure, COPD, hyperlipidemia, hypertension, end-stage renal disease, type 2 diabetes, UTI, BPH, dementia, and paroxysmal Anabella on Eliquis. Past Medical History As stated in HPI Past Surgical History PTCA Family History Reviewed, non-contributory to the management of this case. Past Social History The patient lives at a [facility], denies smoking, alcohol or illicit drugs abuse. Review of Systems Constitutional: Yes: Weakness, Malaise; No: Fever, Chills, Sweats, Other Eyes: No: Pain, Vision change, Conjunctivae inflammation, Eyelid inflammation, Other, Redness ENT: No: Ear pain, Ear discharge, Nose pain, Nose discharge, Nose congestion, Mouth pain, Mouth swelling, Throat pain, Throat swelling, Other Respiratory: Shortness of breath, SOB with excertion; No: Cough, Dry, Wheezing, Hemoptysis, Pleuritic Pain, Sputum, Wheezing, Other Cardiovascular: No: Chest Pain, Palpitations, Orthopnea, Paroxysmal Noc. Dysp andrew, Edema, Lt Headedness, Other Gastrointestinal: No: Nausea, Vomiting, Abdominal Pain, Diarrhea, Constipation, Melena, Hematochezia, Other Genitourinary: No Dysuria, No Frequency, No Incontinence, No Hematuria, No Retention, No Other Musculoskeletal: No: other, neck pain, shoulder pain, arm pain, back pain, hand pain, leg pain, foot pain Skin: No: Rash, Lesions, Jaundice, Bruising, Other Neurological: Confusion Allergies: Coded Allergies: NO KNOWN ALLERGIES (Unverified , 03/08/18) Medications Current Medications Medications Dose Ordered Sig/Carmen Route Start Time Stop Time Status Last Admin Dose Admin Cefepime HCl 50 ml @ 12.5 mls/hr DAILY IV 03/26/25 10:00 Exam Vital Signs Vital Signs Date Time Temp Pulse Resp B/P (MAP) Pulse Ox O2 Delivery O2 Flow Rate FiO2 03/25/25 14:00 88 24 115/65 (82) 99 03/25/25 10:00 98.7 98.7 03/25/25 08:50 Nasal Cannula* 4 36 General Appearance: Alert, Other (Elderly male, frail appearing, alert to name, not in acute distress) HEENT: Atraumatic, PERRLA Respiratory: Other (Mild to moderate increased respiratory effort diminished breath sounds bilaterally. No rales or wheezes) Cardiovascular: Other (Currently in sinus rhythm) Abdominal: Normal bowel sounds, Soft, No tenderness Extremities: No clubbing, No cyanosis, No edema Skin: No rashes, No breakdown, No significant lesion Neuro: Other (Alert to name only.) Labs/Xrays Labs Test 03/25/25 12:59 03/25/25 09:08 Range/Units Lactic Acid Level 1.7 0.4-2.0 mmol/L White Blood Count 17.4 H 4.4-10.8 10^3/uL Red Blood Count 3.14 L 4.5-5.90 10^6/uL Hemoglobin 9.9 L 13.5-17.5 g/dL Hematocrit 32.5 L 41.0-53.0 % Mean Corpuscular Volume 103.4 H 80.0-100.0 fL Mean Corpuscular Hemoglobin 31.4 28.0-32.0 pg Mean Corpuscular Hemoglobin Concent 30.4 L 32.0-36.0 g/dL Red Cell Distribution Width 18.0 H 11.8-14.3 % Platelet Count 226 140-450 10^3/uL Mean Platelet Volume 6.8 L 6.9-10.8 fL Neutrophils (%) (Auto) 96.9 H 37.0-80.0 % Lymphocytes (%) (Auto) 0.7 L 10.0-50.0 % Monocytes (%) (Auto) 1.3 0.0-12.0 % Eosinophils (%) (Auto) 0.7 0.0-7.0 % Basophils (%) (Auto) 0.4 0.0-2.0 % Neutrophils # (Auto) 16.9 H 1.6-8.6 10 ^3/uL Lymphocytes # (Auto) 0.1 L 0.4-5.4 10 ^3/uL Monocytes # (Auto) 0.2 0-1.3 10 ^3/uL Eosinophils # (Auto) 0.1 0-0.8 10 ^3/uL Basophils # (Auto) 0.1 0-0.2 10 ^3/uL Nucleated Red Blood Cells 0.1 % Prothrombin Time 11.9 H 9.3-11.8 sec Prothrombin Time INR 1.14 0.9-1.15 Activated Partial Thromboplast Time 31.6 24.5-34.5 SEC Sodium Level 139 136-145 mmol/L Potassium Level 3.6 3.5-5.1 mmol/L Chloride Level 102 98-107 mmol/L Carbon Dioxide Level 28 20-31 mmol/L Anion Gap 9 5-15 Blood Urea Nitrogen 31 H 9-23 mg/dL Creatinine 5.65 H 0.700-1.30 mg/dL Glomerular Filtration Rate Calc 10 >90 mL/min BUN/Creatinine Ratio 5.5 L 10.0-20.0 Serum Glucose 116 H 74-106 mg/dL Calcium Level 9.2 8.7-10.4 mg/dL Total Bilirubin 0.6 0.2-1.0 mg/dL Aspartate Amino Transferase (AST) 12 L 13-40 U/L Alanine Aminotransferase (ALT) 10 7-40 U/L Alkaline Phosphatase 105 46-116 U/L Total Protein 6.9 5.7-8.2 g/dL Albumin 3.6 3.2-4.8 g/dL SEPSIS Sepsis Screen Date sepsis recognized/suspect: Mar 25, 2025 Time Sepsis recognized/suspect: 0850 Recent Procedure: No On Antibiotic Therapy: Yes Respiratory Rate >20: Yes Heart Rate >90: Yes Temp<36 C (96.8 F) or >38.3 C: No SBP <90 or MAP <65 mmHG: No New Acute Mental Status Change: No Is the patient on CPAP, BIPAP,: No Physician Orders Urinalysis (03/25/25 08:17) Chest Portable (03/25/25 08:17) Accucheck (03/25/25 08:17) Blood Culture (03/25/25 08:17) Notify Md If Map <65 Or Bp<90 (03/25/25 08:17) If Map<65 Start Vasopressor (03/25/25 08:17) Sepsis Reassesment After Fluid (03/25/25 09:17) Communication Order (03/25/25 12:12) Cefepime 1gm/ 50ml (Maxipime 1gm/50ml) (03/26/25 10:00) Admit (03/25/25 14:33) Code Status (03/25/25 14:33) Sodium Chloride 0.9% (03/25/25 14:45) Enoxaparin Sodium (Lovenox) (03/26/25 10:00) Fall Risk Precautions In Place QSHIFT (03/25/25 14:33) Complete Blood Count (03/26/25 04:00) Comprehensive Metabolic Panel (03/26/25 04:00) Cardiac Diet-2gna,Lofat,Lochol (03/25/25 Dinner) Condition: Fair (03/25/25 14:33) *[facility] (03/25/25 14:33) Vital Signs Date Time Temp Pulse Resp B/P (MAP) Pulse Ox O2 Delivery O2 Flow Rate FiO2 03/25/25 14:00 88 24 115/65 (82) 99 03/25/25 12:00 97 24 117/64 (81) 100 03/25/25 12:00 94 03/25/25 10:00 98.7 113 26 131/69 (89) 100 98.7 03/25/25 08:50 Nasal Cannula* 4 36 03/25/25 08:28 132 03/25/25 08:19 132 03/25/25 08:15 98.9 132 24 133/75 (94) 95 98.9 Laboratory Tests Test 03/25/25 09:08 03/25/25 11:08 03/25/25 12:59 Lactic Acid Level 1.4 mmol/L (0.4-2.0) 2.1 mmol/L (0.4-2.0) *H 1.7 mmol/L (0.4-2.0) White Blood Count 17.4 10^3/uL (4.4-10.8) H Medications Medications Dose Ordered Sig/Carmen Route Start Time Stop Time Status Last Admin Dose Admin Cefepime HCl 50 ml @ 50 mls/hr ONCE ONCE IV 03/25/25 13:00 03/25/25 13:59 DC 03/25/25 13:44 50 MLS/HR Lactated Ringer's 1,700 ml @ 1,700 mls/hr ONCE ONCE IV 03/25/25 08:30 03/25/25 09:29 DC 03/25/25 08:50 1,700 MLS/HR Vancomycin HCl 200 ml @ 200 mls/hr ONCE ONCE IV 03/25/25 08:30 03/25/25 09:29 DC 03/25/25 10:53 200 MLS/HR Assessment/Plan Assessment/Plan # Sepsis # Possible pneumonia # acute on chronic respiratory failure # COPD * Admit to telemetry unit * Empiric antibiotic * Soft IV fluid * Pancultures * Repeat x-ray in a.m. * DuoNeb * Continue with home meds * O2 supplement # cardiomegaly with pulmonary vascular congestion # hypertension # CAD # paroxysmal AFib on Eliquis # CHF # hyperlipidemia * Continue with home medication * Lovenox and transition back to Eliquis on discharge * Monitor * Diuretics as needed * Check BNP # ESRD on HD * Nephrology consult # diabetes type 2 * ISS # GERD * PPI DVT and PPI prophylaxis Medical plan discussed with patient and RN Plan discussed with: Patient My Orders Orders - BEKA EATON [employer]OMIST Procedure Category Date Status Time Communication Order ORDERS 03/25/25 Transmitted 12:12 Admit ADMIT 03/25/25 Transmitted 14:33 Code Status CODE 03/25/25 Transmitted 14:33 Sodium Chloride 0.9% PHA 03/25/25 Logged 14:45 Enoxaparin Sodium PHA 03/26/25 Logged (Lovenox) 10:00 Fall Risk Precautions LULY 03/25/[address] 14:33 Complete Blood Count LAB 03/26/25 Verified 04:00 Comprehensive LAB 03/26/25 Verified Metabolic Panel 04:00 Cardiac DIET 03/25/25 Transmitted Diet-2gna,Lofat,Lochol Dinner Condition: Fair LULY 03/25/25 In Process 14:33 *[facility] CONS 03/25/25 Transmitted -[place] 14:33 Date of Service: Mar 25, 2025 Billing Provider: BEKA EATON Common Visit Codes: 43004-UNNEFVD INP/OBS CARE (HIGH) Consultation Codes: [id number] CONSULT <45MIN BEKA EATON Mar 25, 2025 15:04
[2025-03-25 15:11] VITALS: BP 115/65; PULSE 88; RESP 24; TEMP 98.7; O2SAT 99
[2025-03-25] MEDS: PANTOPRAZOLE 40 MG/10 ML VIAL INJ IV ONE (15:33)
[2025-03-25] MEDS: InsuLIN REG 1unit/0.01ml Soln (100units/ml) SC SCH (17:00)
[2025-03-25] MEDS: ACCU-CHEK COMFORT CURVE STRIP VI SCH (17:28)
[2025-03-25 18:38] VITALS: PULSE 87; RESP 18; O2SAT 100
[2025-03-25] MEDS: IPRATROPIUM BROM 0.5 MG/2.5ML INH SOL NEB SCH (18:38)
[2025-03-25] MEDS: ALBUTEROL SULF 2.5 MG/0.5ML(0.5%) NEB SOLN NEB SCH (18:38)
[2025-03-25 18:46] VITALS: PULSE 82; RESP 18; O2SAT 100
[2025-03-25 19:50] VITALS: O2SAT 93
[2025-03-25] MEDS: LOSARTAN POTASSIUM 25 MG TAB PO SCH (22:00)
[2025-03-25] MEDS: METOPROLOL TARTRATE 50 MG TAB PO SCH (22:00)
[2025-03-26] VITALS (9 sets, daily range): PULSE 79–109; RESP 11–20; O2SAT 92–100
--- NOTE | 2025-03-26 00:38 | DVH ---
CHEST RADIOGRAPH Indication: sob Technique: Single frontal view of the chest was obtained COMPARISON: XY CHEST PORTABLE on DOS: 03/25/25, XY CHEST PORTABLE on DOS: 02/20/25, XY CHEST PORTABLE o n DOS: 02/18/25, XY CHEST XRAY 1 VIEW on DOS: 01/11/25, XY CHEST XRAY 1 VIEW on DOS: 03/13/24 FINDINGS: Lines and Tubes: Right permCath unchanged in position. Lungs: Persistent diffuse increased prominence of the pulmonary vasculature. No evidence of focal co nsolidation. Pleura: No effusion. No pneumothorax. Cardiomediastinal contours: Cardiomegaly. Bones: Unremarkable IMPRESSION: 1. Cardiomegaly and diffuse increased prominence of the pulmonary vasculature. 2. Right PermCath.
[2025-03-26 05:17] LABS: Hemoglobin 10.3 g/dL (13.5-17.5)
[2025-03-26 05:18] LABS: Alanine Aminotransferase 16 U/L (7-40); Albumin 3.4 g/dL (3.2-4.8); Alkaline Phosphatase 113 U/L (46-116); Anion Gap 12 (5-15); BUN/Creatinine Ratio 6.6 (10.0-20.0); Carbon Dioxide 26 mmol/L (20-31); Chloride 102 mmol/L (98-107); Glucose 94 mg/dL (74-106); Hematocrit 34.4 % (41.0-53.0); Mean Corpuscular Hemoglobin 32.2 pg (28.0-32.0); Mean Corpuscular Volume 107.1 fL (80.0-100.0); Nucleated Red Blood Cells % 0.2 %; Potassium 4.5 mmol/L (3.5-5.1); Sodium 140 mmol/L (136-145); Total Protein 6.5 g/dL (5.7-8.2)
[2025-03-26 05:19] LABS: Bilirubin, Total 0.4 mg/dL (0.2-1.0)
[2025-03-26 05:21] LABS: Blood Urea Nitrogen 42 mg/dL (9-23); Calcium 8.5 mg/dL (8.7-10.4)
[2025-03-26 05:49] LABS: Iron 23.0 ug/dL (65-175)
[2025-03-26 05:54] LABS: Total Iron Binding Capacity 162.0 ug/dL (250-425)
[2025-03-26] MEDS: SODIUM CHL 0.9% 1000 ML BAG XX ONE (07:00)
[2025-03-26] MEDS ORDERED: PANTOPRAZOLE 40 MG TAB PO SCH (10:00)
--- NOTE | 2025-03-26 10:10 | DVHINCON2 ---
Date of service: Mar 26, 2025 Reason for Consultation ESRD History of Present Illness 80-year-old male past medical history of COPD, CHF, hypertension, hyperlipidemia and end-stage renal disease on hemodialysis, atrial fibrillation on Eliquis presents to the hospital complaining of shortness of breath. Nephrology is consulted for dialysis treatment Past Medical History As above Allergies: Coded Allergies: NO KNOWN ALLERGIES (Unverified , 03/08/18) Home Meds Active Scripts Amoxicillin & Pot Clavulanate (AUGMENTIN TABLET) 875 Mg Tb, 875 MG PO BID for 5 Days, #10 TAB Prov:ESPERANZA BARRERA NP 02/25/25 Aspirin (Aspir-Low) 81 Mg Tab, 81 MG PO DAILY, #60 TAB Prov:GARLAND BLOUNT MD 03/17/24 Atorvastatin Calcium (ATORVASTATIN CALCIUM) 20 Mg Tab, 1 TAB PO DAILY, #90 TAB 1 Refill Prov:TALA GODINEZ MD 08/04/23 Reported Medications Ondansetron HCl (Ondansetron) 4 Mg Tab, 4 MG PO, TAB 02/19/25 Losartan Potassium (Losartan Potassium) 25 Mg Tab, 1 TAB PO BID for HTN , #90 TAB 1 Refill 01/17/25 Metoprolol Tartrate (LOPRESSOR TABLET) 50 Mg Tb, 1 TAB PO BID, #60 TAB 5 Refills 03/14/24 Pantoprazole Sodium Sesquihydr (Pantoprazole Sodium) 40 Mg Tab, 1 TAB PO DAILY 07/17/23 Apixaban Base (ELIQUIS) 2.5 Mg Tab, 1 TAB PO BID 07/17/23 Sevelamer Carbonate (Sevelamer Carbonate) 2.4 Gm Pow, 1 PKT PO TID 07/17/23 Current Medications Current Medications Medications (Trade) Dose Ordered Sig/Carmen Route PRN Reason Start Time Stop Time Status Last Admin Metoprolol Succinate (Toprol Xl) 100 mg DAILY PO 03/28/25 10:00 03/28/25 11:19 Family History: Asthma G8 MOTHER, Onset:Unknown FH: cancer G8 FATHER Hypertension G8 FATHER Review of Systems Shortness of breath H&P Exam Vital Signs/I&O Vital Sign Date Time Temp Pulse Resp B/P (MAP) Pulse Ox O2 Delivery O2 Flow Rate FiO2 03/28/25 14:00 97 21 112/66 (81) 97 03/28/25 13:00 98.4 98.4 03/28/25 11:49 Nasal Cannula 3.0 03/28/25 11:49 32 Intake and Output 03/27/25 03/28/25 19:00 07:00 Intake Total 270.0 ml 2840 ml Balance 270.0 ml 2840 ml Intake IV Total 270.0 ml 2840 ml Physical Exam Well-nourished male Ill-appearing Mild distress due to shortness of breath Irregular rate and rhythm with tachycardia Abdomen is soft Nontender 1+ pitting edema Labs/Diagnostic Data Labs/Diagnostic Data Laboratory Tests Test 03/28/25 04:48 03/28/25 03:17 03/27/25 14:42 03/27/25 10:00 Range/Units White Blood Count 19.6 H 20.8 #H 4.4-10.8 10^3/uL Red Blood Count 2.63 L 2.49 L 4.5-5.90 10^6/uL Hemoglobin 8.3 L 7.9 #L 13.5-17.5 g/dL Hematocrit 26.7 L 25.0 #L 41.0-53.0 % Mean Corpuscular Volume 101.5 H 100.5 #H 80.0-100.0 fL Mean Corpuscular Hemoglobin 31.5 31.9 28.0-32.0 pg Mean Corpuscular Hemoglobin Concent 31.0 L 31.7 L 32.0-36.0 g/dL Red Cell Distribution Width 17.6 H 17.3 H 11.8-14.3 % Platelet Count 165 159 140-450 10^3/uL Mean Platelet Volume 7.1 7.1 6.9-10.8 fL Neutrophils (%) (Auto) 88.2 H 89.6 H 37.0-80.0 % Lymphocytes (%) (Auto) 3.0 L 2.3 L 10.0-50.0 % Monocytes (%) (Auto) 7.8 7.4 0.0-12.0 % Eosinophils (%) (Auto) 0.6 0.5 0.0-7.0 % Basophils (%) (Auto) 0.4 0.2 0.0-2.0 % Neutrophils # (Auto) 17.3 H 18.7 H 1.6-8.6 10 ^3/uL Lymphocytes # (Auto) 0.6 0.5 0.4-5.4 10 ^3/uL Monocytes # (Auto) 1.5 H 1.5 H 0-1.3 10 ^3/uL Eosinophils # (Auto) 0.1 0.1 0-0.8 10 ^3/uL Basophils # (Auto) 0.1 0 0-0.2 10 ^3/uL Nucleated Red Blood Cells 0.0 0.0 % Sodium Level 139 138 136-145 mmol/L Potassium Level 4.1 4.1 3.5-5.1 mmol/L Chloride Level 100 101 98-107 mmol/L Carbon Dioxide Level 31 31 20-31 mmol/L Anion Gap 8 6 5-15 Blood Urea Nitrogen 23 22 9-23 mg/dL Creatinine 3.93 H 3.85 H 0.700-1.30 mg/dL Glomerular Filtration Rate Calc 15 15 >90 mL/min BUN/Creatinine Ratio 5.9 L 5.7 L 10.0-20.0 Serum Glucose 90 96 74-106 mg/dL Calcium Level 8.2 L 8.0 L 8.7-10.4 mg/dL Total Bilirubin 0.9 0.2-1.0 mg/dL Aspartate Amino Transferase (AST) 19 13-40 U/L Alanine Aminotransferase (ALT) 11 7-40 U/L Alkaline Phosphatase 95 46-116 U/L Total Protein 6.2 5.7-8.2 g/dL Albumin 3.3 3.2-4.8 g/dL Random Vancomycin Level 19.5 H 5-10 ug/mL Blood Gas Specimen Type Arterial Blood Gas Sample Site Left radial Blood Gas Patient Temperature 37.0 Arterial Blood Date Drawn [id number] Arterial Blood pH 7.401 7.350-7.450 Arterial Blood Partial Pressure CO2 45.5 35.0-48.0 mmHg Arterial Blood Partial Pressure O2 301.1 *H 83.0-108.0 mmHg Arterial Blood HCO3 27.6 21.0-28.0 mmol/L Arterial Blood Oxygen Saturation 99.7 H 94.0-98.0 % Arterial Blood Base Excess 2.4 -2.0-3.0 mmol/L Arterial Blood Oxyhemoglobin 97.9 94.0-98.0 % Arterial Blood Carboxyhemoglobin 1.3 0.5-1.5 % Arterial Blood Methemoglobin 0.5 0.0-1.5 % Cornelio Test Yes Blood Gas Total Hemoglobin 10.20 L 13.5-17.5 g/dL Blood Gas Liter Flow 15.00 Blood Gas Modality Mask - nrb FiO2 % 100.0 Blood Gas Critical Value Read Back Yes Blood Gas Notified Whom eliseo Mclaughlin md Blood Gas Notified Time [id number] Blood Gas Notified By Campaign Director kvng araujo POC Glucose 126 H 70-106 mg/dl Test 03/27/25 07:27 03/27/25 03:35 03/26/25 13:20 03/26/25 11:48 Range/Units POC Glucose 102 124 H 70-106 mg/dl White Blood Count 9.0 # 4.4-10.8 10^3/uL Red Blood Count 3.15 L 4.5-5.90 10^6/uL Hemoglobin 10.1 L 13.5-17.5 g/dL Hematocrit 33.5 L 41.0-53.0 % Mean Corpuscular Volume 106.3 H 80.0-100.0 fL Mean Corpuscular Hemoglobin 32.1 H 28.0-32.0 pg Mean Corpuscular Hemoglobin Concent 30.2 L 32.0-36.0 g/dL Red Cell Distribution Width 17.6 H 11.8-14.3 % Platelet Count 168 140-450 10^3/uL Mean Platelet Volume 6.9 6.9-10.8 fL Neutrophils (%) (Auto) 80.8 H 37.0-80.0 % Lymphocytes (%) (Auto) 4.6 L 10.0-50.0 % Monocytes (%) (Auto) 10.0 0.0-12.0 % Eosinophils (%) (Auto) 4.0 0.0-7.0 % Basophils (%) (Auto) 0.6 0.0-2.0 % Neutrophils # (Auto) 7.3 1.6-8.6 10 ^3/uL Lymphocytes # (Auto) 0.4 0.4-5.4 10 ^3/uL Monocytes # (Auto) 0.9 0-1.3 10 ^3/uL Eosinophils # (Auto) 0.4 0-0.8 10 ^3/uL Basophils # (Auto) 0 0-0.2 10 ^3/uL Nucleated Red Blood Cells 0.5 % Sodium Level 139 136-145 mmol/L Potassium Level 4.0 3.5-5.1 mmol/L Chloride Level 101 98-107 mmol/L Carbon Dioxide Level 23 20-31 mmol/L Anion Gap 15 5-15 Blood Urea Nitrogen 23 # 9-23 mg/dL Creatinine 4.52 H 0.700-1.30 mg/dL Glomerular Filtration Rate Calc 12 >90 mL/min BUN/Creatinine Ratio 5.1 L 10.0-20.0 Serum Glucose 94 74-106 mg/dL Calcium Level 9.0 8.7-10.4 mg/dL Phosphorus Level 2.9 2.4-5.1 mg/dL Random Vancomycin Level 17.2 H 5-10 ug/mL Influenza Type A Antigen Negative Negative Influenza Type B Antigen Negative Negative SARS-CoV-2 Antigen (Rapid) Negative NEGATIVE Test 03/26/25 04:40 03/26/25 00:44 03/25/25 17:20 03/25/25 12:59 Range/Units White Blood Count 16.4 H 4.4-10.8 10^3/uL Red Blood Count 3.21 L 4.5-5.90 10^6/uL Hemoglobin 10.3 L 13.5-17.5 g/dL Hematocrit 34.4 L 41.0-53.0 % Mean Corpuscular Volume 107.1 H 80.0-100.0 fL Mean Corpuscular Hemoglobin 32.2 H 28.0-32.0 pg Mean Corpuscular Hemoglobin Concent 30.1 L 32.0-36.0 g/dL Red Cell Distribution Width 17.6 H 11.8-14.3 % Platelet Count 212 140-450 10^3/uL Mean Platelet Volume 7.1 6.9-10.8 fL Neutrophils (%) (Auto) 82.2 H 37.0-80.0 % Lymphocytes (%) (Auto) 4.8 L 10.0-50.0 % Monocytes (%) (Auto) 8.8 0.0-12.0 % Eosinophils (%) (Auto) 3.9 0.0-7.0 % Basophils (%) (Auto) 0.3 0.0-2.0 % Neutrophils # (Auto) 13.5 H 1.6-8.6 10 ^3/uL Lymphocytes # (Auto) 0.8 0.4-5.4 10 ^3/uL Monocytes # (Auto) 1.5 H 0-1.3 10 ^3/uL Eosinophils # (Auto) 0.6 0-0.8 10 ^3/uL Basophils # (Auto) 0 0-0.2 10 ^3/uL Nucleated Red Blood Cells 0.2 % Sodium Level 140 136-145 mmol/L Potassium Level 4.5 3.5-5.1 mmol/L Chloride Level 102 98-107 mmol/L Carbon Dioxide Level 26 20-31 mmol/L Anion Gap 12 5-15 Blood Urea Nitrogen 42 #H 9-23 mg/dL Creatinine 6.39 H 0.700-1.30 mg/dL Glomerular Filtration Rate Calc 8 >90 mL/min BUN/Creatinine Ratio 6.6 L 10.0-20.0 Serum Glucose 94 74-106 mg/dL Hemoglobin A1c 4.2 <5.7 % A1C Calcium Level 8.5 L 8.7-10.4 mg/dL Phosphorus Level 5.2 H 2.4-5.1 mg/dL Iron Level 23 L 65-175 ug/dL Total Iron Binding Capacity 162 L 250-425 ug/dL Percent Iron Saturation 14.2 L 20-55 % Ferritin 1622.0 H 22-322 ng/mL Total Bilirubin 0.4 0.2-1.0 mg/dL Aspartate Amino Transferase (AST) 15 13-40 U/L Alanine Aminotransferase (ALT) 16 7-40 U/L Alkaline Phosphatase 113 46-116 U/L Total Protein 6.5 5.7-8.2 g/dL Albumin 3.4 3.2-4.8 g/dL Random Vancomycin Level 13.4 H 5-10 ug/mL Hepatitis A IgM Antibody Negative Hepatitis B Surface Antigen Negative Negative Hepatitis B Core IgM Antibody Negative Negative Hepatitis C Antibody Negative Negative POC Glucose 93 98 70-106 mg/dl Lactic Acid Level 1.7 0.4-2.0 mmol/L Test 03/25/25 11:08 03/25/25 09:08 Range/Units Lactic Acid Level 2.1 *H 1.4 0.4-2.0 mmol/L White Blood Count 17.4 H 4.4-10.8 10^3/uL Red Blood Count 3.14 L 4.5-5.90 10^6/uL Hemoglobin 9.9 L 13.5-17.5 g/dL Hematocrit 32.5 L 41.0-53.0 % Mean Corpuscular Volume 103.4 H 80.0-100.0 fL Mean Corpuscular Hemoglobin 31.4 28.0-32.0 pg Mean Corpuscular Hemoglobin Concent 30.4 L 32.0-36.0 g/dL Red Cell Distribution Width 18.0 H 11.8-14.3 % Platelet Count 226 140-450 10^3/uL Mean Platelet Volume 6.8 L 6.9-10.8 fL Neutrophils (%) (Auto) 96.9 H 37.0-80.0 % Lymphocytes (%) (Auto) 0.7 L 10.0-50.0 % Monocytes (%) (Auto) 1.3 0.0-12.0 % Eosinophils (%) (Auto) 0.7 0.0-7.0 % Basophils (%) (Auto) 0.4 0.0-2.0 % Neutrophils # (Auto) 16.9 H 1.6-8.6 10 ^3/uL Lymphocytes # (Auto) 0.1 L 0.4-5.4 10 ^3/uL Monocytes # (Auto) 0.2 0-1.3 10 ^3/uL Eosinophils # (Auto) 0.1 0-0.8 10 ^3/uL Basophils # (Auto) 0.1 0-0.2 10 ^3/uL Nucleated Red Blood Cells 0.1 % Prothrombin Time 11.9 H 9.3-11.8 sec Prothrombin Time INR 1.14 0.9-1.15 Activated Partial Thromboplast Time 31.6 24.5-34.5 SEC Sodium Level 139 136-145 mmol/L Potassium Level 3.6 3.5-5.1 mmol/L Chloride Level 102 98-107 mmol/L Carbon Dioxide Level 28 20-31 mmol/L Anion Gap 9 5-15 Blood Urea Nitrogen 31 H 9-23 mg/dL Creatinine 5.65 H 0.700-1.30 mg/dL Glomerular Filtration Rate Calc 10 >90 mL/min BUN/Creatinine Ratio 5.5 L 10.0-20.0 Serum Glucose 116 H 74-106 mg/dL Calcium Level 9.2 8.7-10.4 mg/dL Total Bilirubin 0.6 0.2-1.0 mg/dL Aspartate Amino Transferase (AST) 12 L 13-40 U/L Alanine Aminotransferase (ALT) 10 7-40 U/L Alkaline Phosphatase 105 46-116 U/L B-Type Natriuretic Peptide 386.07 0-100 pg/mL Total Protein 6.9 5.7-8.2 g/dL Albumin 3.6 3.2-4.8 g/dL Microbiology Date/Time Source Procedure Growth Status 03/26/25 16:30 Nose MRSA Screen - Final Complete Assessment 80 year old Male PMH ESRD, CVA, HTN, COPD, CHF p/w weakness ESRD HTN CHF COPD sepsis , leukocytosis HD today ABX, kang cultures care time time 55mins Plan discussed with: Patient CLAUDE IZAGUIRRE MD Mar 26, 2025 10:10
[2025-03-26 10:13] LABS: Hepatitis B Surface Antigen Negative (Negative)
[2025-03-26 10:34] LABS: Hepatitis C Antibody Negative (Negative)
[2025-03-26] MEDS: CEFEPIME 1GM/ 50ML 50 ML IV SCH (11:40)
[2025-03-26] MEDS: PANTOPRAZOLE 40 MG/10 ML VIAL INJ IV SCH (11:40)
[2025-03-26] MEDS: ENOXAPARIN SOD 30 MG/0.3 ML SYRINGE SC SCH (11:41)
[2025-03-26] MEDS: ASPirin-EC 81 mg tab PO SCH (11:42)
[2025-03-26] MEDS: EPOETIN ALFA-EPBX 4,000 UNIT/ML VIAL SC SCH (11:43)
[2025-03-26] MEDS: VANCOMYCIN 500mg/100mL 100 ML IV ONE (14:26)
[2025-03-26 15:21] LABS: COVID19 ANTIGEN SOFIA FIA NEGATIVE (NEGATIVE)
[2025-03-26] MEDS: THIAMINE 100mg/ml INJ (200mg/2ml VIAL) IV SCH (15:33)
--- NOTE | 2025-03-26 19:39 | DVHPNRES ---
Progress Note Date Seen: Mar 26, 2025 Resident Creating Document: TERRIE JUDGE RESIDENT Medical Necessity Reason Pt with a Central, PICC or Fol: No Subjective Review of Systems Patient is an 80-year-old male with prior medical history of CAD, CHF, type 2 diabetes mellitus, BPH, dementia, hyperlipidemia, hypertension, ESRD on dialysis, CVA, and paroxysmal AFib on Eliquis who was brought to the ED via EMS from [place] [facility] Home chief complaint of generalized weakness. History is limited to previous record due to patient's condition and no contact information for family. Per the record, onset of generalized weekend approximately 1 week prior to presentation, was progressed to be associated with shortness of breaths, prompting staff from his boarding facility to EMS. Per the record, the patient has been on Augmentin for 3 days due to a UTI. On evaluation in the ED, he was in moderate distress, oriented only in person, tachycardic, tachypneic, and saturating 96% on 4L with NC, per the record this is more than his usual amount of oxygen. Initial labs show WBCs 17.4, hemoglobin 9.9, hematocrit 32.5, platelets 226, sodium 139, potassium 3.6, BUN 31, creatinine 5.65, GFR 10, lactic acid 1.4 trending to 2.1, negative troponins, and BNP 386.07. Chest x-ray shows cardiomegaly with pulmonary vascular congestion. Sepsis protocol was initiated patient was admitted for workup and antibiotic therapy. Patient seen at bedside. He is oriented only in person, disoriented in place and time. He is unable to answer questions regarding his current state. Currently requiring total assist with feeding and tolerating, unknown if this is his baseline. Follow-up labs significant for WBCs 16.4, lactic acid 0.7,BUN 42, GFR 8, and creatinine 6.39. Preliminary blood cultures show no growth at 24 hours. Acute hepatitis panel negative, influenza A, influenza B, and COVID antigen. Negative due to suspicion of Korsakoff's syndrome, he was started on high dose thiamine. Patient was seen by Nephrology, who scheduled hemodialysis for today. He will continue on broad coverage antibiotic therapy pending results of blood and urine culture. Review of systems: Unable to evaluate Objective vital signs Vital Sign Date Time Temp Pulse Resp B/P (MAP) Pulse Ox O2 Delivery O2 Flow Rate FiO2 7/25 18:30 98 12 118/64 (82) 95 03/26/25 18:04 Nasal Cannula* 2 28 03/26/25 13:30 98.1 98.1 Total Intake and Output 03/25/25 03/25/25 03/26/25 15:00 23:00 07:00 Intake Total 1950 ml 170 ml Balance 1950 ml 170 ml medications Current Medications Medications Dose Ordered Sig/Carmen Route Start Time Stop Time Status Last Admin Dose Admin Cefepime HCl 50 ml @ 12.5 mls/hr DAILY IV 03/26/25 10:00 03/26/25 11:40 12.5 MLS/HR Sodium Chloride 1,000 ml @ 60 mls/hr [id number] IV 03/25/25 14:45 03/25/25 15:04 60 MLS/HR Enoxaparin Sodium 30 mg DAILY SC 03/26/25 10:00 03/26/25 11:41 30 MG Aspirin 81 mg DAILY PO 03/26/25 10:00 03/26/25 11:42 81 MG Atorvastatin Calcium 20 mg HS PO 03/26/25 22:00 Losartan Potassium 25 mg BID PO 03/25/25 22:00 03/26/25 11:43 25 MG Metoprolol Tartrate 50 mg BID PO 03/25/25 22:00 03/26/25 11:42 50 MG Pantoprazole Sodium 40 mg DAILY PO 03/26/25 10:00 Cancel Vancomycin HCl 0 ml @ 0 mls/hr UD IV 03/25/25 14:45 Albuterol 2.5 mg Q6HR NEB 03/25/25 18:00 03/26/25 18:02 2.5 MG Albuterol 2.5 mg Q4HPRN PRN NEB 03/25/25 14:45 Ipratropium Patton 0.5 mg Q6HR NEB 03/25/25 18:00 03/26/25 18:02 0.5 MG Diagnostic Test (Pha) 1 strip ACHS 03/25/25 17:00 03/26/25 12:13 1 STRIP Insulin Human Regular ACHS SC 03/25/25 17:00 Dextrose 50 ml UD PRN IV 03/25/25 15:00 Ipratropium Patton 0.5 mg Q4HPRN PRN NEB 03/25/25 15:00 Pantoprazole Sodium 40 mg DAILY IV 03/26/25 10:00 03/26/25 11:40 40 MG Epoetin Carlos-epbx 4,000 unit MWF ND 03/26/25 10:00 03/26/25 11:43 4,000 UNIT Thiamine HCl 500 mg DAILY@1400 IV 03/26/25 14:00 03/27/25 14:01 03/26/25 15:33 500 MG Examination General: Patient oriented only in person, disoriented in place and time. Can follow basic commands. HEENT: Normocephalic, atraumatic, moist mucous membrane Chest/Respiratory/pulmonary: Presence of dialysis catheter in right pectoral region, increased work of breathing, decreased breath sounds bilaterally, no associated crackles or wheezes. Cardiovascular: Normal RRR Abdomen: Normal bowel sounds, abdomen nondistended, soft, no pain to palpation in any of the abdominal quadrants, no palpable masses. Extremities: No signs of deformities, no peripheral edema present at the lower extremities, both feet are cold to the touch Peripheral pulses 3+ radial right, 3+ radials soft, decreased pulses in both feet Skin: No rashes or pruritus Neurological: Intact cranial nerves, patient only in person laboratory and microbiology Laboratory Tests 03/26/25 04:40 Test 03/26/25 04:40 Range/Units Serum Glucose 94 74-106 mg/dL Microbiology Date/Time Source Procedure Growth Status 03/25/25 09:23 Blood Blood Culture - Preliminary NO GROWTH AFTER 24 HOURS OF INCUBATION. 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 Avelar. Plan discussed with: Other (RN) Date of Service: Mar 26, 2025 Billing Provider: SUDHAKAR AVELAR MD Common Visit Codes: [id number] INP/OBS CARE(HIGH) TERRIE JUDGE RESIDENT Mar 26, 2025 19:39 SUDHAKAR AVELAR MD Mar 29, 2025 14:23
[2025-03-26] MEDS: ATORVASTATIN 20 MG TAB PO SCH (22:00)
[2025-03-27] VITALS (7 sets, daily range): PULSE 88–128; RESP 12–19; O2SAT 94–100
[2025-03-27 04:12] LABS: Hematocrit 33.5 % (41.0-53.0); Hemoglobin 10.1 g/dL (13.5-17.5); Mean Corpuscular Hemoglobin 32.1 pg (28.0-32.0); Mean Corpuscular Volume 106.3 fL (80.0-100.0); Nucleated Red Blood Cells % 0.5 %
[2025-03-27 04:42] LABS: Chloride 101 mmol/L (98-107); Potassium 4.0 mmol/L (3.5-5.1); Sodium 139 mmol/L (136-145)
[2025-03-27 04:43] LABS: Anion Gap 15 (5-15); Calcium 9.0 mg/dL (8.7-10.4); Carbon Dioxide 23 mmol/L (20-31)
[2025-03-27 04:48] LABS: BUN/Creatinine Ratio 5.1 (10.0-20.0); Blood Urea Nitrogen 23 mg/dL (9-23); Glucose 94 mg/dL (74-106)
--- NOTE | 2025-03-27 11:16 | DVHPN2 ---
Progress Note Date Seen: Mar 27, 2025 Medical Necessity Reason Pt with a Central, PICC or Fol: No Objective vital signs Vital Sign Date Time Temp Pulse Resp B/P (MAP) Pulse Ox O2 Delivery O2 Flow Rate FiO2 03/27/25 11:01 88 21 108/58 (75) 99 03/27/25 08:39 97.9 97.9 03/27/25 08:39 Room Air* 0 21 Total Intake and Output 03/26/25 03/26/25 03/27/25 15:00 23:00 07:00 Intake Total 137.5 ml 12.5 ml Balance 137.5 ml 12.5 ml medications Current Medications Medications Dose Ordered Sig/Carmen Route Start Time Stop Time Status Last Admin Dose Admin Cefepime HCl 50 ml @ 12.5 mls/hr DAILY IV 03/26/25 10:00 03/27/25 09:28 12.5 MLS/HR Sodium Chloride 1,000 ml @ 60 mls/hr [id number] IV 03/25/25 14:45 03/27/25 00:05 60 MLS/HR Enoxaparin Sodium 30 mg DAILY SC 03/26/25 10:00 03/27/25 09:27 30 MG Aspirin 81 mg DAILY PO 03/26/25 10:00 03/27/25 09:27 81 MG Atorvastatin Calcium 20 mg HS PO 03/26/25 22:00 03/27/25 09:28 20 MG Losartan Potassium 25 mg BID PO 03/25/25 22:00 03/27/25 09:28 25 MG Metoprolol Tartrate 50 mg BID PO 03/25/25 22:00 03/27/25 09:27 50 MG Pantoprazole Sodium 40 mg DAILY PO 03/26/25 10:00 Cancel Vancomycin HCl 0 ml @ 0 mls/hr UD IV 03/25/25 14:45 Albuterol 2.5 mg Q6HR NEB 03/25/25 18:00 03/27/25 07:20 2.5 MG Albuterol 2.5 mg Q4HPRN PRN NEB 03/25/25 14:45 Ipratropium Mcalester 0.5 mg Q6HR NEB 03/25/25 18:00 03/27/25 07:20 0.5 MG Dextrose 50 ml UD PRN IV 03/25/25 15:00 Ipratropium Mcalester 0.5 mg Q4HPRN PRN NEB 03/25/25 15:00 Pantoprazole Sodium 40 mg DAILY IV 03/26/25 10:00 03/27/25 09:27 40 MG Epoetin Carlos-epbx 4,000 unit MWF [place] 03/26/25 10:00 03/26/25 11:43 4,000 UNIT Thiamine HCl 500 mg DAILY@1400 IV 03/26/25 14:00 03/27/25 14:01 03/26/25 15:33 500 MG Examination: GENERAL:Normal, LUNGS:Abnormal, CVS:Normal laboratory and microbiology Laboratory Tests 03/27/25 03:35 Test 03/27/25 03:35 Range/Units Serum Glucose 94 74-106 mg/dL Microbiology Date/Time Source Procedure Growth Status 03/25/25 09:23 Blood Blood Culture - Preliminary NO GROWTH AFTER 48 HOURS OF INCUBATION. Resulted Problem List/Assessment/Plan Problem List/Assessment/Plan 80 year old Male PMH ESRD, CVA, HTN, COPD, CHF p/w weakness ESRD HTN CHF COPD sepsis , leukocytosis Atrial fibrillation Patient had rapid AFib during hemodialysis treatment treatment was ended early with rinse back Hemodynamics returned to stable limits after rinse back ABX, kang cultures Monitor for daily assessment Plan discussed with: Patient Total Time (mins): 33 CLAUDE IZAGUIRRE MD Mar 27, 2025 11:16
[2025-03-27] MEDS: VANCOMYCIN 500mg/100mL 100 ML IV ONE ×2 (13:00→15:45)
[2025-03-27 14:52] LABS: Base Excess 2.4 mmol/L (-2.0-3.0)
--- NOTE | 2025-03-27 15:13 | DVH ---
CHEST RADIOGRAPH Indication: SOB Technique: Single frontal view of the chest was obtained COMPARISON: XY CHEST PORTABLE on DOS: 03/26/25, XY CHEST PORTABLE on DOS: 03/25/25, XY CHEST PORTABLE o n DOS: 02/20/25, XY CHEST PORTABLE on DOS: 02/18/25, XY CHEST XRAY 1 VIEW on DOS: 01/11/25 FINDINGS: Lines and Tubes: Tunneled right central venous catheter in satisfactory position. Lungs: Left mid and lower lobe airspace disease. Pleura: No effusion. No pneumothorax. Cardiomediastinal contours: Cardiomegaly Bones: Unremarkable IMPRESSION: No significant interval change.
[2025-03-27] MEDS: SODIUM CHL 0.9% 1000 ML BAG XX ONE (15:38)
--- NOTE | 2025-03-27 16:19 | DVHPNRES ---
Progress Note Date Seen: Mar 27, 2025 Resident Creating Document: TERRIE JUDGE RESIDENT Medical Necessity Reason Pt with a Central, PICC or Fol: No Subjective Review of Systems Patient is an 80-year-old male with prior medical history of CAD, CHF, type 2 diabetes mellitus, BPH, dementia, hyperlipidemia, hypertension, ESRD on dialysis, CVA, and paroxysmal AFib on Eliquis who was brought to the ED via EMS from [facility] chief complaint of generalized weakness. History is limited to previous record due to patient's condition and no contact information for family. Per the record, onset of generalized weekend approximately 1 week prior to presentation, was progressed to be associated with shortness of breaths, prompting staff from his boarding facility to EMS. Per the record, the patient has been on Augmentin for 3 days due to a UTI. On evaluation in the ED, he was in moderate distress, oriented only in person, tachycardic, tachypneic, and saturating 96% on 4L with NC, per the record this is more than his usual amount of oxygen. Initial labs show WBCs 17.4, hemoglobin 9.9, hematocrit 32.5, platelets 226, sodium 139, potassium 3.6, BUN 31, creatinine 5.65, GFR 10, lactic acid 1.4 trending to 2.1, negative troponins, and BNP 386.07. Chest x-ray shows cardiomegaly with pulmonary vascular congestion. Sepsis protocol was initiated patient was admitted for workup and antibiotic therapy. At the time of evaluation, the patient was oriented only in person, disoriented in place and time. He was unable to answer questions regarding his current state. Follow-up labs significant for WBCs 16.4, lactic acid 0.7,BUN 42, GFR 8, and creatinine 6.39. Acute hepatitis panel negative, influenza A, influenza B, and COVID antigen were negative. Due to suspicion of Wernicke-Korsakoff's syndrome, he was started on high dose thiamine. Patient was seen by nephrology, who scheduled hemodialysis. Patient seen at bedside. Patient is more alert, is oriented in person, place, and time. At baseline is still slightly disoriented. Patient was able to feed himself and seemed comfortable at 4L O2 via nasal cannula. States he does not recall the events that led to him being brought to the hospital. At the time of evaluation denied shortness of breath, chest pain, abdominal pain, cough, and any other symptoms. Follow up labs were significant for WBC 9, BUN 23, and creatinine 4.52. Preliminary blood cultures are negative at 48 hours. Per nurse, it is not possible to get urine sample given that the patient is anuric. Patient underwent second hemodialysis session today. Per medical laboratory technicians, patient had undergone 2 hours and 40 minutes of treatment with 1.5 L drained. During this, he became increasingly short of breath, desaturating and entered Afib with RVR with HR in the 150s. He was placed on a nonrebreather mask at 15L, dialysis was stopped, and 500 ccs of fluid were returned to the patient. POCUS showed presence of B lines in bilateral lungs, collapsible IVC, study was unable to properly evaluated RV. ABGs were taken, and were within normal range. Once fluids were retuned, heart rate began to decrease, and work of breathing lessened. Patient was placed on an oximizer 15 L O2. Chest Xray taken showed no significant interval change from previous study stating cardiomegaly and diffuse increased prominence of the pulmonary vasculature. He was started on metoprolol for rate control. He will be transferred to [facility]. Objective vital signs Vital Sign Date Time Temp Pulse Resp B/P (MAP) Pulse Ox O2 Delivery O2 Flow Rate FiO2 03/27/25 15:15 131 20 129/77 (94) 98 03/27/25 13:41 Nasal Cannula 4.0 03/27/25 13:41 36 03/27/25 08:39 97.9 97.9 Total Intake and Output 03/26/25 03/26/25 03/27/25 15:00 23:00 07:00 Intake Total 137.5 ml 12.5 ml Balance 137.5 ml 12.5 ml medications Current Medications Medications Dose Ordered Sig/Carmen Route Start Time Stop Time Status Last Admin Dose Admin Cefepime HCl 50 ml @ 12.5 mls/hr DAILY IV 03/26/25 10:00 03/27/25 09:28 12.5 MLS/HR Sodium Chloride 1,000 ml @ 60 mls/hr [id number] IV 03/25/25 14:45 03/27/25 00:05 60 MLS/HR Enoxaparin Sodium 30 mg DAILY SC 03/26/25 10:00 03/27/25 09:27 30 MG Aspirin 81 mg DAILY PO 03/26/25 10:00 03/27/25 09:27 81 MG Atorvastatin Calcium 20 mg HS PO 03/26/25 22:00 03/27/25 09:28 20 MG Losartan Potassium 25 mg BID PO 03/25/25 22:00 03/27/25 09:28 25 MG Metoprolol Tartrate 50 mg BID PO 03/25/25 22:00 03/27/25 09:27 50 MG Pantoprazole Sodium 40 mg DAILY PO 03/26/25 10:00 Cancel Vancomycin HCl 0 ml @ 0 mls/hr UD IV 03/25/25 14:45 Albuterol 2.5 mg Q6HR NEB 03/25/25 18:00 03/27/25 13:41 2.5 MG Albuterol 2.5 mg Q4HPRN PRN NEB 03/25/25 14:45 Ipratropium [place] 0.5 mg Q6HR NEB 03/25/25 18:00 03/27/25 13:41 0.5 MG Dextrose 50 ml UD PRN IV 03/25/25 15:00 Ipratropium [place] 0.5 mg Q4HPRN PRN NEB 03/25/25 15:00 Pantoprazole Sodium 40 mg DAILY IV 03/26/25 10:00 03/27/25 09:27 40 MG Epoetin Carlos-epbx 4,000 unit MWF HI 03/26/25 10:00 03/26/25 11:43 4,000 UNIT Examination General: Patient oriented in person, place, and time. Can follow basic commands. HEENT: Normocephalic, atraumatic, moist mucous membrane Chest/Respiratory/pulmonary: Presence of dialysis catheter in right pectoral region, increased work of breathing, decreased breath sounds bilaterally, no associated crackles or wheezes. Cardiovascular: Irregular rate and rhythm Abdomen: Normal bowel sounds, abdomen nondistended, soft, no pain to palpation in any of the abdominal quadrants, no palpable masses. Extremities: No signs of deformities, both feet are edematous, both feet are cold to the touch Peripheral pulses 3+ radial right, 3+ radials soft, decreased pulses in both feet Skin: No rashes or pruritus Neurological: Intact cranial nerves, patient only in person laboratory and microbiology Laboratory Tests 03/27/25 03:35 Test 03/27/25 03:35 Range/Units Serum Glucose 94 74-106 mg/dL Microbiology Date/Time Source Procedure Growth Status 03/26/25 16:30 Nose MRSA Screen - Final Complete 03/25/25 09:23 Blood Blood Culture - Preliminary NO GROWTH AFTER 48 HOURS OF INCUBATION. Resulted Problem List/Assessment/Plan Problem List/Assessment/Plan Assessment and Plan: Sepsis, possibly due to UTI Lactic acidosis due to above -IV fluids -Cefepime IV daily -Vancomycin IV daily -Blood cultures: Preliminary: No growth at 48 hours -Urine culture unable to obtain Acute on chronic hypoxic respiratory failure, possible due to above -Oxymizer 10L O2 -Ipratropium bromide 0.5 mg Nebulizer PRN -Albuterol 2.5 mg nebulizer SC Possible Wernicke-Korsakoff Syndrome Possible Acute Metabolic Encephalopathy due to above -Thiamine 500 mg IV , discontinued AFib with RVR -Metoprolol 50 mg BID ESRD on dialysis -Had dialysis 03/26/2025 -Had dialysis 03/27/2025 -Monitor renal function Anemia possibly due to ESRD -Monitor H and H -Retacrit 4000 Unit SC MWF Type 2 Diabetes Mellitus -Accu-chek -SSI -Carbohydrate consistent diet Hyperlipidemia -Continue home medications Hypertension -Continue home medications History of Paroxysmal Afib on eliquis History of Chronic Diastolic Heart Failure, not exacerbated -Cardiac diet History of CAD History of CVA History of GERD -Protonix 40 mg IV daily DVT prophylaxis: Lovenox 30 mg IV Case discussed with Dr. Avelar. Plan discussed with: Other (RN) Date of Service: Mar 27, 2025 Billing Provider: SUDHAKAR AVELAR MD Common Visit Codes: [id number] INP/OBS CARE(HIGH) TERRIE JUDGE RESIDENT Mar 27, 2025 16:19 SUDHAKAR AVELAR MD Mar 29, 2025 14:27
[2025-03-27] MEDS: ACETAMINOPHEN 650 MG RECT SUPP PR ONE (20:01)
[2025-03-28] VITALS (8 sets, daily range): BP systolic 103; BP diastolic 66; PULSE 81–95; RESP 18; O2SAT 98–100
[2025-03-28 04:02] LABS: Hematocrit 25.0 % (41.0-53.0); Hemoglobin 7.9 g/dL (13.5-17.5); Mean Corpuscular Hemoglobin 31.9 pg (28.0-32.0); Mean Corpuscular Volume 100.5 fL (80.0-100.0); Nucleated Red Blood Cells % 0.0 %
[2025-03-28 04:04] LABS: Chloride 101 mmol/L (98-107); Potassium 4.1 mmol/L (3.5-5.1); Sodium 138 mmol/L (136-145)
[2025-03-28 04:05] LABS: Anion Gap 6 (5-15); Carbon Dioxide 31 mmol/L (20-31)
[2025-03-28 04:06] LABS: Calcium 8.0 mg/dL (8.7-10.4)
[2025-03-28 04:10] LABS: BUN/Creatinine Ratio 5.7 (10.0-20.0); Blood Urea Nitrogen 22 mg/dL (9-23); Glucose 96 mg/dL (74-106)
[2025-03-28 05:16] LABS: Hemoglobin 8.3 g/dL (13.5-17.5); Nucleated Red Blood Cells % 0.0 %
[2025-03-28 05:17] LABS: Hematocrit 26.7 % (41.0-53.0); Mean Corpuscular Hemoglobin 31.5 pg (28.0-32.0); Mean Corpuscular Volume 101.5 fL (80.0-100.0)
[2025-03-28 05:32] LABS: Alanine Aminotransferase 11 U/L (7-40); Albumin 3.3 g/dL (3.2-4.8); Alkaline Phosphatase 95 U/L (46-116); Anion Gap 8 (5-15); BUN/Creatinine Ratio 5.9 (10.0-20.0); Bilirubin, Total 0.9 mg/dL (0.2-1.0); Carbon Dioxide 31 mmol/L (20-31); Chloride 100 mmol/L (98-107); Glucose 90 mg/dL (74-106); Potassium 4.1 mmol/L (3.5-5.1); Sodium 139 mmol/L (136-145); Total Protein 6.2 g/dL (5.7-8.2)
[2025-03-28 05:36] LABS: Blood Urea Nitrogen 23 mg/dL (9-23); Calcium 8.2 mg/dL (8.7-10.4)
[2025-03-28] MEDS: METOPROLOL SUCCINATE XL 50 MG TAB PO SCH (11:19)
--- NOTE | 2025-03-28 15:20 | DVHPNRES ---
Progress Note Date Seen: Mar 28, 2025 Resident Creating Document: TERRIE JUDGE RESIDENT Has the PT tested + for MRSA If YES, has PT been informed?: Yes Medical Necessity Reason Pt with a Central, PICC or Fol: No Subjective Review of Systems Patient is an 80-year-old male with prior medical history of CAD, CHF, COPD, type 2 diabetes mellitus, BPH, dementia, hyperlipidemia, hypertension, ESRD on dialysis, CVA, and paroxysmal AFib on Eliquis who was brought to the ED via EMS from [facility] chief complaint of generalized weakness. History is limited to previous record due to patient's condition and no contact information for family. Per the record, onset of generalized weekend approximately 1 week prior to presentation, was progressed to be associated with shortness of breaths, prompting staff from his boarding facility to EMS. Per the record, the patient has been on Augmentin for 3 days due to a UTI. On evaluation in the ED, he was in moderate distress, oriented only in person, tachycardic, tachypneic, and saturating 96% on 4L with NC, per the record this is more than his usual amount of oxygen. Initial labs show WBCs 17.4, hemoglobin 9.9, hematocrit 32.5, platelets 226, sodium 139, potassium 3.6, BUN 31, creatinine 5.65, GFR 10, lactic acid 1.4 trending to 2.1, negative troponins, and BNP 386.07. Chest x-ray shows cardiomegaly with pulmonary vascular congestion. Sepsis protocol was initiated patient was admitted for workup and antibiotic therapy. At the time of evaluation, the patient was oriented only in person, disoriented in place and time. He was unable to answer questions regarding his current state. Follow-up labs significant for WBCs 16.4, lactic acid 0.7,BUN 42, GFR 8, and creatinine 6.39. Acute hepatitis panel negative, influenza A, influenza B, and COVID antigen were negative. Due to suspicion of Wernicke-Korsakoff's syndrome, he was started on high dose thiamine. Patient was seen by nephrology, who scheduled hemodialysis. On evaluation the follow day, patient was more alert and was comfortably tolerating 4L O2 via NC. Patient underwent second hemodialysis session and during this he became increasingly short of breath, desaturating and entered Afib with RVR with HR in the 150s. He was placed on a nonrebreather mask at 15L, dialysis was stopped, and 500 ccs of fluid were returned to the patient. POCUS showed presence of B lines in bilateral lungs, collapsible IVC, study was unable to properly evaluated RV. ABGs were taken, and were within normal range. Once fluids were retuned, heart rate began to decrease, work of breathing lessened, he was placed on an Oxymizer at 10 L, and metoprolol was initiated for rate control. Patient seen at bedside. Patient is more alert, oriented in person, place, and time. Patient is sill slightly disoriented due to baseline dementia. He is comfortably resting, NC cannula at 4L and tolerating. In the last 24 hours, patient presented febrile spikes of 101.3, last febrile spike documented at 19:30 hours. Follow up labs were significant for WBCs 19.6, Creatinine 3.85, and BUN 22. Blood cultures are negative at 72 hours of growth. MRSA screen positive, topical mupirocin has been sent. O2 weaned down to 3L, and he is tolerating. We will continue to cover with antibiotics and monitor the patient's progression. He will be placed on Telemetry for further monitoring. Objective vital signs Vital Sign Date Time Temp Pulse Resp B/P (MAP) Pulse Ox O2 Delivery O2 Flow Rate FiO2 03/28/25 14:30 84 20 111/64 (80) 96 03/28/25 13:00 98.4 98.4 03/28/25 11:49 Nasal Cannula 3.0 03/28/25 11:49 32 Total Intake and Output 03/27/25 03/27/25 03/28/25 15:00 23:00 07:00 Intake Total 50.0 ml 2640 ml 420 ml Balance 50.0 ml 2640 ml 420 ml medications Current Medications Medications Dose Ordered Sig/Carmen Route Start Time Stop Time Status Last Admin Dose Admin Cefepime HCl 50 ml @ 12.5 mls/hr DAILY IV 03/26/25 10:00 03/28/25 10:00 12.5 MLS/HR Sodium Chloride 1,000 ml @ 60 mls/hr [id number] IV 03/25/25 14:45 03/27/25 21:40 60 MLS/HR Enoxaparin Sodium 30 mg DAILY SC 03/26/25 10:00 03/28/25 11:16 30 MG Aspirin 81 mg DAILY PO 03/26/25 10:00 03/28/25 11:17 81 MG Atorvastatin Calcium 20 mg HS PO 03/26/25 22:00 03/27/25 09:28 20 MG Losartan Potassium 25 mg BID PO 03/25/25 22:00 03/27/25 22:01 25 MG Pantoprazole Sodium 40 mg DAILY PO 03/26/25 10:00 Cancel Vancomycin HCl 0 ml @ 0 mls/hr UD IV 03/25/25 14:45 Albuterol 2.5 mg Q6HR NEB 03/25/25 18:00 03/28/25 11:49 2.5 MG Albuterol 2.5 mg Q4HPRN PRN NEB 03/25/25 14:45 Ipratropium [place] 0.5 mg Q6HR NEB 03/25/25 18:00 03/28/25 11:49 0.5 MG Dextrose 50 ml UD PRN IV 03/25/25 15:00 Ipratropium [place] 0.5 mg Q4HPRN PRN NEB 03/25/25 15:00 Pantoprazole Sodium 40 mg DAILY IV 03/26/25 10:00 03/28/25 11:16 40 MG Epoetin Carlos-epbx 4,000 unit MWF SC 03/26/25 10:00 03/28/25 10:00 4,000 UNIT Metoprolol Succinate 100 mg DAILY PO 03/28/25 10:00 03/28/25 11:19 100 MG Examination General: Patient oriented in person, place, and time. Can follow basic commands. HEENT: Normocephalic, atraumatic, moist mucous membrane Chest/Respiratory/pulmonary: Presence of dialysis catheter in right pectoral region, increased work of breathing, decreased breath sounds bilaterally, no associated crackles or wheezes. Cardiovascular: Irregular rate and rhythm Abdomen: Normal bowel sounds, abdomen nondistended, soft, no pain to palpation in any of the abdominal quadrants, no palpable masses. Extremities: No signs of deformities, both feet are edematous, both feet are cold to the touch Peripheral pulses 3+ radial right, 3+ radials soft, decreased pulses in both feet Skin: No rashes or pruritus Neurological: Intact cranial nerves, patient only in person laboratory and microbiology Laboratory Tests 03/28/25 04:48 Test 03/28/25 04:48 Range/Units Serum Glucose 90 74-106 mg/dL Microbiology Date/Time Source Procedure Growth Status 03/26/25 16:30 Nose MRSA Screen - Final Complete 03/25/25 09:23 Blood Blood Culture - Preliminary NO GROWTH AFTER 72 HOURS OF INCUBATION. Resulted Problem List/Assessment/Plan Problem List/Assessment/Plan Assessment and Plan: Sepsis, possibly due to UTI Lactic acidosis due to above -IV fluids -Cefepime IV daily -Vancomycin IV daily -Blood cultures: Preliminary: No growth at 72 hours -Urine culture unable to obtain MRSA + Nares -Mupirocin ointment both nares daily Acute on chronic hypoxic respiratory failure, possible due to above -3L O2 on NC -Ipratropium bromide 0.5 mg Nebulizer PRN -Albuterol 2.5 mg nebulizer [place] Possible Wernicke-Korsakoff Syndrome Possible Acute Metabolic Encephalopathy due to above -Thiamine 500 mg IV , discontinued AFib with RVR -Metoprolol 50 mg BID ESRD on dialysis -Had dialysis 03/26/2025 -Had dialysis 03/27/2025 -Monitor renal function Anemia possibly due to ESRD -Monitor H and H -Retacrit 4000 Unit SC MWF Type 2 Diabetes Mellitus -Accu-chek -Carbohydrate consistent diet Hyperlipidemia -Continue home medications Hypertension -Continue home medications History of Paroxysmal Afib on eliquis History of Chronic Diastolic Heart Failure, not exacerbated -Cardiac diet History of CAD History of CVA History of GERD -Protonix 40 mg IV daily DVT prophylaxis: Lovenox 30 mg IV Case discussed with Dr. Avelar. Goals of care discussed with the patient's nurse for over 20 minutes. Plan discussed with: Other (RN) Date of Service: Mar 28, 2025 Billing Provider: SUDHAKAR AVELAR MD Common Visit Codes: [id number] INP/OBS CARE(HIGH) TERRIE JUDGE RESIDENT Mar 28, 2025 15:20 SUDHAKAR AVELAR MD Apr 03, 2025 19:53
[2025-03-28] MEDS: MUPIROCIN 2% OINT 15gm or 22gm FOR MRSA NARES EACHNOSTRI SCH (21:55)
[2025-03-29] VITALS (17 sets, daily range): BP systolic 108–130; BP diastolic 62–79; PULSE 74–100; RESP 16–20; TEMP 96.3–98.3; O2SAT 93–100
[2025-03-29] MEDS ORDERED: SODIUM CHL 0.9% 1000 ML BAG XX ONE (07:00)
[2025-03-29 08:05] LABS: Hemoglobin 8.3 g/dL (13.5-17.5); Nucleated Red Blood Cells % 0.1 %
[2025-03-29 08:08] LABS: Hematocrit 27.0 % (41.0-53.0); Mean Corpuscular Hemoglobin 31.1 pg (28.0-32.0); Mean Corpuscular Volume 100.8 fL (80.0-100.0)
[2025-03-29 08:22] LABS: Anion Gap 9 (5-15); Chloride 100 mmol/L (98-107); Potassium 4.2 mmol/L (3.5-5.1); Sodium 141 mmol/L (136-145)
[2025-03-29 08:23] LABS: Carbon Dioxide 32 mmol/L (20-31)
[2025-03-29 08:24] LABS: Calcium 9.3 mg/dL (8.7-10.4)
[2025-03-29 08:28] LABS: Glucose 75 mg/dL (74-106)
[2025-03-29 08:29] LABS: BUN/Creatinine Ratio 7.0 (10.0-20.0); Blood Urea Nitrogen 36 mg/dL (9-23)
--- NOTE | 2025-03-29 12:52 | DVHPN2 ---
Progress Note Date Seen: Mar 29, 2025 Has the PT tested + for MRSA If YES, has PT been informed?: Yes Medical Necessity Reason Pt with a Central, PICC or Fol: No Subjective Changes from previous H/P or p: No Changes Objective vital signs Vital Sign Date Time Temp Pulse Resp B/P (MAP) Pulse Ox O2 Delivery O2 Flow Rate FiO2 03/29/25 11:19 74 18 96 03/29/25 11:13 Nasal Cannula* 2 28 03/29/25 09:00 96.3 108/62 (77) 96.3 Total Intake and Output 03/28/25 03/28/25 03/29/25 15:00 23:00 07:00 Intake Total 1230 ml 0 ml Balance 1230 ml 0 ml medications Current Medications Medications Dose Ordered Sig/Carmen Route Start Time Stop Time Status Last Admin Dose Admin Cefepime HCl 50 ml @ 12.5 mls/hr DAILY IV 03/26/25 10:00 03/28/25 10:00 12.5 MLS/HR Enoxaparin Sodium 30 mg DAILY SC 03/26/25 10:00 03/28/25 11:16 30 MG Aspirin 81 mg DAILY PO 03/26/25 10:00 03/28/25 11:17 81 MG Atorvastatin Calcium 20 mg HS PO 03/26/25 22:00 03/28/25 21:54 20 MG Losartan Potassium 25 mg BID PO 03/25/25 22:00 03/28/25 21:55 25 MG Pantoprazole Sodium 40 mg DAILY PO 03/26/25 10:00 Cancel Vancomycin HCl 0 ml @ 0 mls/hr UD IV 03/25/25 14:45 Albuterol 2.5 mg Q6HR NEB 03/25/25 18:00 03/29/25 11:13 2.5 MG Albuterol 2.5 mg Q4HPRN PRN NEB 03/25/25 14:45 Ipratropium [place] 0.5 mg Q6HR NEB 03/25/25 18:00 03/29/25 11:13 0.5 MG Dextrose 50 ml UD PRN IV 03/25/25 15:00 Ipratropium [place] 0.5 mg Q4HPRN PRN NEB 03/25/25 15:00 Pantoprazole Sodium 40 mg DAILY IV 03/26/25 10:00 03/28/25 11:16 40 MG Epoetin Carlos-epbx 4,000 unit MWF SC 03/26/25 10:00 03/28/25 10:00 4,000 UNIT Metoprolol Succinate 100 mg DAILY PO 03/28/25 10:00 03/28/25 11:19 100 MG Mupirocin 1 applic BID EACHNOSTRI 03/28/25 22:00 04/02/25 21:59 03/28/25 21:55 1 APPLIC Examination: GENERAL:Normal, LUNGS:Abnormal, CVS:Abnormal laboratory and microbiology Laboratory Tests 03/29/25 06:10 Test 03/29/25 06:10 Range/Units Serum Glucose 75 74-106 mg/dL Microbiology Date/Time Source Procedure Growth Status 03/26/25 16:30 Nose MRSA Screen - Final Complete 03/25/25 09:23 Blood Blood Culture - Preliminary NO GROWTH AFTER 72 HOURS OF INCUBATION. Resulted Problem List/Assessment/Plan Problem List/Assessment/Plan 80 year old Male PMH ESRD, CVA, HTN, COPD, CHF p/w weakness ESRD HTN CHF COPD sepsis , leukocytosis Atrial fibrillation HD today, conservative fluid removal goal, avoid hypotension ABX, kang cultures Monitor for daily assessment Plan discussed with: Patient My Orders My Orders Orders - CLAUDE IZAGUIRRE MD Procedure Category Date Status Time Hemodialysis Orders ORDERS 03/29/25 Transmitted 07:00 Dialysis Nursing LULY 03/29/25 In Process Message 07:00 Document Fluid Input LULY 03/29/25 In Process And Outpu 07:00 Dietary Evaluation Review Comments: CCHO-75 Renal Standard, Cardiac soft diet Expected Outcomes/Goals: controlled Glucose, avoid nephrotic syndrome and maintail Body Wt CLAUDE IZAGUIRRE MD Mar 29, 2025 12:52
--- NOTE | 2025-03-29 13:09 | DVH ---
INDICATION: Follow up PNA TECHNIQUE: Single frontal view of the chest was obtained COMPARISON: XY CHEST PORTABLE on DOS: 03/27/25, XY CHEST PORTABLE on DOS: 03/26/25, XY CHEST PORTABLE o n DOS: 03/25/25, XY CHEST PORTABLE on DOS: 02/20/25, XY CHEST PORTABLE on DOS: 02/18/25, XY CHEST PORTAB LE on DOS: 03/27/25 FINDINGS: Lines and Tubes: Tunneled right central venous catheter in satisfactory position. Lungs: Left mid and lower lobe airspace disease. Pleura: No effusion. No pneumothorax. Cardiomediastinal contours: Cardiomegaly Bones: Unremarkable IMPRESSION: No significant interval change.
[2025-03-29] MEDS: VANCOMYCIN 500mg/100mL 100 ML IV ONE (16:19)
--- NOTE | 2025-03-29 18:39 | DVHPNRES ---
Progress Note Date Seen: Mar 29, 2025 Resident Creating Document: TERRIE JUDGE RESIDENT Has the PT tested + for MRSA If YES, has PT been informed?: Yes Medical Necessity Reason Pt with a Central, PICC or Fol: No Medical Necessity Reason Patient is an 80-year-old male with prior medical history of CAD, CHF, COPD, type 2 diabetes mellitus, BPH, dementia, hyperlipidemia, hypertension, ESRD on dialysis, CVA, and paroxysmal AFib on Eliquis who was brought to the ED via EMS from [place] [facility] chief complaint of generalized weakness. History is limited to previous record due to patient's condition and no contact information for family. Per the record, onset of generalized weekend approximately 1 week prior to presentation, was progressed to be associated with shortness of breaths, prompting staff from his boarding facility to EMS. Per the record, the patient has been on Augmentin for 3 days due to a UTI. On evaluation in the ED, he was in moderate distress, oriented only in person, tachycardic, tachypneic, and saturating 96% on 4L with NC, per the record this is more than his usual amount of oxygen. Initial labs show WBCs 17.4, hemoglobin 9.9, hematocrit 32.5, platelets 226, sodium 139, potassium 3.6, BUN 31, creatinine 5.65, GFR 10, lactic acid 1.4 trending to 2.1, negative troponins, and BNP 386.07. Chest x-ray shows cardiomegaly with pulmonary vascular congestion. Sepsis protocol was initiated patient was admitted for workup and antibiotic therapy. At the time of evaluation, the patient was oriented only in person, disoriented in place and time. He was unable to answer questions regarding his current state. Follow-up labs significant for WBCs 16.4, lactic acid 0.7,BUN 42, GFR 8, and creatinine 6.39. Acute hepatitis panel negative, influenza A, influenza B, and COVID antigen were negative. Due to suspicion of Wernicke-Korsakoff's syndrome, he was started on high dose thiamine. Patient was seen by nephrology, who scheduled hemodialysis. On evaluation the follow day, patient was more alert and was comfortably tolerating 4L O2 via NC. Patient underwent second hemodialysis session and during this he became increasingly short of breath, desaturating and entered Afib with RVR with HR in the 150s. He was placed on a nonrebreather mask at 15L, dialysis was stopped, and 500 ccs of fluid were returned to the patient. POCUS showed presence of B lines in bilateral lungs, collapsible IVC, study was unable to properly evaluated RV. ABGs were taken, and were within normal range. Once fluids were retuned, heart rate began to decrease, work of breathing lessened, he was placed on an Oxymizer at 10 L, and metoprolol was initiated for rate control. Follow up labs were significant for WBCs 19.6, Creatinine 3.85, and BUN 22. Blood cultures are negative at 72 hours of growth. MRSA screen positive, topical mupirocin has been sent. O2 weaned down to 3L. Patient seen at bedside. Patient is more alert, oriented in person, place, and time. States that he feels well, has slept comfortably, and tolerating oral diet. follow-up labs show WBCs 16.3, hemoglobin 8.3, sodium 141, potassium 4.2, 36, and creatinine 5.16. He has had no further febrile peaks nor episodes of AFib. Patient underwent dialysis today without issue. Follow-up chest x-ray shows left mid and lower lobe airspace disease with no significant interval change from previous studies. He will continue on IV antibiotics and we will continue to monitor. Objective vital signs Vital Sign Date Time Temp Pulse Resp B/P (MAP) Pulse Ox O2 Delivery O2 Flow Rate FiO2 03/29/25 18:28 86 16 100 03/29/25 18:22 Nasal Cannula* 2 28 03/29/25 17:00 97.5 130/79 (96) 97.5 Total Intake and Output 03/28/25 03/28/25 03/29/25 15:00 23:00 07:00 Intake Total 1230 ml 0 ml Balance 1230 ml 0 ml medications Current Medications Medications Dose Ordered Sig/Carmen Route Start Time Stop Time Status Last Admin Dose Admin Enoxaparin Sodium 30 mg DAILY SC 03/26/25 10:00 03/28/25 11:16 30 MG Aspirin 81 mg DAILY PO 03/26/25 10:00 03/28/25 11:17 81 MG Atorvastatin Calcium 20 mg HS PO 03/26/25 22:00 03/28/25 21:54 20 MG Losartan Potassium 25 mg BID PO 03/25/25 22:00 03/28/25 21:55 25 MG Pantoprazole Sodium 40 mg DAILY PO 03/26/25 10:00 Cancel Vancomycin HCl 0 ml @ 0 mls/hr UD IV 03/25/25 14:45 Albuterol 2.5 mg Q6HR NEB 03/25/25 18:00 03/29/25 18:23 2.5 MG Albuterol 2.5 mg Q4HPRN PRN NEB 03/25/25 14:45 Ipratropium [place] 0.5 mg Q6HR NEB 03/25/25 18:00 03/29/25 18:22 0.5 MG Dextrose 50 ml UD PRN IV 03/25/25 15:00 Ipratropium [place] 0.5 mg Q4HPRN PRN NEB 03/25/25 15:00 Pantoprazole Sodium 40 mg DAILY IV 03/26/25 10:00 03/28/25 11:16 40 MG Epoetin Carlos-epbx 4,000 unit MWF SC 03/26/25 10:00 03/28/25 10:00 4,000 UNIT Metoprolol Succinate 100 mg DAILY PO 03/28/25 10:00 03/28/25 11:19 100 MG Mupirocin 1 applic BID EACHNOSTRI 03/28/25 22:00 04/02/25 21:59 03/29/25 12:59 1 APPLIC Cefepime HCl 50 ml @ 12.5 mls/hr DAILY@2200 IV 03/29/25 22:00 Examination General: Patient oriented only in person, disoriented in place and time. Can follow basic commands. HEENT: Normocephalic, atraumatic, moist mucous membrane Chest/Respiratory/pulmonary: Presence of dialysis catheter in right pectoral region, increased work of breathing, decreased breath sounds bilaterally, no associated crackles or wheezes. Cardiovascular: Normal RRR Abdomen: Normal bowel sounds, abdomen nondistended, soft, no pain to palpation in any of the abdominal quadrants, no palpable masses. Extremities: No signs of deformities, no peripheral edema present at the lower extremities, both feet are cold to the touch Peripheral pulses 3+ radial right, 3+ radials soft, decreased pulses in both feet Skin: No rashes or pruritus Neurological: Intact cranial nerves, patient only in person laboratory and microbiology Laboratory Tests 03/29/25 06:10 Test 7/24/25 06:10 Range/Units Serum Glucose 75 74-106 mg/dL Microbiology Date/Time Source Procedure Growth Status 03/26/25 16:30 Nose MRSA Screen - Final Complete 03/25/25 09:23 Blood Blood Culture - Preliminary NO GROWTH AFTER 72 HOURS OF INCUBATION. Resulted Problem List/Assessment/Plan Problem List/Assessment/Plan Assessment and Plan: Sepsis, possibly due to UTI Lactic acidosis due to above -IV fluids -Cefepime IV daily -Vancomycin IV daily -Blood cultures: Preliminary: No growth at 72 hours -Urine culture unable to obtain MRSA + Nares -Mupirocin ointment both nares daily Acute on chronic hypoxic respiratory failure, possible due to above -3L O2 on NC -Ipratropium bromide 0.5 mg Nebulizer PRN -Albuterol 2.5 mg nebulizer NC Possible Wernicke-Korsakoff Syndrome Possible Acute Metabolic Encephalopathy due to above -Thiamine 500 mg IV , discontinued AFib with RVR -Metoprolol 50 mg BID - ESRD on dialysis -Had dialysis 03/26/2025 -Had dialysis 03/27/2025 -Monitor renal function Anemia possibly due to ESRD -Monitor H and H -Retacrit 4000 Unit SC MWF Type 2 Diabetes Mellitus -Accu-chek -Carbohydrate consistent diet Hyperlipidemia -Continue home medications Hypertension -Continue home medications History of Paroxysmal Afib on eliquis History of Chronic Diastolic Heart Failure, not exacerbated -Cardiac diet History of CAD History of CVA History of GERD -Protonix 40 mg IV daily DVT prophylaxis: Lovenox 30 mg IV Case discussed with Dr. Avelar. Goals of care discussed with the patient's nurse for over 20 minutes. Plan discussed with: Daughter My Orders My Orders Orders - TERRIE JUDGE RESIDENT Procedure Category Date Status Time 1 View Decubitus XY 03/29/25 Resulted Chest Xray 11:48 Dietary Evaluation Review Comments: CCHO-75 Renal Standard, Cardiac soft diet Expected Outcomes/Goals: controlled Glucose, avoid nephrotic syndrome and maintail Body Wt Date of Service: Mar 29, 2025 Billing Provider: SUDHAKAR AVELAR MD Common Visit Codes: [id number] INP/OBS CARE(HIGH) TERRIE JUDGE RESIDENT Mar 29, 2025 18:39 SUDHAKAR AVELAR MD Apr 05, 2025 13:16
[2025-03-29] MEDS: CEFEPIME 1GM/ 50ML 50 ML IV SCH (21:51)
[2025-03-30] VITALS (9 sets, daily range): BP systolic 136–155; BP diastolic 90–99; PULSE 79–104; RESP 16–20; TEMP 97.5–97.9; O2SAT 94–100
[2025-03-30 07:16] LABS: Hemoglobin 9.9 g/dL (13.5-17.5); Mean Corpuscular Volume 103.4 fL (80.0-100.0)
[2025-03-30 07:19] LABS: Hematocrit 31.9 % (41.0-53.0); Mean Corpuscular Hemoglobin 31.9 pg (28.0-32.0); Nucleated Red Blood Cells % 0.1 %
[2025-03-30 07:21] LABS: Chloride 102 mmol/L (98-107); Potassium 4.5 mmol/L (3.5-5.1); Sodium 138 mmol/L (136-145)
[2025-03-30 07:22] LABS: Anion Gap 9 (5-15); Calcium 9.4 mg/dL (8.7-10.4); Carbon Dioxide 27 mmol/L (20-31)
[2025-03-30 07:27] LABS: BUN/Creatinine Ratio 6.4 (10.0-20.0); Glucose 76 mg/dL (74-106)
[2025-03-30 07:31] LABS: Blood Urea Nitrogen 27 mg/dL (9-23)
--- NOTE | 2025-03-30 11:00 | DVHPN2 ---
Progress Note - Dictate Date Seen: Mar 30, 2025 Has the PT tested + for MRSA If YES, has PT been informed?: Yes Medical Necessity Reason Pt with a Central, PICC or Fol: No Subjective Awake and alert vital signs Vital Sign Date Time Temp Pulse Resp B/P (MAP) Pulse Ox O2 Delivery O2 Flow Rate FiO2 03/30/25 10:00 94 Nasal Cannula 2.0 03/30/25 10:00 28 03/30/25 09:36 97.6 95 20 138/99 (112) 97.6 Total Intake and Output 03/29/25 03/29/25 03/30/25 15:00 23:00 07:00 Intake Total 300 ml 250 ml Balance 300 ml 250 ml medications Current Medications Medications Dose Ordered Sig/Carmen Route Start Time Stop Time Status Last Admin Dose Admin Enoxaparin Sodium 30 mg DAILY SC 03/26/25 10:00 03/30/25 08:44 30 MG Aspirin 81 mg DAILY PO 03/26/25 10:00 03/30/25 08:44 81 MG Atorvastatin Calcium 20 mg HS PO 03/26/25 22:00 03/29/25 21:53 20 MG Losartan Potassium 25 mg BID PO 03/25/25 22:00 03/30/25 08:45 25 MG Pantoprazole Sodium 40 mg DAILY PO 03/26/25 10:00 Cancel Vancomycin HCl 0 ml @ 0 mls/hr UD IV 03/25/25 14:45 Albuterol 2.5 mg Q6HR NEB 03/25/25 18:00 03/30/25 07:06 2.5 MG Albuterol 2.5 mg Q4HPRN PRN NEB 03/25/25 14:45 Ipratropium [place] 0.5 mg Q6HR NEB 03/25/25 18:00 03/30/25 07:06 0.5 MG Dextrose 50 ml UD PRN IV 03/25/25 15:00 Ipratropium [place] 0.5 mg Q4HPRN PRN NEB 03/25/25 15:00 Pantoprazole Sodium 40 mg DAILY IV 03/26/25 10:00 03/30/25 08:44 40 MG Epoetin Carlos-epbx 4,000 unit MWF SC 03/26/25 10:00 03/30/25 08:43 4,000 UNIT Metoprolol Succinate 100 mg DAILY PO 03/28/25 10:00 03/30/25 08:45 100 MG Mupirocin 1 applic BID EACHNOSTRI 03/28/25 22:00 04/02/25 21:59 03/30/25 08:46 1 APPLIC Cefepime HCl 50 ml @ 12.5 mls/hr DAILY@2200 IV 03/29/25 22:00 03/29/25 21:51 12.5 MLS/HR objective Gen: nad heent: nc/at, mmm lungs: cta anteriorly cvs: no rub abd: soft, bowel sounds audible neuro: alert and oriented laboratory and microbiology Laboratory Tests 03/30/25 06:25 Test 03/30/25 06:25 Range/Units Serum Glucose 76 74-106 mg/dL Assessment/Plan ESRD HTN CHF COPD sepsis , leukocytosis Atrial fibrillation - tentatively for dialysis March 31 - clinically stable from Nephrology perspective Dietary Evaluation Review Comments: CCHO-75 Renal Standard, Cardiac soft diet Expected Outcomes/Goals: controlled Glucose, avoid nephrotic syndrome and maintail Body Wt Plan discussed with: Patient, Other MARTIN BECKER MD Mar 30, 2025 11:00
[2025-03-30] MEDS ORDERED: LEVO750T40 PO (11:57)
[2025-03-30] MEDS ORDERED: DOXY-286 PO (11:57)
[2025-03-30] MEDS ORDERED: MUPI2OIN2 EX (11:57)
[2025-03-30] MEDS ORDERED: METO1TAB9 PO (11:57)
--- NOTE | 2025-03-30 13:12 | DVHDSRES ---
Discharge Summary Date of Admission Resident Creating Document: TERRIE JUDGE RESIDENT Mar 25, 2025 at 14:33 Date of Discharge: Mar 30, 2025 Admitting Diagnosis Sepsis Labs/Diagnostic Data: Laboratory Results Test 03/30/25 06:25 03/28/25 04:48 03/27/25 14:42 03/27/25 10:00 White Blood Count 13.6 10^3/uL (4.4-10.8) Red Blood Count 3.09 10^6/uL (4.5-5.90) Hemoglobin 9.9 g/dL (13.5-17.5) Hematocrit 31.9 % (41.0-53.0) Mean Corpuscular Volume 103.4 fL (80.0-100.0) Mean Corpuscular Hemoglobin 31.9 pg (28.0-32.0) Mean Corpuscular Hemoglobin Concent 30.9 g/dL (32.0-36.0) Red Cell Distribution Width 17.4 % (11.8-14.3) Platelet Count 188 10^3/uL (140-450) Mean Platelet Volume 7.6 fL (6.9-10.8) Neutrophils (%) (Auto) 80.5 % (37.0-80.0) Lymphocytes (%) (Auto) 6.3 % (10.0-50.0) Monocytes (%) (Auto) 7.9 % (0.0-12.0) Eosinophils (%) (Auto) 4.7 % (0.0-7.0) Basophils (%) (Auto) 0.6 % (0.0-2.0) Neutrophils # (Auto) 10.9 10 ^3/uL (1.6-8.6) Lymphocytes # (Auto) 0.8 10 ^3/uL (0.4-5.4) Monocytes # (Auto) 1.1 10 ^3/uL (0-1.3) Eosinophils # (Auto) 0.6 10 ^3/uL (0-0.8) Basophils # (Auto) 0.1 10 ^3/uL (0-0.2) Nucleated Red Blood Cells 0.1 % Sodium Level 138 mmol/L (136-145) Potassium Level 4.5 mmol/L (3.5-5.1) Chloride Level 102 mmol/L (98-107) Carbon Dioxide Level 27 mmol/L (20-31) Anion Gap 9 (5-15) Blood Urea Nitrogen 27 mg/dL (9-23) Creatinine 4.23 mg/dL (0.700-1.30) Glomerular Filtration Rate Calc 13 mL/min (>90) BUN/Creatinine Ratio 6.4 (10.0-20.0) Serum Glucose 76 mg/dL (74-106) Calcium Level 9.4 mg/dL (8.7-10.4) Random Vancomycin Level 21.4 ug/mL (5-10) Total Bilirubin 0.9 mg/dL (0.2-1.0) Aspartate Amino Transferase (AST) 19 U/L (13-40) Alanine Aminotransferase (ALT) 11 U/L (7-40) Alkaline Phosphatase 95 U/L (46-116) Total Protein 6.2 g/dL (5.7-8.2) Albumin 3.3 g/dL (3.2-4.8) Blood Gas Specimen Type Arterial Blood Gas Sample Site Left radial Blood Gas Patient Temperature 37.0 Arterial Blood Date Drawn [id number] Arterial Blood pH 7.401 (7.350-7.450) Arterial Blood Partial Pressure CO2 45.5 mmHg (35.0-48.0) Arterial Blood Partial Pressure O2 301.1 mmHg (83.0-108.0) Arterial Blood HCO3 27.6 mmol/L (21.0-28.0) Arterial Blood Oxygen Saturation 99.7 % (94.0-98.0) Arterial Blood Base Excess 2.4 mmol/L (-2.0-3.0) Arterial Blood Oxyhemoglobin 97.9 % (94.0-98.0) Arterial Blood Carboxyhemoglobin 1.3 % (0.5-1.5) Arterial Blood Methemoglobin 0.5 % (0.0-1.5) Cornelio Test Yes Blood Gas Total Hemoglobin 10.20 g/dL (13.5-17.5) Blood Gas Liter Flow 15.00 Blood Gas Modality Mask - nrb FiO2 % 100.0 Blood Gas Critical Value Read Back Yes Blood Gas Notified Whom eliseo Avelar md Blood Gas Notified Time [id number] Blood Gas Notified By Material Control Specialist [id number] [email or web address] POC Glucose 126 mg/dl (70-106) Test 03/27/25 03:35 03/26/25 13:20 03/26/25 04:40 03/25/25 12:59 Phosphorus Level 2.9 mg/dL (2.4-5.1) Influenza Type A Antigen Negative (Negative) Influenza Type B Antigen Negative (Negative) SARS-CoV-2 Antigen (Rapid) Negative (NEGATIVE) Hemoglobin A1c 4.2 % A1C (<5.7) Iron Level 23 ug/dL (65-175) Total Iron Binding Capacity 162 ug/dL (250-425) Percent Iron Saturation 14.2 % (20-55) Ferritin 1622.0 ng/mL (22-322) Hepatitis A IgM Antibody Negative Hepatitis B Surface Antigen Negative (Negative) Hepatitis B Core IgM Antibody Negative (Negative) Hepatitis C Antibody Negative (Negative) Lactic Acid Level 1.7 mmol/L (0.4-2.0) Test 03/25/25 09:08 Prothrombin Time 11.9 sec (9.3-11.8) Prothrombin Time INR 1.14 (0.9-1.15) Activated Partial Thromboplast Time 31.6 SEC (24.5-34.5) B-Type Natriuretic Peptide 386.07 pg/mL (0-100) Other Laboratory Tests 03/30/25 06:25 Brief Hx & Hospital Course: Patient is an 80-year-old male with prior medical history of CAD, CHF, COPD, type 2 diabetes mellitus, BPH, dementia, hyperlipidemia, hypertension, ESRD on dialysis, CVA, and paroxysmal AFib on Eliquis who was brought to the ED via EMS from [facility] chief complaint of generalized weakness. History is limited to previous record due to patient's condition and no contact information for family. Per the record, onset of generalized weekend approximately 1 week prior to presentation, was progressed to be associated with shortness of breaths, prompting staff from his boarding facility to EMS. Per the record, the patient has been on Augmentin for 3 days due to a UTI. On evaluation in the ED, he was in moderate distress, oriented only in person, tachycardic, tachypneic, and saturating 96% on 4L with NC, per the record this is more than his usual amount of oxygen. Initial labs show WBCs 17.4, hemoglobin 9.9, hematocrit 32.5, platelets 226, sodium 139, potassium 3.6, BUN 31, creatinine 5.65, GFR 10, lactic acid 1.4 trending to 2.1, negative troponins, and BNP 386.07. Chest x-ray shows cardiomegaly with pulmonary vascular congestion. Sepsis protocol was initiated patient was admitted for workup and antibiotic therapy. At the time of evaluation, the patient was oriented only in person, disoriented in place and time. He was unable to answer questions regarding his current state. Follow-up labs significant for WBCs 16.4, lactic acid 0.7,BUN 42, GFR 8, and creatinine 6.39. Acute hepatitis panel negative, influenza A, influenza B, and COVID antigen were negative. Due to suspicion of Wernicke-Korsakoff's syndrome, he was started on high dose thiamine. Patient was seen by nephrology, who scheduled hemodialysis. On evaluation the follow day, patient was more alert and was comfortably tolerating 4L O2 via NC. Patient underwent second hemodialysis session and during this he became increasingly short of breath, desaturating and entered Afib with RVR with HR in the 150s. He was placed on a nonrebreather mask at 15L, dialysis was stopped, and 500 ccs of fluid were returned to the patient. POCUS showed presence of B lines in bilateral lungs, collapsible IVC, study was unable to properly evaluated RV. ABGs were taken, and were within normal range. Once fluids were retuned, heart rate began to decrease, work of breathing lessened, he was placed on an Oxymizer at 10 L, and metoprolol was initiated for rate control. Follow up labs were significant for WBCs 19.6, Creatinine 3.85, and BUN 22. Blood cultures are negative at 72 hours of growth. MRSA screen positive, topical mupirocin has been sent. O2 weaned down to 3L. Follow-up chest x-ray shows left mid and lower lobe airspace disease with no significant interval change from previous studies. He underwent his third session of hemodialysis with no issues. He has progressed favorably with no further febrile spikes or episodes of Afib. On evaluation today, patient is states he feels well, per his nurse he has slept well, and is tolerating 2L O2 comfortably, and is tolerating oral diet. Follow up labs significant for improving leukocytosis and blood cultures are negative after 5 days of growth, urine cultures could not be collected due to patient's anuric status. Vitals have remained stable. He was seen by nephrology who consider him clinically stable from their perspective. He is considered stable for discharge home with oral antibiotics and his home medications. He has orders to follow up with his PCP in 2 weeks. Physical Exam: General: Appears comfortable, Patient oriented in person, place and time. Can follow basic commands. HEENT: Normocephalic, atraumatic, moist mucous membrane Chest/Respiratory/pulmonary: Presence of dialysis catheter in right pectoral region, Nasal cannula with 2L O2 present, normal work of breathing, decreased breath sounds bilaterally, no associated crackles or wheezes. Cardiovascular: Normal RRR Abdomen: Normal bowel sounds, abdomen nondistended, soft, no pain to palpation in any of the abdominal quadrants, no palpable masses. Extremities: No signs of deformities, no peripheral edema present at the lower extremities, both feet are cold to the touch Peripheral pulses 3+ radial right, 3+ radials soft, decreased pulses in both feet Skin: No rashes or pruritus Neurological: Intact cranial nerves, no focal deficits Case discussed with Dr. Avelar. Goals of care discussed with the patient and his daughter, Agatha, who states that she understands and agrees. Operations or Procedures XY CHEST PORTABLE, HISTORY: sob COMPARISON: XY CHEST PORTABLE on DOS: 02/20/25, XY CHEST PORTABLE on DOS: 02/18/25, XY CHEST XRAY 1 VIEW on DOS: 01/11/25 XY CHEST PORTABLE on DOS: 02/20/25, XY CHEST PORTABLE on DOS: 02/18/25, XY CHEST XRAY 1 VIEW on DOS: 01/11/25 TECHNICAL DATA: 1 view of the chest was obtained. FINDINGS: Lines and tubes: A TD cath is seen. Cardiomediastinal silhouette: Enlarged Pulmonary vasculature: Prominent Lung expansion: Low Lung airspace: normal Lung interstitium: normal Pleura: normal Pneumothorax: no Bones: Unremarkable Other: no IMPRESSION: Cardiomegaly with pulmonary vascular congestion. CHEST RADIOGRAPH Indication: sob Technique: Single frontal view of the chest was obtained COMPARISON: XY CHEST PORTABLE on DOS: 03/25/25, XY CHEST PORTABLE on DOS: 02/20/25, XY CHEST PORTABLE on DOS: 02/18/25, XY CHEST XRAY 1 VIEW on DOS: 01/11/25, XY CHEST XRAY 1 VIEW on DOS: 03/13/24 FINDINGS: Lines and Tubes: Right permCath unchanged in position. Lungs: Persistent diffuse increased prominence of the pulmonary vasculature. No evidence of focal consolidation. Pleura: No effusion. No pneumothorax. Cardiomediastinal contours: Cardiomegaly. Bones: Unremarkable IMPRESSION: 1. Cardiomegaly and diffuse increased prominence of the pulmonary vasculature. 2. Right PermCath. CHEST RADIOGRAPH Indication: SOB Technique: Single frontal view of the chest was obtained COMPARISON: XY CHEST PORTABLE on DOS: 03/26/25, XY CHEST PORTABLE on DOS: 03/25/25, XY CHEST PORTABLE on DOS: 02/20/25, XY CHEST PORTABLE on DOS: 02/18/25, XY CHEST XRAY 1 VIEW on DOS: 01/11/25 FINDINGS: Lines and Tubes: Tunneled right central venous catheter in satisfactory position. Lungs: Left mid and lower lobe airspace disease. Pleura: No effusion. No pneumothorax. Cardiomediastinal contours: Cardiomegaly Bones: Unremarkable IMPRESSION: No significant interval change. INDICATION: Follow up PNA TECHNIQUE: Single frontal view of the chest was obtained COMPARISON: XY CHEST PORTABLE on DOS: 03/27/25, XY CHEST PORTABLE on DOS: 03/26/25, XY CHEST PORTABLE on DOS: 03/25/25, XY CHEST PORTABLE on DOS: 02/20/25, XY CHEST PORTABLE on DOS: 02/18/25, XY CHEST PORTABLE on DOS: 03/27/25 FINDINGS: Lines and Tubes: Tunneled right central venous catheter in satisfactory position. Lungs: Left mid and lower lobe airspace disease. Pleura: No effusion. No pneumothorax. Cardiomediastinal contours: Cardiomegaly Bones: Unremarkable IMPRESSION: No significant interval change. Condition at Discharge: Stable Final Diagnosis/Problems List Sepsis, possibly due to UTI Lactic acidosis due to above Acute on chronic hypoxic respiratory failure, possible due to above Possible Wernicke-Korsakoff Syndrome ESRD on dialysis Anemia likely of chronic disease, possibly due to ESRD Type 2 Diabetes Mellitus Hyperlipidemia Hypertension History of Paroxysmal Afib on eliquis History of CAD History of CVA History of GERD Discharge Disposition: Hospice - Home Discharge Instruct/Medications Diet: Cardiac 2g Na,low cholest, Renal Activity: No Restrictions, As Tolerated Follow Up/Referral: Follow up with PCP in 1-2 weeks Medications: Doxycycline Levofloxacin Continue home medications Scheduled Apixaban Base (Eliquis), 1 TAB PO BID, (Reported) Aspirin (Aspir-Low), 81 MG PO DAILY Atorvastatin Calcium (Atorvastatin Calcium), 1 TAB PO DAILY Doxycycline Hyclate (Doxycycline Hyclate), 1 TAB PO BID Levofloxacin Hemihydrate (Levofloxacin), 750 MG PO DAILY Losartan Potassium (Losartan Potassium), 1 TAB PO BID, (Reported) Metoprolol Succinate (Metoprolol Succinate Er), 100 MG PO DAILY Mupirocin (Pseudomonas Fluores (Mupirocin), 2 % EX BID Pantoprazole Sodium Sesquihydr (Pantoprazole Sodium), 1 TAB PO DAILY, (Reported) Sevelamer Carbonate (Sevelamer Carbonate), 1 PKT PO TID, (Reported) Discontinued Medications Amoxicillin & Pot Clavulanate (Augmentin Tablet), 875 MG PO BID Metoprolol Tartrate (Lopressor Tablet), 1 TAB PO BID, (Reported) Ondansetron HCl (Ondansetron), 4 MG PO, (Reported) Discharge Statement: "Patient was advised to return to the ER or call 911 if any headaches, dizziness, shortness of breath, chest pain, abdominal pain, bleeding, fevers, or worsening of medical condition. Patient was counseled about treatment plan, medications, possible side effects, patientverbalized understanding. All questions were answered to the best of my ability. This discharge took greater then 30 minutes in planning, reviewing documentation, counseling the patient, and discussing with other team members." ASSESSMENT ASSESSMENT Assessment Sepsis likely due to UTI Date of Service: Mar 30, 2025 Billing Provider: SUDHAKAR AVELAR MD Common Visit Codes: 71892-KLC/OBS DISCH DAY >30min TERRIE JUDGE RESIDENT Mar 30, 2025 13:12 SUDHAKAR AVELAR MD Apr 05, 2025 13:20
--- NOTE | 2025-04-02 13:21 | ECG ---
[facility] Test Date: 2025-03-27 Test Time: 16:07:56 Pat Name: RUTH JIM Department: ER Room: 0204T A Gender: M K 9 Handler/ Deputy: KATT : 1945 Requested By: BEKA EATON Order Number: [id number] Reading MD: Benja Arroyo Measurements Intervals [place] Rate: 133 P: 0 VA: 171 QRS: 4 QRSD: 72 T: 100 QT: 299 QTc: 445 Interpretive Statements Sinus tachycardia Abnormal R-wave progression, early transition ST depression, probably rate related Artifact in lead(s) I,III,aVR,aVL,V1,V2 Electronically Signed On 04-04-2025 13:59:15 PDT by Benja Arroyo Please click the below link to view image of tracing.
== END 2025-03-30 16:54 | disposition hospice, home (50) | DRG 871 ==
LOC: ER 08:11 → EDBD 08:11 → EDUNIT# 08:11 → OVERFLOW 14:33 → TELE-CENTR 03-29 01:53
PROVIDERS: ADMIT Student in an Organized Health Care Education/Training Program; ATTEND Emergency Medicine
PROC: 5A1D70Z Performance of Urinary Filtration, Intermittent, Less than 6 Hours Per Day (ICD-10-PCS; principal; 2025-03-26)
PROC: 5A1D70Z Performance of Urinary Filtration, Intermittent, Less than 6 Hours Per Day (ICD-10-PCS; 2025-03-27)
PROC: 5A1D70Z Performance of Urinary Filtration, Intermittent, Less than 6 Hours Per Day (ICD-10-PCS; 2025-03-29)
DX: A41.9 Sepsis, unspecified organism (principal); J96.21 Acute and chronic respiratory failure with hypoxia; N18.6 End stage renal disease; I13.2 Hypertensive heart and chronic kidney disease with heart failure and with stage 5 chronic kidney disease, or end stage renal disease; E87.20 Acidosis, unspecified; N39.0 Urinary tract infection, site not specified; I50.32 Chronic diastolic (congestive) heart failure; F04 Amnestic disorder due to known physiological condition; D63.1 Anemia in chronic kidney disease; Z99.2 Dependence on renal dialysis; Z51.5 Encounter for palliative care; J44.9 Chronic obstructive pulmonary disease, unspecified; E11.22 Type 2 diabetes mellitus with diabetic chronic kidney disease; Z20.822 Contact with and (suspected) exposure to COVID-19; N40.0 Benign prostatic hyperplasia without lower urinary tract symptoms; I25.10 Atherosclerotic heart disease of native coronary artery without angina pectoris; K21.9 Gastro-esophageal reflux disease without esophagitis; I48.0 Paroxysmal atrial fibrillation; E78.5 Hyperlipidemia, unspecified; Z86.73 Personal history of transient ischemic attack (TIA), and cerebral infarction without residual deficits; Z82.5 Family history of asthma and other chronic lower respiratory diseases; Z82.49 Family history of ischemic heart disease and other diseases of the circulatory system; Z79.01 Long term (current) use of anticoagulants; Z98.61 Coronary angioplasty status
CPT/HCPCS: 36415; 36600; 71045; 80048; 80053; 80074; 80202; 82728; 82805; 82962; 83036; 83540; 83550; 83605; 83880; 84100; 85025; 85610; 85730; 87040; 87081; 87426; 87804; 90935; 93005; 94640; 96365; 99291; 99292; A4344; G0378; J1642; J2470

== ENCOUNTER 2025-05-14 15:56 | Inpatient (IN) | payer OTHER, MEDICAID ==
[~2025-05-14] VITALS: Ht 182.9 cm; Wt 100.0 kg
[~2025-05-14 15:56] MED LIST changes: -AUG875T PO; +DOXY-286 PO; +LEVO750T40 PO; -MET50T PO; +METO1TAB9 PO; +MUPI2OIN2 EX; -ONDA-155 PO
--- NOTE | 2025-05-14 16:04 | ED.PDOC ---
History of Present Illness HPI Comments 80-year-old male brought by paramedics because he was having chest pain for the past two weeks on and off. Patient was at dialysis today when he stated his chest pain was excruciating with no radiation to the shoulder to the jaw to the back. He has been here recently for the similar symptom. He does have a history of chronic kidney disease on dialysis Wednesday hypertension prostate dementia CVA coronary artery disease diabetes. Unable to get a good history from the patient or the paramedics. Time Seen by MD: 15:58 Primary Care Provider: ISHMAEL Reviewed Notes: Nurses Notes, Medications, Allergies Allergies: Coded Allergies: NO KNOWN ALLERGIES (Unverified , 03/08/18) Home Meds Active Scripts Doxycycline Hyclate (DOXYCYCLINE HYCLATE) 100 Mg Tab, 1 TAB PO BID for 7 Days, #14 TAB Prov:LISE MENDOSA 03/30/25 Levofloxacin Hemihydrate (LEVOFLOXACIN) 750 Mg Tab, 750 MG PO DAILY for 5 Days, #5 TAB Prov:LISE MENDOSA 03/30/25 Mupirocin (Pseudomonas Fluores (Mupirocin) 2 % Oin, 2 % EX BID for 3 Days, #1 OIN Prov:LISE MENDOSA [facility] 03/30/25 Metoprolol Succinate (Metoprolol Succinate Er) 100 Mg Tab, 100 MG PO DAILY for 30 Days, #90 TAB 2 Refills Prov:LISE MENDOSA 03/30/25 Aspirin (Aspir-Low) 81 Mg Tab, 81 MG PO DAILY, #60 TAB Prov:GARLAND BLOUNT MD 03/17/24 Atorvastatin Calcium (ATORVASTATIN CALCIUM) 20 Mg Tab, 1 TAB PO DAILY, #90 TAB 1 Refill Prov:TALA GODINEZ MD 08/04/23 Reported Medications Losartan Potassium (Losartan Potassium) 25 Mg Tab, 1 TAB PO BID for HTN , #90 TAB 1 Refill 01/17/25 Pantoprazole Sodium Sesquihydr (Pantoprazole Sodium) 40 Mg Tab, 1 TAB PO DAILY 07/17/23 Apixaban Base (ELIQUIS) 2.5 Mg Tab, 1 TAB PO BID 07/17/23 Sevelamer Carbonate (Sevelamer Carbonate) 2.4 Gm Pow, 1 PKT PO TID 07/17/23 Information Source: Patient, Emergency Med Personnel Mode of Arrival: EMS Severity: Moderate Timing: Days Duration: Since onset Past Medical History PAST MEDICAL HISTORY: CAD, CHF, COPD, CVA, DM, ESRD, GERD, Gout, High Lipids, HTN, UTI'S Surgical History: PTCA Family History Family History: Reviewed,noncontributory to illness, Family hx of Cancer Social History Smoker: Non-Smoker, Quit Greater Than 1 Year Alcohol: Denies ETOH Use Drugs: Denies Drug Use Lives In: Care Home Constitutional: denies: chills, diaphoresis, fatigue, fever, malaise, sweats, weakness, others EENTM: denies: blurred vision, double vision, ear bleeding, ear discharge, ear drainage, ear pain, ear ringing, eye pain, eye redness, hearing loss, mouth pain, mouth swelling, nasal discharge, nose bleeding, nose congestion, nose pain, photophobia, tearing, throat pain, throat swelling, voice changes, others Respiratory: denies: cough, hemoptysis, orthopnea, SOB at rest, shortness of breath, SOB with excertion, stridor, wheezing, others Cardiovascular: reports: chest pain; denies: dizzy spells, diaphoresis, Dyspnea on exertion, edema, irregular heart beat, left arm pain, lightheadedness, palpitations, PND, syncope, others Gastrointestinal: denies: abdomen distended, abdominal pain, blood streaked bowels, constipated, diarrhea, dysphagia, difficulty swallowing, hematemesis, melena, nausea, poor appetite, poor fluid intake, rectal bleeding, rectal pain, vomiting, others Genitourinary: denies: burning, dysuria, flank pain, frequency, hematuria, incontinence, penile discharge, penile sore, pain, testicle pain, testicle swelling, urgency, others Neurological: denies: dizziness, fainting, headache, left sided numbness, left sided weakness, numbness, paresthesia, pre-existing deficit, right sided numbness, right sided weakness, seizure, speech problems, tingling, tremors, weakness, others Musculoskeletal: denies: back pain, gout, joint pain, joint swelling, muscle pain, muscle stiffness, neck pain, others Integumetry: denies: bruises, change in color, change in hair/nails, dryness, laceration, lesions, lumps, rash, wounds, others Allergic/Immunocompromised: denies: Difficulty Healing, Frequent Infections, Hives, Itching, others Hematologic/Lymphatic: denies: anemia, blood clots, easy bleeding, easy bruising, swollen glands, others Endocrine: denies: excessive hunger, excessive sweating, excessive thirst, excessive urination, flushing, intolerance to cold, intolerance to heat, unexplained weight gain, unexplained weight loss, others Psychiatric: denies: anxiety, bipolar disorder, depression, hopeless, panic disorder, schizophrenia, sleepless, suicidal, others Physical Exam General Appearance: Moderate Distress HEENT: Normal ENT Inspection, Pharynx Normal, TMs Normal Neck: Full Range of Motion, Non-Tender, Normal, Normal Inspection Respiratory: Chest Non-Tender, Lungs Clear, No Accessory Muscle Use, No Respiratory Distress, Normal Breath Sounds Cardiovascular: No Edema, No JVD, No Murmur, No Gallop, Normal Peripheral Pulses, Tachycardia Breast Exam: Deferred Gastrointestinal: No Organomegaly, Non Tender, No Pulsatile Mass, Normal Bowel Sounds, Soft Genitalia: Deferred Pelvic: Deferred Rectal: Deferred Extremities: No calf tenderness, No pedal edema Musculoskeletal : Apperance: Normal Neurologic: Alert (Name) Cerebellar Function: NOT DONE Reflexes: NOT DONE Skin: Normal Color Peripheral Pulses: 3+ Radial (R), 3+ Radial (L) Lymphatic: No Adenopathy Was a procedure done? Was a procedure done?: No EKG EKG : Pulse Rate (adult): 112 Cardiac Rhythm: NSR Differential Dx Considerations may include: Anemia Electrolyte imbalance X-Ray, Labs, Meds, VS Patient alert to name. Complaining of chest pain. Has been here many times for similar condition. Vitals stable. Heart rate tachycardia with premature ventricular contractions. Was given aspirin. Was given nitro. Just had dialysis. Reviewed his previous visit. Waiting for family. Time of 1ST Reevaluation: 16:02 Reevaluation 1ST: Unchanged Patient Education/Counseling: Diagnosis, Treatment, Prognosis Family Education/Counseling: No Family Present Departure 1 Departure Time of Disposition: 16:03 Impression: Primary Impression: End-stage renal disease on hemodialysis Additional Impression: Chest pain of unknown etiology Disposition: 09 ADMITTED INPATIENT Admit to: Med Surg Condition: Guarded Critical Care Note Critical Care Time?: No Stability Stability form required: No Heart Score Heart Score: Heart Score Response (Comments) Value History Slightly Suspicious 0 EKG Normal 0 Age >65 2 Risk Factors >3 or Hx ASHD 2 Troponin Normal limit 0 Total 4 KAMAR JO MD May 14, 2025 16:04
[2025-05-14] MEDS: NITROGLYCERIN 0.4 MG SL TAB SL ONE (16:15)
[2025-05-14 16:34] LABS: Hematocrit 33.1 % (41.0-53.0); Hemoglobin 10.0 g/dL (13.5-17.5); Mean Corpuscular Hemoglobin 30.5 pg (28.0-32.0); Mean Corpuscular Volume 101.1 fL (80.0-100.0); Nucleated Red Blood Cells % 0.1 %
[2025-05-14 17:02] LABS: Albumin 3.6 g/dL (3.2-4.8); Alkaline Phosphatase 91 U/L (46-116); Anion Gap 10 (5-15); BUN/Creatinine Ratio 4.5 (10.0-20.0); Bilirubin, Total 0.4 mg/dL (0.2-1.0); Carbon Dioxide 27 mmol/L (20-31); Chloride 102 mmol/L (98-107); Potassium 3.8 mmol/L (3.5-5.1); Sodium 139 mmol/L (136-145); Total Protein 6.9 g/dL (5.7-8.2)
[2025-05-14 17:05] LABS: Alanine Aminotransferase 9 U/L (7-40); Blood Urea Nitrogen 25 mg/dL (9-23); Calcium 8.4 mg/dL (8.7-10.4); Glucose 110 mg/dL (74-106)
--- NOTE | 2025-05-14 17:06 | DVH ---
EXAM: XY CHEST PORTABLE HISTORY: sob COMPARISON: XY 1 VIEW DECUBITUS CHEST XRAY on DOS: 03/29/25, XY CHEST PORTABLE on DOS: 03/27/25, XY [place] [address] PORTABLE on DOS: 03/26/25, XY CHEST PORTABLE on DOS: 03/25/25, XY CHEST PORTABLE on DOS: 02/20/25 TECHNIQUE: Portable upright AP view of the chest was performed. FINDINGS: There are consolidative infiltrates in the left mid to lower lung. There is left pleural effusion. T he left hemidiaphragm is obscured. The right lung is clear. No pneumothorax. The heart is enlarged . Probable calcified lymph nodes in the left hilum. IMPRESSION: 1. Left mid to lower lung pneumonia and left pleural effusion. 2. The right lung is clear. 3. Cardiomegaly.
[2025-05-14] MEDS ORDERED: MORPHINE SULFATE INJ 2 MG/ml SYRG IV PRN (20:00)
[2025-05-14] MEDS ORDERED: NITROGLYCERIN 0.4 MG SL TAB SL PRN (20:00)
[2025-05-14] MEDS ORDERED: ONDANSETRON HCL 4 MG/2 ML VIAL IV PRN (20:00)
[2025-05-14] MEDS ORDERED: DEXTROSE (50%) 50ML SYRG IV PRN (20:00)
--- NOTE | 2025-05-14 20:17 | ECG ---
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
[2025-05-14] MEDS: ACCU-CHEK COMFORT CURVE STRIP VI SCH (21:27)
[2025-05-14] MEDS: InsuLIN REG 1unit/0.01ml Soln (100units/ml) SC SCH (21:27)
[2025-05-14] MEDS: ATORVASTATIN 20 MG TAB PO SCH (21:58)
[2025-05-14] MEDS: APIXABAN 2.5 MG TAB PO SCH (21:58)
[2025-05-14 23:00] VITALS: O2SAT 98
--- NOTE | 2025-05-14 23:28 | DVHHP2 ---
History of Present Illness Reason for Visit: Chest pain History of Present Illness 80-year-old male presents for evaluation of chest pain. The patient reports having intermittent chest pain for the past two weeks. He states the pain became more intense today. Describes it as substernal sharp with radiation to his shoulder and jaw. Reports also shortness for breath. No other acute complaints reported. Past Medical History CHF, CAD, COPD, CVA, diabetes mellitus, end-stage renal disease, dyslipidemia, hypertension Past Surgical History PTCA, dialysis access Family History Cancer Smoke: No ALCOHOL: none Drugs: None Lives: with Family Review of Systems Review of Systems Review of systems are currently negative otherwise addressed in HPI. Allergies: Coded Allergies: NO KNOWN ALLERGIES (Unverified , 03/08/18) Medications Current Medications Medications Dose Ordered Sig/Carmen Route Start Time Stop Time Status Last Admin Dose Admin Aspirin 81 mg DAILY PO 05/15/25 10:00 Atorvastatin Calcium 20 mg HS PO 05/14/25 22:00 05/14/25 21:58 20 MG Losartan Potassium 25 mg DAILY PO 05/15/25 10:00 Metoprolol Succinate 100 mg DAILY PO 05/15/25 10:00 Apixaban 2.5 mg BID PO 05/14/25 22:00 05/14/25 21:58 2.5 MG Diagnostic Test (Pha) 1 strip ACHS 05/14/25 22:00 05/14/25 21:27 1 STRIP Insulin Human Regular ACHS SC 05/14/25 22:00 Dextrose 50 ml UD PRN IV 05/14/25 20:00 Ondansetron HCl 4 mg Q4HP PRN IV 05/14/25 20:00 Acetaminophen 650 mg Q6HP PRN PO 05/14/25 20:00 Nitroglycerin 0.4 mg Q5MINP PRN SL 05/14/25 20:00 Morphine Sulfate 2 mg Q30M PRN IV 05/14/25 20:00 Exam Vital Signs Vital Signs Date Time Temp Pulse Resp B/P (MAP) Pulse Ox O2 Delivery O2 Flow Rate FiO2 05/14/25 22:00 104 18 161/89 (113) 99 05/14/25 18:58 Nasal Cannula* 3 32 05/14/25 16:00 98.5 98.5 Exam Gen: 80-year-old male in mild distress Skin: Warm, dry, normal color and texture, no rash. HEENT: Normocephalic atraumatic, mucous membranes moist and pink. Neck: Cervical and supraclavicular nodes normal without enlargement, trachea is midline, thyroid gland is normal without masses. Pulmonary: Clear to auscultation and percussion bilaterally. Cardiac: Regular rate and rhythm. No murmur Abdomen: Soft, nontender, nondistended, bowel sounds present all 4 quadrants, no guarding, no rigidity, no organomegaly. Extremities: No cyanosis, clubbing, no edema Neuro: Cranial nerves II through XII grossly intact, normal affect and speech, no focal motor deficits. Labs/Xrays ORDERING PHYSICIAN: GARLAND BLOUNT MD PROCEDURE(s): ECIDC - ECHO 2D MODE CARDIAC DOP REASON: per Dr. Blount order ORDER NUMBER(s): [id number], ACCESSION NUMBER(s): [id number] APPROVED REPORT EXAM: LIMITED Two-dimensional and M-mode echocardiogram with Doppler and color Doppler. Blood Pressure: 107/[address] Blount RISK FACTORS Obesity: Height: 6', Weight: 240 DIMENSIONS LVDd 5.3 (3.8-5.7cm) LA (2D) 4.6 (1.9-4.0cm) Aortic Root 3.6 (2.0- 3.7cm) LVDs 3.7 (2.5-4.0cm) LA (MM) (1.9-4.0cm) Aortic Cusp Exc 1.6 (1.5- 2.0cm) EF (%) 55.0 (55-70%) Rt. Atrium 5.7 (1.9-4.0cm) Asc. Aorta cm IVSd 1.1 (0.7-1.1cm) RV (D) (1.8-2.4cm) PWd 1.1 (0.7-1.1cm) Mitral Valve Mitral Mitral Stenosis E wave 1.10m/s MV Mean GR. mmHg A wave 0.50m/s MV Peak GR. mmHg E/A ratio 2.2 2D MVA cm2 Aortic Valve Aortic Valve Aortic Stenosis V1 0.80m/s AO Mean GR. 9mmHg V2 1.90m/s AO Peak GR. 16mmHg LVOT Diameter 2.0 (1.8-2.4cm) Doppler VINICIO 1.32cm2 Other Information Quality : Technically Limited Rhythm : Technically limited study due to patient position and body habitus. Conclusion MILD LVH AND MILD LV DIASTOLIC DYSFUNCTION MODERATELY DILATED LA LV EF IS 60% DYSKINESIS OF IVS MODERATELY DILATED RV AND RA RV DYSFUNCTION AND DILATATION OF RV IS SEEN AORTIC LEAFLETS ARE MODERATELY CALCIFIED AORTIC VALVE AREA IS 1.4 CM SQUARE MILD AORTIC STENOSIS NO EFFUSION SIGNED BY: ANASTASIYA KOLB MD SIGNED DATE/TIME: 01/13/25 1830 CC: ORDERING PHYSICIAN: KAMAR JO MD PROCEDURE(s): CXRP - CHEST PORTABLE REASON: sob ORDER NUMBER(s): [id number], ACCESSION NUMBER(s): [id number] EXAM: XY CHEST PORTABLE HISTORY: sob COMPARISON: XY 1 VIEW DECUBITUS CHEST XRAY on DOS: 03/29/25, XY CHEST PORTABLE on DOS: 03/27/25, XY CHEST PORTABLE on DOS: 03/26/25, XY CHEST PORTABLE on DOS: 03/25/25, XY CHEST PORTABLE on DOS: 02/20/25 TECHNIQUE: Portable upright AP view of the chest was performed. FINDINGS: There are consolidative infiltrates in the left mid to lower lung. There is left pleural effusion. The left hemidiaphragm is obscured. The right lung is clear. No pneumothorax. The heart is enlarged. Probable calcified lymph nodes in the left hilum. IMPRESSION: 1. Left mid to lower lung pneumonia and left pleural effusion. 2. The right lung is clear. 3. Cardiomegaly. Labs Test 05/14/25 21:26 05/14/25 19:05 05/14/25 16:17 Range/Units POC Glucose 81 70-106 mg/dl Troponin I High Sensitivity 37 </=54 ng/L White Blood Count 7.9 4.4-10.8 10^3/uL Red Blood Count 3.28 L 4.5-5.90 10^6/uL Hemoglobin 10.0 L 13.5-17.5 g/dL Hematocrit 33.1 L 41.0-53.0 % Mean Corpuscular Volume 101.1 H 80.0-100.0 fL Mean Corpuscular Hemoglobin 30.5 28.0-32.0 pg Mean Corpuscular Hemoglobin Concent 30.1 L 32.0-36.0 g/dL Red Cell Distribution Width 17.1 H 11.8-14.3 % Platelet Count 179 140-450 10^3/uL Mean Platelet Volume 7.4 6.9-10.8 fL Neutrophils (%) (Auto) 74.6 37.0-80.0 % Lymphocytes (%) (Auto) 6.7 L 10.0-50.0 % Monocytes (%) (Auto) 9.2 0.0-12.0 % Eosinophils (%) (Auto) 8.7 H 0.0-7.0 % Basophils (%) (Auto) 0.8 0.0-2.0 % Neutrophils # (Auto) 5.9 1.6-8.6 10 ^3/uL Lymphocytes # (Auto) 0.5 0.4-5.4 10 ^3/uL Monocytes # (Auto) 0.7 0-1.3 10 ^3/uL Eosinophils # (Auto) 0.7 0-0.8 10 ^3/uL Basophils # (Auto) 0.1 0-0.2 10 ^3/uL Nucleated Red Blood Cells 0.1 % Sodium Level 139 136-145 mmol/L Potassium Level 3.8 3.5-5.1 mmol/L Chloride Level 102 98-107 mmol/L Carbon Dioxide Level 27 20-31 mmol/L Anion Gap 10 5-15 Blood Urea Nitrogen 25 H 9-23 mg/dL Creatinine 5.61 H 0.700-1.30 mg/dL Glomerular Filtration Rate Calc 10 >90 mL/min BUN/Creatinine Ratio 4.5 L 10.0-20.0 Serum Glucose 110 H 74-106 mg/dL Calcium Level 8.4 L 8.7-10.4 mg/dL Total Bilirubin 0.4 0.2-1.0 mg/dL Aspartate Amino Transferase (AST) 15 13-40 U/L Alanine Aminotransferase (ALT) 9 7-40 U/L Alkaline Phosphatase 91 46-116 U/L Total Protein 6.9 5.7-8.2 g/dL Albumin 3.6 3.2-4.8 g/dL SEPSIS Sepsis Screen Date sepsis recognized/suspect: May 14, 2025 Time Sepsis recognized/suspect: 1901 Recent Procedure: No On Antibiotic Therapy: No Respiratory Rate >20: No Heart Rate >90: Yes Temp<36 C (96.8 F) or >38.3 C: No SBP <90 or MAP <65 mmHG: No New Acute Mental Status Change: No Is the patient on CPAP, BIPAP,: No Physician Orders Chest Portable (05/14/25 16:04) Urinalysis (05/14/25 16:04) Electrocardigram (05/14/25 17:04) Aspirin Tablet (05/15/25 10:00) Atorvastatin (Lipitor) (05/14/25 22:00) Losartan Tablet (Cozaar Tablet) (05/15/25 10:00) Metoprolol Xl Succinate (Toprol Xl) (05/15/25 10:00) Apixaban (Eliquis) (05/14/25 22:00) *[facility] (05/14/25 19:48) Basic Metabolic Panel (05/15/25 04:00) Glucose Blood (Accu-Chek Comfort Curve T (05/14/25 22:00) Insulin R (Human) (Insulin R) (05/14/25 22:00) Dextrose 50% Syringe (05/14/25 20:00) Admit (05/14/25 19:48) Ondansetron Hcl (Zofran) (05/14/25 20:00) Cardiac Diet-2gna,Lofat,Lochol (05/15/25 Breakfast) Condition: Fair (05/14/25 19:48) Acetaminophen Tablet (Tylenol Tablet) (05/14/25 20:00) Bedrest With Bathroom Privileg (05/14/25 19:48) Nitroglycerin Sublingual (Ntrostat Subli (05/14/25 20:00) Morphine Sulfate Injection (05/14/25 20:00) Stat Ekg For Chest Pain (05/14/25 19:48) Notify Of Changes From Base (05/14/25 19:48) Captain Airline Pilot For 24 Hours (05/14/25 19:48) Emergency Dysrhythmia Protocol (05/14/25 19:48) Rhythm Strips Once Every Shift (05/14/25 19:48) Oxygen By Nasal Cannula (05/14/25 19:48) Vital Signs Date Time Temp Pulse Resp B/P (MAP) Pulse Ox O2 Delivery O2 Flow Rate FiO2 05/14/25 22:00 104 18 161/89 (113) 99 05/14/25 20:00 113 29 156/95 (115) 99 05/14/25 18:58 Nasal Cannula* 3 32 05/14/25 18:45 112 05/14/25 18:30 127 21 150/97 (114) 93 05/14/25 16:45 117 05/14/25 16:15 150/97 05/14/25 16:04 112 05/14/25 16:00 98.5 116 18 151/85 97 98.5 05/14/25 15:59 112 Laboratory Tests Test 05/14/25 16:17 White Blood Count 7.9 10^3/uL (4.4-10.8) Medications Medications Dose Ordered Sig/Carmen Route Start Time Stop Time Status Last Admin Dose Admin Apixaban 2.5 mg BID PO 05/14/25 22:00 05/14/25 21:58 2.5 MG Aspirin 325 mg ONCE ONCE PO 05/14/25 16:15 05/14/25 16:16 DC 05/14/25 19:15 325 MG Atorvastatin Calcium 20 mg HS PO 05/14/25 22:00 05/14/25 21:58 20 MG Diagnostic Test (Pha) 1 strip ACHS 05/14/25 22:00 05/14/25 21:27 1 STRIP Assessment/Plan Assessment/Plan Assessment Chest pain Possible community-acquired pneumonia End-stage renal disease, dialysis dependent Hypertension Plan Admit the patient to telemetry to the hospitalist Nephrology consultation Rocephin/azithromycin Med nebs Resume home medications Continue treatment per orders Plan discussed with: Patient My Orders Orders - FBAIÁN LEE AGACNAmelie Procedure Category Date Status Time Aspirin Tablet PHA 05/15/25 In Process 10:00 Atorvastatin (Lipitor) PHA 05/14/25 In Process 22:00 Losartan Tablet PHA 05/15/25 In Process (Cozaar Tablet) 10:00 Metoprolol Xl PHA 05/15/25 In Process Succinate (Toprol Xl) 10:00 Apixaban (Eliquis) PHA 05/14/25 In Process 22:00 *[facility] CONS 05/14/25 Transmitted -[place] 19:48 Basic Metabolic Panel LAB 05/15/25 Verified 04:00 Glucose Blood PHA 05/14/25 In Process (Accu-Chek Comfort 22:00 Insulin R (Human) PHA 05/14/25 In Process (Insulin R) 22:00 Dextrose 50% Syringe PHA 05/14/25 In Process 20:00 Admit ADMIT 05/14/25 Transmitted 19:48 Ondansetron Hcl PHA 05/14/25 In Process (Zofran) 20:00 Cardiac DIET 05/15/25 Transmitted Diet-2gna,Lofat,Lochol Breakfast Condition: Fair [facility] 05/14/25 In Process 19:48 Acetaminophen Tablet PHA 05/14/25 In Process (Tylenol Tablet) 20:00 Bedrest With Bathroom [facility] 05/14/25 In Process Privileg 19:48 Nitroglycerin [facility] 05/14/25 In Process Sublingual (Ntrostat 20:00 Morphine Sulfate PHA 05/14/25 In Process Injection 20:00 Stat Ekg For Chest [facility] 05/14/25 In Process Pain 19:48 Notify Md Of Changes [facility] 05/14/25 In Process From Base 19:48 Captain Airline Pilot For [facility] 05/14/25 In Process 24 Hours 19:48 Emergency Dysrhythmia [facility] 05/14/25 In Process Protocol 19:48 Rhythm Strips Once [facility] 05/14/25 In Process Every Shift 19:48 Oxygen By Nasal RT 05/14/25 Transmitted Cannula 19:48 Date of Service: May 14, 2025 Billing Provider: FABIÁN LEE Common Visit Codes: [id number] INP/OBS CARE (HIGH) FABIÁN LEE May 14, 2025 23:28
[2025-05-14] MEDS ORDERED: ALBUTEROL SULF 2.5 MG/0.5ML(0.5%) NEB SOLN NEB PRN (23:30)
[2025-05-14 23:40] VITALS: BP 161/89; PULSE 102; RESP 20; TEMP 98.5; O2SAT 98
[2025-05-15] VITALS (13 sets, daily range): BP systolic 114–158; BP diastolic 72–116; PULSE 79–116; RESP 16–19; TEMP 97.4–98.3; O2SAT 92–100
--- NOTE | 2025-05-15 07:19 | ECG ---
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
--- NOTE | 2025-05-15 08:55 | DVHINCON2 ---
Date of service: May 15, 2025 Referring Physician Kenny Chavez, nurse practitioner Reason for Consultation End-stage renal disease to manage hemodialysis History of Present Illness Patient is 80-year-old male with past medical history significant for end-stage renal disease on hemodialysis every Wednesday and Wednesday, CAD, CHF, COPD, CVA with left hemiplegia, DM, GERD, Gout, High Lipids, HTN, and UTI'S is admitted from the hemodialysis center with chest pain to rule out acute coronary syndrome Past Medical History PAST MEDICAL HISTORY: CAD, CHF, COPD, CVA, DM, ESRD, GERD, Gout, High Lipids, HTN, UTI'S Past Surgical History Surgical History: PTCA Allergies: Coded Allergies: NO KNOWN ALLERGIES (Unverified , 03/08/18) Home Meds Active Scripts Doxycycline Hyclate (DOXYCYCLINE HYCLATE) 100 Mg Tab, 1 TAB PO BID for 7 Days, #14 TAB Prov:LISE MENDOSA 03/30/25 Levofloxacin Hemihydrate (LEVOFLOXACIN) 750 Mg Tab, 750 MG PO DAILY for 5 Days, #5 TAB Prov:LISE MENDOSA 03/30/25 Mupirocin (Pseudomonas Fluores (Mupirocin) 2 % Oin, 2 % EX BID for 3 Days, #1 OIN Prov:LISE MENDOSA 03/30/25 Metoprolol Succinate (Metoprolol Succinate Er) 100 Mg Tab, 100 MG PO DAILY for 30 Days, #90 TAB 2 Refills Prov:LISE MENDOSA 03/30/25 Aspirin (Aspir-Low) 81 Mg Tab, 81 MG PO DAILY, #60 TAB Prov:GARLAND BLOUNT MD 03/17/24 Atorvastatin Calcium (ATORVASTATIN CALCIUM) 20 Mg Tab, 1 TAB PO DAILY, #90 TAB 1 Refill Prov:TALA GODINEZ MD 08/04/23 Reported Medications Losartan Potassium (Losartan Potassium) 25 Mg Tab, 1 TAB PO BID for HTN , #90 TAB 1 Refill 01/17/25 Pantoprazole Sodium Sesquihydr (Pantoprazole Sodium) 40 Mg Tab, 1 TAB PO DAILY 07/17/23 Apixaban Base (ELIQUIS) 2.5 Mg Tab, 1 TAB PO BID 07/17/23 Sevelamer Carbonate (Sevelamer Carbonate) 2.4 Gm Pow, 1 PKT PO TID 07/17/23 Current Medications Current Medications Medications (Trade) Dose Ordered Sig/Carmen Route PRN Reason Start Time Stop Time Status Last Admin Aspirin 81 mg DAILY PO 05/15/25 10:00 05/15/25 10:00 Atorvastatin Calcium (Lipitor) 20 mg HS PO 05/14/25 22:00 05/14/25 21:58 Losartan Potassium (Cozaar Tablet) 25 mg DAILY PO 05/15/25 10:00 05/15/25 12:18 Metoprolol Succinate (Toprol Xl) 100 mg DAILY PO 05/15/25 10:00 05/15/25 12:19 Apixaban (Eliquis) 2.5 mg BID PO 05/14/25 22:00 05/15/25 12:18 Diagnostic Test (Pha) (Accu-Chek Comfort Curve T) 1 strip ACHS 05/14/25 22:00 05/15/25 11:30 Insulin Human Regular (InsuLIN R) ACHS SC 05/14/25 22:00 Dextrose 50 ml UD PRN IV Blood Sugar LESS THAN 60 05/14/25 20:00 Ondansetron HCl (Zofran) 4 mg Q4HP PRN IV NAUSEA / VOMITING 05/14/25 20:00 Acetaminophen (Tylenol Tablet) 650 mg Q6HP PRN PO PAIN SCALE 1-3 OR TEMP>100.4 05/14/25 20:00 05/15/25 12:18 Nitroglycerin (Ntrostat Sublingual) 0.4 mg Q5MINP PRN SL FOR CHEST PAIN 05/14/25 20:00 Morphine Sulfate 2 mg Q30M PRN IV FOR CHEST PAIN 05/14/25 20:00 Albuterol (Ventolin Medneb) 2.5 mg Q6HPRN PRN NEB SHORTNESS OF BREATH 05/14/25 23:30 Ceftriaxone Sodium 50 ml @ 100 mls/hr Q24H IV 05/15/25 21:00 Azithromycin 250 ml @ 125 mls/hr DAILY IV 05/15/25 10:00 05/15/25 10:00 Family History: Asthma G8 MOTHER, Onset:Unknown FH: cancer G8 FATHER Hypertension G8 FATHER Review of Systems All 12 item review of systems reviewed with the patient nonsignificant except what is mentioned in the history of present illness H&P Exam Vital Signs/I&O Vital Sign Date Time Temp Pulse Resp B/P (MAP) Pulse Ox O2 Delivery O2 Flow Rate FiO2 05/15/25 12:19 116 147/116 05/15/25 09:00 97.5 18 100 97.5 05/15/25 06:28 Nasal Cannula* 2 28 Intake and Output 05/14/25 05/15/25 19:00 07:00 Intake Total 100 ml Balance 100 ml Intake Oral 0 ml IV Total 100 ml Physical Exam Patient lying comfortably in bed Lungs clear to auscultation bilaterally Cardiac exam is tachycardic GI soft nontender was normal Extremity 1+ edema Neuro left hemiplegia Labs/Diagnostic Data Labs/Diagnostic Data Laboratory Tests Test 05/15/25 05:56 05/14/25 21:26 05/14/25 19:05 05/14/25 17:06 Range/Units POC Glucose 84 81 70-106 mg/dl Troponin I High Sensitivity 37 41 </=54 ng/L Test 05/14/25 16:17 Range/Units White Blood Count 7.9 4.4-10.8 10^3/uL Red Blood Count 3.28 L 4.5-5.90 10^6/uL Hemoglobin 10.0 L 13.5-17.5 g/dL Hematocrit 33.1 L 41.0-53.0 % Mean Corpuscular Volume 101.1 H 80.0-100.0 fL Mean Corpuscular Hemoglobin 30.5 28.0-32.0 pg Mean Corpuscular Hemoglobin Concent 30.1 L 32.0-36.0 g/dL Red Cell Distribution Width 17.1 H 11.8-14.3 % Platelet Count 179 140-450 10^3/uL Mean Platelet Volume 7.4 6.9-10.8 fL Neutrophils (%) (Auto) 74.6 37.0-80.0 % Lymphocytes (%) (Auto) 6.7 L 10.0-50.0 % Monocytes (%) (Auto) 9.2 0.0-12.0 % Eosinophils (%) (Auto) 8.7 H 0.0-7.0 % Basophils (%) (Auto) 0.8 0.0-2.0 % Neutrophils # (Auto) 5.9 1.6-8.6 10 ^3/uL Lymphocytes # (Auto) 0.5 0.4-5.4 10 ^3/uL Monocytes # (Auto) 0.7 0-1.3 10 ^3/uL Eosinophils # (Auto) 0.7 0-0.8 10 ^3/uL Basophils # (Auto) 0.1 0-0.2 10 ^3/uL Nucleated Red Blood Cells 0.1 % Sodium Level 139 136-145 mmol/L Potassium Level 3.8 3.5-5.1 mmol/L Chloride Level 102 98-107 mmol/L Carbon Dioxide Level 27 20-31 mmol/L Anion Gap 10 5-15 Blood Urea Nitrogen 25 H 9-23 mg/dL Creatinine 5.61 H 0.700-1.30 mg/dL Glomerular Filtration Rate Calc 10 >90 mL/min BUN/Creatinine Ratio 4.5 L 10.0-20.0 Serum Glucose 110 H 74-106 mg/dL Calcium Level 8.4 L 8.7-10.4 mg/dL Total Bilirubin 0.4 0.2-1.0 mg/dL Aspartate Amino Transferase (AST) 15 13-40 U/L Alanine Aminotransferase (ALT) 9 7-40 U/L Alkaline Phosphatase 91 46-116 U/L Troponin I High Sensitivity 46 </=54 ng/L B-Type Natriuretic Peptide 119.39 0-100 pg/mL Total Protein 6.9 5.7-8.2 g/dL Albumin 3.6 3.2-4.8 g/dL Assessment End-stage renal disease on hemodialysis Pneumonia Chest pain Chronic diastolic Congestive heart failure AFib with RVR Hypertension COPD CVA with left hemiplegia Anemia of chronic of Kidney disease Recommendations Hemodialysis tomorrow Epogen 34820 subQ with hemodialysis Resume home medications Renal diet IV antibiotics Cardiology consult We will continue to follow Patient seen and examined by myself. I discussed my plan of care with the patient and primary nurse at the bedside I would like to thank Kenny for the consult, will follow Plan discussed with: Patient TISH CHOW MD May 15, 2025 08:55
[2025-05-15] MEDS: AZITHROMYCIN 500MG/ 250ML 250 ML IV SCH (10:00)
--- NOTE | 2025-05-15 11:38 | DVHPN2 ---
Reviewed: Care Plan, H&P, Labs, Medications, Previous Orders, Radiology Changes from previous H/P or p: No Changes Objective Vitals Vital Signs Date Time Temp Pulse Resp B/P (MAP) Pulse Ox O2 Delivery O2 Flow Rate FiO2 05/15/25 09:00 97.5 116 18 147/116 (126) 100 97.5 05/15/25 06:28 Nasal Cannula* 2 28 Intake/Output Intake and Output 05/15/25 07:00 Intake Total 100 ml Balance 100 ml Intake Oral 0 ml IV Total 100 ml Medications Current Medications Medications Dose Ordered Sig/Carmen Route Start Time Stop Time Status Last Admin Dose Admin Aspirin 81 mg DAILY PO 05/15/25 10:00 Atorvastatin Calcium 20 mg HS PO 05/14/25 22:00 05/14/25 21:58 20 MG Losartan Potassium 25 mg DAILY PO 05/15/25 10:00 Metoprolol Succinate 100 mg DAILY PO 05/15/25 10:00 Apixaban 2.5 mg BID PO 05/14/25 22:00 05/14/25 21:58 2.5 MG Diagnostic Test (Pha) 1 strip ACHS 05/14/25 22:00 05/15/25 06:07 1 STRIP Insulin Human Regular ACHS SC 05/14/25 22:00 Dextrose 50 ml UD PRN IV 05/14/25 20:00 Ondansetron HCl 4 mg Q4HP PRN IV 05/14/25 20:00 Acetaminophen 650 mg Q6HP PRN PO 05/14/25 20:00 Nitroglycerin 0.4 mg Q5MINP PRN SL 05/14/25 20:00 Morphine Sulfate 2 mg Q30M PRN IV 05/14/25 20:00 Albuterol 2.5 mg Q6HPRN PRN NEB 05/14/25 23:30 Ceftriaxone Sodium 50 ml @ 100 mls/hr Q24H IV 05/15/25 21:00 Azithromycin 250 ml @ 125 mls/hr DAILY IV 05/15/25 10:00 Laboratory Results Laboratory Tests 05/14/25 16:17 Chemistry Test 05/14/25 16:17 Albumin 3.6 g/dL (3.2-4.8) Calcium Level 8.4 mg/dL (8.7-10.4) L Total Protein 6.9 g/dL (5.7-8.2) Cardiac Markers Test 05/14/25 16:17 B-Type Natriuretic Peptide 119.39 pg/mL (0-100) LFT Test 05/14/25 16:17 Alanine Aminotransferase (ALT) 9 U/L (7-40) Alkaline Phosphatase 91 U/L (46-116) Aspartate Amino Transferase (AST) 15 U/L (13-40) Total Bilirubin 0.4 mg/dL (0.2-1.0) Labs and/or images reviewed: Labs reviewed by me, Image(s) reviewed by me Assessment/Plan Assessment/Plan Sepsis, possibly due to pneumonia Chest pain possibly noncardiac Left upper lobe pneumonia: Rocephin azithromycin Acute on chronic respiratory failure ESRD on hemodialysis: Nephrology consult appreciated Diabetes type 2 Hypercholesterolemia Hypertension History of CVA Coronary artery disease Paroxysmal AFib on Eliquis Time spent 70 minutes Advanced care planning time 20 minutes Patient is full code Hospice revoked Plan discussed with: Patient Date of Service: May 15, 2025 Billing Provider: JESSENIA VAZQUEZ MD Common Visit Codes: [id number] CARE 30-74 MIN JESSENIA VAZQUEZ MD May 15, 2025 11:38
[2025-05-15] MEDS: LOSARTAN POTASSIUM 25 MG TAB PO SCH (12:18)
[2025-05-15] MEDS: ACETAMINOPHEN 325 MG TAB PO PRN (12:18)
[2025-05-15] MEDS: METOPROLOL SUCCINATE XL 50 MG TAB PO SCH (12:19)
[2025-05-15 14:45] LABS: Chloride 100 mmol/L (98-107); Potassium 4.1 mmol/L (3.5-5.1); Sodium 136 mmol/L (136-145)
[2025-05-15 14:46] LABS: Anion Gap 7 (5-15); Carbon Dioxide 29 mmol/L (20-31)
[2025-05-15 14:48] LABS: Calcium 8.6 mg/dL (8.7-10.4)
[2025-05-15 14:49] LABS: Magnesium 1.8 mg/dL (1.6-2.6)
[2025-05-15 14:51] LABS: BUN/Creatinine Ratio 3.7 (10.0-20.0); Blood Urea Nitrogen 22 mg/dL (9-23)
[2025-05-15 14:52] LABS: Glucose 111 mg/dL (74-106)
[2025-05-16] VITALS (10 sets, daily range): BP systolic 118–146; BP diastolic 78–91; PULSE 78–83; RESP 18–20; TEMP 97.6–98.6; O2SAT 92–98
[2025-05-16] MEDS ORDERED: SODIUM CHL 0.9% 1000 ML BAG XX ONE (07:00)
--- NOTE | 2025-05-16 08:35 | DVHPN2 ---
Reviewed: Care Plan, H&P, Labs, Medications, Previous Orders, Radiology Changes from previous H/P or p: No Changes Objective Vitals Vital Signs Date Time Temp Pulse Resp B/P (MAP) Pulse Ox O2 Delivery O2 Flow Rate FiO2 05/16/25 08:12 Nasal Cannula* 2 28 05/16/25 08:00 97 05/16/25 05:00 98.6 78 18 146/91 (109) 98.6 Intake/Output Intake and Output 05/16/25 07:00 Intake Total 1000 ml Balance 1000 ml Intake Oral 750 ml IV Total 250 ml # Voids 2 # Bowel Movements 1 Medications Current Medications Medications Dose Ordered Sig/Carmen Route Start Time Stop Time Status Last Admin Dose Admin Aspirin 81 mg DAILY PO 05/15/25 10:00 05/15/25 10:00 81 MG Atorvastatin Calcium 20 mg HS PO 05/14/25 22:00 05/15/25 22:12 20 MG Losartan Potassium 25 mg DAILY PO 05/15/25 10:00 05/15/25 12:18 25 MG Metoprolol Succinate 100 mg DAILY PO 05/15/25 10:00 05/15/25 12:19 100 MG Apixaban 2.5 mg BID PO 05/14/25 22:00 05/15/25 22:12 2.5 MG Diagnostic Test (Pha) 1 strip ACHS 05/14/25 22:00 05/15/25 22:15 1 STRIP Insulin Human Regular ACHS SC 05/14/25 22:00 Dextrose 50 ml UD PRN IV 05/14/25 20:00 Ondansetron HCl 4 mg Q4HP PRN IV 05/14/25 20:00 Acetaminophen 650 mg Q6HP PRN PO 05/14/25 20:00 05/15/25 12:18 650 MG Nitroglycerin 0.4 mg Q5MINP PRN SL 05/14/25 20:00 Morphine Sulfate 2 mg Q30M PRN IV 05/14/25 20:00 Albuterol 2.5 mg Q6HPRN PRN NEB 05/14/25 23:30 Ceftriaxone Sodium 50 ml @ 100 mls/hr Q24H IV 05/15/25 21:00 05/15/25 22:14 100 MLS/HR Azithromycin 250 ml @ 125 mls/hr DAILY IV 05/15/25 10:00 05/15/25 10:00 125 MLS/HR Laboratory Results Laboratory Tests 05/14/25 16:17 05/15/25 13:59 Chemistry Test 05/15/25 13:59 Calcium Level 8.6 mg/dL (8.7-10.4) L Magnesium Level 1.8 mg/dL (1.6-2.6) Phosphorus Level 4.4 mg/dL (2.4-5.1) Microbiology Microbiology Date/Time Source Procedure Growth Status 05/15/25 01:00 Nose MRSA Screen - Final Complete Labs and/or images reviewed: Labs reviewed by me, Image(s) reviewed by me Assessment/Plan Assessment/Plan Sepsis, possibly due to pneumonia Chest pain troponin negative, cardiology consult for Dr. Arroyo Left upper lobe pneumonia: Rocephin azithromycin Left pleural effusion: Radiology consult for Thoracentesis Acute on chronic respiratory failure ESRD on hemodialysis: Nephrology consult appreciated Diabetes type 2 Hypercholesterolemia Hypertension History of CVA Coronary artery disease Paroxysmal AFib on Eliquis Daughter Agatha RN at bedside Time spent 50 minutes Advanced care planning time 20 minutes Patient is full code Hospice revoked Plan discussed with: Patient, Daughter My Orders Orders - JESSENIA VAZQUEZ MD Procedure Category Date Status Time Code Status CODE 05/15/25 Transmitted 11:42 * Dietary Consult CONS 05/15/25 Transmitted 15:44 Cleanse Wound With LULY 05/15/25 In Process Mild Soap A 15:44 * Cardiology Consult CONS 05/16/25 Verified 08:23 Date of Service: May 16, 2025 Billing Provider: JESSENIA VAZQUEZ MD Common Visit Codes: [id number] CARE 30-74 MIN JESSENIA VAZQUEZ MD May 16, 2025 08:35
--- NOTE | 2025-05-16 11:16 | DVHPN2 ---
Progress Note Date Seen: May 16, 2025 Medical Necessity Reason Pt with a Central, PICC or Fol: No Subjective Patient reports: No new complaints, Feels better Other Systems: Patient seen and examined by myself today in follow-up Patient examined hemodialysis, blood pressure stable Objective vital signs Vital Sign Date Time Temp Pulse Resp B/P (MAP) Pulse Ox O2 Delivery O2 Flow Rate FiO2 05/16/25 09:00 97.6 78 20 145/86 (105) 94 97.6 05/16/25 08:12 Nasal Cannula* 2 28 Total Intake and Output 05/15/25 05/15/25 05/16/25 15:00 23:00 07:00 Intake Total 250 ml 600 ml 150 ml Balance 250 ml 600 ml 150 ml medications Current Medications Medications Dose Ordered Sig/Carmen Route Start Time Stop Time Status Last Admin Dose Admin Aspirin 81 mg DAILY PO 05/15/25 10:00 05/16/25 09:52 81 MG Atorvastatin Calcium 20 mg HS PO 05/14/25 22:00 05/15/25 22:12 20 MG Losartan Potassium 25 mg DAILY PO 05/15/25 10:00 05/15/25 12:18 25 MG Metoprolol Succinate 100 mg DAILY PO 05/15/25 10:00 05/15/25 12:19 100 MG Apixaban 2.5 mg BID PO 05/14/25 22:00 05/16/25 09:52 2.5 MG Dextrose 50 ml UD PRN IV 05/14/25 20:00 Ondansetron HCl 4 mg Q4HP PRN IV 05/14/25 20:00 Acetaminophen 650 mg Q6HP PRN PO 05/14/25 20:00 05/15/25 12:18 650 MG Nitroglycerin 0.4 mg Q5MINP PRN SL 05/14/25 20:00 Morphine Sulfate 2 mg Q30M PRN IV 05/14/25 20:00 Albuterol 2.5 mg Q6HPRN PRN NEB 05/14/25 23:30 Ceftriaxone Sodium 50 ml @ 100 mls/hr Q24H IV 05/15/25 21:00 05/15/25 22:14 100 MLS/HR Azithromycin 250 ml @ 125 mls/hr DAILY IV 05/15/25 10:00 05/16/25 09:53 125 MLS/HR Examination: LUNGS:Normal, CVS:Normal, MSK:Normal laboratory and microbiology Laboratory Tests 05/15/25 13:59 05/14/25 16:17 Test 05/15/25 13:59 Range/Units Serum Glucose 111 H 74-106 mg/dL Microbiology Date/Time Source Procedure Growth Status 05/15/25 01:00 Nose MRSA Screen - Final Complete Problem List/Assessment/Plan Problem List/Assessment/Plan End-stage renal disease on hemodialysis Pneumonia Chest pain Chronic diastolic Congestive heart failure AFib with RVR Hypertension COPD CVA with left hemiplegia Anemia of chronic of Kidney disease Hyperparathyroidism, secondary to renal failure Recommendations Continue with UF to 3 L as tolerated Epogen 09589 subQ with hemodialysis Resume home medications Add calcitriol 0.25 mcg p.o. q.day Renal diet IV antibiotics Cardiology consult We will continue to follow Plan discussed with: Patient My Orders My Orders Orders - TISH CHOW MD Procedure Category Date Status Time Hepatitis B Surface LAB 05/16/25 Logged Antigen 09:14 TISH CHOW MD May 16, 2025 11:16
[2025-05-16] MEDS: ALBUTEROL SULF 2.5 MG/0.5ML(0.5%) NEB SOLN NEB SCH (11:30)
--- NOTE | 2025-05-16 12:07 | DVHINCON2 ---
Date Seen: May 16, 2025 Referring Physician MD Daniel Reason for Consultation Chest pain History of Present Illness This is an 80-year-old male patient who presents to the emergency room with chief complaint of chest pain. At the time of assessment, the patient is only alert to self and situation. The patient adamantly denies experiencing any chest pain prior to emergency room arrival. Patient's POA/daughter, Eva, at bedside able to provide further history. Per patient's daughter, the patient was taken to his dialysis appointment without his oxygen tank. She reports his primary caregiver forgot to take the patient on his oxygen tank despite the fact that he is on continuous home oxygen. When the patient reached the dialysis center, he told the dialysis nurses that he was feeling short of breath and had chest pain. Subsequently, EMS was called and the patient was brought to the emergency room for further evaluation. Initial twelve lead electrocardiogram reveals atrial fibrillation (EKG machine reading sinus tachycardia). Initial troponin level of 46ng/L with down trend thereafter. Significant past medical history includes congestive heart failure, hypertension, atrial fibrillation (on Eliquis), COPD on continuous home O2, multiple CVAs with left-sided deficit, ESRD on hemodialysis, prostate cancer status post prostatectomy, dementia, and bed-bound. The patient's daughter reports that the patient was on hospice care prior to emergency room arrival and that she plans to resume hospice care post discharge. Past Medical History Past medical history reviewed. No other significant than mentioned above. Past Surgical History Prostatectomy Family History: Asthma G8 MOTHER, Onset:Unknown FH: cancer G8 FATHER Hypertension G8 FATHER Family History Family history reviewed. Social History Denies the use of tobacco, alcohol or illicit drugs. Allergies: Coded Allergies: NO KNOWN ALLERGIES (Unverified , 03/08/18) Home Meds Active Scripts Metoprolol Succinate (Metoprolol Succinate Er) 100 Mg Tab, 100 MG PO DAILY for 30 Days, #90 TAB 2 Refills Prov:LISE MENDOSA 03/30/25 Aspirin (Aspir-Low) 81 Mg Tab, 81 MG PO DAILY, #60 TAB Prov:GARLAND BLOUNT MD 03/17/24 Atorvastatin Calcium (ATORVASTATIN CALCIUM) 20 Mg Tab, 1 TAB PO DAILY, #90 TAB 1 Refill Prov:TALA GODINEZ MD 08/04/23 Reported Medications Losartan Potassium (Losartan Potassium) 25 Mg Tab, 1 TAB PO BID for HTN for 30 Days, #60 01/17/25 Pantoprazole Sodium Sesquihydr (Pantoprazole Sodium) 40 Mg Tab, 1 TAB PO DAILY 07/17/23 Apixaban Base (ELIQUIS) 2.5 Mg Tab, 1 TAB PO BID for 30 Days, #60 07/17/23 Sevelamer Carbonate (Sevelamer Carbonate) 2.4 Gm Pow, 1 PKT PO BIDWM for 30 Days, #90 07/17/23 Home Meds Home medications reviewed. Current Medications Current Medications Medications (Trade) Dose Ordered Sig/Carmen Route PRN Reason Start Time Stop Time Status Last Admin Ceftriaxone Sodium 50 ml @ 100 mls/hr Q24H IV 05/15/25 21:00 05/15/25 22:14 Calcitriol (Rocaltrol Capsule) 0.25 mcg DAILY PO 05/17/25 10:00 UNV Albuterol (Ventolin Medneb) 2.5 mg Q6HR NEB 05/16/25 11:30 UNV Review of Systems Constitutional: No symptom reported Ears, Nose, & Throat: No symptom reported Eyes: No symptom reported Neurological: No symptoms reported Pulmonary/Respiratory: Shortness of breath Cardiovascular: Chest pain Gastrointestinal: No symptom reported Genitourinary: No symptom reported Musculoskeletal: No symptom reported Skin: No symptom reported Psychiatric: No symptom reported Endocrine: No symptom reported Hematologic/Lymphatic: No symptom reported Vital Signs Vital Signs Date Time Temp Pulse Resp B/P (MAP) Pulse Ox O2 Delivery O2 Flow Rate FiO2 05/16/25 09:00 97.6 78 20 145/86 (105) 94 97.6 05/16/25 08:12 Nasal Cannula* 2 28 Physical Exam General Appearance: Cooperative. Well-developed. Well-nourished. No acute distress. Pulmonary/Respiratory: Diminished bilateral bases Cardiovascular/Chest: Irregularly irregular and rhythm. Peripheral Pulses: 2+ Radial (R). 2+ Radial (L). 1+ Pedal (R). 1+ Pedal (L) Abdominal Exam: Normal bowel sounds. Ankle Exam: Negative ankle edema Lower extremities: Negative lower extremity edema Neuro/Mental Status: A/OX2, confused Thoughts/Psych: Normal thought pattern. Appropriate mood and affect. Good judgment and insight. Appearance: No acute distress. Skin Exam: Normal inspection. Normal color. Warm and dry. Labs/Diagnostic Data Labs Test 05/16/25 10:54 05/15/25 21:34 05/15/25 13:59 05/14/25 19:05 Range/Units POC Glucose 114 H 70-106 mg/dl Sodium Level 136 136-145 mmol/L Potassium Level 4.1 3.5-5.1 mmol/L Chloride Level 100 98-107 mmol/L Carbon Dioxide Level 29 20-31 mmol/L Anion Gap 7 5-15 Blood Urea Nitrogen 22 9-23 mg/dL Creatinine 5.90 H 0.700-1.30 mg/dL Glomerular Filtration Rate Calc 9 >90 mL/min BUN/Creatinine Ratio 3.7 L 10.0-20.0 Serum Glucose 111 H 74-106 mg/dL Calcium Level 8.6 L 8.7-10.4 mg/dL Phosphorus Level 4.4 2.4-5.1 mg/dL Magnesium Level 1.8 1.6-2.6 mg/dL Vitamin D 25-Hydroxy 52.5 30.0-100 ng/mL Parathyroid Hormone (Intact) 385.2 H 18.4-80.1 pg/mL Troponin I High Sensitivity 37 </=54 ng/L Test 05/14/25 16:17 Range/Units White Blood Count 7.9 4.4-10.8 10^3/uL Red Blood Count 3.28 L 4.5-5.90 10^6/uL Hemoglobin 10.0 L 13.5-17.5 g/dL Hematocrit 33.1 L 41.0-53.0 % Mean Corpuscular Volume 101.1 H 80.0-100.0 fL Mean Corpuscular Hemoglobin 30.5 28.0-32.0 pg Mean Corpuscular Hemoglobin Concent 30.1 L 32.0-36.0 g/dL Red Cell Distribution Width 17.1 H 11.8-14.3 % Platelet Count 179 140-450 10^3/uL Mean Platelet Volume 7.4 6.9-10.8 fL Neutrophils (%) (Auto) 74.6 37.0-80.0 % Lymphocytes (%) (Auto) 6.7 L 10.0-50.0 % Monocytes (%) (Auto) 9.2 0.0-12.0 % Eosinophils (%) (Auto) 8.7 H 0.0-7.0 % Basophils (%) (Auto) 0.8 0.0-2.0 % Neutrophils # (Auto) 5.9 1.6-8.6 10 ^3/uL Lymphocytes # (Auto) 0.5 0.4-5.4 10 ^3/uL Monocytes # (Auto) 0.7 0-1.3 10 ^3/uL Eosinophils # (Auto) 0.7 0-0.8 10 ^3/uL Basophils # (Auto) 0.1 0-0.2 10 ^3/uL Nucleated Red Blood Cells 0.1 % Total Bilirubin 0.4 0.2-1.0 mg/dL Aspartate Amino Transferase (AST) 15 13-40 U/L Alanine Aminotransferase (ALT) 9 7-40 U/L Alkaline Phosphatase 91 46-116 U/L B-Type Natriuretic Peptide 119.39 0-100 pg/mL Total Protein 6.9 5.7-8.2 g/dL Albumin 3.6 3.2-4.8 g/dL Microbiology Date/Time Source Procedure Growth Status 05/15/25 01:00 Nose MRSA Screen - Final Complete Assessment Chronic HFpEF, NYHA class III Atrial fibrillation, likely persistent (on Eliquis) Hypertension Pneumonia Left pleural effusion COPD on continuous home O2 History multiple CVAs with left-sided deficit ESRD on HD Prostate cancer status post prostatectomy Dementia Bed-bound Plan/Recommendation We will continue following plan/recommendations (Dr. Arroyo): Previous transthoracic echocardiogram from 01/13/2025 reveals EF of 60%. At the time of assessment, the patient denies any chest pain. Troponin levels have been negative. Per the patient's daughter/POA, Eva at bedside, the patient comes from hospice care and will be returning to hospice care post discharge. The patient's daughter states that she does not want any invasive cardiac workup at this time as patient will be returning on hospice care. There is no further inpatient cardiac workup indicated at this time. Cardiology will sign off. Thank you for allowing us to care for this patient. Please call with any questions or concerns. Critical care time spent: 44 minutes This medical document was created using an electronic medical record system with voice recognition software and computerized dictation system. Although this document has been carefully reviewed, there might still be some phonetic and typographical errors. Occasional wrong-word or ``sound-alike substitutions may have occurred due to the inherent limitations of voice recognition software. These areas are purely typographical due to imperfections of the software programs and do not reflect any compromise in the patient's medical care. Please read the chart carefully and recognize, using context, where these substitutions have occurred. Plan discussed with: Patient, Daughter, Other (Bedside RN) NYHA Physical activity limitations: Class3(Marked) ordinary (activity causes symtoms) Date of Service: May 16, 2025 Billing Provider: DIANNE BRADLEY Cardiology Common Codes: [id number] INP/OBS CARE (High) Cardiology Consultation Codes: [id number] CONSULT <45MIN DIANNE BRADLEY May 16, 2025 12:07
--- NOTE | 2025-05-16 13:29 | DVH ---
US CHEST ULTRASOUND, HISTORY: fluid check for thora COMPARISON(S): XY CHEST PORTABLE on DOS: 05/14/25, XY 1 VIEW DECUBITUS CHEST XRAY on DOS: 03/29/25, XY C HEST PORTABLE on DOS: 03/27/25 TECHNICAL DATA: Transverse and longitudinal images are obtained of the chest. FINDING: IMPRESSION(S): Trace bilateral pleural effusions.
[2025-05-16 13:55] LABS: INR 1.14 (0.9-1.15); Partial Thromboplastin Time 32.9 SEC (24.5-34.5); Prothrombin Time 11.9 sec (9.3-11.8)
[2025-05-16 20:38] LABS: Hematocrit 31.6 % (41.0-53.0); Hemoglobin 9.8 g/dL (13.5-17.5)
[2025-05-16] MEDS: EPOETIN ALFA-EPBX 10,000 UNIT/1ML VIAL SC ONE (21:59)
[2025-05-17] VITALS (14 sets, daily range): BP systolic 89–164; BP diastolic 38–116; PULSE 78–116; RESP 15–21; TEMP 36.7; O2SAT 93–100
[2025-05-17] MEDS: CALCITRIOL 0.25 MCG CAP PO SCH (09:54)
--- NOTE | 2025-05-17 09:56 | DVHPN2 ---
Reviewed: Care Plan, H&P, Labs, Medications, Previous Orders, Radiology Changes from previous H/P or p: No Changes Objective Vitals Vital Signs Date Time Temp Pulse Resp B/P (MAP) Pulse Ox O2 Delivery O2 Flow Rate FiO2 05/17/25 09:17 98.0 91 18 89/38 (55) 95 98.0 05/17/25 00:05 Nasal Cannula* 2 28 Intake/Output Intake and Output 05/17/25 07:00 Intake Total 1460 ml Output Total 1 ml Balance 1459 ml Intake Oral 1160 ml IV Total 300 ml Output Urine Total 1 ml # Bowel Movements 2 Medications Current Medications Medications Dose Ordered Sig/Carmen Route Start Time Stop Time Status Last Admin Dose Admin Aspirin 81 mg DAILY PO 05/15/25 10:00 05/16/25 09:52 81 MG Atorvastatin Calcium 20 mg HS PO 05/14/25 22:00 05/16/25 21:59 20 MG Losartan Potassium 25 mg DAILY PO 05/15/25 10:00 05/15/25 12:18 25 MG Metoprolol Succinate 100 mg DAILY PO 05/15/25 10:00 05/15/25 12:19 100 MG Apixaban 2.5 mg BID PO 05/14/25 22:00 05/16/25 21:59 2.5 MG Dextrose 50 ml UD PRN IV 05/14/25 20:00 Ondansetron HCl 4 mg Q4HP PRN IV 05/14/25 20:00 Acetaminophen 650 mg Q6HP PRN PO 05/14/25 20:00 05/15/25 12:18 650 MG Nitroglycerin 0.4 mg Q5MINP PRN SL 05/14/25 20:00 Morphine Sulfate 2 mg Q30M PRN IV 05/14/25 20:00 Ceftriaxone Sodium 50 ml @ 100 mls/hr Q24H IV 05/15/25 21:00 05/16/25 21:58 100 MLS/HR Azithromycin 250 ml @ 125 mls/hr DAILY IV 05/15/25 10:00 05/16/25 09:53 125 MLS/HR Calcitriol 0.25 mcg DAILY PO 05/17/25 10:00 Albuterol 2.5 mg Q6HR NEB 05/16/25 11:30 Laboratory Results Laboratory Tests 05/14/25 16:17 05/15/25 13:59 05/16/25 10:54 Coagulation Test 05/16/25 13:14 Prothrombin Time 11.9 sec (9.3-11.8) H Prothrombin Time INR 1.14 (0.9-1.15) Activated Partial Thromboplast Time 32.9 SEC (24.5-34.5) Microbiology Microbiology Date/Time Source Procedure Growth Status 05/15/25 01:00 Nose MRSA Screen - Final Complete Labs and/or images reviewed: Labs reviewed by me, Image(s) reviewed by me Assessment/Plan Assessment/Plan Sepsis, possibly due to pneumonia Chest pain troponin negative, cardiology consult for Dr. Arroyo Left upper lobe pneumonia: Rocephin azithromycin Left pleural effusion: Radiology consult for Thoracentesis Acute on chronic respiratory failure ESRD on hemodialysis: Nephrology consult appreciated Diabetes type 2 Hypercholesterolemia Hypertension History of CVA Coronary artery disease Paroxysmal AFib on Eliquis Daughter Agatha RN at bedside Time spent 50 minutes Advanced care planning time 20 minutes Patient is full code Hospice revoked Plan discussed with: Patient My Orders Orders - JESSENIA VAZQUEZ MD Procedure Category Date Status Time Dietary NOTICE 05/16/25 Transmitted Recommendations 11:20 Albuterol Medneb PHA 05/16/25 In Process (Ventolin Medneb) 11:30 Date of Service: May 17, 2025 Billing Provider: JESSENIA VAZQUEZ MD Common Visit Codes: [id number] INP/OBS CARE(HIGH) JESSENIA VAZQUEZ MD May 17, 2025 09:56
[2025-05-17] MEDS ORDERED: AZIT500T66 PO (10:03)
[2025-05-17] MEDS ORDERED: PRED20TA2 PO (10:03)
--- NOTE | 2025-05-17 10:18 | DVHDS2 ---
Discharge Summary Date of Admission May 14, 2025 at 19:48 Date of Discharge: May 17, 2025 Admitting Diagnosis Shortness of breath Wounds: None Labs/Diagnostic Data: Laboratory Results Test 05/16/25 13:14 05/16/25 10:54 05/15/25 21:34 05/15/25 13:59 Prothrombin Time 11.9 sec (9.3-11.8) Prothrombin Time INR 1.14 (0.9-1.15) Activated Partial Thromboplast Time 32.9 SEC (24.5-34.5) Hemoglobin 9.8 g/dL (13.5-17.5) Hematocrit 31.6 % (41.0-53.0) Hepatitis B Surface Antigen Negative (Negative) POC Glucose 114 mg/dl (70-106) Sodium Level 136 mmol/L (136-145) Potassium Level 4.1 mmol/L (3.5-5.1) Chloride Level 100 mmol/L (98-107) Carbon Dioxide Level 29 mmol/L (20-31) Anion Gap 7 (5-15) Blood Urea Nitrogen 22 mg/dL (9-23) Creatinine 5.90 mg/dL (0.700-1.30) Glomerular Filtration Rate Calc 9 mL/min (>90) BUN/Creatinine Ratio 3.7 (10.0-20.0) Serum Glucose 111 mg/dL (74-106) Calcium Level 8.6 mg/dL (8.7-10.4) Phosphorus Level 4.4 mg/dL (2.4-5.1) Magnesium Level 1.8 mg/dL (1.6-2.6) Vitamin D 25-Hydroxy 52.5 ng/mL (30.0-100) Parathyroid Hormone (Intact) 385.2 pg/mL (18.4-80.1) Test 05/14/25 19:05 05/14/25 16:17 Troponin I High Sensitivity 37 ng/L (</=54) White Blood Count 7.9 10^3/uL (4.4-10.8) Red Blood Count 3.28 10^6/uL (4.5-5.90) Mean Corpuscular Volume 101.1 fL (80.0-100.0) Mean Corpuscular Hemoglobin 30.5 pg (28.0-32.0) Mean Corpuscular Hemoglobin Concent 30.1 g/dL (32.0-36.0) Red Cell Distribution Width 17.1 % (11.8-14.3) Platelet Count 179 10^3/uL (140-450) Mean Platelet Volume 7.4 fL (6.9-10.8) Neutrophils (%) (Auto) 74.6 % (37.0-80.0) Lymphocytes (%) (Auto) 6.7 % (10.0-50.0) Monocytes (%) (Auto) 9.2 % (0.0-12.0) Eosinophils (%) (Auto) 8.7 % (0.0-7.0) Basophils (%) (Auto) 0.8 % (0.0-2.0) Neutrophils # (Auto) 5.9 10 ^3/uL (1.6-8.6) Lymphocytes # (Auto) 0.5 10 ^3/uL (0.4-5.4) Monocytes # (Auto) 0.7 10 ^3/uL (0-1.3) Eosinophils # (Auto) 0.7 10 ^3/uL (0-0.8) Basophils # (Auto) 0.1 10 ^3/uL (0-0.2) Nucleated Red Blood Cells 0.1 % Total Bilirubin 0.4 mg/dL (0.2-1.0) Aspartate Amino Transferase (AST) 15 U/L (13-40) Alanine Aminotransferase (ALT) 9 U/L (7-40) Alkaline Phosphatase 91 U/L (46-116) B-Type Natriuretic Peptide 119.39 pg/mL (0-100) Total Protein 6.9 g/dL (5.7-8.2) Albumin 3.6 g/dL (3.2-4.8) Other Laboratory Tests 05/16/25 10:54 05/15/25 13:59 05/14/25 16:17 Brief Hx & Hospital Course: 80-year-old male with a history of hypotension CVA hypercholesterolemia diabetes type 2 ESRD on hemodialysis chronic respiratory failure on home oxygen history of coronary artery disease paroxysmal AFib on Eliquis admitted for shortness of breaths found to have possible community-acquired pneumonia treated with Rocephin azithromycin mild pleural effusion in the left side Radiology consult for thoracentesis and felt it is 2 L to drain seen by Cardiology for chest pain troponin negative . Patient's daughter Agatha did not want any surgical intervention. Patient feels better and is requesting to be discharged home. Patient was on [facility]. discharged back on hospice Consults/Reason for consult Cardiology Operations or Procedures None Condition at Discharge: Fair Final Diagnosis/Problems List Sepsis, possibly due to pneumonia Chest pain troponin negative, cardiology consult for Dr. Arroyo, the daughter does not want any surgical intervention Left upper lobe pneumonia: Rocephin azithromycin Left pleural effusion: Radiology consult for Thoracentesis Acute on chronic respiratory failure ESRD on hemodialysis: Nephrology consult appreciated Diabetes type 2 Hypercholesterolemia Hypertension History of CVA Coronary artery disease Paroxysmal AFib on Eliquis Discharge Disposition: Hospice - Home Discharge Instruct/Medications Diet: Cardiac 2g Na,low cholest Activity: Light activity Follow Up/Referral: Resume all previous home medications Follow up with your primary doctor Medications: Azithromycin Prednisone [facility] Scheduled Apixaban Base (Eliquis), 1 TAB PO BID, (Reported) Aspirin (Aspir-Low), 81 MG PO DAILY Atorvastatin Calcium (Atorvastatin Calcium), 1 TAB PO DAILY Azithromycin (Azithromycin), 1 TAB PO DAILY Losartan Potassium (Losartan Potassium), 1 TAB PO BID, (Reported) Metoprolol Succinate (Metoprolol Succinate Er), 100 MG PO DAILY Pantoprazole Sodium Sesquihydr (Pantoprazole Sodium), 1 TAB PO DAILY, (Reported) Prednisone (Prednisone), 20 MG PO DAILY Sevelamer Carbonate (Sevelamer Carbonate), 1 PKT PO BIDWM, (Reported) 39 (Time taken for discharge summary 39 minutes) Discharge Statement: "Patient was advised to return to the ER or call 911 if any headaches, dizziness, shortness of breath, chest pain, abdominal pain, bleeding, fevers, or worsening of medical condition. Patient was counseled about treatment plan, medications, possible side effects, patientverbalized understanding. All questions were answered to the best of my ability. This discharge took greater then 30 minutes in planning, reviewing documentation, counseling the patient, and discussing with other team members." ASSESSMENT ASSESSMENT Hospital Course Uneventful Assessment Sepsis, possibly due to pneumonia Chest pain troponin negative, cardiology consult for Dr. Arroyo, the daughter does not want any surgical intervention Left upper lobe pneumonia: Rocephin azithromycin Left pleural effusion: Radiology consult for Thoracentesis Acute on chronic respiratory failure ESRD on hemodialysis: Nephrology consult appreciated Diabetes type 2 Hypercholesterolemia Hypertension History of CVA Coronary artery disease Paroxysmal AFib on Eliquis Date of Service: May 17, 2025 Billing Provider: JESSENIA VAZQUEZ MD Common Visit Codes: [id number] DISCH DAY >30min JESSENIA VAZQUEZ MD May 17, 2025 10:18
--- NOTE | 2025-05-17 14:27 | DVHPN2 ---
Progress Note Date Seen: May 17, 2025 Medical Necessity Reason Pt with a Central, PICC or Fol: No Subjective Patient reports: No new complaints Other Systems: Patient seen and examined by myself today in follow-up Objective vital signs Vital Sign Date Time Temp Pulse Resp B/P (MAP) Pulse Ox O2 Delivery O2 Flow Rate FiO2 05/17/25 13:00 98.0 87 15 160/101 (120) 96 98.0 05/17/25 11:56 Nasal Cannula* 2 28 Total Intake and Output 05/16/25 05/16/25 05/17/25 15:00 23:00 07:00 Intake Total 250 ml 730 ml 480 ml Output Total 1 ml Balance 250 ml 729 ml 480 ml medications Current Medications Medications Dose Ordered Sig/Carmen Route Start Time Stop Time Status Last Admin Dose Admin Aspirin 81 mg DAILY PO 05/15/25 10:00 05/17/25 09:54 81 MG Atorvastatin Calcium 20 mg HS PO 05/14/25 22:00 05/16/25 21:59 20 MG Losartan Potassium 25 mg DAILY PO 05/15/25 10:00 05/15/25 12:18 25 MG Metoprolol Succinate 100 mg DAILY PO 05/15/25 10:00 05/15/25 12:19 100 MG Apixaban 2.5 mg BID PO 05/14/25 22:00 05/17/25 09:54 2.5 MG Dextrose 50 ml UD PRN IV 05/14/25 20:00 Ondansetron HCl 4 mg Q4HP PRN IV 05/14/25 20:00 Acetaminophen 650 mg Q6HP PRN PO 05/14/25 20:00 05/15/25 12:18 650 MG Nitroglycerin 0.4 mg Q5MINP PRN SL 05/14/25 20:00 Morphine Sulfate 2 mg Q30M PRN IV 05/14/25 20:00 Ceftriaxone Sodium 50 ml @ 100 mls/hr Q24H IV 05/15/25 21:00 05/16/25 21:58 100 MLS/HR Azithromycin 250 ml @ 125 mls/hr DAILY IV 05/15/25 10:00 05/17/25 09:53 125 MLS/HR Calcitriol 0.25 mcg DAILY PO 05/17/25 10:00 05/17/25 09:54 0.25 MCG Albuterol 2.5 mg Q6HR NEB 05/16/25 11:30 05/17/25 11:54 2.5 MG Examination: LUNGS:Normal, CVS:Normal, MSK:Normal laboratory and microbiology Laboratory Tests 05/16/25 10:54 05/15/25 13:59 05/14/25 16:17 Test 05/15/25 13:59 Range/Units Serum Glucose 111 H 74-106 mg/dL Microbiology Date/Time Source Procedure Growth Status 05/15/25 01:00 Nose MRSA Screen - Final Complete Problem List/Assessment/Plan Problem List/Assessment/Plan End-stage renal disease on hemodialysis Pneumonia Chest pain Chronic diastolic Congestive heart failure AFib with RVR Hypertension COPD CVA with left hemiplegia Anemia of chronic of Kidney disease Hyperparathyroidism, secondary to renal failure Recommendations HD tomorrow Epogen [id number] subQ with hemodialysis Resume home medications Add calcitriol 0.25 mcg p.o. q.day Renal diet IV antibiotics Cardiology consult We will continue to follow Plan discussed with: Patient Dietary Evaluation Review Comments: Nutrition Recommendation 1) Consider CCHO 75gm + renal standard diet 2) Monitor PO intake, lab values, weight trend, and I/O Expected Outcomes/Goals: To meet >75% estimated needs Fu 3-5 days TISH CHOW MD May 17, 2025 14:27
== END 2025-05-17 18:40 | disposition hospice, home (50) | DRG 871 ==
LOC: EDBD 15:56 → ER 15:56 → OVERFLOW 19:48 → TELE-CENTR 19:52
PROVIDERS: ADMIT Family Medicine; ATTEND Family Medicine
PROC: 5A1D70Z Performance of Urinary Filtration, Intermittent, Less than 6 Hours Per Day (ICD-10-PCS; principal; 2025-05-16)
DX: A41.59 Other Gram-negative sepsis (principal); J15.69 Pneumonia due to other Gram-negative bacteria; J96.20 Acute and chronic respiratory failure, unspecified whether with hypoxia or hypercapnia; N18.6 End stage renal disease; J15.9 Unspecified bacterial pneumonia; I13.2 Hypertensive heart and chronic kidney disease with heart failure and with stage 5 chronic kidney disease, or end stage renal disease; I50.32 Chronic diastolic (congestive) heart failure; J44.0 Chronic obstructive pulmonary disease with (acute) lower respiratory infection; I69.354 Hemiplegia and hemiparesis following cerebral infarction affecting left non-dominant side; N25.81 Secondary hyperparathyroidism of renal origin; D63.1 Anemia in chronic kidney disease; Z51.5 Encounter for palliative care; E11.22 Type 2 diabetes mellitus with diabetic chronic kidney disease; E78.00 Pure hypercholesterolemia, unspecified; I25.10 Atherosclerotic heart disease of native coronary artery without angina pectoris; I48.0 Paroxysmal atrial fibrillation; F03.90 Unspecified dementia, unspecified severity, without behavioral disturbance, psychotic disturbance, mood disturbance, and anxiety; M10.9 Gout, unspecified; K21.9 Gastro-esophageal reflux disease without esophagitis; Z99.81 Dependence on supplemental oxygen; Z99.2 Dependence on renal dialysis; Z90.79 Acquired absence of other genital organ(s); Z85.46 Personal history of malignant neoplasm of prostate; Z82.5 Family history of asthma and other chronic lower respiratory diseases; Z82.49 Family history of ischemic heart disease and other diseases of the circulatory system; Z79.01 Long term (current) use of anticoagulants; Z74.01 Bed confinement status
CPT/HCPCS: 36415; 71045; 76604; 80048; 80053; 82306; 82962; 83735; 83880; 83970; 84100; 84484; 85014; 85018; 85025; 85610; 85730; 87081; 87340; 90935; 93005; 94640; G0378